=== PATIENT | female | born 1945 | race Caucasian/White ===

== ENCOUNTER 2017-03-22 14:44 | Observation (INO) | payer MEDICARE ==
--- NOTE | 2017-03-22 16:26 | ED ---
General Adult HPI - General Chief complaint: Chest Pain Stated complaint: Near-syncope Time Seen by Provider: 03/22/17 16:01 Source: patient, RN notes reviewed Mode of arrival: wheelchair Limitations: no limitations - History of Present Illness Initial comments: Patient is a pleasant 71-year-old female presenting to the emergency department for near syncopal episode. Episode occurred last night following a stressful situation. Patient did fall down and did feel like she was about to pass out. Patient did not fully pass out. Patient has had a few similar episodes in the past. Patient denies any chest discomfort last night. Patient states there was some discomfort between her shoulder ivis however this is fairly common for her. 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 Patient is symptom-free at this time. - Related Data Home Medications Medication Instructions Recorded Confirmed ALPRAZolam [Xanax] 0.25 mg PO TID PRN 03/22/17 03/22/17 Albuterol Nebulized [Ventolin 2.5 mg INHALATION RT-QID PRN 03/22/17 03/22/17 Nebulized] Aspirin EC [Ecotrin Low Dose] 81 mg PO DAILY 03/22/17 03/22/17 Dexamethasone [Hexadrol] 2 mg PO DAILY 03/22/17 03/22/17 Ergocalciferol [Vitamin D2] 50,000 unit PO MO 03/22/17 03/22/17 Esomeprazole Magnesium [NexIUM] 40 mg PO DAILY 03/22/17 03/22/17 Fluticasone/Vilanterol [Breo 1 puff INHALATION RT-DAILY 03/22/17 03/22/17 Ellipta 100-25 Mcg Inhaler] Folic Acid 1 mg PO DAILY 03/22/17 03/22/17 Furosemide [Lasix] 20 mg PO HS 03/22/17 03/22/17 Furosemide [Lasix] 40 mg PO DAILY 03/22/17 03/22/17 Lisinopril [Zestril] 5 mg PO BID 03/22/17 03/22/17 Methotrexate Sodium [Methotrexate] 7.5 mg PO MADISON@2100 03/22/17 03/22/17 Montelukast [Singulair] 10 mg PO HS 03/22/17 03/22/17 Nitroglycerin Sl Tabs [Nitrostat] 0.4 mg PO Q5M PRN 03/22/17 03/22/17 Potassium Chloride [Klor-Con 10] 5 meq PO DAILY 03/22/17 03/22/17 buPROPion [Wellbutrin] 75 mg PO DAILY 03/22/17 03/22/17 levETIRAcetam [Keppra] 500 mg PO BID 03/22/17 03/22/17 Allergies Allergy/AdvReac Type Severity Reaction Status Date / Time Penicillins Allergy Rash/Hives Verified 03/22/17 16:39 Review of Systems ROS Statement: Those systems with pertinent positive or pertinent negative responses have been documented in the HPI. ROS Other: All systems not noted in ROS Statement are negative. Constitutional: Denies: fever Eyes: Denies: eye pain ENT: Denies: ear pain Respiratory: Denies: cough Cardiovascular: Denies: palpitations Endocrine: Denies: fatigue Gastrointestinal: Denies: abdominal pain Genitourinary: Denies: dysuria Musculoskeletal: Reports: back pain Skin: Denies: rash Neurological: Denies: weakness Past Medical History Past Medical History: Asthma, Heart Failure, Hypertension, Rheumatoid Arthritis (RA) History of Any Multi-Drug Resistant Organisms: None Reported Past Surgical History: Cholecystectomy Past Psychological History: Anxiety, Depression Smoking Status: Former smoker Past Alcohol Use History: None Reported Past Drug Use History: None Reported General Exam Limitations: no limitations General appearance: alert, in no apparent distress Head exam: Present: atraumatic Eye exam: Present: normal appearance, PERRL ENT exam: Present: normal oropharynx Neck exam: Present: normal inspection Respiratory exam: Present: normal lung sounds bilaterally Cardiovascular Exam: Present: regular rate, normal rhythm Expanded Peripheral pulses: 2+: Radial (R), Radial (L), Dorsalis Pedis (R), Dorsalis Pedis (L) GI/Abdominal exam: Present: soft. Absent: distended, tenderness Extremities exam: Present: normal inspection Back exam: Present: normal inspection Neurological exam: Present: alert, oriented X3, CN II-XII intact. Absent: motor sensory deficit Expanded Motor strength exam: RUE: 5, LUE: 5, RLE: 5, LLE: 5 Psychiatric exam: Present: normal affect, normal mood Skin exam: Absent: rash Course Vital Signs 03/22/17 03/22/17 03/22/17 15:12 15:54 16:00 Temperature 98.3 F Pulse Rate 94 86 88 Respiratory 20 20 20 Rate Blood Pressure 131/74 147/81 138/84 O2 Sat by Pulse 96 96 96 Oximetry 03/22/17 03/22/17 16:54 17:11 Temperature Pulse Rate 86 81 Respiratory 20 20 Rate Blood Pressure 119/70 112/67 O2 Sat by Pulse 94 L 94 L Oximetry EKG Findings - EKG Comments: EKG Findings:: Normal sinus rhythm and 92. NJ 154. QRS 120. QT 374. QTC 462. Normal axis. Nonspecific intraventricular conduction delay. No acute ST changes. Medical Decision Making - Medical Decision Making Patient reexamined and resting comfortably in bed. Secondary to elevated d- dimer computed tomography scan of the chest has been ordered. Patient does have some sort of abnormality on previous computed tomography scan and is being seen at [facility] for this. Patient is scheduled for MRI on the of this month. Patient is updated regarding results. Patient is recommended admission. Patient would not like to have MRI done at this time and wants it kept on the at [place]. Case was discussed in detail with Dr. Sharif, who will admit for Dr. Loomis - Lab Data Result diagrams: 03/22/17 16:00 03/22/17 16:00 Lab Results 03/22/17 03/22/17 03/22/17 Range/Units 16:00 16:00 16:00 WBC 11.0 H (3.8-10.6) k/uL RBC 3.98 (3.80-5.40) m/uL Hgb 12.2 (11.4-16.0) gm/dL Hct 37.8 (34.0-46.0) % MCV 95.0 (80.0-100.0) fL MCH 30.7 (25.0-35.0) pg MCHC 32.4 (31.0-37.0) g/dL RDW 15.0 (11.5-15.5) % Plt Count 387 (150-450) k/uL Neutrophils % 88 % Lymphocytes % 6 % Monocytes % 5 % Eosinophils % 0 % Basophils % 0 % Neutrophils # 9.6 H (1.3-7.7) k/uL Lymphocytes # 0.7 L (1.0-4.8) k/uL Monocytes # 0.5 (0-1.0) k/uL Eosinophils # 0.0 (0-0.7) k/uL Basophils # 0.0 (0-0.2) k/uL PT (9.0-12.0) sec INR (<1.1) APTT (22.0-30.0) sec D-Dimer (<0.60) mg/L FEU Sodium 136 L (137-145) mmol/L Potassium 4.8 (3.5-5.1) mmol/L Chloride 100 (98-107) mmol/L Carbon Dioxide 29 (22-30) mmol/L Anion Gap 7 mmol/L BUN 19 H (7-17) mg/dL Creatinine 0.86 (0.52-1.04) mg/dL Est GFR (MDRD) Af Amer >60 (>60 ml/min/1.73 sqM) Est GFR (MDRD) Non-Af >60 (>60 ml/min/1.73 sqM) Glucose 110 H (74-99) mg/dL Calcium 9.3 (8.4-10.2) mg/dL Total Bilirubin 0.7 (0.2-1.3) mg/dL AST 30 (14-36) U/L ALT 37 (9-52) U/L Alkaline Phosphatase 82 (38-126) U/L Total Creatine Kinase 78 (30-135) U/L CK-MB (CK-2) 1.3 (0.0-2.4) ng/mL CK-MB (CK-2) Rel Index 1.7 Troponin I <0.012 (0.000-0.034) ng/mL Total Protein 7.0 (6.3-8.2) g/dL Albumin 3.9 (3.5-5.0) g/dL Urine Color Urine Appearance (Clear) Urine pH (5.0-8.0) Ur Specific [place] (1.001-1.035) Urine Protein (Negative) Urine Glucose (UA) (Negative) Urine Ketones (Negative) Urine Blood (Negative) Urine Nitrite (Negative) Urine Bilirubin (Negative) Urine Urobilinogen (<2.0) mg/dL Ur Leukocyte Esterase (Negative) 03/22/17 03/22/17 Range/Units 16:00 16:00 WBC (3.8-10.6) k/uL RBC (3.80-5.40) m/uL Hgb (11.4-16.0) gm/dL Hct (34.0-46.0) % MCV (80.0-100.0) fL MCH (25.0-35.0) pg MCHC (31.0-37.0) g/dL RDW (11.5-15.5) % Plt Count (150-450) k/uL Neutrophils % % Lymphocytes % % Monocytes % % Eosinophils % % Basophils % % Neutrophils # (1.3-7.7) k/uL Lymphocytes # (1.0-4.8) k/uL Monocytes # (0-1.0) k/uL Eosinophils # (0-0.7) k/uL Basophils # (0-0.2) k/uL PT 10.0 (9.0-12.0) sec INR 1.0 (<1.1) APTT 21.2 L (22.0-30.0) sec D-Dimer 1.30 H (<0.60) mg/L FEU Sodium (137-145) mmol/L Potassium (3.5-5.1) mmol/L Chloride (98-107) mmol/L Carbon Dioxide (22-30) mmol/L Anion Gap mmol/L BUN (7-17) mg/dL Creatinine (0.52-1.04) mg/dL Est GFR (MDRD) Af Amer (>60 ml/min/1.73 sqM) Est GFR (MDRD) Non-Af (>60 ml/min/1.73 sqM) Glucose (74-99) mg/dL Calcium (8.4-10.2) mg/dL Total Bilirubin (0.2-1.3) mg/dL AST (14-36) U/L ALT (9-52) U/L Alkaline Phosphatase (38-126) U/L Total Creatine Kinase (30-135) U/L CK-MB (CK-2) (0.0-2.4) ng/mL CK-MB (CK-2) Rel Index Troponin I (0.000-0.034) ng/mL Total Protein (6.3-8.2) g/dL Albumin (3.5-5.0) g/dL Urine Color Colorless Urine Appearance Clear (Clear) Urine pH 6.0 (5.0-8.0) Ur Specific [place] 1.002 (1.001-1.035) Urine Protein Negative (Negative) Urine Glucose (UA) Negative (Negative) Urine Ketones Negative (Negative) Urine Blood Negative (Negative) Urine Nitrite Negative (Negative) Urine Bilirubin Negative (Negative) Urine Urobilinogen <2.0 (<2.0) mg/dL Ur Leukocyte Esterase Negative (Negative) - Radiology Data Radiology results: report reviewed (He T scan of the brain shows vasogenic edema right posterior parietal/occipital region.), image reviewed (Two-view chest x-ray shows atelectasis.) Disposition Clinical Impression: Near syncope Disposition: ADMITTED IP TO THIS HOSP
[2017-03-22 16:34] LABS: Basophils % (A) 0 %; CHCM 32.8; Eosinophils % (A) 0 %; HCT 37.8 % (34.0-46.0); HDW 2.62; HGB 12.2 gm/dL (11.4-16.0); Luc % (Auto) 1; Lymphocytes # (A) 0.7 k/uL (1.0-4.8); Lymphocytes % (A) 6 %; MCH 30.7 pg (25.0-35.0); MCHC 32.4 g/dL (31.0-37.0); Mean Platelet Volume 6.5; Monocytes # (A) 0.5 k/uL (0-1.0); Monocytes % (A) 5 %; Neutrophils # (A) 9.6 k/uL (1.3-7.7); Neutrophils % (A) 88 %; RBC 3.98 m/uL (3.80-5.40)
[2017-03-22 16:40] LABS: Appearance,Urine Clear (Clear); Bilirubin,Urine Negative (Negative); Glucose,Urine (UA) Negative (Negative); Ketones,Urine Negative (Negative); Leukocyte Esterase,Urine Negative (Negative); Nitrite,Urine Negative (Negative); Protein,Urine Negative (Negative); Specific Gravity,Urine 1.002 (1.001-1.035); UA Billing (MACRO vs. MICRO) CHEM; Urobilinogen,Urine <2.0 mg/dL (<2.0)
[2017-03-22 16:44] LABS: ALT 37 U/L (9-52); AST 30 U/L (14-36); Alkaline Phosphatase 82 U/L (38-126); Anion Gap 7 mmol/L; Blood Urea Nitrogen 19 mg/dL (7-17); Calcium 9.3 mg/dL (8.4-10.2); Carbon Dioxide 29 mmol/L (22-30); Chloride 100 mmol/L (98-107); Glucose 110 mg/dL (74-99); Non-African American GFR(MDRD) >60 (>60 ml/min/1.73 sqM); Potassium 4.8 mmol/L (3.5-5.1); Sodium 136 mmol/L (137-145); Total Bilirubin 0.7 mg/dL (0.2-1.3)
[2017-03-22 16:58] LABS: Creatine Kinase 78 U/L (30-135)
--- NOTE | 2017-03-22 17:03 | CT ---
EXAMINATION TYPE: CT brain wo con DATE OF EXAM: 03/22/2017 4:52 PM COMPARISON: NONE INDICATION: episode of weakness yesterday. No known injury DLP: 1123 mGycm, Automated exposure control for dose reduction was used. CONTRAST: None CT of the brain is performed utilizing 3 mm thick sections through the posterior fossa and 3 mm thick sections through the remaining calvarium. Study is performed within 24 hours of arrival to the hosp ital. No abnormal hyperdensity is present to suggest an acute intracranial hemorrhage. No mass lesion is evident. No acute infarcts are evident. There is diffuse hypodensity within the deep white matter of the right centrum semiovale greater in the posterior parietal-occipital region suspicious for vasogenic edema from an underlying mass. Consider MRI with contrast for additional workup for neoplasm. This is effac ing the posterior horn left lateral ventricle. Ventricles and sulci are otherwise appropriate for the patient age. Paranasal sinuses and mastoid air cells within the [id number] are clear. IMPRESSIONS: 1. Vasogenic edema within the left right centrum semiovale suggesting an underlying neoplasm. Contr ast MRI brain is recommended for additional evaluation.
[2017-03-22 17:11] LABS: Creatine Kinase MB 1.3 ng/mL (0.0-2.4); Troponin I <0.012 ng/mL (0.000-0.034)
--- NOTE | 2017-03-22 17:28 | XR ---
EXAMINATION TYPE: XR chest 2V DATE OF EXAM: 03/22/2017 5:21 PM COMPARISON: 11/06/2016 HISTORY: Weakness TECHNIQUE: Frontal and lateral views of the chest are obtained. FINDINGS: There is some patchy linear density at the lung bases. There is no heart failure. There ar e no hilar masses. Thoracic aorta is atheromatous. There are chest leads. IMPRESSION: There is patchy atelectasis at the lung bases without significant change compared to las t exam. No heart failure.
[2017-03-22 17:38] LABS: Partial Thromboplastin Time 21.2 sec (22.0-30.0)
[2017-03-22] MEDS ORDERED: RX INFO: IV CONTRAST WAS GIVEN 1 EACH MISC MISCELLANE PRN (17:52)
[2017-03-22] MEDS ORDERED: NALOXONE 0.4 MG/ML 1 ML VIAL IV PRN (18:47)
--- NOTE | 2017-03-22 18:58 | CT ---
EXAMINATION TYPE: CT angio chest DATE OF EXAM: 03/22/2017 6:42 PM COMPARISON: NONE HISTORY: Chest pain and elevated d-dimer. CT DLP: 517.00 mGycm Automated exposure control for dose reduction was used. CONTRAST: CTA scan of the thorax is performed with IV Contrast, patient injected with 65 mL of Omnipaque 350, p ulmonary embolism protocol. There are 3-D post processed images.. FINDINGS: There is patchy interstitial infiltrate and atelectasis at the lung bases. There is elevated left abdiel phragm. There is no pleural effusion. There is no evidence of a pulmonary mass. There is no evidence of aortic aneurysm or dissection. I see no filling defects in the pulmonary devin gi. There is no pericardial effusion. There is a 6 x 3 cm oval-shaped mass at the posterior superio r surface of the right lobe of the liver. This could be an atypical cyst. The bony thorax appears int act. IMPRESSION: NO EVIDENCE OF PULMONARY EMBOLISM. PATCHY INFILTRATE AND ATELECTASIS AT THE LUNG BASES. OVAL-SHAPED LOW-DENSITY MASS ON THE POSTERIOR SUPERIOR SURFACE OF LIVER OF UNCERTAIN SIGNIFICANCE.
[2017-03-22] MEDS ORDERED: SODIUM CHLORIDE 0.9% 1,000 ML IV SCH (19:00)
[2017-03-22 21:34] VITALS: RESP 18
[2017-03-22 22:26] VITALS: BMI 47.5
[2017-03-22] MEDS ORDERED: ALPRAZolam 0.25 MG TAB PO PRN (22:57)
[2017-03-22] MEDS ORDERED: ALBUTEROL NEBULIZED 2.5 MG/3 ML INHALATION PRN (22:57)
[2017-03-22] MEDS ORDERED: NITROGLYCERIN SL TABS 0.4 MG TAB SUBLINGUAL PRN (22:57)
[2017-03-22] MEDS ORDERED: FUROSEMIDE 20 MG TAB PO SCH (23:00)
[2017-03-23] MEDS: levETIRAcetam 500 MG TAB PO SCH ×2 (00:11→08:47)
[2017-03-23] MEDS: buPROPion 75 MG TAB PO SCH ×3 (00:11→09:16)
[2017-03-23] MEDS: MONTELUKAST 10 MG TAB PO SCH ×2 (00:11→08:48)
[2017-03-23] MEDS: LISINOPRIL 5 MG TAB PO SCH ×2 (00:11→08:48)
[2017-03-23 07:19] LABS: Potassium 4.3 mmol/L (3.5-5.1)
[2017-03-23] MEDS ORDERED: PANTOPRAZOLE 40 MG TABLET PO SCH (07:30)
[2017-03-23] MEDS ORDERED: ALBUTEROL NEBULIZED 2.5 MG/3 ML INHALATION SCH (08:00)
[2017-03-23] MEDS ORDERED: SYMBICORT 80-4.5 MCG INHALER INHALATION SCH (08:00)
[2017-03-23] MEDS ORDERED: FOLIC ACID 1 MG TAB PO SCH (09:00)
[2017-03-23] MEDS ORDERED: DEXAMETHASONE 2 MG TAB PO SCH (09:00)
[2017-03-23] MEDS ORDERED: FUROSEMIDE 20 MG TAB PO SCH (09:00)
[2017-03-23] MEDS ORDERED: FUROSEMIDE 40 MG TAB PO SCH (09:00)
[2017-03-23] MEDS ORDERED: POTASSIUM CHLORIDE ER 10 MEQ TAB.ER.PRT PO SCH (09:00)
[2017-03-23] MEDS ORDERED: ASPIRIN 81 MG CHEW PO SCH (09:00)
--- NOTE | 2017-03-23 10:30 | P.CRDCN ---
History of Present Illness Consult date: 03/23/17 History of present illness: This is a 71-year-old female who was admitted to the hospital with an episode of fall and possible near-syncope. She claimed that has been having issues with falling and was seen by both guest services attendant and neurologist at [facility]. 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 She was seen by guest services attendant for symptoms of shortness of breath and also preop clearance. It appears that she had a noninvasive workup. Patient seemed to be advised to have a cardiac catheterization. However, we don't have any details. She wanted to establish with a local guest services attendant for a second opinion and possible clearance for brain surgery. Since admission here patient has been stable. She did complain of some chest pain and shortness of breath. EKGs did not reveal any acute changes. Cardiac enzymes are negative. Computed tomography scan of the brain showed some lesion in the brain, which is suggestive of possible tumor. She is waiting to be evaluated neurologist. However, patient wants to be discharged home and be seen by guest services attendant as an outpatient and she will keep her appointment with a neurologist. I do not see any major contraindication for discharging the patient. We'll try to get the previous workup done by her guest services attendant. She also claimed that she was told to have a congestive heart failure. Review of Systems As per the chart Past Medical History Past Medical History: Asthma, Heart Failure, Hypertension, Rheumatoid Arthritis (RA) History of Any Multi-Drug Resistant Organisms: None Reported Past Surgical History: Cholecystectomy, Tonsillectomy Past Anesthesia/Blood Transfusion Reactions: No Reported Reaction Past Psychological History: Anxiety, Depression Smoking Status: Former smoker Past Alcohol Use History: None Reported Past Drug Use History: None Reported - Past Family History Mother Family Medical History: Asthma Additional Family Medical History / Comment(s): depression Father Additional Family Medical History / Comment(s): ETOH Medications and Allergies Home Medications Medication Instructions Recorded Confirmed Type ALPRAZolam [Xanax] 0.25 mg PO TID PRN 03/22/17 03/22/17 History Albuterol Nebulized [Ventolin 2.5 mg INHALATION RT-QID PRN 03/22/17 03/22/17 History Nebulized] Aspirin EC [Ecotrin Low Dose] 81 mg PO DAILY 03/22/17 03/22/17 History Dexamethasone [Hexadrol] 2 mg PO DAILY 03/22/17 03/22/17 History Ergocalciferol [Vitamin D2] 50,000 unit PO MO 03/22/17 03/22/17 History Esomeprazole Magnesium [NexIUM] 40 mg PO DAILY 03/22/17 03/22/17 History Fluticasone/Vilanterol [Breo 1 puff INHALATION RT-DAILY 03/22/17 03/22/17 History Ellipta 100-25 Mcg Inhaler] Folic Acid 1 mg PO DAILY 03/22/17 03/22/17 History Furosemide [Lasix] 20 mg PO HS 03/22/17 03/22/17 History Furosemide [Lasix] 40 mg PO DAILY 03/22/17 03/22/17 History Lisinopril [Zestril] 5 mg PO BID 03/22/17 03/22/17 History Methotrexate Sodium [Methotrexate] 7.5 mg PO MADISON@2100 03/22/17 03/22/17 History Montelukast [Singulair] 5 mg PO BID 03/22/17 03/22/17 History Nitroglycerin Sl Tabs [Nitrostat] 0.4 mg PO Q5M PRN 03/22/17 03/22/17 History Potassium Chloride [Klor-Con 10] 5 meq PO DAILY 03/22/17 03/22/17 History buPROPion [Wellbutrin] 75 mg PO DAILY 03/22/17 03/22/17 History levETIRAcetam [Keppra] 500 mg PO BID 03/22/17 03/22/17 History Allergies Allergy/AdvReac Type Severity Reaction Status Date / Time Penicillins Allergy Rash/Hives Verified 03/22/17 22:06 Physical Exam Vitals: Vital Signs Temp Pulse Pulse Resp BP BP Pulse Ox 03/23/17 08:00 97.8 F 80 18 134/76 97 03/23/17 07:40 82 03/23/17 07:29 82 95 03/23/17 04:00 97.9 F 82 18 132/73 96 03/23/17 00:00 80 18 03/22/17 22:22 97.8 F 85 18 127/82 94 L 03/22/17 21:33 98.2 F 87 18 123/70 93 L 03/22/17 20:13 84 20 129/93 94 L 03/22/17 19:09 98.4 F 79 20 120/61 96 Intake and Output 03/22/17 03/23/17 03/23/17 22:59 06:59 14:59 Intake Total 260 600 Balance 260 600 Intake: Intake, IV Titration 160 Amount Sodium Chloride 0.9% 1, 160 000 ml @ 20 mls/hr IV . Q24H [facility] Rx#:[id number] Oral 100 600 Other: Voiding Method Toilet Toilet # Voids 2 Weight 114 kg GENERAL EXAM: Patient is alert and oriented and appears to be anxious. Obesity. HEENT: Normocephalic. Normal reaction of pupils, equal size, normal range of extraocular motion. No erythema or exudates in the throat. NECK: No masses, no nuchal rigidity. CHEST: No chest wall deformity. LUNGS: Equal air entry with no crackles or wheeze. HEART: S1 and S2 normal with no audible mumurs or gallops. Regular rhythm, femorals equal on both sides.. ABDOMEN: No hepatosplenomegaly, normal bowel sounds, no guarding or rigidity. SKIN: No rashes CENTRAL NERVOUS SYSTEM: No focal deficits. EXTREMITIES: Mild edema of the legs Results 03/22/17 16:00 03/23/17 06:34 Cardiac Enzymes 03/22/17 03/23/17 Range/Units 22:32 03:34 Troponin I <0.012 <0.012 (0.000-0.034) ng/mL Comprehensive Metabolic Panel 03/23/17 Range/Units 06:34 Sodium 139 (137-145) mmol/L Potassium 4.3 (3.5-5.1) mmol/L Chloride 102 (98-107) mmol/L Carbon Dioxide 32 H (22-30) mmol/L Current Medications Generic Name Dose Route Start Last Admin Trade Name Freq PRN Reason Stop Dose Admin Albuterol Sulfate 2.5 mg 03/22/17 22:57 Ventolin Nebulized INHALATION RT-QID PRN Shortness Of Breath Albuterol Sulfate 2.5 mg 03/23/17 08:00 03/23/17 07:29 Ventolin Nebulized INHALATION 2.5 mg RT-QID [facility]IKE Administration Alprazolam 0.25 mg 03/22/17 22:57 03/23/17 08:59 Xanax PO 0.25 mg TID PRN Administration Anxiety Aspirin 81 mg 03/23/17 09:00 03/23/17 08:47 Aspirin PO 81 mg DAILY [facility] Administration Budesonide/Formoterol Fumarate 2 puff 03/23/17 08:00 03/23/17 07:29 Symbicort 80-4.5 Mcg Inhaler INHALATION 2 puff RT-BID [facility]IKE Administration Bupropion HCl 75 mg 03/22/17 23:00 03/23/17 09:16 Wellbutrin PO 75 mg DAILY [facility] Administration Dexamethasone 2 mg 03/23/17 09:00 03/23/17 08:47 Hexadrol PO 2 mg DAILY [facility] Administration Ergocalciferol 50,000 unit 03/25/17 09:00 Vitamin D2 PO Mo@0900 [facility] Folic Acid 1 mg 03/23/17 09:00 03/23/17 08:48 Folic Acid PO 1 mg DAILY [facility] Administration Furosemide 20 mg 03/22/17 23:00 03/23/17 00:11 Lasix PO Not Given [facility] Furosemide 40 mg 03/23/17 09:00 03/23/17 06:55 Lasix PO 40 mg DAILY [facility] Administration Sodium Chloride 1,000 mls @ 20 mls/hr 03/22/17 19:00 03/23/17 00:10 Saline 0.9% IV Not Given .Q24H [facility] Levetiracetam 500 mg 03/22/17 23:00 03/23/17 08:47 Keppra PO 500 mg BID [facility] Administration Lisinopril 5 mg 03/22/17 23:00 03/23/17 08:48 Zestril PO 5 mg BID [facility] Administration Methotrexate 7.5 mg 03/24/17 21:00 Methotrexate PO MADISON@2100 [facility] Miscellaneous Information 1 each 03/22/17 17:52 Rx Info: Iv Contrast Was Given MISCELLANE 03/24/17 17:52 DAILY PRN Per Protocol Montelukast Sodium 5 mg 03/22/17 23:00 03/23/17 08:48 Singulair PO 5 mg BID [facility] Administration Naloxone HCl 0.2 mg 03/22/17 18:47 Narcan IV Q2M PRN Opioid Reversal Nitroglycerin 0.4 mg 03/22/17 22:57 Nitrostat SUBLINGUAL Q5M PRN Chest Pain Pantoprazole Sodium 40 mg 03/23/17 07:30 03/23/17 08:48 Protonix PO 40 mg [id number] [facility] Administration Potassium Chloride 5 meq 03/23/17 09:00 03/23/17 08:47 K-Dur 10 PO 5 meq DAILY [facility] Administration Intake and Output 03/22/17 03/23/17 03/23/17 22:59 06:59 14:59 Intake Total 260 600 Balance 260 600 Intake: Intake, IV Titration 160 Amount Sodium Chloride 0.9% 1, 160 000 ml @ 20 mls/hr IV . Q24H [facility] Rx#:[id number] Oral 100 600 Other: Voiding Method Toilet Toilet # Voids 2 Weight 114 kg 03/23/17 06:34 EKG Interpretations (text) Sinus rhythm with a left bundle branch block pattern Assessment and Plan (1) Left bundle branch block Status: Acute (2) Near syncope Status: Acute (3) History of brain tumor Status: Acute (4) History of congestive heart failure Status: Acute (5) Hypertension Status: Acute Plan: We'll check her blood pressure for postural changes. Continue to monitor for any arrhythmias. Get the workup done by previous guest services attendant. Follow-up in the office as an outpatient in one week.
[2017-03-23 12:02] VITALS: BP 128/68; PULSE 85; TEMP 98.1
--- NOTE | 2017-03-23 13:53 | P.HPIM ---
History of Present Illness H&P Date: 03/23/17 Chief Complaint: Pre syncope Isabel Gardner is a 71-year-old female who was admitted to the hospital with an episode of fall and possible near-syncope. She states that has been having issues with falling and was seen by both service administrator and neurologist at [facility]. she was found to have a benign brain tumor and was waiting to have surgery done. She was seen by service administrator for symptoms of shortness of breath and also preop clearance. It appears that she had a noninvasive workup. Patient seemed to be advised to have a cardiac catheterization. Which she did not have have yet. She wanted to establish with a local service administrator for a second opinion and possible clearance for brain surgery. Since admission here patient has been stable. She did complain of some chest pain and shortness of breath. EKGs did not reveal any acute changes. Cardiac enzymes are negative. Computed tomography scan of the brain showed some lesion in the brain, which is suggestive of possible tumor. She is waiting to be evaluated neurologist. However, patient wants to be discharged home and be seen by service administrator as an outpatient. Past Medical History Past Medical History: Asthma, Heart Failure, Hypertension, Rheumatoid Arthritis (RA) History of Any Multi-Drug Resistant Organisms: None Reported Past Surgical History: Cholecystectomy, Tonsillectomy Past Anesthesia/Blood Transfusion Reactions: No Reported Reaction Past Psychological History: Anxiety, Depression Smoking Status: Former smoker Past Alcohol Use History: None Reported Past Drug Use History: None Reported - Past Family History Mother Family Medical History: Asthma Additional Family Medical History / Comment(s): depression Father Additional Family Medical History / Comment(s): ETOH Medications and Allergies Home Medications Medication Instructions Recorded Confirmed Type ALPRAZolam [Xanax] 0.25 mg PO TID PRN 03/22/17 03/22/17 History Albuterol Nebulized [Ventolin 2.5 mg INHALATION RT-QID PRN 03/22/17 03/22/17 History Nebulized] Aspirin EC [Ecotrin Low Dose] 81 mg PO DAILY 03/22/17 03/22/17 History Dexamethasone [Hexadrol] 2 mg PO DAILY 03/22/17 03/22/17 History Ergocalciferol [Vitamin D2] 50,000 unit PO MO 03/22/17 03/22/17 History Esomeprazole Magnesium [NexIUM] 40 mg PO DAILY 03/22/17 03/22/17 History Fluticasone/Vilanterol [Breo 1 puff INHALATION RT-DAILY 03/22/17 03/22/17 History Ellipta 100-25 Mcg Inhaler] Folic Acid 1 mg PO DAILY 03/22/17 03/22/17 History Furosemide [Lasix] 20 mg PO HS 03/22/17 03/22/17 History Furosemide [Lasix] 40 mg PO DAILY 03/22/17 03/22/17 History Lisinopril [Zestril] 5 mg PO BID 03/22/17 03/22/17 History Methotrexate Sodium [Methotrexate] 7.5 mg PO [place]@2100 03/22/17 03/22/17 History Montelukast [Singulair] 5 mg PO BID 03/22/17 03/22/17 History Nitroglycerin Sl Tabs [Nitrostat] 0.4 mg PO Q5M PRN 03/22/17 03/22/17 History Potassium Chloride [Klor-Con 10] 5 meq PO DAILY 03/22/17 03/22/17 History buPROPion [Wellbutrin] 75 mg PO DAILY 03/22/17 03/22/17 History levETIRAcetam [Keppra] 500 mg PO BID 03/22/17 03/22/17 History Allergies Allergy/AdvReac Type Severity Reaction Status Date / Time Penicillins Allergy Rash/Hives Verified 03/22/17 22:06 Physical Exam Vitals: Vital Signs Temp Pulse Pulse Resp BP BP Pulse Ox 03/23/17 12:00 98.1 F 85 18 128/68 94 L 03/23/17 08:00 97.8 F 80 18 134/76 97 03/23/17 07:40 82 03/23/17 07:29 82 95 03/23/17 04:00 97.9 F 82 18 132/73 96 03/23/17 00:00 80 18 03/22/17 22:22 97.8 F 85 18 127/82 94 L 03/22/17 21:33 98.2 F 87 18 123/70 93 L 03/22/17 20:13 84 20 129/93 94 L 03/22/17 19:09 98.4 F 79 20 120/61 96 Intake and Output 03/22/17 03/23/17 03/23/17 22:59 06:59 14:59 Intake Total 260 600 Balance 260 600 Intake: Intake, IV Titration 160 Amount Sodium Chloride 0.9% 1, 160 000 ml @ 20 mls/hr IV . Q24H [facility] Rx#:[id number] Oral 100 600 Other: Voiding Method Toilet Toilet # Voids 2 Weight 114 kg In general patient is alert and oriented 3 in no apparent distress HEENT head normocephalic and atraumatic, there is evidence of prolonged steroid use Neck is supple no JVD no goiter no lymphadenopathy Chest examination reveals a few scattered crackles no wheezing Cardiac exam reveals regular heart sounds no gallops no murmurs Abdomen is soft nontender no organomegaly was normal bowel sounds Extremity exam reveals no edema no cyanosis or clubbing Results CBC & Chem 7: 03/22/17 16:00 03/23/17 06:34 Labs: Abnormal Lab Results - Last 24 Hours (Table) 03/23/17 Range/Units 06:34 Carbon Dioxide 32 H (22-30) mmol/L Thrombosis Risk Factor Assmnt - Choose All That Apply Each Risk Factor Represents 2 Points: Age 61-74 years Thrombosis Risk Factor Assessment Total Risk Factor Score: 2 Thrombosis Risk Factor Assessment Level: Low Risk Assessment and Plan Plan: #1 Pre syncope with fall #2 left bundle branch block #3 history of brain tumor, followed at [facility] #4 recent diagnosis of congestive heart failure without evidence of acute exacerbation at this time #5 hypertension At this time patient is stable she did not have any recurrence of her symptoms since admission She is requesting to be discharged home She was seen by cardiology and was cleared for discharge She will follow-up with cardiology and neurology as outpatient She was instructed to return to the hospital if having any new symptoms She was advised to avoid driving and avoid unprotected heights until further testing results are available
--- NOTE | 2017-03-23 14:00 | P.DS ---
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 want consulting provider notified?: Yes, Notify in am Primary care physician: Marcia Loomis [facility] Course: Diagnosis on discharge #1 Pre syncope #2 left bundle branch block #3 history of brain tumor #4 hypertension #5 recent diagnosis of congestive heart failure #6 underlying history of rheumatoid arthritis #7 hypertension Hospital course patient is a 71-year-old female admitted to [facility] after having a near syncopal episode Patient was admitted to 24-hour observation she was seen by cardiology She was recently evaluated by cardiology at [facility] she had an echocardiogram which revealed evidence of congestive heart failure results are not available to me at this time Patient was advised to have a cardiac catheterization which she did not have so far She has known history of brain tumor evaluated by Dr. Feldman neurosurgeon and is undergoingpre of surgical testing Patient was evaluated by cardiology during this admission cardiac enzymes were within normal limits Patient did not have any recurrence of her symptoms while observed in the hospital She was requesting to be discharged home to continue her workup as outpatient Was asymptomatic she was cleared for discharge by cardiology She was discharged home on 03/23/2017 She will follow-up with her primary care physician Dr. Marcia Loomis within one week She will also follow-up was Dr. Mcnamara at [facility] [place] She will also follow with physicians at [facility] in that regard to her brain tumor Plan - Discharge Summary Discharge Medication List ALPRAZolam [Xanax] 0.25 mg PO TID PRN 03/22/17 [History] Albuterol Nebulized [Ventolin Nebulized] 2.5 mg INHALATION RT-QID PRN 03/22/17 [ History] Aspirin EC [Ecotrin Low Dose] 81 mg PO DAILY 03/22/17 [History] Dexamethasone [Hexadrol] 2 mg PO DAILY 03/22/17 [History] Ergocalciferol [Vitamin D2 (DRISDOL)] 50,000 unit PO MO 03/22/17 [History] Esomeprazole Magnesium [NexIUM] 40 mg PO DAILY 03/22/17 [History] Fluticasone/Vilanterol [Breo Ellipta 100-25 Mcg Inhaler] 1 puff INHALATION RT- DAILY 03/22/17 [History] Folic Acid 1 mg PO DAILY 03/22/17 [History] Furosemide [Lasix] 20 mg PO HS 03/22/17 [History] Furosemide [Lasix] 40 mg PO DAILY 03/22/17 [History] Lisinopril [Zestril] 5 mg PO BID 03/22/17 [History] Methotrexate Sodium [Methotrexate] 7.5 mg PO [place]@2100 03/22/17 [History] Montelukast [Singulair] 5 mg PO BID 03/22/17 [History] Nitroglycerin Sl Tabs [Nitrostat] 0.4 mg PO Q5M PRN 03/22/17 [History] Potassium Chloride [Klor-Con 10] 5 meq PO DAILY 03/22/17 [History] buPROPion [Wellbutrin] 75 mg PO DAILY 03/22/17 [History] levETIRAcetam [Keppra] 500 mg PO BID 03/22/17 [History] Follow up Appointment(s)/Referral(s): Marcia Loomis DO [Primary Care Provider] - 1-2 days
--- NOTE | 2017-03-23 16:00 | CONS ---
DATE OF CONSULTATION: This is a 71-year-old female well known to me. She has a history of chronic bronchial asthma for which I see her for. Her primary doctor is Dr. Loomis, I believe. Anyway, she presented to the emergency room with complaints of a near syncopal episode. Also having some possible chest pain. Was very stressful last night, apparently having argument with her daughter, Heidi. She apparently fell as well. There was no loss of consciousness. Anyway the patient wanted to be seen by surveyor rod helper and to be evaluated. From the asthma standpoint, she is mildly short of breath. Little bit of cough and wheezing, but not enough to really have to come into the emergency room. She states that this would on its own would not have caused her to come in to the ER. No fever, no chills. No nausea, vomiting, or diarrhea. Her medications include alprazolam, albuterol, aspirin, Hexadrol, vitamin D2, Nexium, Breo, Singulair, albuterol updrafts and albuterol inhaler, folic acid, Lasix, lisinopril, methotrexate, montelukast, as I mentioned Singulair, nitroglycerin, potassium, Wellbutrin and Keppra. ALLERGIES: PENICILLIN. Medical history includes chronic bronchial asthma, heart failure, hypertension, rheumatoid arthritis, anxiety, depression. Surgical history includes a previous cholecystectomy. Social history is positive for previous tobacco use. Denies any significant alcohol use or illicit drug use. Family history is noncontributory. Occupational history is noncontributory. She is originally from [place]. REVIEW OF SYSTEMS: CONSTITUTIONAL: Negative. NEUROLOGICAL: Anxiety. HEENT: Negative. CARDIOVASCULAR: Near syncope/syncope. PULMONARY: Mild cough and wheezing. GI/: Negative. RHEUMATOLOGICAL/IMMUNOLOGIC: Negative. ENDOCRINOLOGIC: Negative. DERMATOLOGIC: Negative. Current vital signs include temperature 98.1, heart rate 85, respiratory rate 18, blood pressure 120/68, room air saturation 97%. Appears in no acute distress, looks well. No jay distress. No audible wheezing. HEENT examination is grossly unremarkable. Mucous membranes are moist. No oral lesions. TM, ACs are normal. NECK: Supple. Full range of motion. No adenopathy or thyromegaly. Neck is veins are flat. Cardiovascular examination reveals regular rhythm and rate. S1, S2 normal. No S3, S4 or murmur. Lungs reveal a few scattered expiratory wheezes. Breath sounds are slightly diminished. Slight prolongation. Slight wheezes. No crackles. Abdomen is soft. Bowel sounds are heard. No masses or tenderness. Extremities are intact. No cyanosis, clubbing or edema. Skin without rash or lesion. Neurologic examination is brief but nonfocal. Labs are reviewed. White count 11. Hemoglobin 12.2, hematocrit 37.8, platelet count 238,000. PT 10, INR 1, PTT 21.2. D-dimer 1.3. Sodium 136, potassium 4.8, chloride 100, CO2 of 29. BUN and creatinine were 19 and 0.86. The rest of the labs look okay. Urine is negative. Troponins negative x3. The patient had a chest x-ray which showed some patchy atelectasis at the lung bases without significant change all the way dating back to November. The brain CT was done and shows vasogenic edema within the deep white matter of the right centrum semiovale suspicious for possible mass. An MRI was recommended. A CT of the chest showed no evidence of PE. There is a patchy infiltrate and atelectasis at the lung bases. There is an oval shaped low density mass on the superior surface of the liver of unclear or uncertain significance. Microbiology is all negative. Labs have been reviewed. Medications are reviewed. She is on Xanax, albuterol, aspirin, Symbicort and dexamethasone, vitamin D, folic acid, Lasix, lisinopril, methotrexate, montelukast, Narcan, nitroglycerin sublingual, Protonix, potassium, Keppra, Wellbutrin and a 0.9 IV. ASSESSMENT: 1. Near syncope/syncope of unclear etiology. 2. Possible brain lesion, to be evaluated with MRI/MRA. 3. History of chronic bronchial asthma. 4. History of rheumatoid arthritis. 5. History of congestive heart failure. 6. History of hypertension. 7. History of anxiety/depression. PLAN: From the pulmonary standpoint, the patient could be discharged. She is on a good breathing regimen of short acting beta agonist and leukotriene receptor antagonist and combination of corticosteroid/long acting beta agonist in the form Breo. She will follow up with me in the office. Obviously, a couple things seem to be evaluated including her syncope/near syncope as well as the abnormal findings in CT scan of possible brain lesion. Will continue to follow. Additional recommendations and suggestions are forthcoming. Prognosis is guarded.
[2017-03-24] MEDS ORDERED: METHOTREXATE SODIUM 2.5 MG TAB PO SCH (21:00)
[2017-03-25] MEDS ORDERED: ERGOCALCIFEROL 50,000 UNIT CAP PO SCH (09:00)
== END 2017-03-23 15:54 | disposition home or self-care (01) ==
LOC: EC 14:44 → 3OBS 18:48
PROVIDERS: ADMIT Internal Medicine; ATTEND Internal Medicine
DX: R55 Syncope and collapse (principal); I44.7 Left bundle-branch block, unspecified; I11.0 Hypertensive heart disease with heart failure; I50.9 Heart failure, unspecified; D33.2 Benign neoplasm of brain, unspecified; F32.9 Major depressive disorder, single episode, unspecified; F41.9 Anxiety disorder, unspecified; J45.909 Unspecified asthma, uncomplicated; M06.9 Rheumatoid arthritis, unspecified; Z79.899 Other long term (current) drug therapy; Z87.891 Personal history of nicotine dependence; Z79.82 Long term (current) use of aspirin; Z88.0 Allergy status to penicillin
CPT/HCPCS: 99285 ×2; 36415; 94640; 94760; 93005; 85379; 80051; 80053; 82550; 82553; 84484 ×2; 85025; 85610; 85730; 81003; 71020; 70450; 71275; G0378 ×2; Q9967; J8540

== ENCOUNTER 2017-06-14 18:21 | Emergency (ER) | payer MEDICARE ==
[2017-06-14 18:48] VITALS: TEMP 97.9
[2017-06-14] MEDS ORDERED: RX INFO: IV CONTRAST WAS GIVEN 1 EACH MISC MISCELLANE PRN (19:53)
[2017-06-14] MEDS ORDERED: MORPHINE SULFATE 10 MG/ML SYRINGE IM STA (19:55)
--- NOTE | 2017-06-14 20:12 | ED ---
Back Pain [facility] - General Chief Complaint: Back Pain/Injury Stated Complaint: back pain Time Seen by Provider: 06/14/17 19:18 Source: patient Mode of arrival: wheelchair Limitations: no limitations - History of Present Illness Initial Comments: Patient is a 72-year-old female with a history of rheumatoid arthritis, chronically on steroids who presents with a chief complaint back pain. The patient states that this is been going on for several months however it is gradually getting worse. The patient denies any new injury, and is unable to recall an inciting factor that may have made her back hurt worse. She cannot localize her back pain saying that it is her entire upper back. She does admit that it is worse under the right shoulder blade. Patient states that standing, twisting, bending or aggravating factors. Alleviating factors are none. Timing is constant. Patient was recently seen in the emergency department for the same complaint. That time she had a thorough workup including a d-dimer followed by a CT PE. Patient does state however that she recently returned from a 14 hour car ride yesterday. She also describes pain with deep inspiration. MD Complaint: back pain Onset/Timin -: month(s) Similar Symptoms Previously: Yes Radiation: none Severity: moderate Quality: sharp, aching Consistency: constant Improves With: immobilization Worsens With: movement, walking, deep breaths/cough Context: other (Rheumatoid arthritis) Associated Symptoms: difficulty walking, cough, shortness of breath - Related Data Home Medications Medication Instructions Recorded Confirmed ALPRAZolam [Xanax] 0.25 mg PO TID PRN 03/22/17 06/14/17 Albuterol Nebulized [Ventolin 2.5 mg INHALATION RT-BID 03/22/17 06/14/17 Nebulized] Aspirin EC [Ecotrin Low Dose] 81 mg PO HS 03/22/17 06/14/17 Dexamethasone [Hexadrol] 2 mg PO DAILY 03/22/17 06/14/17 Ergocalciferol [Vitamin D2 50,000 unit PO MO 03/22/17 06/14/17 (DRISDOL)] Fluticasone/Vilanterol [Breo 1 puff INHALATION RT-DAILY 03/22/17 06/14/17 Ellipta 100-25 Mcg Inhaler] Folic Acid 1 mg PO DAILY 03/22/17 06/14/17 Furosemide [Lasix] 20 mg PO HS 03/22/17 06/14/17 Furosemide [Lasix] 40 mg PO DAILY 03/22/17 06/14/17 Lisinopril [Zestril] 5 mg PO BID 03/22/17 06/14/17 Methotrexate Sodium [Methotrexate] 12.5 mg PO MO 03/22/17 06/14/17 Montelukast [Singulair] 10 mg PO DAILY 03/22/17 06/14/17 Nitroglycerin Sl Tabs [Nitrostat] 0.4 mg SUBLINGUAL Q5M PRN 03/22/17 06/14/17 levETIRAcetam [Keppra] 500 mg PO BID 03/22/17 06/14/17 Albuterol Inhaler [Ventolin Hfa 1 - 2 puff INHALATION RT-QID PRN 06/14/17 Inhaler] Esomeprazole Magnesium [NexIUM 20 mg PO BID 06/14/17 06/14/17 24Hr] buPROPion [Wellbutrin] 37.5 mg PO BID 06/14/17 06/14/17 predniSONE 5 mg PO DAILY 06/14/17 06/14/17 traMADol HCL [Ultram] 50 mg PO Q6HR 06/14/17 06/14/17 Previous Rx's Medication Instructions Recorded Cyclobenzaprine [Flexeril] 5 mg PO HS PRN #12 tab 06/14/17 HYDROcodone/APAP 5-325MG [[place] 1 tab PO Q6HR PRN #12 tab 06/14/17 5-325] Allergies Allergy/AdvReac Type Severity Reaction Status Date / Time Penicillins Allergy Rash/Hives Verified 03/22/17 22:06 Review of Systems ROS Statement: Those systems with pertinent positive or pertinent negative responses have been documented in the HPI. Patient denies fevers, chills, lightheadedness, dizziness, visual changes, chest pain, abdominal pain, nausea, vomiting, diarrhea, dysuria, constipation. Patient does admit to shortness of breath, and back pain. ROS Other: All systems not noted in ROS Statement are negative. Past Medical History Past Medical History: Asthma, Heart Failure, Hypertension, Rheumatoid Arthritis (RA) History of Any Multi-Drug Resistant Organisms: None Reported Past Surgical History: Cholecystectomy, Tonsillectomy Past Anesthesia/Blood Transfusion Reactions: No Reported Reaction Past Psychological History: Anxiety, Depression Smoking Status: Former smoker Past Alcohol Use History: None Reported Past Drug Use History: None Reported - Past Family History Mother Family Medical History: Asthma Additional Family Medical History / Comment(s): depression Father Additional Family Medical History / Comment(s): ETOH General Exam Limitations: no limitations General appearance: alert, in no apparent distress, anxious Head exam: Present: atraumatic, normocephalic Eye exam: Present: normal appearance Pupils: Present: normal accommodation ENT exam: Present: mucous membranes moist Neck exam: Present: normal inspection Respiratory exam: Present: normal lung sounds bilaterally Cardiovascular Exam: Present: regular rate, normal rhythm GI/Abdominal exam: Present: soft Rectal exam: Present: deferred Extremities exam: Present: normal inspection Back exam: Present: tenderness, paraspinal tenderness, vertebral tenderness Neurological exam: Present: alert, oriented X3 Psychiatric exam: Present: normal affect, normal mood Skin exam: Present: warm, dry, intact Course Vital Signs 06/14/17 06/14/17 18:45 21:47 Temperature 97.9 F Pulse Rate 98 72 Respiratory 17 18 Rate Blood Pressure 145/79 144/81 O2 Sat by Pulse 93 L Oximetry Medical Decision Making - Medical Decision Making Patient is 72-year-old female who presents with a chief complaint of back pain, and pleuritic chest pain. Patient recently returned from a 14 hour car ride yesterday. Patient states she has chronic back pain secondary to her rheumatoid arthritis however it has been getting worse. On initial evaluation, patient's vital signs are stable however her pulse oximetry on room air is 93%. Patient is able to speak in full sentences, and is not conversationally dyspneic. Computed tomography scan from 03/22/2017 shows normal appearance of the chest. At that time only thorax was intact. EKG performed at 2016 shows sinus rhythm with PACs. Patient has a nonspecific intraventricular block. Ventricular rate is 89 bpm. EKG is similar to previous study performed on 03/22. 11:15 PM Lab evaluation of this patient is unremarkable. Urinalysis does not show evidence of infection. Computed tomography scan of the chest did not show evidence of pulmonary embolism. Computed tomography scan of the thoracic spine shows a new T6 compression fracture when compared to previous study done in March of this year. Etiology of this fracture is likely osteopenic this patient is on chronic steroids. I discussed the results with the patient. I told the patient that I would prescribe her a short course of [place], and Flexeril. She was instructed to take half a tablet to one full tablet every 6 hours for severe pain. She was counseled at length about the possible side effects of narcotic pain medications, and was told to be extremely cautious, to not operate machinery, and to stop taking the medications if she has any adverse reactions. The patient and her daughter state understanding. They're agreeable with this care plan. Patient is instructed to return to the emergency department if her symptoms worsen or change in any way. Patient is otherwise instructed to follow-up with her primary care doctor in one to 3 days. - Lab Data Result diagrams: 06/14/17 20:25 06/14/17 20:25 Lab Results 06/14/17 06/14/17 06/14/17 Range/Units 20:21 20:25 20:25 WBC 12.9 H (3.8-10.6) k/uL RBC 4.20 (3.80-5.40) m/uL Hgb 13.1 (11.4-16.0) gm/dL Hct 38.8 (34.0-46.0) % MCV 92.4 (80.0-100.0) fL MCH 31.2 (25.0-35.0) pg MCHC 33.8 (31.0-37.0) g/dL RDW 14.7 (11.5-15.5) % Plt Count 399 (150-450) k/uL Neutrophils % 89 % Lymphocytes % 4 % Monocytes % 5 % Eosinophils % 0 % Basophils % 0 % Neutrophils # 11.5 H (1.3-7.7) k/uL Lymphocytes # 0.5 L (1.0-4.8) k/uL Monocytes # 0.7 (0-1.0) k/uL Eosinophils # 0.0 (0-0.7) k/uL Basophils # 0.0 (0-0.2) k/uL Sodium 135 L (137-145) mmol/L Potassium 4.4 (3.5-5.1) mmol/L Chloride 98 (98-107) mmol/L Carbon Dioxide 29 (22-30) mmol/L Anion Gap 8 mmol/L BUN 16 (7-17) mg/dL Creatinine 0.80 (0.52-1.04) mg/dL Est GFR (MDRD) Af Amer >60 (>60 ml/min/1.73 sqM) Est GFR (MDRD) Non-Af >60 (>60 ml/min/1.73 sqM) Glucose 97 (74-99) mg/dL Calcium 9.1 (8.4-10.2) mg/dL Troponin I (0.000-0.034) ng/mL Urine Color Yellow Urine Appearance Clear (Clear) Urine pH 6.5 (5.0-8.0) Ur Specific [place] 1.009 (1.001-1.035) Urine Protein Negative (Negative) Urine Glucose (UA) Negative (Negative) Urine Ketones Negative (Negative) Urine Blood Negative (Negative) Urine Nitrite Negative (Negative) Urine Bilirubin Negative (Negative) Urine Urobilinogen <2.0 (<2.0) mg/dL Ur Leukocyte Esterase Negative (Negative) 06/14/17 Range/Units 20:25 WBC (3.8-10.6) k/uL RBC (3.80-5.40) m/uL Hgb (11.4-16.0) gm/dL Hct (34.0-46.0) % MCV (80.0-100.0) fL MCH (25.0-35.0) pg MCHC (31.0-37.0) g/dL RDW (11.5-15.5) % Plt Count (150-450) k/uL Neutrophils % % Lymphocytes % % Monocytes % % Eosinophils % % Basophils % % Neutrophils # (1.3-7.7) k/uL Lymphocytes # (1.0-4.8) k/uL Monocytes # (0-1.0) k/uL Eosinophils # (0-0.7) k/uL Basophils # (0-0.2) k/uL Sodium (137-145) mmol/L Potassium (3.5-5.1) mmol/L Chloride (98-107) mmol/L Carbon Dioxide (22-30) mmol/L Anion Gap mmol/L BUN (7-17) mg/dL Creatinine (0.52-1.04) mg/dL Est GFR (MDRD) Af Amer (>60 ml/min/1.73 sqM) Est GFR (MDRD) Non-Af (>60 ml/min/1.73 sqM) Glucose (74-99) mg/dL Calcium (8.4-10.2) mg/dL Troponin I <0.012 (0.000-0.034) ng/mL Urine Color Urine Appearance (Clear) Urine pH (5.0-8.0) Ur Specific [place] (1.001-1.035) Urine Protein (Negative) Urine Glucose (UA) (Negative) Urine Ketones (Negative) Urine Blood (Negative) Urine Nitrite (Negative) Urine Bilirubin (Negative) Urine Urobilinogen (<2.0) mg/dL Ur Leukocyte Esterase (Negative) Disposition Clinical Impression: Wedge compression fracture of T6 vertebra, Muscle spasm of back Disposition: HOME SELF-CARE Condition: Good Instructions: Vertebral Compression Fracture (ED) Prescriptions: Cyclobenzaprine [Flexeril] 5 mg PO HS PRN #12 tab PRN Reason: Muscle Spasm HYDROcodone/APAP 5-325MG [[place] 5-325] 1 tab PO Q6HR PRN #12 tab PRN Reason: Pain Referrals: Marcia Loomis DO [Primary Care Provider] - 1-2 days
[2017-06-14 20:36] LABS: Appearance,Urine Clear (Clear); Bilirubin,Urine Negative (Negative); Glucose,Urine (UA) Negative (Negative); Ketones,Urine Negative (Negative); Leukocyte Esterase,Urine Negative (Negative); Nitrite,Urine Negative (Negative); PH, Urine 6.5 (5.0-8.0); Protein,Urine Negative (Negative); Specific Gravity,Urine 1.009 (1.001-1.035); UA Billing (MACRO vs. MICRO) CHEM; Urobilinogen,Urine <2.0 mg/dL (<2.0)
[2017-06-14 20:46] LABS: Basophils % (A) 0 %; CH 30.4; Eosinophils % (A) 0 %; HCT 38.8 % (34.0-46.0); HDW 2.47; HGB 13.1 gm/dL (11.4-16.0); Luc # (Auto) 0.14; Luc % (Auto) 1; Lymphocytes # (A) 0.5 k/uL (1.0-4.8); Lymphocytes % (A) 4 %; MCH 31.2 pg (25.0-35.0); MCHC 33.8 g/dL (31.0-37.0); MCV 92.4 fL (80.0-100.0); Mean Platelet Volume 6.7; Monocytes # (A) 0.7 k/uL (0-1.0); Monocytes % (A) 5 %; Neutrophils # (A) 11.5 k/uL (1.3-7.7); Neutrophils % (A) 89 %; RDW 14.7 % (11.5-15.5); WBC 12.9 k/uL (3.8-10.6); WBC (Perox) 13.32
[2017-06-14 20:55] LABS: Anion Gap 8 mmol/L; Blood Urea Nitrogen 16 mg/dL (7-17); Calcium 9.1 mg/dL (8.4-10.2); Carbon Dioxide 29 mmol/L (22-30); Chloride 98 mmol/L (98-107); Glucose 97 mg/dL (74-99); Non-African American GFR(MDRD) >60 (>60 ml/min/1.73 sqM); Potassium 4.4 mmol/L (3.5-5.1); Sodium 135 mmol/L (137-145)
--- NOTE | 2017-06-14 22:01 | CT ---
EXAMINATION TYPE: CT angio chest DATE OF EXAM: 06/14/2017 9:39 PM COMPARISON: 03/22/2017 HISTORY: Diffuse back pain and shortness of breath. CT DLP: 808.70 mGycm Automated exposure control for dose reduction was used. CONTRAST: CTA scan of the thorax is performed with IV Contrast, patient injected with 75 mL of Omnipaque 350, p ulmonary embolism protocol. . FINDINGS: LUNGS: The lungs are grossly clear, there is no concerning parenchymal mass or nodule identified. T here is no pleural effusion or pneumothorax seen. The tracheobronchial tree is patent. MEDIASTINUM: There is satisfactory enhancement of the pulmonary artery and its branches, there is no CT evidence for pulmonary embolism. There are no greater than 1 cm hilar or mediastinal lymph nodes. No pericardial effusion is seen. IMPRESSION: NO ACUTE PROCESS.
--- NOTE | 2017-06-14 22:07 | CT ---
EXAMINATION TYPE: CT thoracic spine w con COMPARISON: Chest radiographs 03/22/2017 DATE OF EXAM: 06/14/2017 HISTORY: Diffuse back pain and shortness of breath. CT DLP: 808.70 mGycm. Automated exposure control for dose reduction was used. CONTRAST: Performed with IV Contrast, patient injected with 75 mL of Omnipaque 350. FINDINGS: The T6 vertebral body is decreased in its height to a mild degree, hyperdense subendplate attenuation with respect to the superior endplate. There is a background of diffuse osteopenia. To gather, the findings suggest mild T6 vertebral body compression. It is difficult to use the compar alejandro lateral chest radiograph due to body habitus, but there is suggestion that this may be a new com pression since the March 2017 study, clinical history correlation requested. IMPRESSION: SUSPECT MILD OSTEOPENIC COMPRESSION OF THE T6 VERTEBRAL BODY.
[2017-06-14 23:49] VITALS: BP 153/91; PULSE 71; RESP 19
== END 2017-06-14 23:48 | disposition home or self-care (01) ==
LOC: EC 18:21
DX: S22.050A Wedge compression fracture of T5-T6 vertebra, initial encounter for closed fracture (principal); M62.830 Muscle spasm of back; R07.81 Pleurodynia; M06.9 Rheumatoid arthritis, unspecified; I10 Essential (primary) hypertension; I45.4 Nonspecific intraventricular block; I50.9 Heart failure, unspecified; F41.9 Anxiety disorder, unspecified; Z87.891 Personal history of nicotine dependence; J45.909 Unspecified asthma, uncomplicated; Z79.52 Long term (current) use of systemic steroids; Z79.82 Long term (current) use of aspirin; Z88.0 Allergy status to penicillin
CPT/HCPCS: 96372; 99284 ×2; 99282; 36415; 93005; 80048; 84484; 85025; 81003; 72129; 71275; Q9967; J2270

== ENCOUNTER 2017-06-21 21:49 | Emergency (ER) | payer MEDICARE ==
[2017-06-21] MEDS ORDERED: MORPHINE SULFATE 10 MG/ML SYRINGE IM STA (23:08)
--- NOTE | 2017-06-21 23:13 | ED ---
General Adult HPI - General Chief complaint: Back Pain/Injury Stated complaint: back pain Time Seen by Provider: 06/21/17 22:30 Source: patient, RN notes reviewed Mode of arrival: ambulatory Limitations: no limitations - History of Present Illness Initial comments: This is a 72-year-old female who comes in stating that she had a T6 compression fracture about a week ago was seen in the emergency department. Patient states she's given Bowen and Flexeril but it hasn't helped. Patient states she has used tramadol and it has worked in the past. Patient states would like a prescription for tramadol as possible. Patient denies any new pain patient with any new injury patient denies any numbness weakness. Patient has no new complaints she just like a prescription for tramadol. Patient is also taking her grandsons baclofen. - Related Data Home Medications Medication Instructions Recorded Confirmed ALPRAZolam [Xanax] 0.25 mg PO TID PRN 03/22/17 06/14/17 Albuterol Nebulized [Ventolin 2.5 mg INHALATION RT-BID 03/22/17 06/14/17 Nebulized] Aspirin EC [Ecotrin Low Dose] 81 mg PO HS 03/22/17 06/14/17 Dexamethasone [Hexadrol] 2 mg PO DAILY 03/22/17 06/14/17 Ergocalciferol [Vitamin D2 50,000 unit PO MO 03/22/17 06/14/17 (DRISDOL)] Fluticasone/Vilanterol [Breo 1 puff INHALATION RT-DAILY 03/22/17 06/14/17 Ellipta 100-25 Mcg Inhaler] Folic Acid 1 mg PO DAILY 03/22/17 06/14/17 Furosemide [Lasix] 20 mg PO HS 03/22/17 06/14/17 Furosemide [Lasix] 40 mg PO DAILY 03/22/17 06/14/17 Lisinopril [Zestril] 5 mg PO BID 03/22/17 06/14/17 Methotrexate Sodium [Methotrexate] 12.5 mg PO MO 03/22/17 06/14/17 Montelukast [Singulair] 10 mg PO DAILY 03/22/17 06/14/17 Nitroglycerin Sl Tabs [Nitrostat] 0.4 mg SUBLINGUAL Q5M PRN 03/22/17 06/14/17 levETIRAcetam [Keppra] 500 mg PO BID 03/22/17 06/14/17 Albuterol Inhaler [Ventolin Hfa 1 - 2 puff INHALATION RT-QID PRN 06/14/17 Inhaler] Esomeprazole Magnesium [NexIUM 20 mg PO BID 06/14/17 06/14/17 24Hr] buPROPion [Wellbutrin] 37.5 mg PO BID 06/14/17 06/14/17 predniSONE 5 mg PO DAILY 06/14/17 06/14/17 traMADol HCL [Ultram] 50 mg PO Q6HR 06/14/17 06/14/17 Previous Rx's Medication Instructions Recorded Cyclobenzaprine [Flexeril] 5 mg PO HS PRN #12 tab 06/14/17 HYDROcodone/APAP 5-325MG [[place] 1 tab PO Q6HR PRN #12 tab 06/14/17 5-325] traMADol HCl [Ultram] 50 mg PO Q6H PRN #20 tab 06/21/17 Allergies Allergy/AdvReac Type Severity Reaction Status Date / Time Penicillins Allergy Rash/Hives Verified 06/21/17 22:40 Review of Systems ROS Statement: Those systems with pertinent positive or pertinent negative responses have been documented in the HPI. ROS Other: All systems not noted in ROS Statement are negative. Past Medical History Past Medical History: Asthma, Heart Failure, Hypertension, Rheumatoid Arthritis (RA) Additional Past Medical History / Comment(s): osteoporosis History of Any Multi-Drug Resistant Organisms: None Reported Past Surgical History: Cholecystectomy, Tonsillectomy Past Anesthesia/Blood Transfusion Reactions: No Reported Reaction Past Psychological History: Anxiety, Depression Smoking Status: Former smoker Past Alcohol Use History: None Reported Past Drug Use History: None Reported - Past Family History Mother Family Medical History: Asthma Additional Family Medical History / Comment(s): depression Father Additional Family Medical History / Comment(s): ETOH General Exam - General Exam Comments Initial Comments: GENERAL Patient is well-developed and well-nourished. Patient is in mild distress. EYES Patient's pupils are equal and round. Extraocular motion is intact SKIN Unremarkable NEURO The patient is alert and oriented 3 PYSCH Patient has normal interpersonal interactions. MUSCULOSKELETAL Patient can move all 4 extremities. Limitations: no limitations Course Vital Signs 06/21/17 22:30 Temperature 99.2 F Pulse Rate 96 Respiratory 22 Rate Blood Pressure 140/64 O2 Sat by Pulse 96 Oximetry Disposition Clinical Impression: Wedge compression fracture of T6 vertebra Disposition: HOME SELF-CARE Instructions: Acute Low Back Pain (ED) Prescriptions: traMADol HCl [Ultram] 50 mg PO Q6H PRN #20 tab PRN Reason: Pain Referrals: Marcia Loomis DO [Primary Care Provider] - 1-2 days Time of Disposition: 23:11
[2017-06-21 23:37] VITALS: BP 140/68; PULSE 80; RESP 18; TEMP 99
== END 2017-06-21 23:36 | disposition home or self-care (01) ==
LOC: EC 21:49
DX: S22.050D Wedge compression fracture of T5-T6 vertebra, subsequent encounter for fracture with routine healing (principal); M06.9 Rheumatoid arthritis, unspecified; F32.9 Major depressive disorder, single episode, unspecified; J45.909 Unspecified asthma, uncomplicated; I11.0 Hypertensive heart disease with heart failure; I50.9 Heart failure, unspecified; Z88.0 Allergy status to penicillin; Z79.82 Long term (current) use of aspirin; Z79.51 Long term (current) use of inhaled steroids; Z79.891 Long term (current) use of opiate analgesic; Z79.52 Long term (current) use of systemic steroids; Z87.891 Personal history of nicotine dependence; Z79.899 Other long term (current) drug therapy
CPT/HCPCS: 99283; 96372; J2270

== ENCOUNTER 2017-07-06 04:21 | Emergency (ER) | payer MEDICARE ==
[2017-07-06 04:29] VITALS: RESP 20
[2017-07-06] MEDS ORDERED: MORPHINE SULFATE 2 MG/ML SYRINGE IVP ONE (04:45)
--- NOTE | 2017-07-06 04:53 | ED ---
Back Pain HPI - General Chief Complaint: Back Pain/Injury Stated Complaint: Back Pain Time Seen by Provider: 07/06/17 04:34 Source: patient, family, RN notes reviewed, old records reviewed Limitations: no limitations - History of Present Illness Initial Comments: This is a 72-year-old female who states that she has some fractures in her back who presents with complains of severe left-sided back pain in the region of her scapula. She denies any new injury she states she was diagnosed with a CAT scan. She states her pain is very severe almost 10/10. Sharp in nature. Additionally she does have a history of congestive heart failure and he has not been taking spironolactone that she has been prescribed. She states the pain is so bad she cannot lay down. She was taking oral [place] 5/325 for last pill was at 3:30 AM without any relief. She states last time. This a low dose of morphine did help. She has any fevers chills sweats she states her hurts to cough. She does use 2 L of oxygen at home and also was diagnosed with sleep apnea. MD Complaint: back pain - Related Data Home Medications Medication Instructions Recorded Confirmed ALPRAZolam [Xanax] 0.25 mg PO TID PRN 03/22/17 06/14/17 Albuterol Nebulized [Ventolin 2.5 mg INHALATION RT-BID 03/22/17 06/14/17 Nebulized] Aspirin EC [Ecotrin Low Dose] 81 mg PO HS 03/22/17 06/14/17 Dexamethasone [Hexadrol] 2 mg PO DAILY 03/22/17 06/14/17 Ergocalciferol [Vitamin D2 50,000 unit PO MO 03/22/17 06/14/17 (DRISDOL)] Fluticasone/Vilanterol [Breo 1 puff INHALATION RT-DAILY 03/22/17 06/14/17 Ellipta 100-25 Mcg Inhaler] Folic Acid 1 mg PO DAILY 03/22/17 06/14/17 Furosemide [Lasix] 20 mg PO HS 03/22/17 06/14/17 Furosemide [Lasix] 40 mg PO DAILY 03/22/17 06/14/17 Lisinopril [Zestril] 5 mg PO BID 03/22/17 06/14/17 Methotrexate Sodium [Methotrexate] 12.5 mg PO MO 03/22/17 06/14/17 Montelukast [Singulair] 10 mg PO DAILY 03/22/17 06/14/17 Nitroglycerin Sl Tabs [Nitrostat] 0.4 mg SUBLINGUAL Q5M PRN 03/22/17 06/14/17 levETIRAcetam [Keppra] 500 mg PO BID 03/22/17 06/14/17 Albuterol Inhaler [Ventolin Hfa 1 - 2 puff INHALATION RT-QID PRN 06/14/17 Inhaler] Esomeprazole Magnesium [NexIUM 20 mg PO BID 06/14/17 06/14/17 24Hr] buPROPion [Wellbutrin] 37.5 mg PO BID 06/14/17 06/14/17 predniSONE 5 mg PO DAILY 06/14/17 06/14/17 traMADol HCL [Ultram] 50 mg PO Q6HR 06/14/17 06/14/17 Previous Rx's Medication Instructions Recorded Cyclobenzaprine [Flexeril] 5 mg PO HS PRN #12 tab 06/14/17 HYDROcodone/APAP 5-325MG [[place] 1 tab PO Q6HR PRN #12 tab 06/14/17 5-325] traMADol HCl [Ultram] 50 mg PO Q6H PRN #20 tab 06/21/17 HYDROcodone/APAP 7.5-325MG [[place] 1 tab PO Q6HR PRN #20 tab 07/06/17 7.5-325] Allergies Allergy/AdvReac Type Severity Reaction Status Date / Time Penicillins Allergy Rash/Hives Verified 07/06/17 04:29 Review of Systems ROS Statement: Those systems with pertinent positive or pertinent negative responses have been documented in the HPI. ROS Other: All systems not noted in ROS Statement are negative. Past Medical History Past Medical History: Asthma, Heart Failure, Hypertension, Rheumatoid Arthritis (RA) Additional Past Medical History / Comment(s): osteoporosis History of Any Multi-Drug Resistant Organisms: None Reported Past Surgical History: Cholecystectomy, Tonsillectomy Past Anesthesia/Blood Transfusion Reactions: No Reported Reaction Past Psychological History: Anxiety, Depression Smoking Status: Former smoker Past Alcohol Use History: None Reported Past Drug Use History: None Reported - Past Family History Mother Family Medical History: Asthma Additional Family Medical History / Comment(s): depression Father Additional Family Medical History / Comment(s): ETOH General Exam - General Exam Comments Initial Comments: Is a well-developed obese female Limitations: no limitations General appearance: alert, anxious, in distress Head exam: Present: atraumatic, normocephalic, normal inspection Eye exam: Present: normal appearance, PERRL, EOMI. Absent: scleral icterus, conjunctival injection, periorbital swelling ENT exam: Present: normal exam, mucous membranes moist Neck exam: Present: normal inspection. Absent: tenderness, meningismus, lymphadenopathy Respiratory exam: Present: normal lung sounds bilaterally, rales (Diffuse rales tenderness palpation over the left posterior chest wall at the level of the left scapula and lateral ribs), chest wall tenderness. Absent: respiratory distress, wheezes, rhonchi, stridor Cardiovascular Exam: Present: regular rate, normal rhythm, normal heart sounds. Absent: systolic murmur, diastolic murmur, rubs, gallop, clicks GI/Abdominal exam: Present: soft, normal bowel sounds. Absent: distended, tenderness, guarding, rebound, rigid Extremities exam: Present: normal inspection, full ROM, normal capillary refill , pedal edema (Pila edema +2 to plus radial to the knees.). Absent: tenderness , joint swelling, calf tenderness Back exam: Present: normal inspection Neurological exam: Present: alert, oriented X3, CN II-XII intact Psychiatric exam: Present: normal affect, normal mood Skin exam: Present: warm, dry, intact, normal color. Absent: rash Course Vital Signs 07/06/17 07/06/17 07/06/17 04:25 05:14 05:20 Temperature 97.6 F Pulse Rate 90 85 62 Respiratory 20 20 Rate Blood Pressure 141/83 141/63 O2 Sat by Pulse 95 97 Oximetry 07/06/17 05:57 Temperature Pulse Rate Respiratory Rate Blood Pressure 144/66 O2 Sat by Pulse Oximetry Medical Decision Making - Medical Decision Making Patient did require a second dose of IV pain medication she is feeling much improved I did a long discussion with her family regarding the findings. She will be discharged she is a keep her follow-up is with her doctors and return if needed. She will be given a slightly stronger dose of pain medication. - Lab Data Result diagrams: 07/06/17 05:03 07/06/17 05:03 Lab Results 07/06/17 07/06/17 07/06/17 Range/Units 05:03 05:03 05:03 WBC 10.9 H (3.8-10.6) k/uL RBC 3.98 (3.80-5.40) m/uL Hgb 12.3 (11.4-16.0) gm/dL Hct 37.4 (34.0-46.0) % MCV 94.0 (80.0-100.0) fL MCH 30.8 (25.0-35.0) pg MCHC 32.8 (31.0-37.0) g/dL RDW 16.1 H (11.5-15.5) % Plt Count 414 (150-450) k/uL Neutrophils % 88 % Lymphocytes % 5 % Monocytes % 5 % Eosinophils % 1 % Basophils % 0 % Neutrophils # 9.6 H (1.3-7.7) k/uL Lymphocytes # 0.6 L (1.0-4.8) k/uL Monocytes # 0.6 (0-1.0) k/uL Eosinophils # 0.1 (0-0.7) k/uL Basophils # 0.0 (0-0.2) k/uL Anisocytosis Slight PT (9.0-12.0) sec INR (<1.2) APTT (22.0-30.0) sec Sodium 130 L (137-145) mmol/L Potassium 4.5 (3.5-5.1) mmol/L Chloride 94 L (98-107) mmol/L Carbon Dioxide 27 (22-30) mmol/L Anion Gap 9 mmol/L BUN 17 (7-17) mg/dL Creatinine 0.70 (0.52-1.04) mg/dL Est GFR (MDRD) Af Amer >60 (>60 ml/min/1.73 sqM) Est GFR (MDRD) Non-Af >60 (>60 ml/min/1.73 sqM) Glucose 124 H (74-99) mg/dL Calcium 8.9 (8.4-10.2) mg/dL Magnesium 2.5 H (1.6-2.3) mg/dL Total Bilirubin 0.7 (0.2-1.3) mg/dL AST 24 (14-36) U/L ALT 45 (9-52) U/L Alkaline Phosphatase 99 (38-126) U/L Total Creatine Kinase 42 (30-135) U/L CK-MB (CK-2) 1.1 (0.0-2.4) ng/mL CK-MB (CK-2) Rel Index 2.6 Troponin I <0.012 (0.000-0.034) ng/mL NT-Pro-B Natriuret Pep pg/mL Total Protein 6.5 (6.3-8.2) g/dL Albumin 3.9 (3.5-5.0) g/dL 07/06/17 07/06/17 Range/Units 05:03 05:03 WBC (3.8-10.6) k/uL RBC (3.80-5.40) m/uL Hgb (11.4-16.0) gm/dL Hct (34.0-46.0) % MCV (80.0-100.0) fL MCH (25.0-35.0) pg MCHC (31.0-37.0) g/dL RDW (11.5-15.5) % Plt Count (150-450) k/uL Neutrophils % % Lymphocytes % % Monocytes % % Eosinophils % % Basophils % % Neutrophils # (1.3-7.7) k/uL Lymphocytes # (1.0-4.8) k/uL Monocytes # (0-1.0) k/uL Eosinophils # (0-0.7) k/uL Basophils # (0-0.2) k/uL Anisocytosis PT 9.9 (9.0-12.0) sec INR 1.0 (<1.2) APTT 20.9 L (22.0-30.0) sec Sodium (137-145) mmol/L Potassium (3.5-5.1) mmol/L Chloride (98-107) mmol/L Carbon Dioxide (22-30) mmol/L Anion Gap mmol/L BUN (7-17) mg/dL Creatinine (0.52-1.04) mg/dL Est GFR (MDRD) Af Amer (>60 ml/min/1.73 sqM) Est GFR (MDRD) Non-Af (>60 ml/min/1.73 sqM) Glucose (74-99) mg/dL Calcium (8.4-10.2) mg/dL Magnesium (1.6-2.3) mg/dL Total Bilirubin (0.2-1.3) mg/dL AST (14-36) U/L ALT (9-52) U/L Alkaline Phosphatase (38-126) U/L Total Creatine Kinase (30-135) U/L CK-MB (CK-2) (0.0-2.4) ng/mL CK-MB (CK-2) Rel Index Troponin I (0.000-0.034) ng/mL NT-Pro-B Natriuret Pep 48 pg/mL Total Protein (6.3-8.2) g/dL Albumin (3.5-5.0) g/dL - EKG Data -: EKG Interpreted by Me EKG shows normal: sinus rhythm (Sinus rhythm rate of 85 AK interval 158 QRS 124 daily since QTC of 360/437block pattern no acute ST-T wave changes.) - Radiology Data Radiology results: report reviewed (I did review the imaging and reports no acute findings are seen at this time. They've very be chronic), image reviewed Disposition Clinical Impression: Thoracic back pain Disposition: HOME SELF-CARE Condition: Good Instructions: Chronic Back Pain (ED) Prescriptions: HYDROcodone/APAP 7.5-325MG [[place] 7.5-325] 1 tab PO Q6HR PRN #20 tab PRN Reason: Pain Referrals: Marcia Loomis DO [Primary Care Provider] - 1-2 days
[2017-07-06] MEDS ORDERED: NITROGLYCERIN OINT 1 INCH/GM PACKET TOPICAL STA (04:54)
[2017-07-06] MEDS ORDERED: IPRATROPIUM-ALBUTEROL 3 ML NEB INHALATION STA (04:54)
[2017-07-06] MEDS ORDERED: FUROSEMIDE 10 MG/ML 4 ML VIAL IV STA (04:54)
[2017-07-06 05:15] LABS: Anisocytosis Slight; Basophils % (A) 0 %; CH 31.8; CHCM 33.9; Eosinophils # (A) 0.1 k/uL (0-0.7); Eosinophils % (A) 1 %; HCT 37.4 % (34.0-46.0); HGB 12.3 gm/dL (11.4-16.0); Luc # (Auto) 0.08; Luc % (Auto) 1; Lymphocytes # (A) 0.6 k/uL (1.0-4.8); Lymphocytes % (A) 5 %; MCH 30.8 pg (25.0-35.0); MCHC 32.8 g/dL (31.0-37.0); Mean Platelet Volume 7.3; Monocytes # (A) 0.6 k/uL (0-1.0); Monocytes % (A) 5 %; Neutrophils # (A) 9.6 k/uL (1.3-7.7); Neutrophils % (A) 88 %; RBC 3.98 m/uL (3.80-5.40); RDW 16.1 % (11.5-15.5); WBC 10.9 k/uL (3.8-10.6); WBC (Perox) 11.39
[2017-07-06 05:28] LABS: ALT 45 U/L (9-52); AST 24 U/L (14-36); Alkaline Phosphatase 99 U/L (38-126); Anion Gap 9 mmol/L; Blood Urea Nitrogen 17 mg/dL (7-17); Calcium 8.9 mg/dL (8.4-10.2); Carbon Dioxide 27 mmol/L (22-30); Chloride 94 mmol/L (98-107); Glucose 124 mg/dL (74-99); Magnesium 2.5 mg/dL (1.6-2.3); Non-African American GFR(MDRD) >60 (>60 ml/min/1.73 sqM); Potassium 4.5 mmol/L (3.5-5.1); Sodium 130 mmol/L (137-145); Total Bilirubin 0.7 mg/dL (0.2-1.3); Total Protein 6.5 g/dL (6.3-8.2)
[2017-07-06 05:30] LABS: Prothrombin Time 9.9 sec (9.0-12.0)
[2017-07-06 05:31] LABS: Partial Thromboplastin Time 20.9 sec (22.0-30.0)
[2017-07-06 05:38] LABS: Creatine Kinase 42 U/L (30-135)
[2017-07-06 05:50] LABS: Creatine Kinase MB 1.1 ng/mL (0.0-2.4); Troponin I <0.012 ng/mL (0.000-0.034)
--- NOTE | 2017-07-06 06:07 | XR ---
EXAM: XR Chest, 2 Views CLINICAL HISTORY: Reason: difficulty breathing TECHNIQUE: Frontal and lateral views of the chest. COMPARISON: Chest radiographs 03/22/2017 FINDINGS: Lungs: Persistent left base opacity not significant changed since 03/22/2017 mild right base subsegmental atelectasis or scarring. Lungs are otherwise clear without acute infiltrates or consolidations. Pleural space: Mild chronic biapical pleural thickening. No evidence of free pleural effusion. No pneumothorax. Heart: Heart size is mildly enlarged. Mediastinum: Mediastinal structures are within normal limits. Bones/joints: Severe mid thoracic vertebral compression fracture which appears mildly sclerotic. This is new since prior examination of 03/22/2017. Vasculature: Thoracic aorta is tortuous and elongated, unchanged. IMPRESSION: Mild cardiomegaly. No evidence of congestive heart failure. Left base opacity, unchanged since 03/22/2017 which may reflect chronic atelectasis or scarring. Mild right base subsegmental atelectasis or fibrotic scarring. Chronic mild biapical pleural thickening. Development of severe mid thoracic vertebral compression fracture which appears mildly sclerotic and is new since 03/22/2017.
[2017-07-06] MEDS ORDERED: MORPHINE SULFATE 4 MG/ML SYRINGE IVP STA (06:08)
[2017-07-06 07:03] VITALS: BP 130/66; PULSE 94; TEMP 98.1
== END 2017-07-06 07:03 | disposition home or self-care (01) ==
LOC: EC 04:21
DX: M54.6 Pain in thoracic spine (principal); J45.909 Unspecified asthma, uncomplicated; I11.0 Hypertensive heart disease with heart failure; I50.9 Heart failure, unspecified; M06.9 Rheumatoid arthritis, unspecified; F32.9 Major depressive disorder, single episode, unspecified; Z88.0 Allergy status to penicillin; Z87.891 Personal history of nicotine dependence; Z79.891 Long term (current) use of opiate analgesic; Z79.82 Long term (current) use of aspirin; Z79.51 Long term (current) use of inhaled steroids; Z79.52 Long term (current) use of systemic steroids; Z79.899 Other long term (current) drug therapy
CPT/HCPCS: 36415; 94640; 93005; 83880; 80053; 82550; 82553; 83735; 84484; 85025; 85610; 85730; 71020; 99284; 96374; 96375; 96376; J2270 ×2; J1940

== ENCOUNTER 2017-07-09 23:22 | Emergency (ER) | payer MEDICARE ==
[2017-07-10] MEDS ORDERED: MORPHINE SULFATE 10 MG/ML SYRINGE IM STA (00:56)
[2017-07-10] MEDS ORDERED: MAGNESIUM CITRATE 296 ML BOTTLE PO ONE (00:57)
--- NOTE | 2017-07-10 01:06 | ED ---
General Adult HPI - General Chief complaint: Abdominal Pain Stated complaint: back pain/constipation Source: patient, family, RN notes reviewed, old records reviewed Mode of arrival: wheelchair Limitations: no limitations - History of Present Illness Initial comments: Chief complaint history of present illness a 72-year-old female here with a complaint of discomfort to her back. The patient's been having back pain for approximately 6 weeks. She is following up with a back surgeon. Patient's taking Sharon which is also causing constipation problems. The patient's only requesting low-dose shot of morphine to get through the night. She will also be placed on mag citrate to be used in the morning. Advised increase fluids, bulky diet, ultimately milk of magnesia with other medications to help her have bowel movements and do sparingly use narcotics which cause her constipation. - Related Data Home Medications Medication Instructions Recorded Confirmed ALPRAZolam [Xanax] 0.25 mg PO TID PRN 03/22/17 06/14/17 Albuterol Nebulized [Ventolin 2.5 mg INHALATION RT-BID 03/22/17 06/14/17 Nebulized] Aspirin EC [Ecotrin Low Dose] 81 mg PO HS 03/22/17 06/14/17 Dexamethasone [Hexadrol] 2 mg PO DAILY 03/22/17 06/14/17 Ergocalciferol [Vitamin D2 50,000 unit PO MO 03/22/17 06/14/17 (DRISDOL)] Fluticasone/Vilanterol [Breo 1 puff INHALATION RT-DAILY 03/22/17 06/14/17 Ellipta 100-25 Mcg Inhaler] Folic Acid 1 mg PO DAILY 03/22/17 06/14/17 Furosemide [Lasix] 20 mg PO HS 03/22/17 06/14/17 Furosemide [Lasix] 40 mg PO DAILY 03/22/17 06/14/17 Lisinopril [Zestril] 5 mg PO BID 03/22/17 06/14/17 Methotrexate Sodium [Methotrexate] 12.5 mg PO MO 03/22/17 06/14/17 Montelukast [Singulair] 10 mg PO DAILY 03/22/17 06/14/17 Nitroglycerin Sl Tabs [Nitrostat] 0.4 mg SUBLINGUAL Q5M PRN 03/22/17 06/14/17 levETIRAcetam [Keppra] 500 mg PO BID 03/22/17 06/14/17 Albuterol Inhaler [Ventolin Hfa 1 - 2 puff INHALATION RT-QID PRN 06/14/17 Inhaler] Esomeprazole Magnesium [NexIUM 20 mg PO BID 06/14/17 06/14/17 24Hr] buPROPion [Wellbutrin] 37.5 mg PO BID 06/14/17 06/14/17 predniSONE 5 mg PO DAILY 06/14/17 06/14/17 traMADol HCL [Ultram] 50 mg PO Q6HR 06/14/17 06/14/17 Previous Rx's Medication Instructions Recorded Cyclobenzaprine [Flexeril] 5 mg PO HS PRN #12 tab 06/14/17 HYDROcodone/APAP 5-325MG [[place] 1 tab PO Q6HR PRN #12 tab 06/14/17 5-325] traMADol HCl [Ultram] 50 mg PO Q6H PRN #20 tab 06/21/17 HYDROcodone/APAP 7.5-325MG [[place] 1 tab PO Q6HR PRN #20 tab 07/06/17 7.5-325] Docusate [Colace] 100 mg PO DAILY #14 capsule 07/10/17 Allergies Allergy/AdvReac Type Severity Reaction Status Date / Time Penicillins Allergy Rash/Hives Verified 07/09/17 23:34 Review of Systems ROS Statement: Those systems with pertinent positive or pertinent negative responses have been documented in the HPI. review of systems no other complaints other than back pain. This been ongoing for 6 weeks. Following up with the family physician and back specialist. Plans are in place as to help her get stronger. Her complaint now is constipation all systems reviewed. Past medical problems significant forAsthma, CHF, hypertension, rheumatoid arthritis and osteoporosis. Surgeries include gallbladder and tonsils. Family history noncontributory she has ALLERGIES to penicillin. Patient's former smoker no alcohol use. ROS Other: All systems not noted in ROS Statement are negative. Past Medical History Past Medical History: Asthma, Heart Failure, Hypertension, Rheumatoid Arthritis (RA) Additional Past Medical History / Comment(s): osteoporosis History of Any Multi-Drug Resistant Organisms: None Reported Past Surgical History: Cholecystectomy, Tonsillectomy Past Anesthesia/Blood Transfusion Reactions: No Reported Reaction Past Psychological History: Anxiety, Depression Smoking Status: Former smoker Past Alcohol Use History: None Reported Past Drug Use History: None Reported - Past Family History Mother Family Medical History: Asthma Additional Family Medical History / Comment(s): depression Father Additional Family Medical History / Comment(s): ETOH General Exam - General Exam Comments Initial Comments: General: The patient is awake and alert, complaining of persistent low back pain. Vital signs temperature 97.0 pulse 89 respiratory rate 18 pulse ox 94% room air blood pressure 121/58 Eye: Pupils are equal, , extra-ocular movements are intact; there is normal conjunctiva bilaterally. Ears, nose, mouth and throat: ears feel full. Cerumen blocks visualization of TMs. Daughter will provide Claritin or Joan for congestion.. Neck: no complaint of neck pain. Cardiovascular: no complaints of chest pain or palpitations. Respiratory: no complaint of shortness of breath. Gastrointestinal: chronic constipation problems associated with taking pain medication for backache. Back: backache for 6 weeks. Being followed by family physician as well as back specialist. No new changes no new injuries. Neurological: no complaint with urinating. She does have constipation problems because of Sharon. She'll be advised as to how to help correct this. Limitations: no limitations Course Vital Signs 07/09/17 23:29 Temperature 97.0 F L Pulse Rate 89 Respiratory 18 Rate Blood Pressure 121/58 O2 Sat by Pulse 94 L Oximetry Medical Decision Making - Medical Decision Making patient received a shot of morphine in emergency room. This at her request. Advised to increase her fluids and bulky diet. She'll be given instructions to use milk of magnesia one half bottle in the morning if no bowel movement that she take the second half of the bottle in the afternoon. She is to follow-up with family physician. Disposition Clinical Impression: Back pain due to injury, Constipation due to opioid therapy Disposition: HOME SELF-CARE Condition: Stable Instructions: Constipation (ED), High Fiber Diet (ED) Additional Instructions: Stay well-hydrated. Use Colace. Use pain medication sparingly. Use magnesium citrate as directed. Follow-up with your family physician and your back specialist. Prescriptions: Docusate [Colace] 100 mg PO DAILY #14 capsule Referrals: Marcia Loomis DO [Primary Care Provider] - 1-2 days Time of Disposition: 01:06
[2017-07-10 01:54] VITALS: BP 123/63; PULSE 75; RESP 20; TEMP 98.1
== END 2017-07-10 01:53 | disposition home or self-care (01) ==
LOC: EC 23:22
DX: S39.92XA Unspecified injury of lower back, initial encounter (principal); R10.9 Unspecified abdominal pain; M54.9 Dorsalgia, unspecified; K59.03 Drug induced constipation; T40.2X5A Adverse effect of other opioids, initial encounter; J45.909 Unspecified asthma, uncomplicated; I50.9 Heart failure, unspecified; I10 Essential (primary) hypertension; M06.9 Rheumatoid arthritis, unspecified; M81.0 Age-related osteoporosis without current pathological fracture; F41.9 Anxiety disorder, unspecified; F32.9 Major depressive disorder, single episode, unspecified; Z87.891 Personal history of nicotine dependence; Z79.82 Long term (current) use of aspirin; Z79.899 Other long term (current) drug therapy; Z79.891 Long term (current) use of opiate analgesic; Z79.52 Long term (current) use of systemic steroids; Z88.0 Allergy status to penicillin; Z90.49 Acquired absence of other specified parts of digestive tract; X58.XXXA Exposure to other specified factors, initial encounter
CPT/HCPCS: 99284; 96372; J2270

== ENCOUNTER 2017-07-15 16:19 | Emergency (ER) | payer MEDICARE ==
[2017-07-15 16:25] VITALS: RESP 20
[2017-07-15] MEDS ORDERED: SODIUM CHLORIDE 0.9% 1,000 ML IV STA (17:22)
--- NOTE | 2017-07-15 17:40 | ED ---
Lower Extremity Injury HPI - General Chief Complaint: Extremity Injury, Lower Stated Complaint: Leg Pain Time Seen by Provider: 07/15/17 17:09 Source: patient, RN notes reviewed, old records reviewed Mode of arrival: wheelchair Limitations: no limitations - History of Present Illness Initial Comments: His is a 72-year-old female presenting to emergency Department chief complaint of bruising, swelling and weeping from her right lower leg. Patient reports that last Saturday she was getting a bone scan and her lower leg hit the edge of the wheelchair causing severe bruising. She went to see her primary care physician and the PA there is noticed severe bruising and swelling. At that time the bruise was drained. Patient reports that there is been continued swelling and weeping from the lower leg. She does have a history of heart failure. She reports that she's had some chills but denies any specific fever. She reports that she's not been on any antibiotics. She reports that she felt that she needed to be seen by a physician for a second opinion. Patient states that she has a history of a broken back and compression fracture, heart failure, CAD, diabetes. She reports that she does take Lasix and has been taking them as directed. She reports that she has been having intermittent chest pains over the past 2 days. She reports that she's been taking nitro for relief. She states that they occur mostly at night, she reports that she is consistently short of breath. - Related Data Home Medications Medication Instructions Recorded Confirmed ALPRAZolam [Xanax] 0.25 mg PO TID PRN 03/22/17 07/15/17 Albuterol Nebulized [Ventolin 2.5 mg INHALATION RT-BID 03/22/17 07/15/17 Nebulized] Aspirin EC [Ecotrin Low Dose] 81 mg PO HS 03/22/17 07/15/17 Dexamethasone [Hexadrol] 2 mg PO DAILY 03/22/17 07/15/17 Ergocalciferol [Vitamin D2 50,000 unit PO MO 03/22/17 07/15/17 (DRISDOL)] Fluticasone/Vilanterol [Breo 1 puff INHALATION RT-DAILY 03/22/17 07/15/17 Ellipta 100-25 Mcg Inhaler] Furosemide [Lasix] 20 mg PO DAILY@1200 03/22/17 07/15/17 Furosemide [Lasix] 40 mg PO DAILY 03/22/17 07/15/17 Lisinopril [Zestril] 2.5 mg PO BID 03/22/17 07/15/17 Methotrexate Sodium [Methotrexate] 12.5 mg PO MO 03/22/17 07/15/17 Montelukast [Singulair] 10 mg PO DAILY 03/22/17 07/15/17 Nitroglycerin Sl Tabs [Nitrostat] 0.4 mg SUBLINGUAL Q5M PRN 03/22/17 07/15/17 levETIRAcetam [Keppra] 500 mg PO BID 03/22/17 07/15/17 Albuterol Inhaler [Ventolin Hfa 1 - 2 puff INHALATION RT-QID PRN 06/14/17 Inhaler] Esomeprazole Magnesium [NexIUM 20 mg PO BID 06/14/17 07/15/17 24Hr] buPROPion [Wellbutrin] 37.5 mg PO BID 06/14/17 07/15/17 predniSONE 5 mg PO DAILY 06/14/17 07/15/17 Baclofen [Lioresal] 5 mg PO HS PRN 07/15/17 07/15/17 OXcarbazepine [Trileptal] 150 mg PO QAM 07/15/17 07/15/17 Spironolactone [Aldactone] 12.5 mg PO DAILY 07/15/17 07/15/17 Teriparatide [Forteo] 20 mcg SQ DAILY 07/15/17 07/15/17 busPIRone HCl [Buspar] 10 mg PO BID 07/15/17 07/15/17 Previous Rx's Medication Instructions Recorded HYDROcodone/APAP 5-325MG [[place] 1 tab PO Q6HR PRN #12 tab 06/14/17 5-325] Furosemide [Lasix] 60 mg PO DAILY #30 tab 07/15/17 Allergies Allergy/AdvReac Type Severity Reaction Status Date / Time Penicillins Allergy Rash/Hives Verified 07/15/17 19:04 Review of Systems ROS Statement: Those systems with pertinent positive or pertinent negative responses have been documented in the HPI. ROS Other: All systems not noted in ROS Statement are negative. Past Medical History Past Medical History: Asthma, Heart Failure, Hypertension, Rheumatoid Arthritis (RA) Additional Past Medical History / Comment(s): osteoporosis History of Any Multi-Drug Resistant Organisms: None Reported Past Surgical History: Cholecystectomy, Tonsillectomy Past Anesthesia/Blood Transfusion Reactions: No Reported Reaction Past Psychological History: Anxiety, Depression Smoking Status: Former smoker Past Alcohol Use History: None Reported Past Drug Use History: None Reported - Past Family History Mother Family Medical History: Asthma Additional Family Medical History / Comment(s): depression Father Additional Family Medical History / Comment(s): ETOH General Exam - General Exam Comments Initial Comments: This is a 72-year-old female. Patient is morbidly obese. Patient does not appear to be in any significant distress. Limitations: no limitations General appearance: alert, in no apparent distress Head exam: Present: atraumatic, normocephalic, normal inspection Eye exam: Present: normal appearance, PERRL, EOMI. Absent: scleral icterus, conjunctival injection, periorbital swelling ENT exam: Present: normal exam, mucous membranes moist Neck exam: Present: normal inspection. Absent: tenderness, meningismus, lymphadenopathy Respiratory exam: Present: normal lung sounds bilaterally. Absent: respiratory distress, wheezes, rales, rhonchi, stridor Cardiovascular Exam: Present: regular rate, normal rhythm, normal heart sounds. Absent: systolic murmur, diastolic murmur, rubs, gallop, clicks GI/Abdominal exam: Present: soft, normal bowel sounds. Absent: distended, tenderness, guarding, rebound, rigid Extremities exam: Present: normal inspection, full ROM, normal capillary refill , pedal edema (Bilateral pedal edema. Patient has right side of 4+ pedal edema. ), other (Patient has significant ecchymosis over the right lower cyr. Right lower leg is weeping, the bedsheet is soaked from her sitting there for approximately 20 minutes. dorsalis pedis pulse obtained, posterior tibial pulse 2+). Absent: tenderness, joint swelling, calf tenderness Back exam: Present: normal inspection Neurological exam: Present: alert, oriented X3, CN II-XII intact Psychiatric exam: Present: normal affect, normal mood Skin exam: Present: warm, dry, intact, normal color. Absent: rash Course Vital Signs 07/15/17 07/15/17 07/15/17 16:20 19:41 20:00 Temperature 98.5 F 98.3 F Pulse Rate 94 64 Respiratory 20 Rate Blood Pressure 130/71 132/66 O2 Sat by Pulse 91 L 94 L Oximetry Medical Decision Making - Medical Decision Making His is a 72-year-old female presenting to emergency Department chief complaint of bruising, swelling and weeping from her right lower leg. Patient reports that last Saturday she was getting a bone scan and her lower leg hit the edge of the wheelchair causing severe bruising.She reports that she has been having intermittent chest pains over the past 2 days. She reports that she's been taking nitro for relief. She states that they occur mostly at night, she reports that she is consistently short of breath. Patient EKG was within normal limits, patient had negative troponin. Given length of symptoms, if there was a concern for cardiac related chest pain, patient troponin would be elevated. Patient BNP was within normal limits. CXR shows slightly increased atelectasis. Patient tib fib xray was also showing no sign of fracture. Patient does have significant edema in right lower leg, and she did soak the lower sheet. Patient lab work reviewed, and within normal limits. I am not concerned for infection or cellulitis related to the leg edema. Patient case discussed with Dr. Silva. Dr. Silva had a length discussion with the patient that she has dependant edema, and needs to elevate her legs and decrease salt in her diet. Patient has been advised to increase her lasix, and a presciption was written for her. Patient advised close follow up with PCP , return parameters discusesd. - Lab Data Result diagrams: 07/15/17 17:49 07/15/17 17:49 Lab Results 07/15/17 07/15/17 07/15/17 Range/Units 17:49 17:49 17:49 WBC 8.3 (3.8-10.6) k/uL RBC 3.86 (3.80-5.40) m/uL Hgb 12.2 (11.4-16.0) gm/dL Hct 36.7 (34.0-46.0) % MCV 94.9 (80.0-100.0) fL MCH 31.5 (25.0-35.0) pg MCHC 33.2 (31.0-37.0) g/dL RDW 16.2 H (11.5-15.5) % Plt Count 409 (150-450) k/uL Neutrophils % 89 % Lymphocytes % 6 % Monocytes % 4 % Eosinophils % 1 % Basophils % 0 % Neutrophils # 7.4 (1.3-7.7) k/uL Lymphocytes # 0.5 L (1.0-4.8) k/uL Monocytes # 0.3 (0-1.0) k/uL Eosinophils # 0.1 (0-0.7) k/uL Basophils # 0.0 (0-0.2) k/uL Anisocytosis Slight Sodium 135 L (137-145) mmol/L Potassium 3.9 (3.5-5.1) mmol/L Chloride 96 L (98-107) mmol/L Carbon Dioxide 31 H (22-30) mmol/L Anion Gap 8 mmol/L BUN 16 (7-17) mg/dL Creatinine 0.84 (0.52-1.04) mg/dL Est GFR (MDRD) Af Amer >60 (>60 ml/min/1.73 sqM) Est GFR (MDRD) Non-Af >60 (>60 ml/min/1.73 sqM) Glucose 141 H (74-99) mg/dL Calcium 8.7 (8.4-10.2) mg/dL Total Bilirubin 0.4 (0.2-1.3) mg/dL AST 21 (14-36) U/L ALT 37 (9-52) U/L Alkaline Phosphatase 97 (38-126) U/L Troponin I (0.000-0.034) ng/mL NT-Pro-B Natriuret Pep 57 pg/mL Total Protein 6.1 L (6.3-8.2) g/dL Albumin 3.6 (3.5-5.0) g/dL 07/15/17 Range/Units 17:49 WBC (3.8-10.6) k/uL RBC (3.80-5.40) m/uL Hgb (11.4-16.0) gm/dL Hct (34.0-46.0) % MCV (80.0-100.0) fL MCH (25.0-35.0) pg MCHC (31.0-37.0) g/dL RDW (11.5-15.5) % Plt Count (150-450) k/uL Neutrophils % % Lymphocytes % % Monocytes % % Eosinophils % % Basophils % % Neutrophils # (1.3-7.7) k/uL Lymphocytes # (1.0-4.8) k/uL Monocytes # (0-1.0) k/uL Eosinophils # (0-0.7) k/uL Basophils # (0-0.2) k/uL Anisocytosis Sodium (137-145) mmol/L Potassium (3.5-5.1) mmol/L Chloride (98-107) mmol/L Carbon Dioxide (22-30) mmol/L Anion Gap mmol/L BUN (7-17) mg/dL Creatinine (0.52-1.04) mg/dL Est GFR (MDRD) Af Amer (>60 ml/min/1.73 sqM) Est GFR (MDRD) Non-Af (>60 ml/min/1.73 sqM) Glucose (74-99) mg/dL Calcium (8.4-10.2) mg/dL Total Bilirubin (0.2-1.3) mg/dL AST (14-36) U/L ALT (9-52) U/L Alkaline Phosphatase (38-126) U/L Troponin I <0.012 (0.000-0.034) ng/mL NT-Pro-B Natriuret Pep pg/mL Total Protein (6.3-8.2) g/dL Albumin (3.5-5.0) g/dL 07/15/17 17:51 EKG shows sinus rhythm with PACs. Nonspecific intraventricular block. T-wave abnormality, considering inferior ischemia. Ventricular rate 90 bpm. SD interval 164 ms. QRS duration 134 ms. QT QTC 370/[address] elevation. - Radiology Data Radiology results: report reviewed CXR is increasing patchy infiltrates. Leg x-ray shows no fractures. Evidence of subcu edema. Disposition Clinical Impression: Leg edema, right, Traumatic ecchymosis of right lower leg Disposition: HOME SELF-CARE Condition: Good Instructions: Leg Edema (ED) Additional Instructions: Patient needs to increase Lasix to 60 mg in the morning and 40 mg at the evening , patient is to take it at 4 PM. Continue to take her spironolactone, take it 2 hours after you take final dose of lasix. Follow-up with her primary care physician within next 2-3 days. Keep the are leg elevated. Change the dressing whenever it is soaked. Return to the emergency department if any alarming signs or symptoms occur. Prescriptions: Furosemide [Lasix] 60 mg PO DAILY #30 tab Referrals: Marcia Loomis DO [Primary Care Provider] - 1-2 days Time of Disposition: 19:22
[2017-07-15] MEDS ORDERED: MORPHINE SULFATE 4 MG/ML SYRINGE IVP STA ×2 (17:49→19:11)
[2017-07-15 18:07] LABS: Anisocytosis Slight; Basophils % (A) 0 %; CH 32.1; CHCM 33.9; Eosinophils # (A) 0.1 k/uL (0-0.7); Eosinophils % (A) 1 %; HCT 36.7 % (34.0-46.0); HGB 12.2 gm/dL (11.4-16.0); Luc # (Auto) 0.05; Luc % (Auto) 1; Lymphocytes # (A) 0.5 k/uL (1.0-4.8); Lymphocytes % (A) 6 %; MCH 31.5 pg (25.0-35.0); MCHC 33.2 g/dL (31.0-37.0); MCV 94.9 fL (80.0-100.0); Mean Platelet Volume 6.8; Monocytes # (A) 0.3 k/uL (0-1.0); Monocytes % (A) 4 %; Neutrophils # (A) 7.4 k/uL (1.3-7.7); Neutrophils % (A) 89 %; RBC 3.86 m/uL (3.80-5.40); RDW 16.2 % (11.5-15.5); WBC 8.3 k/uL (3.8-10.6); WBC (Perox) 8.24
[2017-07-15 18:14] LABS: ALT 37 U/L (9-52); AST 21 U/L (14-36); Alkaline Phosphatase 97 U/L (38-126); Anion Gap 8 mmol/L; Blood Urea Nitrogen 16 mg/dL (7-17); Calcium 8.7 mg/dL (8.4-10.2); Carbon Dioxide 31 mmol/L (22-30); Chloride 96 mmol/L (98-107); Glucose 141 mg/dL (74-99); Non-African American GFR(MDRD) >60 (>60 ml/min/1.73 sqM); Potassium 3.9 mmol/L (3.5-5.1); Sodium 135 mmol/L (137-145); Total Bilirubin 0.4 mg/dL (0.2-1.3); Total Protein 6.1 g/dL (6.3-8.2)
--- NOTE | 2017-07-15 19:01 | XR ---
EXAMINATION TYPE: XR chest 2V DATE OF EXAM: 07/15/2017 COMPARISON: 07/06/2017 HISTORY: Short of breath TECHNIQUE: Frontal and lateral views of the chest are obtained. FINDINGS: There is patchy linear density in the mid and lower lung nolan. There is no heart failure . There is no pleural effusion. Bony thorax is intact. IMPRESSION: There is increasing bilateral patchy atelectasis compared to last exam. No gross heart f ailure.
--- NOTE | 2017-07-15 19:02 | XR ---
EXAMINATION TYPE: XR tibia fibula RT DATE OF EXAM: 07/15/2017 COMPARISON: NONE HISTORY: Bruising and swelling TECHNIQUE: 3 views FINDINGS: There is subcutaneous edema around the lower leg. I see no fracture nor dislocation. There is osteoarthritis in the knee joint with lateral joint space narrowing. IMPRESSION: Subcutaneous edema. No fracture seen.
[2017-07-15 19:42] VITALS: BP 132/66; PULSE 64
[2017-07-15 21:13] VITALS: TEMP 98.3
== END 2017-07-15 20:00 | disposition home or self-care (01) ==
LOC: EC 16:19
DX: S80.11XA Contusion of right lower leg, initial encounter (principal); R60.0 Localized edema; J45.909 Unspecified asthma, uncomplicated; F41.9 Anxiety disorder, unspecified; I11.0 Hypertensive heart disease with heart failure; F32.9 Major depressive disorder, single episode, unspecified; I50.9 Heart failure, unspecified; M06.9 Rheumatoid arthritis, unspecified; M81.0 Age-related osteoporosis without current pathological fracture; Z87.891 Personal history of nicotine dependence; Z79.51 Long term (current) use of inhaled steroids; Z79.82 Long term (current) use of aspirin; Z79.899 Other long term (current) drug therapy; Z88.0 Allergy status to penicillin; W20.8XXA Other cause of strike by thrown, projected or falling object, initial encounter
CPT/HCPCS: 36415; 93005; 83880; 80053; 84484; 85025; 87040; 71020; 73590; 99284; 96374; 96361 ×2; J2270

== ENCOUNTER 2017-07-29 19:18 | Emergency (ER) | payer MEDICARE ==
--- NOTE | 2017-07-29 20:25 | ED ---
General Adult HPI - General Chief complaint: Extremity Injury, Lower Stated complaint: Med Refill-back Pain Time Seen by Provider: 07/29/17 19:37 Source: patient Mode of arrival: wheelchair Limitations: no limitations - History of Present Illness Initial comments: Patient is a 72-year-old female who presents with a chief complaint of left lower extremity swelling and erythema. I have later with this patient has a saw her on June 14 where she was found to have compression fracture of her lumbar spine. Patient was prescribed [place] at that time, and has since followed up with primary care who put her on a pain contract, she subsequently got a narcotic prescription filled from a repeat visit to the emergency department. In triage she states that she is here because her primary care will not fill her [place] and she needs a prescription for [place]. Her left lower extremity has become erythematous over the last day. Patient and her daughter stated that the swelling has not gotten worse. There is nothing aggravating or alleviating. Patient does not have significant tenderness to palpation. MD Complaint: [place] prescription, leg swelling Onset/Timin -: days(s) Location: left, lower extremity Radiation: non-radiation Consistency: constant Improves with: none Worsens with: none Associated Symptoms: denies other symptoms - Related Data Home Medications Medication Instructions Recorded Confirmed ALPRAZolam [Xanax] 0.25 mg PO TID PRN 03/22/17 07/15/17 Albuterol Nebulized [Ventolin 2.5 mg INHALATION RT-BID 03/22/17 07/15/17 Nebulized] Aspirin EC [Ecotrin Low Dose] 81 mg PO HS 03/22/17 07/15/17 Dexamethasone [Hexadrol] 2 mg PO DAILY 03/22/17 07/15/17 Ergocalciferol [Vitamin D2 50,000 unit PO MO 03/22/17 07/15/17 (DRISDOL)] Fluticasone/Vilanterol [Breo 1 puff INHALATION RT-DAILY 03/22/17 07/15/17 Ellipta 100-25 Mcg Inhaler] Furosemide [Lasix] 20 mg PO DAILY@1200 03/22/17 07/15/17 Furosemide [Lasix] 40 mg PO DAILY 03/22/17 07/15/17 Lisinopril [Zestril] 2.5 mg PO BID 03/22/17 07/15/17 Methotrexate Sodium [Methotrexate] 12.5 mg PO MO 03/22/17 07/15/17 Montelukast [Singulair] 10 mg PO DAILY 03/22/17 07/15/17 Nitroglycerin Sl Tabs [Nitrostat] 0.4 mg SUBLINGUAL Q5M PRN 03/22/17 07/15/17 levETIRAcetam [Keppra] 500 mg PO BID 03/22/17 07/15/17 Albuterol Inhaler [Ventolin Hfa 1 - 2 puff INHALATION RT-QID PRN 06/14/17 Inhaler] Esomeprazole Magnesium [NexIUM 20 mg PO BID 06/14/17 07/15/17 24Hr] buPROPion [Wellbutrin] 37.5 mg PO BID 06/14/17 07/15/17 predniSONE 5 mg PO DAILY 06/14/17 07/15/17 Baclofen [Lioresal] 5 mg PO HS PRN 07/15/17 07/15/17 OXcarbazepine [Trileptal] 150 mg PO QAM 07/15/17 07/15/17 Spironolactone [Aldactone] 12.5 mg PO DAILY 07/15/17 07/15/17 Teriparatide [Forteo] 20 mcg SQ DAILY 07/15/17 07/15/17 busPIRone HCl [Buspar] 10 mg PO BID 07/15/17 07/15/17 Previous Rx's Medication Instructions Recorded HYDROcodone/APAP 5-325MG [[place] 1 tab PO Q6HR PRN #12 tab 06/14/17 5-325] Furosemide [Lasix] 60 mg PO DAILY #30 tab 07/15/17 Lidocaine 5% Patch [Lidoderm 5% 1 patch TOPICAL DAILY PRN #30 patch 07/29/17 Patch] Sulfamethox-Tmp 800-160Mg [Bactrim 1 tab PO Q12HR #14 tab 07/29/17 DS 800-160 mg] Allergies Allergy/AdvReac Type Severity Reaction Status Date / Time Penicillins Allergy Rash/Hives Verified 07/29/17 19:27 Review of Systems ROS Statement: Those systems with pertinent positive or pertinent negative responses have been documented in the HPI. ROS Other: All systems not noted in ROS Statement are negative. Constitutional: Denies: fever Eyes: Denies: vision change ENT: Denies: ear pain, throat pain Respiratory: Denies: cough, dyspnea Cardiovascular: Denies: chest pain, orthopnea Endocrine: Denies: fatigue Gastrointestinal: Denies: abdominal pain, nausea, vomiting Genitourinary: Denies: dysuria Musculoskeletal: Reports: back pain Skin: Reports: change in color Neurological: Denies: headache Psychiatric: Reports: anxiety Past Medical History Past Medical History: Asthma, Heart Failure, Hypertension, Rheumatoid Arthritis (RA) Additional Past Medical History / Comment(s): osteoporosis History of Any Multi-Drug Resistant Organisms: None Reported Past Surgical History: Cholecystectomy, Tonsillectomy Past Anesthesia/Blood Transfusion Reactions: No Reported Reaction Past Psychological History: Anxiety, Depression Smoking Status: Former smoker Past Alcohol Use History: None Reported Past Drug Use History: None Reported - Past Family History Mother Family Medical History: Asthma Additional Family Medical History / Comment(s): depression Father Additional Family Medical History / Comment(s): ETOH General Exam Limitations: no limitations General appearance: alert, in no apparent distress Head exam: Present: atraumatic, normocephalic Eye exam: Present: normal appearance ENT exam: Present: normal exam, normal oropharynx, mucous membranes moist Neck exam: Present: normal inspection Respiratory exam: Present: normal lung sounds bilaterally. Absent: respiratory distress, wheezes, rales, rhonchi Cardiovascular Exam: Present: regular rate, normal rhythm, normal heart sounds GI/Abdominal exam: Present: soft. Absent: distended, tenderness Rectal exam: Present: deferred Extremities exam: Present: pedal edema (Patient has persistent lower extremity edema that is pitting in nature. She has erythema on the anterior aspect of her left lower extremity. The erythematous area is warm. She does not have tenderness to palpation. There is an ecchymotic area on the lateral aspect of the left lower extremity that the patient states is secondary to bumping her leg on a wheelchair. Patient has 2+ DP and PT pulses bilateral legs.) Back exam: Present: tenderness (Patient has tenderness from previously diagnosed compression fracture.) Neurological exam: Present: alert, oriented X3 Psychiatric exam: Present: agitated, anxious, other (Patient is very anxious and tearful on exam. She became very angry when I told her I would not refill her [place] prescription today.) Skin exam: Present: warm, dry, intact, other (Please refer to skin description under extremity exam.) Course Vital Signs 07/29/17 19:22 Temperature 97.6 F Pulse Rate 106 H Respiratory 20 Rate Blood Pressure 149/75 O2 Sat by Pulse 97 Oximetry Medical Decision Making - Medical Decision Making Patient presents with chief complaint of left lower extremity edema and cellulitis, and is requesting a refill of her [place] prescription. Cellulitic area is over the anterior lower extremity, between the ankle and the knee. Patient is a good candidate for outpatient antibiotics. Swelling is not significantly different, patient is not short of breath nor does she have any calf tenderness. Patient became very upset and tearful I told her I would not refill her [place] prescription. I saw this patient on June 14 when she was diagnosed with a compression fracture of her back, she was prescribed 12 [place] at that time. She later signed a contract with her primary care doctor and subsequently filled a prescription for [place] from an outside provider. He is contract was terminated and she no longer has a contact to get her [place] prescription. I discussed with the patient why I would not refill her prescription today and offered other options including her already prescribed Ultram, and lidocaine patches. I splinted the patient that her injury should be getting better at this point, she may need to refer to her primary care physician for possible physical therapy. Patient is stable for discharge and follow-up primary care Disposition Clinical Impression: Chronic back pain, Drug-seeking behavior, Cellulitis Disposition: HOME SELF-CARE Condition: Good Instructions: Cellulitis (ED) Prescriptions: Lidocaine 5% Patch [Lidoderm 5% Patch] 1 patch TOPICAL DAILY PRN #30 patch PRN Reason: Pain Sulfamethox-Tmp 800-160Mg [Bactrim DS 800-160 mg] 1 tab PO Q12HR #14 tab Referrals: Marcia Loomis DO [Primary Care Provider] - 1-2 days
[2017-07-29] MEDS ORDERED: KETOROLAC 30 MG/ML 1 ML VIAL IM STA (20:30)
[2017-07-29] MEDS ORDERED: SULFAMETHOX-TMP 800-160MG 1 EACH TAB PO STA (21:04)
[2017-07-29 21:16] VITALS: BP 128/68; PULSE 64; RESP 16; TEMP 98
== END 2017-07-29 21:15 | disposition home or self-care (01) ==
LOC: EC 19:18
DX: L03.116 Cellulitis of left lower limb (principal); Z76.5 Malingerer [conscious simulation]; M54.9 Dorsalgia, unspecified; G89.29 Other chronic pain; J45.909 Unspecified asthma, uncomplicated; I11.0 Hypertensive heart disease with heart failure; I50.9 Heart failure, unspecified; M06.9 Rheumatoid arthritis, unspecified; F32.9 Major depressive disorder, single episode, unspecified; F41.9 Anxiety disorder, unspecified; Z87.891 Personal history of nicotine dependence; Z79.51 Long term (current) use of inhaled steroids; Z79.52 Long term (current) use of systemic steroids; Z79.82 Long term (current) use of aspirin; Z79.899 Other long term (current) drug therapy; Z88.0 Allergy status to penicillin
CPT/HCPCS: 99283; 96372; J1885

== ENCOUNTER 2017-08-02 17:34 | Emergency (ER) | payer MEDICARE, OTHER ==
[2017-08-02 18:07] VITALS: TEMP 97.9
--- NOTE | 2017-08-02 19:54 | ED ---
Extremity Problem HPI - General Chief complaint: Extremity Problem,Nontraumatic Stated complaint: LEG SWELLING, Hx CELLULITIS Time Seen by Provider: 08/02/17 18:52 Source: patient Mode of arrival: wheelchair Limitations: no limitations - History of Present Illness Initial comments: 72-year-old female patient presents to emergency department today for evaluation of left lower extremity cellulitis and right lower leg wound. Patient states that she was seen here a few days ago and was diagnosed with cellulitis to her lower extremities. She was given a prescription for Bactrim however states when she takes that she becomes very nauseated. She states that she was in to see her pleater hand today who did evaluate her legs and switched her prescription to Keflex. Patient states that he recommended she is still be seen by the ER or her primary care physician as this is not has specialty. Patient was concerned that the wound to her right lower leg was becoming worse and would like to have this evaluated as well. Patient states that her right lower leg does have some significant weeping, however denies any purulent drainage. Patient states that the wound has been being cared for by her home visiting nurse who changes the dressing and applies Neosporin. Patient states that she initially got the wound after she hit her leg on a wheelchair, developed a bruise, and had her hematoma drained by the PA at her primary care physician's office. Patient states that the area became infected after this. Patient denies any recent fever, chills, chest pain, abdominal pain, nausea, vomiting, diarrhea, back pain, numbness, tingling, weakness, hematuria, headache , visual changes, or any other complaints. She states that she has had back pain related to a fracture diagnosed here on 06/14/2017. States that she has been taking Banco for this which does help. - Related Data Home Medications Medication Instructions Recorded Confirmed Albuterol Nebulized [Ventolin 2.5 mg INHALATION RT-DAILY 03/22/17 08/02/17 Nebulized] Aspirin EC [Ecotrin Low Dose] 81 mg PO HS 03/22/17 08/02/17 Dexamethasone [Hexadrol] 2 mg PO DAILY 03/22/17 08/02/17 Ergocalciferol [Vitamin D2 50,000 unit PO MO 03/22/17 08/02/17 (DRISDOL)] Fluticasone/Vilanterol [Breo 1 puff INHALATION RT-DAILY 03/22/17 08/02/17 Ellipta 100-25 Mcg Inhaler] Furosemide [Lasix] 40 mg PO DAILY@1600 03/22/17 08/02/17 Lisinopril [Zestril] 2.5 mg PO BID 03/22/17 08/02/17 Methotrexate Sodium [Methotrexate] 7.5 mg PO MO 03/22/17 08/02/17 Montelukast [Singulair] 10 mg PO DAILY 03/22/17 08/02/17 Nitroglycerin Sl Tabs [Nitrostat] 0.4 mg SUBLINGUAL Q5M PRN 03/22/17 08/02/17 levETIRAcetam [Keppra] 500 mg PO BID 03/22/17 08/02/17 Albuterol Inhaler [Ventolin Hfa 1 - 2 puff INHALATION RT-QID PRN 06/14/17 Inhaler] Esomeprazole Magnesium [NexIUM 20 mg PO BID PRN 06/14/17 08/02/17 24Hr] buPROPion [Wellbutrin] 37.5 mg PO BID 06/14/17 08/02/17 Baclofen [Lioresal] 5 mg PO HS PRN 07/15/17 08/02/17 OXcarbazepine [Trileptal] 150 mg PO QAM 07/15/17 08/02/17 Spironolactone [Aldactone] 12.5 mg PO DAILY 07/15/17 08/02/17 Teriparatide [Forteo] 20 mcg SQ HS 07/15/17 08/02/17 busPIRone HCl [Buspar] 10 mg PO BID 07/15/17 08/02/17 Furosemide [Lasix] 60 mg PO QAM 07/29/17 08/02/17 predniSONE See Taper PO DAILY 07/29/17 08/02/17 Cephalexin [Keflex] 500 mg PO TID 08/02/17 08/02/17 HYDROcodone/APAP 5-325MG [[place] 0.25 tab PO Q6HR PRN 08/02/17 08/02/17 5-325] Previous Rx's Medication Instructions Recorded Lidocaine 5% Patch [Lidoderm 5% 1 patch TOPICAL DAILY PRN #30 patch 07/29/17 Patch] Sulfamethox-Tmp 800-160Mg [Bactrim 1 tab PO Q12HR #14 tab 07/29/17 DS 800-160 mg] Cephalexin [Keflex] 500 mg PO QID #40 cap 08/02/17 Allergies Allergy/AdvReac Type Severity Reaction Status Date / Time Penicillins Allergy Rash/Hives Verified 08/02/17 19:53 Review of Systems ROS Statement: Those systems with pertinent positive or pertinent negative responses have been documented in the HPI. ROS Other: All systems not noted in ROS Statement are negative. Past Medical History Past Medical History: Asthma, Heart Failure, Hypertension, Rheumatoid Arthritis (RA) Additional Past Medical History / Comment(s): osteoporosis History of Any Multi-Drug Resistant Organisms: None Reported Past Surgical History: Cholecystectomy, Tonsillectomy Past Anesthesia/Blood Transfusion Reactions: No Reported Reaction Past Psychological History: Anxiety, Depression Smoking Status: Former smoker Past Alcohol Use History: None Reported Past Drug Use History: None Reported - Past Family History Mother Family Medical History: Asthma Additional Family Medical History / Comment(s): depression Father Additional Family Medical History / Comment(s): ETOH General Exam Limitations: no limitations General appearance: alert, in no apparent distress Eye exam: Present: normal appearance, PERRL, EOMI. Absent: scleral icterus, conjunctival injection, periorbital swelling ENT exam: Present: normal exam, mucous membranes moist Neck exam: Present: normal inspection, full ROM. Absent: tenderness, meningismus, lymphadenopathy Respiratory exam: Present: normal lung sounds bilaterally. Absent: respiratory distress, wheezes, rales, rhonchi, stridor Cardiovascular Exam: Present: regular rate, normal rhythm, normal heart sounds. Absent: systolic murmur, diastolic murmur, rubs, gallop, clicks GI/Abdominal exam: Present: soft, normal bowel sounds. Absent: distended, tenderness, guarding, rebound, rigid Extremities exam: Present: full ROM, normal capillary refill, other (At her lower chart is Exhibit 3+ pitting edema, left lateral lower leg exhibits some area of bruising that is purple in color, right lower leg has bruising laterally that is purple in color however over the anterior leg in the center there is a wound with a central area of what appears to be necrosis. Area is soft and fluctuant. Right lower extremity does have significant weeping noted. Bilateral post tibial and pedal pulses are intact and equal bilaterally. ). Absent: normal inspection Back exam: Present: normal inspection, tenderness (Over the lumbar spine near area of Vesely diagnosis fracture.) Neurological exam: Present: alert, oriented X3, CN II-XII intact Psychiatric exam: Present: normal affect, depressed Skin exam: Present: warm, dry, intact, normal color. Absent: rash Course Vital Signs 08/02/17 18:02 Temperature 97.9 F Pulse Rate 105 H Respiratory 22 Rate Blood Pressure 127/73 O2 Sat by Pulse 93 L Oximetry Medical Decision Making - Medical Decision Making 22-year-old male patient presents to emergency department today for reevaluation of lower leg cellulitis and right leg wound. Blood work was formed and did show a normal white blood cell count. Electrolytes are fairly normal. Patient will be switched from Bactrim to Keflex as the Bactrim made her very nauseated. She will be instructed to continue wound care with her home nurse, continue to keep her legs elevated, and to follow-up with her primary care physician for recheck as soon as possible. She is instructed to return here immediately if she develops any fever, chills, purulent drainage, new, or worsening symptoms. She verbalizes understanding and agrees with this plan. - Lab Data Result diagrams: 08/02/17 19:55 08/02/17 19:55 Lab Results 08/02/17 08/02/17 Range/Units 19:55 19:55 WBC 10.2 (3.8-10.6) k/uL RBC 3.59 L (3.80-5.40) m/uL Hgb 11.3 L (11.4-16.0) gm/dL Hct 33.1 L (34.0-46.0) % MCV 92.1 (80.0-100.0) fL MCH 31.5 (25.0-35.0) pg MCHC 34.2 (31.0-37.0) g/dL RDW 16.0 H (11.5-15.5) % Plt Count 505 H (150-450) k/uL Neutrophils % 85 % Lymphocytes % 7 % Monocytes % 5 % Eosinophils % 1 % Basophils % 0 % Neutrophils # 8.7 H (1.3-7.7) k/uL Lymphocytes # 0.7 L (1.0-4.8) k/uL Monocytes # 0.5 (0-1.0) k/uL Eosinophils # 0.1 (0-0.7) k/uL Basophils # 0.0 (0-0.2) k/uL Anisocytosis Slight Sodium 135 L (137-145) mmol/L Potassium 4.4 (3.5-5.1) mmol/L Chloride 97 L (98-107) mmol/L Carbon Dioxide 31 H (22-30) mmol/L Anion Gap 7 mmol/L BUN 17 (7-17) mg/dL Creatinine 0.98 (0.52-1.04) mg/dL Est GFR (MDRD) Af Amer >60 (>60 ml/min/1.73 sqM) Est GFR (MDRD) Non-Af 56 (>60 ml/min/1.73 sqM) Glucose 86 (74-99) mg/dL Calcium 8.9 (8.4-10.2) mg/dL Total Bilirubin 0.4 (0.2-1.3) mg/dL AST 22 (14-36) U/L ALT 42 (9-52) U/L Alkaline Phosphatase 147 H (38-126) U/L Total Protein 6.2 L (6.3-8.2) g/dL Albumin 3.6 (3.5-5.0) g/dL Disposition Clinical Impression: Cellulitis, Wound of right leg Disposition: HOME SELF-CARE Condition: Good Instructions: Cellulitis (ED), Acute Wound Care (ED) Additional Instructions: Keep area clean and dry. Keep legs elevated. Complete antibiotic prescription and full. Follow-up with her primary care physician for recheck in 1-2 days. Return here immediately for any new, worsening, or concerning symptoms. Prescriptions: Cephalexin [Keflex] 500 mg PO QID #40 cap Referrals: Marcia Loomis DO [Primary Care Provider] - 1-2 days Time of Disposition: 21:06
[2017-08-02 20:18] LABS: Anisocytosis Slight; Basophils % (A) 0 %; CHCM 34.9; Eosinophils # (A) 0.1 k/uL (0-0.7); Eosinophils % (A) 1 %; HCT 33.1 % (34.0-46.0); HDW 2.79; HGB 11.3 gm/dL (11.4-16.0); Luc # (Auto) 0.14; Luc % (Auto) 1; Lymphocytes # (A) 0.7 k/uL (1.0-4.8); Lymphocytes % (A) 7 %; MCH 31.5 pg (25.0-35.0); MCHC 34.2 g/dL (31.0-37.0); MCV 92.1 fL (80.0-100.0); Mean Platelet Volume 6.9; Monocytes # (A) 0.5 k/uL (0-1.0); Monocytes % (A) 5 %; Neutrophils # (A) 8.7 k/uL (1.3-7.7); Neutrophils % (A) 85 %; RBC 3.59 m/uL (3.80-5.40); WBC 10.2 k/uL (3.8-10.6); WBC (Perox) 10.07
[2017-08-02 20:31] LABS: ALT 42 U/L (9-52); AST 22 U/L (14-36); Alkaline Phosphatase 147 U/L (38-126); Anion Gap 7 mmol/L; Blood Urea Nitrogen 17 mg/dL (7-17); Calcium 8.9 mg/dL (8.4-10.2); Carbon Dioxide 31 mmol/L (22-30); Chloride 97 mmol/L (98-107); Glucose 86 mg/dL (74-99); Non-African American GFR(MDRD) 56 (>60 ml/min/1.73 sqM); Potassium 4.4 mmol/L (3.5-5.1); Sodium 135 mmol/L (137-145); Total Bilirubin 0.4 mg/dL (0.2-1.3); Total Protein 6.2 g/dL (6.3-8.2)
[2017-08-02 21:26] VITALS: BP 130/67; PULSE 88; RESP 20
== END 2017-08-02 21:26 | disposition home or self-care (01) ==
LOC: EC 17:34
DX: L03.115 Cellulitis of right lower limb (principal); S81.801D Unspecified open wound, right lower leg, subsequent encounter; J45.909 Unspecified asthma, uncomplicated; I11.0 Hypertensive heart disease with heart failure; I50.9 Heart failure, unspecified; M06.9 Rheumatoid arthritis, unspecified; F32.9 Major depressive disorder, single episode, unspecified; F41.9 Anxiety disorder, unspecified; Z88.0 Allergy status to penicillin; Z79.51 Long term (current) use of inhaled steroids; Z79.82 Long term (current) use of aspirin; Z79.899 Other long term (current) drug therapy; Z87.891 Personal history of nicotine dependence; X58.XXXD Exposure to other specified factors, subsequent encounter
CPT/HCPCS: 36415; 80053; 85025; 87040; 87070; 87205; 99283

== ENCOUNTER 2017-08-07 08:46 | Emergency (ER) | payer MEDICARE, OTHER ==
[2017-08-07 08:50] VITALS: BP 117/61; PULSE 104; RESP 18; TEMP 97.5
[2017-08-07] MEDS ORDERED: HYDROmorphone 1 MG/ML 1 ML SYRINGE IM STA (09:07)
[2017-08-07] MEDS ORDERED: ONDANSETRON 4 MG ODT STARTER PACK 2 TAB BTL PO STA (09:07)
--- NOTE | 2017-08-07 09:07 | ED ---
Lower Extremity Injury HPI - General Chief Complaint: Extremity Injury, Lower Stated Complaint: RT KNEE PAIN Time Seen by Provider: 08/07/17 08:54 Source: patient, RN notes reviewed, old records reviewed Mode of arrival: wheelchair Limitations: no limitations - History of Present Illness Initial Comments: This is a 72-year-old male presenting to the emergency Department chief complaint of increased right knee pain. Patient reports his pain deep within the joint. She reports that she needs an injection within her knee. Patient states that the pain is too severe and she cannot handle it. Patient reports that she is on pain medication but hasn't been able take anything because her stomach is upset. She reports that she is also on Keflex for a left right lower leg cellulitis. She states that it is improving after taking his antibiotics. Patient was seen in the emergency department 4 days ago for similar complaints. Patient also relates that she has known back fractures, and his been seeing Dr. Del Rio. Patient states that she saw him 2 days ago. Patient also reports she feels nauseated due to the medication she is on. Patient states he is not on any nausea medication. Patient reports and is worse with ambulation. Patient denies any falls or new injuries to cause this pain. She reports that the pain became increasingly worse over the past few days and her right knee. - Related Data Home Medications Medication Instructions Recorded Confirmed Albuterol Nebulized [Ventolin 2.5 mg INHALATION RT-DAILY 03/22/17 08/07/17 Nebulized] Aspirin EC [Ecotrin Low Dose] 81 mg PO HS 03/22/17 08/07/17 Dexamethasone [Hexadrol] 2 mg PO DAILY 03/22/17 08/07/17 Ergocalciferol [Vitamin D2 50,000 unit PO MO 03/22/17 08/07/17 (DRISDOL)] Fluticasone/Vilanterol [Breo 1 puff INHALATION RT-DAILY 03/22/17 08/07/17 Ellipta 100-25 Mcg Inhaler] Furosemide [Lasix] 40 mg PO DAILY@1600 03/22/17 08/07/17 Lisinopril [Zestril] 2.5 mg PO BID 03/22/17 08/07/17 Methotrexate Sodium [Methotrexate] 7.5 mg PO MO 03/22/17 08/07/17 Montelukast [Singulair] 10 mg PO DAILY 03/22/17 08/07/17 Nitroglycerin Sl Tabs [Nitrostat] 0.4 mg SUBLINGUAL Q5M PRN 03/22/17 08/07/17 levETIRAcetam [Keppra] 500 mg PO BID 03/22/17 08/07/17 Albuterol Inhaler [Ventolin Hfa 1 - 2 puff INHALATION RT-QID PRN 06/14/17 Inhaler] Esomeprazole Magnesium [NexIUM 20 mg PO BID PRN 06/14/17 08/07/17 24Hr] buPROPion [Wellbutrin] 37.5 mg PO BID 06/14/17 08/07/17 Baclofen [Lioresal] 5 mg PO HS PRN 07/15/17 08/07/17 OXcarbazepine [Trileptal] 150 mg PO QAM 07/15/17 08/07/17 Spironolactone [Aldactone] 12.5 mg PO DAILY 07/15/17 08/07/17 Teriparatide [Forteo] 20 mcg SQ HS 07/15/17 08/07/17 busPIRone HCl [Buspar] 10 mg PO BID 07/15/17 08/07/17 Furosemide [Lasix] 60 mg PO QAM 07/29/17 08/07/17 predniSONE See Taper PO DAILY 07/29/17 08/07/17 HYDROcodone/APAP 5-325MG [[place] 0.25 tab PO Q6HR PRN 08/02/17 08/07/17 5-325] Previous Rx's Medication Instructions Recorded Lidocaine 5% Patch [Lidoderm 5% 1 patch TOPICAL DAILY PRN #30 patch 07/29/17 Patch] Cephalexin [Keflex] 500 mg PO QID #40 cap 08/02/17 Ondansetron Odt [Zofran Odt] 4 mg PO Q8HR PRN #15 tab 08/07/17 Allergies Allergy/AdvReac Type Severity Reaction Status Date / Time Penicillins Allergy Rash/Hives Verified 08/07/17 08:50 Review of Systems ROS Statement: Those systems with pertinent positive or pertinent negative responses have been documented in the HPI. ROS Other: All systems not noted in ROS Statement are negative. Past Medical History Past Medical History: Asthma, Heart Failure, Hypertension, Rheumatoid Arthritis (RA) Additional Past Medical History / Comment(s): osteoporosis History of Any Multi-Drug Resistant Organisms: None Reported Past Surgical History: Cholecystectomy, Tonsillectomy Past Anesthesia/Blood Transfusion Reactions: No Reported Reaction Past Psychological History: Anxiety, Depression Smoking Status: Former smoker Past Alcohol Use History: None Reported Past Drug Use History: None Reported - Past Family History Mother Family Medical History: Asthma Additional Family Medical History / Comment(s): depression Father Additional Family Medical History / Comment(s): ETOH General Exam - General Exam Comments Initial Comments: This is a 72-year-old female. Patient is anxious and crying. Limitations: no limitations General appearance: alert, in no apparent distress Head exam: Present: atraumatic, normocephalic, normal inspection Eye exam: Present: normal appearance, PERRL, EOMI. Absent: scleral icterus, conjunctival injection, periorbital swelling ENT exam: Present: normal exam, mucous membranes moist Neck exam: Present: normal inspection. Absent: tenderness, meningismus, lymphadenopathy Respiratory exam: Present: normal lung sounds bilaterally. Absent: respiratory distress, wheezes, rales, rhonchi, stridor Cardiovascular Exam: Present: regular rate, normal rhythm, normal heart sounds. Absent: systolic murmur, diastolic murmur, rubs, gallop, clicks GI/Abdominal exam: Present: soft, normal bowel sounds. Absent: distended, tenderness, guarding, rebound, rigid Extremities exam: Present: normal inspection, full ROM, normal capillary refill. Absent: tenderness, pedal edema, joint swelling, calf tenderness Right Knee exam: Present: normal inspection, full ROM, tenderness (Reports some tenderness over the medial aspect of the knee. No bruising noted. No palpable cord. No erythema up the leg.) Lower Leg exam: Present: normal inspection, swelling. Absent: full ROM Ankle exam: Present: normal inspection, erythema (Slight erythema over the lower leg. Evidence of the bruise noted on the last lateral aspect of the right lower leg. This is covered. Does appear to be healing well since previous visit. Patient pitting edema 2+ bilaterally.). Absent: full ROM Foot/Toe exam: Present: normal inspection, full ROM Neurovascular tendon exam: Present: no vascular compromise Back exam: Present: normal inspection Neurological exam: Present: alert, oriented X3, CN II-XII intact Psychiatric exam: Present: normal affect, normal mood Skin exam: Present: warm, dry, intact, normal color. Absent: rash Course Vital Signs 08/07/17 08:47 Temperature 97.5 F L Pulse Rate 104 H Respiratory 18 Rate Blood Pressure 117/61 O2 Sat by Pulse 95 Oximetry Medical Decision Making - Medical Decision Making 72-year-old female chief complaint increased right knee pain. No recent falls or any other injuries to cause a worsening pain. Patient's knee appears to be normal. No erythema. No palpable cord or tenderness over the posterior knee. Patient continues to be seen significantly demanding in the emergency department. At this time physical exam is stable for leg. The past and she's been to emergency from and she's had full workup. Patient reports she has been taking her antibiotics for cellulitis as well. She does have range of motion the knee. Is able to bear weight on it. Patient is requesting that I contact [facility] in regards to getting her scheduled for a pain shot and within the knee joint. Discussed that I will try. I did make attempts to call [facility] however they did not answer. Discussed that she needs to follow up on her own and call [facility] for further management. She did receive at [address] Del Rio her back specialist yesterday. Patient reports that if she would've known that they did knee injection she would've had it done at that time too. Patient received IM Dilaudid and a Zofran starter pack. Discussed that she has to follow-up on her own with [facility]. Patient agrees to treatment plan will comply. Return parameters were discussed. Disposition Clinical Impression: Chronic pain of right knee Disposition: HOME SELF-CARE Condition: Stable Instructions: Knee Pain (ED) Additional Instructions: Patient has a follow-up with disaster or damage control specialist if you want a steroid injection within the knee. Patient advised to take your pain medication prescribed at home. He continues a nausea medication as needed. Continue to complete her antibiotic prescription. Return to the emergency department if any alarming signs or symptoms occur. Prescriptions: Ondansetron Odt [Zofran Odt] 4 mg PO Q8HR PRN #15 tab PRN Reason: Nausea Referrals: Marcia Loomis DO [Primary Care Provider] - 1-2 days Jose Luis Del Rio DO [Doctor of Osteopathic Medicine] - 1-2 days Time of Disposition: 09:39
== END 2017-08-07 10:26 | disposition home or self-care (01) ==
LOC: EC 08:46
DX: G89.29 Other chronic pain (principal); M25.561 Pain in right knee; M79.89 Other specified soft tissue disorders; L03.115 Cellulitis of right lower limb; R60.0 Localized edema; R11.0 Nausea; I11.0 Hypertensive heart disease with heart failure; I50.9 Heart failure, unspecified; J45.909 Unspecified asthma, uncomplicated; M06.9 Rheumatoid arthritis, unspecified; M81.0 Age-related osteoporosis without current pathological fracture; F32.9 Major depressive disorder, single episode, unspecified; F41.9 Anxiety disorder, unspecified; Z87.891 Personal history of nicotine dependence; Z79.52 Long term (current) use of systemic steroids; Z79.51 Long term (current) use of inhaled steroids; Z79.82 Long term (current) use of aspirin; Z79.899 Other long term (current) drug therapy; Z88.0 Allergy status to penicillin
CPT/HCPCS: 99283; 96372; J1170; S0119

== ENCOUNTER 2018-03-24 10:51 | Emergency (ER) | payer MEDICARE, OTHER ==
[2018-03-24] MEDS ORDERED: ONDANSETRON 4 MG/2 ML VIAL IVP STA (11:05)
[2018-03-24] MEDS ORDERED: SODIUM CHLORIDE 0.9% 500 ML IV ONE (11:06)
[2018-03-24] MEDS ORDERED: HYDROcodone/APAP 5-325MG 1 EACH TAB PO STA (11:06)
--- NOTE | 2018-03-24 11:20 | ED ---
Nausea/Vomiting/Diarrhea HPI - General Chief complaint: Nausea/Vomiting/Diarrhea Stated complaint: Vomiting Time Seen by Provider: 03/24/18 10:57 Source: patient Mode of arrival: wheelchair Limitations: no limitations - History of Present Illness Initial comments: This is a 72-year-old female to history of CHF and COPD who presents emergency department for nausea and dry heaves over the last 4 days. She states that she has been extremely nauseated and has not been able to take her medications for the last 2 days. She states that she has not had any sick contacts. She states that she has been having normal amount of bowel movements without any diarrhea. Denies fevers however does admit to some chills. She does admit to some increased shortness of breath. She is chronically on oxygen at home and wears 1-1/2-2 L of oxygen. She denies any chest pains. No abdominal pain, just nausea. States that she also has some right wrist pain which is been bothering her for the last few days as well. She went to see her primary doctor who attributed that to using her cane. She does have a history of arthritis. She notes swelling to the right wrist as well. No trauma or falls to the area. Denies any other acute complaints. - Related Data Home Medications Medication Instructions Recorded Confirmed Albuterol Nebulized [Ventolin 2.5 mg INHALATION RT-DAILY 03/22/17 08/07/17 Nebulized] Aspirin EC [Ecotrin Low Dose] 81 mg PO HS 03/22/17 08/07/17 Dexamethasone [Hexadrol] 2 mg PO DAILY 03/22/17 08/07/17 Ergocalciferol [Vitamin D2 50,000 unit PO MO 03/22/17 08/07/17 (DRISDOL)] Fluticasone/Vilanterol [Breo 1 puff INHALATION RT-DAILY 03/22/17 08/07/17 Ellipta 100-25 Mcg Inhaler] Furosemide [Lasix] 40 mg PO DAILY@1600 03/22/17 08/07/17 Lisinopril [Zestril] 2.5 mg PO BID 03/22/17 08/07/17 Methotrexate Sodium [Methotrexate] 7.5 mg PO MO 03/22/17 08/07/17 Montelukast [Singulair] 10 mg PO DAILY 03/22/17 08/07/17 Nitroglycerin Sl Tabs [Nitrostat] 0.4 mg SUBLINGUAL Q5M PRN 03/22/17 08/07/17 levETIRAcetam [Keppra] 500 mg PO BID 03/22/17 08/07/17 Albuterol Inhaler [Ventolin Hfa 1 - 2 puff INHALATION RT-QID PRN 06/14/17 Inhaler] Esomeprazole Magnesium [NexIUM 20 mg PO BID PRN 06/14/17 08/07/17 24Hr] buPROPion [Wellbutrin] 37.5 mg PO BID 06/14/17 08/07/17 Baclofen [Lioresal] 5 mg PO HS PRN 07/15/17 08/07/17 OXcarbazepine [Trileptal] 150 mg PO QAM 07/15/17 08/07/17 Spironolactone [Aldactone] 12.5 mg PO DAILY 07/15/17 08/07/17 Teriparatide [Forteo] 20 mcg SQ HS 07/15/17 08/07/17 busPIRone HCl [Buspar] 10 mg PO BID 07/15/17 08/07/17 Furosemide [Lasix] 60 mg PO QAM 07/29/17 08/07/17 predniSONE See Taper PO DAILY 07/29/17 08/07/17 HYDROcodone/APAP 5-325MG [[place] 0.25 tab PO Q6HR PRN 08/02/17 08/07/17 5-325] Previous Rx's Medication Instructions Recorded Lidocaine 5% Patch [Lidoderm 5% 1 patch TOPICAL DAILY PRN #30 patch 07/29/17 Patch] Cephalexin [Keflex] 500 mg PO QID #40 cap 08/02/17 Ondansetron Odt [Zofran Odt] 4 mg PO Q8HR PRN #15 tab 08/07/17 Ondansetron Odt [Zofran Odt] 4 mg PO Q8HR PRN #12 tab 03/24/18 predniSONE 50 mg PO DAILY #4 tablet 03/24/18 Allergies Allergy/AdvReac Type Severity Reaction Status Date / Time Penicillins Allergy Rash/Hives Verified 03/24/18 10:52 Review of Systems ROS Statement: Those systems with pertinent positive or pertinent negative responses have been documented in the HPI. ROS Other: All systems not noted in ROS Statement are negative. Past Medical History Past Medical History: Asthma, Heart Failure, Hypertension, Rheumatoid Arthritis (RA) Additional Past Medical History / Comment(s): osteoporosis History of Any Multi-Drug Resistant Organisms: None Reported Past Surgical History: Cholecystectomy, Tonsillectomy Past Anesthesia/Blood Transfusion Reactions: No Reported Reaction Past Psychological History: Anxiety, Depression Smoking Status: Former smoker Past Alcohol Use History: None Reported Past Drug Use History: None Reported - Past Family History Mother Family Medical History: Asthma Additional Family Medical History / Comment(s): depression Father Additional Family Medical History / Comment(s): ETOH General Exam - General Exam Comments Initial Comments: Constitutional: [Awake alert] [Appears comfortable] Head: [Normocephalic atraumatic] Eyes: [no conjunctival injection] [No scleral icterus] [EOMI] ENT: Oral mucosa is tacky, TMs clear bilaterally Neck: [No JVD] [Supple] Heart: [Regular rate rhythm] [normal S1-S2] [no murmurs] Lungs: She appears tachypnea with mild expiratory wheezes occasionally, no rales or rhonchi Abdomen: [Soft] [nondistended] [nontender] Extremities: [Non edematous] [DP pulses intact] [Radial pulses intact] Neuro: [A&Ox3] [No focal neurologic deficits] Psych: [Appropriate mood and affect] Limitations: no limitations Course Vital Signs 03/24/18 03/24/18 03/24/18 10:52 11:55 12:57 Temperature 98.3 F 98.9 F Pulse Rate 102 H 100 82 Respiratory 24 22 18 Rate Blood Pressure 133/64 127/67 131/58 O2 Sat by Pulse 94 L 99 97 Oximetry - Reevaluation(s) Reevaluation #1: 03/24/18 11:59 EKG showing normal sinus rhythm with a rate of 91. There is no abnormal ST segment changes or T-wave inversions. QTC is 487. QRS is prolonged due to left bundle-branch block which is unchanged from previous. She does have one PVC. Medical Decision Making - Medical Decision Making This is a 72-year-old female who presents emergency department for mostly nausea and dry heaves. She also complained of right wrist pain. She was found to have a swollen and warm wrist however no significant erythema. Inflammatory markers were elevated however not severely so. She has no leukocytosis. My suspicion for septic arthritis is low. 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 The patient's nausea and vomiting resolved after Zofran and she was able to tolerate water and crackers at bedside. This time I feel that she is likely suffering from a viral etiology of her symptoms. Going to send her home on Zofran and also some steroids for her arthritis. She was instructed to take Motrin or Aleve for pain and have close follow-up with her primary doctor later on this week and also instructed to get a 6 wrist splint for pain relief. Can return emergency Department if she has worsening or changing symptoms. All questions were answered. - Lab Data Result diagrams: 03/24/18 11:23 03/24/18 11:23 Lab Results 03/24/18 03/24/18 03/24/18 Range/Units 11:23 11:23 11:23 WBC 11.3 H (3.8-10.6) k/uL RBC 3.65 L (3.80-5.40) m/uL Hgb 11.0 L (11.4-16.0) gm/dL Hct 32.6 L (34.0-46.0) % MCV 89.3 (80.0-100.0) fL MCH 30.2 (25.0-35.0) pg MCHC 33.8 (31.0-37.0) g/dL RDW 14.7 (11.5-15.5) % Plt Count 407 (150-450) k/uL Neutrophils % 82 % Lymphocytes % 8 % Monocytes % 8 % Eosinophils % 1 % Basophils % 0 % Neutrophils # 9.3 H (1.3-7.7) k/uL Lymphocytes # 0.9 L (1.0-4.8) k/uL Monocytes # 0.9 (0-1.0) k/uL Eosinophils # 0.1 (0-0.7) k/uL Basophils # 0.0 (0-0.2) k/uL ESR 57 H (0-20) mm/hr Sodium 130 L (137-145) mmol/L Potassium 3.6 (3.5-5.1) mmol/L Chloride 89 L (98-107) mmol/L Carbon Dioxide 32 H (22-30) mmol/L Anion Gap 9 mmol/L BUN 18 H (7-17) mg/dL Creatinine 0.80 (0.52-1.04) mg/dL Est GFR (CKD-EPI)AfAm 86 (>60 ml/min/1.73 sqM) Est GFR (CKD-EPI)NonAf 75 (>60 ml/min/1.73 sqM) Glucose 115 H (74-99) mg/dL Calcium 8.9 (8.4-10.2) mg/dL Magnesium 1.7 (1.6-2.3) mg/dL Total Bilirubin 1.2 (0.2-1.3) mg/dL AST 26 (14-36) U/L ALT 31 (9-52) U/L Alkaline Phosphatase 88 (38-126) U/L Troponin I 0.015 (0.000-0.034) ng/mL C-Reactive Protein 162.0 H (<10.0) mg/L NT-Pro-B Natriuret Pep pg/mL Total Protein 5.9 L (6.3-8.2) g/dL Albumin 3.4 L (3.5-5.0) g/dL Urine Color Urine Appearance (Clear) Urine pH (5.0-8.0) Ur Specific [place] (1.001-1.035) Urine Protein (Negative) Urine Glucose (UA) (Negative) Urine Ketones (Negative) Urine Blood (Negative) Urine Nitrite (Negative) Urine Bilirubin (Negative) Urine Urobilinogen (<2.0) mg/dL Ur Leukocyte Esterase (Negative) Urine RBC (0-5) /hpf Urine WBC (0-5) /hpf Ur Squamous Epith Cells (0-4) /hpf Urine Mucus (None) /hpf 03/24/18 03/24/18 Range/Units 11:43 12:05 WBC (3.8-10.6) k/uL RBC (3.80-5.40) m/uL Hgb (11.4-16.0) gm/dL Hct (34.0-46.0) % MCV (80.0-100.0) fL MCH (25.0-35.0) pg MCHC (31.0-37.0) g/dL RDW (11.5-15.5) % Plt Count (150-450) k/uL Neutrophils % % Lymphocytes % % Monocytes % % Eosinophils % % Basophils % % Neutrophils # (1.3-7.7) k/uL Lymphocytes # (1.0-4.8) k/uL Monocytes # (0-1.0) k/uL Eosinophils # (0-0.7) k/uL Basophils # (0-0.2) k/uL ESR (0-20) mm/hr Sodium (137-145) mmol/L Potassium (3.5-5.1) mmol/L Chloride (98-107) mmol/L Carbon Dioxide (22-30) mmol/L Anion Gap mmol/L BUN (7-17) mg/dL Creatinine (0.52-1.04) mg/dL Est GFR (CKD-EPI)AfAm (>60 ml/min/1.73 sqM) Est GFR (CKD-EPI)NonAf (>60 ml/min/1.73 sqM) Glucose (74-99) mg/dL Calcium (8.4-10.2) mg/dL Magnesium (1.6-2.3) mg/dL Total Bilirubin (0.2-1.3) mg/dL AST (14-36) U/L ALT (9-52) U/L Alkaline Phosphatase (38-126) U/L Troponin I (0.000-0.034) ng/mL C-Reactive Protein (<10.0) mg/L NT-Pro-B Natriuret Pep 155 pg/mL Total Protein (6.3-8.2) g/dL Albumin (3.5-5.0) g/dL Urine Color Yellow Urine Appearance Cloudy H (Clear) Urine pH 6.0 (5.0-8.0) Ur Specific [place] 1.022 (1.001-1.035) Urine Protein 1+ H (Negative) Urine Glucose (UA) Negative (Negative) Urine Ketones Negative (Negative) Urine Blood Negative (Negative) Urine Nitrite Negative (Negative) Urine Bilirubin Negative (Negative) Urine Urobilinogen 6.0 (<2.0) mg/dL Ur Leukocyte Esterase Trace H (Negative) Urine RBC 5 (0-5) /hpf Urine WBC 10 H (0-5) /hpf Ur Squamous Epith Cells 3 (0-4) /hpf Urine Mucus Many H (None) /hpf Disposition Clinical Impression: Nausea & vomiting, Arthritis, Stasis dermatitis of both legs Disposition: HOME SELF-CARE Condition: Stable Instructions: Acute Nausea and Vomiting (ED), Arthritis (ED) Additional Instructions: Please machine operator picker a velcro wrist splint at the pharmacy Prescriptions: Ondansetron Odt [Zofran Odt] 4 mg PO Q8HR PRN #12 tab PRN Reason: nausea predniSONE 50 mg PO DAILY #4 tablet Is patient prescribed a controlled substance at d/c from ED?: No Referrals: Marcia Loomis DO [Primary Care Provider] - 1-2 days
[2018-03-24 11:38] LABS: Basophils % (A) 0 %; Eosinophils # (A) 0.1 k/uL (0-0.7); Eosinophils % (A) 1 %; HCT 32.6 % (34.0-46.0); Lymphocytes # (A) 0.9 k/uL (1.0-4.8); Lymphocytes % (A) 8 %; MCH 30.2 pg (25.0-35.0); MCHC 33.8 g/dL (31.0-37.0); MCV 89.3 fL (80.0-100.0); Mean Platelet Volume 6.7; Monocytes # (A) 0.9 k/uL (0-1.0); Monocytes % (A) 8 %; Neutrophils # (A) 9.3 k/uL (1.3-7.7); Neutrophils % (A) 82 %; Platelet Count 407 k/uL (150-450); RBC 3.65 m/uL (3.80-5.40); RDW 14.7 % (11.5-15.5); WBC 11.3 k/uL (3.8-10.6)
[2018-03-24 11:48] LABS: Albumin 3.4 g/dL (3.5-5.0); Calcium 8.9 mg/dL (8.4-10.2); Magnesium 1.7 mg/dL (1.6-2.3); Potassium 3.6 mmol/L (3.5-5.1); Total Bilirubin 1.2 mg/dL (0.2-1.3); Total Protein 5.9 g/dL (6.3-8.2)
[2018-03-24 12:25] LABS: Appearance,Urine Cloudy (Clear); Bilirubin,Urine Negative (Negative); Blood,Urine Negative (Negative); Color,Urine Yellow; Glucose,Urine (UA) Negative (Negative); Ketones,Urine Negative (Negative); Leukocyte Esterase,Urine Trace (Negative); Mucus,Urine Many /hpf; Nitrite,Urine Negative (Negative); Protein,Urine 1+ (Negative); RBC,Urine 5 /hpf (0-5); Specific Gravity,Urine 1.022 (1.001-1.035); Squamous Epithelial Cell,Urine 3 /hpf (0-4); WBC,Urine 10 /hpf (0-5)
--- NOTE | 2018-03-24 12:32 | XR ---
EXAMINATION TYPE: XR chest 2V DATE OF EXAM: 03/24/2018 COMPARISON: 07/15/2017 HISTORY: Shortness of breath TECHNIQUE: Frontal and lateral views of the chest are obtained. FINDINGS: There is no focal air space opacity, pleural effusion, or pneumothorax seen. The cardiac silhouette size is within normal limits. The osseous structures are intact. IMPRESSION: There is chronic elevation of the left hemidiaphragm. Left basilar pleural-parenchymal s carring at the left costophrenic angle is again seen. Trace amount of intrafissural fluid is noted wi thin the minor fissure. Low-density slight ovoid structure along the left pleural surface could relat e to loculated trace pleural effusion into be reassessed on follow-up exams. Cardiac silhouette is en larged. No overt pulmonary vascular congestion. Osseous structures are intact. IMPRESSION: 1. Chronic left hemidiaphragm elevation and chronic atelectasis with possible trace loculated pleural effusion versus pulmonary nodule near the left costophrenic angle. Short-term follow-up exam to reas sess this is equivocal finding. 2. Cardiomegaly without acute pulmonary vascular congestion.
--- NOTE | 2018-03-24 12:34 | XR ---
EXAMINATION TYPE: XR wrist complete RT DATE OF EXAM: 03/24/2018 CLINICAL HISTORY: Right wrist pain and swelling with no known injury TECHNIQUE: Frontal, lateral and oblique images of the right wrist are obtained. COMPARISON: None FINDINGS: There is no acute fracture/dislocation evident in the right wrist. There are extensive deg enerative changes the first metacarpal phalangeal joint with opposing surface sclerosis and large pro tuberant marginal osteophytes. Sclerosis of the distal scaphoid pole and its articulation with the tr apezium are also likely on a degenerative basis. There is diffuse osseous demineralization. The overl nilda soft tissue appears unremarkable. IMPRESSION: 1. No acute fracture or dislocation in the right wrist. 2. Extensive arthropathy of the first carpometacarpal joint and scaphoid trapezium joint.
[2018-03-24] MEDS ORDERED: KETOROLAC 30 MG/ML 1 ML VIAL IVP STA (12:37)
[2018-03-24] MEDS ORDERED: methylPREDNISolone SOD SUCCI 125 MG/2 ML VIAL IV STA (12:37)
[2018-03-24 12:42] LABS: Erythrocyte Sedimentation Rate 57 mm/hr (0-20)
[2018-03-24 13:01] VITALS: PULSE 82
[2018-03-24 13:40] VITALS: BP 123/60; RESP 20; TEMP 98.8
== END 2018-03-24 13:37 | disposition home or self-care (01) ==
LOC: EC 10:51
DX: R11.2 Nausea with vomiting, unspecified (principal); M19.031 Primary osteoarthritis, right wrist; I87.2 Venous insufficiency (chronic) (peripheral); R06.02 Shortness of breath; J44.9 Chronic obstructive pulmonary disease, unspecified; I50.9 Heart failure, unspecified; I11.0 Hypertensive heart disease with heart failure; M06.9 Rheumatoid arthritis, unspecified; F32.9 Major depressive disorder, single episode, unspecified; F41.9 Anxiety disorder, unspecified; Z87.891 Personal history of nicotine dependence; Z79.51 Long term (current) use of inhaled steroids; Z79.52 Long term (current) use of systemic steroids; Z79.82 Long term (current) use of aspirin; Z79.899 Other long term (current) drug therapy; Z88.0 Allergy status to penicillin
CPT/HCPCS: 36415; 93005; 83880; 80053; 85652; 83735; 84484; 85025; 86140; 81001; 73110; 71046; 99284; 96374; 96375 ×2; J2930; J2405; J1885

== ENCOUNTER 2018-03-28 11:33 | Emergency (ER) | payer MEDICARE, OTHER ==
[2018-03-28 11:42] VITALS: TEMP 98
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
[2018-03-28 13:51] VITALS: BP 156/90; PULSE 100; RESP 18
== END 2018-03-28 14:32 | disposition left against medical advice (07) ==
LOC: EC 11:33
DX: F41.9 Anxiety disorder, unspecified (principal); J45.909 Unspecified asthma, uncomplicated; I11.0 Hypertensive heart disease with heart failure; I50.9 Heart failure, unspecified; M06.9 Rheumatoid arthritis, unspecified; F32.9 Major depressive disorder, single episode, unspecified; Z87.891 Personal history of nicotine dependence; Z79.82 Long term (current) use of aspirin; Z79.52 Long term (current) use of systemic steroids; Z79.899 Other long term (current) drug therapy; Z88.0 Allergy status to penicillin; Z53.29 Procedure and treatment not carried out because of patient's decision for other reasons; W19.XXXA Unspecified fall, initial encounter
CPT/HCPCS: 99285

== ENCOUNTER 2018-11-25 06:04 | Inpatient (IN) | payer MEDICARE, OTHER ==
[2018-11-25 07:09] LABS: Basophils % (A) 0 %; Eosinophils # (A) 0.2 k/uL (0-0.7); Eosinophils % (A) 1 %; HCT 35.7 % (34.0-46.0); HGB 11.5 gm/dL (11.4-16.0); Lymphocytes # (A) 1.4 k/uL (1.0-4.8); Lymphocytes % (A) 11 %; MCH 27.4 pg (25.0-35.0); MCHC 32.3 g/dL (31.0-37.0); Mean Platelet Volume 7.7; Monocytes % (A) 8 %; Neutrophils # (A) 10.1 k/uL (1.3-7.7); Neutrophils % (A) 78 %; Platelet Count 377 k/uL (150-450); RDW 14.4 % (11.5-15.5)
[2018-11-25 07:20] LABS: ALT 41 U/L (9-52); AST 26 U/L (14-36); Albumin 3.5 g/dL (3.5-5.0); Alkaline Phosphatase 99 U/L (38-126); Amylase 50 U/L (30-110); Anion Gap 10 mmol/L; Blood Urea Nitrogen 13 mg/dL (7-17); Calcium 8.7 mg/dL (8.4-10.2); Carbon Dioxide 33 mmol/L (22-30); Chloride 88 mmol/L (98-107); Glucose 146 mg/dL (74-99); Lipase 69 U/L (23-300); Magnesium 1.6 mg/dL (1.6-2.3); Potassium 3.6 mmol/L (3.5-5.1); Sodium 131 mmol/L (137-145); Total Bilirubin 1.2 mg/dL (0.2-1.3); Total Protein 6.4 g/dL (6.3-8.2)
[2018-11-25] MEDS ORDERED: ONDANSETRON 4 MG/2 ML VIAL IVP STA (07:23)
--- NOTE | 2018-11-25 07:26 | XR ---
EXAMINATION TYPE: XR chest 2V DATE OF EXAM: 11/25/2018 COMPARISON: Prior chest x-ray 03/24/[address] 06/14/2017 HISTORY: Chest pain TECHNIQUE: Frontal and lateral views of the chest are obtained. FINDINGS: Thickening of the minor fissure is stable, heart size is stable, there are prominent epica rdial fat pads, there is prominent mediastinal fat. Patient is rotated. No evident pneumothorax. Pleu ral parenchymal changes are similar to prior exam. Pulmonary vascularity and tab not significantly c hanged. IMPRESSION: Areas of probable scarring. No acute abnormality evident.
[2018-11-25 07:29] LABS: INR 0.9 (<1.2); Prothrombin Time 9.7 sec (9.0-12.0)
--- NOTE | 2018-11-25 07:31 | ED ---
General Adult HPI - General Chief complaint: Nausea/Vomiting/Diarrhea Stated complaint: Vomiting Time Seen by Provider: 11/25/18 06:36 Source: patient, family Mode of arrival: wheelchair Limitations: no limitations - History of Present Illness Initial comments: Isabel is a pleasant 73-year-old female who presents to the emergency department today for evaluation of persistent nausea. He reports she's been nauseated for approximately 24 hours, she's been unable to tolerate anything by mouth she hasn 't taken any of her medications, she reports she's had multiple bouts of nonbloody diarrhea during this time. Partha byrnes reports that she feels like her mother is working of breathing appears uncomfortable emesis worsen with her nausea. Patient denies any chest pain, palpitations, shortness of breath she denies any abdominal pain and her only complaint is persistent nausea and "feel like I'm going to be sick" - Related Data Home Medications Medication Instructions Recorded Confirmed Albuterol Nebulized [Ventolin 2.5 mg INHALATION RT-DAILY 03/22/17 03/28/18 Nebulized] Aspirin EC [Ecotrin Low Dose] 81 mg PO HS 03/22/17 03/28/18 Dexamethasone [Hexadrol] 2 mg PO DAILY 03/22/17 03/28/18 Ergocalciferol [Vitamin D2 50,000 unit PO MO 03/22/17 03/28/18 (DRISDOL)] Furosemide [Lasix] 40 mg PO DAILY 03/22/17 03/28/18 Montelukast [Singulair] 10 mg PO DAILY 03/22/17 03/28/18 Nitroglycerin Sl Tabs [Nitrostat] 0.4 mg SUBLINGUAL Q5M PRN 03/22/17 03/28/18 levETIRAcetam [Keppra] 500 mg PO BID 03/22/17 03/28/18 Baclofen [Lioresal] 10 mg PO HS PRN 07/15/17 03/28/18 Furosemide [Lasix] 20 mg PO HS 07/29/17 03/28/18 ALPRAZolam [Xanax] 0.25 mg PO BID 03/24/18 03/28/18 Esomeprazole Magnesium [NexIUM] 40 mg PO DAILY 03/24/18 03/28/18 Folic Acid 1 mg PO DAILY 03/24/18 03/28/18 HYDROcodone/APAP 7.5-325MG [[place] 0.5 tab PO Q6HR PRN 03/24/18 03/28/18 7.5-325] Topiramate [Topamax] 25 mg PO BID 03/24/18 03/28/18 Venlafaxine HCl [Effexor] 37.5 mg PO DAILY 03/24/18 03/28/18 predniSONE 10 mg PO BID 03/24/18 03/28/18 Previous Rx's Medication Instructions Recorded Ondansetron Odt [Zofran Odt] 4 mg PO Q8HR PRN #12 tab 03/24/18 predniSONE 50 mg PO DAILY #4 tablet 03/24/18 Allergies Allergy/AdvReac Type Severity Reaction Status Date / Time Penicillins Allergy Rash/Hives Verified 03/28/18 11:46 Review of Systems ROS Statement: Those systems with pertinent positive or pertinent negative responses have been documented in the HPI. ROS Other: All systems not noted in ROS Statement are negative. Past Medical History Past Medical History: Asthma, Heart Failure, Hypertension, Rheumatoid Arthritis (RA) Additional Past Medical History / Comment(s): osteoporosis History of Any Multi-Drug Resistant Organisms: None Reported Past Surgical History: Cholecystectomy, Tonsillectomy Past Anesthesia/Blood Transfusion Reactions: No Reported Reaction Past Psychological History: Anxiety, Depression Smoking Status: Former smoker Past Alcohol Use History: None Reported Past Drug Use History: None Reported - Past Family History Mother Family Medical History: Asthma Additional Family Medical History / Comment(s): depression Father Additional Family Medical History / Comment(s): ETOH General Exam - General Exam Comments Initial Comments: Physical Exam GENERAL: Chronically ill-appearing obese female HENT: Normocephalic, Atraumatic. EYES: PERRL, EOMI PULMONARY: Tachypnea, supplemental oxygen by nasal cannula CARDIOVASCULAR: Regular rate and rhythm, warm and well perfused extremity's ABDOMEN: Soft and nontender with normal bowel sounds. SKIN: Panic skin changes bilateral lower extremities : Deferred NEUROLOGIC: Patient is alert and oriented x3. Moving all extremities spontaneously MUSCULOSKELETAL: Bilateral lower extremity edema PSYCHIATRIC: Normal psychiatric evaluation. Limitations: no limitations Limitations: no limitations Course Vital Signs 11/25/18 06:10 Temperature 98.4 F Pulse Rate 78 Respiratory 22 Rate Blood Pressure 119/72 O2 Sat by Pulse 97 Oximetry EKG Findings - EKG Comments: EKG Findings:: KG obtained at 6:39 AM, rate is 100 rhythm is sinus, normal intervals, MA 152, QRS 140, QTC 479 there is a nonspecific intraventricular block area, no acute ST elevations. Compared to EKG obtained in March of this year there were no significant changes in morphology Medical Decision Making - Medical Decision Making She was seen and evaluated upon arrival, Taylor obese elderly female with no GI history of presenting with persistent nausea, inability take by mouth intake and diarrhea for 24 hours duration. Patient is unwell-appearing, chronically she is independent, fluid overloaded, obese Labs and imaging were ordered Labs reveal hyponatremia, hypo-chloremia, these are likely resulting from the patient's diarrhea muscle by mouth intake Labs reveal leukocytosis likely secondary to acute GI illness Chest x-ray no acute findings Patient care was discussed with Dr. Diaz at 7:[address] Sharif who accepts the admission for elderly female with nausea, vomiting inability to tolerate by mouth intake, hyponatremia, need for gentle fluid rehydration and evaluation because of CHF. Time of admission cardiac enzymes were still pending. - Lab Data Result diagrams: 11/25/18 06:38 11/25/18 06:38 Lab Results 11/25/18 11/25/18 11/25/18 Range/Units 06:38 06:38 06:38 WBC 13.0 H (3.8-10.6) k/uL RBC 4.20 (3.80-5.40) m/uL Hgb 11.5 (11.4-16.0) gm/dL Hct 35.7 (34.0-46.0) % MCV 85.0 (80.0-100.0) fL MCH 27.4 (25.0-35.0) pg MCHC 32.3 (31.0-37.0) g/dL RDW 14.4 (11.5-15.5) % Plt Count 377 (150-450) k/uL Neutrophils % 78 % Lymphocytes % 11 % Monocytes % 8 % Eosinophils % 1 % Basophils % 0 % Neutrophils # 10.1 H (1.3-7.7) k/uL Lymphocytes # 1.4 (1.0-4.8) k/uL Monocytes # 1.0 (0-1.0) k/uL Eosinophils # 0.2 (0-0.7) k/uL Basophils # 0.0 (0-0.2) k/uL Sodium 131 L (137-145) mmol/L Potassium 3.6 (3.5-5.1) mmol/L Chloride 88 L (98-107) mmol/L Carbon Dioxide 33 H (22-30) mmol/L Anion Gap 10 mmol/L BUN 13 (7-17) mg/dL Creatinine 0.64 (0.52-1.04) mg/dL Est GFR (CKD-EPI)AfAm >90 (>60 ml/min/1.73 sqM) Est GFR (CKD-EPI)NonAf 90 (>60 ml/min/1.73 sqM) Glucose 146 H (74-99) mg/dL Calcium 8.7 (8.4-10.2) mg/dL Magnesium 1.6 (1.6-2.3) mg/dL Total Bilirubin 1.2 (0.2-1.3) mg/dL AST 26 (14-36) U/L ALT 41 (9-52) U/L Alkaline Phosphatase 99 (38-126) U/L Total Creatine Kinase 56 (30-135) U/L CK-MB (CK-2) 1.1 (0.0-2.4) ng/mL CK-MB (CK-2) Rel Index 2.0 Troponin I 0.022 (0.000-0.034) ng/mL NT-Pro-B Natriuret Pep pg/mL Total Protein 6.4 (6.3-8.2) g/dL Albumin 3.5 (3.5-5.0) g/dL Amylase 50 (30-110) U/L Lipase 69 (23-300) U/L 11/25/18 Range/Units 06:38 WBC (3.8-10.6) k/uL RBC (3.80-5.40) m/uL Hgb (11.4-16.0) gm/dL Hct (34.0-46.0) % MCV (80.0-100.0) fL MCH (25.0-35.0) pg MCHC (31.0-37.0) g/dL RDW (11.5-15.5) % Plt Count (150-450) k/uL Neutrophils % % Lymphocytes % % Monocytes % % Eosinophils % % Basophils % % Neutrophils # (1.3-7.7) k/uL Lymphocytes # (1.0-4.8) k/uL Monocytes # (0-1.0) k/uL Eosinophils # (0-0.7) k/uL Basophils # (0-0.2) k/uL Sodium (137-145) mmol/L Potassium (3.5-5.1) mmol/L Chloride (98-107) mmol/L Carbon Dioxide (22-30) mmol/L Anion Gap mmol/L BUN (7-17) mg/dL Creatinine (0.52-1.04) mg/dL Est GFR (CKD-EPI)AfAm (>60 ml/min/1.73 sqM) Est GFR (CKD-EPI)NonAf (>60 ml/min/1.73 sqM) Glucose (74-99) mg/dL Calcium (8.4-10.2) mg/dL Magnesium (1.6-2.3) mg/dL Total Bilirubin (0.2-1.3) mg/dL AST (14-36) U/L ALT (9-52) U/L Alkaline Phosphatase (38-126) U/L Total Creatine Kinase (30-135) U/L CK-MB (CK-2) (0.0-2.4) ng/mL CK-MB (CK-2) Rel Index Troponin I (0.000-0.034) ng/mL NT-Pro-B Natriuret Pep 133 pg/mL Total Protein (6.3-8.2) g/dL Albumin (3.5-5.0) g/dL Amylase (30-110) U/L Lipase (23-300) U/L Disposition Clinical Impression: Dehydration Disposition: ADMITTED IP TO THIS HOSP
[2018-11-25] MEDS ORDERED: NALOXONE 0.4 MG/ML 1 ML VIAL IV PRN (07:42)
[2018-11-25] MEDS ORDERED: PROCHLORPERAZINE 5 MG TAB PO PRN (07:42)
[2018-11-25 08:01] LABS: Creatine Kinase MB 1.1 ng/mL (0.0-2.4); Troponin I 0.022 ng/mL (0.000-0.034)
[2018-11-25 08:20] LABS: Partial Thromboplastin Time 17.9 sec (22.0-30.0)
[2018-11-25 11:21] LABS: Glucose,Whole Blood 151 mg/dL (75-99)
[2018-11-25] MEDS ORDERED: Magnesium Replacement Protocol 1 EACH MISC MISCELLANE PRN (12:19)
[2018-11-25] MEDS: FAMOTIDINE 20 MG TAB PO SCH (12:31)
[2018-11-25] MEDS: POTASSIUM CHLORIDE 10 MEQ in WATER FOR INJECTION 1 100ML.BAG IVPB SCH ×2 (12:31→14:47)
[2018-11-25] MEDS: MAGNESIUM SULFATE-D5W PMX 1 GM in DEXTROSE/WATER 1 100ML.BAG IVPB SCH ×2 (12:32→14:47)
[2018-11-25 18:53] LABS: Creatine Kinase MB 1.1 ng/mL (0.0-2.4)
[2018-11-25 18:56] LABS: Troponin I 0.049 ng/mL (0.000-0.034)
[2018-11-25] MEDS: DOPamine DRIP 800 MG in DEXTROSE/WATER 1 500ML.BAG IV SCH (19:40)
[2018-11-25] MEDS ORDERED: LIDOCAINE 1% INJ 10MG/ML (20 ML MDV) ONE (20:29)
[2018-11-25 20:33] LABS: Appearance,Urine Clear (Clear); Bilirubin,Urine Negative (Negative); Blood,Urine Negative (Negative); Color,Urine Yellow; Glucose,Urine (UA) Negative (Negative); Hyaline Casts,Urine 8 /lpf (0-2); Ketones,Urine Negative (Negative); Leukocyte Esterase,Urine Negative (Negative); Mucus,Urine Rare /hpf; Nitrite,Urine Negative (Negative); PH, Urine 5.5 (5.0-8.0); Protein,Urine 1+ (Negative); Specific Gravity,Urine 1.019 (1.001-1.035); WBC,Urine 1 /hpf (0-5)
--- NOTE | 2018-11-25 20:39 | P.CRDCN ---
History of Present Illness Consult date: 11/25/18 History of present illness: This is a 73-year-old female with history of meningioma, depression and history of near syncopal episode in the past has been having nausea vomiting and diarrhea for 24 hours. Patient hasn't been eating and was unable to keep a anything by mouth. She was found to be slightly hyponatremic. Patient denied any chest pain, palpitation, shortness of breath or dizziness. She denied any abdominal pain. She complained of persistent nausea and feeling like I'm going to be sick. Her initial EKG showed sinus tachycardia with left bundle-branch block pattern. Her original troponin values are normal. Subsequently she developed high degree AV block with AV dissociation and escape junctional rhythm with rates in the high 30s and 40s. Patient's blood pressure was obtained and she remained alert and oriented but very agitated and moving. It was felt that putting a temporary pacemaker be difficult because of restlessness. She was advised to have an external pacemaker Ellis. GI evaluation for her nausea was requested. Blood work was ordered including troponins. However, patient developed severe headache AV block with rates in the 20s and became intermittently unresponsive. External pacemaker was put on and patient was intubated and sedated. I discussed with situation with family and advised that we go with temporary pacemaker at this time. We'll continue evaluating her nausea. She may need permanent pacemaker implantation. During junctional rhythm. Patient had evidence of right bundle-branch block. Patient prognosis is guarded at this time. Patient was on multiple medications at home include Lasix. 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 History of Any Multi-Drug Resistant Organisms: None Reported Past Surgical History: Cholecystectomy, Tonsillectomy Past Anesthesia/Blood Transfusion Reactions: No Reported Reaction Past Psychological History: Anxiety, Depression Smoking Status: Former smoker Past Alcohol Use History: None Reported Past Drug Use History: None Reported - Past Family History Mother Family Medical History: Asthma Additional Family Medical History / Comment(s): depression Father Additional Family Medical History / Comment(s): ETOH Medications and Allergies Home Medications Medication Instructions Recorded Confirmed Type Albuterol Nebulized [Ventolin 2.5 mg INHALATION RT-DAILY 03/22/17 11/25/18 History Nebulized] Aspirin EC [Ecotrin Low Dose] 81 mg PO HS 03/22/17 11/25/18 History Dexamethasone [Hexadrol] 2 mg PO DAILY 03/22/17 11/25/18 History Ergocalciferol [Vitamin D2 50,000 unit PO MO 03/22/17 11/25/18 History (DRISDOL)] Furosemide [Lasix] 40 mg PO DAILY 03/22/17 11/25/18 History Montelukast [Singulair] 10 mg PO DAILY 03/22/17 11/25/18 History Nitroglycerin Sl Tabs [Nitrostat] 0.4 mg SUBLINGUAL Q5M PRN 03/22/17 11/25/18 History levETIRAcetam [Keppra] 500 mg PO BID 03/22/17 11/25/18 History Furosemide [Lasix] 20 mg PO HS 07/29/17 11/25/18 History ALPRAZolam [Xanax] 0.25 mg PO BID PRN 03/24/18 11/25/18 History Esomeprazole Magnesium [NexIUM] 40 mg PO BID 03/24/18 11/25/18 History Folic Acid 1 mg PO DAILY 03/24/18 11/25/18 History DULoxetine HCL [Cymbalta] 30 mg PO DAILY 11/25/18 11/25/18 History buPROPion HCL [Wellbutrin Sr] 100 mg PO DAILY 11/25/18 11/25/18 History Allergies Allergy/AdvReac Type Severity Reaction Status Date / Time Penicillins Allergy Rash/Hives Verified 11/25/18 08:13 Physical Exam Vitals: Vital Signs Temp Pulse Pulse Resp BP BP Pulse Ox 11/25/18 18:00 39 L 127/44 96 11/25/18 17:00 38 L 97 11/25/18 16:00 98.1 F 37 L 42 L 23 127/44 98 11/25/18 15:00 39 L 25 H 96 11/25/18 14:00 38 L 20 96 11/25/18 13:50 40 L 26 H 134/48 94 L 11/25/18 13:44 40 L 26 H 95 11/25/18 11:20 42 L 138/65 11/25/18 10:43 98.0 F 98 22 132/82 97 11/25/18 08:00 98.6 F 95 22 124/86 95 11/25/18 06:10 98.4 F 78 22 119/72 97 Intake and Output 11/25/18 11/25/18 11/25/18 06:59 14:59 22:59 Intake Total 100 300 Output Total 150 300 Balance -50 0 Intake: Intake, IV Titration 100 300 Amount Magnesium Sulfate-D5w Pmx 200 1 gm In Dextrose/Water 1 100ml.bag @ 100 mls/hr IVPB Q1H [facility] Rx#: [id number] Potassium Chloride 10 meq 100 100 In Water For Injection 1 100ml.bag @ 100 mls/hr IVPB Q1H [facility] Rx#: [id number] Output: Urine 150 300 Other: Voiding Method Toilet Bedside Commode # Bowel Movements 1 1 Weight 116.12 kg 117.027 kg GENERAL EXAM: Patient is intubated and sedated. HEENT: Normocephalic. Slightly dilated, sluggishly reactive NECK: No masses, no nuchal rigidity. CHEST: No chest wall deformity. LUNGS: Diminished breath sounds HEART: S1 and S2 heard ABDOMEN: Distended SKIN: No rashes CENTRAL NERVOUS SYSTEM: Deferred EXTREMITIES: Mild edema Results 11/25/18 06:38 11/25/18 06:38 Cardiac Enzymes 11/25/18 11/25/18 11/25/18 Range/Units 06:38 06:38 18:02 AST 26 (14-36) U/L CK-MB (CK-2) 1.1 1.1 (0.0-2.4) ng/mL Troponin I 0.022 0.049 H* (0.000-0.034) ng/mL Coagulation 11/25/18 Range/Units 06:38 PT 9.7 (9.0-12.0) sec APTT 17.9 L (22.0-30.0) sec CBC 11/25/18 Range/Units 06:38 WBC 13.0 H (3.8-10.6) k/uL RBC 4.20 (3.80-5.40) m/uL Hgb 11.5 (11.4-16.0) gm/dL Hct 35.7 (34.0-46.0) % Plt Count 377 (150-450) k/uL Comprehensive Metabolic Panel 11/25/18 Range/Units 06:38 Sodium 131 L (137-145) mmol/L Potassium 3.6 (3.5-5.1) mmol/L Chloride 88 L (98-107) mmol/L Carbon Dioxide 33 H (22-30) mmol/L BUN 13 (7-17) mg/dL Creatinine 0.64 (0.52-1.04) mg/dL Glucose 146 H (74-99) mg/dL Calcium 8.7 (8.4-10.2) mg/dL AST 26 (14-36) U/L ALT 41 (9-52) U/L Alkaline Phosphatase 99 (38-126) U/L Total Protein 6.4 (6.3-8.2) g/dL Albumin 3.5 (3.5-5.0) g/dL Current Medications Generic Name Dose Route Start Last Admin Trade Name Freq PRN Reason Stop Dose Admin Albuterol Sulfate 2.5 mg 11/26/18 08:00 Ventolin Nebulized INHALATION RT-DAILY [facility] Alprazolam 0.25 mg 11/25/18 18:53 Xanax PO BID PRN Anxiety Bupropion HCl 100 mg 11/26/18 09:00 Wellbutrin Sr PO DAILY [facility] Dexamethasone 2 mg 11/26/18 09:00 Hexadrol PO DAILY [facility] Duloxetine HCl 30 mg 11/26/18 09:00 Cymbalta PO DAILY [facility] Ergocalciferol 50,000 unit 12/01/18 09:00 Vitamin D2 PO MO [facility] Famotidine 20 mg 11/25/18 09:00 11/25/18 12:31 Pepcid PO 20 mg BID [facility] Administration Folic Acid 1 mg 11/26/18 12:00 Folic Acid PO DAILY@1200 [facility] Isoproterenol HCl 1,000 mcg/ 255 mls @ 75 mls/hr 11/25/18 20:00 Dextrose/Water IV .Q3H24M [facility] Protocol Per Protocol Dopamine HCl/Dextrose 800 mg/ 500 mls @ 21.94 mls/hr 11/25/18 20:15 IV Solution IV .[id number] [facility] Protocol 5 MCG/KG/MIN Levetiracetam 500 mg 11/25/18 21:00 Keppra PO BID [facility] Miscellaneous Information 1 each 11/25/18 12:19 Magnesium Per Protocol MISCELLANE DAILY PRN Per Protocol Protocol Montelukast Sodium 10 mg 11/26/18 09:00 Singulair PO DAILY [facility] Naloxone HCl 0.2 mg 11/25/18 07:42 Narcan IV Q2M PRN Opioid Reversal Ondansetron HCl 4 mg 11/25/18 07:42 Zofran IVP Q8HR PRN Nausea And Vomiting Prochlorperazine Maleate 5 mg 11/25/18 07:42 11/25/18 13:41 Compazine PO 5 mg Q8HR PRN Administration Nausea And Vomiting Intake and Output 11/25/18 11/25/18 11/25/18 06:59 14:59 22:59 Intake Total 100 300 Output Total 150 300 Balance -50 0 Intake: Intake, IV Titration 100 300 Amount Magnesium Sulfate-D5w Pmx 200 1 gm In Dextrose/Water 1 100ml.bag @ 100 mls/hr IVPB Q1H [facility] Rx#: [id number] Potassium Chloride 10 meq 100 100 In Water For Injection 1 100ml.bag @ 100 mls/hr IVPB Q1H [facility] Rx#: [id number] Output: Urine 150 300 Other: Voiding Method Toilet Bedside Commode # Bowel Movements 1 1 Weight 116.12 kg 117.027 kg Patient Weight 11/26/18 06:59 Weight 117.027 kg 11/25/18 06:38 11/25/18 06:38 EKG Interpretations (text) Initial EKG showed sinus tachycardia with left bundle-branch block. Subsequent EKG showed AV dissociation and junctional rhythm with right bundle branch block Assessment and Plan (1) AV dissociation Current Visit: Yes Status: Acute Code(s): I45.89 - OTHER SPECIFIED CONDUCTION DISORDERS SNOMED Code(s): 08699074 (2) History of brain tumor Current Visit: No Status: Acute Code(s): Z87.898 - PERSONAL HISTORY OF OTHER SPECIFIED CONDITIONS SNOMED Code(s): 854448794 (3) Hypertension Current Visit: No Status: Acute Code(s): I10 - ESSENTIAL (PRIMARY) HYPERTENSION SNOMED Code(s): 02068708 (4) Left bundle branch block Current Visit: No Status: Acute Code(s): I44.7 - LEFT BUNDLE-BRANCH BLOCK, UNSPECIFIED SNOMED Code(s): 00358261 Plan: Will proceed with temporary pacemaker implantation. We'll get an echocardiogram. Continue to follow cardiac enzymes studies. Further evaluate her symptoms of nausea and diarrhea. May proceed with permanent pacemaker implantation
[2018-11-25] MEDS ORDERED: LIDOCAINE 1% INJ 10MG/ML (20 ML MDV) SQ ONE (21:09)
[2018-11-25 21:10] LABS: VBG PH 7.33 (7.31-7.41)
[2018-11-25 21:10] LABS: Basophils % (A) 0 %; Eosinophils # (A) 0.1 k/uL (0-0.7); Eosinophils % (A) 0 %; HCT 35.5 % (34.0-46.0); HGB 11.2 gm/dL (11.4-16.0); Lymphocytes # (A) 2.2 k/uL (1.0-4.8); Lymphocytes % (A) 15 %; MCH 27.8 pg (25.0-35.0); MCHC 31.5 g/dL (31.0-37.0); MCV 88.2 fL (80.0-100.0); Mean Platelet Volume 7.3; Monocytes # (A) 0.7 k/uL (0-1.0); Monocytes % (A) 4 %; Neutrophils # (A) 12.2 k/uL (1.3-7.7); Neutrophils % (A) 80 %; Platelet Count 300 k/uL (150-450); RBC 4.02 m/uL (3.80-5.40); RDW 14.6 % (11.5-15.5); WBC 15.4 k/uL (3.8-10.6)
[2018-11-25] MEDS ORDERED: MIDAZOLAM 2 MG/2 ML VIAL IV ONE (21:16)
[2018-11-25] MEDS ORDERED: SODIUM CHLORIDE 0.9% 500 ML 500 ML IV ONE (21:20)
[2018-11-25 21:27] LABS: Albumin 3.3 g/dL (3.5-5.0); Calcium 8.7 mg/dL (8.4-10.2); Potassium 4.1 mmol/L (3.5-5.1); Total Bilirubin 1.5 mg/dL (0.2-1.3)
[2018-11-25] MEDS ORDERED: NOREPINEPHRINE 4 MG in SODIUM CHLORIDE 0.9% 250 ML IV ONE (21:28)
[2018-11-25] MEDS ORDERED: SODIUM BICARB 8.4% 50 ML SYR (1 MEQ/ML) IV ONE (21:29)
[2018-11-25 21:40] LABS: ABG PCO2 20 mmHg (35-45)
[2018-11-25] MEDS ORDERED: IOPAMIDOL-370 125ML BTL INJ ONE (21:40)
[2018-11-25 21:41] LABS: ABG Base Excess 1.4 mmol/L; ABG HCO3 21 mmol/L (21-25); ABG PO2 >400 mmHg (83-108)
[2018-11-25] MEDS ORDERED: RX INFO: IV CONTRAST WAS GIVEN 1 EACH MISC MISCELLANE PRN (21:43)
--- NOTE | 2018-11-25 21:51 | P.PCN ---
Date of Procedure: 11/25/18 Preoperative Diagnosis: High degree AV block with AV dissociation and episodes of syncope Postoperative Diagnosis: The same Procedure(s) Performed: Temporary pacemaker implantation Description of Procedure: This is 73-year-old female is admitted to the hospital with nausea vomiting and diarrhea with initial EKG showing sinus tachycardia with left bundle-branch block. Later on. Patient developed A-V dissociation with intentional rhythms with adequate blood pressures. Patient was restless and moving and was felt not a good candidate for temporary pacemaker. External pacemaker was standby. Patient developed high degree AV block with long pauses requiring external pacemaker. Patient was subsequently intubated and sedated. She is advised to have a temporary pacemaker and brought to the forestry laborer. Consent was obtained from family. Procedure: Patient was prepped and draped in the usual fashion. The right groin is infiltrated with lidocaine. Right femoral vein was entered and a 6- Mexican sheath was left in place. A 5-Mexican balloontipped temporary pacemaker was advanced and was placed in the right ventricular apical region. Satisfactory position was obtained. Pacemaker was set at a rate of 60 and output of 3. The sheath was sutured to the skin with stay silk suture area did Final impression: Successful implantation of temporary pacemaker.
--- NOTE | 2018-11-25 21:56 | P.PCN ---
Date of Procedure: 11/25/18 Preoperative Diagnosis: Baseline left bundle-branch block with high degree AV block and borderline troponin elevation Postoperative Diagnosis: Normal coronary arteries Procedure(s) Performed: Left heart catheterization without left ventriculography Description of Procedure: HISTORY: This patient is admitted to the hospital with nausea vomiting and initial EKG showing sinus rhythm with left bundle-branch block. Subsequently she developed high degree AV block and syncope episodes. Troponin was borderline elevated. Cardiac cath is recommended to rule out any underlying ischemic heart disease. CONSENT:I have discussed the risks, benefits and alternative therapies for the above-mentioned procedure and for both sedation/analgesia as well as necessary blood product administration, if indicated, as they pertain to this patient. The patient has indicated understanding and acceptance of the risks and procedures discussed. PROCEDURE: Patient was brought to the lab in a fasting state. Patient was given some IV sedation. The right groin is infiltrated with lidocaine and right femoral artery was entered using Seldinger technique. A 6-Belarusian catheter was left in place and selective coronary arteriography was performed. Patient tolerated the procedure well. No immediate complications were noted and patient was transferred to ICU with sheath in place, both in the right femoral artery and right femoral vein. Conscious Sedation: Versed 1mg Fentanyl [] g Duration 26minutes HEMODYNAMICS: The aortic pressure is about 60-70 systolic. There is a gradient of about 10-15 across the aortic valve. The left ventricle end-diastolic pressure is 20 SELECTIVE CORONARY ARTERIOGRAPHY: LEFT MAIN: Normal length and patent THE LEFT ANTERIOR DESCENDING CORONARY ARTERY:. This is a moderate caliber vessel giving a to small septal and diagonal branches. The LAD and its branches are free of occlusive disease. THE LEFT CIRCUMFLEX AND IS CORONARY ARTERY: This is a moderate caliber vessel and nondominant and free of any occlusive disease THE RIGHT CORONARY ARTERY:. This is a dominant vessel giving rise to good-sized PDA and small PLV branch. Free of any occlusive disease LEFT VENTRICULOGRAPHY:. Not performed FINAL IMPRESSION:, Normal coronary arteries. PLAN: Medical therapy and risk factor modification PROGNOSIS:. Guarded
[2018-11-25] MEDS: NOREPINEPHRINE 16 MG in SODIUM CHLORIDE 0.9% 250 ML IV SCH (22:00)
[2018-11-25] MEDS: ISOPROTERENOL 1,000 MCG in DEXTROSE 5% IN WATER 250 ML IV SCH ×2 (22:47)
--- NOTE | 2018-11-25 23:02 | P.HPIM ---
History of Present Illness H&P Date: 11/25/18 (Seen and evaluated examined multiple times today) Chief Complaint: Persistent nausea and not feeling well for over 24 hours 73-year-old female who was seen evaluated examined on medical floor, this patient admitted into the hospital earlier this morning with problems associated with nauseous feeling and nasopharyngeal swab for influenza A and B were both negative, her symptoms started a day before she has not been taking able to take anything by mouth she is not taking her home medication as well, patient has been having looser stool as well overall symptoms appeared to be like gastroenteritis however no bloody diarrhea has been noted, patient denies any emesis denies any abdominal pain and on specific questioning denies any chest pain or radiation of pain, she does have a history of COPD and chronic persistent asthma, patient also has a history of hypertension hypertensive cardiovascular disease and advanced steroid-dependent rheumatoid arthritis, she has not been formally evaluated for sleep disorder breathing and sleep apnea, on medical floor patient was found to be bradycardic which was a significant change compared to her admit vitals, patient was however hemodynamically stable but due to significant bradycardia transferred to the selective care/ICU if no bed is available consult with cardiology has been also initiated, they felt that patient to be monitored and observed dopamine/dopamine and check agents were not initiated as patient was hemodynamically stable and bradycardia thought to be related to exaggerated vagal response, review of the data also revealed that patient is hyponatremic, initial EKG revealed sinus tachycardia with left bundle branch block and currently developed high degree AV block, patient failed to capture external pacemaker eventually due to severe restlessness and significant bradycardia was intubated and cardiovascular services took her to the Lab at transvenous temporary pacemaker has been inserted through the groin, and A-line has been inserted by the anesthesia, patient only has a single lumen groin catheter through which transvenous pacemaker is present being infused with 10 mics of levo fed as well as dopamine to keep map around 65-70 patient is on full ventilator support initially patient was place on assist control rate of 20 tidal volume of 505 of PEEP 100% oxygen now rate is being cut down to 14 PEEP is 5 FiO2 Is Lowered down to 50%, Review of Systems ROS unobtainable: due to endotracheal tube All systems: negative 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 History of Any Multi-Drug Resistant Organisms: None Reported Past Surgical History: Cholecystectomy, Tonsillectomy Past Anesthesia/Blood Transfusion Reactions: No Reported Reaction Past Psychological History: Anxiety, Depression Smoking Status: Former smoker Past Alcohol Use History: None Reported Past Drug Use History: None Reported - Past Family History Mother Family Medical History: Asthma Additional Family Medical History / Comment(s): depression Father Additional Family Medical History / Comment(s): ETOH Medications and Allergies Home Medications Medication Instructions Recorded Confirmed Type Albuterol Nebulized [Ventolin 2.5 mg INHALATION RT-DAILY 03/22/17 11/25/18 History Nebulized] Aspirin EC [Ecotrin Low Dose] 81 mg PO HS 03/22/17 11/25/18 History Dexamethasone [Hexadrol] 2 mg PO DAILY 03/22/17 11/25/18 History Ergocalciferol [Vitamin D2 50,000 unit PO MO 03/22/17 11/25/18 History (DRISDOL)] Furosemide [Lasix] 40 mg PO DAILY 03/22/17 11/25/18 History Montelukast [Singulair] 10 mg PO DAILY 03/22/17 11/25/18 History Nitroglycerin Sl Tabs [Nitrostat] 0.4 mg SUBLINGUAL Q5M PRN 03/22/17 11/25/18 History levETIRAcetam [Keppra] 500 mg PO BID 03/22/17 11/25/18 History Furosemide [Lasix] 20 mg PO HS 07/29/17 11/25/18 History ALPRAZolam [Xanax] 0.25 mg PO BID PRN 03/24/18 11/25/18 History Esomeprazole Magnesium [NexIUM] 40 mg PO BID 03/24/18 11/25/18 History Folic Acid 1 mg PO DAILY 03/24/18 11/25/18 History DULoxetine HCL [Cymbalta] 30 mg PO DAILY 11/25/18 11/25/18 History buPROPion HCL [Wellbutrin Sr] 100 mg PO DAILY 11/25/18 11/25/18 History Allergies Allergy/AdvReac Type Severity Reaction Status Date / Time Penicillins Allergy Rash/Hives Verified 11/25/18 08:13 Physical Exam Vitals: Vital Signs Temp Pulse Pulse Resp BP BP Pulse Ox 11/25/18 20:00 42 L 23 133/31 95 11/25/18 19:00 40 L 20 104/50 95 11/25/18 18:00 39 L 127/44 96 11/25/18 17:00 38 L 97 11/25/18 16:00 98.1 F 37 L 42 L 23 127/44 98 11/25/18 15:00 39 L 25 H 96 11/25/18 14:00 38 L 20 96 11/25/18 13:50 40 L 26 H 134/48 94 L 11/25/18 13:44 40 L 26 H 95 11/25/18 11:20 42 L 138/65 11/25/18 10:43 98.0 F 98 22 132/82 97 11/25/18 08:00 98.6 F 95 22 124/86 95 11/25/18 06:10 98.4 F 78 22 119/72 97 Intake and Output 11/25/18 11/25/18 11/25/18 06:59 14:59 22:59 Intake Total 100 379 Output Total 150 300 Balance -50 79 Intake: IV 79 Intake, IV Titration 100 300 Amount Magnesium Sulfate-D5w Pmx 200 1 gm In Dextrose/Water 1 100ml.bag @ 100 mls/hr IVPB Q1H HEIKE Rx#: [id number] Potassium Chloride 10 meq 100 100 In Water For Injection 1 100ml.bag @ 100 mls/hr IVPB Q1H HEIKE Rx#: [id number] Output: Urine 150 300 Other: Voiding Method Toilet Bedside Commode # Bowel Movements 1 1 Weight 116.12 kg 117.027 kg - Constitutional General appearance: average body habitus, disheveled, no acute distress, obese - EENT Eyes: normal appearance Ears: bilateral: normal - Neck Neck: normal ROM Carotids: bilateral: upstroke normal Thyroid: bilateral: normal size - Respiratory Respiratory: bilateral: CTA - Cardiovascular Heart sounds: normal: S1, S2 - Gastrointestinal General gastrointestinal: decreased bowel sounds, distended, soft - Integumentary Integumentary: normal turgor - Neurologic Sedated with propofol drip - Musculoskeletal Musculoskeletal: gait normal, generalized weakness, strength equal bilaterally - Psychiatric Psychiatric: A&O x's 3, appropriate affect somewhat anxious and agitated prior to intubation Results CBC & Chem 7: 11/25/18 20:46 11/25/18 20:46 Labs: Abnormal Lab Results - Last 24 Hours (Table) 11/25/18 11/25/18 11/25/18 Range/Units 06:38 06:38 06:38 WBC 13.0 H (3.8-10.6) k/uL Hgb (11.4-16.0) gm/dL Neutrophils # 10.1 H (1.3-7.7) k/uL APTT 17.9 L (22.0-30.0) sec ABG pH (7.35-7.45) ABG pCO2 (35-45) mmHg ABG pO2 (83-108) mmHg ABG O2 Saturation (94-97) % VBG pCO2 (37-51) mmHg VBG HCO3 (24-28) mmol/L Sodium 131 L (137-145) mmol/L Chloride 88 L (98-107) mmol/L Carbon Dioxide 33 H (22-30) mmol/L BUN (7-17) mg/dL Creatinine (0.52-1.04) mg/dL Glucose 146 H (74-99) mg/dL POC Glucose (mg/dL) (75-99) mg/dL Plasma Lactic Acid Margarito (0.7-2.0) mmol/L Total Bilirubin (0.2-1.3) mg/dL Troponin I (0.000-0.034) ng/mL Total Protein (6.3-8.2) g/dL Albumin (3.5-5.0) g/dL Urine Protein (Negative) Hyaline Casts (0-2) /lpf Urine Mucus (None) /hpf 11/25/18 11/25/18 11/25/18 Range/Units 11:12 18:02 19:22 WBC (3.8-10.6) k/uL Hgb (11.4-16.0) gm/dL Neutrophils # (1.3-7.7) k/uL APTT (22.0-30.0) sec ABG pH (7.35-7.45) ABG pCO2 (35-45) mmHg ABG pO2 (83-108) mmHg ABG O2 Saturation (94-97) % VBG pCO2 (37-51) mmHg VBG HCO3 (24-28) mmol/L Sodium (137-145) mmol/L Chloride (98-107) mmol/L Carbon Dioxide (22-30) mmol/L BUN (7-17) mg/dL Creatinine (0.52-1.04) mg/dL Glucose (74-99) mg/dL POC Glucose (mg/dL) 151 H (75-99) mg/dL Plasma Lactic Acid Margarito (0.7-2.0) mmol/L Total Bilirubin (0.2-1.3) mg/dL Troponin I 0.049 H* (0.000-0.034) ng/mL Total Protein (6.3-8.2) g/dL Albumin (3.5-5.0) g/dL Urine Protein 1+ H (Negative) Hyaline Casts 8 H (0-2) /lpf Urine Mucus Rare H (None) /hpf 11/25/18 11/25/18 11/25/18 Range/Units 20:00 20:45 20:46 WBC (3.8-10.6) k/uL Hgb (11.4-16.0) gm/dL Neutrophils # (1.3-7.7) k/uL APTT (22.0-30.0) sec ABG pH (7.35-7.45) ABG pCO2 (35-45) mmHg ABG pO2 (83-108) mmHg ABG O2 Saturation (94-97) % VBG pCO2 55 H (37-51) mmHg VBG HCO3 29 H (24-28) mmol/L Sodium 126 L (137-145) mmol/L Chloride 85 L (98-107) mmol/L Carbon Dioxide (22-30) mmol/L BUN 18 H (7-17) mg/dL Creatinine 1.25 H (0.52-1.04) mg/dL Glucose 245 H (74-99) mg/dL POC Glucose (mg/dL) (75-99) mg/dL Plasma Lactic Acid Margarito 5.3 H* (0.7-2.0) mmol/L Total Bilirubin 1.5 H (0.2-1.3) mg/dL Troponin I (0.000-0.034) ng/mL Total Protein 6.0 L (6.3-8.2) g/dL Albumin 3.3 L (3.5-5.0) g/dL Urine Protein (Negative) Hyaline Casts (0-2) /lpf Urine Mucus (None) /hpf 11/25/18 11/25/18 Range/Units 20:46 21:28 WBC 15.4 H (3.8-10.6) k/uL Hgb 11.2 L (11.4-16.0) gm/dL Neutrophils # 12.2 H (1.3-7.7) k/uL APTT (22.0-30.0) sec ABG pH 7.63 H* (7.35-7.45) ABG pCO2 20 L (35-45) mmHg ABG pO2 >400 H (83-108) mmHg ABG O2 Saturation 100.0 H (94-97) % VBG pCO2 (37-51) mmHg VBG HCO3 (24-28) mmol/L Sodium (137-145) mmol/L Chloride (98-107) mmol/L Carbon Dioxide (22-30) mmol/L BUN (7-17) mg/dL Creatinine (0.52-1.04) mg/dL Glucose (74-99) mg/dL POC Glucose (mg/dL) (75-99) mg/dL Plasma Lactic Acid Margarito (0.7-2.0) mmol/L Total Bilirubin (0.2-1.3) mg/dL Troponin I (0.000-0.034) ng/mL Total Protein (6.3-8.2) g/dL Albumin (3.5-5.0) g/dL Urine Protein (Negative) Hyaline Casts (0-2) /lpf Urine Mucus (None) /hpf Microbiology - Last 24 Hours (Table) 11/25/18 19:22 Urine Culture - Preliminary Urine,Catheterized 11/25/18 20:15 Sputum Culture - Preliminary Sputum Chest x-ray: report reviewed, image reviewed Thrombosis Risk Factor Assmnt - Choose All That Apply Any of the Below Risk Factors Present?: Yes Each Factor Represents 1 point: Obesity (BMI >25) Other Risk Factors: Yes Each Risk Factor Represents 2 Points: Age 61-74 years Other congenital or acquired thrombophilia - If yes, enter type in comment: No Thrombosis Risk Factor Assessment Total Risk Factor Score: 3 Thrombosis Risk Factor Assessment Level: Moderate Risk Assessment and Plan Assessment: Severe complete third-degree high-grade AV block Acute respiratory failure related to above Lactic acidosis secondary due to due to poor perfusion and cardiogenic shock Hyponatremia Acute renal failure stage III Suspect component of shock liver Sirs-like process Plan: Continue ventilator support ventilator adjustment as per arterial blood gases Patient would need a central line Continue gentle hydration Status post temporary transvenous pacemaker Haji culture including urine and blood and sputum Further recommendations pending plan of care as per clinical response of the patient Critical care time spent 75 minutes Time with Patient: Greater than 30
--- NOTE | 2018-11-26 00:01 | XR ---
EXAMINATION TYPE: XR chest 1V portable DATE OF EXAM: 11/25/2018 COMPARISON: 11/25/2018 HISTORY: Check tube placement TECHNIQUE: Single frontal view of the chest is obtained. FINDINGS: Endotracheal tube is 3 cm from the omayra. There are pleural effusions and atelectasis at the lung bases. There is no gross heart failure. Nasogastric tube is present. IMPRESSION: Pleural effusion and atelectasis at the lung bases the same or worse than last exam toda y at 7:00 AM. No heart failure.
[2018-11-26] MEDS: levETIRAcetam 500 MG TAB PO SCH ×3 (01:27→20:03)
[2018-11-26] MEDS: FAMOTIDINE 20 MG TAB PO SCH ×2 (01:27→09:00)
[2018-11-26] MEDS: ISOPROTERENOL 1,000 MCG in DEXTROSE 5% IN WATER 250 ML IV SCH ×4 (01:28→11:55)
[2018-11-26 01:48] LABS: Creatine Kinase MB 2.4 ng/mL (0.0-2.4)
[2018-11-26 01:57] LABS: Troponin I 0.199 ng/mL (0.000-0.034)
--- NOTE | 2018-11-26 02:17 | P.PCN ---
Date of Procedure: 11/26/18 Preoperative Diagnosis: High degree complete heart block, cardiogenic shock Postoperative Diagnosis: As above Procedure(s) Performed: Central line placement, under ultrasound guidance placement of CVC into right internal jugular wire anterior approach Anesthesia: regional Surgeon: Saleem Diaz Estimated Blood Loss (ml): 1 Pathology: none sent Condition: critical Disposition: ICU Indications for Procedure: As above Operative Findings: As below Description of Procedure: Patient prepared and draped in a usual fashion informed consent obtained from the patient's family, ultrasound was utilized to nik the area of anterior internal jugular vein using modified Seldinger technique triple-lumen catheter inserted into right internal jugular vein wire anterior approach all 3 ports flushed patient tolerated procedure well no complication noted chest x-ray pending
--- NOTE | 2018-11-26 02:35 | XR ---
EXAMINATION TYPE: XR chest 1V DATE OF EXAM: 11/26/2018 COMPARISON: Yesterday HISTORY: Check line placement TECHNIQUE: Single frontal view of the chest is obtained. FINDINGS: There is right jugular catheter with tip in the lower superior vena cava. No pneumothorax. There is blunting of costophrenic angles and patchy density at the lung bases. Endotracheal tube is 3.5 cm from the omayra. Nasogastric tube is in good position. There are old left-sided healed rib fra ctures. IMPRESSION: Pleural effusions and basilar pulmonary infiltrates and atelectasis unchanged.
[2018-11-26] MEDS: PROPOFOL 1,000 MG in EMPTY BAG 1 BAG IV SCH ×4 (03:25→18:30)
[2018-11-26 04:09] LABS: ABG Base Excess 7.1 mmol/L; ABG HCO3 32 mmol/L (21-25); ABG Oxygen Saturation 96.5 % (94-97); ABG PCO2 54 mmHg (35-45); ABG PH 7.38 (7.35-7.45); ABG PO2 98 mmHg (83-108); ABG TCO2 34 mmol/L (19-24)
[2018-11-26 06:37] LABS: Albumin 2.8 g/dL (3.5-5.0); Magnesium 2.3 mg/dL (1.6-2.3); Potassium 3.3 mmol/L (3.5-5.1); Total Bilirubin 1.3 mg/dL (0.2-1.3); Total Protein 5.5 g/dL (6.3-8.2)
[2018-11-26 06:49] LABS: Partial Thromboplastin Time 22.2 sec (22.0-30.0); Prothrombin Time 10.4 sec (9.0-12.0)
[2018-11-26 06:55] LABS: Glucose,Whole Blood 184 mg/dL (75-99)
[2018-11-26] MEDS ORDERED: Potassium Replacement Protocol 1 EACH MISC MISCELLANE PRN (07:27)
[2018-11-26 07:38] LABS: Basophils # (A) 0.1 k/uL (0-0.2); Basophils % (A) 0 %; Eosinophils # (A) 0.1 k/uL (0-0.7); Eosinophils % (A) 1 %; HCT 35.3 % (34.0-46.0); HGB 11.4 gm/dL (11.4-16.0); Lymphocytes # (A) 1.2 k/uL (1.0-4.8); Lymphocytes % (A) 10 %; MCH 27.6 pg (25.0-35.0); MCHC 32.3 g/dL (31.0-37.0); MCV 85.4 fL (80.0-100.0); Mean Platelet Volume 7.6; Monocytes # (A) 0.8 k/uL (0-1.0); Monocytes % (A) 7 %; Neutrophils # (A) 10.4 k/uL (1.3-7.7); Neutrophils % (A) 81 %; Platelet Count 338 k/uL (150-450); RBC 4.13 m/uL (3.80-5.40); RDW 14.6 % (11.5-15.5); WBC 12.8 k/uL (3.8-10.6)
[2018-11-26] MEDS: ALBUTEROL NEBULIZED 2.5 MG/3 ML INHALATION SCH (08:13)
[2018-11-26] MEDS: buPROPion SR 100 MG TABLET.ER PO SCH (08:50)
[2018-11-26] MEDS: DULoxetine HCL 30 MG CAPSULE.DR PO SCH (08:50)
[2018-11-26] MEDS: DOPamine DRIP 800 MG in DEXTROSE/WATER 1 500ML.BAG IV SCH ×2 (08:57→19:58)
[2018-11-26] MEDS: MONTELUKAST 10 MG TAB PO SCH (08:59)
[2018-11-26] MEDS: POTASSIUM BICARBONATE/CIT AC 20 MEQ TABLET.EFF NG-TUBE SCH ×2 (08:59→10:23)
[2018-11-26] MEDS: CHLORHEXIDINE GLUCONATE 15 ML CUP MUCOUS MEM SCH ×2 (08:59→20:03)
[2018-11-26] MEDS: DEXAMETHASONE 2 MG TAB PO SCH (09:00)
--- NOTE | 2018-11-26 09:03 | P.PN ---
Progress Note - Text Patient intubated. Yesterday she went into complete heart block and was symptomatic and Dr. Mcnamara implanted temporary pacemaker. She is febrile 101.3F heart rate 60 beats a minute blood pressure 116/47 mmHg Breath sounds are reduced bilaterally Heart sounds are soft Abdomen is soft Labs are reviewed white count 12.8 thousand. Sodium low at 127, potassium low at 3.3, BUN 20, creatinine 1.25, lactic acid 3.0 Borderline troponin of 0.2 noted Troponin 0.02, 0.05 and 0.2, slight rising trend Impression Symptomatic complete heart block with bradycardia, severe with hypoperfusion Status post TVP yesterday by Dr. Mcnamara Suggest Continue TVP management for now and further recommendations regarding permanent pacemaker will follow
--- NOTE | 2018-11-26 10:21 | ECHOF ---
Referral Reason:complete heart block MEASUREMENTS -------- HEIGHT: 160.0 cm WEIGHT: 120.2 kg BP: IVSd: 1.2 cm (0.6 - 1.1) LVIDd: 4.1 cm (3.9 - 5.3) LVPWd: 1.4 cm (0.6 - 1.1) IVSs: 1.5 cm LVIDs: 2.3 cm LVPWs: 1.7 cm Ao Diam: 3.3 cm (2.0 - 3.7) AV Cusp: 1.9 cm (1.5 - 2.6) LA Diam: 4.8 cm (2.7 - 3.8) MV E Yony: 0.59 m/s MV DecT: 244 ms MV A Yony: 0.66 m/s MV E/A Ratio: 0.88 AV maxP.97 mmHg AV meanP.50 mmHg RAP: 5.00 mmHg RVSP: 14.84 mmHg FINDINGS -------- Paced rhythm. Morbid Obesity This was a techncally difficult study with suboptimal views, , Lumason utilized for enhancement of im ages. The left ventricular size is normal. There is mild concentric left ventricular hypertrophy. Overa ll left ventricular systolic function is low-normal with, an EF between 50 - 55 %. The right ventricle is normal in size. The left atrium is moderately dilated. The right atrial size is normal. 5.0mg OF Lumason UTLIZED: 2 OR MORE WALL SEGMENTS NOT VISUALIZED. The aortic valve was not well visualized. There is mild aortic stenosis present. Peak/mean gradie nt across the Aortic Valve is 19.97mmHg / 10.50mmHg. Mild mitral annular calcification present. Mild mitral regurgitation is present. Mild tricuspid regurgitation present. There is no evidence of pulmonary hypertension. The right v entricular systolic pressure, as measured by Doppler, is 14.84mmHg. The pulmonic valve was not well visualized. Echo free space represents a pericardial fat pad. CONCLUSIONS -------- 1. Morbid Obesity 2. This was a techncally difficult study with suboptimal views, , Lumason utilized for enhancement of images. 3. The left ventricular size is normal. 4. There is mild concentric left ventricular hypertrophy. 5. Overall left ventricular systolic function is low-normal with, an EF between 50 - 55 %. 6. The right ventricle is normal in size. 7. The left atrium is moderately dilated. 8. The right atrial size is normal. 9. 5.0mg OF Lumason UTLIZED: 2 OR MORE WALL SEGMENTS NOT VISUALIZED. 10. The aortic valve was not well visualized. 11. There is mild aortic stenosis present. 12. Peak/mean gradient across the Aortic Valve is 19.97mmHg / 10.50mmHg. 13. Mild mitral annular calcification present. 14. Mild mitral regurgitation is present. 15. Mild tricuspid regurgitation present. 16. There is no evidence of pulmonary hypertension. 17. The right ventricular systolic pressure, as measured by Doppler, is 14.84mmHg. 18. The pulmonic valve was not well visualized. 19. Echo free space represents a pericardial fat pad. DIRECT SALES CONSULTANT: Mireya Ragsdale RDCS
[2018-11-26] MEDS: NOREPINEPHRINE 16 MG in SODIUM CHLORIDE 0.9% 250 ML IV SCH (10:22)
[2018-11-26 11:04] LABS: Urine Alcohol Negative (Negative); Urine Barbiturate Negative (Negative); Urine Cocaine Negative (Negative); Urine Methadone Negative (Negative); Urine Opiates Negative (Negative); Urine Phencyclidine Negative (Negative)
[2018-11-26 11:38] LABS: Hemoglobin A1C 6.4 % (4.0-6.0)
[2018-11-26 11:52] LABS: Glucose,Whole Blood 187 mg/dL (75-99)
[2018-11-26] MEDS: FOLIC ACID 1 MG TAB PO SCH (14:14)
--- NOTE | 2018-11-26 14:31 | P.PN ---
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, acute respiratory failure, lactic acidosis, hyponatremia, aspiration pneumonia, acute renal failure stage III, sepsis/Sirs-like process, status post temporary transvenous pacemaker insertion 11/26/2018 patient seen eval reexamined during the rounds clinically patient remains sedated with propofol drip currently patient is on 20 mics able to come down however hemodynamic status remains marginal, patient require 100% pacing as without heart rate drops down to less than 30, patient is also on levo fed drip 35 mics, and dopamine drip 10 mics, currently maintenance IV fluids 50 mL an hour being given, patient has been found to be hypokalemic potassium has been replaced, chest x-ray revealed a possible developing left lower lobe infiltrate cannot be excluded along with small effusion, on assist control rate of 12 breathing 12 tidal volume of 500, with PEEP of 5, FiO2 is down to 40%, chest x-ray reviewed laboratory data reviewed, critical care time spent 40 minutes 73-year-old female who was seen evaluated examined on medical floor, this patient admitted into the hospital earlier this morning with problems associated with nauseous feeling and nasopharyngeal swab for influenza A and B were both negative, her symptoms started a day before she has not been taking able to take anything by mouth she is not taking her home medication as well, patient has been having looser stool as well overall symptoms appeared to be like gastroenteritis however no bloody diarrhea has been noted, patient denies any emesis denies any abdominal pain and on specific questioning denies any chest pain or radiation of pain, she does have a history of COPD and chronic persistent asthma, patient also has a history of hypertension hypertensive cardiovascular disease and advanced steroid-dependent rheumatoid arthritis, she has not been formally evaluated for sleep disorder breathing and sleep apnea, on medical floor patient was found to be bradycardic which was a significant change compared to her admit vitals, patient was however hemodynamically stable but due to significant bradycardia transferred to the selective care/ICU if no bed is available consult with cardiology has been also initiated, they felt that patient to be monitored and observed dopamine/dopamine and check agents were not initiated as patient was hemodynamically stable and bradycardia thought to be related to exaggerated vagal response, review of the data also revealed that patient is hyponatremic, initial EKG revealed sinus tachycardia with left bundle branch block and currently developed high degree AV block, patient failed to capture external pacemaker eventually due to severe restlessness and significant bradycardia was intubated and cardiovascular services took her to the Lab at transvenous temporary pacemaker has been inserted through the groin, and A-line has been inserted by the anesthesia, patient only has a single lumen groin catheter through which transvenous pacemaker is present being infused with 10 mics of levo fed as well as dopamine to keep map around 65-70 patient is on full ventilator support initially patient was place on assist control rate of 20 tidal volume of 505 of PEEP 100% oxygen now rate is being cut down to 14 PEEP is 5 FiO2 Is Lowered down to 50%, Objective - Vital Signs Vital signs: Vital Signs Temp 101.3 F H 11/26/18 08:00 Pulse 59 L 11/26/18 14:00 Resp 12 11/26/18 14:00 BP 105/57 11/26/18 14:00 Pulse Ox 100 11/26/18 14:00 Intake & Output 11/25/18 11/26/18 11/26/18 18:59 06:59 18:59 Intake Total 400 932.712 1098.643 Output Total 450 595 335 Balance -50 401.901 955.643 Weight 117.027 kg 120.5 kg Intake: IV 729 410 0.9 650 410 Intake, IV Titration 400 267.901 730.643 Amount DOPamine DRIP 800 mg In 504.254 Dextrose/Water 1 500ml. bag @ 5 MCG/KG/MIN 21.94 mls/hr IV .[id number] [facility] Rx #:[id number] Magnesium Sulfate-D5w Pmx 200 1 gm In Dextrose/Water 1 100ml.bag @ 100 mls/hr IVPB Q1H [facility] Rx#: [id number] Norepinephrine 16 mg In 250.000 93.591 Sodium Chloride 0.9% 250 ml @ Titrate IV .Q0M [facility] Rx#:[id number] Potassium Chloride 10 meq 200 In Water For Injection 1 100ml.bag @ 100 mls/hr IVPB Q1H [facility] Rx#: [id number] Propofol 1,000 mg In 17.901 132.798 Empty Bag 1 bag @ Titrate IV .Q0M [facility] Rx#: [id number] Other 150 Output: Urine 450 595 335 Other: Voiding Method Bedside Commode Indwelling Catheter Indwelling Catheter # Bowel Movements 1 ABP, PAP, CO, CI - Last Documented Arterial Blood Pressure 159/57 - Exam - Constitutional General appearance: average body habitus, disheveled, no acute distress, obese sedated with propofol drip- EENT Eyes: normal appearance Ears: bilateral: normal - Neck Neck: normal ROM Carotids: bilateral: upstroke normal Thyroid: bilateral: normal size - Respiratory Respiratory: bilateral: CTA, decreased breath sound at the bases especially on the left side with bronchial breath sound - Cardiovascular Heart sounds: normal: S1, S2 - Gastrointestinal General gastrointestinal: decreased bowel sounds, distended, soft - Integumentary Integumentary: normal turgor - Neurologic Sedated with propofol drip - Musculoskeletal Musculoskeletal: gait normal, generalized weakness, strength equal bilaterally - Labs CBC & Chem 7: 11/26/18 06:00 11/26/18 06:00 Labs: Abnormal Lab Results - Last 24 Hours (Table) 11/25/18 11/25/18 11/25/18 Range/Units 18:02 19:22 20:00 WBC (3.8-10.6) k/uL Hgb (11.4-16.0) gm/dL Neutrophils # (1.3-7.7) k/uL ABG pH (7.35-7.45) ABG pCO2 (35-45) mmHg ABG pO2 (83-108) mmHg ABG HCO3 (21-25) mmol/L ABG Total CO2 (19-24) mmol/L ABG O2 Saturation (94-97) % VBG pCO2 (37-51) mmHg VBG HCO3 (24-28) mmol/L Sodium (137-145) mmol/L Potassium (3.5-5.1) mmol/L Chloride (98-107) mmol/L BUN (7-17) mg/dL Creatinine (0.52-1.04) mg/dL Glucose (74-99) mg/dL POC Glucose (mg/dL) (75-99) mg/dL Hemoglobin A1c (4.0-6.0) % Plasma Lactic Acid Margarito 5.3 H* (0.7-2.0) mmol/L Calcium (8.4-10.2) mg/dL Total Bilirubin (0.2-1.3) mg/dL Troponin I 0.049 H* (0.000-0.034) ng/mL Total Protein (6.3-8.2) g/dL Albumin (3.5-5.0) g/dL Urine Protein 1+ H (Negative) Hyaline Casts 8 H (0-2) /lpf Urine Mucus Rare H (None) /hpf 11/25/18 11/25/18 11/25/18 Range/Units 20:45 20:46 20:46 WBC 15.4 H (3.8-10.6) k/uL Hgb 11.2 L (11.4-16.0) gm/dL Neutrophils # 12.2 H (1.3-7.7) k/uL ABG pH (7.35-7.45) ABG pCO2 (35-45) mmHg ABG pO2 (83-108) mmHg ABG HCO3 (21-25) mmol/L ABG Total CO2 (19-24) mmol/L ABG O2 Saturation (94-97) % VBG pCO2 55 H (37-51) mmHg VBG HCO3 29 H (24-28) mmol/L Sodium 126 L (137-145) mmol/L Potassium (3.5-5.1) mmol/L Chloride 85 L (98-107) mmol/L BUN 18 H (7-17) mg/dL Creatinine 1.25 H (0.52-1.04) mg/dL Glucose 245 H (74-99) mg/dL POC Glucose (mg/dL) (75-99) mg/dL Hemoglobin A1c (4.0-6.0) % Plasma Lactic Acid Margarito (0.7-2.0) mmol/L Calcium (8.4-10.2) mg/dL Total Bilirubin 1.5 H (0.2-1.3) mg/dL Troponin I (0.000-0.034) ng/mL Total Protein 6.0 L (6.3-8.2) g/dL Albumin 3.3 L (3.5-5.0) g/dL Urine Protein (Negative) Hyaline Casts (0-2) /lpf Urine Mucus (None) /hpf 11/25/18 11/26/18 11/26/18 Range/Units 21:28 00:42 00:42 WBC (3.8-10.6) k/uL Hgb (11.4-16.0) gm/dL Neutrophils # (1.3-7.7) k/uL ABG pH 7.63 H* (7.35-7.45) ABG pCO2 20 L (35-45) mmHg ABG pO2 >400 H (83-108) mmHg ABG HCO3 (21-25) mmol/L ABG Total CO2 (19-24) mmol/L ABG O2 Saturation 100.0 H (94-97) % VBG pCO2 (37-51) mmHg VBG HCO3 (24-28) mmol/L Sodium (137-145) mmol/L Potassium (3.5-5.1) mmol/L Chloride (98-107) mmol/L BUN (7-17) mg/dL Creatinine (0.52-1.04) mg/dL Glucose (74-99) mg/dL POC Glucose (mg/dL) (75-99) mg/dL Hemoglobin A1c (4.0-6.0) % Plasma Lactic Acid Margarito 3.0 H* (0.7-2.0) mmol/L Calcium (8.4-10.2) mg/dL Total Bilirubin (0.2-1.3) mg/dL Troponin I 0.199 H* (0.000-0.034) ng/mL Total Protein (6.3-8.2) g/dL Albumin (3.5-5.0) g/dL Urine Protein (Negative) Hyaline Casts (0-2) /lpf Urine Mucus (None) /hpf 11/26/18 11/26/18 11/26/18 Range/Units 04:04 06:00 06:00 WBC 12.8 H (3.8-10.6) k/uL Hgb (11.4-16.0) gm/dL Neutrophils # 10.4 H (1.3-7.7) k/uL ABG pH (7.35-7.45) ABG pCO2 54 H (35-45) mmHg ABG pO2 (83-108) mmHg ABG HCO3 32 H (21-25) mmol/L ABG Total CO2 34 H (19-24) mmol/L ABG O2 Saturation (94-97) % VBG pCO2 (37-51) mmHg VBG HCO3 (24-28) mmol/L Sodium 127 L (137-145) mmol/L Potassium 3.3 L (3.5-5.1) mmol/L Chloride 88 L (98-107) mmol/L BUN 20 H (7-17) mg/dL Creatinine 1.25 H (0.52-1.04) mg/dL Glucose 178 H (74-99) mg/dL POC Glucose (mg/dL) (75-99) mg/dL Hemoglobin A1c (4.0-6.0) % Plasma Lactic Acid Margarito (0.7-2.0) mmol/L Calcium 8.0 L (8.4-10.2) mg/dL Total Bilirubin (0.2-1.3) mg/dL Troponin I (0.000-0.034) ng/mL Total Protein 5.5 L (6.3-8.2) g/dL Albumin 2.8 L (3.5-5.0) g/dL Urine Protein (Negative) Hyaline Casts (0-2) /lpf Urine Mucus (None) /hpf 11/26/18 11/26/18 11/26/18 Range/Units 06:00 06:43 11:40 WBC (3.8-10.6) k/uL Hgb (11.4-16.0) gm/dL Neutrophils # (1.3-7.7) k/uL ABG pH (7.35-7.45) ABG pCO2 (35-45) mmHg ABG pO2 (83-108) mmHg ABG HCO3 (21-25) mmol/L ABG Total CO2 (19-24) mmol/L ABG O2 Saturation (94-97) % VBG pCO2 (37-51) mmHg VBG HCO3 (24-28) mmol/L Sodium (137-145) mmol/L Potassium (3.5-5.1) mmol/L Chloride (98-107) mmol/L BUN (7-17) mg/dL Creatinine (0.52-1.04) mg/dL Glucose (74-99) mg/dL POC Glucose (mg/dL) 184 H 187 H (75-99) mg/dL Hemoglobin A1c 6.4 H (4.0-6.0) % Plasma Lactic Acid Margarito (0.7-2.0) mmol/L Calcium (8.4-10.2) mg/dL Total Bilirubin (0.2-1.3) mg/dL Troponin I (0.000-0.034) ng/mL Total Protein (6.3-8.2) g/dL Albumin (3.5-5.0) g/dL Urine Protein (Negative) Hyaline Casts (0-2) /lpf Urine Mucus (None) /hpf Microbiology - Last 24 Hours (Table) 11/25/18 20:15 Gram Stain - Preliminary Sputum Sputum Culture - Preliminary 11/25/18 19:22 Urine Culture - Preliminary Urine,Catheterized Assessment and Plan Assessment: Left lower lobe aspiration pneumonia Severe sepsis Severe complete third-degree high-grade AV block Acute respiratory failure related to above Lactic acidosis secondary due to due to poor perfusion and cardiogenic shock Hyponatremia Acute renal failure stage III Suspect component of shock liver Sirs-like process Plan: Continue ventilator support ventilator adjustment as per arterial blood gases Patient is a status post central line Continue gentle hydration Status post temporary transvenous pacemaker Haji culture including urine and blood and sputum obtained however given ongoing fever will start treatment with IV antibiotics pending culture results and report Further recommendations pending plan of care as per clinical response of the patient Critical care time spent 40 minutes Time with Patient: Greater than 30
[2018-11-26 18:16] LABS: Glucose,Whole Blood 191 mg/dL (75-99)
[2018-11-26] MEDS: FAMOTIDINE 20 MG/2 ML VIAL IV SCH (20:03)
[2018-11-26] MEDS ORDERED: VANCOMYCIN IV PER PHARMACY 1 EACH MISC MISCELLANE PRN (20:07)
[2018-11-26] MEDS ORDERED: VANCOMYCIN 2,500 MG in SODIUM CHLORIDE 0.9% 500 ML 500 ML IVPB ONE (20:30)
--- NOTE | 2018-11-26 22:07 | P.CONS ---
History of Present Illness - Reason for Consult Consult date: 11/26/18 Nausea, vomiting, diarrhea Requesting physician: Saleem Diaz - Chief Complaint Nausea, vomiting, diarrhea - History of Present Illness the patient is a 73-year-old female with a past medical history significant for congestive heart failure, osteoarthritis, obstructive sleep apnea, meningioma, asthma and depression who presented to the hospital with complaints of one day of nausea, vomiting and diarrhea. Per the patient's she had multiple episodes of nonbloody loose bowel movements with associated nausea and vomiting prior to presentation. The patient does have a known history of reflux for which she takes Nexium therapy. On presentation to the hospital she was found to be in high degree AV block with bradycardia and has subsequently been intubated and sedated with an external pacemaker placed. Currently she is seen in the ICU.of note history has been taken from conversation with the medical team and on review of the electronic medical record as the patient is currently intubated and sedated. Review of Systems REVIEW OF SYSTEMS: unable to obtain in a patient who is currently intubated and sedated. 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 History of Any Multi-Drug Resistant Organisms: None Reported Past Surgical History: Cholecystectomy, Tonsillectomy Past Anesthesia/Blood Transfusion Reactions: No Reported Reaction Past Psychological History: Anxiety, Depression Smoking Status: Former smoker Past Alcohol Use History: None Reported Past Drug Use History: None Reported - Past Family History Mother Family Medical History: Asthma Additional Family Medical History / Comment(s): depression Father Additional Family Medical History / Comment(s): ETOH Medications and Allergies Home Medications Medication Instructions Recorded Confirmed Type Albuterol Nebulized [Ventolin 2.5 mg INHALATION RT-DAILY 03/22/17 11/25/18 History Nebulized] Aspirin EC [Ecotrin Low Dose] 81 mg PO HS 03/22/17 11/25/18 History Dexamethasone [Hexadrol] 2 mg PO DAILY 03/22/17 11/25/18 History Ergocalciferol [Vitamin D2 50,000 unit PO MO 03/22/17 11/25/18 History (DRISDOL)] Furosemide [Lasix] 40 mg PO DAILY 03/22/17 11/25/18 History Montelukast [Singulair] 10 mg PO DAILY 03/22/17 11/25/18 History Nitroglycerin Sl Tabs [Nitrostat] 0.4 mg SUBLINGUAL Q5M PRN 03/22/17 11/25/18 History levETIRAcetam [Keppra] 500 mg PO BID 03/22/17 11/25/18 History Furosemide [Lasix] 20 mg PO HS 07/29/17 11/25/18 History ALPRAZolam [Xanax] 0.25 mg PO BID PRN 03/24/18 11/25/18 History Esomeprazole Magnesium [NexIUM] 40 mg PO BID 03/24/18 11/25/18 History Folic Acid 1 mg PO DAILY 03/24/18 11/25/18 History DULoxetine HCL [Cymbalta] 30 mg PO DAILY 11/25/18 11/25/18 History buPROPion HCL [Wellbutrin Sr] 100 mg PO DAILY 11/25/18 11/25/18 History Allergies Allergy/AdvReac Type Severity Reaction Status Date / Time Penicillins Allergy Rash/Hives Verified 11/25/18 08:13 Physical Exam Vitals: Vital Signs Temp Pulse Resp BP BP Pulse Ox 11/26/18 21:00 59 L 12 123/65 100 11/26/18 20:00 101 F H 59 L 12 106/51 100 11/26/18 19:00 59 L 14 93/52 99 11/26/18 18:00 59 L 13 104/44 99 11/26/18 17:00 59 L 14 114/55 100 11/26/18 16:00 100.4 F H 59 L 14 106/44 99 11/26/18 15:00 59 L 13 111/51 100 11/26/18 14:00 59 L 12 105/57 100 11/26/18 13:00 62 12 124/56 99 11/26/18 12:00 60 15 123/57 98 11/26/18 11:00 59 L 12 101/46 99 11/26/18 10:00 59 L 17 97/48 97 11/26/18 09:00 59 L 14 98/47 99 11/26/18 08:31 61 11/26/18 08:22 59 L 11/26/18 08:00 101.3 F H 59 L 12 99/48 98 11/26/18 07:00 58 L 19 96/46 96 11/26/18 06:00 64 33 H 108/62 96 11/26/18 05:00 59 L 14 105/51 95 11/26/18 04:00 59 L 19 100/53 97 11/26/18 03:00 59 L 12 110/52 11/26/18 02:00 59 L 35 H 123/58 11/26/18 01:00 59 L 17 112/64 11/26/18 00:29 12 155/53 95 11/26/18 00:00 98.0 F 59 L 13 117/51 11/25/18 23:29 98.0 F 12 137/42 97 11/25/18 23:00 59 L 12 106/48 92 L 11/25/18 22:59 98.6 F 12 140/41 95 11/25/18 22:29 98.5 F 12 138/30 96 11/25/18 22:14 97.9 F 12 141/39 96 11/25/18 22:00 59 L 20 130/43 11/25/18 21:59 98.4 F 20 138/40 95 Intake and Output 11/26/18 11/26/18 11/26/18 06:59 14:59 22:59 Intake Total 184.950 2320.643 973.413 Output Total 445 335 520 Balance 220.558 955.643 453.413 Intake: IV 400 410 499 0.9 400 410 320 Pressure bag 12 Vancomycin 2,500 mg In 167 Sodium Chloride 0.9% 500 ml 500 ml @ 166.667 mls/ hr IVPB ONCE ONE Rx#: [id number] Intake, IV Titration 265.558 730.643 474.413 Amount DOPamine DRIP 800 mg In 504.254 270.594 Dextrose/Water 1 500ml. bag @ 5 MCG/KG/MIN 21.94 mls/hr IV .[id number] [facility] Rx #:[id number] Norepinephrine 16 mg In 247.657 93.591 120.689 Sodium Chloride 0.9% 250 ml @ Titrate IV .Q0M [facility] Rx#:[id number] Propofol 1,000 mg In 17.901 132.798 83.130 Empty Bag 1 bag @ Titrate IV .Q0M [facility] Rx#: [id number] Other 150 Output: Urine 445 335 520 Other: Voiding Method Indwelling Catheter Indwelling Catheter Indwelling Catheter Weight 120.5 kg ABP, PAP, CO, CI - Last 8 Hours Arterial Blood Pressure 131/55 Arterial Blood Pressure 130/56 Arterial Blood Pressure 148/56 Arterial Blood Pressure 139/64 Arterial Blood Pressure 127/63 Arterial Blood Pressure 143/54 Arterial Blood Pressure 168/59 Arterial Blood Pressure 159/57 On physical examination, patient appears comfortable in no apparent distress. HEAD: Normocephalic, atraumatic. EYES: No scleral icterus. No conjunctival injection. MOUTH: No lesions, ET tube in place. NECK: Trachea midline, no gross abnormalities. CHEST: course of respiratory noises consistent with current mechanical ventilation. ABDOMEN: Soft, obese. Bowel sounds are positive. No organomegaly. No guarding or rigidity. EXTREMITIES: bilateral pedal edema. SKIN: No rashes, no jaundice. NEUROLOGIC: sedated. Results CBC & Chem 7: 11/26/18 06:00 11/26/18 06:00 Labs: Abnormal Lab Results - Last 24 Hours (Table) 11/26/18 11/26/18 11/26/18 Range/Units 00:42 00:42 04:04 WBC (3.8-10.6) k/uL Neutrophils # (1.3-7.7) k/uL ABG pCO2 54 H (35-45) mmHg ABG HCO3 32 H (21-25) mmol/L ABG Total CO2 34 H (19-24) mmol/L Sodium (137-145) mmol/L Potassium (3.5-5.1) mmol/L Chloride (98-107) mmol/L BUN (7-17) mg/dL Creatinine (0.52-1.04) mg/dL Glucose (74-99) mg/dL POC Glucose (mg/dL) (75-99) mg/dL Hemoglobin A1c (4.0-6.0) % Plasma Lactic Acid Margarito 3.0 H* (0.7-2.0) mmol/L Calcium (8.4-10.2) mg/dL Troponin I 0.199 H* (0.000-0.034) ng/mL Total Protein (6.3-8.2) g/dL Albumin (3.5-5.0) g/dL 11/26/18 11/26/18 11/26/18 Range/Units 06:00 06:00 06:00 WBC 12.8 H (3.8-10.6) k/uL Neutrophils # 10.4 H (1.3-7.7) k/uL ABG pCO2 (35-45) mmHg ABG HCO3 (21-25) mmol/L ABG Total CO2 (19-24) mmol/L Sodium 127 L (137-145) mmol/L Potassium 3.3 L (3.5-5.1) mmol/L Chloride 88 L (98-107) mmol/L BUN 20 H (7-17) mg/dL Creatinine 1.25 H (0.52-1.04) mg/dL Glucose 178 H (74-99) mg/dL POC Glucose (mg/dL) (75-99) mg/dL Hemoglobin A1c 6.4 H (4.0-6.0) % Plasma Lactic Acid Margarito (0.7-2.0) mmol/L Calcium 8.0 L (8.4-10.2) mg/dL Troponin I (0.000-0.034) ng/mL Total Protein 5.5 L (6.3-8.2) g/dL Albumin 2.8 L (3.5-5.0) g/dL 11/26/18 11/26/18 11/26/18 Range/Units 06:43 11:40 18:03 WBC (3.8-10.6) k/uL Neutrophils # (1.3-7.7) k/uL ABG pCO2 (35-45) mmHg ABG HCO3 (21-25) mmol/L ABG Total CO2 (19-24) mmol/L Sodium (137-145) mmol/L Potassium (3.5-5.1) mmol/L Chloride (98-107) mmol/L BUN (7-17) mg/dL Creatinine (0.52-1.04) mg/dL Glucose (74-99) mg/dL POC Glucose (mg/dL) 184 H 187 H 191 H (75-99) mg/dL Hemoglobin A1c (4.0-6.0) % Plasma Lactic Acid Margarito (0.7-2.0) mmol/L Calcium (8.4-10.2) mg/dL Troponin I (0.000-0.034) ng/mL Total Protein (6.3-8.2) g/dL Albumin (3.5-5.0) g/dL Microbiology - Last 24 Hours (Table) 11/25/18 18:46 Blood Culture - Final Blood 11/25/18 19:22 Urine Culture - Final Urine,Catheterized 11/25/18 20:15 Gram Stain - Preliminary Sputum Sputum Culture - Preliminary Assessment and Plan (1) Nausea vomiting and diarrhea Narrative/Plan: Nausea vomiting and diarrhea of unknown etiology, this may represent a bacterial or viral gastroenteritis given the acuity of the patient's symptoms versus other etiology with differential including uncontrolled diabetes, electrolytes dyscrasias or symptoms relating to underlying cardiac condition. Current Visit: Yes Status: Acute Code(s): R11.2 - NAUSEA WITH VOMITING, UNSPECIFIED; R19.7 - DIARRHEA, UNSPECIFIED SNOMED Code(s): 1862649 (2) AV dissociation Current Visit: Yes Status: Acute Code(s): I45.89 - OTHER SPECIFIED CONDUCTION DISORDERS SNOMED Code(s): 90760135 Plan: Supportive care Appreciate recommendations cardiology Continue ICU care We'll continue to monitor for symptoms, consideration for stool studies diarrhea continues Thank you for allowing us to participate in the care of this patient we will continue to follow
[2018-11-26] MEDS: AZTREONAM 1 GM in SODIUM CHLORIDE 0.9% 50 ML IVPB SCH (22:27)
[2018-11-26 23:30] LABS: Glucose,Whole Blood 180 mg/dL (75-99)
[2018-11-27 04:28] LABS: ABG HCO3 31 mmol/L (21-25); ABG Oxygen Saturation 97.5 % (94-97); ABG PCO2 48 mmHg (35-45); ABG PH 7.42 (7.35-7.45); ABG PO2 111 mmHg (83-108); ABG TCO2 33 mmol/L (19-24)
[2018-11-27 05:55] LABS: Glucose,Whole Blood 188 mg/dL (75-99)
[2018-11-27] MEDS: PROPOFOL 1,000 MG in EMPTY BAG 1 BAG IV SCH ×3 (06:29→20:11)
[2018-11-27 07:03] LABS: Basophils % (A) 0 %; Eosinophils # (A) 0.1 k/uL (0-0.7); Eosinophils % (A) 1 %; HCT 35.4 % (34.0-46.0); HGB 11.4 gm/dL (11.4-16.0); Lymphocytes # (A) 0.8 k/uL (1.0-4.8); Lymphocytes % (A) 7 %; MCH 27.4 pg (25.0-35.0); MCHC 32.2 g/dL (31.0-37.0); MCV 85.3 fL (80.0-100.0); Mean Platelet Volume 7.7; Monocytes # (A) 0.9 k/uL (0-1.0); Monocytes % (A) 7 %; Neutrophils # (A) 10.4 k/uL (1.3-7.7); Neutrophils % (A) 84 %; Platelet Count 270 k/uL (150-450); RBC 4.15 m/uL (3.80-5.40); RDW 14.6 % (11.5-15.5); WBC 12.4 k/uL (3.8-10.6)
--- NOTE | 2018-11-27 07:19 | XR ---
EXAMINATION TYPE: XR chest 1V portable DATE OF EXAM: 11/27/2018 COMPARISON: 11/26/2018 HISTORY: SOB, Follow Up FINDINGS: Indwelling tubes and catheters are unchanged. No change in bibasilar opacities. Stable appearance of the cardio-mediastinal structures at this time. Pleural effusion unchanged. IMPRESSION: 1. Stable portable chest. Clinical correlation and follow up until resolution is recommended.
[2018-11-27 07:29] LABS: Calcium 7.8 mg/dL (8.4-10.2); Magnesium 2.5 mg/dL (1.6-2.3); Phosphorus 2.8 mg/dL (2.5-4.5); Potassium 3.7 mmol/L (3.5-5.1)
[2018-11-27] MEDS: ALBUTEROL NEBULIZED 2.5 MG/3 ML INHALATION SCH (07:43)
[2018-11-27] MEDS: DOPamine DRIP 800 MG in DEXTROSE/WATER 1 500ML.BAG IV SCH (07:57)
[2018-11-27] MEDS: CHLORHEXIDINE GLUCONATE 15 ML CUP MUCOUS MEM SCH ×2 (08:27→20:25)
[2018-11-27] MEDS: buPROPion SR 100 MG TABLET.ER PO SCH (08:27)
[2018-11-27] MEDS: FAMOTIDINE 20 MG/2 ML VIAL IV SCH (08:27)
[2018-11-27] MEDS: AZTREONAM 1 GM in SODIUM CHLORIDE 0.9% 50 ML IVPB SCH ×2 (08:27→20:25)
[2018-11-27] MEDS: levETIRAcetam 500 MG TAB PO SCH ×2 (08:27→20:25)
[2018-11-27] MEDS: MONTELUKAST 10 MG TAB PO SCH (08:27)
[2018-11-27] MEDS: DULoxetine HCL 30 MG CAPSULE.DR PO SCH (09:33)
--- NOTE | 2018-11-27 11:53 | P.PN ---
Progress Note - Text Her heart block has resolved completely. She is currently on dopamine and some norepinephrine. Blood pressure is normal in a tapering this off and she is septic and I'll ask the nurses to taper off dopamine at the least I checked her temporary RV pacing threshold and it is at 1 mA She is intubated this time Breath sounds are reduced bilaterally Heart sounds are soft Impression IVCD noted which is what she has at baseline Normal heart rates without any heart block at this time Pacemaker was reprogrammed to a backup rate of 50 beats a minute and output of 5 mA At this time she is being treated for sepsis. There is no plan for permanent pacemaker at this point. Plan from a chronic standpoint is to taper off dopamine to as little as possible or none at all I reviewed her labs white count 12.4 thousand sodium 132 potassium 3.7, magnesium 2.5
[2018-11-27 12:01] LABS: Glucose,Whole Blood 165 mg/dL (75-99)
[2018-11-27] MEDS: DEXAMETHASONE 2 MG TAB PO SCH (12:07)
[2018-11-27] MEDS: FOLIC ACID 1 MG TAB PO SCH (12:10)
[2018-11-27] MEDS ORDERED: POTASSIUM BICARBONATE/CIT AC 20 MEQ TABLET.EFF NG-TUBE SCH (14:00)
[2018-11-27] MEDS: NOREPINEPHRINE 16 MG in SODIUM CHLORIDE 0.9% 250 ML IV SCH (15:04)
[2018-11-27] MEDS: VANCOMYCIN 2,250 MG in SODIUM CHLORIDE 0.9% 500 ML 500 ML IVPB SCH (15:45)
[2018-11-27] MEDS: INSULIN ASPART 100 UNIT/ML 1 ML 10 ML VIAL SQ SCH ×2 (17:49→23:51)
[2018-11-27 17:57] LABS: Glucose,Whole Blood 174 mg/dL (75-99)
--- NOTE | 2018-11-27 18:28 | P.PN ---
Subjective Progress Note Date: 11/27/18 Principal diagnosis: Severe complete high grade third degree AV block, acute respiratory failure, lactic acidosis, hyponatremia, aspiration pneumonia, acute renal failure stage III, sepsis/Sirs-like process, status post temporary transvenous pacemaker insertion 11/27/2018, patient seen eval examined during the rounds clinically patient is slightly improving terms of hemodynamics, the heart block has improvement, heart rate spontaneous is in 60s to 70s, blood pressure map remains over 60-70, patient however remains on dopamine which has been titrated down to 2 mics, the levo fed has been lowered down to 6 mics as well, patient is 15 mics of propofol she is arousable does open eyes, she remains on full vent setting with assist control 12 breathing 12 tidal volume is 500, PEEP is 5, oxygen is down to 40%, chest x-ray laboratory data reviewed, blood cultures appears to be contamination as coag-negative staph has been noted, ID service has been consulted, care plan discussed with the staff at length, cardiovascular services recommendations reviewed, critical care time spent 35 minutes 11/26/2018 patient seen eval reexamined during the rounds clinically patient remains sedated with propofol drip currently patient is on 20 mics able to come down however hemodynamic status remains marginal, patient require 100% pacing as without heart rate drops down to less than 30, patient is also on levo fed drip 35 mics, and dopamine drip 10 mics, currently maintenance IV fluids 50 mL an hour being given, patient has been found to be hypokalemic potassium has been replaced, chest x-ray revealed a possible developing left lower lobe infiltrate cannot be excluded along with small effusion, on assist control rate of 12 breathing 12 tidal volume of 500, with PEEP of 5, FiO2 is down to 40%, chest x-ray reviewed laboratory data reviewed, critical care time spent 40 minutes 73-year-old female who was seen evaluated examined on medical floor, this patient admitted into the hospital earlier this morning with problems associated with nauseous feeling and nasopharyngeal swab for influenza A and B were both negative, her symptoms started a day before she has not been taking able to take anything by mouth she is not taking her home medication as well, patient has been having looser stool as well overall symptoms appeared to be like gastroenteritis however no bloody diarrhea has been noted, patient denies any emesis denies any abdominal pain and on specific questioning denies any chest pain or radiation of pain, she does have a history of COPD and chronic persistent asthma, patient also has a history of hypertension hypertensive cardiovascular disease and advanced steroid-dependent rheumatoid arthritis, she has not been formally evaluated for sleep disorder breathing and sleep apnea, on medical floor patient was found to be bradycardic which was a significant change compared to her admit vitals, patient was however hemodynamically stable but due to significant bradycardia transferred to the selective care/ICU if no bed is available consult with cardiology has been also initiated, they felt that patient to be monitored and observed dopamine/dopamine and check agents were not initiated as patient was hemodynamically stable and bradycardia thought to be related to exaggerated vagal response, review of the data also revealed that patient is hyponatremic, initial EKG revealed sinus tachycardia with left bundle branch block and currently developed high degree AV block, patient failed to capture external pacemaker eventually due to severe restlessness and significant bradycardia was intubated and cardiovascular services took her to the Lab at transvenous temporary pacemaker has been inserted through the groin, and A-line has been inserted by the anesthesia, patient only has a single lumen groin catheter through which transvenous pacemaker is present being infused with 10 mics of levo fed as well as dopamine to keep map around 65-70 patient is on full ventilator support initially patient was place on assist control rate of 20 tidal volume of 505 of PEEP 100% oxygen now rate is being cut down to 14 PEEP is 5 FiO2 Is Lowered down to 50%, Objective - Vital Signs Vital signs: Vital Signs Temp 98.5 F 11/27/18 16:00 Pulse 80 11/27/18 18:00 Resp 12 11/27/18 18:00 BP 107/68 11/27/18 18:00 Pulse Ox 100 11/27/18 18:00 Intake & Output 11/26/18 11/27/18 11/27/18 18:59 06:59 18:59 Intake Total 3796.389 2712.714 2124.194 Output Total 710 1425 440 Balance 1180.286 29.714 1684.194 Weight 122.3 kg Intake: IV 610 1277 726 0.9 610 660 610 Aztreonam 1 gm In Sodium 50 50 Chloride 0.9% 50 ml @ 100 mls/hr IVPB Q12HR [facility] Rx #:[id number] Pressure bag 66 66 Vancomycin 2,500 mg In 501 Sodium Chloride 0.9% 500 ml 500 ml @ 166.667 mls/ hr IVPB ONCE ONE Rx#: [id number] Intake, IV Titration 1130.286 083.677 5677.194 Amount DOPamine DRIP 800 mg In 727.311 47.537 770.941 Dextrose/Water 1 500ml. bag @ 5 MCG/KG/MIN 21.94 mls/hr IV .[id number] [facility] Rx #:[id number] Norepinephrine 16 mg In 214.280 35.72 Sodium Chloride 0.9% 250 ml @ Titrate IV .Q0M [facility] Rx#:[id number] Propofol 1,000 mg In 188.695 94.457 127.253 Empty Bag 1 bag @ Titrate IV .Q0M [facility] Rx#: [id number] Vancomycin 2,250 mg In 500 Sodium Chloride 0.9% 500 ml 500 ml @ 166.667 mls/ hr IVPB Q24H [facility] Rx#: [id number] Other 150 Output: Urine 710 1425 440 Other: Voiding Method Indwelling Catheter Indwelling Catheter Indwelling Catheter ABP, PAP, CO, CI - Last Documented Arterial Blood Pressure 117/67 - Exam - Constitutional General appearance: average body habitus, disheveled, no acute distress, obese sedated with propofol drip- EENT Eyes: normal appearance Ears: bilateral: normal - Neck Neck: normal ROM Carotids: bilateral: upstroke normal Thyroid: bilateral: normal size - Respiratory Respiratory: bilateral: CTA, decreased breath sound at the bases especially on the left side with bronchial breath sound - Cardiovascular Heart sounds: normal: S1, S2 - Gastrointestinal General gastrointestinal: decreased bowel sounds, distended, soft - Integumentary Integumentary: normal turgor - Neurologic Sedated with propofol drip - Musculoskeletal Musculoskeletal: gait normal, generalized weakness, strength equal bilaterally - Labs CBC & Chem 7: 11/27/18 05:00 11/27/18 05:00 Labs: Abnormal Lab Results - Last 24 Hours (Table) 11/25/18 11/26/18 11/27/18 Range/Units 20:00 23:18 04:22 WBC (3.8-10.6) k/uL Neutrophils # (1.3-7.7) k/uL Lymphocytes # (1.0-4.8) k/uL ABG pCO2 48 H (35-45) mmHg ABG pO2 111 H (83-108) mmHg ABG HCO3 31 H (21-25) mmol/L ABG Total CO2 33 H (19-24) mmol/L ABG O2 Saturation 97.5 H (94-97) % Sodium (137-145) mmol/L Chloride (98-107) mmol/L Glucose (74-99) mg/dL POC Glucose (mg/dL) 180 H (75-99) mg/dL Calcium (8.4-10.2) mg/dL Magnesium (1.6-2.3) mg/dL Levetiracetam 2.1 L (3.0-60.0) ug/mL 11/27/18 11/27/18 11/27/18 Range/Units 05:00 05:00 05:44 WBC 12.4 H (3.8-10.6) k/uL Neutrophils # 10.4 H (1.3-7.7) k/uL Lymphocytes # 0.8 L (1.0-4.8) k/uL ABG pCO2 (35-45) mmHg ABG pO2 (83-108) mmHg ABG HCO3 (21-25) mmol/L ABG Total CO2 (19-24) mmol/L ABG O2 Saturation (94-97) % Sodium 132 L (137-145) mmol/L Chloride 95 L (98-107) mmol/L Glucose 188 H (74-99) mg/dL POC Glucose (mg/dL) 188 H (75-99) mg/dL Calcium 7.8 L (8.4-10.2) mg/dL Magnesium 2.5 H (1.6-2.3) mg/dL Levetiracetam (3.0-60.0) ug/mL 11/27/18 11/27/18 Range/Units 11:48 17:46 WBC (3.8-10.6) k/uL Neutrophils # (1.3-7.7) k/uL Lymphocytes # (1.0-4.8) k/uL ABG pCO2 (35-45) mmHg ABG pO2 (83-108) mmHg ABG HCO3 (21-25) mmol/L ABG Total CO2 (19-24) mmol/L ABG O2 Saturation (94-97) % Sodium (137-145) mmol/L Chloride (98-107) mmol/L Glucose (74-99) mg/dL POC Glucose (mg/dL) 165 H 174 H (75-99) mg/dL Calcium (8.4-10.2) mg/dL Magnesium (1.6-2.3) mg/dL Levetiracetam (3.0-60.0) ug/mL Microbiology - Last 24 Hours (Table) 11/25/18 20:15 Gram Stain - Final Sputum Sputum Culture - Final 11/25/18 18:46 Blood Culture Gram Stain - Preliminary Blood Blood Culture - Preliminary Coagulase Negative Staph 11/25/18 18:46 Blood Culture - Final Blood 11/25/18 19:22 Urine Culture - Final Urine,Catheterized Assessment and Plan Assessment: Left lower lobe aspiration pneumonia Severe sepsis Severe complete third-degree high-grade AV block Acute respiratory failure related to above Lactic acidosis secondary due to due to poor perfusion and cardiogenic shock Hyponatremia Acute renal failure stage III Suspect component of shock liver Sirs-like process Bacteremia likely contamination Plan: Continue ventilator support ventilator adjustment as per arterial blood gases Patient is a status post central line Taper and DC the levo fed drip Taper and DC the propofol prior to weaning trial Titrate the dopamine drip to DC as well Continue broad-spectrum antibiotics with aztreonam and vancomycin Will initiate weaning trial from tomorrow once off of pressors Continue gentle hydration Status post temporary transvenous pacemaker Haji culture including urine and blood and sputum obtained however given ongoing fever will start treatment with IV antibiotics pending culture results and report Further recommendations pending plan of care as per clinical response of the patient Critical care time spent 35 minutes Time with Patient: Greater than 30
--- NOTE | 2018-11-27 23:38 | CONS ---
CONSULTATION DATE OF SERVICE: 11/27/2018. REASON FOR FOLLOWUP: Aspiration pneumonia and antibiotic recommendation. HISTORY OF PRESENT ILLNESS: The patient is a 73-year-old female presenting to the ER at [facility] on 11/25/2018 with a chief complaint of nausea, vomiting and diarrhea which has been going on for almost 24 hours along with a near syncopal episode. The patient with these symptoms was brought into the ER. The patient was evaluated by the ER physician. She was noted to be slightly hyponatremic. While down in the ER the patient did go into AV block and bradyarrhythmia. The patient went into respiratory distress. She is currently intubated on the vent and subsequently got a transvenous pacer temporarily. The patient did have admission x-ray that was negative for any acute infiltrate. The patient did spike a fever of 101.3 degrees Fahrenheit yesterday morning. She did have blood cultures obtained which were coagulase negative Staph. Sputum has been requested. She was started on aztreonam 1 g every 12 with vancomycin addition today. I was asked to see the patient for further recommendation regarding antibiotic therapy. The patient is currently intubated, unable to provide any history, most of the information has been obtained from review of the chart and talking to nursing staff. The patient did not have significant through the ET. Currently nothing by mouth. No further diarrhea has been noticed. REVIEW OF SYSTEMS: Could not be reliably obtained. Positive points have been mentioned in HPI. PAST MEDICAL HISTORY: Asthma, heart failure, hypertension, osteoarthritis, sleep apnea, osteoporosis, benign tumor of the brain. PAST SURGICAL HISTORY: Cholecystectomy, tonsillectomy. SOCIAL HISTORY: Remote history of smoking. No drinking or drug use. FAMILY HISTORY: Mother with history of asthma and depression. Father with history of colon problem. ALLERGIES: PENICILLIN. MEDICATIONS: The patient is currently: 1. Xanax. 2. Azactam. 3. . 4. Dopamine. 5. Cymbalta. 6. Pepcid. 7. Folic acid. 8. NovoLog. 9. Keppra. 10.Narcan. 11.Norepinephrine. 12.Propofol. 13.Vancomycin. PHYSICAL EXAMINATION: Blood pressure is 130/79 with a pulse of 77, temperature 98.6. She is 100% on 40% FiO2. GENERAL DESCRIPTION: An elderly female lying in bed in no distress. No tachypnea or accessory muscle of respiration use. HEENT: Shows no pallor or scleral icterus. Oral mucosa is dry. No pharyngeal erythema. NECK: Trachea central. No thyromegaly. LUNGS: Unlabored breathing with decreased breath sounds at the bases. No wheeze. HEART: S1, S2. Regular rate and rhythm. ABDOMEN: Soft, no tenderness. No guarding or rigidity. EXTREMITIES: No edema of the feet. SKIN: No rashes, no masses palpable. NEUROLOGIC: The patient is currently on the vent. LABS: Hemoglobin is 11.4, white count 12.4, BUN of 15, creatinine 0.86. UA has been negative. Influenza serology was negative. Chest x-ray report shows bibasilar infiltrate. Blood culture with coagulase-negative staph. DIAGNOSTIC IMPRESSION AND PLAN: 1. Patient with acute respiratory failure which is likely multifactorial for this patient who did have a bradyarrhythmia. She presented to the hospital with nausea and vomiting. Did not have any fever. The patient subsequently spiked a fever with acute failure and bibasilar infiltrate, likely pointing to aspiration pneumonia with concern for possible resistant gram positive or gram-negative as the process started in the hospital. 2. Patient noted to have PENICILLIN allergy which limits the number of antibiotics that could be safely used. No history of any anaphylaxis. PLAN: 1. We will start the patient on cefepime 2 g every12 hours. Discontinue Azactam. 2. Vancomycin pharmacy to dose target of 15. 3. Obtain sputum for Gram stain culture and sensitivity. 4. We will follow up on clinical condition and culture to further adjust medication if needed. Thank you for this consultation. Will follow this patient along with you. MMODL / IJN: [id number] /
[2018-11-27 23:56] LABS: Glucose,Whole Blood 162 mg/dL (75-99)
[2018-11-28] MEDS: PROPOFOL 1,000 MG in EMPTY BAG 1 BAG IV SCH ×2 (02:55→09:40)
[2018-11-28 05:35] LABS: Calcium 7.4 mg/dL (8.4-10.2); Magnesium 2.4 mg/dL (1.6-2.3); Phosphorus 2.9 mg/dL (2.5-4.5); Potassium 4.1 mmol/L (3.5-5.1)
[2018-11-28 05:37] LABS: ABG HCO3 32 mmol/L (21-25); ABG Oxygen Saturation 99.2 % (94-97); ABG PCO2 49 mmHg (35-45); ABG PH 7.42 (7.35-7.45); ABG PO2 131 mmHg (83-108); ABG TCO2 33 mmol/L (19-24)
[2018-11-28 05:46] LABS: Basophils % (A) 0 %; Eosinophils % (A) 0 %; HCT 30.1 % (34.0-46.0); Lymphocytes # (A) 0.4 k/uL (1.0-4.8); Lymphocytes % (A) 6 %; MCH 27.9 pg (25.0-35.0); MCV 87.1 fL (80.0-100.0); Mean Platelet Volume 7.1; Monocytes # (A) 0.5 k/uL (0-1.0); Monocytes % (A) 6 %; Neutrophils # (A) 6.9 k/uL (1.3-7.7); Neutrophils % (A) 87 %; Platelet Count 169 k/uL (150-450); RBC 3.45 m/uL (3.80-5.40); RDW 14.9 % (11.5-15.5); WBC 7.9 k/uL (3.8-10.6)
[2018-11-28] MEDS: INSULIN ASPART 100 UNIT/ML 1 ML 10 ML VIAL SQ SCH ×3 (05:57→18:16)
[2018-11-28 06:14] LABS: HGB 9.6 gm/dL (11.4-16.0)
[2018-11-28] MEDS: ALBUTEROL NEBULIZED 2.5 MG/3 ML INHALATION SCH (07:11)
--- NOTE | 2018-11-28 09:07 | XR ---
EXAMINATION TYPE: XR chest 1V portable DATE OF EXAM: 11/28/2018 COMPARISON: 11/27/2018 INDICATION: Tube placement difficulty breathing TECHNIQUE: Single frontal view of the chest is obtained. FINDINGS: The heart size is enlarged. The pulmonary vasculature is normal. There is some minimal plate atelectasis within the right mid and lower lung field. Small left pleural effusion is present. Right central venous catheter is present with the tip in the distal superior vena cava right atrial j unction. An endotracheal tube is present with the tip above the omayra. IMPRESSION: 1. Small left pleural effusion. 2. Atelectasis right lung. 3. Lines and catheters discussed above.
--- NOTE | 2018-11-28 09:36 | P.PN ---
Subjective Progress Note Date: 11/27/18 Principal diagnosis: Weakness, nausea/vomiting/diarrhea Patient remains intubated and sedated. A lengthy discussion with the nursing staff and no diarrhea/loose bowel movements since he patient has been in the intensive care unit Objective - Vital Signs Vital signs: Vital Signs Temp 98.6 F 11/27/18 20:00 Pulse 71 11/27/18 23:00 Resp 12 11/27/18 23:00 BP 104/67 11/27/18 23:00 Pulse Ox 100 11/27/18 23:00 Intake & Output 11/27/18 11/27/18 11/28/18 06:59 18:59 06:59 Intake Total 8690.984 5712.860 437.875 Output Total 1425 440 155 Balance 29.714 1734.860 282.875 Weight 122.3 kg Intake: IV 1277 726 315 0.9 660 610 250 Aztreonam 1 gm In Sodium 50 50 50 Chloride 0.9% 50 ml @ 100 mls/hr IVPB Q12HR [facility] Rx #:[id number] Pressure bag 66 66 15 Vancomycin 2,500 mg In 501 Sodium Chloride 0.9% 500 ml 500 ml @ 166.667 mls/ hr IVPB ONCE ONE Rx#: [id number] Intake, IV Titration 635.847 7046.860 122.875 Amount DOPamine DRIP 800 mg In 47.537 821.607 9.209 Dextrose/Water 1 500ml. bag @ 5 MCG/KG/MIN 21.94 mls/hr IV .[id number] [facility] Rx #:[id number] Norepinephrine 16 mg In 35.72 32.448 Sodium Chloride 0.9% 250 ml @ Titrate IV .Q0M [facility] Rx#:[id number] Propofol 1,000 mg In 94.457 127.253 81.218 Empty Bag 1 bag @ Titrate IV .Q0M [facility] Rx#: [id number] Vancomycin 2,250 mg In 500 Sodium Chloride 0.9% 500 ml 500 ml @ 166.667 mls/ hr IVPB Q24H [facility] Rx#: [id number] Output: Urine 1425 440 155 Other: Voiding Method Indwelling Catheter Indwelling Catheter Indwelling Catheter ABP, PAP, CO, CI - Last Documented Arterial Blood Pressure 117/67 - Exam On physical examination, patient appears comfortable in no apparent distress. HEAD: Normocephalic, atraumatic. EYES: No scleral icterus. No conjunctival injection. MOUTH: No lesions, ET tube in place. NECK: Trachea midline, no gross abnormalities. CHEST: course of respiratory noises consistent with current mechanical ventilation. ABDOMEN: Soft, obese. Bowel sounds are positive. No organomegaly. No guarding or rigidity. EXTREMITIES: bilateral pedal edema. SKIN: No rashes, no jaundice. NEUROLOGIC: sedated. - Labs CBC & Chem 7: 11/28/18 04:16 11/28/18 04:16 Labs: Abnormal Lab Results - Last 24 Hours (Table) 11/25/18 11/27/18 11/27/18 Range/Units 20:00 04:22 05:00 WBC (3.8-10.6) k/uL Neutrophils # (1.3-7.7) k/uL Lymphocytes # (1.0-4.8) k/uL ABG pCO2 48 H (35-45) mmHg ABG pO2 111 H (83-108) mmHg ABG HCO3 31 H (21-25) mmol/L ABG Total CO2 33 H (19-24) mmol/L ABG O2 Saturation 97.5 H (94-97) % Sodium 132 L (137-145) mmol/L Chloride 95 L (98-107) mmol/L Glucose 188 H (74-99) mg/dL POC Glucose (mg/dL) (75-99) mg/dL Calcium 7.8 L (8.4-10.2) mg/dL Magnesium 2.5 H (1.6-2.3) mg/dL Levetiracetam 2.1 L (3.0-60.0) ug/mL 11/27/18 11/27/18 11/27/18 Range/Units 05:00 05:44 11:48 WBC 12.4 H (3.8-10.6) k/uL Neutrophils # 10.4 H (1.3-7.7) k/uL Lymphocytes # 0.8 L (1.0-4.8) k/uL ABG pCO2 (35-45) mmHg ABG pO2 (83-108) mmHg ABG HCO3 (21-25) mmol/L ABG Total CO2 (19-24) mmol/L ABG O2 Saturation (94-97) % Sodium (137-145) mmol/L Chloride (98-107) mmol/L Glucose (74-99) mg/dL POC Glucose (mg/dL) 188 H 165 H (75-99) mg/dL Calcium (8.4-10.2) mg/dL Magnesium (1.6-2.3) mg/dL Levetiracetam (3.0-60.0) ug/mL 11/27/18 Range/Units 17:46 WBC (3.8-10.6) k/uL Neutrophils # (1.3-7.7) k/uL Lymphocytes # (1.0-4.8) k/uL ABG pCO2 (35-45) mmHg ABG pO2 (83-108) mmHg ABG HCO3 (21-25) mmol/L ABG Total CO2 (19-24) mmol/L ABG O2 Saturation (94-97) % Sodium (137-145) mmol/L Chloride (98-107) mmol/L Glucose (74-99) mg/dL POC Glucose (mg/dL) 174 H (75-99) mg/dL Calcium (8.4-10.2) mg/dL Magnesium (1.6-2.3) mg/dL Levetiracetam (3.0-60.0) ug/mL Microbiology - Last 24 Hours (Table) 11/25/18 20:15 Gram Stain - Final Sputum Sputum Culture - Final 11/25/18 18:46 Blood Culture Gram Stain - Preliminary Blood Blood Culture - Preliminary Coagulase Negative Staph 11/25/18 18:46 Blood Culture - Final Blood 11/25/18 19:22 Urine Culture - Final Urine,Catheterized Assessment and Plan (1) Nausea vomiting and diarrhea Narrative/Plan: Nausea vomiting and diarrhea of unknown etiology, this may represent a bacterial or viral gastroenteritis given the acuity of the patient's symptoms versus other etiology with differential including uncontrolled diabetes, electrolytes dyscrasias or symptoms relating to underlying cardiac condition. Likely discussion with the ICU team today and the patient has had no further signs or symptoms during this admission. Current Visit: Yes Status: Acute Code(s): R11.2 - NAUSEA WITH VOMITING, UNSPECIFIED; R19.7 - DIARRHEA, UNSPECIFIED SNOMED Code(s): 6728614 (2) AV dissociation Current Visit: Yes Status: Acute Code(s): I45.89 - OTHER SPECIFIED CONDUCTION DISORDERS SNOMED Code(s): 71826837 Plan: Supportive care Appreciate recommendations cardiology Continue ICU care No signs or symptoms of diarrhea/vomiting per discussion with the nursing staff Thank you for allowing us to participate in the care of this patient, we'll standby at this time please call us back if there are any further questions or concerns
[2018-11-28] MEDS: FAMOTIDINE 20 MG/2 ML VIAL IV SCH (09:59)
[2018-11-28] MEDS: DEXAMETHASONE 2 MG TAB PO SCH (09:59)
[2018-11-28] MEDS: CHLORHEXIDINE GLUCONATE 15 ML CUP MUCOUS MEM SCH (09:59)
[2018-11-28] MEDS: buPROPion SR 100 MG TABLET.ER PO SCH (09:59)
[2018-11-28] MEDS: DULoxetine HCL 30 MG CAPSULE.DR PO SCH (10:00)
[2018-11-28] MEDS: MONTELUKAST 10 MG TAB PO SCH (10:07)
[2018-11-28] MEDS: levETIRAcetam 500 MG TAB PO SCH ×2 (10:07→20:09)
[2018-11-28] MEDS: CEFEPIME 2 GM in SODIUM CHLORIDE 0.9% 50 ML IVPB SCH ×2 (10:36→20:09)
[2018-11-28 10:55] LABS: ABG PH 7.63 (7.35-7.45)
[2018-11-28 12:26] LABS: Glucose,Whole Blood 85 mg/dL (75-99)
--- NOTE | 2018-11-28 12:33 | P.PN ---
Subjective Patient remains intubated. She is off pressors with dopamine and norepinephrine. Heart rates are in the normal range she has a baseline IVCD. She is not using a permanent pacemaker which was set at 50 beats a minute backup pacing VVI yesterday Today the [place] pacing thresholds are still excellent pacing threshold at 1 mA Plan I reprogrammed the pacemaker to a backup rate of 40 beats a minute and I asked the nurse printout any strips if she sees any ventricular pacing From a cardiac standpoint no permanent pacemaker planned at this point. I discussed this with Dr. Mcnamara Her overall medical issues take precedence at this time. There is no need for permanent pacing at this time urgently and we'll make this decision once her overall health improves Her rhythm problem is not the cause of her other medical problems Objective - Vital Signs Vital signs: Vital Signs Temp 97.9 F 11/28/18 04:00 Pulse 74 11/28/18 09:00 Resp 12 11/28/18 09:00 BP 103/57 11/28/18 09:00 Pulse Ox 99 11/28/18 09:00 Intake & Output 11/27/18 11/28/18 11/28/18 18:59 06:59 18:59 Intake Total 2174.860 893.839 312 Output Total 440 375 135 Balance 1734.860 518.839 177 Weight 119.4 kg 119.4 kg Intake: IV 726 686 212 0.9 610 600 200 Aztreonam 1 gm In Sodium 50 50 Chloride 0.9% 50 ml @ 100 mls/hr IVPB Q12HR [facility] Rx #:[id number] Pressure bag 66 36 12 Intake, IV Titration 1448.860 207.839 100 Amount DOPamine DRIP 800 mg In 821.607 9.209 Dextrose/Water 1 500ml. bag @ 5 MCG/KG/MIN 21.94 mls/hr IV .[id number] [facility] Rx #:[id number] Norepinephrine 16 mg In 43.813 Sodium Chloride 0.9% 250 ml @ Titrate IV .Q0M [facility] Rx#:[id number] Propofol 1,000 mg In 127.253 154.817 100 Empty Bag 1 bag @ Titrate IV .Q0M [facility] Rx#: [id number] Vancomycin 2,250 mg In 500 Sodium Chloride 0.9% 500 ml 500 ml @ 166.667 mls/ hr IVPB Q24H [facility] Rx#: [id number] Output: Urine 440 375 135 Other: Voiding Method Indwelling Catheter Indwelling Catheter ABP, PAP, CO, CI - Last Documented Arterial Blood Pressure 117/67 - Labs CBC & Chem 7: 11/28/18 04:16 11/28/18 04:16 Labs: Abnormal Lab Results - Last 24 Hours (Table) 11/25/18 11/27/18 11/27/18 Range/Units 21:28 17:46 23:45 RBC (3.80-5.40) m/uL Hgb (11.4-16.0) gm/dL Hct (34.0-46.0) % Lymphocytes # (1.0-4.8) k/uL ABG pH 7.63 H* (7.35-7.45) ABG pCO2 (35-45) mmHg ABG pO2 (83-108) mmHg ABG HCO3 (21-25) mmol/L ABG Total CO2 (19-24) mmol/L ABG O2 Saturation (94-97) % Sodium (137-145) mmol/L Chloride (98-107) mmol/L BUN (7-17) mg/dL Glucose (74-99) mg/dL POC Glucose (mg/dL) 174 H 162 H (75-99) mg/dL Calcium (8.4-10.2) mg/dL Magnesium (1.6-2.3) mg/dL 11/28/18 11/28/18 11/28/18 Range/Units 04:16 04:16 05:26 RBC 3.45 L (3.80-5.40) m/uL Hgb 9.6 L D (11.4-16.0) gm/dL Hct 30.1 L (34.0-46.0) % Lymphocytes # 0.4 L (1.0-4.8) k/uL ABG pH (7.35-7.45) ABG pCO2 49 H (35-45) mmHg ABG pO2 131 H (83-108) mmHg ABG HCO3 32 H (21-25) mmol/L ABG Total CO2 33 H (19-24) mmol/L ABG O2 Saturation 99.2 H (94-97) % Sodium 131 L (137-145) mmol/L Chloride 97 L (98-107) mmol/L BUN 19 H (7-17) mg/dL Glucose 125 H (74-99) mg/dL POC Glucose (mg/dL) (75-99) mg/dL Calcium 7.4 L (8.4-10.2) mg/dL Magnesium 2.4 H (1.6-2.3) mg/dL Microbiology - Last 24 Hours (Table) 11/25/18 20:15 Gram Stain - Final Sputum Sputum Culture - Final
[2018-11-28] MEDS: FOLIC ACID 1 MG TAB PO SCH (12:59)
[2018-11-28] MEDS ORDERED: FUROSEMIDE 10 MG/ML 4 ML VIAL IV STA (13:16)
[2018-11-28] MEDS: ONDANSETRON 4 MG/2 ML VIAL IVP PRN (13:28)
[2018-11-28 14:08] LABS: ABG Base Excess 7.5 mmol/L; ABG HCO3 32 mmol/L (21-25); ABG Oxygen Saturation 97.3 % (94-97); ABG PCO2 47 mmHg (35-45); ABG PH 7.44 (7.35-7.45); ABG PO2 100 mmHg (83-108); ABG TCO2 33 mmol/L (19-24)
--- NOTE | 2018-11-28 15:44 | P.PN ---
Subjective Progress Note Date: 11/28/18 Principal diagnosis: Severe complete high grade third degree AV block, acute respiratory failure, lactic acidosis, hyponatremia, aspiration pneumonia, acute renal failure stage III, sepsis/Sirs-like process, status post temporary transvenous pacemaker insertion 11/28/2018, patient seen eval examined during rounds clinically is now off of vasopressors dopamine levo fed has been discontinued, patient has been on assist control mode switched over to CPAP 5 pressure support of 10, patient is monitor and observe on the pressure support and CPAP, spontaneous tidal volume at 300 range respiratory rate in the low 20s, saturation remains 90%, patient is still somnolent but arousable, will plan to have extended weaning for one hour and then will check arterial blood gas which was reviewed as well patient tolerated the CPAP pressure trial and very well is being extubated, otherwise patient remains afebrile respiratory secretions stable labs x-rays and radiographic studies reviewed, patient appears to have component of anasarca 40 mg of Lasix IVs does being given will put patient on daily IV furosemide as well , critical care time spent 35 minutes 11/27/2018, patient seen eval examined during the rounds clinically patient is slightly improving terms of hemodynamics, the heart block has improvement, heart rate spontaneous is in 60s to 70s, blood pressure map remains over 60-70, patient however remains on dopamine which has been titrated down to 2 mics, the levo fed has been lowered down to 6 mics as well, patient is 15 mics of propofol she is arousable does open eyes, she remains on full vent setting with assist control 12 breathing 12 tidal volume is 500, PEEP is 5, oxygen is down to 40%, chest x-ray laboratory data reviewed, blood cultures appears to be contamination as coag-negative staph has been noted, ID service has been consulted, care plan discussed with the staff at length, cardiovascular services recommendations reviewed, critical care time spent 35 minutes 11/26/2018 patient seen eval reexamined during the rounds clinically patient remains sedated with propofol drip currently patient is on 20 mics able to come down however hemodynamic status remains marginal, patient require 100% pacing as without heart rate drops down to less than 30, patient is also on levo fed drip 35 mics, and dopamine drip 10 mics, currently maintenance IV fluids 50 mL an hour being given, patient has been found to be hypokalemic potassium has been replaced, chest x-ray revealed a possible developing left lower lobe infiltrate cannot be excluded along with small effusion, on assist control rate of 12 breathing 12 tidal volume of 500, with PEEP of 5, FiO2 is down to 40%, chest x-ray reviewed laboratory data reviewed, critical care time spent 40 minutes 73-year-old female who was seen evaluated examined on medical floor, this patient admitted into the hospital earlier this morning with problems associated with nauseous feeling and nasopharyngeal swab for influenza A and B were both negative, her symptoms started a day before she has not been taking able to take anything by mouth she is not taking her home medication as well, patient has been having looser stool as well overall symptoms appeared to be like gastroenteritis however no bloody diarrhea has been noted, patient denies any emesis denies any abdominal pain and on specific questioning denies any chest pain or radiation of pain, she does have a history of COPD and chronic persistent asthma, patient also has a history of hypertension hypertensive cardiovascular disease and advanced steroid-dependent rheumatoid arthritis, she has not been formally evaluated for sleep disorder breathing and sleep apnea, on medical floor patient was found to be bradycardic which was a significant change compared to her admit vitals, patient was however hemodynamically stable but due to significant bradycardia transferred to the selective care/ICU if no bed is available consult with cardiology has been also initiated, they felt that patient to be monitored and observed dopamine/dopamine and check agents were not initiated as patient was hemodynamically stable and bradycardia thought to be related to exaggerated vagal response, review of the data also revealed that patient is hyponatremic, initial EKG revealed sinus tachycardia with left bundle branch block and currently developed high degree AV block, patient failed to capture external pacemaker eventually due to severe restlessness and significant bradycardia was intubated and cardiovascular services took her to the Lab at transvenous temporary pacemaker has been inserted through the groin, and A-line has been inserted by the anesthesia, patient only has a single lumen groin catheter through which transvenous pacemaker is present being infused with 10 mics of levo fed as well as dopamine to keep map around 65-70 patient is on full ventilator support initially patient was place on assist control rate of 20 tidal volume of 505 of PEEP 100% oxygen now rate is being cut down to 14 PEEP is 5 FiO2 Is Lowered down to 50%, Objective - Vital Signs Vital signs: Vital Signs Temp 97.9 F 12/28/18 04:00 Pulse 93 11/28/18 14:00 Resp 23 11/28/18 14:00 BP 121/64 11/28/18 14:00 Pulse Ox 97 11/28/18 14:00 Intake & Output 11/27/18 11/28/18 11/28/18 18:59 06:59 18:59 Intake Total 2174.860 893.839 535.933 Output Total 440 375 910 Balance 1734.860 518.839 -374.067 Weight 119.4 kg 119.4 kg Intake: IV 726 686 424 0.9 610 600 400 Aztreonam 1 gm In Sodium 50 50 Chloride 0.9% 50 ml @ 100 mls/hr IVPB Q12HR [facility] Rx #:[id number] Pressure bag 66 36 24 Intake, IV Titration 1448.860 207.839 111.933 Amount DOPamine DRIP 800 mg In 821.607 9.209 Dextrose/Water 1 500ml. bag @ 5 MCG/KG/MIN 21.94 mls/hr IV .[id number] [facility] Rx #:[id number] Norepinephrine 16 mg In 43.813 Sodium Chloride 0.9% 250 ml @ Titrate IV .Q0M [facility] Rx#:[id number] Propofol 1,000 mg In 127.253 154.817 111.933 Empty Bag 1 bag @ Titrate IV .Q0M [facility] Rx#: [id number] Vancomycin 2,250 mg In 500 Sodium Chloride 0.9% 500 ml 500 ml @ 166.667 mls/ hr IVPB Q24H [facility] Rx#: [id number] Output: Urine 440 375 910 Other: Voiding Method Indwelling Catheter Indwelling Catheter Indwelling Catheter ABP, PAP, CO, CI - Last Documented Arterial Blood Pressure 117/67 - Exam - Constitutional General appearance: average body habitus, disheveled, no acute distress, obese sedated with propofol drip- EENT Eyes: normal appearance Ears: bilateral: normal - Neck Neck: normal ROM Carotids: bilateral: upstroke normal Thyroid: bilateral: normal size - Respiratory Respiratory: bilateral: CTA, decreased breath sound at the bases especially on the left side with bronchial breath sound - Cardiovascular Heart sounds: normal: S1, S2 - Gastrointestinal General gastrointestinal: decreased bowel sounds, distended, soft - Integumentary Integumentary: normal turgor - Neurologic Sedated with propofol drip - Musculoskeletal Musculoskeletal: gait normal, generalized weakness, strength equal bilaterally - Labs CBC & Chem 7: 11/28/18 04:16 11/28/18 04:16 Labs: Abnormal Lab Results - Last 24 Hours (Table) 11/25/18 11/27/18 11/27/18 Range/Units 21:28 17:46 23:45 RBC (3.80-5.40) m/uL Hgb (11.4-16.0) gm/dL Hct (34.0-46.0) % Lymphocytes # (1.0-4.8) k/uL ABG pH 7.63 H* (7.35-7.45) ABG pCO2 (35-45) mmHg ABG pO2 (83-108) mmHg ABG HCO3 (21-25) mmol/L ABG Total CO2 (19-24) mmol/L ABG O2 Saturation (94-97) % Sodium (137-145) mmol/L Chloride (98-107) mmol/L BUN (7-17) mg/dL Glucose (74-99) mg/dL POC Glucose (mg/dL) 174 H 162 H (75-99) mg/dL Calcium (8.4-10.2) mg/dL Magnesium (1.6-2.3) mg/dL 11/28/18 11/28/18 11/28/18 Range/Units 04:16 04:16 05:26 RBC 3.45 L (3.80-5.40) m/uL Hgb 9.6 L D (11.4-16.0) gm/dL Hct 30.1 L (34.0-46.0) % Lymphocytes # 0.4 L (1.0-4.8) k/uL ABG pH (7.35-7.45) ABG pCO2 49 H (35-45) mmHg ABG pO2 131 H (83-108) mmHg ABG HCO3 32 H (21-25) mmol/L ABG Total CO2 33 H (19-24) mmol/L ABG O2 Saturation 99.2 H (94-97) % Sodium 131 L (137-145) mmol/L Chloride 97 L (98-107) mmol/L BUN 19 H (7-17) mg/dL Glucose 125 H (74-99) mg/dL POC Glucose (mg/dL) (75-99) mg/dL Calcium 7.4 L (8.4-10.2) mg/dL Magnesium 2.4 H (1.6-2.3) mg/dL 11/28/18 Range/Units 14:05 RBC (3.80-5.40) m/uL Hgb (11.4-16.0) gm/dL Hct (34.0-46.0) % Lymphocytes # (1.0-4.8) k/uL ABG pH (7.35-7.45) ABG pCO2 47 H (35-45) mmHg ABG pO2 (83-108) mmHg ABG HCO3 32 H (21-25) mmol/L ABG Total CO2 33 H (19-24) mmol/L ABG O2 Saturation 97.3 H (94-97) % Sodium (137-145) mmol/L Chloride (98-107) mmol/L BUN (7-17) mg/dL Glucose (74-99) mg/dL POC Glucose (mg/dL) (75-99) mg/dL Calcium (8.4-10.2) mg/dL Magnesium (1.6-2.3) mg/dL Assessment and Plan Assessment: Left lower lobe aspiration pneumonia Severe sepsis Severe complete third-degree high-grade AV block Fluid overload and generalized anasarca Acute respiratory failure related to above Lactic acidosis secondary due to due to poor perfusion and cardiogenic shock Hyponatremia Acute renal failure stage III Suspect component of shock liver Sirs-like process Bacteremia likely contamination Plan: Patient tolerated the CPAP and pressure support trial and very well status post weaned and extubation Patient is a status post central line Off of levo fed drip propofol as well as dopamine drip Continue broad-spectrum antibiotics with aztreonam and vancomycin Will initiate weaning trial from tomorrow once off of pressors Continue gentle hydration Status post temporary transvenous pacemaker, patient is now spontaneous sinus rhythm with stable hemodynamics Haji culture including urine and blood and sputum obtained however given ongoing fever will start treatment with IV antibiotics pending culture results and report Further recommendations pending plan of care as per clinical response of the patient Critical care time spent 35 minutes Time with Patient: Greater than 30
[2018-11-28] MEDS: VANCOMYCIN 2,250 MG in SODIUM CHLORIDE 0.9% 500 ML 500 ML IVPB SCH (16:21)
[2018-11-28 18:05] LABS: Glucose,Whole Blood 113 mg/dL (75-99)
--- NOTE | 2018-11-28 22:36 | PN ---
PROGRESS NOTE DATE OF SERVICE: 11/28/2018. REASON FOR FOLLOWUP: Aspiration pneumonia. INTERVAL HISTORY: The patient is currently afebrile. She is hemodynamically stable, not requiring any pressor support. The patient was in the process of slowly weaning off of the sedation and possible extubation. Has been tolerating her tube feeds. No diarrhea reported by nursing staff. PHYSICAL EXAMINATION: Blood pressure 113/59 with a pulse of 99, temperature 98.7. GENERAL DESCRIPTION: A middle-aged female lying in bed in no distress. RESPIRATORY SYSTEM: Unlabored breathing with decreased breath sounds in the bases. No wheeze. HEART: S1, S2. Regular rate and rhythm. ABDOMEN: Soft, no tenderness. LABS: Hemoglobin 9.6, white count 7.9, BUN of 19, creatinine 0.82. Sputum cultures currently pending. DIAGNOSTIC IMPRESSION AND PLAN: 1. Patient with acute respiratory failure which is likely multifactorial, this patient did have a fever, subsequently with new infiltrate on the x-ray, likely complaining of aspiration pneumonia. The patient is currently covered with cefepime and vancomycin to continue. 2. Positive blood cultures with coagulase-negative staph, likely skin contamination. Antibiotic will be adjusted further on the basis of the sputum culture and clinical response. Continue supportive care. MMODL / IJN: [id number] /
[2018-11-28 23:52] LABS: Glucose,Whole Blood 116 mg/dL (75-99)
[2018-11-29 04:49] LABS: Basophils % (A) 0 %; Eosinophils # (A) 0.1 k/uL (0-0.7); Eosinophils % (A) 1 %; HCT 29.7 % (34.0-46.0); HGB 9.5 gm/dL (11.4-16.0); Lymphocytes # (A) 0.6 k/uL (1.0-4.8); Lymphocytes % (A) 8 %; MCH 28.2 pg (25.0-35.0); MCHC 32.1 g/dL (31.0-37.0); MCV 87.8 fL (80.0-100.0); Mean Platelet Volume 6.9; Monocytes # (A) 0.5 k/uL (0-1.0); Monocytes % (A) 6 %; Neutrophils # (A) 6.6 k/uL (1.3-7.7); Neutrophils % (A) 84 %; Platelet Count 169 k/uL (150-450); RBC 3.39 m/uL (3.80-5.40); RDW 14.8 % (11.5-15.5); WBC 7.9 k/uL (3.8-10.6)
[2018-11-29 05:06] LABS: Calcium 7.6 mg/dL (8.4-10.2); Magnesium 2.3 mg/dL (1.6-2.3); Phosphorus 2.3 mg/dL (2.5-4.5)
[2018-11-29 06:01] LABS: Glucose,Whole Blood 93 mg/dL (75-99)
[2018-11-29] MEDS: INSULIN ASPART 100 UNIT/ML 1 ML 10 ML VIAL SQ SCH ×4 (06:55→17:58)
[2018-11-29] MEDS: ALBUTEROL NEBULIZED 2.5 MG/3 ML INHALATION SCH (07:14)
--- NOTE | 2018-11-29 09:05 | XR ---
EXAMINATION TYPE: XR chest 1V portable DATE OF EXAM: 11/29/2018 COMPARISON: 11/28/2018 INDICATION: Tube placement TECHNIQUE: Single frontal view of the chest is obtained. FINDINGS: The heart size is mildly prominent. The pulmonary vasculature is normal. There is a small left pleural effusion. Minimal infiltrate is above the right diaphragm. Findings are stable from comparison Endotracheal tube is been removed. The right central venous catheter with tip in the distal superior vena cava region is stable in position. IMPRESSION: 1. Small left pleural effusion. 2. Small amount of infiltrate at the right base. Continued follow-up is recommended. 3. Cardiomegaly. 4. Right central venous catheter stable in position.
[2018-11-29] MEDS: levETIRAcetam 500 MG TAB PO SCH ×2 (10:13→21:39)
[2018-11-29] MEDS: buPROPion SR 100 MG TABLET.ER PO SCH (10:14)
[2018-11-29] MEDS: DULoxetine HCL 30 MG CAPSULE.DR PO SCH (10:14)
[2018-11-29] MEDS: MONTELUKAST 10 MG TAB PO SCH (10:14)
[2018-11-29] MEDS: DEXAMETHASONE 2 MG TAB PO SCH (10:14)
[2018-11-29] MEDS: CEFEPIME 2 GM in SODIUM CHLORIDE 0.9% 50 ML IVPB SCH ×2 (10:16→21:39)
[2018-11-29] MEDS: FUROSEMIDE 10 MG/ML 4 ML VIAL IV SCH (10:27)
[2018-11-29] MEDS: FAMOTIDINE 20 MG/2 ML VIAL IV SCH (10:28)
[2018-11-29 11:58] LABS: Glucose,Whole Blood 82 mg/dL (75-99)
[2018-11-29] MEDS: FOLIC ACID 1 MG TAB PO SCH (13:23)
[2018-11-29] MEDS: DOPamine DRIP 800 MG in DEXTROSE/WATER 1 500ML.BAG IV SCH (14:44)
[2018-11-29] MEDS: VANCOMYCIN 2,250 MG in SODIUM CHLORIDE 0.9% 500 ML 500 ML IVPB SCH (15:05)
[2018-11-29 17:22] LABS: Glucose,Whole Blood 125 mg/dL (75-99)
--- NOTE | 2018-11-29 20:54 | P.PN ---
Subjective Progress Note Date: 11/29/18 (Critical care time spent 35 minutes) Principal diagnosis: Severe complete high grade third degree AV block, acute respiratory failure, lactic acidosis, hyponatremia, aspiration pneumonia, acute renal failure stage III, sepsis/Sirs-like process, status post temporary transvenous pacemaker insertion 11/29/2018, patient seen eval reexamined during the rounds she has been successfully weaned and active extubated she is on supplemental oxygen very weak though, patient is still have a temperature transvenous pacemaker, which is set at 40, patient is back to her sinus rhythm, patient does have a history of sleep disorder breathing and sleep apnea as per discussion with the daughter she does not use her CPAP machine very regularly, I have educated them extensively at, patient remains on broad-spectrum antibiotics labs reviewed medications reviewed radiographic studies reviewed as well, chest x-ray revealed a small pleural effusion with right basal infiltrate cardiomegaly stable triple-lumen catheter 11/28/2018, patient seen eval examined during rounds clinically is now off of vasopressors dopamine levo fed has been discontinued, patient has been on assist control mode switched over to CPAP 5 pressure support of 10, patient is monitor and observe on the pressure support and CPAP, spontaneous tidal volume at 300 range respiratory rate in the low 20s, saturation remains 90%, patient is still somnolent but arousable, will plan to have extended weaning for one hour and then will check arterial blood gas which was reviewed as well patient tolerated the CPAP pressure trial and very well is being extubated, otherwise patient remains afebrile respiratory secretions stable labs x-rays and radiographic studies reviewed, patient appears to have component of anasarca 40 mg of Lasix IVs does being given will put patient on daily IV furosemide as well , critical care time spent 35 minutes 11/27/2018, patient seen eval examined during the rounds clinically patient is slightly improving terms of hemodynamics, the heart block has improvement, heart rate spontaneous is in 60s to 70s, blood pressure map remains over 60-70, patient however remains on dopamine which has been titrated down to 2 mics, the levo fed has been lowered down to 6 mics as well, patient is 15 mics of propofol she is arousable does open eyes, she remains on full vent setting with assist control 12 breathing 12 tidal volume is 500, PEEP is 5, oxygen is down to 40%, chest x-ray laboratory data reviewed, blood cultures appears to be contamination as coag-negative staph has been noted, ID service has been consulted, care plan discussed with the staff at length, cardiovascular services recommendations reviewed, critical care time spent 35 minutes 11/26/2018 patient seen eval reexamined during the rounds clinically patient remains sedated with propofol drip currently patient is on 20 mics able to come down however hemodynamic status remains marginal, patient require 100% pacing as without heart rate drops down to less than 30, patient is also on levo fed drip 35 mics, and dopamine drip 10 mics, currently maintenance IV fluids 50 mL an hour being given, patient has been found to be hypokalemic potassium has been replaced, chest x-ray revealed a possible developing left lower lobe infiltrate cannot be excluded along with small effusion, on assist control rate of 12 breathing 12 tidal volume of 500, with PEEP of 5, FiO2 is down to 40%, chest x-ray reviewed laboratory data reviewed, critical care time spent 40 minutes 73-year-old female who was seen evaluated examined on medical floor, this patient admitted into the hospital earlier this morning with problems associated with nauseous feeling and nasopharyngeal swab for influenza A and B were both negative, her symptoms started a day before she has not been taking able to take anything by mouth she is not taking her home medication as well, patient has been having looser stool as well overall symptoms appeared to be like gastroenteritis however no bloody diarrhea has been noted, patient denies any emesis denies any abdominal pain and on specific questioning denies any chest pain or radiation of pain, she does have a history of COPD and chronic persistent asthma, patient also has a history of hypertension hypertensive cardiovascular disease and advanced steroid-dependent rheumatoid arthritis, she has not been formally evaluated for sleep disorder breathing and sleep apnea, on medical floor patient was found to be bradycardic which was a significant change compared to her admit vitals, patient was however hemodynamically stable but due to significant bradycardia transferred to the selective care/ICU if no bed is available consult with cardiology has been also initiated, they felt that patient to be monitored and observed dopamine/dopamine and check agents were not initiated as patient was hemodynamically stable and bradycardia thought to be related to exaggerated vagal response, review of the data also revealed that patient is hyponatremic, initial EKG revealed sinus tachycardia with left bundle branch block and currently developed high degree AV block, patient failed to capture external pacemaker eventually due to severe restlessness and significant bradycardia was intubated and cardiovascular services took her to the Lab at transvenous temporary pacemaker has been inserted through the groin, and A-line has been inserted by the anesthesia, patient only has a single lumen groin catheter through which transvenous pacemaker is present being infused with 10 mics of levo fed as well as dopamine to keep map around 65-70 patient is on full ventilator support initially patient was place on assist control rate of 20 tidal volume of 505 of PEEP 100% oxygen now rate is being cut down to 14 PEEP is 5 FiO2 Is Lowered down to 50%, Objective - Vital Signs Vital signs: Vital Signs Temp 97.8 F 11/29/18 16:00 Pulse 87 11/29/18 19:00 Resp 20 11/29/18 19:00 BP 119/64 11/29/18 19:00 Pulse Ox 95 11/29/18 19:00 Intake & Output 11/29/18 11/29/18 11/30/18 06:59 18:59 06:59 Intake Total 896 1096 53 Output Total 1110 2050 50 Balance -214 -954 3 Weight 121.5 kg Intake: IV 696 1046 53 0.9 560 510 50 Aztreonam 1 gm In Sodium 100 Chloride 0.9% 50 ml @ 100 mls/hr IVPB Q12HR [facility] Rx #:[id number] Pressure bag 36 36 3 Vancomycin 2,500 mg In 500 Sodium Chloride 0.9% 500 ml 500 ml @ 166.667 mls/ hr IVPB ONCE ONE Rx#: [id number] Oral 200 Lipid 50 Pressure bag 50 Output: Urine 1110 2050 50 Other: Voiding Method Indwelling Catheter Indwelling Catheter ABP, PAP, CO, CI - Last Documented Arterial Blood Pressure 117/67 - Exam - Constitutional General appearance: average body habitus, disheveled, no acute distress, obese sedated with propofol drip- EENT Eyes: normal appearance Ears: bilateral: normal - Neck Neck: normal ROM Carotids: bilateral: upstroke normal Thyroid: bilateral: normal size - Respiratory Respiratory: bilateral: CTA, decreased breath sound at the bases especially on the left side with bronchial breath sound - Cardiovascular Heart sounds: normal: S1, S2 - Gastrointestinal General gastrointestinal: decreased bowel sounds, distended, soft - Integumentary Integumentary: normal turgor - Neurologic Sedated with propofol drip - Musculoskeletal Musculoskeletal: gait normal, generalized weakness, strength equal bilaterally - Labs CBC & Chem 7: 11/29/18 04:05 11/29/18 04:05 Labs: Abnormal Lab Results - Last 24 Hours (Table) 11/28/18 11/29/18 11/29/18 Range/Units 23:40 04:05 04:05 RBC 3.39 L (3.80-5.40) m/uL Hgb 9.5 L (11.4-16.0) gm/dL Hct 29.7 L (34.0-46.0) % Lymphocytes # 0.6 L (1.0-4.8) k/uL Sodium 136 L (137-145) mmol/L Carbon Dioxide 33 H (22-30) mmol/L BUN 23 H (7-17) mg/dL Glucose 110 H (74-99) mg/dL POC Glucose (mg/dL) 116 H (75-99) mg/dL Calcium 7.6 L (8.4-10.2) mg/dL Phosphorus 2.3 L (2.5-4.5) mg/dL 11/29/18 Range/Units 17:10 RBC (3.80-5.40) m/uL Hgb (11.4-16.0) gm/dL Hct (34.0-46.0) % Lymphocytes # (1.0-4.8) k/uL Sodium (137-145) mmol/L Carbon Dioxide (22-30) mmol/L BUN (7-17) mg/dL Glucose (74-99) mg/dL POC Glucose (mg/dL) 125 H (75-99) mg/dL Calcium (8.4-10.2) mg/dL Phosphorus (2.5-4.5) mg/dL Microbiology - Last 24 Hours (Table) 11/25/18 18:46 Blood Culture Gram Stain - Preliminary Blood Blood Culture - Preliminary Coagulase Negative Staph Assessment and Plan Assessment: Bilateral lower lobe aspiration pneumonia Severe sepsis Severe complete third-degree high-grade AV block Fluid overload and generalized anasarca Acute respiratory failure related to above Lactic acidosis secondary due to due to poor perfusion and cardiogenic shock Hyponatremia Acute renal failure stage III Suspect component of shock liver Sirs-like process Bacteremia likely contamination Plan: Doing well on supplemental oxygen will initiate physical therapy Patient is a status post central line Off of levo fed drip propofol as well as dopamine drip Continue broad-spectrum antibiotics with cephapirin and vancomycin Will initiate increase activity and physical therapy from tomorrow Continue gentle hydration Status post temporary transvenous pacemaker, patient is now spontaneous sinus rhythm with stable hemodynamics Haji culture including urine and blood and sputum obtained however given ongoing fever will start treatment with IV antibiotics pending culture results and report Further recommendations pending plan of care as per clinical response of the patient Critical care time spent 35 minutes Time with Patient: Greater than 30
[2018-11-30 00:13] LABS: Glucose,Whole Blood 118 mg/dL (75-99)
[2018-11-30] MEDS: ALPRAZolam 0.25 MG TAB PO PRN (04:16)
[2018-11-30] MEDS: INSULIN ASPART 100 UNIT/ML 1 ML 10 ML VIAL SQ SCH ×4 (05:37→17:40)
[2018-11-30 06:14] LABS: Glucose,Whole Blood 102 mg/dL (75-99)
[2018-11-30 06:28] LABS: Basophils % (A) 0 %; Eosinophils # (A) 0.1 k/uL (0-0.7); Eosinophils % (A) 2 %; HCT 28.5 % (34.0-46.0); Lymphocytes # (A) 0.6 k/uL (1.0-4.8); Lymphocytes % (A) 8 %; MCH 27.7 pg (25.0-35.0); MCHC 31.5 g/dL (31.0-37.0); MCV 88.1 fL (80.0-100.0); Mean Platelet Volume 7.4; Monocytes # (A) 0.5 k/uL (0-1.0); Monocytes % (A) 7 %; Neutrophils # (A) 6.1 k/uL (1.3-7.7); Neutrophils % (A) 82 %; Platelet Count 202 k/uL (150-450); RBC 3.23 m/uL (3.80-5.40); RDW 14.5 % (11.5-15.5); WBC 7.5 k/uL (3.8-10.6)
[2018-11-30 06:47] LABS: Calcium 7.8 mg/dL (8.4-10.2); Magnesium 2.2 mg/dL (1.6-2.3); Phosphorus 2.7 mg/dL (2.5-4.5); Potassium 3.7 mmol/L (3.5-5.1)
[2018-11-30] MEDS ORDERED: Potassium Replacement Protocol 1 EACH MISC MISCELLANE PRN (06:53)
[2018-11-30] MEDS ORDERED: POTASSIUM CHLORIDE ER 20 MEQ TAB.ER PO SCH (07:00)
[2018-11-30] MEDS: ALBUTEROL NEBULIZED 2.5 MG/3 ML INHALATION SCH ×4 (07:37→20:29)
[2018-11-30] MEDS: MONTELUKAST 10 MG TAB PO SCH (08:24)
[2018-11-30] MEDS: levETIRAcetam 500 MG TAB PO SCH ×2 (08:24→20:49)
[2018-11-30] MEDS: DEXAMETHASONE 2 MG TAB PO SCH (08:24)
[2018-11-30] MEDS: DULoxetine HCL 30 MG CAPSULE.DR PO SCH (08:24)
[2018-11-30] MEDS: buPROPion SR 100 MG TABLET.ER PO SCH (08:24)
--- NOTE | 2018-11-30 08:25 | XR ---
EXAMINATION TYPE: XR chest 1V portable DATE OF EXAM: 11/30/2018 HISTORY: Shortness of breath. COMPARISON: 11/29/2018 TECHNIQUE: Single view of the chest is submitted. FINDINGS: Demonstrated are scattered senescent parenchymal change. Central venous line is unchanged. Basilar p leural effusion and compressive atelectasis. Pulmonary venous congestion. There is no evidence for focal infiltrate. The heart is stable. Hilar and mediastinal structures are within normal limits. Degenerative changes are seen of the dorsal spine. IMPRESSION: 1. Chronic changes without evidence for acute pulmonary disease.
[2018-11-30] MEDS: FAMOTIDINE 20 MG/2 ML VIAL IV SCH (08:26)
[2018-11-30] MEDS: FUROSEMIDE 10 MG/ML 4 ML VIAL IV SCH (08:26)
[2018-11-30] MEDS: CEFEPIME 2 GM in SODIUM CHLORIDE 0.9% 50 ML IVPB SCH ×2 (08:54→20:48)
[2018-11-30] MEDS: SENNOSIDES 8.6 MG TAB PO PRN (10:41)
[2018-11-30] MEDS: SODIUM CHLORIDE 0.9% 1,000 ML IV SCH (10:41)
--- NOTE | 2018-11-30 11:48 | PN ---
PROGRESS NOTE ADDENDUM: Critical care time is 32 minutes. [place] / STEFFI: [id number] /
--- NOTE | 2018-11-30 11:57 | PN ---
PROGRESS NOTE DATE OF SERVICE: 11/30/2018 This is a 73-year-old female, looks older than her stated age, who was admitted back on November 25 for complete heart block and possible aspiration pneumonia. The patient is currently on 3 L nasal cannula. When she is on her BiPAP, her settings are 15 and 10 and 35%. Her chest x-ray shows evidence of fluid overload and she has got bilateral pleural effusions. Her IV is a saline IV at 50 mL an hour. I have asked the nurses to turn down to KVO. She does have a transvenous pacemaker in place. She has a history of bilateral lower lobe aspiration pneumonia, severe sepsis, complete heart block, fluid overload, acute respiratory failure with hypoxemia, lactic acidosis, hyponatremia, acute renal failure, shock liver, and a SIRS-like process. I am seeing her today for Dr. Diaz who is off. She has been previously seen by him and some other doctors. Currently, the patient appears relatively stable. Current vital signs are reviewed. They include a temperature of 97.8, heart rate which is 80, respiratory rate 22, blood pressure 116/63, and saturation on 3 L of 96%. The patient is mildly tachypneic and dyspneic. No acute respiratory distress. No use of accessory muscles. No audible wheezing. No nasal flaring. HEENT examination is grossly unremarkable. Nasal O2 in place. Neck is soft. Full range of motion. No adenopathy or thyromegaly. Neck veins are flat. Cardiovascular examination reveals distant heart sounds. Heart rate about 80. S1, S2 normal. No distinct murmur. Lungs reveal a few scattered coarse inspiratory and expiratory rhonchi. There is some mild expiratory wheezes. No crackles. Breath sounds are diminished throughout. Abdomen is obese. Bowel sounds are heard. Extremities are intact. Mild edema. Skin without rash. Neurologic examination is brief but nonfocal. Microbiologic studies show blood cultures positive for coag-negative staph on November 25. Lab data is reviewed. White count 7.5, hemoglobin 9, hematocrit 28.5, platelet count normal. Sodium 135, potassium 3.7, chloride 98, CO2 is 34. BUN and creatinine were 24 and 0.79. Anion gap is 3, which is normal. The chest x-ray is reviewed. It shows basilar pleural effusions and compressive atelectasis. There is pulmonary venous congestion. No focal infiltrate. MEDICATIONS: Reviewed. She is currently on a number of different medications including albuterol nebulized, Xanax, Wellbutrin, Maxipime, Decadron, Cymbalta, vitamin D2, Pepcid, folic acid, Lasix, insulin, Keppra, magnesium replacement, Singulair, Narcan, Zofran, potassium replacement, Compazine, Senokot, and vancomycin. ASSESSMENT: 1. Hypoxemic respiratory failure, improved. 2. Bilateral lower lobe aspiration pneumonia. 3. Severe sepsis. 4. Severe complete heart block status post transvenous pacemaker. 5. Fluid overload/CHF. 6. Acute respiratory failure. 7. Lactic acidosis. 8. Hyponatremia, resolved. 9. Acute renal failure, improved. 10.Shock liver. 11.Systemic inflammatory response syndrome. 12.Anemia. PLAN: The patient's medications are reviewed. No additional recommendations are made. The Levophed and dopamine have been turned off. The patient remains on BiPAP and oxygen. The plan is to remove the transvenous pacemaker today. We will continue to follow. Prognosis is guarded. The coag-negative staph in the blood cultures were likely a contaminant. She is on antibiotics currently. MMODL / IJN: [id number] /
[2018-11-30 12:04] LABS: Glucose,Whole Blood 138 mg/dL (75-99)
[2018-11-30] MEDS: FOLIC ACID 1 MG TAB PO SCH (12:57)
[2018-11-30] MEDS ORDERED: VANCOMYCIN TROUGH DUE 1 EACH MISC MISCELLANE ONE (15:00)
[2018-11-30 16:02] LABS: Albumin 2.5 g/dL (3.5-5.0); Calcium 7.9 mg/dL (8.4-10.2); Potassium 4.3 mmol/L (3.5-5.1); Total Bilirubin 0.2 mg/dL (0.2-1.3)
[2018-11-30] MEDS: VANCOMYCIN 2,250 MG in SODIUM CHLORIDE 0.9% 500 ML 500 ML IVPB SCH (16:29)
[2018-11-30 17:42] LABS: Glucose,Whole Blood 157 mg/dL (75-99)
[2018-11-30] MEDS: methylPREDNISolone SOD SUCCI 125 MG/2 ML VIAL IV SCH (17:47)
--- NOTE | 2018-11-30 18:24 | PN ---
PROGRESS NOTE DATE OF SERVICE: 11/30/2018 She was seen on 11/30/2018. She is quite short of breath and has audible wheezing. She has been on and off BiPAP and has a temporary pacemaker. She is sitting up in bed, in moderate respiratory distress. On physical examination, respiratory rate is 24, pulse of 86, temperature 97.8, blood pressure 124/62. O2 saturation on 3 L by nasal cannula is 94%. HEENT reveals a short, thick neck. Chest reveals expiratory wheeze. Cardiovascular system revealed an S1, S2. Abdomen is soft. There is 1+ to 2+ pedal edema. Sodium is 134, potassium 4.3, chloride 95, bicarb 35, BUN 24, creatinine 0.77. Chest x- ray shows evidence of chronic changes. IMPRESSION: At this time is: 1. Bradycardia status post temporary pacemaker insertion due to high-grade third- degree AV block. 2. Acute respiratory failure with aspiration pneumonia, status post being on the vent and subsequently extubated. 3. Bronchospasm. 4. Obstructive sleep apnea with sleep-disordered breathing. 5. Obesity. At this point in time, add subcu heparin for DVT prophylaxis. Continue GI prophylaxis. Add a short course of steroids. Hopefully, aerosolized steroids, bronchodilators. Optimize her fluid status. Depending on how she does, further changes to her care will need to be made. MMASHLEIGHL / IJN: [id number] /
[2018-11-30] MEDS: BUDESONIDE 0.5 MG/2 ML NEBU INHALATION SCH (20:28)
[2018-11-30] MEDS: HEPARIN SODIUM,PORCINE 5,000 UNIT/ML 1 ML VIAL SQ SCH (20:48)
[2018-12-01 00:03] LABS: Glucose,Whole Blood 193 mg/dL (75-99)
[2018-12-01] MEDS: methylPREDNISolone SOD SUCCI 125 MG/2 ML VIAL IV SCH ×5 (00:44→23:13)
[2018-12-01] MEDS: INSULIN ASPART 100 UNIT/ML 1 ML 10 ML VIAL SQ SCH ×5 (00:44→23:13)
[2018-12-01 04:42] LABS: Basophils % (A) 0 %; Eosinophils % (A) 0 %; HCT 29.2 % (34.0-46.0); HGB 9.5 gm/dL (11.4-16.0); Lymphocytes # (A) 0.3 k/uL (1.0-4.8); Lymphocytes % (A) 4 %; MCH 28.5 pg (25.0-35.0); MCHC 32.5 g/dL (31.0-37.0); MCV 87.6 fL (80.0-100.0); Mean Platelet Volume 6.9; Monocytes # (A) 0.2 k/uL (0-1.0); Monocytes % (A) 2 %; Neutrophils # (A) 6.8 k/uL (1.3-7.7); Neutrophils % (A) 93 %; Platelet Count 193 k/uL (150-450); RBC 3.33 m/uL (3.80-5.40); RDW 14.6 % (11.5-15.5); WBC 7.3 k/uL (3.8-10.6)
[2018-12-01 05:02] LABS: Anion Gap 3 mmol/L; Blood Urea Nitrogen 25 mg/dL (7-17); Calcium 8.2 mg/dL (8.4-10.2); Carbon Dioxide 35 mmol/L (22-30); Chloride 96 mmol/L (98-107); Glucose 169 mg/dL (74-99); Magnesium 2.1 mg/dL (1.6-2.3); Phosphorus 3.2 mg/dL (2.5-4.5); Potassium 4.7 mmol/L (3.5-5.1); Sodium 134 mmol/L (137-145)
--- NOTE | 2018-12-01 07:10 | XR ---
EXAMINATION TYPE: XR chest 1V portable DATE OF EXAM: 12/01/2018 COMPARISON: 11/30/2018 HISTORY: Shortness of breath TECHNIQUE: Single frontal view of the chest is obtained. FINDINGS: There is a similar appearing small to moderate layering left pleural effusion with meniscu s sign and left basilar retrocardiac consolidation. There is blunting of the right costophrenic angle . Right internal jugular central venous catheter is unchanged in position. Cardia mediastinal silhoue tte is partially obscured but mildly enlarged. Left upper lung atelectasis and/or parenchymal scarrin g is noted. Very minimal pulmonary vascular congestion is seen. IMPRESSION: Findings favoring decompensated congestive heart failure with trace right and small to m oderate left pleural effusions and minimal pulmonary vascular congestion in combination with cardiome cyndy.
[2018-12-01 07:14] LABS: Glucose,Whole Blood 181 mg/dL (75-99)
[2018-12-01] MEDS: BUDESONIDE 0.5 MG/2 ML NEBU INHALATION SCH (07:52)
[2018-12-01] MEDS: ALBUTEROL NEBULIZED 2.5 MG/3 ML INHALATION SCH ×4 (07:52→19:44)
[2018-12-01] MEDS: levETIRAcetam 500 MG TAB PO SCH ×2 (09:14→20:57)
[2018-12-01] MEDS: MONTELUKAST 10 MG TAB PO SCH (09:14)
[2018-12-01] MEDS: ERGOCALCIFEROL 50,000 UNIT CAP PO SCH (09:15)
[2018-12-01] MEDS: CEFEPIME 2 GM in SODIUM CHLORIDE 0.9% 50 ML IVPB SCH ×2 (09:15→20:55)
[2018-12-01] MEDS: buPROPion SR 100 MG TABLET.ER PO SCH (09:15)
[2018-12-01] MEDS: DULoxetine HCL 30 MG CAPSULE.DR PO SCH (09:15)
[2018-12-01] MEDS: HEPARIN SODIUM,PORCINE 5,000 UNIT/ML 1 ML VIAL SQ SCH ×2 (09:21→20:57)
[2018-12-01] MEDS: FUROSEMIDE 10 MG/ML 4 ML VIAL IV SCH ×2 (09:21→20:56)
[2018-12-01] MEDS: FAMOTIDINE 20 MG/2 ML VIAL IV SCH (09:21)
--- NOTE | 2018-12-01 10:47 | P.PN ---
Subjective Patient has been next period. She is mildly short of breath with bilateral rhonchi over lung nolan No chest discomfort dizziness lightheadedness She has an underlying sinus rhythm with left bundle branch block pattern no further evidence of AV block not using template pacemaker which was programmed at 40 beats a minute I removed the TVP today and the venous sheaths will be removed too Labs are reviewed sodium 134 potassium 4.7 BUN 25 creatinine 0.6 ninth Impression Patient with multiple medical problems and intermittent heart block for no clear -cut reason. She has not required any pacing after the first 24 hours of placement. She is off all pressors Continue observation for now Objective - Vital Signs Vital signs: Vital Signs Temp 98.8 F 12/01/18 08:00 Pulse 92 12/01/18 10:00 Resp 13 12/01/18 10:00 BP 121/76 12/01/18 10:00 Pulse Ox 97 12/01/18 10:00 Intake & Output 11/30/18 12/01/18 12/01/18 18:59 06:59 18:59 Intake Total 425 463 163 Output Total 1478 445 390 Balance -1053 18 -227 Weight 123.5 kg 123.5 kg Intake: IV 425 463 163 0.9 110 Pressure bag 30 223 63 Sodium Chloride 0.9% 1, 285 240 100 000 ml @ 20 mls/hr IV . Q24H [facility] Rx#:[id number] Output: Urine 1478 445 390 Other: Voiding Method Indwelling Catheter Indwelling Catheter ABP, PAP, CO, CI - Last Documented Arterial Blood Pressure 117/67 - Labs CBC & Chem 7: 12/01/18 04:15 12/01/18 04:15 Labs: Abnormal Lab Results - Last 24 Hours (Table) 11/30/18 11/30/18 11/30/18 Range/Units 11:52 15:44 17:30 RBC (3.80-5.40) m/uL Hgb (11.4-16.0) gm/dL Hct (34.0-46.0) % Lymphocytes # (1.0-4.8) k/uL Sodium 134 L (137-145) mmol/L Chloride 95 L (98-107) mmol/L Carbon Dioxide 35 H (22-30) mmol/L BUN 24 H (7-17) mg/dL Glucose 175 H (74-99) mg/dL POC Glucose (mg/dL) 138 H 157 H (75-99) mg/dL Calcium 7.9 L (8.4-10.2) mg/dL Total Protein 5.0 L (6.3-8.2) g/dL Albumin 2.5 L (3.5-5.0) g/dL 11/30/18 12/01/18 12/01/18 Range/Units 23:51 04:15 04:15 RBC 3.33 L (3.80-5.40) m/uL Hgb 9.5 L (11.4-16.0) gm/dL Hct 29.2 L (34.0-46.0) % Lymphocytes # 0.3 L (1.0-4.8) k/uL Sodium 134 L (137-145) mmol/L Chloride 96 L (98-107) mmol/L Carbon Dioxide 35 H (22-30) mmol/L BUN 25 H (7-17) mg/dL Glucose 169 H (74-99) mg/dL POC Glucose (mg/dL) 193 H (75-99) mg/dL Calcium 8.2 L (8.4-10.2) mg/dL Total Protein (6.3-8.2) g/dL Albumin (3.5-5.0) g/dL 12/01/18 Range/Units 07:03 RBC (3.80-5.40) m/uL Hgb (11.4-16.0) gm/dL Hct (34.0-46.0) % Lymphocytes # (1.0-4.8) k/uL Sodium (137-145) mmol/L Chloride (98-107) mmol/L Carbon Dioxide (22-30) mmol/L BUN (7-17) mg/dL Glucose (74-99) mg/dL POC Glucose (mg/dL) 181 H (75-99) mg/dL Calcium (8.4-10.2) mg/dL Total Protein (6.3-8.2) g/dL Albumin (3.5-5.0) g/dL Microbiology - Last 24 Hours (Table) 11/25/18 18:46 Blood Culture Gram Stain - Final Blood Blood Culture - Final Staphylococcus epidermidis
--- NOTE | 2018-12-01 11:37 | P.PN ---
Subjective Progress Note Date: 12/01/18 73-year-old female who was seen evaluated examined on medical floor, this patient admitted into the hospital earlier this morning with problems associated with nauseous feeling and nasopharyngeal swab for influenza A and B were both negative, her symptoms started a day before she has not been taking able to take anything by mouth she is not taking her home medication as well, patient has been having looser stool as well overall symptoms appeared to be like gastroenteritis however no bloody diarrhea has been noted, patient denies any emesis denies any abdominal pain and on specific questioning denies any chest pain or radiation of pain, she does have a history of COPD and chronic persistent asthma, patient also has a history of hypertension hypertensive cardiovascular disease and advanced steroid-dependent rheumatoid arthritis, she has not been formally evaluated for sleep disorder breathing and sleep apnea, on medical floor patient was found to be bradycardic which was a significant change compared to her admit vitals, patient was however hemodynamically stable but due to significant bradycardia transferred to the selective care/ICU if no bed is available consult with cardiology has been also initiated, they felt that patient to be monitored and observed dopamine/dopamine and check agents were not initiated as patient was hemodynamically stable and bradycardia thought to be related to exaggerated vagal response, review of the data also revealed that patient is hyponatremic, initial EKG revealed sinus tachycardia with left bundle branch block and currently developed high degree AV block, patient failed to capture external pacemaker eventually due to severe restlessness and significant bradycardia was intubated and cardiovascular services took her to the Lab at transvenous temporary pacemaker has been inserted through the groin, and A-line has been inserted by the anesthesia, patient only has a single lumen groin catheter through which transvenous pacemaker is present being infused with 10 mics of levo fed as well as dopamine to keep map around 65-70 patient is on full ventilator support initially patient was place on assist control rate of 20 tidal volume of 505 of PEEP 100% oxygen now rate is being cut down to 14 PEEP is 5 FiO2 Is Lowered down to 50%, 11/26/2018 patient seen eval reexamined during the rounds clinically patient remains sedated with propofol drip currently patient is on 20 mics able to come down however hemodynamic status remains marginal, patient require 100% pacing as without heart rate drops down to less than 30, patient is also on levo fed drip 35 mics, and dopamine drip 10 mics, currently maintenance IV fluids 50 mL an hour being given, patient has been found to be hypokalemic potassium has been replaced, chest x-ray revealed a possible developing left lower lobe infiltrate cannot be excluded along with small effusion, on assist control rate of 12 breathing 12 tidal volume of 500, with PEEP of 5, FiO2 is down to 40%, chest x-ray reviewed laboratory data reviewed, critical care time spent 40 minutes 11/27/2018, patient seen eval examined during the rounds clinically patient is slightly improving terms of hemodynamics, the heart block has improvement, heart rate spontaneous is in 60s to 70s, blood pressure map remains over 60-70, patient however remains on dopamine which has been titrated down to 2 mics, the levo fed has been lowered down to 6 mics as well, patient is 15 mics of propofol she is arousable does open eyes, she remains on full vent setting with assist control 12 breathing 12 tidal volume is 500, PEEP is 5, oxygen is down to 40%, chest x-ray laboratory data reviewed, blood cultures appears to be contamination as coag-negative staph has been noted, ID service has been consulted, care plan discussed with the staff at length, cardiovascular services recommendations reviewed, critical care time spent 35 minutes 11/28/2018, patient seen eval examined during rounds clinically is now off of vasopressors dopamine levo fed has been discontinued, patient has been on assist control mode switched over to CPAP 5 pressure support of 10, patient is monitor and observe on the pressure support and CPAP, spontaneous tidal volume at 300 range respiratory rate in the low 20s, saturation remains 90%, patient is still somnolent but arousable, will plan to have extended weaning for one hour and then will check arterial blood gas which was reviewed as well patient tolerated the CPAP pressure trial and very well is being extubated, otherwise patient remains afebrile respiratory secretions stable labs x-rays and radiographic studies reviewed, patient appears to have component of anasarca 40 mg of Lasix IVs does being given will put patient on daily IV furosemide as well , critical care time spent 35 minutes 11/29/2018, patient seen eval reexamined during the rounds she has been successfully weaned and active extubated she is on supplemental oxygen very weak though, patient is still have a temperature transvenous pacemaker, which is set at 40, patient is back to her sinus rhythm, patient does have a history of sleep disorder breathing and sleep apnea as per discussion with the daughter she does not use her CPAP machine very regularly, I have educated them extensively at, patient remains on broad-spectrum antibiotics labs reviewed medications reviewed radiographic studies reviewed as well, chest x-ray revealed a small pleural effusion with right basal infiltrate cardiomegaly stable triple-lumen catheter 12/01/2018. Patient remains in the intensive care unit. Patient currently on 4 L. temporary pacemaker has been removed per cardiology services. Heart rate has remained stable. At this time patient denies any chest pain or shortness breath. Patient denies nausea vomiting or diarrhea. Patient denies any urinary burning or frequency Objective - Vital Signs Vital signs: Vital Signs Temp 98.8 F 12/01/18 08:00 Pulse 77 12/01/18 11:00 Resp 16 12/01/18 11:00 BP 127/65 12/01/18 11:00 Pulse Ox 97 12/01/18 11:00 Intake & Output 11/30/18 12/01/18 12/01/18 18:59 06:59 18:59 Intake Total 425 463 203 Output Total 1478 445 740 Balance -1053 18 -537 Weight 123.5 kg 123.5 kg Intake: IV 425 463 203 0.9 110 Pressure bag 30 223 83 Sodium Chloride 0.9% 1, 285 240 120 000 ml @ 20 mls/hr IV . Q24H [facility] Rx#:[id number] Output: Urine 1478 445 740 Other: Voiding Method Indwelling Catheter Indwelling Catheter Indwelling Catheter ABP, PAP, CO, CI - Last Documented Arterial Blood Pressure 117/67 - Exam Head normocephalic Neck supple Lungs diminished bilaterally with expiratory wheezing Heart regular rate and rhythm S1-S2, no rub or gallop Abdomen is soft nontender nondistended positive bowel sounds no hepatosplenomegaly Extremities no edema - Labs CBC & Chem 7: 12/01/18 04:15 12/01/18 04:15 Labs: Abnormal Lab Results - Last 24 Hours (Table) 11/30/18 11/30/18 11/30/18 Range/Units 11:52 15:44 17:30 RBC (3.80-5.40) m/uL Hgb (11.4-16.0) gm/dL Hct (34.0-46.0) % Lymphocytes # (1.0-4.8) k/uL Sodium 134 L (137-145) mmol/L Chloride 95 L (98-107) mmol/L Carbon Dioxide 35 H (22-30) mmol/L BUN 24 H (7-17) mg/dL Glucose 175 H (74-99) mg/dL POC Glucose (mg/dL) 138 H 157 H (75-99) mg/dL Calcium 7.9 L (8.4-10.2) mg/dL Total Protein 5.0 L (6.3-8.2) g/dL Albumin 2.5 L (3.5-5.0) g/dL 11/30/18 12/01/18 12/01/18 Range/Units 23:51 04:15 04:15 RBC 3.33 L (3.80-5.40) m/uL Hgb 9.5 L (11.4-16.0) gm/dL Hct 29.2 L (34.0-46.0) % Lymphocytes # 0.3 L (1.0-4.8) k/uL Sodium 134 L (137-145) mmol/L Chloride 96 L (98-107) mmol/L Carbon Dioxide 35 H (22-30) mmol/L BUN 25 H (7-17) mg/dL Glucose 169 H (74-99) mg/dL POC Glucose (mg/dL) 193 H (75-99) mg/dL Calcium 8.2 L (8.4-10.2) mg/dL Total Protein (6.3-8.2) g/dL Albumin (3.5-5.0) g/dL 12/01/18 Range/Units 07:03 RBC (3.80-5.40) m/uL Hgb (11.4-16.0) gm/dL Hct (34.0-46.0) % Lymphocytes # (1.0-4.8) k/uL Sodium (137-145) mmol/L Chloride (98-107) mmol/L Carbon Dioxide (22-30) mmol/L BUN (7-17) mg/dL Glucose (74-99) mg/dL POC Glucose (mg/dL) 181 H (75-99) mg/dL Calcium (8.4-10.2) mg/dL Total Protein (6.3-8.2) g/dL Albumin (3.5-5.0) g/dL Microbiology - Last 24 Hours (Table) 11/25/18 18:46 Blood Culture Gram Stain - Final Blood Blood Culture - Final Staphylococcus epidermidis Assessment and Plan Assessment: 1. Bilateral lower lobe aspiration pneumonia. Chest x-ray completed showing findings favoring decompensated congestive heart failure with trace right and small to moderate left pleural effusions and minimal pulmonary vascular congestion and commendation with cardiomegaly. Patient is currently on Lasix IV daily. Patient also on Solu-Medrol 60 mg every 6 hours 2. Severe sepsis. Patient remains off pressors. Lactic acid 5.3. Repeat 3.0 Blood culture currently growing Staphylococcus epidermidis. Dr. Robins has been consulted for infectious disease. remains on Maxipime and vancomycin. 3. Severe complete third-degree high-grade AV block. Patient did have TVP in place. TVP has been pulled per cardiology services 4. Fluid overload and generalized anasarca. Maintained IV Lasix 5. Acute respiratory failure related to above. Patient has been extubated to [address] Sánchez has been following for intensive care and pulmonary services 6. Lactic acidosis secondary due to due to poor perfusion and cardiogenic shock 7. Hyponatremia. Improving to 134 8. Acute renal failure stage III. Creatinine 0.69 and bun 25 9. History of essential hypertension 10. History of osteoarthritis 11. History of anxiety and depression DVT prophylaxis heparin. GI prophylaxis pepcid I performed an examination of the patient and discussed their management with the Nurse Practitioner. I have reviewed the Nurse Practitioner's notes and agree with the documented findings and plan of care
[2018-12-01 11:43] LABS: Glucose,Whole Blood 251 mg/dL (75-99)
[2018-12-01] MEDS: FOLIC ACID 1 MG TAB PO SCH (12:42)
[2018-12-01] MEDS: SODIUM CHLORIDE 0.9% 1,000 ML IV SCH (12:45)
--- NOTE | 2018-12-01 15:34 | P.PN ---
Subjective Progress Note Date: 12/01/18 Principal diagnosis: Bilateral aspiration pneumonia, and diastolic congestive heart failure This is a 73-year-old female I'm seeing today on 12/01/2018, patient was admitted almost a week ago with complete heart block and aspiration pneumonia some component of diastolic congestive heart failure/fluid overload. Patient was followed all along by Dr. Diaz, and she was seen yesterday by Dr. Sánchez who was covering Dr. Diaz while the patient is in the ICU. Patient had aspiration pneumonia, sepsis, complete heart block, fluid overload, acute respiratory failure with hypoxemia, lactic acidosis, acute renal failure, shock liver, and she was eventually extubated the day before yesterday. Remains in the ICU, she is on nasal cannula, and she has BiPAP at bedside to be used during sleep time. Patient is feeling good, she has cough and wheezing, but she denies being short of breath. She is extremely pleasant. Again she is basically asymptomatic. Chest x-ray was reviewed and it showed congestive heart failure changes with trace of right and [id number] left pleural effusion with pulmonary vascular congestion again it is mostly consistent with diastolic congestive heart failure. Labs were reviewed, she had a relatively normal CBC hemoglobin is 9.5 left lites are normal bicarb is 35 BUN is 25 creatinine 0.69. All meds were reviewed remains on bronchodilators, antibiotics, and I went ahead and increased her Lasix to 40 mg IV push every 12 hours. Objective - Vital Signs Vital signs: Vital Signs Temp 98.3 F 12/01/18 12:00 Pulse 87 12/01/18 14:00 Resp 24 12/01/18 14:00 BP 105/60 12/01/18 14:00 Pulse Ox 98 12/01/18 14:00 Intake & Output 11/30/18 12/01/18 12/01/18 18:59 06:59 18:59 Intake Total 425 463 263 Output Total 7317 489 8772 Balance -1053 18 -927 Weight 123.5 kg 123.5 kg Intake: IV 425 463 263 0.9 110 Pressure bag 30 223 83 Sodium Chloride 0.9% 1, 285 240 180 000 ml @ 20 mls/hr IV . Q24H [facility]AC[facility] Rx#:[id number] Output: Urine [id number] Other: Voiding Method Indwelling Catheter Indwelling Catheter Indwelling Catheter ABP, PAP, CO, CI - Last Documented Arterial Blood Pressure 117/67 - Exam Physical Exam: Revealed a 73-year-old female in no distress. On nasal cannula. Head: Atraumatic, normocephalic, looks slightly cushingoid. HEENT:[Neck is supple.] [No neck masses.] [No thyromegaly.] [No JVD.] PERRLA, EOMI, Chest: Diffuse crackles and rhonchi and wheezes noted bilaterally.] Cardiac Exam: [Normal S1 and S2, no S3 gallop, no murmur.] Abdomen: [Obese, Soft, nontender, no megaly, no rebound, no guarding, normal bowel sounds.] Extremities: [No clubbing, trace of bipedal edema, no cyanosis.] Neurological Exam: [No focal neurologic deficit.] Psychiatric: Normal mood, affect and mental status examination. Skin: No rashes. Normal turgor. - Labs CBC & Chem 7: 12/01/18 04:15 12/01/18 04:15 Labs: Abnormal Lab Results - Last 24 Hours (Table) 11/30/18 11/30/18 11/30/18 Range/Units 15:44 17:30 23:51 RBC (3.80-5.40) m/uL Hgb (11.4-16.0) gm/dL Hct (34.0-46.0) % Lymphocytes # (1.0-4.8) k/uL Sodium 134 L (137-145) mmol/L Chloride 95 L (98-107) mmol/L Carbon Dioxide 35 H (22-30) mmol/L BUN 24 H (7-17) mg/dL Glucose 175 H (74-99) mg/dL POC Glucose (mg/dL) 157 H 193 H (75-99) mg/dL Calcium 7.9 L (8.4-10.2) mg/dL Total Protein 5.0 L (6.3-8.2) g/dL Albumin 2.5 L (3.5-5.0) g/dL 12/01/18 12/01/18 12/01/18 Range/Units 04:15 04:15 07:03 RBC 3.33 L (3.80-5.40) m/uL Hgb 9.5 L (11.4-16.0) gm/dL Hct 29.2 L (34.0-46.0) % Lymphocytes # 0.3 L (1.0-4.8) k/uL Sodium 134 L (137-145) mmol/L Chloride 96 L (98-107) mmol/L Carbon Dioxide 35 H (22-30) mmol/L BUN 25 H (7-17) mg/dL Glucose 169 H (74-99) mg/dL POC Glucose (mg/dL) 181 H (75-99) mg/dL Calcium 8.2 L (8.4-10.2) mg/dL Total Protein (6.3-8.2) g/dL Albumin (3.5-5.0) g/dL 12/01/18 Range/Units 11:31 RBC (3.80-5.40) m/uL Hgb (11.4-16.0) gm/dL Hct (34.0-46.0) % Lymphocytes # (1.0-4.8) k/uL Sodium (137-145) mmol/L Chloride (98-107) mmol/L Carbon Dioxide (22-30) mmol/L BUN (7-17) mg/dL Glucose (74-99) mg/dL POC Glucose (mg/dL) 251 H (75-99) mg/dL Calcium (8.4-10.2) mg/dL Total Protein (6.3-8.2) g/dL Albumin (3.5-5.0) g/dL Microbiology - Last 24 Hours (Table) 11/25/18 18:46 Blood Culture Gram Stain - Final Blood Blood Culture - Final Staphylococcus epidermidis Assessment and Plan Assessment: Impression: 1: Acute aspiration pneumonia, leading to acute hypoxic respiratory failure, requiring intubation and mechanical ventilation. Presently the patient is on nasal cannula, and uses BiPAP at night. 2 acute sepsis secondary to pneumonia, suspect septic shock requiring pressors and fluid boluses at one point. 8 third-degree AV block requiring transvenous pacemaker/temporary. 3 fluid overload and generalized anasarca, acute diastolic congestive heart failure 4 acute on chronic renal failure stage III 5 shock liver 6 bacteremia/positive blood culture, however felt to be secondary to contamination 7 diastolic congestive heart failure hence more diuretics were added. 8 third-degree AV block requiring temporary transvenous pacemaker placement. Recommendation: Fully agree with the present treatment plan including antibiotics, bronchodilators, steroids, diuretics, GI and DVT prophylaxis, I did go ahead and increased the Lasix dose to 40 mg IV push every 12 hours. Continue to monitor closely in the ICU for the next 24 hours. Discussed her condition with her and her family at bedside. Chest x-ray was reviewed and discussed with the patient. Time with Patient: Less than 30
[2018-12-01] MEDS: VANCOMYCIN 2,250 MG in SODIUM CHLORIDE 0.9% 500 ML 500 ML IVPB SCH (16:56)
[2018-12-01] MEDS: BUDESONIDE 1 MG/2 ML NEBU INHALATION SCH (19:46)
[2018-12-01] MEDS: ALPRAZolam 0.25 MG TAB PO PRN (22:19)
[2018-12-01 23:04] LABS: Glucose,Whole Blood 211 mg/dL (75-99)
--- NOTE | 2018-12-01 23:34 | PN ---
PROGRESS NOTE DATE OF SERVICE: 12/01/2018. REASON FOR FOLLOWUP: Pneumonia. Question of possible aspiration. INTERVAL HISTORY: The patient is afebrile. The patient has been extubated. She is breathing comfortably. Cough has decreased in intensity. No chest pain. No abdominal pain. No diarrhea. PHYSICAL EXAMINATION: Blood pressure 124/60 with a pulse of 89, temperature 99.7, she is 99% on 2 L nasal cannula. GENERAL DESCRIPTION: An elderly female lying in bed in no distress. RESPIRATORY SYSTEM: Unlabored breathing. Decreased breath sounds at the bases. No wheeze. HEART: S1, S2. Regular rate and rhythm. LABS: Hemoglobin 9.5, white count 7.3, BUN of 25, creatinine 0.69. Sputum has usual respiratory real. Blood cultures with Staph epi. DIAGNOSTIC IMPRESSION/PLAN: Patient with fever after acute respiratory failure vent-dependent with question of possible aspiration pneumonia of gram-negative. Patient is currently covered with cefepime as no MRSA has been grown. She will discontinue the vancomycin to decrease risk of nephrotoxicity. The patient seemed to be showing overall clinical improvement. Continue supportive care. MMODL / IJN: [id number] /
[2018-12-02] MEDS: methylPREDNISolone SOD SUCCI 125 MG/2 ML VIAL IV SCH ×3 (07:02→17:24)
[2018-12-02] MEDS: BUDESONIDE 1 MG/2 ML NEBU INHALATION SCH ×2 (07:05→19:55)
[2018-12-02] MEDS: ALBUTEROL NEBULIZED 2.5 MG/3 ML INHALATION SCH ×4 (07:05→19:55)
[2018-12-02 07:06] LABS: Basophils % (A) 0 %; Eosinophils # (A) 0.1 k/uL (0-0.7); Eosinophils % (A) 1 %; HCT 30.4 % (34.0-46.0); HGB 9.5 gm/dL (11.4-16.0); Lymphocytes # (A) 0.4 k/uL (1.0-4.8); Lymphocytes % (A) 4 %; MCH 27.9 pg (25.0-35.0); MCHC 31.4 g/dL (31.0-37.0); MCV 88.6 fL (80.0-100.0); Mean Platelet Volume 6.9; Monocytes # (A) 0.5 k/uL (0-1.0); Monocytes % (A) 5 %; Neutrophils # (A) 9.6 k/uL (1.3-7.7); Neutrophils % (A) 90 %; Platelet Count 283 k/uL (150-450); RBC 3.43 m/uL (3.80-5.40); RDW 14.6 % (11.5-15.5); WBC 10.7 k/uL (3.8-10.6)
[2018-12-02 07:27] LABS: Albumin 2.7 g/dL (3.5-5.0); Calcium 8.2 mg/dL (8.4-10.2); Potassium 4.8 mmol/L (3.5-5.1); Total Bilirubin 0.3 mg/dL (0.2-1.3); Total Protein 5.2 g/dL (6.3-8.2)
[2018-12-02 07:35] LABS: Glucose,Whole Blood 204 mg/dL (75-99)
[2018-12-02] MEDS: INSULIN ASPART 100 UNIT/ML 1 ML 10 ML VIAL SQ SCH ×4 (08:39→22:29)
[2018-12-02] MEDS: FAMOTIDINE 20 MG/2 ML VIAL IV SCH (08:40)
[2018-12-02] MEDS: FUROSEMIDE 10 MG/ML 4 ML VIAL IV SCH ×2 (08:40→21:30)
[2018-12-02] MEDS: ALPRAZolam 0.25 MG TAB PO PRN ×3 (08:41→21:33)
[2018-12-02] MEDS: levETIRAcetam 500 MG TAB PO SCH ×2 (08:41→21:33)
[2018-12-02] MEDS: MONTELUKAST 10 MG TAB PO SCH (08:41)
[2018-12-02] MEDS: HEPARIN SODIUM,PORCINE 5,000 UNIT/ML 1 ML VIAL SQ SCH ×2 (08:41→21:30)
[2018-12-02] MEDS: buPROPion SR 100 MG TABLET.ER PO SCH (08:41)
[2018-12-02] MEDS: DULoxetine HCL 30 MG CAPSULE.DR PO SCH (08:41)
[2018-12-02] MEDS: CEFEPIME 2 GM in SODIUM CHLORIDE 0.9% 50 ML IVPB SCH ×2 (08:41→21:26)
[2018-12-02] MEDS: SODIUM CHLORIDE 0.9% 1,000 ML IV SCH (10:14)
--- NOTE | 2018-12-02 11:43 | P.PN ---
Subjective Progress Note Date: 12/02/18 73-year-old female who was seen evaluated examined on medical floor, this patient admitted into the hospital earlier this morning with problems associated with nauseous feeling and nasopharyngeal swab for influenza A and B were both negative, her symptoms started a day before she has not been taking able to take anything by mouth she is not taking her home medication as well, patient has been having looser stool as well overall symptoms appeared to be like gastroenteritis however no bloody diarrhea has been noted, patient denies any emesis denies any abdominal pain and on specific questioning denies any chest pain or radiation of pain, she does have a history of COPD and chronic persistent asthma, patient also has a history of hypertension hypertensive cardiovascular disease and advanced steroid-dependent rheumatoid arthritis, she has not been formally evaluated for sleep disorder breathing and sleep apnea, on medical floor patient was found to be bradycardic which was a significant change compared to her admit vitals, patient was however hemodynamically stable but due to significant bradycardia transferred to the selective care/ICU if no bed is available consult with cardiology has been also initiated, they felt that patient to be monitored and observed dopamine/dopamine and check agents were not initiated as patient was hemodynamically stable and bradycardia thought to be related to exaggerated vagal response, review of the data also revealed that patient is hyponatremic, initial EKG revealed sinus tachycardia with left bundle branch block and currently developed high degree AV block, patient failed to capture external pacemaker eventually due to severe restlessness and significant bradycardia was intubated and cardiovascular services took her to the Lab at transvenous temporary pacemaker has been inserted through the groin, and A-line has been inserted by the anesthesia, patient only has a single lumen groin catheter through which transvenous pacemaker is present being infused with 10 mics of levo fed as well as dopamine to keep map around 65-70 patient is on full ventilator support initially patient was place on assist control rate of 20 tidal volume of 505 of PEEP 100% oxygen now rate is being cut down to 14 PEEP is 5 FiO2 Is Lowered down to 50%, 11/26/2018 patient seen eval reexamined during the rounds clinically patient remains sedated with propofol drip currently patient is on 20 mics able to come down however hemodynamic status remains marginal, patient require 100% pacing as without heart rate drops down to less than 30, patient is also on levo fed drip 35 mics, and dopamine drip 10 mics, currently maintenance IV fluids 50 mL an hour being given, patient has been found to be hypokalemic potassium has been replaced, chest x-ray revealed a possible developing left lower lobe infiltrate cannot be excluded along with small effusion, on assist control rate of 12 breathing 12 tidal volume of 500, with PEEP of 5, FiO2 is down to 40%, chest x-ray reviewed laboratory data reviewed, critical care time spent 40 minutes 11/27/2018, patient seen eval examined during the rounds clinically patient is slightly improving terms of hemodynamics, the heart block has improvement, heart rate spontaneous is in 60s to 70s, blood pressure map remains over 60-70, patient however remains on dopamine which has been titrated down to 2 mics, the levo fed has been lowered down to 6 mics as well, patient is 15 mics of propofol she is arousable does open eyes, she remains on full vent setting with assist control 12 breathing 12 tidal volume is 500, PEEP is 5, oxygen is down to 40%, chest x-ray laboratory data reviewed, blood cultures appears to be contamination as coag-negative staph has been noted, ID service has been consulted, care plan discussed with the staff at length, cardiovascular services recommendations reviewed, critical care time spent 35 minutes 11/28/2018, patient seen eval examined during rounds clinically is now off of vasopressors dopamine levo fed has been discontinued, patient has been on assist control mode switched over to CPAP 5 pressure support of 10, patient is monitor and observe on the pressure support and CPAP, spontaneous tidal volume at 300 range respiratory rate in the low 20s, saturation remains 90%, patient is still somnolent but arousable, will plan to have extended weaning for one hour and then will check arterial blood gas which was reviewed as well patient tolerated the CPAP pressure trial and very well is being extubated, otherwise patient remains afebrile respiratory secretions stable labs x-rays and radiographic studies reviewed, patient appears to have component of anasarca 40 mg of Lasix IVs does being given will put patient on daily IV furosemide as well , critical care time spent 35 minutes 11/29/2018, patient seen eval reexamined during the rounds she has been successfully weaned and active extubated she is on supplemental oxygen very weak though, patient is still have a temperature transvenous pacemaker, which is set at 40, patient is back to her sinus rhythm, patient does have a history of sleep disorder breathing and sleep apnea as per discussion with the daughter she does not use her CPAP machine very regularly, I have educated them extensively at, patient remains on broad-spectrum antibiotics labs reviewed medications reviewed radiographic studies reviewed as well, chest x-ray revealed a small pleural effusion with right basal infiltrate cardiomegaly stable triple-lumen catheter 12/01/2018. Patient remains in the intensive care unit. Patient currently on 4 L. temporary pacemaker has been removed per cardiology services. Heart rate has remained stable. At this time patient denies any chest pain or shortness breath. Patient denies nausea vomiting or diarrhea. Patient denies any urinary burning or frequency on 12/02/2018 patient remains in the intensive care unit. Patient is currently sleeping with BiPAP in place. Patient's heart rate has remained within normal limits. At this time patient denies chest pain or shortness of breath. Patient denies nausea vomiting or diarrhea. Patient denies any urinary burning or frequency. Per nursing staff patient did have a bout of confusion throughout night which is not the first occurrence Objective - Vital Signs Vital signs: Vital Signs Temp 97 F L 12/02/18 08:00 Pulse 81 12/02/18 11:19 Resp 18 12/02/18 11:00 BP 138/91 12/02/18 09:00 Pulse Ox 95 12/02/18 11:00 Intake & Output 12/01/18 12/02/18 12/02/18 18:59 06:59 18:59 Intake Total 343 240 150 Output Total 1350 1850 1300 Balance -1007 1610 -1150 Weight 123.5 kg 126.5 kg Intake: IV 343 240 100 Pressure bag 83 Sodium Chloride 0.9% 1, 260 240 100 000 ml @ 20 mls/hr IV . Q24H [facility] Rx#:[id number] Intake, IV Titration 50 Amount Cefepime 2 gm In Sodium 50 Chloride 0.9% 50 ml @ 100 mls/hr IVPB Q12HR [facility] Rx #:[id number] Output: Urine 1350 1850 1300 Other: Voiding Method Indwelling Catheter Indwelling Catheter Indwelling Catheter ABP, PAP, CO, CI - Last Documented Arterial Blood Pressure 117/67 - Exam Head normocephalic Neck supple Lungs diminished bilaterally with expiratory wheezing Heart regular rate and rhythm S1-S2, no rub or gallop Abdomen is soft nontender nondistended positive bowel sounds no hepatosplenomegaly Extremities no edema - Labs CBC & Chem 7: 12/02/18 06:30 12/02/18 06:30 Labs: Abnormal Lab Results - Last 24 Hours (Table) 12/01/18 12/01/18 12/02/18 Range/Units 11:31 22:52 06:30 WBC 10.7 H (3.8-10.6) k/uL RBC 3.43 L (3.80-5.40) m/uL Hgb 9.5 L (11.4-16.0) gm/dL Hct 30.4 L (34.0-46.0) % Neutrophils # 9.6 H (1.3-7.7) k/uL Lymphocytes # 0.4 L (1.0-4.8) k/uL Sodium (137-145) mmol/L Carbon Dioxide (22-30) mmol/L BUN (7-17) mg/dL Glucose (74-99) mg/dL POC Glucose (mg/dL) 251 H 211 H (75-99) mg/dL Calcium (8.4-10.2) mg/dL Total Protein (6.3-8.2) g/dL Albumin (3.5-5.0) g/dL 12/02/18 12/02/18 Range/Units 06:30 07:23 WBC (3.8-10.6) k/uL RBC (3.80-5.40) m/uL Hgb (11.4-16.0) gm/dL Hct (34.0-46.0) % Neutrophils # (1.3-7.7) k/uL Lymphocytes # (1.0-4.8) k/uL Sodium 134 L (137-145) mmol/L Carbon Dioxide 33 H (22-30) mmol/L BUN 31 H (7-17) mg/dL Glucose 181 H (74-99) mg/dL POC Glucose (mg/dL) 204 H (75-99) mg/dL Calcium 8.2 L (8.4-10.2) mg/dL Total Protein 5.2 L (6.3-8.2) g/dL Albumin 2.7 L (3.5-5.0) g/dL Microbiology - Last 24 Hours (Table) 11/25/18 18:46 Blood Culture Gram Stain - Final Blood Blood Culture - Final Staphylococcus epidermidis Assessment and Plan Assessment: 1. Acute aspiration pneumonia, leading to acute hypoxic respiratory failure, requiring intubation and mechanical ventilation. Chest x-ray completed showing findings favoring decompensated congestive heart failure with trace right and small to moderate left pleural effusions and minimal pulmonary vascular congestion and commendation with cardiomegaly. Patient is currently on Lasix IV daily. Patient also on Solu-Medrol 60 mg every 6 hours. Per pulmonary services Lasix has been increased to 40 twice a day 2. Acute sepsis secondary to pneumonia. Patient remains off pressors. Lactic acid 5.3. Repeat 3.0 Blood culture currently growing Staphylococcus epidermidis. Dr. Robins has been consulted for infectious disease. remains on Maxipime and vancomycin. 3. Severe complete third-degree high-grade AV block. Patient did have TVP in place. TVP has been pulled per cardiology services 4. Fluid overload and generalized anasarca. Maintained IV Lasix 5. Acute respiratory failure related to above. Patient has been extubated to [address] Sánchez has been following for intensive care and pulmonary services 6. Lactic acidosis secondary due to due to poor perfusion and cardiogenic shock 7. Hyponatremia. Improving to 134 8. Acute renal failure stage III. Creatinine 0.69 and bun 25 9. History of essential hypertension 10. History of osteoarthritis 11. History of anxiety and depression DVT prophylaxis heparin. GI prophylaxis pepcid I performed an examination of the patient and discussed their management with the Nurse Practitioner. I have reviewed the Nurse Practitioner's notes and agree with the documented findings and plan of care
[2018-12-02 12:00] LABS: Glucose,Whole Blood 175 mg/dL (75-99)
[2018-12-02] MEDS: FOLIC ACID 1 MG TAB PO SCH (12:08)
--- NOTE | 2018-12-02 12:10 | P.PN ---
Subjective Progress Note Date: 12/02/18 Principal diagnosis: Bilateral aspiration pneumonia, and diastolic congestive heart failure This is a 73-year-old female I'm seeing today on 12/01/2018, patient was admitted almost a week ago with complete heart block and aspiration pneumonia some component of diastolic congestive heart failure/fluid overload. Patient was followed all along by Dr. Diaz, and she was seen yesterday by Dr. Sánchez who was covering Dr. Diaz while the patient is in the ICU. Patient had aspiration pneumonia, sepsis, complete heart block, fluid overload, acute respiratory failure with hypoxemia, lactic acidosis, acute renal failure, shock liver, and she was eventually extubated the day before yesterday. Remains in the ICU, she is on nasal cannula, and she has BiPAP at bedside to be used during sleep time. Patient is feeling good, she has cough and wheezing, but she denies being short of breath. She is extremely pleasant. Again she is basically asymptomatic. Chest x-ray was reviewed and it showed congestive heart failure changes with trace of right and digcl-lv-yxapttje left pleural effusion with pulmonary vascular congestion again it is mostly consistent with diastolic congestive heart failure. Labs were reviewed, she had a relatively normal CBC hemoglobin is 9.5 left lites are normal bicarb is 35 BUN is 25 creatinine 0.69. All meds were reviewed remains on bronchodilators, antibiotics, and I went ahead and increased her Lasix to 40 mg IV push every 12 hours. Reevaluated today on 12/02/2018, patient remains in the ICU, she had some episodes of confusion last night, didn't require placement on BiPAP. However patient seems to be alert oriented 3 this morning, and she does not seem to be in any form of distress. Presently on BiPAP, she is on IPAP of 14 and EPAP of 6 , and her FiO2 is being titrated to keep O2 saturation above 90%. Her confusion seems to have resolved, but apparently she has been noted to have confusion every night. Labs were reviewed, she had a relatively normal electrolytes, normal renal profile, and normal CBC. Chest x-ray continues to show some evidence of congestive heart failure with trace and dupeo-[id number]-lntdbttc left pleural effusion and pulmonary congestion. Patient today denies any headache no blurred vision no dizziness, no cough no wheezing, no nausea no vomiting no abdominal pain. Objective - Vital Signs Vital signs: Vital Signs Temp 97 F L 12/02/18 08:00 Pulse 80 12/02/18 11:30 Resp 18 12/02/18 11:00 BP 138/91 12/02/18 09:00 Pulse Ox 95 12/02/18 11:00 Intake & Output 12/01/18 12/02/18 12/02/18 18:59 06:59 18:59 Intake Total 343 240 150 Output Total 1350 1850 1300 Balance -5319 -7408 -2050 Weight 123.5 kg 126.5 kg Intake: IV 343 240 100 Pressure bag 83 Sodium Chloride 0.9% 1, 260 240 100 000 ml @ 20 mls/hr IV . Q24H [facility] Rx#:[id number] Intake, IV Titration 50 Amount Cefepime 2 gm In Sodium 50 Chloride 0.9% 50 ml @ 100 mls/hr IVPB Q12HR [facility] Rx #:[id number] Output: Urine 1350 1850 1300 Other: Voiding Method Indwelling Catheter Indwelling Catheter Indwelling Catheter ABP, PAP, CO, CI - Last Documented Arterial Blood Pressure 117/67 - Exam Physical Exam: Revealed a 73-year-old female in no distress. On BiPAP. Head: Atraumatic, normocephalic, looks slightly cushingoid. HEENT:[Neck is supple.] [No neck masses.] [No thyromegaly.] [No JVD.] PERRLA, EOMI, Chest: Diffuse crackles and rhonchi and wheezes noted bilaterally.] Cardiac Exam: [Normal S1 and S2, no S3 gallop, no murmur.] Abdomen: [Obese, Soft, nontender, no megaly, no rebound, no guarding, normal bowel sounds.] Extremities: [No clubbing, trace of bipedal edema, no cyanosis.] Neurological Exam: [No focal neurologic deficit.] Psychiatric: Normal mood, affect and mental status examination. Skin: No rashes. Normal turgor. - Labs CBC & Chem 7: 12/02/18 06:30 12/02/18 06:30 Labs: Abnormal Lab Results - Last 24 Hours (Table) 12/01/18 12/02/18 12/02/18 Range/Units 22:52 06:30 06:30 WBC 10.7 H (3.8-10.6) k/uL RBC 3.43 L (3.80-5.40) m/uL Hgb 9.5 L (11.4-16.0) gm/dL Hct 30.4 L (34.0-46.0) % Neutrophils # 9.6 H (1.3-7.7) k/uL Lymphocytes # 0.4 L (1.0-4.8) k/uL Sodium 134 L (137-145) mmol/L Carbon Dioxide 33 H (22-30) mmol/L BUN 31 H (7-17) mg/dL Glucose 181 H (74-99) mg/dL POC Glucose (mg/dL) 211 H (75-99) mg/dL Calcium 8.2 L (8.4-10.2) mg/dL Total Protein 5.2 L (6.3-8.2) g/dL Albumin 2.7 L (3.5-5.0) g/dL 12/02/18 12/02/18 Range/Units 07:23 11:59 WBC (3.8-10.6) k/uL RBC (3.80-5.40) m/uL Hgb (11.4-16.0) gm/dL Hct (34.0-46.0) % Neutrophils # (1.3-7.7) k/uL Lymphocytes # (1.0-4.8) k/uL Sodium (137-145) mmol/L Carbon Dioxide (22-30) mmol/L BUN (7-17) mg/dL Glucose (74-99) mg/dL POC Glucose (mg/dL) 204 H 175 H (75-99) mg/dL Calcium (8.4-10.2) mg/dL Total Protein (6.3-8.2) g/dL Albumin (3.5-5.0) g/dL Microbiology - Last 24 Hours (Table) 11/25/18 18:46 Blood Culture Gram Stain - Final Blood Blood Culture - Final Staphylococcus epidermidis Assessment and Plan Assessment: Impression: 1: Acute aspiration pneumonia, leading to acute hypoxic respiratory failure, requiring intubation and mechanical ventilation. Presently the patient on BiPAP , however will switch her to a nasal cannula. 2 acute sepsis secondary to pneumonia, suspect septic shock requiring pressors and fluid boluses at one point. 8 third-degree AV block requiring transvenous pacemaker/temporary. 3 fluid overload and generalized anasarca, acute diastolic congestive heart failure 4 acute on chronic renal failure stage III 5 shock liver 6 bacteremia/positive blood culture, however felt to be secondary to contamination 7 diastolic congestive heart failure hence more diuretics were added. 8 third-degree AV block requiring temporary transvenous pacemaker placement. Recommendation: Considering the complex multiple medical problems as noted above , will Continue antibiotics, bronchodilators, steroids, diuretics, GI and DVT prophylaxis, I Continue to monitor closely in the ICU for the next 24 hours. Considering her overall status is marginal, and considering her confusion at night, and she is requiring to be on BiPAP, I will likely keep her in the ICU for the next 24 hours, and arrange for transfer possibly tomorrow to a regular medical floor. We'll continue to follow closely. Time with Patient: Less than 30
[2018-12-02 16:56] LABS: Glucose,Whole Blood 172 mg/dL (75-99)
[2018-12-02 21:54] LABS: Glucose,Whole Blood 165 mg/dL (75-99)
--- NOTE | 2018-12-02 23:47 | PN ---
PROGRESS NOTE DATE OF SERVICE: 12/02/2018 REASON FOR FOLLOWUP: Possible aspiration pneumonia. INTERVAL HISTORY: The patient is afebrile. However, she did require BiPAP today for her respiratory status. Hemodynamically stable. Not requiring any pressor support. She was slightly lethargic, unable to provide any history. No nausea, vomiting, or any diarrhea reported. PHYSICAL EXAMINATION: Blood pressure 144/74 with a pulse of 74, temperature 98.4. She is 94% on BiPAP. General description is an elderly female lying in bed in no distress. Respiratory system: Unlabored breathing with decreased breath sounds in the bases, no wheeze. Heart S1, S2. Regular rate and rhythm. ABDOMEN: Soft, no tenderness. LABS: Hemoglobin 9.5, white count 10.7, BUN of 31, creatinine 0.96, sputum has been usual respiratory real. DIAGNOSTIC IMPRESSION AND PLAN: Patient with fever with bilateral pulmonary infiltrate and question of possible aspiration pneumonitis. Sputum has been usual respiratory real. The patient is currently covered with Rocephin that will continue for now while waiting for the condition to stabilize. Continue supportive care. MMODL / IJN: [id number] /
[2018-12-03] MEDS: methylPREDNISolone SOD SUCCI 125 MG/2 ML VIAL IV SCH ×5 (00:49→23:49)
[2018-12-03 04:50] LABS: Basophils % (A) 0 %; Eosinophils # (A) 0.1 k/uL (0-0.7); Eosinophils % (A) 1 %; HGB 9.5 gm/dL (11.4-16.0); Lymphocytes # (A) 0.4 k/uL (1.0-4.8); Lymphocytes % (A) 4 %; MCH 27.6 pg (25.0-35.0); MCHC 31.6 g/dL (31.0-37.0); MCV 87.2 fL (80.0-100.0); Mean Platelet Volume 6.8; Monocytes # (A) 0.7 k/uL (0-1.0); Monocytes % (A) 7 %; Neutrophils # (A) 8.6 k/uL (1.3-7.7); Neutrophils % (A) 88 %; Platelet Count 270 k/uL (150-450); RBC 3.44 m/uL (3.80-5.40); RDW 14.7 % (11.5-15.5); WBC 9.7 k/uL (3.8-10.6)
[2018-12-03 07:03] LABS: Glucose,Whole Blood 176 mg/dL (75-99)
[2018-12-03] MEDS: BUDESONIDE 1 MG/2 ML NEBU INHALATION SCH ×2 (07:19→19:48)
[2018-12-03] MEDS: ALBUTEROL NEBULIZED 2.5 MG/3 ML INHALATION SCH ×4 (07:20→19:48)
[2018-12-03] MEDS: INSULIN ASPART 100 UNIT/ML 1 ML 10 ML VIAL SQ SCH ×4 (07:45→22:28)
[2018-12-03 08:45] LABS: Glucose,Whole Blood 517 mg/dL (75-99)
[2018-12-03 08:45] LABS: Glucose,Whole Blood 200 mg/dL (75-99)
[2018-12-03 08:45] LABS: Glucose,Whole Blood 182 mg/dL (75-99)
[2018-12-03 08:46] LABS: Glucose,Whole Blood 99 mg/dL (75-99)
[2018-12-03 08:46] LABS: Glucose,Whole Blood 101 mg/dL (75-99)
[2018-12-03] MEDS: CEFEPIME 2 GM in SODIUM CHLORIDE 0.9% 50 ML IVPB SCH ×2 (09:00→20:17)
[2018-12-03] MEDS: FAMOTIDINE 20 MG/2 ML VIAL IV SCH (09:01)
[2018-12-03] MEDS: HEPARIN SODIUM,PORCINE 5,000 UNIT/ML 1 ML VIAL SQ SCH ×2 (09:01→20:16)
[2018-12-03] MEDS: FUROSEMIDE 10 MG/ML 4 ML VIAL IV SCH ×2 (09:02→20:16)
[2018-12-03] MEDS: MONTELUKAST 10 MG TAB PO SCH (09:03)
[2018-12-03] MEDS: levETIRAcetam 500 MG TAB PO SCH ×2 (09:03→20:16)
[2018-12-03] MEDS: buPROPion SR 100 MG TABLET.ER PO SCH (09:34)
[2018-12-03] MEDS: DULoxetine HCL 30 MG CAPSULE.DR PO SCH (09:34)
--- NOTE | 2018-12-03 10:30 | XR ---
EXAMINATION TYPE: XR chest 1V portable DATE OF EXAM: 12/03/2018 Comparison: 12/01/2018 Clinical History: 73 year-old female follow-up CHF Findings: Right IJ CVC tip is at the cavoatrial junction. Heart remains enlarged with diffuse interstitial and vascular prominence. New fluid thickening the minor fissure and continued bilateral pleural effusions , likely [id number] in size. Impression: Continued changes of [id number]-al-[id number] CHF with pulmonary vascular congestion. Small to moderate pleur al effusions with adjacent atelectasis and/or consolidation also remain.
[2018-12-03 11:07] LABS: Albumin 2.8 g/dL (3.5-5.0); Calcium 8.3 mg/dL (8.4-10.2); Potassium 4.6 mmol/L (3.5-5.1); Total Bilirubin 0.3 mg/dL (0.2-1.3); Total Protein 5.4 g/dL (6.3-8.2)
[2018-12-03] MEDS: SODIUM CHLORIDE 0.9% 1,000 ML IV SCH (11:17)
--- NOTE | 2018-12-03 11:20 | P.PN ---
Subjective Progress Note Date: 12/03/18 73-year-old female who was seen evaluated examined on medical floor, this patient admitted into the hospital earlier this morning with problems associated with nauseous feeling and nasopharyngeal swab for influenza A and B were both negative, her symptoms started a day before she has not been taking able to take anything by mouth she is not taking her home medication as well, patient has been having looser stool as well overall symptoms appeared to be like gastroenteritis however no bloody diarrhea has been noted, patient denies any emesis denies any abdominal pain and on specific questioning denies any chest pain or radiation of pain, she does have a history of COPD and chronic persistent asthma, patient also has a history of hypertension hypertensive cardiovascular disease and advanced steroid-dependent rheumatoid arthritis, she has not been formally evaluated for sleep disorder breathing and sleep apnea, on medical floor patient was found to be bradycardic which was a significant change compared to her admit vitals, patient was however hemodynamically stable but due to significant bradycardia transferred to the selective care/ICU if no bed is available consult with cardiology has been also initiated, they felt that patient to be monitored and observed dopamine/dopamine and check agents were not initiated as patient was hemodynamically stable and bradycardia thought to be related to exaggerated vagal response, review of the data also revealed that patient is hyponatremic, initial EKG revealed sinus tachycardia with left bundle branch block and currently developed high degree AV block, patient failed to capture external pacemaker eventually due to severe restlessness and significant bradycardia was intubated and cardiovascular services took her to the Lab at transvenous temporary pacemaker has been inserted through the groin, and A-line has been inserted by the anesthesia, patient only has a single lumen groin catheter through which transvenous pacemaker is present being infused with 10 mics of levo fed as well as dopamine to keep map around 65-70 patient is on full ventilator support initially patient was place on assist control rate of 20 tidal volume of 505 of PEEP 100% oxygen now rate is being cut down to 14 PEEP is 5 FiO2 Is Lowered down to 50%, 11/26/2018 patient seen eval reexamined during the rounds clinically patient remains sedated with propofol drip currently patient is on 20 mics able to come down however hemodynamic status remains marginal, patient require 100% pacing as without heart rate drops down to less than 30, patient is also on levo fed drip 35 mics, and dopamine drip 10 mics, currently maintenance IV fluids 50 mL an hour being given, patient has been found to be hypokalemic potassium has been replaced, chest x-ray revealed a possible developing left lower lobe infiltrate cannot be excluded along with small effusion, on assist control rate of 12 breathing 12 tidal volume of 500, with PEEP of 5, FiO2 is down to 40%, chest x-ray reviewed laboratory data reviewed, critical care time spent 40 minutes 11/27/2018, patient seen eval examined during the rounds clinically patient is slightly improving terms of hemodynamics, the heart block has improvement, heart rate spontaneous is in 60s to 70s, blood pressure map remains over 60-70, patient however remains on dopamine which has been titrated down to 2 mics, the levo fed has been lowered down to 6 mics as well, patient is 15 mics of propofol she is arousable does open eyes, she remains on full vent setting with assist control 12 breathing 12 tidal volume is 500, PEEP is 5, oxygen is down to 40%, chest x-ray laboratory data reviewed, blood cultures appears to be contamination as coag-negative staph has been noted, ID service has been consulted, care plan discussed with the staff at length, cardiovascular services recommendations reviewed, critical care time spent 35 minutes 11/28/2018, patient seen eval examined during rounds clinically is now off of vasopressors dopamine levo fed has been discontinued, patient has been on assist control mode switched over to CPAP 5 pressure support of 10, patient is monitor and observe on the pressure support and CPAP, spontaneous tidal volume at 300 range respiratory rate in the low 20s, saturation remains 90%, patient is still somnolent but arousable, will plan to have extended weaning for one hour and then will check arterial blood gas which was reviewed as well patient tolerated the CPAP pressure trial and very well is being extubated, otherwise patient remains afebrile respiratory secretions stable labs x-rays and radiographic studies reviewed, patient appears to have component of anasarca 40 mg of Lasix IVs does being given will put patient on daily IV furosemide as well , critical care time spent 35 minutes 11/29/2018, patient seen eval reexamined during the rounds she has been successfully weaned and active extubated she is on supplemental oxygen very weak though, patient is still have a temperature transvenous pacemaker, which is set at 40, patient is back to her sinus rhythm, patient does have a history of sleep disorder breathing and sleep apnea as per discussion with the daughter she does not use her CPAP machine very regularly, I have educated them extensively at, patient remains on broad-spectrum antibiotics labs reviewed medications reviewed radiographic studies reviewed as well, chest x-ray revealed a small pleural effusion with right basal infiltrate cardiomegaly stable triple-lumen catheter 12/01/2018. Patient remains in the intensive care unit. Patient currently on 4 L. temporary pacemaker has been removed per cardiology services. Heart rate has remained stable. At this time patient denies any chest pain or shortness breath. Patient denies nausea vomiting or diarrhea. Patient denies any urinary burning or frequency on 12/02/2018 patient remains in the intensive care unit. Patient is currently sleeping with BiPAP in place. Patient's heart rate has remained within normal limits. At this time patient denies chest pain or shortness of breath. Patient denies nausea vomiting or diarrhea. Patient denies any urinary burning or frequency. Per nursing staff patient did have a bout of confusion throughout night which is not the first occurrence On 12/03/2018 patient does appear more alert than yesterday. Patient does have increased upper respiratory wheezing. Chest x-ray ordered per critical care team. At this time patient denies chest pain or shortness breath. Patient denies nausea vomiting or diarrhea. Patient denies any urinary burning or frequency. Objective - Vital Signs Vital signs: Vital Signs Temp 98.0 F 12/03/18 08:00 Pulse 86 12/03/18 11:13 Resp 17 12/03/18 10:00 BP 137/84 12/03/18 10:00 Pulse Ox 95 12/03/18 10:00 Intake & Output 12/02/18 12/03/18 12/03/18 18:59 06:59 18:59 Intake Total 290 240 610 Output Total 2024 1400 725 Balance -1735 -1160 -115 Weight 123.4 kg Intake: IV 240 240 260 Sodium Chloride 0.9% 1, 240 240 260 000 ml @ 20 mls/hr IV . Q24H [facility] Rx#:[id number] Intake, IV Titration 50 100 Amount Cefepime 2 gm In Sodium 50 100 Chloride 0.9% 50 ml @ 100 mls/hr IVPB Q12HR [facility] Rx #:[id number] Oral 50 Tube Feeding 200 Output: Urine 2024 1400 725 Other: Voiding Method Indwelling Catheter Indwelling Catheter Indwelling Catheter # Bowel Movements 1 ABP, PAP, CO, CI - Last Documented Arterial Blood Pressure 117/67 - Exam Head normocephalic Neck supple Lungs diminished bilaterally with expiratory wheezing Heart regular rate and rhythm S1-S2, no rub or gallop Abdomen is soft nontender nondistended positive bowel sounds no hepatosplenomegaly Extremities no edema - Labs CBC & Chem 7: 12/03/18 04:20 12/03/18 04:20 Labs: Abnormal Lab Results - Last 24 Hours (Table) 11/28/18 12/01/18 12/01/18 Range/Units 06:01 17:17 17:19 RBC (3.80-5.40) m/uL Hgb (11.4-16.0) gm/dL Hct (34.0-46.0) % Neutrophils # (1.3-7.7) k/uL Lymphocytes # (1.0-4.8) k/uL Sodium (137-145) mmol/L Chloride (98-107) mmol/L Carbon Dioxide (22-30) mmol/L BUN (7-17) mg/dL Glucose (74-99) mg/dL POC Glucose (mg/dL) 101 H 517 H 200 H (75-99) mg/dL Calcium (8.4-10.2) mg/dL Total Protein (6.3-8.2) g/dL Albumin (3.5-5.0) g/dL 12/01/18 12/02/18 12/02/18 Range/Units 17:20 11:59 16:53 RBC (3.80-5.40) m/uL Hgb (11.4-16.0) gm/dL Hct (34.0-46.0) % Neutrophils # (1.3-7.7) k/uL Lymphocytes # (1.0-4.8) k/uL Sodium (137-145) mmol/L Chloride (98-107) mmol/L Carbon Dioxide (22-30) mmol/L BUN (7-17) mg/dL Glucose (74-99) mg/dL POC Glucose (mg/dL) 182 H 175 H 172 H (75-99) mg/dL Calcium (8.4-10.2) mg/dL Total Protein (6.3-8.2) g/dL Albumin (3.5-5.0) g/dL 12/02/18 12/03/18 12/03/18 Range/Units 21:51 04:20 04:20 RBC 3.44 L (3.80-5.40) m/uL Hgb 9.5 L (11.4-16.0) gm/dL Hct 30.0 L (34.0-46.0) % Neutrophils # 8.6 H (1.3-7.7) k/uL Lymphocytes # 0.4 L (1.0-4.8) k/uL Sodium 136 L (137-145) mmol/L Chloride 95 L (98-107) mmol/L Carbon Dioxide 37 H (22-30) mmol/L BUN 33 H (7-17) mg/dL Glucose 124 H (74-99) mg/dL POC Glucose (mg/dL) 165 H (75-99) mg/dL Calcium 8.3 L (8.4-10.2) mg/dL Total Protein 5.4 L (6.3-8.2) g/dL Albumin 2.8 L (3.5-5.0) g/dL 12/03/18 Range/Units 07:01 RBC (3.80-5.40) m/uL Hgb (11.4-16.0) gm/dL Hct (34.0-46.0) % Neutrophils # (1.3-7.7) k/uL Lymphocytes # (1.0-4.8) k/uL Sodium (137-145) mmol/L Chloride (98-107) mmol/L Carbon Dioxide (22-30) mmol/L BUN (7-17) mg/dL Glucose (74-99) mg/dL POC Glucose (mg/dL) 176 H (75-99) mg/dL Calcium (8.4-10.2) mg/dL Total Protein (6.3-8.2) g/dL Albumin (3.5-5.0) g/dL Assessment and Plan Assessment: 1. Acute aspiration pneumonia, leading to acute hypoxic respiratory failure, requiring intubation and mechanical ventilation. Chest x-ray completed showing findings favoring decompensated congestive heart failure with trace right and small to moderate left pleural effusions and minimal pulmonary vascular congestion and commendation with cardiomegaly. Patient is currently on Lasix IV daily. Patient also on Solu-Medrol 60 mg every 6 hours. Per pulmonary services Lasix has been increased to 40 twice a day. Repeat chest x-ray has been ordered per critical care team 2. Acute sepsis secondary to pneumonia. Patient remains off pressors. Lactic acid 5.3. Repeat 3.0 Blood culture currently growing Staphylococcus epidermidis. Dr. Robins has been consulted for infectious disease. remains on Maxipime and vancomycin. 3. Severe complete third-degree high-grade AV block. Patient did have TVP in place. TVP has been pulled per cardiology services 4. Fluid overload and generalized anasarca. Maintained IV Lasix 5. Acute respiratory failure related to above. Patient has been extubated to [address] Sánchez has been following for intensive care and pulmonary services 6. Lactic acidosis secondary due to due to poor perfusion and cardiogenic shock 7. Hyponatremia. Improving to 134 8. Acute renal failure stage III. Creatinine 0.69 and bun 25 9. History of essential hypertension 10. History of osteoarthritis 11. History of anxiety and depression DVT prophylaxis heparin. GI prophylaxis pepcid I performed an examination of the patient and discussed their management with the Nurse Practitioner. I have reviewed the Nurse Practitioner's notes and agree with the documented findings and plan of care
[2018-12-03 11:25] LABS: Glucose,Whole Blood 249 mg/dL (75-99)
--- NOTE | 2018-12-03 11:57 | P.PN ---
Subjective Progress Note Date: 12/03/18 Principal diagnosis: Bilateral aspiration pneumonia, and diastolic congestive heart failure This is a 73-year-old female I'm seeing today on 12/01/2018, patient was admitted almost a week ago with complete heart block and aspiration pneumonia some component of diastolic congestive heart failure/fluid overload. Patient was followed all along by Dr. Diaz, and she was seen yesterday by Dr. Sánchez who was covering Dr. Diaz while the patient is in the ICU. Patient had aspiration pneumonia, sepsis, complete heart block, fluid overload, acute respiratory failure with hypoxemia, lactic acidosis, acute renal failure, shock liver, and she was eventually extubated the day before yesterday. Remains in the ICU, she is on nasal cannula, and she has BiPAP at bedside to be used during sleep time. Patient is feeling good, she has cough and wheezing, but she denies being short of breath. She is extremely pleasant. Again she is basically asymptomatic. Chest x-ray was reviewed and it showed congestive heart failure changes with trace of right and [id number] left pleural effusion with pulmonary vascular congestion again it is mostly consistent with diastolic congestive heart failure. Labs were reviewed, she had a relatively normal CBC hemoglobin is 9.5 left lites are normal bicarb is 35 BUN is 25 creatinine 0.69. All meds were reviewed remains on bronchodilators, antibiotics, and I went ahead and increased her Lasix to 40 mg IV push every 12 hours. Reevaluated today on 12/02/2018, patient remains in the ICU, she had some episodes of confusion last night, didn't require placement on BiPAP. However patient seems to be alert oriented 3 this morning, and she does not seem to be in any form of distress. Presently on BiPAP, she is on IPAP of 14 and EPAP of 6 , and her FiO2 is being titrated to keep O2 saturation above 90%. Her confusion seems to have resolved, but apparently she has been noted to have confusion every night. Labs were reviewed, she had a relatively normal electrolytes, normal renal profile, and normal CBC. Chest x-ray continues to show some evidence of congestive heart failure with trace and [id number] left pleural effusion and pulmonary congestion. Patient today denies any headache no blurred vision no dizziness, no cough no wheezing, no nausea no vomiting no abdominal pain. Patient was reevaluated in the ICU today on 12/03/2018, remains on nasal cannula, doing fairly well, she does appear a bit more alert compared to yesterday. Not confused, patient is breathing easier, and she is on nasal cannula. Chest x- ray which I ordered today showed mild congestive heart failure changes and interstitial edema, significantly improved over the last few days. Labs were all reviewed, she has a relatively normal electrolytes, however her bicarb is 37 BUN is 33 creatinine 0.84. WBC count is 9.7 hemoglobin is 9.5. Medications were all reviewed, remains on bronchodilators, antibiotics, diuretics, she is also on GI and DVT prophylaxis. Objective - Vital Signs Vital signs: Vital Signs Temp 98.0 F 12/03/18 08:00 Pulse 80 12/03/18 11:25 Resp 17 12/03/18 10:00 BP 137/84 12/03/18 10:00 Pulse Ox 95 12/03/18 10:00 Intake & Output 12/02/18 12/03/18 12/03/18 18:59 06:59 18:59 Intake Total 290 240 610 Output Total 2024 1400 725 Balance -1735 -1160 -115 Weight 123.4 kg Intake: IV 240 240 260 Sodium Chloride 0.9% 1, 240 240 260 000 ml @ 20 mls/hr IV . Q24H [facility] Rx#:[id number] Intake, IV Titration 50 100 Amount Cefepime 2 gm In Sodium 50 100 Chloride 0.9% 50 ml @ 100 mls/hr IVPB Q12HR [facility] Rx #:[id number] Oral 50 Tube Feeding 200 Output: Urine 2024 1400 725 Other: Voiding Method Indwelling Catheter Indwelling Catheter Indwelling Catheter # Bowel Movements 1 ABP, PAP, CO, CI - Last Documented Arterial Blood Pressure 117/67 - Exam Physical Exam: Revealed a 73-year-old female in no distress. On 3 L nasal cannula. Head: Atraumatic, normocephalic, HEENT:[Neck is supple.] [No neck masses.] [No thyromegaly.] [No JVD.] PERRLA, EOMI, no icterus. Chest: Diminished breath sounds at bases, no crackles or rhonchi or wheezes.] Cardiac Exam: [Normal S1 and S2, no S3 gallop, no murmur.] Abdomen: [Obese, Soft, nontender, no megaly, no rebound, no guarding, normal bowel sounds.] Extremities: [No clubbing, trace of bipedal edema, no cyanosis.] Neurological Exam: [No focal neurologic deficit.] Psychiatric: Normal mood, affect and mental status examination. Skin: No rashes. Normal turgor. - Labs CBC & Chem 7: 12/03/18 04:20 12/03/18 04:20 Labs: Abnormal Lab Results - Last 24 Hours (Table) 11/28/18 12/01/18 12/01/18 Range/Units 06:01 17:17 17:19 RBC (3.80-5.40) m/uL Hgb (11.4-16.0) gm/dL Hct (34.0-46.0) % Neutrophils # (1.3-7.7) k/uL Lymphocytes # (1.0-4.8) k/uL Sodium (137-145) mmol/L Chloride (98-107) mmol/L Carbon Dioxide (22-30) mmol/L BUN (7-17) mg/dL Glucose (74-99) mg/dL POC Glucose (mg/dL) 101 H 517 H 200 H (75-99) mg/dL Calcium (8.4-10.2) mg/dL Total Protein (6.3-8.2) g/dL Albumin (3.5-5.0) g/dL 12/01/18 12/02/18 12/02/18 Range/Units 17:20 11:59 16:53 RBC (3.80-5.40) m/uL Hgb (11.4-16.0) gm/dL Hct (34.0-46.0) % Neutrophils # (1.3-7.7) k/uL Lymphocytes # (1.0-4.8) k/uL Sodium (137-145) mmol/L Chloride (98-107) mmol/L Carbon Dioxide (22-30) mmol/L BUN (7-17) mg/dL Glucose (74-99) mg/dL POC Glucose (mg/dL) 182 H 175 H 172 H (75-99) mg/dL Calcium (8.4-10.2) mg/dL Total Protein (6.3-8.2) g/dL Albumin (3.5-5.0) g/dL 12/02/18 12/03/18 12/03/18 Range/Units 21:51 04:20 04:20 RBC 3.44 L (3.80-5.40) m/uL Hgb 9.5 L (11.4-16.0) gm/dL Hct 30.0 L (34.0-46.0) % Neutrophils # 8.6 H (1.3-7.7) k/uL Lymphocytes # 0.4 L (1.0-4.8) k/uL Sodium 136 L (137-145) mmol/L Chloride 95 L (98-107) mmol/L Carbon Dioxide 37 H (22-30) mmol/L BUN 33 H (7-17) mg/dL Glucose 124 H (74-99) mg/dL POC Glucose (mg/dL) 165 H (75-99) mg/dL Calcium 8.3 L (8.4-10.2) mg/dL Total Protein 5.4 L (6.3-8.2) g/dL Albumin 2.8 L (3.5-5.0) g/dL 12/03/18 12/03/18 Range/Units 07:01 11:24 RBC (3.80-5.40) m/uL Hgb (11.4-16.0) gm/dL Hct (34.0-46.0) % Neutrophils # (1.3-7.7) k/uL Lymphocytes # (1.0-4.8) k/uL Sodium (137-145) mmol/L Chloride (98-107) mmol/L Carbon Dioxide (22-30) mmol/L BUN (7-17) mg/dL Glucose (74-99) mg/dL POC Glucose (mg/dL) 176 H 249 H (75-99) mg/dL Calcium (8.4-10.2) mg/dL Total Protein (6.3-8.2) g/dL Albumin (3.5-5.0) g/dL Assessment and Plan Assessment: Impression: 1: Acute aspiration pneumonia, leading to acute hypoxic respiratory failure, requiring intubation and mechanical ventilation. Resolved, and the patient had demonstrated a significant improvement. 2 acute sepsis secondary to pneumonia,septic shock requiring pressors and fluid boluses at one point. 8 third-degree AV block requiring transvenous pacemaker/temporary. 3 fluid overload and generalized anasarca, acute diastolic congestive heart failure 4 acute on chronic renal failure stage III 5 shock liver 6 bacteremia/positive blood culture, however felt to be secondary to contamination 7 diastolic congestive heart failure hence more diuretics were added. 8 third-degree AV block requiring temporary transvenous pacemaker placement. Recommendation: My plan today is to continue all present meds including diuretics, antibiotics, bronchodilators, GI and DVT prophylaxis, we will arrange for the patient to have physical therapy, we'll arrange for transfer out of the ICU to a monitored bed on selective. We'll continue to follow on a regular basis, and adjust her medications accordingly. Overall I think the patient is improving, but not ready to be discharged home yet. She continues to have multiple complex medical problems as noted above. Will follow. Time with Patient: Less than 30
[2018-12-03] MEDS: FOLIC ACID 1 MG TAB PO SCH (12:53)
[2018-12-03 17:08] LABS: Glucose,Whole Blood 143 mg/dL (75-99)
[2018-12-03] MEDS: ALPRAZolam 0.25 MG TAB PO PRN (20:16)
[2018-12-03 20:55] LABS: Glucose,Whole Blood 215 mg/dL (75-99)
--- NOTE | 2018-12-03 22:45 | PN ---
PROGRESS NOTE DATE OF SERVICE: 12/03/2018 REASON FOR FOLLOWUP: Possible gram-negative pneumonia. INTERVAL HISTORY: The patient is afebrile. She seems to have a little bit more shortness of breath today. The patient denies having any chest pain. She did have some cough but did not bring up any sputum. No nausea or vomiting. No abdominal pain or diarrhea. PHYSICAL EXAMINATION: Blood pressure is 122/57 with a pulse of 73, temperature 98. General description is an elderly female up in the chair in no distress. RESPIRATORY SYSTEM: Unlabored breathing with bilateral expiratory wheeze. HEART: S1, S2. Regular rate and rhythm. ABDOMEN: Soft. No tenderness. LABS: Hemoglobin 9.5, white count 9.7 with a BUN of 33, creatinine 0.84. DIAGNOSTIC IMPRESSION AND PLAN: Patient with an episode of fever with concern for possible pneumonia with a question of gram-negative. Patient is currently covered with cefepime, to be continued for now while waiting for her condition to stabilize. Continue with supportive care. MMODL / IJN: [id number] /
[2018-12-04 04:13] LABS: Basophils % (A) 0 %; Eosinophils # (A) 0.1 k/uL (0-0.7); Eosinophils % (A) 1 %; HCT 31.2 % (34.0-46.0); HGB 9.9 gm/dL (11.4-16.0); Lymphocytes # (A) 0.4 k/uL (1.0-4.8); Lymphocytes % (A) 3 %; MCH 27.7 pg (25.0-35.0); MCHC 31.8 g/dL (31.0-37.0); MCV 86.9 fL (80.0-100.0); Mean Platelet Volume 6.6; Monocytes # (A) 0.7 k/uL (0-1.0); Monocytes % (A) 5 %; Neutrophils # (A) 11.9 k/uL (1.3-7.7); Neutrophils % (A) 90 %; Platelet Count 296 k/uL (150-450); RBC 3.59 m/uL (3.80-5.40); RDW 14.5 % (11.5-15.5); WBC 13.2 k/uL (3.8-10.6)
[2018-12-04] MEDS: methylPREDNISolone SOD SUCCI 125 MG/2 ML VIAL IV SCH (05:52)
[2018-12-04 06:57] LABS: Glucose,Whole Blood 182 mg/dL (75-99)
[2018-12-04] MEDS: INSULIN ASPART 100 UNIT/ML 1 ML 10 ML VIAL SQ SCH ×6 (07:08→20:49)
[2018-12-04] MEDS: ALBUTEROL NEBULIZED 2.5 MG/3 ML INHALATION SCH ×4 (07:17→20:11)
[2018-12-04] MEDS: BUDESONIDE 1 MG/2 ML NEBU INHALATION SCH ×2 (07:17→20:11)
[2018-12-04] MEDS: CEFEPIME 2 GM in SODIUM CHLORIDE 0.9% 50 ML IVPB SCH ×2 (08:29→20:46)
[2018-12-04] MEDS: FAMOTIDINE 20 MG/2 ML VIAL IV SCH ×2 (08:29→20:52)
[2018-12-04] MEDS: HEPARIN SODIUM,PORCINE 5,000 UNIT/ML 1 ML VIAL SQ SCH ×2 (08:29→20:55)
[2018-12-04] MEDS: FUROSEMIDE 10 MG/ML 4 ML VIAL IV SCH ×2 (08:29→20:57)
[2018-12-04] MEDS: DULoxetine HCL 30 MG CAPSULE.DR PO SCH (08:30)
[2018-12-04] MEDS: levETIRAcetam 500 MG TAB PO SCH ×2 (08:30→20:48)
[2018-12-04] MEDS: MONTELUKAST 10 MG TAB PO SCH (08:30)
[2018-12-04] MEDS: buPROPion SR 100 MG TABLET.ER PO SCH (08:30)
--- NOTE | 2018-12-04 10:42 | P.PN ---
Subjective Progress Note Date: 12/04/18 73-year-old female who was seen evaluated examined on medical floor, this patient admitted into the hospital earlier this morning with problems associated with nauseous feeling and nasopharyngeal swab for influenza A and B were both negative, her symptoms started a day before she has not been taking able to take anything by mouth she is not taking her home medication as well, patient has been having looser stool as well overall symptoms appeared to be like gastroenteritis however no bloody diarrhea has been noted, patient denies any emesis denies any abdominal pain and on specific questioning denies any chest pain or radiation of pain, she does have a history of COPD and chronic persistent asthma, patient also has a history of hypertension hypertensive cardiovascular disease and advanced steroid-dependent rheumatoid arthritis, she has not been formally evaluated for sleep disorder breathing and sleep apnea, on medical floor patient was found to be bradycardic which was a significant change compared to her admit vitals, patient was however hemodynamically stable but due to significant bradycardia transferred to the selective care/ICU if no bed is available consult with cardiology has been also initiated, they felt that patient to be monitored and observed dopamine/dopamine and check agents were not initiated as patient was hemodynamically stable and bradycardia thought to be related to exaggerated vagal response, review of the data also revealed that patient is hyponatremic, initial EKG revealed sinus tachycardia with left bundle branch block and currently developed high degree AV block, patient failed to capture external pacemaker eventually due to severe restlessness and significant bradycardia was intubated and cardiovascular services took her to the Lab at transvenous temporary pacemaker has been inserted through the groin, and A-line has been inserted by the anesthesia, patient only has a single lumen groin catheter through which transvenous pacemaker is present being infused with 10 mics of levo fed as well as dopamine to keep map around 65-70 patient is on full ventilator support initially patient was place on assist control rate of 20 tidal volume of 505 of PEEP 100% oxygen now rate is being cut down to 14 PEEP is 5 FiO2 Is Lowered down to 50%, 11/26/2018 patient seen eval reexamined during the rounds clinically patient remains sedated with propofol drip currently patient is on 20 mics able to come down however hemodynamic status remains marginal, patient require 100% pacing as without heart rate drops down to less than 30, patient is also on levo fed drip 35 mics, and dopamine drip 10 mics, currently maintenance IV fluids 50 mL an hour being given, patient has been found to be hypokalemic potassium has been replaced, chest x-ray revealed a possible developing left lower lobe infiltrate cannot be excluded along with small effusion, on assist control rate of 12 breathing 12 tidal volume of 500, with PEEP of 5, FiO2 is down to 40%, chest x-ray reviewed laboratory data reviewed, critical care time spent 40 minutes 11/27/2018, patient seen eval examined during the rounds clinically patient is slightly improving terms of hemodynamics, the heart block has improvement, heart rate spontaneous is in 60s to 70s, blood pressure map remains over 60-70, patient however remains on dopamine which has been titrated down to 2 mics, the levo fed has been lowered down to 6 mics as well, patient is 15 mics of propofol she is arousable does open eyes, she remains on full vent setting with assist control 12 breathing 12 tidal volume is 500, PEEP is 5, oxygen is down to 40%, chest x-ray laboratory data reviewed, blood cultures appears to be contamination as coag-negative staph has been noted, ID service has been consulted, care plan discussed with the staff at length, cardiovascular services recommendations reviewed, critical care time spent 35 minutes 11/28/2018, patient seen eval examined during rounds clinically is now off of vasopressors dopamine levo fed has been discontinued, patient has been on assist control mode switched over to CPAP 5 pressure support of 10, patient is monitor and observe on the pressure support and CPAP, spontaneous tidal volume at 300 range respiratory rate in the low 20s, saturation remains 90%, patient is still somnolent but arousable, will plan to have extended weaning for one hour and then will check arterial blood gas which was reviewed as well patient tolerated the CPAP pressure trial and very well is being extubated, otherwise patient remains afebrile respiratory secretions stable labs x-rays and radiographic studies reviewed, patient appears to have component of anasarca 40 mg of Lasix IVs does being given will put patient on daily IV furosemide as well , critical care time spent 35 minutes 11/29/2018, patient seen eval reexamined during the rounds she has been successfully weaned and active extubated she is on supplemental oxygen very weak though, patient is still have a temperature transvenous pacemaker, which is set at 40, patient is back to her sinus rhythm, patient does have a history of sleep disorder breathing and sleep apnea as per discussion with the daughter she does not use her CPAP machine very regularly, I have educated them extensively at, patient remains on broad-spectrum antibiotics labs reviewed medications reviewed radiographic studies reviewed as well, chest x-ray revealed a small pleural effusion with right basal infiltrate cardiomegaly stable triple-lumen catheter 12/01/2018. Patient remains in the intensive care unit. Patient currently on 4 L. temporary pacemaker has been removed per cardiology services. Heart rate has remained stable. At this time patient denies any chest pain or shortness breath. Patient denies nausea vomiting or diarrhea. Patient denies any urinary burning or frequency on 12/02/2018 patient remains in the intensive care unit. Patient is currently sleeping with BiPAP in place. Patient's heart rate has remained within normal limits. At this time patient denies chest pain or shortness of breath. Patient denies nausea vomiting or diarrhea. Patient denies any urinary burning or frequency. Per nursing staff patient did have a bout of confusion throughout night which is not the first occurrence On 12/03/2018 patient does appear more alert than yesterday. Patient does have increased upper respiratory wheezing. Chest x-ray ordered per critical care team. At this time patient denies chest pain or shortness breath. Patient denies nausea vomiting or diarrhea. Patient denies any urinary burning or frequency. On 12/04/2018 patient is awake and alert. Patient's expiratory wheezing does sound improved. At this time patient denies chest pain or shortness of breath. Patient denies nausea vomiting or diarrhea. Patient denies any urinary burning or frequency Objective - Vital Signs Vital signs: Vital Signs Temp 97.9 F 12/04/18 08:00 Pulse 79 12/04/18 09:00 Resp 26 H 12/04/18 09:00 BP 126/68 12/04/18 09:00 Pulse Ox 95 12/04/18 09:00 Intake & Output 12/03/18 12/04/18 12/04/18 18:59 06:59 18:59 Intake Total 870 240 330 Output Total 1575 1460 320 Balance -705 -1220 10 Weight 122.7 kg 122.7 kg Intake: IV 320 240 80 Sodium Chloride 0.9% 1, 320 240 80 000 ml @ 20 mls/hr IV . Q24H [facility] Rx#:[id number] Intake, IV Titration 100 50 Amount Cefepime 2 gm In Sodium 100 50 Chloride 0.9% 50 ml @ 100 mls/hr IVPB Q12HR [facility] Rx #:[id number] Oral 250 200 Tube Feeding 200 Output: Urine 1575 1460 320 Other: Voiding Method Indwelling Catheter Indwelling Catheter Indwelling Catheter # Bowel Movements 1 ABP, PAP, CO, CI - Last Documented Arterial Blood Pressure 117/67 - Exam Head normocephalic Neck supple Lungs diminished bilaterally with expiratory wheezing Heart regular rate and rhythm S1-S2, no rub or gallop Abdomen is soft nontender nondistended positive bowel sounds no hepatosplenomegaly Extremities no edema - Labs CBC & Chem 7: 12/04/18 04:05 12/03/18 04:20 Labs: Abnormal Lab Results - Last 24 Hours (Table) 12/03/18 12/03/18 12/03/18 Range/Units 04:20 11:24 17:06 WBC (3.8-10.6) k/uL RBC (3.80-5.40) m/uL Hgb (11.4-16.0) gm/dL Hct (34.0-46.0) % Neutrophils # (1.3-7.7) k/uL Lymphocytes # (1.0-4.8) k/uL Sodium 136 L (137-145) mmol/L Chloride 95 L (98-107) mmol/L Carbon Dioxide 37 H (22-30) mmol/L BUN 33 H (7-17) mg/dL Glucose 124 H (74-99) mg/dL POC Glucose (mg/dL) 249 H 143 H (75-99) mg/dL Calcium 8.3 L (8.4-10.2) mg/dL Total Protein 5.4 L (6.3-8.2) g/dL Albumin 2.8 L (3.5-5.0) g/dL 12/03/18 12/04/18 12/04/18 Range/Units 20:54 04:05 06:57 WBC 13.2 H (3.8-10.6) k/uL RBC 3.59 L (3.80-5.40) m/uL Hgb 9.9 L (11.4-16.0) gm/dL Hct 31.2 L (34.0-46.0) % Neutrophils # 11.9 H (1.3-7.7) k/uL Lymphocytes # 0.4 L (1.0-4.8) k/uL Sodium (137-145) mmol/L Chloride (98-107) mmol/L Carbon Dioxide (22-30) mmol/L BUN (7-17) mg/dL Glucose (74-99) mg/dL POC Glucose (mg/dL) 215 H 182 H (75-99) mg/dL Calcium (8.4-10.2) mg/dL Total Protein (6.3-8.2) g/dL Albumin (3.5-5.0) g/dL Assessment and Plan Assessment: 1. Acute aspiration pneumonia, leading to acute hypoxic respiratory failure, requiring intubation and mechanical ventilation. . Patient also on Solu- Medrol 60 mg every 6 hours. Per pulmonary services Lasix has been increased to 40 twice a day. Repeat chest x-ray completed showing continued changes of mild- to-moderate CHF with pulmonary vascular congestion. Small to moderate pleural effusions with adjacent atelectasis and consolidation also remains 2. Acute sepsis secondary to pneumonia. Patient remains off pressors. Lactic acid 5.3. Repeat 3.0 Blood culture currently growing Staphylococcus epidermidis. Dr. Robins has been consulted for infectious disease. remains on Maxipime and vancomycin. 3. Severe complete third-degree high-grade AV block. Patient did have TVP in place. TVP has been pulled per cardiology services 4. Fluid overload and generalized anasarca. Maintained IV Lasix 5. Acute respiratory failure related to above. Patient has been extubated to [address] Sánchez has been following for intensive care and pulmonary services 6. Lactic acidosis secondary due to due to poor perfusion and cardiogenic shock 7. Hyponatremia. Improving to 134 8. Acute renal failure stage III. Creatinine 0.69 and bun 25 9. History of essential hypertension 10. History of osteoarthritis 11. History of anxiety and depression 12. Hyperglycemia due to steroids. Patient placed on sliding scale steroid coverage. Hemoglobin A1c 6.4 from 11/26/2018 Patient will likely need ECF placement upon discharge social work and physical therapy consulted DVT prophylaxis heparin. GI prophylaxis pepcid I performed an examination of the patient and discussed their management with the Nurse Practitioner. I have reviewed the Nurse Practitioner's notes and agree with the documented findings and plan of care
--- NOTE | 2018-12-04 11:06 | P.PN ---
Subjective Progress Note Date: 12/04/18 Principal diagnosis: Bilateral aspiration pneumonia, and diastolic congestive heart failure This is a 73-year-old female I'm seeing today on 12/01/2018, patient was admitted almost a week ago with complete heart block and aspiration pneumonia some component of diastolic congestive heart failure/fluid overload. Patient was followed all along by Dr. Diaz, and she was seen yesterday by Dr. Sánchez who was covering Dr. Diaz while the patient is in the ICU. Patient had aspiration pneumonia, sepsis, complete heart block, fluid overload, acute respiratory failure with hypoxemia, lactic acidosis, acute renal failure, shock liver, and she was eventually extubated the day before yesterday. Remains in the ICU, she is on nasal cannula, and she has BiPAP at bedside to be used during sleep time. Patient is feeling good, she has cough and wheezing, but she denies being short of breath. She is extremely pleasant. Again she is basically asymptomatic. Chest x-ray was reviewed and it showed congestive heart failure changes with trace of right and [id number] left pleural effusion with pulmonary vascular congestion again it is mostly consistent with diastolic congestive heart failure. Labs were reviewed, she had a relatively normal CBC hemoglobin is 9.5 left lites are normal bicarb is 35 BUN is 25 creatinine 0.69. All meds were reviewed remains on bronchodilators, antibiotics, and I went ahead and increased her Lasix to 40 mg IV push every 12 hours. Reevaluated today on 12/02/2018, patient remains in the ICU, she had some episodes of confusion last night, didn't require placement on BiPAP. However patient seems to be alert oriented 3 this morning, and she does not seem to be in any form of distress. Presently on BiPAP, she is on IPAP of 14 and EPAP of 6 , and her FiO2 is being titrated to keep O2 saturation above 90%. Her confusion seems to have resolved, but apparently she has been noted to have confusion every night. Labs were reviewed, she had a relatively normal electrolytes, normal renal profile, and normal CBC. Chest x-ray continues to show some evidence of congestive heart failure with trace and [id number] left pleural effusion and pulmonary congestion. Patient today denies any headache no blurred vision no dizziness, no cough no wheezing, no nausea no vomiting no abdominal pain. Patient was reevaluated in the ICU today on 12/03/2018, remains on nasal cannula, doing fairly well, she does appear a bit more alert compared to yesterday. Not confused, patient is breathing easier, and she is on nasal cannula. Chest x- ray which I ordered today showed mild congestive heart failure changes and interstitial edema, significantly improved over the last few days. Labs were all reviewed, she has a relatively normal electrolytes, however her bicarb is 37 BUN is 33 creatinine 0.84. WBC count is 9.7 hemoglobin is 9.5. Medications were all reviewed, remains on bronchodilators, antibiotics, diuretics, she is also on GI and DVT prophylaxis. Patient was reevaluated in the ICU today on 12/04/2018, sitting in bed, comfortable, in no distress, denies any shortness of breath or cough or wheezing , denies any chest pain, however she is complaining of vague abdominal discomfort. Her abdomen however is soft. Chest x-ray was not done today, but the chest x-ray from yesterday showed mild congestive heart failure and pulmonary vascular congestion. [id number]-rgsrnywd pleural effusions. With adjacent atelectasis. All labs from today including CBC and basic metabolic profile were reviewed, seem to be relatively normal. All meds she is presently on were reviewed. She remains on Lasix at 40 mg IV push every 12 hours. She remains on methylprednisolone which I will cut down further, and she remains on antibiotics./Cefepime. Objective - Vital Signs Vital signs: Vital Signs Temp 97.9 F 12/04/18 08:00 Pulse 79 12/04/18 09:00 Resp 26 H 12/04/18 09:00 BP 126/68 12/04/18 09:00 Pulse Ox 95 12/04/18 09:00 Intake & Output 12/03/18 12/04/18 12/04/18 18:59 06:59 18:59 Intake Total 870 240 330 Output Total 1575 1460 320 Balance -705 -1220 10 Weight 122.7 kg 122.7 kg Intake: IV 320 240 80 Sodium Chloride 0.9% 1, 320 240 80 000 ml @ 20 mls/hr IV . Q24H [facility] Rx#:[id number] Intake, IV Titration 100 50 Amount Cefepime 2 gm In Sodium 100 50 Chloride 0.9% 50 ml @ 100 mls/hr IVPB Q12HR [facility] Rx #:[id number] Oral 250 200 Tube Feeding 200 Output: Urine 1575 1460 320 Other: Voiding Method Indwelling Catheter Indwelling Catheter Indwelling Catheter # Bowel Movements 1 ABP, PAP, CO, CI - Last Documented Arterial Blood Pressure 117/67 - Exam Physical Exam: Revealed a 73-year-old female in no distress. On 2 L nasal cannula. Head: Atraumatic, normocephalic, HEENT:[Neck is supple.] [No neck masses.] [No thyromegaly.] [No JVD.] PERRLA, EOMI, no icterus. Chest: Diminished breath sounds at bases, minimal wheezing on forced expiratory maneuver was noted today..] Cardiac Exam: [Normal S1 and S2, no S3 gallop, no murmur.] Abdomen: [Obese, Soft, nontender, no megaly, no rebound, no guarding, normal bowel sounds.] Extremities: [No clubbing, trace of bipedal edema, no cyanosis.] Neurological Exam: [No focal neurologic deficit.] Psychiatric: Normal mood, affect and mental status examination. Skin: No rashes. Normal turgor. - Labs CBC & Chem 7: 12/04/18 04:05 12/03/18 04:20 Labs: Abnormal Lab Results - Last 24 Hours (Table) 12/03/18 12/03/18 12/03/18 Range/Units 04:20 11:24 17:06 WBC (3.8-10.6) k/uL RBC (3.80-5.40) m/uL Hgb (11.4-16.0) gm/dL Hct (34.0-46.0) % Neutrophils # (1.3-7.7) k/uL Lymphocytes # (1.0-4.8) k/uL Sodium 136 L (137-145) mmol/L Chloride 95 L (98-107) mmol/L Carbon Dioxide 37 H (22-30) mmol/L BUN 33 H (7-17) mg/dL Glucose 124 H (74-99) mg/dL POC Glucose (mg/dL) 249 H 143 H (75-99) mg/dL Calcium 8.3 L (8.4-10.2) mg/dL Total Protein 5.4 L (6.3-8.2) g/dL Albumin 2.8 L (3.5-5.0) g/dL 12/03/18 12/04/18 12/04/18 Range/Units 20:54 04:05 06:57 WBC 13.2 H (3.8-10.6) k/uL RBC 3.59 L (3.80-5.40) m/uL Hgb 9.9 L (11.4-16.0) gm/dL Hct 31.2 L (34.0-46.0) % Neutrophils # 11.9 H (1.3-7.7) k/uL Lymphocytes # 0.4 L (1.0-4.8) k/uL Sodium (137-145) mmol/L Chloride (98-107) mmol/L Carbon Dioxide (22-30) mmol/L BUN (7-17) mg/dL Glucose (74-99) mg/dL POC Glucose (mg/dL) 215 H 182 H (75-99) mg/dL Calcium (8.4-10.2) mg/dL Total Protein (6.3-8.2) g/dL Albumin (3.5-5.0) g/dL Assessment and Plan Assessment: Impression: 1: Acute aspiration pneumonia, leading to acute hypoxic respiratory failure, requiring intubation and mechanical ventilation. Resolved, and the patient had demonstrated a significant improvement. 2 acute sepsis secondary to pneumonia,septic shock requiring pressors and fluid boluses at one point. 8 third-degree AV block requiring transvenous pacemaker/temporary. 3 fluid overload and generalized anasarca, acute diastolic congestive heart failure 4 acute on chronic renal failure stage III 5 shock liver, improving 6 bacteremia/positive blood culture, however felt to be secondary to contamination 7 diastolic congestive heart failure hence more diuretics were added. 8 third-degree AV block requiring temporary transvenous pacemaker placement. Recommendation: Continue antibiotics, continue diuretics, cut down the methylprednisolone to 40 mg IV push every 8 hours, continue to monitor electrolytes and renal profile, consider transferring the patient out of the ICU to a monitor bed on selective. Patient is not quite ready for any discharge planning at this point, continues to have significant complex medical problems as noted above. Will follow. Time with Patient: Less than 30
[2018-12-04] MEDS: FOLIC ACID 1 MG TAB PO SCH (11:27)
[2018-12-04 11:30] LABS: Glucose,Whole Blood 180 mg/dL (75-99)
[2018-12-04] MEDS: SODIUM CHLORIDE 0.9% 1,000 ML IV SCH (11:34)
--- NOTE | 2018-12-04 16:43 | P.PN ---
Progress Note - Text Seen by Dr. Mcnamara initially. TVP placed for intermittent AV block which is now resolved No more episodes of AV block for over a week now. Patient with underlying left bundle branch block When necessary follow-up In case of recurrence of her last recorded [place] to proceed with permanent pacemaker implantation once her pulmonary status improved significantly
[2018-12-04 16:54] LABS: Glucose,Whole Blood 176 mg/dL (75-99)
[2018-12-04] MEDS: methylPREDNISolone SOD SUCCI 40 MG/ML 1 ML VIAL IV SCH ×2 (17:42→23:33)
[2018-12-04] MEDS: SENNOSIDES 8.6 MG TAB PO PRN (18:00)
[2018-12-04] MEDS: ACETAMINOPHEN TAB 500 MG TAB PO PRN (18:20)
[2018-12-04 20:49] LABS: Glucose,Whole Blood 60 mg/dL (75-99)
[2018-12-04] MEDS: ALPRAZolam 0.25 MG TAB PO PRN (21:06)
[2018-12-04 21:12] LABS: Glucose,Whole Blood 73 mg/dL (75-99)
--- NOTE | 2018-12-04 23:04 | PN ---
PROGRESS NOTE DATE OF SERVICE: 12/04/2018 REASON FOR FOLLOWUP: Possible gram-negative pneumonia. INTERVAL HISTORY: The patient is afebrile. She is breathing comfortably; however, the patient did have a congested cough, not bringing up any sputum. No nausea, no vomiting. She is complaining of some epigastric and lower abdominal pain; also complaining of constipation with no bowel movement. Nausea but no vomiting. PHYSICAL EXAMINATION: Blood pressure 143/76, pulse of 90, temperature 98.4. She is 95% on 3 L nasal cannula. General description is an elderly female up in the chair in no distress. RESPIRATORY SYSTEM: Unlabored breathing with decreased intensity of breath sounds. No wheeze. HEART: S1, S2. Regular rate and rhythm. ABDOMEN: Soft. No tenderness. LABS: Hemoglobin 9.9, white count 13.2, BUN of 33, creatinine 0.84. DIAGNOSTIC IMPRESSION AND PLAN: Patient with a fever with bilateral basilar infiltrate, concern for pneumonia. The patient's fever has resolved. Sputum has been negative for any resistant pathogen. Currently on cefepime because of her multiple antibiotic allergies. To continue for now to finish her course of therapy. Continue supportive care. MMODL / IJN: [id number] /
[2018-12-04 23:24] LABS: Glucose,Whole Blood 150 mg/dL (75-99)
[2018-12-05] MEDS: ACETAMINOPHEN TAB 500 MG TAB PO PRN ×2 (05:00→20:02)
[2018-12-05 05:16] LABS: Albumin 2.9 g/dL (3.5-5.0); Calcium 8.3 mg/dL (8.4-10.2); Potassium 4.1 mmol/L (3.5-5.1); Total Bilirubin 0.5 mg/dL (0.2-1.3); Total Protein 5.6 g/dL (6.3-8.2)
[2018-12-05 05:26] LABS: Basophils % (A) 0 %; Eosinophils % (A) 0 %; HGB 10.4 gm/dL (11.4-16.0); Lymphocytes # (A) 0.4 k/uL (1.0-4.8); Lymphocytes % (A) 2 %; MCH 27.7 pg (25.0-35.0); MCHC 31.5 g/dL (31.0-37.0); MCV 87.9 fL (80.0-100.0); Mean Platelet Volume 6.5; Monocytes # (A) 0.7 k/uL (0-1.0); Monocytes % (A) 4 %; Neutrophils % (A) 93 %; Platelet Count 364 k/uL (150-450); RBC 3.76 m/uL (3.80-5.40); RDW 14.4 % (11.5-15.5); WBC 20.4 k/uL (3.8-10.6)
[2018-12-05 06:58] LABS: Glucose,Whole Blood 193 mg/dL (75-99)
[2018-12-05] MEDS: ALBUTEROL NEBULIZED 2.5 MG/3 ML INHALATION SCH ×5 (07:48→23:12)
[2018-12-05] MEDS: BUDESONIDE 1 MG/2 ML NEBU INHALATION SCH ×2 (07:48→20:07)
[2018-12-05] MEDS: INSULIN ASPART 100 UNIT/ML 1 ML 10 ML VIAL SQ SCH ×7 (07:53→20:33)
[2018-12-05] MEDS: FUROSEMIDE 10 MG/ML 4 ML VIAL IV SCH ×2 (08:46→20:03)
[2018-12-05] MEDS: methylPREDNISolone SOD SUCCI 40 MG/ML 1 ML VIAL IV SCH ×3 (08:46→23:21)
[2018-12-05] MEDS: HEPARIN SODIUM,PORCINE 5,000 UNIT/ML 1 ML VIAL SQ SCH ×2 (08:46→20:10)
[2018-12-05] MEDS: buPROPion SR 100 MG TABLET.ER PO SCH (08:46)
[2018-12-05] MEDS: ALPRAZolam 0.25 MG TAB PO PRN ×2 (08:46→21:54)
[2018-12-05] MEDS: MONTELUKAST 10 MG TAB PO SCH (08:47)
[2018-12-05] MEDS: DULoxetine HCL 30 MG CAPSULE.DR PO SCH (08:47)
[2018-12-05] MEDS: levETIRAcetam 500 MG TAB PO SCH ×2 (08:47→20:01)
[2018-12-05] MEDS: CEFEPIME 2 GM in SODIUM CHLORIDE 0.9% 50 ML IVPB SCH ×2 (08:47→20:12)
[2018-12-05] MEDS: FAMOTIDINE 20 MG/2 ML VIAL IV SCH (08:48)
[2018-12-05] MEDS: SODIUM CHLORIDE 0.9% 1,000 ML IV SCH (09:21)
--- NOTE | 2018-12-05 09:44 | P.PN ---
Subjective Progress Note Date: 12/05/18 73-year-old female who was seen evaluated examined on medical floor, this patient admitted into the hospital earlier this morning with problems associated with nauseous feeling and nasopharyngeal swab for influenza A and B were both negative, her symptoms started a day before she has not been taking able to take anything by mouth she is not taking her home medication as well, patient has been having looser stool as well overall symptoms appeared to be like gastroenteritis however no bloody diarrhea has been noted, patient denies any emesis denies any abdominal pain and on specific questioning denies any chest pain or radiation of pain, she does have a history of COPD and chronic persistent asthma, patient also has a history of hypertension hypertensive cardiovascular disease and advanced steroid-dependent rheumatoid arthritis, she has not been formally evaluated for sleep disorder breathing and sleep apnea, on medical floor patient was found to be bradycardic which was a significant change compared to her admit vitals, patient was however hemodynamically stable but due to significant bradycardia transferred to the selective care/ICU if no bed is available consult with cardiology has been also initiated, they felt that patient to be monitored and observed dopamine/dopamine and check agents were not initiated as patient was hemodynamically stable and bradycardia thought to be related to exaggerated vagal response, review of the data also revealed that patient is hyponatremic, initial EKG revealed sinus tachycardia with left bundle branch block and currently developed high degree AV block, patient failed to capture external pacemaker eventually due to severe restlessness and significant bradycardia was intubated and cardiovascular services took her to the Lab at transvenous temporary pacemaker has been inserted through the groin, and A-line has been inserted by the anesthesia, patient only has a single lumen groin catheter through which transvenous pacemaker is present being infused with 10 mics of levo fed as well as dopamine to keep map around 65-70 patient is on full ventilator support initially patient was place on assist control rate of 20 tidal volume of 505 of PEEP 100% oxygen now rate is being cut down to 14 PEEP is 5 FiO2 Is Lowered down to 50%, 11/26/2018 patient seen eval reexamined during the rounds clinically patient remains sedated with propofol drip currently patient is on 20 mics able to come down however hemodynamic status remains marginal, patient require 100% pacing as without heart rate drops down to less than 30, patient is also on levo fed drip 35 mics, and dopamine drip 10 mics, currently maintenance IV fluids 50 mL an hour being given, patient has been found to be hypokalemic potassium has been replaced, chest x-ray revealed a possible developing left lower lobe infiltrate cannot be excluded along with small effusion, on assist control rate of 12 breathing 12 tidal volume of 500, with PEEP of 5, FiO2 is down to 40%, chest x-ray reviewed laboratory data reviewed, critical care time spent 40 minutes 11/27/2018, patient seen eval examined during the rounds clinically patient is slightly improving terms of hemodynamics, the heart block has improvement, heart rate spontaneous is in 60s to 70s, blood pressure map remains over 60-70, patient however remains on dopamine which has been titrated down to 2 mics, the levo fed has been lowered down to 6 mics as well, patient is 15 mics of propofol she is arousable does open eyes, she remains on full vent setting with assist control 12 breathing 12 tidal volume is 500, PEEP is 5, oxygen is down to 40%, chest x-ray laboratory data reviewed, blood cultures appears to be contamination as coag-negative staph has been noted, ID service has been consulted, care plan discussed with the staff at length, cardiovascular services recommendations reviewed, critical care time spent 35 minutes 11/28/2018, patient seen eval examined during rounds clinically is now off of vasopressors dopamine levo fed has been discontinued, patient has been on assist control mode switched over to CPAP 5 pressure support of 10, patient is monitor and observe on the pressure support and CPAP, spontaneous tidal volume at 300 range respiratory rate in the low 20s, saturation remains 90%, patient is still somnolent but arousable, will plan to have extended weaning for one hour and then will check arterial blood gas which was reviewed as well patient tolerated the CPAP pressure trial and very well is being extubated, otherwise patient remains afebrile respiratory secretions stable labs x-rays and radiographic studies reviewed, patient appears to have component of anasarca 40 mg of Lasix IVs does being given will put patient on daily IV furosemide as well , critical care time spent 35 minutes 11/29/2018, patient seen eval reexamined during the rounds she has been successfully weaned and active extubated she is on supplemental oxygen very weak though, patient is still have a temperature transvenous pacemaker, which is set at 40, patient is back to her sinus rhythm, patient does have a history of sleep disorder breathing and sleep apnea as per discussion with the daughter she does not use her CPAP machine very regularly, I have educated them extensively at, patient remains on broad-spectrum antibiotics labs reviewed medications reviewed radiographic studies reviewed as well, chest x-ray revealed a small pleural effusion with right basal infiltrate cardiomegaly stable triple-lumen catheter 12/01/2018. Patient remains in the intensive care unit. Patient currently on 4 L. temporary pacemaker has been removed per cardiology services. Heart rate has remained stable. At this time patient denies any chest pain or shortness breath. Patient denies nausea vomiting or diarrhea. Patient denies any urinary burning or frequency on 12/02/2018 patient remains in the intensive care unit. Patient is currently sleeping with BiPAP in place. Patient's heart rate has remained within normal limits. At this time patient denies chest pain or shortness of breath. Patient denies nausea vomiting or diarrhea. Patient denies any urinary burning or frequency. Per nursing staff patient did have a bout of confusion throughout night which is not the first occurrence On 12/03/2018 patient does appear more alert than yesterday. Patient does have increased upper respiratory wheezing. Chest x-ray ordered per critical care team. At this time patient denies chest pain or shortness breath. Patient denies nausea vomiting or diarrhea. Patient denies any urinary burning or frequency. On 12/04/2018 patient is awake and alert. Patient's expiratory wheezing does sound improved. At this time patient denies chest pain or shortness of breath. Patient denies nausea vomiting or diarrhea. Patient denies any urinary burning or frequency On 12/05/2018 patient is alert and awake eating breakfast in bed. Per nursing staff patient is a bit more confused today. CO2 is up to 40. Per nursing staff patient did not consistently wear BiPAP throughout night. At this time patient denies chest pain or shortness of breath. Patient denies nausea vomiting or diarrhea. Patient denies any urinary burning or frequency Objective - Vital Signs Vital signs: Vital Signs Temp 98.0 F 12/05/18 04:00 Pulse 85 12/05/18 08:04 Resp 22 12/05/18 04:00 BP 146/85 12/05/18 04:00 Pulse Ox 96 12/05/18 04:00 Intake & Output 12/04/18 12/05/18 12/05/18 18:59 06:59 18:59 Intake Total 650 740 Output Total 970 900 Balance -320 -160 Weight 122.7 kg 124.9 kg Intake: IV 240 240 Sodium Chloride 0.9% 1, 240 240 000 ml @ 20 mls/hr IV . Q24H [facility] Rx#:[id number] Intake, IV Titration 50 Amount Cefepime 2 gm In Sodium 50 Chloride 0.9% 50 ml @ 100 mls/hr IVPB Q12HR [facility] Rx #:[id number] Oral 360 500 Output: Urine 970 900 Other: Voiding Method Indwelling Catheter Indwelling Catheter ABP, PAP, CO, CI - Last Documented Arterial Blood Pressure 117/67 - Exam Head normocephalic Neck supple Lungs diminished bilaterally with expiratory wheezing Heart regular rate and rhythm S1-S2, no rub or gallop Abdomen is soft nontender nondistended positive bowel sounds no hepatosplenomegaly Extremities no edema - Labs CBC & Chem 7: 12/05/18 04:55 12/05/18 04:55 Labs: Abnormal Lab Results - Last 24 Hours (Table) 12/04/18 12/04/18 12/04/18 Range/Units 11:29 16:53 20:46 WBC (3.8-10.6) k/uL RBC (3.80-5.40) m/uL Hgb (11.4-16.0) gm/dL Hct (34.0-46.0) % Neutrophils # (1.3-7.7) k/uL Lymphocytes # (1.0-4.8) k/uL Sodium (137-145) mmol/L Chloride (98-107) mmol/L Carbon Dioxide (22-30) mmol/L BUN (7-17) mg/dL Glucose (74-99) mg/dL POC Glucose (mg/dL) 180 H 176 H 60 L (75-99) mg/dL Calcium (8.4-10.2) mg/dL Total Protein (6.3-8.2) g/dL Albumin (3.5-5.0) g/dL 12/04/18 12/04/18 12/05/18 Range/Units 21:11 23:22 04:55 WBC 20.4 H (3.8-10.6) k/uL RBC 3.76 L (3.80-5.40) m/uL Hgb 10.4 L (11.4-16.0) gm/dL Hct 33.0 L (34.0-46.0) % Neutrophils # 19.0 H (1.3-7.7) k/uL Lymphocytes # 0.4 L (1.0-4.8) k/uL Sodium (137-145) mmol/L Chloride (98-107) mmol/L Carbon Dioxide (22-30) mmol/L BUN (7-17) mg/dL Glucose (74-99) mg/dL POC Glucose (mg/dL) 73 L 150 H (75-99) mg/dL Calcium (8.4-10.2) mg/dL Total Protein (6.3-8.2) g/dL Albumin (3.5-5.0) g/dL 12/05/18 12/05/18 Range/Units 04:55 06:56 WBC (3.8-10.6) k/uL RBC (3.80-5.40) m/uL Hgb (11.4-16.0) gm/dL Hct (34.0-46.0) % Neutrophils # (1.3-7.7) k/uL Lymphocytes # (1.0-4.8) k/uL Sodium 136 L (137-145) mmol/L Chloride 93 L (98-107) mmol/L Carbon Dioxide 40 H (22-30) mmol/L BUN 36 H (7-17) mg/dL Glucose 198 H (74-99) mg/dL POC Glucose (mg/dL) 193 H (75-99) mg/dL Calcium 8.3 L (8.4-10.2) mg/dL Total Protein 5.6 L (6.3-8.2) g/dL Albumin 2.9 L (3.5-5.0) g/dL Assessment and Plan Assessment: 1. Acute aspiration pneumonia, leading to acute hypoxic respiratory failure, requiring intubation and mechanical ventilation. . Patient also on Solu- Medrol 60 mg every 6 hours. Per pulmonary services Lasix has been increased to 40 twice a day. Repeat chest x-ray completed showing continued changes of mild- to-moderate CHF with pulmonary vascular congestion. Small to moderate pleural effusions with adjacent atelectasis and consolidation. Patient remains on IV steroids and Lasix. 2. Acute sepsis secondary to pneumonia. Patient remains off pressors. Lactic acid 5.3. Repeat 3.0 Blood culture currently growing Staphylococcus epidermidis. Dr. Robins has been consulted for infectious disease. remains on Maxipime and vancomycin. 3. Severe complete third-degree high-grade AV block. Patient did have TVP in place. TVP has been pulled per cardiology services. Per cardiology services possible placement of permanent pacemaker once pulmonary status improved. 4. Fluid overload and generalized anasarca. Maintained IV Lasix 5. Lactic acidosis secondary due to due to poor perfusion and cardiogenic shock 6. Hyponatremia. Improving to 134 7. Acute renal failure stage III. Creatinine 0.69 and bun 25 8. History of essential hypertension 9. History of osteoarthritis 10. History of anxiety and depression 11. Hyperglycemia due to steroids. Patient placed on sliding scale steroid coverage. Hemoglobin A1c 6.4 from 11/26/2018 Patient will likely need ECF placement upon discharge social work and physical therapy consulted DVT prophylaxis heparin. GI prophylaxis pepcid I performed an examination of the patient and discussed their management with the Nurse Practitioner. I have reviewed the Nurse Practitioner's notes and agree with the documented findings and plan of care
[2018-12-05 11:37] LABS: Glucose,Whole Blood 139 mg/dL (75-99)
--- NOTE | 2018-12-05 12:01 | P.PN ---
Subjective Progress Note Date: 12/05/18 Principal diagnosis: Bilateral aspiration pneumonia, and diastolic congestive heart failure This is a 73-year-old female I'm seeing today on 12/01/2018, patient was admitted almost a week ago with complete heart block and aspiration pneumonia some component of diastolic congestive heart failure/fluid overload. Patient was followed all along by Dr. Diaz, and she was seen yesterday by Dr. Sánchez who was covering Dr. Diaz while the patient is in the ICU. Patient had aspiration pneumonia, sepsis, complete heart block, fluid overload, acute respiratory failure with hypoxemia, lactic acidosis, acute renal failure, shock liver, and she was eventually extubated the day before yesterday. Remains in the ICU, she is on nasal cannula, and she has BiPAP at bedside to be used during sleep time. Patient is feeling good, she has cough and wheezing, but she denies being short of breath. She is extremely pleasant. Again she is basically asymptomatic. Chest x-ray was reviewed and it showed congestive heart failure changes with trace of right and [id number] left pleural effusion with pulmonary vascular congestion again it is mostly consistent with diastolic congestive heart failure. Labs were reviewed, she had a relatively normal CBC hemoglobin is 9.5 left lites are normal bicarb is 35 BUN is 25 creatinine 0.69. All meds were reviewed remains on bronchodilators, antibiotics, and I went ahead and increased her Lasix to 40 mg IV push every 12 hours. Reevaluated today on 12/02/2018, patient remains in the ICU, she had some episodes of confusion last night, didn't require placement on BiPAP. However patient seems to be alert oriented 3 this morning, and she does not seem to be in any form of distress. Presently on BiPAP, she is on IPAP of 14 and EPAP of 6 , and her FiO2 is being titrated to keep O2 saturation above 90%. Her confusion seems to have resolved, but apparently she has been noted to have confusion every night. Labs were reviewed, she had a relatively normal electrolytes, normal renal profile, and normal CBC. Chest x-ray continues to show some evidence of congestive heart failure with trace and [id number] left pleural effusion and pulmonary congestion. Patient today denies any headache no blurred vision no dizziness, no cough no wheezing, no nausea no vomiting no abdominal pain. Patient was reevaluated in the ICU today on 12/03/2018, remains on nasal cannula, doing fairly well, she does appear a bit more alert compared to yesterday. Not confused, patient is breathing easier, and she is on nasal cannula. Chest x- ray which I ordered today showed mild congestive heart failure changes and interstitial edema, significantly improved over the last few days. Labs were all reviewed, she has a relatively normal electrolytes, however her bicarb is 37 BUN is 33 creatinine 0.84. WBC count is 9.7 hemoglobin is 9.5. Medications were all reviewed, remains on bronchodilators, antibiotics, diuretics, she is also on GI and DVT prophylaxis. Patient was reevaluated in the ICU today on 12/04/2018, sitting in bed, comfortable, in no distress, denies any shortness of breath or cough or wheezing , denies any chest pain, however she is complaining of vague abdominal discomfort. Her abdomen however is soft. Chest x-ray was not done today, but the chest x-ray from yesterday showed mild congestive heart failure and pulmonary vascular congestion. Paaxi-bj-[id number] pleural effusions. With adjacent atelectasis. All labs from today including CBC and basic metabolic profile were reviewed, seem to be relatively normal. All meds she is presently on were reviewed. She remains on Lasix at 40 mg IV push every 12 hours. She remains on methylprednisolone which I will cut down further, and she remains on antibiotics./Cefepime. Patient was reevaluated today on 12/05/2018, remains as an overflow in the intensive care unit. Doing well, she continues to have intermittent episodes of confusion but today she seems to be very alert oriented, knew exactly what she was, she knew the year, and she knew the month. Patient is feeling better overall, her GI symptoms have resolved, denies any cough no wheezing no shortness of breath, she is presently on 3 L nasal cannula. Her CBC showed leukocytosis with WBC count of 20.4. Electrolytes are normal renal profile is normal. Bicarb is 40. No chest x-ray was done. Her chest x-ray yesterday and the day before was showing steady improvement in her congestive heart failure and infiltrates. Objective - Vital Signs Vital signs: Vital Signs Temp 98.0 F 12/05/18 04:00 Pulse 96 12/05/18 11:38 Resp 22 12/05/18 04:00 BP 146/85 12/05/18 04:00 Pulse Ox 96 12/05/18 04:00 Intake & Output 12/04/18 12/05/18 12/05/18 18:59 06:59 18:59 Intake Total 650 740 Output Total 970 900 Balance -320 -160 Weight 122.7 kg 124.9 kg Intake: IV 240 240 Sodium Chloride 0.9% 1, 240 240 000 ml @ 20 mls/hr IV . Q24H [facility] Rx#:[id number] Intake, IV Titration 50 Amount Cefepime 2 gm In Sodium 50 Chloride 0.9% 50 ml @ 100 mls/hr IVPB Q12HR [facility] Rx #:[id number] Oral 360 500 Output: Urine 970 900 Other: Voiding Method Indwelling Catheter Indwelling Catheter ABP, PAP, CO, CI - Last Documented Arterial Blood Pressure 117/67 - Exam Physical Exam: Revealed a 73-year-old female in no distress. On 3 L nasal cannula. Head: Atraumatic, normocephalic, HEENT:[Neck is supple.] [No neck masses.] [No thyromegaly.] [No JVD.] PERRLA, EOMI, no icterus. Chest: Diminished breath sounds at bases, crackles at the bases no wheezes. Cardiac Exam: [Normal S1 and S2, no S3 gallop, no murmur.] Abdomen: [Obese, Soft, nontender, no megaly, no rebound, no guarding, normal bowel sounds.] Extremities: [No clubbing, trace of bipedal edema, no cyanosis.] Neurological Exam: [No focal neurologic deficit.] Psychiatric: Normal mood, affect and mental status examination. Skin: No rashes. Normal turgor. - Labs CBC & Chem 7: 12/05/18 04:55 12/05/18 04:55 Labs: Abnormal Lab Results - Last 24 Hours (Table) 12/04/18 12/04/18 12/04/18 Range/Units 16:53 20:46 21:11 WBC (3.8-10.6) k/uL RBC (3.80-5.40) m/uL Hgb (11.4-16.0) gm/dL Hct (34.0-46.0) % Neutrophils # (1.3-7.7) k/uL Lymphocytes # (1.0-4.8) k/uL Sodium (137-145) mmol/L Chloride (98-107) mmol/L Carbon Dioxide (22-30) mmol/L BUN (7-17) mg/dL Glucose (74-99) mg/dL POC Glucose (mg/dL) 176 H 60 L 73 L (75-99) mg/dL Calcium (8.4-10.2) mg/dL Total Protein (6.3-8.2) g/dL Albumin (3.5-5.0) g/dL 12/04/18 12/05/18 12/05/18 Range/Units 23:22 04:55 04:55 WBC 20.4 H (3.8-10.6) k/uL RBC 3.76 L (3.80-5.40) m/uL Hgb 10.4 L (11.4-16.0) gm/dL Hct 33.0 L (34.0-46.0) % Neutrophils # 19.0 H (1.3-7.7) k/uL Lymphocytes # 0.4 L (1.0-4.8) k/uL Sodium 136 L (137-145) mmol/L Chloride 93 L (98-107) mmol/L Carbon Dioxide 40 H (22-30) mmol/L BUN 36 H (7-17) mg/dL Glucose 198 H (74-99) mg/dL POC Glucose (mg/dL) 150 H (75-99) mg/dL Calcium 8.3 L (8.4-10.2) mg/dL Total Protein 5.6 L (6.3-8.2) g/dL Albumin 2.9 L (3.5-5.0) g/dL 12/05/18 12/05/18 Range/Units 06:56 11:36 WBC (3.8-10.6) k/uL RBC (3.80-5.40) m/uL Hgb (11.4-16.0) gm/dL Hct (34.0-46.0) % Neutrophils # (1.3-7.7) k/uL Lymphocytes # (1.0-4.8) k/uL Sodium (137-145) mmol/L Chloride (98-107) mmol/L Carbon Dioxide (22-30) mmol/L BUN (7-17) mg/dL Glucose (74-99) mg/dL POC Glucose (mg/dL) 193 H 139 H (75-99) mg/dL Calcium (8.4-10.2) mg/dL Total Protein (6.3-8.2) g/dL Albumin (3.5-5.0) g/dL Assessment and Plan Assessment: Impression: 1: Acute aspiration pneumonia, leading to acute hypoxic respiratory failure, requiring intubation and mechanical ventilation. Resolved, and the patient had demonstrated a significant improvement. 2 acute sepsis secondary to pneumonia,septic shock requiring pressors and fluid boluses at one point. 8 third-degree AV block requiring transvenous pacemaker/temporary. 3 fluid overload and generalized anasarca, acute diastolic congestive heart failure 4 acute on chronic renal failure stage III 5 shock liver, improving 6 bacteremia/positive blood culture, however felt to be secondary to contamination 7 diastolic congestive heart failure hence more diuretics were added. 8 third-degree AV block requiring temporary transvenous pacemaker placement. 9 intermittent episodes of confusion, most likely related to metabolic encephalopathy. Recommendation: Continue diuretics, antibiotics, steroids, continue to monitor x -rays every 2 days, continue to monitor electrolytes and renal profile, patient is presently on overflow, continues to have significant complex medical issues, continues to have a right IJ central line which will be removed in the next couple of days. And a peripheral IV access would have to be established. Prognosis remains extremely poor and guarded, patient remains quite ill, and she continues to have many complex medical problems. Will follow. Time with Patient: Less than 30
[2018-12-05] MEDS: ONDANSETRON 4 MG/2 ML VIAL IVP PRN ×2 (12:11→23:20)
[2018-12-05] MEDS: FOLIC ACID 1 MG TAB PO SCH (12:16)
--- NOTE | 2018-12-05 13:02 | P.PN ---
Progress Note - Text No further evidence of AV block. She was originally seen by Dr. Mcnamara and TVP was placed temporarily which was removed. Subsequently she has not had any further AV block. If there is any further evidence of AV block please do not hesitate to call Dr. Mcnamara once again
[2018-12-05 16:45] LABS: Glucose,Whole Blood 146 mg/dL (75-99)
[2018-12-05] MEDS: SENNOSIDES 8.6 MG TAB PO PRN (20:20)
[2018-12-05 20:22] LABS: Glucose,Whole Blood 169 mg/dL (75-99)
--- NOTE | 2018-12-05 20:56 | PN ---
PROGRESS NOTE DATE OF SERVICE: 12/05/2018 REASON FOR FOLLOWUP: Pneumonia. INTERVAL HISTORY: The patient is currently afebrile. She is breathing comfortably. She did have some cough but not bringing up any sputum. No chest pain. No abdominal pain. No diarrhea. PHYSICAL EXAMINATION: Blood pressure is 122/77 with a pulse of 80, temperature 97. She is 96% on BiPAP. General description is an elderly female no distress. Respiratory system: Unlabored breathing. Decreased breath sounds at the bases. No wheeze. Heart S1, S2. Regular rate and rhythm. ABDOMEN: Soft, no tenderness. LABS: Hemoglobin is 10.4, white count 8000, BUN of 36, creatinine 0.87. DIAGNOSTIC IMPRESSION AND PLAN: Patient admitted to the hospital with acute nausea and vomiting in a patient who also has fever with concern for possible gram-negative pneumonia currently covered with cefepime. The patient did have jump in white count more likely due to steroids started yesterday. However the patient also has been exposed to antibiotics and concern for possible oropharyngeal candidiasis. We will add Diflucan, nystatin swish and swallow and watch her clinical course closely. Continue supportive care. MMODL / IJN: [id number] /
[2018-12-06] MEDS: ACETAMINOPHEN TAB 500 MG TAB PO PRN ×3 (01:40→20:44)
[2018-12-06 04:49] LABS: Basophils % (A) 0 %; Eosinophils % (A) 0 %; HCT 32.8 % (34.0-46.0); HGB 10.2 gm/dL (11.4-16.0); Lymphocytes # (A) 0.5 k/uL (1.0-4.8); Lymphocytes % (A) 2 %; MCH 27.5 pg (25.0-35.0); MCHC 31.1 g/dL (31.0-37.0); MCV 88.6 fL (80.0-100.0); Mean Platelet Volume 6.6; Monocytes # (A) 0.8 k/uL (0-1.0); Monocytes % (A) 3 %; Neutrophils % (A) 95 %; Platelet Count 339 k/uL (150-450); RDW 14.5 % (11.5-15.5); WBC 27.5 k/uL (3.8-10.6)
[2018-12-06 04:59] LABS: Albumin 2.7 g/dL (3.5-5.0); Total Bilirubin 0.5 mg/dL (0.2-1.3); Total Protein 5.4 g/dL (6.3-8.2)
[2018-12-06 06:41] LABS: Glucose,Whole Blood 184 mg/dL (75-99)
[2018-12-06] MEDS: INSULIN ASPART 100 UNIT/ML 1 ML 10 ML VIAL SQ SCH ×7 (06:44→21:27)
--- NOTE | 2018-12-06 07:19 | XR ---
EXAMINATION TYPE: XR chest 1V portable DATE OF EXAM: 12/06/2018 HISTORY: CHF. REFERENCE: Previous study dated 12/03/2018. FINDINGS: Right internal jugular catheter remains in place. Its tip is at the cavoatrial junction. The heart is enlarged. There are bilateral effusions, greater on the left than the right. There is bi lateral atelectatic change similar to previous study. There is mild vascular congestion without jay edema at this time. IMPRESSION: 1. CARDIOMEGALY. 2. BILATERAL EFFUSIONS. 3. BIBASILAR ATELECTASIS. 4. MILD VASCULAR CONGESTION.
[2018-12-06] MEDS: ALBUTEROL NEBULIZED 2.5 MG/3 ML INHALATION SCH ×5 (09:10→19:18)
[2018-12-06] MEDS: DULoxetine HCL 30 MG CAPSULE.DR PO SCH (09:13)
[2018-12-06] MEDS: buPROPion SR 100 MG TABLET.ER PO SCH (09:13)
[2018-12-06] MEDS: FAMOTIDINE 20 MG/2 ML VIAL IV SCH (09:13)
[2018-12-06] MEDS: levETIRAcetam 500 MG TAB PO SCH ×2 (09:13→20:44)
[2018-12-06] MEDS: MONTELUKAST 10 MG TAB PO SCH (09:13)
[2018-12-06] MEDS: HEPARIN SODIUM,PORCINE 5,000 UNIT/ML 1 ML VIAL SQ SCH ×2 (09:14→20:49)
[2018-12-06] MEDS: FUROSEMIDE 10 MG/ML 4 ML VIAL IV SCH ×2 (09:14→20:51)
[2018-12-06] MEDS: CEFEPIME 2 GM in SODIUM CHLORIDE 0.9% 50 ML IVPB SCH ×2 (09:14→20:58)
[2018-12-06] MEDS: methylPREDNISolone SOD SUCCI 40 MG/ML 1 ML VIAL IV SCH ×2 (09:14→20:53)
[2018-12-06] MEDS: BUDESONIDE 1 MG/2 ML NEBU INHALATION SCH ×3 (09:26→19:18)
[2018-12-06] MEDS: SODIUM CHLORIDE 0.9% 1,000 ML IV SCH (09:54)
--- NOTE | 2018-12-06 10:51 | P.PN ---
Subjective Progress Note Date: 12/06/18 Principal diagnosis: Bilateral aspiration pneumonia, and diastolic congestive heart failure This is a 73-year-old female I'm seeing today on 12/01/2018, patient was admitted almost a week ago with complete heart block and aspiration pneumonia some component of diastolic congestive heart failure/fluid overload. Patient was followed all along by Dr. Diaz, and she was seen yesterday by Dr. Sánchez who was covering Dr. Diaz while the patient is in the ICU. Patient had aspiration pneumonia, sepsis, complete heart block, fluid overload, acute respiratory failure with hypoxemia, lactic acidosis, acute renal failure, shock liver, and she was eventually extubated the day before yesterday. Remains in the ICU, she is on nasal cannula, and she has BiPAP at bedside to be used during sleep time. Patient is feeling good, she has cough and wheezing, but she denies being short of breath. She is extremely pleasant. Again she is basically asymptomatic. Chest x-ray was reviewed and it showed congestive heart failure changes with trace of right and [id number] left pleural effusion with pulmonary vascular congestion again it is mostly consistent with diastolic congestive heart failure. Labs were reviewed, she had a relatively normal CBC hemoglobin is 9.5 left lites are normal bicarb is 35 BUN is 25 creatinine 0.69. All meds were reviewed remains on bronchodilators, antibiotics, and I went ahead and increased her Lasix to 40 mg IV push every 12 hours. Reevaluated today on 12/02/2018, patient remains in the ICU, she had some episodes of confusion last night, didn't require placement on BiPAP. However patient seems to be alert oriented 3 this morning, and she does not seem to be in any form of distress. Presently on BiPAP, she is on IPAP of 14 and EPAP of 6 , and her FiO2 is being titrated to keep O2 saturation above 90%. Her confusion seems to have resolved, but apparently she has been noted to have confusion every night. Labs were reviewed, she had a relatively normal electrolytes, normal renal profile, and normal CBC. Chest x-ray continues to show some evidence of congestive heart failure with trace and [id number] left pleural effusion and pulmonary congestion. Patient today denies any headache no blurred vision no dizziness, no cough no wheezing, no nausea no vomiting no abdominal pain. Patient was reevaluated in the ICU today on 12/03/2018, remains on nasal cannula, doing fairly well, she does appear a bit more alert compared to yesterday. Not confused, patient is breathing easier, and she is on nasal cannula. Chest x- ray which I ordered today showed mild congestive heart failure changes and interstitial edema, significantly improved over the last few days. Labs were all reviewed, she has a relatively normal electrolytes, however her bicarb is 37 BUN is 33 creatinine 0.84. WBC count is 9.7 hemoglobin is 9.5. Medications were all reviewed, remains on bronchodilators, antibiotics, diuretics, she is also on GI and DVT prophylaxis. Patient was reevaluated in the ICU today on 12/04/2018, sitting in bed, comfortable, in no distress, denies any shortness of breath or cough or wheezing , denies any chest pain, however she is complaining of vague abdominal discomfort. Her abdomen however is soft. Chest x-ray was not done today, but the chest x-ray from yesterday showed mild congestive heart failure and pulmonary vascular congestion. [id number] pleural effusions. With adjacent atelectasis. All labs from today including CBC and basic metabolic profile were reviewed, seem to be relatively normal. All meds she is presently on were reviewed. She remains on Lasix at 40 mg IV push every 12 hours. She remains on methylprednisolone which I will cut down further, and she remains on antibiotics./Cefepime. Patient was reevaluated today on 12/05/2018, remains as an overflow in the intensive care unit. Doing well, she continues to have intermittent episodes of confusion but today she seems to be very alert oriented, knew exactly what she was, she knew the year, and she knew the month. Patient is feeling better overall, her GI symptoms have resolved, denies any cough no wheezing no shortness of breath, she is presently on 3 L nasal cannula. Her CBC showed leukocytosis with WBC count of 20.4. Electrolytes are normal renal profile is normal. Bicarb is 40. No chest x-ray was done. Her chest x-ray yesterday and the day before was showing steady improvement in her congestive heart failure and infiltrates. Reevaluated today on 12/06/2018, patient remains as an overflow in the ICU. Clinically the patient is doing better, denies any cough no wheezing no shortness of breath. Denies any abdominal pain, no abdominal discomfort, no nausea no vomiting, does not have any diarrhea as a matter of fact she has not had a bowel movement over the last few days. But she is not in any distress, and her abdomen is soft. Her CBC is showing evidence of leukocytosis, patient remains on antibiotics, today I recommended pancultures. WBC count is 27.5 hemoglobin is 10.2. Electrolytes are normal renal profile is normal. Chest x- ray showed cardiomegaly, small bilateral effusions, and bibasilar atelectasis. Objective - Vital Signs Vital signs: Vital Signs Temp 98.1 F 12/06/18 08:00 Pulse 92 12/06/18 10:00 Resp 22 12/06/18 10:00 BP 132/82 12/06/18 10:00 Pulse Ox 95 12/06/18 10:00 Intake & Output 12/05/18 12/06/18 12/06/18 18:59 06:59 18:59 Intake Total 370 490 Output Total 1850 1375 380 Balance -1480 -885 -380 Weight 119.8 kg Intake: IV 320 240 Sodium Chloride 0.9% 1, 320 240 000 ml @ 20 mls/hr IV . Q24H [facility] Rx#:[id number] Intake, IV Titration 50 Amount Cefepime 2 gm In Sodium 50 Chloride 0.9% 50 ml @ 100 mls/hr IVPB Q12HR [facility] Rx #:[id number] Oral 250 Output: Urine 1850 1375 380 Other: Voiding Method Indwelling Catheter Indwelling Catheter Indwelling Catheter ABP, PAP, CO, CI - Last Documented Arterial Blood Pressure 117/67 - Exam Physical Exam: 73-year-old female in no distress. On 3 L nasal cannula. Asymptomatic. Head: Atraumatic, normocephalic, HEENT:[Neck is supple.] [No neck masses.] [No thyromegaly.] [No JVD.] PERRLA, EOMI, no icterus. Chest: Diminished breath sounds at bases, no crackles, no rhonchi and no wheezes.. Cardiac Exam: [Normal S1 and S2, no S3 gallop, no murmur.] Abdomen: [Obese, Soft, nontender, no megaly, no rebound, no guarding, normal bowel sounds.] Extremities: [No clubbing, trace of bipedal edema, no cyanosis.] Neurological Exam: [No focal neurologic deficit.] Psychiatric: Normal mood, affect and mental status examination. Skin: No rashes. Lymphatics: No lymphadenopathy. - Labs CBC & Chem 7: 12/06/18 04:36 12/06/18 04:40 Labs: Abnormal Lab Results - Last 24 Hours (Table) 12/05/18 12/05/18 12/05/18 Range/Units 11:36 16:44 20:20 WBC (3.8-10.6) k/uL RBC (3.80-5.40) m/uL Hgb (11.4-16.0) gm/dL Hct (34.0-46.0) % Neutrophils # (1.3-7.7) k/uL Lymphocytes # (1.0-4.8) k/uL Sodium (137-145) mmol/L Chloride (98-107) mmol/L Carbon Dioxide (22-30) mmol/L BUN (7-17) mg/dL Glucose (74-99) mg/dL POC Glucose (mg/dL) 139 H 146 H 169 H (75-99) mg/dL Calcium (8.4-10.2) mg/dL Total Protein (6.3-8.2) g/dL Albumin (3.5-5.0) g/dL 12/06/18 12/06/18 12/06/18 Range/Units 04:36 04:40 06:40 WBC 27.5 H (3.8-10.6) k/uL RBC 3.70 L (3.80-5.40) m/uL Hgb 10.2 L (11.4-16.0) gm/dL Hct 32.8 L (34.0-46.0) % Neutrophils # 26.0 H (1.3-7.7) k/uL Lymphocytes # 0.5 L (1.0-4.8) k/uL Sodium 133 L (137-145) mmol/L Chloride 89 L (98-107) mmol/L Carbon Dioxide 40 H (22-30) mmol/L BUN 32 H (7-17) mg/dL Glucose 168 H (74-99) mg/dL POC Glucose (mg/dL) 184 H (75-99) mg/dL Calcium 8.0 L (8.4-10.2) mg/dL Total Protein 5.4 L (6.3-8.2) g/dL Albumin 2.7 L (3.5-5.0) g/dL Assessment and Plan Assessment: Impression: 1 Acute hypoxic respiratory failure secondary to aspiration pneumonia and diastolic congestive heart failure, requiring intubation and mechanical ventilation. 2 acute sepsis secondary to pneumonia,septic shock requiring pressors and fluid boluses at one point. 8 third-degree AV block requiring transvenous pacemaker/temporary. 3 fluid overload and generalized anasarca, acute diastolic congestive heart failure 4 acute on chronic renal failure stage III 5 shock liver, improving 6 bacteremia/positive blood culture, however felt to be secondary to contamination 7 diastolic congestive heart failure hence more diuretics were added. 8 third-degree AV block requiring temporary transvenous pacemaker placement. 9 intermittent episodes of confusion, most likely related to metabolic encephalopathy. 10 leukocytosis, exact etiology is not clear, hence will order pancultures, continue antibiotics in the meantime, may have to consider removing the right IJ triple-lumen catheter. Clinically however the patient is not behaving like septic at this point. Recommendation: Continue present supportive care measures including antibiotics , diuretics, steroids, we will taper the steroids down further, ordered a number of cultures including blood cultures, patient remains as an overflow, waiting for a bed on selective, all her meds were reviewed, labs were all reviewed, chest x-ray was reviewed, overall the patient has made a significant improvement, but she is not quite ready for discharge planning continues to have many complex issues being addressed as above. Time with Patient: Less than 30
[2018-12-06 11:49] LABS: Glucose,Whole Blood 178 mg/dL (75-99)
[2018-12-06] MEDS: FOLIC ACID 1 MG TAB PO SCH (15:23)
[2018-12-06] MEDS: FLUCONAZOLE 100 MG TAB PO SCH (17:02)
[2018-12-06 17:08] LABS: Glucose,Whole Blood 182 mg/dL (75-99)
[2018-12-06] MEDS: SENNOSIDES 8.6 MG TAB PO PRN (20:44)
[2018-12-06 21:25] LABS: Glucose,Whole Blood 172 mg/dL (75-99)
[2018-12-06] MEDS: ONDANSETRON 4 MG/2 ML VIAL IVP PRN (21:27)
[2018-12-07] MEDS: ACETAMINOPHEN TAB 500 MG TAB PO PRN ×2 (04:10→20:36)
[2018-12-07 04:35] LABS: Basophils % (A) 0 %; Eosinophils # (A) 0.1 k/uL (0-0.7); Eosinophils % (A) 0 %; HCT 32.3 % (34.0-46.0); HGB 10.1 gm/dL (11.4-16.0); Lymphocytes # (A) 0.4 k/uL (1.0-4.8); Lymphocytes % (A) 2 %; MCH 27.6 pg (25.0-35.0); MCHC 31.4 g/dL (31.0-37.0); MCV 88.1 fL (80.0-100.0); Monocytes # (A) 0.5 k/uL (0-1.0); Monocytes % (A) 2 %; Neutrophils # (A) 23.8 k/uL (1.3-7.7); Neutrophils % (A) 96 %; Platelet Count 327 k/uL (150-450); RBC 3.66 m/uL (3.80-5.40); RDW 14.3 % (11.5-15.5); WBC 24.9 k/uL (3.8-10.6)
[2018-12-07 04:46] LABS: Albumin 2.9 g/dL (3.5-5.0); Calcium 8.2 mg/dL (8.4-10.2); Total Bilirubin 0.5 mg/dL (0.2-1.3); Total Protein 5.6 g/dL (6.3-8.2)
[2018-12-07] MEDS: ALPRAZolam 0.25 MG TAB PO PRN ×2 (04:46→23:21)
--- NOTE | 2018-12-07 06:57 | XR ---
EXAMINATION TYPE: XR chest 1V portable DATE OF EXAM: 12/07/2018 HISTORY: SOB. REFERENCE: Previous study dated 12/06/2018. FINDINGS: A right internal jugular catheter remains in place. Its tip is at the cavoatrial junction. There is bibasilar airspace disease. There are small bilateral effusions. There is some platelike ate lectasis in the right midlung. The heart is enlarged. IMPRESSION: NO SIGNIFICANT INTERVAL CHANGE IN THE APPEARANCE OF THE CHEST.
[2018-12-07 07:03] LABS: Glucose,Whole Blood 206 mg/dL (75-99)
[2018-12-07] MEDS: ALBUTEROL NEBULIZED 2.5 MG/3 ML INHALATION SCH ×4 (08:04→18:55)
[2018-12-07] MEDS: BUDESONIDE 1 MG/2 ML NEBU INHALATION SCH (08:04)
--- NOTE | 2018-12-07 08:19 | P.PN ---
Subjective Progress Note Date: 12/07/18 73-year-old female who was seen evaluated examined on medical floor, this patient admitted into the hospital earlier this morning with problems associated with nauseous feeling and nasopharyngeal swab for influenza A and B were both negative, her symptoms started a day before she has not been taking able to take anything by mouth she is not taking her home medication as well, patient has been having looser stool as well overall symptoms appeared to be like gastroenteritis however no bloody diarrhea has been noted, patient denies any emesis denies any abdominal pain and on specific questioning denies any chest pain or radiation of pain, she does have a history of COPD and chronic persistent asthma, patient also has a history of hypertension hypertensive cardiovascular disease and advanced steroid-dependent rheumatoid arthritis, she has not been formally evaluated for sleep disorder breathing and sleep apnea, on medical floor patient was found to be bradycardic which was a significant change compared to her admit vitals, patient was however hemodynamically stable but due to significant bradycardia transferred to the selective care/ICU if no bed is available consult with cardiology has been also initiated, they felt that patient to be monitored and observed dopamine/dopamine and check agents were not initiated as patient was hemodynamically stable and bradycardia thought to be related to exaggerated vagal response, review of the data also revealed that patient is hyponatremic, initial EKG revealed sinus tachycardia with left bundle branch block and currently developed high degree AV block, patient failed to capture external pacemaker eventually due to severe restlessness and significant bradycardia was intubated and cardiovascular services took her to the Lab at transvenous temporary pacemaker has been inserted through the groin, and A-line has been inserted by the anesthesia, patient only has a single lumen groin catheter through which transvenous pacemaker is present being infused with 10 mics of levo fed as well as dopamine to keep map around 65-70 patient is on full ventilator support initially patient was place on assist control rate of 20 tidal volume of 505 of PEEP 100% oxygen now rate is being cut down to 14 PEEP is 5 FiO2 Is Lowered down to 50%, 11/26/2018 patient seen eval reexamined during the rounds clinically patient remains sedated with propofol drip currently patient is on 20 mics able to come down however hemodynamic status remains marginal, patient require 100% pacing as without heart rate drops down to less than 30, patient is also on levo fed drip 35 mics, and dopamine drip 10 mics, currently maintenance IV fluids 50 mL an hour being given, patient has been found to be hypokalemic potassium has been replaced, chest x-ray revealed a possible developing left lower lobe infiltrate cannot be excluded along with small effusion, on assist control rate of 12 breathing 12 tidal volume of 500, with PEEP of 5, FiO2 is down to 40%, chest x-ray reviewed laboratory data reviewed, critical care time spent 40 minutes 11/27/2018, patient seen eval examined during the rounds clinically patient is slightly improving terms of hemodynamics, the heart block has improvement, heart rate spontaneous is in 60s to 70s, blood pressure map remains over 60-70, patient however remains on dopamine which has been titrated down to 2 mics, the levo fed has been lowered down to 6 mics as well, patient is 15 mics of propofol she is arousable does open eyes, she remains on full vent setting with assist control 12 breathing 12 tidal volume is 500, PEEP is 5, oxygen is down to 40%, chest x-ray laboratory data reviewed, blood cultures appears to be contamination as coag-negative staph has been noted, ID service has been consulted, care plan discussed with the staff at length, cardiovascular services recommendations reviewed, critical care time spent 35 minutes 11/28/2018, patient seen eval examined during rounds clinically is now off of vasopressors dopamine levo fed has been discontinued, patient has been on assist control mode switched over to CPAP 5 pressure support of 10, patient is monitor and observe on the pressure support and CPAP, spontaneous tidal volume at 300 range respiratory rate in the low 20s, saturation remains 90%, patient is still somnolent but arousable, will plan to have extended weaning for one hour and then will check arterial blood gas which was reviewed as well patient tolerated the CPAP pressure trial and very well is being extubated, otherwise patient remains afebrile respiratory secretions stable labs x-rays and radiographic studies reviewed, patient appears to have component of anasarca 40 mg of Lasix IVs does being given will put patient on daily IV furosemide as well , critical care time spent 35 minutes 11/29/2018, patient seen eval reexamined during the rounds she has been successfully weaned and active extubated she is on supplemental oxygen very weak though, patient is still have a temperature transvenous pacemaker, which is set at 40, patient is back to her sinus rhythm, patient does have a history of sleep disorder breathing and sleep apnea as per discussion with the daughter she does not use her CPAP machine very regularly, I have educated them extensively at, patient remains on broad-spectrum antibiotics labs reviewed medications reviewed radiographic studies reviewed as well, chest x-ray revealed a small pleural effusion with right basal infiltrate cardiomegaly stable triple-lumen catheter 12/01/2018. Patient remains in the intensive care unit. Patient currently on 4 L. temporary pacemaker has been removed per cardiology services. Heart rate has remained stable. At this time patient denies any chest pain or shortness breath. Patient denies nausea vomiting or diarrhea. Patient denies any urinary burning or frequency on 12/02/2018 patient remains in the intensive care unit. Patient is currently sleeping with BiPAP in place. Patient's heart rate has remained within normal limits. At this time patient denies chest pain or shortness of breath. Patient denies nausea vomiting or diarrhea. Patient denies any urinary burning or frequency. Per nursing staff patient did have a bout of confusion throughout night which is not the first occurrence On 12/03/2018 patient does appear more alert than yesterday. Patient does have increased upper respiratory wheezing. Chest x-ray ordered per critical care team. At this time patient denies chest pain or shortness breath. Patient denies nausea vomiting or diarrhea. Patient denies any urinary burning or frequency. On 12/04/2018 patient is awake and alert. Patient's expiratory wheezing does sound improved. At this time patient denies chest pain or shortness of breath. Patient denies nausea vomiting or diarrhea. Patient denies any urinary burning or frequency On 12/05/2018 patient is alert and awake eating breakfast in bed. Per nursing staff patient is a bit more confused today. CO2 is up to 40. Per nursing staff patient did not consistently wear BiPAP throughout night. At this time patient denies chest pain or shortness of breath. Patient denies nausea vomiting or diarrhea. Patient denies any urinary burning or frequency. On 12/06/2018 patient was seen and examined in ICU she required BiPAP throughout the night she is alert and oriented in no apparent distress currently she is maintained on nasal cannula she is still complaining of cough and shortness of breath she denies any chest pain or there is no fever or chills no nausea or vomiting no abdominal pain no diarrhea and no urinary symptoms. On 12/07/2018 patient is alert and oriented 3 in no apparent distress currently maintained on nasal cannula she was able to wear BiPAP throughout the night she states she feels better shortness of breath is improving there is occasional cough she denies any pain or discomfort there is no fever or chills no chest pain no nausea or vomiting no abdominal pain no diarrhea and no urinary symptoms Objective - Vital Signs Vital signs: Vital Signs Temp 98.6 F 12/07/18 04:00 Pulse 80 12/07/18 08:16 Resp 16 12/07/18 04:00 BP 138/79 12/07/18 04:00 Pulse Ox 95 12/07/18 04:00 Intake & Output 12/06/18 12/07/18 12/07/18 18:59 06:59 18:59 Intake Total 410 490 Output Total 1650 1425 Balance -1240 -935 Weight 118.7 kg Intake: IV 160 240 Sodium Chloride 0.9% 1, 160 240 000 ml @ 20 mls/hr IV . Q24H [facility] Rx#:[id number] Oral 250 250 Output: Urine 1650 1425 Other: Voiding Method Indwelling Catheter Indwelling Catheter ABP, PAP, CO, CI - Last Documented Arterial Blood Pressure 117/67 - Exam Head normocephalic and atraumatic Neck supple no JVD no goiter Lungs diminished bilaterally with expiratory wheezing Heart regular rate and rhythm S1-S2, no rub or gallop Abdomen is soft nontender nondistended positive bowel sounds no hepatosplenomegaly Extremities no edema no cyanosis or clubbing Neurological examination currently alert and oriented 3 there is no gross focal deficit - Labs CBC & Chem 7: 12/07/18 04:20 12/07/18 04:20 Labs: Abnormal Lab Results - Last 24 Hours (Table) 12/06/18 12/06/18 12/06/18 Range/Units 11:48 17:07 21:23 WBC (3.8-10.6) k/uL RBC (3.80-5.40) m/uL Hgb (11.4-16.0) gm/dL Hct (34.0-46.0) % Neutrophils # (1.3-7.7) k/uL Lymphocytes # (1.0-4.8) k/uL Sodium (137-145) mmol/L Chloride (98-107) mmol/L Carbon Dioxide (22-30) mmol/L BUN (7-17) mg/dL Glucose (74-99) mg/dL POC Glucose (mg/dL) 178 H 182 H 172 H (75-99) mg/dL Calcium (8.4-10.2) mg/dL Total Protein (6.3-8.2) g/dL Albumin (3.5-5.0) g/dL 12/07/18 12/07/18 12/07/18 Range/Units 04:20 04:20 07:00 WBC 24.9 H (3.8-10.6) k/uL RBC 3.66 L (3.80-5.40) m/uL Hgb 10.1 L (11.4-16.0) gm/dL Hct 32.3 L (34.0-46.0) % Neutrophils # 23.8 H (1.3-7.7) k/uL Lymphocytes # 0.4 L (1.0-4.8) k/uL Sodium 134 L (137-145) mmol/L Chloride 88 L (98-107) mmol/L Carbon Dioxide 40 H (22-30) mmol/L BUN 33 H (7-17) mg/dL Glucose 195 H (74-99) mg/dL POC Glucose (mg/dL) 206 H (75-99) mg/dL Calcium 8.2 L (8.4-10.2) mg/dL Total Protein 5.6 L (6.3-8.2) g/dL Albumin 2.9 L (3.5-5.0) g/dL Microbiology - Last 24 Hours (Table) 12/06/18 10:05 Urine Culture - Preliminary Urine,Catheterized Assessment and Plan Plan: 1. Acute aspiration pneumonia, leading to acute hypoxic respiratory failure, requiring intubation and mechanical ventilation. . Patient also on Solu- Medrol 60 mg every 6 hours. Per pulmonary services Lasix has been increased to 40 twice a day. Repeat chest x-ray completed showing continued changes of mild- to-moderate CHF with pulmonary vascular congestion. Small to moderate pleural effusions with adjacent atelectasis and consolidation. Patient remains on IV steroids and Lasix. 2. Acute sepsis secondary to pneumonia. Patient remains off pressors. Lactic acid 5.3. Repeat 3.0 Blood culture currently growing Staphylococcus epidermidis. Dr. Robins has been consulted for infectious disease. remains on Maxipime and vancomycin. 3. Severe complete third-degree high-grade AV block. Patient did have TVP in place. TVP has been pulled per cardiology services. Per cardiology services possible placement of permanent pacemaker once pulmonary status improved. 4. Fluid overload and generalized anasarca. Maintained IV Lasix 5. Lactic acidosis secondary due to due to poor perfusion and cardiogenic shock 6. Hyponatremia. Improving to 134 7. Acute renal failure stage III. Creatinine 0.69 and bun 25 8. History of essential hypertension 9. History of osteoarthritis 10. History of anxiety and depression 11. Hyperglycemia due to steroids. Patient placed on sliding scale steroid coverage. Hemoglobin A1c 6.4 from 11/26/2018 Patient will likely need ECF placement upon discharge social work and physical therapy consulted DVT prophylaxis heparin. GI prophylaxis pepcid
[2018-12-07] MEDS: FLUCONAZOLE 100 MG TAB PO SCH (08:36)
[2018-12-07] MEDS: MONTELUKAST 10 MG TAB PO SCH (08:36)
[2018-12-07] MEDS: FUROSEMIDE 10 MG/ML 4 ML VIAL IV SCH ×2 (08:36→20:29)
[2018-12-07] MEDS: DULoxetine HCL 30 MG CAPSULE.DR PO SCH (08:36)
[2018-12-07] MEDS: buPROPion SR 100 MG TABLET.ER PO SCH (08:36)
[2018-12-07] MEDS: methylPREDNISolone SOD SUCCI 40 MG/ML 1 ML VIAL IV SCH (08:37)
[2018-12-07] MEDS: HEPARIN SODIUM,PORCINE 5,000 UNIT/ML 1 ML VIAL SQ SCH ×2 (08:37→20:29)
[2018-12-07] MEDS: levETIRAcetam 500 MG TAB PO SCH ×2 (08:37→20:29)
[2018-12-07] MEDS: FAMOTIDINE 20 MG/2 ML VIAL IV SCH (08:37)
[2018-12-07] MEDS: INSULIN ASPART 100 UNIT/ML 1 ML 10 ML VIAL SQ SCH ×7 (08:37→21:11)
--- NOTE | 2018-12-07 08:58 | PN ---
PROGRESS NOTE DATE OF SERVICE: 12/06/2018 REASON FOR FOLLOWUP: 1. Gram-negative pneumonia. 2. Leukocytosis. INTERVAL HISTORY: The patient is currently pleasantly confused. She has been requested to later go to [place] ( ) rest of her life. The patient denies having any chest pain. Occasional cough. No nausea or vomiting. Occasional cough. No abdominal pain. No diarrhea. The patient did have a right IJ since 11/25/2018, currently with other IV access. EXAMINATION: Her blood pressure is 140/72 with a pulse of 80, temperature 98.3 she is 96% on 3 L nasal cannula. General description is an elderly female lying in bed in no distress. Respiratory System: Unlabored breathing. Decreased breath sounds. Heart: S1, S2. Regular rate and rhythm. Abdomen: Soft, no tenderness. LABS: Hemoglobin is 10.2, white count of 27.5 with a BUN of 32, creatinine 0.85. Blood culture has been repeated. DIAGNOSTIC IMPRESSION AND PLAN: 1. Patient with fever, headache, respiratory failure, concern for possible pneumonia put the patient received adequate pain therapy. 2. Patient with elevated white count. Source could be either oropharyngeal candidiasis versus the right IJ which has been there for almost 10 days now. ( ) discontinue the right IJ. Diflucan has been added. If any further white count, we will have to add vancomycin while watching the clinical course closely. Continue supportive care. MMODL / IJN: [id number] /
[2018-12-07] MEDS: CEFEPIME 2 GM in SODIUM CHLORIDE 0.9% 50 ML IVPB SCH ×2 (11:06→20:51)
[2018-12-07] MEDS: SODIUM CHLORIDE 0.9% 1,000 ML IV SCH (11:09)
[2018-12-07] MEDS: predniSONE 20 MG TAB PO SCH (11:09)
[2018-12-07] MEDS: FOLIC ACID 1 MG TAB PO SCH (11:10)
[2018-12-07 11:54] LABS: Glucose,Whole Blood 243 mg/dL (75-99)
--- NOTE | 2018-12-07 13:04 | P.PN ---
Subjective Progress Note Date: 12/07/18 Principal diagnosis: Bilateral aspiration pneumonia, and diastolic congestive heart failure This is a 73-year-old female I'm seeing today on 12/01/2018, patient was admitted almost a week ago with complete heart block and aspiration pneumonia some component of diastolic congestive heart failure/fluid overload. Patient was followed all along by Dr. Diaz, and she was seen yesterday by Dr. Sánchez who was covering Dr. Diaz while the patient is in the ICU. Patient had aspiration pneumonia, sepsis, complete heart block, fluid overload, acute respiratory failure with hypoxemia, lactic acidosis, acute renal failure, shock liver, and she was eventually extubated the day before yesterday. Remains in the ICU, she is on nasal cannula, and she has BiPAP at bedside to be used during sleep time. Patient is feeling good, she has cough and wheezing, but she denies being short of breath. She is extremely pleasant. Again she is basically asymptomatic. Chest x-ray was reviewed and it showed congestive heart failure changes with trace of right and [id number] left pleural effusion with pulmonary vascular congestion again it is mostly consistent with diastolic congestive heart failure. Labs were reviewed, she had a relatively normal CBC hemoglobin is 9.5 left lites are normal bicarb is 35 BUN is 25 creatinine 0.69. All meds were reviewed remains on bronchodilators, antibiotics, and I went ahead and increased her Lasix to 40 mg IV push every 12 hours. Reevaluated today on 12/02/2018, patient remains in the ICU, she had some episodes of confusion last night, didn't require placement on BiPAP. However patient seems to be alert oriented 3 this morning, and she does not seem to be in any form of distress. Presently on BiPAP, she is on IPAP of 14 and EPAP of 6 , and her FiO2 is being titrated to keep O2 saturation above 90%. Her confusion seems to have resolved, but apparently she has been noted to have confusion every night. Labs were reviewed, she had a relatively normal electrolytes, normal renal profile, and normal CBC. Chest x-ray continues to show some evidence of congestive heart failure with trace and [id number] left pleural effusion and pulmonary congestion. Patient today denies any headache no blurred vision no dizziness, no cough no wheezing, no nausea no vomiting no abdominal pain. Patient was reevaluated in the ICU today on 12/03/2018, remains on nasal cannula, doing fairly well, she does appear a bit more alert compared to yesterday. Not confused, patient is breathing easier, and she is on nasal cannula. Chest x- ray which I ordered today showed mild congestive heart failure changes and interstitial edema, significantly improved over the last few days. Labs were all reviewed, she has a relatively normal electrolytes, however her bicarb is 37 BUN is 33 creatinine 0.84. WBC count is 9.7 hemoglobin is 9.5. Medications were all reviewed, remains on bronchodilators, antibiotics, diuretics, she is also on GI and DVT prophylaxis. Patient was reevaluated in the ICU today on 12/04/2018, sitting in bed, comfortable, in no distress, denies any shortness of breath or cough or wheezing , denies any chest pain, however she is complaining of vague abdominal discomfort. Her abdomen however is soft. Chest x-ray was not done today, but the chest x-ray from yesterday showed mild congestive heart failure and pulmonary vascular congestion. [id number] pleural effusions. With adjacent atelectasis. All labs from today including CBC and basic metabolic profile were reviewed, seem to be relatively normal. All meds she is presently on were reviewed. She remains on Lasix at 40 mg IV push every 12 hours. She remains on methylprednisolone which I will cut down further, and she remains on antibiotics./Cefepime. Patient was reevaluated today on 12/05/2018, remains as an overflow in the intensive care unit. Doing well, she continues to have intermittent episodes of confusion but today she seems to be very alert oriented, knew exactly what she was, she knew the year, and she knew the month. Patient is feeling better overall, her GI symptoms have resolved, denies any cough no wheezing no shortness of breath, she is presently on 3 L nasal cannula. Her CBC showed leukocytosis with WBC count of 20.4. Electrolytes are normal renal profile is normal. Bicarb is 40. No chest x-ray was done. Her chest x-ray yesterday and the day before was showing steady improvement in her congestive heart failure and infiltrates. Reevaluated today on 12/06/2018, patient remains as an overflow in the ICU. Clinically the patient is doing better, denies any cough no wheezing no shortness of breath. Denies any abdominal pain, no abdominal discomfort, no nausea no vomiting, does not have any diarrhea as a matter of fact she has not had a bowel movement over the last few days. But she is not in any distress, and her abdomen is soft. Her CBC is showing evidence of leukocytosis, patient remains on antibiotics, today I recommended pancultures. WBC count is 27.5 hemoglobin is 10.2. Electrolytes are normal renal profile is normal. Chest x- ray showed cardiomegaly, small bilateral effusions, and bibasilar atelectasis. Reevaluated today in the ICU on 12/07/2018, patient is an overflow in the ICU, doing well, slightly confused, denies any shortness of breath no cough no wheezing. Patient is requesting to be on her usual inhalers, and she is basically on all the bronchodilators given in different forms. No cough no wheezing no shortness of breath no chest pain. Intermittently, patient has been on BiPAP at night. Overall the patient has made a significant improvement over the last 10 days. Continues to have a bit of leukocytosis however the WBC count is better today. 24.9. Hemoglobin is 10.1 left lites are normal renal profile is normal. Objective - Vital Signs Vital signs: Vital Signs Temp 98.0 F 12/07/18 12:00 Pulse 86 12/07/18 12:10 Resp 19 12/07/18 12:00 BP 139/83 12/07/18 12:00 Pulse Ox 96 12/07/18 12:00 Intake & Output 12/06/18 12/07/18 12/07/18 18:59 06:59 18:59 Intake Total 410 490 490 Output Total 1650 1425 1600 Balance -1240 -935 -1110 Weight 118.7 kg Intake: IV 160 240 40 Sodium Chloride 0.9% 1, 160 240 40 000 ml @ 20 mls/hr IV . Q24H [facility] Rx#:[id number] Intake, IV Titration 100 Amount Cefepime 2 gm In Sodium 100 Chloride 0.9% 50 ml @ 100 mls/hr IVPB Q12HR [facility] Rx #:[id number] Oral 250 250 350 Output: Urine 1650 1425 1600 Other: Voiding Method Indwelling Catheter Indwelling Catheter Indwelling Catheter ABP, PAP, CO, CI - Last Documented Arterial Blood Pressure 117/67 - Exam Physical Exam: 73-year-old female in no distress. Intermittently confused On 3 L nasal cannula. Asymptomatic. Head: Atraumatic, normocephalic, HEENT:[Neck is supple.] [No neck masses.] [No thyromegaly.] [No JVD.] PERRLA, EOMI, no icterus. Chest: Diminished breath sounds at bases, no crackles, no rhonchi and no wheezes.. Cardiac Exam: [Normal S1 and S2, no S3 gallop, no murmur.] Abdomen: [Obese, Soft, nontender, no megaly, no rebound, no guarding, diminished bowel sounds. Extremities: [No clubbing, trace of bipedal edema, no cyanosis.] Neurological Exam: [No focal neurologic deficit.] Psychiatric: Normal mood, affect and mental status examination. Skin: No rashes. Lymphatics: No lymphadenopathy. - Labs CBC & Chem 7: 12/07/18 04:20 12/07/18 04:20 Labs: Abnormal Lab Results - Last 24 Hours (Table) 12/06/18 12/06/18 12/07/18 Range/Units 17:07 21:23 04:20 WBC (3.8-10.6) k/uL RBC (3.80-5.40) m/uL Hgb (11.4-16.0) gm/dL Hct (34.0-46.0) % Neutrophils # (1.3-7.7) k/uL Lymphocytes # (1.0-4.8) k/uL Sodium 134 L (137-145) mmol/L Chloride 88 L (98-107) mmol/L Carbon Dioxide 40 H (22-30) mmol/L BUN 33 H (7-17) mg/dL Glucose 195 H (74-99) mg/dL POC Glucose (mg/dL) 182 H 172 H (75-99) mg/dL Calcium 8.2 L (8.4-10.2) mg/dL Total Protein 5.6 L (6.3-8.2) g/dL Albumin 2.9 L (3.5-5.0) g/dL 12/07/18 12/07/18 12/07/18 Range/Units 04:20 07:00 11:53 WBC 24.9 H (3.8-10.6) k/uL RBC 3.66 L (3.80-5.40) m/uL Hgb 10.1 L (11.4-16.0) gm/dL Hct 32.3 L (34.0-46.0) % Neutrophils # 23.8 H (1.3-7.7) k/uL Lymphocytes # 0.4 L (1.0-4.8) k/uL Sodium (137-145) mmol/L Chloride (98-107) mmol/L Carbon Dioxide (22-30) mmol/L BUN (7-17) mg/dL Glucose (74-99) mg/dL POC Glucose (mg/dL) 206 H 243 H (75-99) mg/dL Calcium (8.4-10.2) mg/dL Total Protein (6.3-8.2) g/dL Albumin (3.5-5.0) g/dL Microbiology - Last 24 Hours (Table) 12/06/18 10:05 Urine Culture - Preliminary Urine,Catheterized Yeast species 12/06/18 09:18 Blood Culture - Preliminary Blood No Growth after 24 hours 12/06/18 09:15 Blood Culture - Preliminary Blood No Growth after 24 hours Assessment and Plan Assessment: Impression: 1 Acute hypoxic respiratory failure secondary to aspiration pneumonia and diastolic congestive heart failure, requiring intubation and mechanical ventilation. 2 acute sepsis secondary to pneumonia,septic shock requiring pressors and fluid boluses at one point. 8 third-degree AV block requiring transvenous pacemaker/temporary. 3 fluid overload and generalized anasarca, acute diastolic congestive heart failure 4 acute on chronic renal failure stage III 5 shock liver, improving 6 bacteremia/positive blood culture, however felt to be secondary to contamination 7 diastolic congestive heart failure hence more diuretics were added. 8 third-degree AV block requiring temporary transvenous pacemaker placement. 9 intermittent episodes of confusion, most likely related to metabolic encephalopathy. 10 leukocytosis, exact etiology is not clear, hence will order pancultures, continue antibiotics in the meantime, may have to consider removing the right IJ triple-lumen catheter. Clinically however the patient is not behaving like septic at this point. Recommendation: Continue present supportive care measures including antibiotics , diuretics, steroids, we will taper the steroids down further, blood cultures are negative so far., patient remains as an overflow, waiting for a bed on [facility], all her meds were reviewed, labs were all reviewed, chest x-ray was reviewed, patient continues to improve, consider discontinuing her right IJ central line in a.m., and antibiotics as per infectious disease on the case. Not quite ready for discharge planning today, we'll continue to follow. Patient continues to have multiple complex medical problems as noted above. But overall there has been significant improvement since admission. Time with Patient: Less than 30
[2018-12-07 17:14] LABS: Glucose,Whole Blood 139 mg/dL (75-99)
[2018-12-07] MEDS ORDERED: VANCOMYCIN IV PER PHARMACY 1 EACH MISC MISCELLANE PRN (17:34)
[2018-12-07] MEDS ORDERED: VANCOMYCIN 2,000 MG in SODIUM CHLORIDE 0.9% 500 ML 500 ML IVPB ONE (18:45)
[2018-12-07] MEDS: SYMBICORT 160-4.5 MCG INHALER INHALATION SCH (18:55)
[2018-12-07] MEDS: AZTREONAM 1 GM in SODIUM CHLORIDE 0.9% 50 ML IVPB SCH (19:23)
[2018-12-07 21:07] LABS: Glucose,Whole Blood 191 mg/dL (75-99)
--- NOTE | 2018-12-07 22:51 | PN ---
PROGRESS NOTE DATE OF SERVICE: 12/07/2018 REASON FOR FOLLOWUP: 1. Pneumonia. 2. Leukocytosis, possible UTI versus central line-related. INTERVAL HISTORY: The patient is currently afebrile. She is breathing comfortably. Denies having any chest pain or shortness of breath. Occasional cough. No abdominal pain. No nausea, vomiting or diarrhea. PHYSICAL EXAMINATION: Blood pressure is 139/83 with a pulse of 85, temperature 98.5, she is 93% on 3 L nasal cannula. GENERAL DESCRIPTION: An elderly female, lying in bed in no distress. RESPIRATORY SYSTEM: Unlabored breathing with decreased breath sounds at the bases. No wheeze. HEART: S1, S2. Regular rate and rhythm. LABS: White count down to 24,000 today. BUN of 33, creatinine 0.99. Urine showing yeast. DIAGNOSTIC IMPRESSION AND PLAN: 1. Patient with initial fever, concern for possible gram-negative pneumonia. Patient on cefepime. Cultures have been negative so far. Transition to oral antibiotics. 2. Patient does have persistently elevated white count, source possibly catheter- associated versus the right IJ which could not be discontinued as the patient is on peripheral IV. Vanco will be added while waiting for the culture to finalize. If there is no need for an IV, we will recommend discontinuing off the IJ and switch antibiotics to oral. Will discuss further with the admitting team. Continue supportive care. MMODL / IJN: [id number] /
[2018-12-08 01:55] LABS: Glucose,Whole Blood 167 mg/dL (75-99)
[2018-12-08 05:47] LABS: Glucose,Whole Blood 173 mg/dL (75-99)
[2018-12-08 06:43] LABS: Basophils % (A) 0 %; Eosinophils % (A) 0 %; HCT 32.2 % (34.0-46.0); HGB 9.9 gm/dL (11.4-16.0); Hypochromasia Slight; Lymphocytes # (A) 0.6 k/uL (1.0-4.8); Lymphocytes % (A) 3 %; MCH 27.4 pg (25.0-35.0); MCHC 30.8 g/dL (31.0-37.0); MCV 88.7 fL (80.0-100.0); Mean Platelet Volume 7.1; Monocytes # (A) 0.9 k/uL (0-1.0); Monocytes % (A) 4 %; Neutrophils # (A) 17.9 k/uL (1.3-7.7); Neutrophils % (A) 91 %; Platelet Count 375 k/uL (150-450); RBC 3.63 m/uL (3.80-5.40); RDW 14.2 % (11.5-15.5); WBC 19.6 k/uL (3.8-10.6)
[2018-12-08 06:55] LABS: Albumin 2.9 g/dL (3.5-5.0); Calcium 8.4 mg/dL (8.4-10.2); Potassium 3.8 mmol/L (3.5-5.1); Total Bilirubin 0.5 mg/dL (0.2-1.3); Total Protein 5.6 g/dL (6.3-8.2)
[2018-12-08] MEDS: INSULIN ASPART 100 UNIT/ML 1 ML 10 ML VIAL SQ SCH ×7 (06:56→21:03)
[2018-12-08] MEDS: SYMBICORT 160-4.5 MCG INHALER INHALATION SCH ×2 (07:12→19:47)
[2018-12-08] MEDS: ALBUTEROL NEBULIZED 2.5 MG/3 ML INHALATION SCH ×4 (07:12→19:47)
[2018-12-08] MEDS: FUROSEMIDE 10 MG/ML 4 ML VIAL IV SCH ×2 (09:30→21:04)
[2018-12-08] MEDS: FAMOTIDINE 20 MG/2 ML VIAL IV SCH (09:30)
[2018-12-08] MEDS: HEPARIN SODIUM,PORCINE 5,000 UNIT/ML 1 ML VIAL SQ SCH ×2 (09:30→21:04)
[2018-12-08] MEDS: FLUCONAZOLE 100 MG TAB PO SCH (09:31)
[2018-12-08] MEDS: DULoxetine HCL 30 MG CAPSULE.DR PO SCH (09:31)
[2018-12-08] MEDS: ERGOCALCIFEROL 50,000 UNIT CAP PO SCH (09:31)
[2018-12-08] MEDS: levETIRAcetam 500 MG TAB PO SCH ×2 (09:32→21:04)
[2018-12-08] MEDS: MONTELUKAST 10 MG TAB PO SCH (09:32)
[2018-12-08] MEDS: predniSONE 20 MG TAB PO SCH (09:32)
[2018-12-08] MEDS: buPROPion SR 100 MG TABLET.ER PO SCH (09:32)
[2018-12-08] MEDS: FOLIC ACID 1 MG TAB PO SCH (09:35)
[2018-12-08] MEDS: SODIUM CHLORIDE 0.9% 1,000 ML IV SCH (09:36)
[2018-12-08] MEDS: CEFEPIME 2 GM in SODIUM CHLORIDE 0.9% 50 ML IVPB SCH (11:00)
[2018-12-08] MEDS: ALPRAZolam 0.25 MG TAB PO PRN ×2 (11:00→21:04)
--- NOTE | 2018-12-08 11:19 | P.PN ---
Subjective Progress Note Date: 12/08/18 73-year-old female who was seen evaluated examined on medical floor, this patient admitted into the hospital earlier this morning with problems associated with nauseous feeling and nasopharyngeal swab for influenza A and B were both negative, her symptoms started a day before she has not been taking able to take anything by mouth she is not taking her home medication as well, patient has been having looser stool as well overall symptoms appeared to be like gastroenteritis however no bloody diarrhea has been noted, patient denies any emesis denies any abdominal pain and on specific questioning denies any chest pain or radiation of pain, she does have a history of COPD and chronic persistent asthma, patient also has a history of hypertension hypertensive cardiovascular disease and advanced steroid-dependent rheumatoid arthritis, she has not been formally evaluated for sleep disorder breathing and sleep apnea, on medical floor patient was found to be bradycardic which was a significant change compared to her admit vitals, patient was however hemodynamically stable but due to significant bradycardia transferred to the selective care/ICU if no bed is available consult with cardiology has been also initiated, they felt that patient to be monitored and observed dopamine/dopamine and check agents were not initiated as patient was hemodynamically stable and bradycardia thought to be related to exaggerated vagal response, review of the data also revealed that patient is hyponatremic, initial EKG revealed sinus tachycardia with left bundle branch block and currently developed high degree AV block, patient failed to capture external pacemaker eventually due to severe restlessness and significant bradycardia was intubated and cardiovascular services took her to the Lab at transvenous temporary pacemaker has been inserted through the groin, and A-line has been inserted by the anesthesia, patient only has a single lumen groin catheter through which transvenous pacemaker is present being infused with 10 mics of levo fed as well as dopamine to keep map around 65-70 patient is on full ventilator support initially patient was place on assist control rate of 20 tidal volume of 505 of PEEP 100% oxygen now rate is being cut down to 14 PEEP is 5 FiO2 Is Lowered down to 50%, 11/26/2018 patient seen eval reexamined during the rounds clinically patient remains sedated with propofol drip currently patient is on 20 mics able to come down however hemodynamic status remains marginal, patient require 100% pacing as without heart rate drops down to less than 30, patient is also on levo fed drip 35 mics, and dopamine drip 10 mics, currently maintenance IV fluids 50 mL an hour being given, patient has been found to be hypokalemic potassium has been replaced, chest x-ray revealed a possible developing left lower lobe infiltrate cannot be excluded along with small effusion, on assist control rate of 12 breathing 12 tidal volume of 500, with PEEP of 5, FiO2 is down to 40%, chest x-ray reviewed laboratory data reviewed, critical care time spent 40 minutes 11/27/2018, patient seen eval examined during the rounds clinically patient is slightly improving terms of hemodynamics, the heart block has improvement, heart rate spontaneous is in 60s to 70s, blood pressure map remains over 60-70, patient however remains on dopamine which has been titrated down to 2 mics, the levo fed has been lowered down to 6 mics as well, patient is 15 mics of propofol she is arousable does open eyes, she remains on full vent setting with assist control 12 breathing 12 tidal volume is 500, PEEP is 5, oxygen is down to 40%, chest x-ray laboratory data reviewed, blood cultures appears to be contamination as coag-negative staph has been noted, ID service has been consulted, care plan discussed with the staff at length, cardiovascular services recommendations reviewed, critical care time spent 35 minutes 11/28/2018, patient seen eval examined during rounds clinically is now off of vasopressors dopamine levo fed has been discontinued, patient has been on assist control mode switched over to CPAP 5 pressure support of 10, patient is monitor and observe on the pressure support and CPAP, spontaneous tidal volume at 300 range respiratory rate in the low 20s, saturation remains 90%, patient is still somnolent but arousable, will plan to have extended weaning for one hour and then will check arterial blood gas which was reviewed as well patient tolerated the CPAP pressure trial and very well is being extubated, otherwise patient remains afebrile respiratory secretions stable labs x-rays and radiographic studies reviewed, patient appears to have component of anasarca 40 mg of Lasix IVs does being given will put patient on daily IV furosemide as well , critical care time spent 35 minutes 11/29/2018, patient seen eval reexamined during the rounds she has been successfully weaned and active extubated she is on supplemental oxygen very weak though, patient is still have a temperature transvenous pacemaker, which is set at 40, patient is back to her sinus rhythm, patient does have a history of sleep disorder breathing and sleep apnea as per discussion with the daughter she does not use her CPAP machine very regularly, I have educated them extensively at, patient remains on broad-spectrum antibiotics labs reviewed medications reviewed radiographic studies reviewed as well, chest x-ray revealed a small pleural effusion with right basal infiltrate cardiomegaly stable triple-lumen catheter 12/01/2018. Patient remains in the intensive care unit. Patient currently on 4 L. temporary pacemaker has been removed per cardiology services. Heart rate has remained stable. At this time patient denies any chest pain or shortness breath. Patient denies nausea vomiting or diarrhea. Patient denies any urinary burning or frequency on 12/02/2018 patient remains in the intensive care unit. Patient is currently sleeping with BiPAP in place. Patient's heart rate has remained within normal limits. At this time patient denies chest pain or shortness of breath. Patient denies nausea vomiting or diarrhea. Patient denies any urinary burning or frequency. Per nursing staff patient did have a bout of confusion throughout night which is not the first occurrence On 12/03/2018 patient does appear more alert than yesterday. Patient does have increased upper respiratory wheezing. Chest x-ray ordered per critical care team. At this time patient denies chest pain or shortness breath. Patient denies nausea vomiting or diarrhea. Patient denies any urinary burning or frequency. On 12/04/2018 patient is awake and alert. Patient's expiratory wheezing does sound improved. At this time patient denies chest pain or shortness of breath. Patient denies nausea vomiting or diarrhea. Patient denies any urinary burning or frequency On 12/05/2018 patient is alert and awake eating breakfast in bed. Per nursing staff patient is a bit more confused today. CO2 is up to 40. Per nursing staff patient did not consistently wear BiPAP throughout night. At this time patient denies chest pain or shortness of breath. Patient denies nausea vomiting or diarrhea. Patient denies any urinary burning or frequency. On 12/06/2018 patient was seen and examined in ICU she required BiPAP throughout the night she is alert and oriented in no apparent distress currently she is maintained on nasal cannula she is still complaining of cough and shortness of breath she denies any chest pain or there is no fever or chills no nausea or vomiting no abdominal pain no diarrhea and no urinary symptoms. On 12/07/2018 patient is alert and oriented 3 in no apparent distress currently maintained on nasal cannula she was able to wear BiPAP throughout the night she states she feels better shortness of breath is improving there is occasional cough she denies any pain or discomfort there is no fever or chills no chest pain no nausea or vomiting no abdominal pain no diarrhea and no urinary symptoms On 12/08/2018 patient is alert and oriented 3. Patient currently resting comfortably cardiac care unit. At this time patient denies chest pain or shortness breath. Patient denies nausea vomiting or diarrhea. Patient denies any urinary burning or frequency Objective - Vital Signs Vital signs: Vital Signs Temp 97.8 F 12/08/18 08:00 Pulse 80 12/08/18 11:11 Resp 18 12/08/18 08:00 BP 141/65 12/08/18 08:00 Pulse Ox 98 12/08/18 08:00 Intake & Output 12/07/18 12/08/18 12/08/18 18:59 06:59 18:59 Intake Total 490 Output Total 1600 1200 Balance -1110 -1200 Intake: IV 40 Sodium Chloride 0.9% 1, 40 000 ml @ 20 mls/hr IV . Q24H [facility] Rx#:[id number] Intake, IV Titration 100 Amount Cefepime 2 gm In Sodium 100 Chloride 0.9% 50 ml @ 100 mls/hr IVPB Q12HR [facility] Rx #:[id number] Oral 350 Output: Urine 1600 1200 Other: Voiding Method Indwelling Catheter Indwelling Catheter Indwelling Catheter # Voids 1 ABP, PAP, CO, CI - Last Documented Arterial Blood Pressure 117/67 - Exam Head normocephalic Neck supple Lungs diminished bilaterally with expiratory wheezing Heart regular rate and rhythm S1-S2, no rub or gallop Abdomen is soft nontender nondistended positive bowel sounds no hepatosplenomegaly Extremities no edema - Labs CBC & Chem 7: 12/08/18 05:41 12/08/18 05:41 Labs: Abnormal Lab Results - Last 24 Hours (Table) 12/07/18 12/07/18 12/07/18 Range/Units 11:53 16:57 21:05 WBC (3.8-10.6) k/uL RBC (3.80-5.40) m/uL Hgb (11.4-16.0) gm/dL Hct (34.0-46.0) % MCHC (31.0-37.0) g/dL Neutrophils # (1.3-7.7) k/uL Lymphocytes # (1.0-4.8) k/uL Sodium (137-145) mmol/L Chloride (98-107) mmol/L Carbon Dioxide (22-30) mmol/L BUN (7-17) mg/dL Creatinine (0.52-1.04) mg/dL Glucose (74-99) mg/dL POC Glucose (mg/dL) 243 H 139 H 191 H (75-99) mg/dL Total Protein (6.3-8.2) g/dL Albumin (3.5-5.0) g/dL 12/08/18 12/08/18 12/08/18 Range/Units 01:53 05:41 05:41 WBC 19.6 H (3.8-10.6) k/uL RBC 3.63 L (3.80-5.40) m/uL Hgb 9.9 L (11.4-16.0) gm/dL Hct 32.2 L (34.0-46.0) % MCHC 30.8 L (31.0-37.0) g/dL Neutrophils # 17.9 H (1.3-7.7) k/uL Lymphocytes # 0.6 L (1.0-4.8) k/uL Sodium 134 L (137-145) mmol/L Chloride 88 L (98-107) mmol/L Carbon Dioxide 38 H (22-30) mmol/L BUN 38 H (7-17) mg/dL Creatinine 1.11 H (0.52-1.04) mg/dL Glucose 156 H (74-99) mg/dL POC Glucose (mg/dL) 167 H (75-99) mg/dL Total Protein 5.6 L (6.3-8.2) g/dL Albumin 2.9 L (3.5-5.0) g/dL 12/08/18 Range/Units 05:45 WBC (3.8-10.6) k/uL RBC (3.80-5.40) m/uL Hgb (11.4-16.0) gm/dL Hct (34.0-46.0) % MCHC (31.0-37.0) g/dL Neutrophils # (1.3-7.7) k/uL Lymphocytes # (1.0-4.8) k/uL Sodium (137-145) mmol/L Chloride (98-107) mmol/L Carbon Dioxide (22-30) mmol/L BUN (7-17) mg/dL Creatinine (0.52-1.04) mg/dL Glucose (74-99) mg/dL POC Glucose (mg/dL) 173 H (75-99) mg/dL Total Protein (6.3-8.2) g/dL Albumin (3.5-5.0) g/dL Microbiology - Last 24 Hours (Table) 12/06/18 10:05 Urine Culture - Preliminary Urine,Catheterized Yeast species 12/06/18 09:18 Blood Culture - Preliminary Blood No Growth after 24 hours 12/06/18 09:15 Blood Culture - Preliminary Blood No Growth after 24 hours Assessment and Plan Assessment: 1. Acute aspiration pneumonia, leading to acute hypoxic respiratory failure, requiring intubation and mechanical ventilation. . Patient also on Solu- Medrol 60 mg every 6 hours. Per pulmonary services Lasix has been increased to 40 twice a day. Repeat chest x-ray completed showing continued changes of mild- to-moderate CHF with pulmonary vascular congestion. Small to moderate pleural effusions with adjacent atelectasis and consolidation. Patient remains on IV Lasix. She has been switched to oral prednisone per pulmonary 2. Acute sepsis secondary to pneumonia. Patient remains off pressors. Lactic acid 5.3. Repeat 3.0 Blood culture currently growing Staphylococcus epidermidis. Dr. Robins has been consulted for infectious disease. remains on Maxipime and vancomycin. 3. Severe complete third-degree high-grade AV block. Patient did have TVP in place. TVP has been pulled per cardiology services. Per cardiology services possible placement of permanent pacemaker once pulmonary status improved. 4. Fluid overload and generalized anasarca. Maintained IV Lasix 5. Lactic acidosis secondary due to due to poor perfusion and cardiogenic shock 6. Hyponatremia. Improving to 134 7. Acute renal failure stage III. Creatinine 0.69 and bun 25 8. History of essential hypertension 9. History of osteoarthritis 10. History of anxiety and depression 11. Hyperglycemia due to steroids. Patient placed on sliding scale steroid coverage. Hemoglobin A1c 6.4 from 11/26/2018 Patient will likely need ECF placement upon discharge social work and physical therapy consulted DVT prophylaxis heparin. GI prophylaxis pepcid I performed an examination of the patient and discussed their management with the Nurse Practitioner. I have reviewed the Nurse Practitioner's notes and agree with the documented findings and plan of care
[2018-12-08 11:35] LABS: Glucose,Whole Blood 213 mg/dL (75-99)
--- NOTE | 2018-12-08 15:20 | P.PN ---
Subjective Progress Note Date: 12/08/18 Principal diagnosis: Bilateral aspiration pneumonia, and diastolic congestive heart failure This is a 73-year-old female I'm seeing today on 12/01/2018, patient was admitted almost a week ago with complete heart block and aspiration pneumonia some component of diastolic congestive heart failure/fluid overload. Patient was followed all along by Dr. Diaz, and she was seen yesterday by Dr. Sánchez who was covering Dr. Diaz while the patient is in the ICU. Patient had aspiration pneumonia, sepsis, complete heart block, fluid overload, acute respiratory failure with hypoxemia, lactic acidosis, acute renal failure, shock liver, and she was eventually extubated the day before yesterday. Remains in the ICU, she is on nasal cannula, and she has BiPAP at bedside to be used during sleep time. Patient is feeling good, she has cough and wheezing, but she denies being short of breath. She is extremely pleasant. Again she is basically asymptomatic. Chest x-ray was reviewed and it showed congestive heart failure changes with trace of right and [id number] left pleural effusion with pulmonary vascular congestion again it is mostly consistent with diastolic congestive heart failure. Labs were reviewed, she had a relatively normal CBC hemoglobin is 9.5 left lites are normal bicarb is 35 BUN is 25 creatinine 0.69. All meds were reviewed remains on bronchodilators, antibiotics, and I went ahead and increased her Lasix to 40 mg IV push every 12 hours. Reevaluated today on 12/02/2018, patient remains in the ICU, she had some episodes of confusion last night, didn't require placement on BiPAP. However patient seems to be alert oriented 3 this morning, and she does not seem to be in any form of distress. Presently on BiPAP, she is on IPAP of 14 and EPAP of 6 , and her FiO2 is being titrated to keep O2 saturation above 90%. Her confusion seems to have resolved, but apparently she has been noted to have confusion every night. Labs were reviewed, she had a relatively normal electrolytes, normal renal profile, and normal CBC. Chest x-ray continues to show some evidence of congestive heart failure with trace and [id number] left pleural effusion and pulmonary congestion. Patient today denies any headache no blurred vision no dizziness, no cough no wheezing, no nausea no vomiting no abdominal pain. Patient was reevaluated in the ICU today on 12/03/2018, remains on nasal cannula, doing fairly well, she does appear a bit more alert compared to yesterday. Not confused, patient is breathing easier, and she is on nasal cannula. Chest x- ray which I ordered today showed mild congestive heart failure changes and interstitial edema, significantly improved over the last few days. Labs were all reviewed, she has a relatively normal electrolytes, however her bicarb is 37 BUN is 33 creatinine 0.84. WBC count is 9.7 hemoglobin is 9.5. Medications were all reviewed, remains on bronchodilators, antibiotics, diuretics, she is also on GI and DVT prophylaxis. Patient was reevaluated in the ICU today on 12/04/2018, sitting in bed, comfortable, in no distress, denies any shortness of breath or cough or wheezing , denies any chest pain, however she is complaining of vague abdominal discomfort. Her abdomen however is soft. Chest x-ray was not done today, but the chest x-ray from yesterday showed mild congestive heart failure and pulmonary vascular congestion. [id number]-[id number] pleural effusions. With adjacent atelectasis. All labs from today including CBC and basic metabolic profile were reviewed, seem to be relatively normal. All meds she is presently on were reviewed. She remains on Lasix at 40 mg IV push every 12 hours. She remains on methylprednisolone which I will cut down further, and she remains on antibiotics./Cefepime. Patient was reevaluated today on 12/05/2018, remains as an overflow in the intensive care unit. Doing well, she continues to have intermittent episodes of confusion but today she seems to be very alert oriented, knew exactly what she was, she knew the year, and she knew the month. Patient is feeling better overall, her GI symptoms have resolved, denies any cough no wheezing no shortness of breath, she is presently on 3 L nasal cannula. Her CBC showed leukocytosis with WBC count of 20.4. Electrolytes are normal renal profile is normal. Bicarb is 40. No chest x-ray was done. Her chest x-ray yesterday and the day before was showing steady improvement in her congestive heart failure and infiltrates. Reevaluated today on 12/06/2018, patient remains as an overflow in the ICU. Clinically the patient is doing better, denies any cough no wheezing no shortness of breath. Denies any abdominal pain, no abdominal discomfort, no nausea no vomiting, does not have any diarrhea as a matter of fact she has not had a bowel movement over the last few days. But she is not in any distress, and her abdomen is soft. Her CBC is showing evidence of leukocytosis, patient remains on antibiotics, today I recommended pancultures. WBC count is 27.5 hemoglobin is 10.2. Electrolytes are normal renal profile is normal. Chest x- ray showed cardiomegaly, small bilateral effusions, and bibasilar atelectasis. Reevaluated today in the ICU on 12/07/2018, patient is an overflow in the ICU, doing well, slightly confused, denies any shortness of breath no cough no wheezing. Patient is requesting to be on her usual inhalers, and she is basically on all the bronchodilators given in different forms. No cough no wheezing no shortness of breath no chest pain. Intermittently, patient has been on BiPAP at night. Overall the patient has made a significant improvement over the last 10 days. Continues to have a bit of leukocytosis however the WBC count is better today. 24.9. Hemoglobin is 10.1 left lites are normal renal profile is normal. On 12/08/2018 patient seen again in follow-up on selective care unit. She is awake and alert, in no acute distress, on 3 L per nasal cannula pulse ox is 96% , hemodynamically stable, no fever or chills, lung sounds good air entry bilaterally, only a few scattered crackles at the right base, otherwise relatively clear. Room air pulse ox was 82%. ID service is following for antibiotic management, blood culture from 11/25/2018 was positive for Staphylococcus epidermidis, follow-up blood cultures have been negative, sputum culture and urine culture showed no growth. Urine culture showed Siena albicans, patient is on oral Diflucan and vancomycin. Last chest x-ray was done on 12/07/2018, and showed small bilateral pleural effusions, and bibasilar airspace disease some platelike atelectasis in the right midlung. No specific complaints, cough or wheezing, no nausea no vomiting, no abdominal pain Objective - Vital Signs Vital signs: Vital Signs Temp 97.6 F 12/08/18 12:00 Pulse 78 12/08/18 12:00 Resp 18 12/08/18 12:00 BP 137/72 12/08/18 12:00 Pulse Ox 96 12/08/18 12:00 Intake & Output 12/07/18 12/08/18 12/08/18 18:59 06:59 18:59 Intake Total 490 Output Total 1600 1200 1700 Balance -1110 -1200 -1700 Intake: IV 40 Sodium Chloride 0.9% 1, 40 000 ml @ 20 mls/hr IV . Q24H [facility] Rx#:[id number] Intake, IV Titration 100 Amount Cefepime 2 gm In Sodium 100 Chloride 0.9% 50 ml @ 100 mls/hr IVPB Q12HR [facility] Rx #:[id number] Oral 350 Output: Urine 1600 1200 1700 Other: Voiding Method Indwelling Catheter Indwelling Catheter Indwelling Catheter # Voids 1 ABP, PAP, CO, CI - Last Documented Arterial Blood Pressure 117/67 - Exam GENERAL EXAM: Alert, pleasant, 73-year-old obese white female 2 L per nasal cannula comfortable in no apparent distress. HEAD: Normocephalic/atraumatic. EYES: Normal reaction of pupils, equal size. Conjunctiva pink, sclera white. NOSE: Clear with pink turbinates. THROAT: No erythema or exudates. NECK: No masses, no JVD, no thyroid enlargement, no adenopathy. Right IJ triple -lumen catheter CHEST: No chest wall deformity. Symmetrical expansion. LUNGS: Equal air entry with a few scattered crackles at the right base, no wheezes no rhonchi. CVS: Regular rate and rhythm, normal S1 and S2, no gallops, no murmurs, no rubs ABDOMEN: Soft, nontender. No hepatosplenomegaly, normal bowel sounds, no guarding or rigidity. EXTREMITIES: No clubbing, no edema, no cyanosis, 2+ pulses and upper and lower extremities. MUSCULOSKELETAL: Muscle strength and tone normal. SPINE: No scoliosis or deformity SKIN: No rashes CENTRAL NERVOUS SYSTEM: Alert and oriented -3. No focal deficits, tone is normal in all 4 extremities. PSYCHIATRIC: Alert and oriented -3. Appropriate affect. Intact judgment and insight. - Labs CBC & Chem 7: 12/08/18 05:41 12/08/18 05:41 Labs: Abnormal Lab Results - Last 24 Hours (Table) 12/07/18 12/07/18 12/08/18 Range/Units 16:57 21:05 01:53 WBC (3.8-10.6) k/uL RBC (3.80-5.40) m/uL Hgb (11.4-16.0) gm/dL Hct (34.0-46.0) % MCHC (31.0-37.0) g/dL Neutrophils # (1.3-7.7) k/uL Lymphocytes # (1.0-4.8) k/uL Sodium (137-145) mmol/L Chloride (98-107) mmol/L Carbon Dioxide (22-30) mmol/L BUN (7-17) mg/dL Creatinine (0.52-1.04) mg/dL Glucose (74-99) mg/dL POC Glucose (mg/dL) 139 H 191 H 167 H (75-99) mg/dL Total Protein (6.3-8.2) g/dL Albumin (3.5-5.0) g/dL 12/08/18 12/08/18 12/08/18 Range/Units 05:41 05:41 05:45 WBC 19.6 H (3.8-10.6) k/uL RBC 3.63 L (3.80-5.40) m/uL Hgb 9.9 L (11.4-16.0) gm/dL Hct 32.2 L (34.0-46.0) % MCHC 30.8 L (31.0-37.0) g/dL Neutrophils # 17.9 H (1.3-7.7) k/uL Lymphocytes # 0.6 L (1.0-4.8) k/uL Sodium 134 L (137-145) mmol/L Chloride 88 L (98-107) mmol/L Carbon Dioxide 38 H (22-30) mmol/L BUN 38 H (7-17) mg/dL Creatinine 1.11 H (0.52-1.04) mg/dL Glucose 156 H (74-99) mg/dL POC Glucose (mg/dL) 173 H (75-99) mg/dL Total Protein 5.6 L (6.3-8.2) g/dL Albumin 2.9 L (3.5-5.0) g/dL 12/08/18 Range/Units 11:31 WBC (3.8-10.6) k/uL RBC (3.80-5.40) m/uL Hgb (11.4-16.0) gm/dL Hct (34.0-46.0) % MCHC (31.0-37.0) g/dL Neutrophils # (1.3-7.7) k/uL Lymphocytes # (1.0-4.8) k/uL Sodium (137-145) mmol/L Chloride (98-107) mmol/L Carbon Dioxide (22-30) mmol/L BUN (7-17) mg/dL Creatinine (0.52-1.04) mg/dL Glucose (74-99) mg/dL POC Glucose (mg/dL) 213 H (75-99) mg/dL Total Protein (6.3-8.2) g/dL Albumin (3.5-5.0) g/dL Microbiology - Last 24 Hours (Table) 12/06/18 10:05 Urine Culture - Final Urine,Catheterized Siena albicans 12/06/18 09:18 Blood Culture - Preliminary Blood No Growth after 48 hours 12/06/18 09:15 Blood Culture - Preliminary Blood No Growth after 48 hours Assessment and Plan Plan: 1 Acute hypoxic respiratory failure secondary to aspiration pneumonia and diastolic congestive heart failure, requiring intubation and mechanical ventilation. 2 acute sepsis secondary to pneumonia,septic shock requiring pressors and fluid boluses at one point. 8 third-degree AV block requiring transvenous pacemaker/temporary. 3 fluid overload and generalized anasarca, acute diastolic congestive heart failure 4 acute on chronic renal failure stage III 5 shock liver, improving 6 bacteremia/positive blood culture, however felt to be secondary to contamination 7 diastolic congestive heart failure hence more diuretics were added. 8 third-degree AV block requiring temporary transvenous pacemaker placement. 9 intermittent episodes of confusion, most likely related to metabolic encephalopathy. 10 leukocytosis, exact etiology is not clear, hence will order pancultures, continue antibiotics in the meantime, may have to consider removing the right IJ triple-lumen catheter. Clinically however the patient is not behaving like septic at this point. Plan: Antibiotics per ID service recommendations, removed the right IJ triple-lumen catheter. No fever or chills, follow up blood cultures are negative. Leukocytosis is improving. She will likely need ECF placement, in view of severe generalized weakness. Continue IV diuretics. Repeat chest x-ray in the morning, we'll continue to follow I performed a history & physical examination of the patient and discussed their management with my nurse practitioner, Maggie Morin. I reviewed the nurse practitioner's note and agree with the documented findings and plan of care. Lung sounds are positive for breast sounds, and a few scattered rales over right lower base. The findings and the impression was discussed with the patient. I attest to the documentation by the nurse practitioner. Time with Patient: Less than 30
[2018-12-08 16:37] LABS: Glucose,Whole Blood 186 mg/dL (75-99)
[2018-12-08] MEDS: VANCOMYCIN 2,000 MG in SODIUM CHLORIDE 0.9% 500 ML 500 ML IVPB SCH (18:00)
[2018-12-08 21:01] LABS: Glucose,Whole Blood 163 mg/dL (75-99)
[2018-12-08] MEDS: ACETAMINOPHEN TAB 500 MG TAB PO PRN (21:03)
--- NOTE | 2018-12-08 22:47 | PN ---
PROGRESS NOTE DATE OF SERVICE: 12/08/2018. REASON FOR FOLLOWUP: 1. Gram-negative pneumonia, adequately treated. 2. Leukocytosis. 3. UTI. INTERVAL HISTORY: The patient is currently afebrile. The patient has been breathing comfortably. Denies having any chest pain or shortness of breath. No abdominal pain or any diarrhea. PHYSICAL EXAMINATION: Blood pressure is 137/78, pulse of 79, temperature 97.9. She is 94% on 3 L nasal cannula. GENERAL DESCRIPTION: An elderly female up in the chair in no distress. RESPIRATORY SYSTEM: Unlabored breathing with decreased breath sounds in the bases. No wheeze. HEART: S1, S2. Regular rate and rhythm. ABDOMEN: Soft, no tenderness. LABS: Hemoglobin 9.1, white count 19.4, BUN 38, creatinine is 1.11. Urine is Siena albicans. Blood culture has been negative. DIAGNOSTIC IMPRESSION/PLAN: 1. Patient with gram-negative pneumonia which has been adequately treated. 2. Patient with elevated white count, concern for possible urinary tract infection. The central line which has been discontinued. If the blood culture remains negative and white count continues to improve, discontinue the vancomycin and the patient will finish therapy with short course of oral Diflucan. Continue supportive care. There is no need for line placement at this point as the patient is currently using peripheral IV. MMODL / IJN: [id number] /
[2018-12-09 05:52] LABS: Glucose,Whole Blood 135 mg/dL (75-99)
[2018-12-09] MEDS: INSULIN ASPART 100 UNIT/ML 1 ML 10 ML VIAL SQ SCH ×7 (05:54→20:41)
[2018-12-09] MEDS: ACETAMINOPHEN TAB 500 MG TAB PO PRN (05:58)
[2018-12-09] MEDS: ALPRAZolam 0.25 MG TAB PO PRN ×2 (05:58→20:42)
[2018-12-09 07:49] LABS: Albumin 2.9 g/dL (3.5-5.0); Calcium 8.6 mg/dL (8.4-10.2); Potassium 3.7 mmol/L (3.5-5.1); Total Bilirubin 0.5 mg/dL (0.2-1.3); Total Protein 5.6 g/dL (6.3-8.2)
[2018-12-09 08:09] LABS: Basophils % (A) 0 %; Eosinophils # (A) 0.2 k/uL (0-0.7); Eosinophils % (A) 1 %; HCT 32.5 % (34.0-46.0); HGB 10.3 gm/dL (11.4-16.0); Lymphocytes # (A) 0.7 k/uL (1.0-4.8); Lymphocytes % (A) 5 %; MCH 27.9 pg (25.0-35.0); MCHC 31.7 g/dL (31.0-37.0); Mean Platelet Volume 7.6; Monocytes % (A) 6 %; Neutrophils # (A) 13.7 k/uL (1.3-7.7); Neutrophils % (A) 88 %; Platelet Count 322 k/uL (150-450); RBC 3.69 m/uL (3.80-5.40); RDW 14.4 % (11.5-15.5); WBC 15.7 k/uL (3.8-10.6)
[2018-12-09] MEDS: SYMBICORT 160-4.5 MCG INHALER INHALATION SCH ×2 (08:31→20:32)
[2018-12-09] MEDS: ALBUTEROL NEBULIZED 2.5 MG/3 ML INHALATION SCH ×4 (08:32→20:32)
[2018-12-09] MEDS: FOLIC ACID 1 MG TAB PO SCH (09:28)
[2018-12-09] MEDS: levETIRAcetam 500 MG TAB PO SCH ×2 (09:28→20:31)
[2018-12-09] MEDS: DULoxetine HCL 30 MG CAPSULE.DR PO SCH (09:28)
[2018-12-09] MEDS: FLUCONAZOLE 100 MG TAB PO SCH (09:28)
[2018-12-09] MEDS: SENNOSIDES 8.6 MG TAB PO PRN (09:31)
[2018-12-09] MEDS: buPROPion SR 100 MG TABLET.ER PO SCH (09:31)
[2018-12-09] MEDS: FAMOTIDINE 20 MG TAB PO SCH (09:32)
[2018-12-09] MEDS: predniSONE 20 MG TAB PO SCH (09:32)
[2018-12-09] MEDS: MONTELUKAST 10 MG TAB PO SCH (09:33)
[2018-12-09] MEDS: HEPARIN SODIUM,PORCINE 5,000 UNIT/ML 1 ML VIAL SQ SCH ×2 (09:34→20:32)
[2018-12-09] MEDS: FUROSEMIDE 10 MG/ML 4 ML VIAL IV SCH ×2 (09:34→20:34)
--- NOTE | 2018-12-09 09:44 | XR ---
EXAMINATION TYPE: XR chest 1V DATE OF EXAM: 12/09/2018 COMPARISON: 12/07/2018 HISTORY: 73 year-old female shortness of breath TECHNIQUE: Single frontal view of the chest is obtained. FINDINGS: Low lung volumes with crowded vascular markings. There is underlying pleural effusions obscuring the heart margins. Interstitial prominence in the upper lungs and fluid thickening the minor fissure. IMPRESSION: 1. Low lung volumes with cardiomegaly and interstitial changes. Correlate for continued mild CHF. 2. Continued bilateral pleural effusions which may be small to moderate in size with adjacent atelect asis and/or consolidation.
[2018-12-09] MEDS: SODIUM CHLORIDE 0.9% 1,000 ML IV SCH (09:51)
[2018-12-09 11:51] LABS: Glucose,Whole Blood 188 mg/dL (75-99)
--- NOTE | 2018-12-09 15:36 | P.PN ---
Subjective Progress Note Date: 12/09/18 73-year-old female who was seen evaluated examined on medical floor, this patient admitted into the hospital earlier this morning with problems associated with nauseous feeling and nasopharyngeal swab for influenza A and B were both negative, her symptoms started a day before she has not been taking able to take anything by mouth she is not taking her home medication as well, patient has been having looser stool as well overall symptoms appeared to be like gastroenteritis however no bloody diarrhea has been noted, patient denies any emesis denies any abdominal pain and on specific questioning denies any chest pain or radiation of pain, she does have a history of COPD and chronic persistent asthma, patient also has a history of hypertension hypertensive cardiovascular disease and advanced steroid-dependent rheumatoid arthritis, she has not been formally evaluated for sleep disorder breathing and sleep apnea, on medical floor patient was found to be bradycardic which was a significant change compared to her admit vitals, patient was however hemodynamically stable but due to significant bradycardia transferred to the selective care/ICU if no bed is available consult with cardiology has been also initiated, they felt that patient to be monitored and observed dopamine/dopamine and check agents were not initiated as patient was hemodynamically stable and bradycardia thought to be related to exaggerated vagal response, review of the data also revealed that patient is hyponatremic, initial EKG revealed sinus tachycardia with left bundle branch block and currently developed high degree AV block, patient failed to capture external pacemaker eventually due to severe restlessness and significant bradycardia was intubated and cardiovascular services took her to the Lab at transvenous temporary pacemaker has been inserted through the groin, and A-line has been inserted by the anesthesia, patient only has a single lumen groin catheter through which transvenous pacemaker is present being infused with 10 mics of levo fed as well as dopamine to keep map around 65-70 patient is on full ventilator support initially patient was place on assist control rate of 20 tidal volume of 505 of PEEP 100% oxygen now rate is being cut down to 14 PEEP is 5 FiO2 Is Lowered down to 50%, 11/26/2018 patient seen eval reexamined during the rounds clinically patient remains sedated with propofol drip currently patient is on 20 mics able to come down however hemodynamic status remains marginal, patient require 100% pacing as without heart rate drops down to less than 30, patient is also on levo fed drip 35 mics, and dopamine drip 10 mics, currently maintenance IV fluids 50 mL an hour being given, patient has been found to be hypokalemic potassium has been replaced, chest x-ray revealed a possible developing left lower lobe infiltrate cannot be excluded along with small effusion, on assist control rate of 12 breathing 12 tidal volume of 500, with PEEP of 5, FiO2 is down to 40%, chest x-ray reviewed laboratory data reviewed, critical care time spent 40 minutes 11/27/2018, patient seen eval examined during the rounds clinically patient is slightly improving terms of hemodynamics, the heart block has improvement, heart rate spontaneous is in 60s to 70s, blood pressure map remains over 60-70, patient however remains on dopamine which has been titrated down to 2 mics, the levo fed has been lowered down to 6 mics as well, patient is 15 mics of propofol she is arousable does open eyes, she remains on full vent setting with assist control 12 breathing 12 tidal volume is 500, PEEP is 5, oxygen is down to 40%, chest x-ray laboratory data reviewed, blood cultures appears to be contamination as coag-negative staph has been noted, ID service has been consulted, care plan discussed with the staff at length, cardiovascular services recommendations reviewed, critical care time spent 35 minutes 11/28/2018, patient seen eval examined during rounds clinically is now off of vasopressors dopamine levo fed has been discontinued, patient has been on assist control mode switched over to CPAP 5 pressure support of 10, patient is monitor and observe on the pressure support and CPAP, spontaneous tidal volume at 300 range respiratory rate in the low 20s, saturation remains 90%, patient is still somnolent but arousable, will plan to have extended weaning for one hour and then will check arterial blood gas which was reviewed as well patient tolerated the CPAP pressure trial and very well is being extubated, otherwise patient remains afebrile respiratory secretions stable labs x-rays and radiographic studies reviewed, patient appears to have component of anasarca 40 mg of Lasix IVs does being given will put patient on daily IV furosemide as well , critical care time spent 35 minutes 11/29/2018, patient seen eval reexamined during the rounds she has been successfully weaned and active extubated she is on supplemental oxygen very weak though, patient is still have a temperature transvenous pacemaker, which is set at 40, patient is back to her sinus rhythm, patient does have a history of sleep disorder breathing and sleep apnea as per discussion with the daughter she does not use her CPAP machine very regularly, I have educated them extensively at, patient remains on broad-spectrum antibiotics labs reviewed medications reviewed radiographic studies reviewed as well, chest x-ray revealed a small pleural effusion with right basal infiltrate cardiomegaly stable triple-lumen catheter 12/01/2018. Patient remains in the intensive care unit. Patient currently on 4 L. temporary pacemaker has been removed per cardiology services. Heart rate has remained stable. At this time patient denies any chest pain or shortness breath. Patient denies nausea vomiting or diarrhea. Patient denies any urinary burning or frequency on 12/02/2018 patient remains in the intensive care unit. Patient is currently sleeping with BiPAP in place. Patient's heart rate has remained within normal limits. At this time patient denies chest pain or shortness of breath. Patient denies nausea vomiting or diarrhea. Patient denies any urinary burning or frequency. Per nursing staff patient did have a bout of confusion throughout night which is not the first occurrence On 12/03/2018 patient does appear more alert than yesterday. Patient does have increased upper respiratory wheezing. Chest x-ray ordered per critical care team. At this time patient denies chest pain or shortness breath. Patient denies nausea vomiting or diarrhea. Patient denies any urinary burning or frequency. On 12/04/2018 patient is awake and alert. Patient's expiratory wheezing does sound improved. At this time patient denies chest pain or shortness of breath. Patient denies nausea vomiting or diarrhea. Patient denies any urinary burning or frequency On 12/05/2018 patient is alert and awake eating breakfast in bed. Per nursing staff patient is a bit more confused today. CO2 is up to 40. Per nursing staff patient did not consistently wear BiPAP throughout night. At this time patient denies chest pain or shortness of breath. Patient denies nausea vomiting or diarrhea. Patient denies any urinary burning or frequency. On 12/06/2018 patient was seen and examined in ICU she required BiPAP throughout the night she is alert and oriented in no apparent distress currently she is maintained on nasal cannula she is still complaining of cough and shortness of breath she denies any chest pain or there is no fever or chills no nausea or vomiting no abdominal pain no diarrhea and no urinary symptoms. On 12/07/2018 patient is alert and oriented 3 in no apparent distress currently maintained on nasal cannula she was able to wear BiPAP throughout the night she states she feels better shortness of breath is improving there is occasional cough she denies any pain or discomfort there is no fever or chills no chest pain no nausea or vomiting no abdominal pain no diarrhea and no urinary symptoms On 12/08/2018 patient is alert and oriented 3. Patient currently resting comfortably cardiac care unit. At this time patient denies chest pain or shortness breath. Patient denies nausea vomiting or diarrhea. Patient denies any urinary burning or frequency on 12/09/2018 patient has a bit more confused today. CO2 is elevated at 41. Pulmonary services are following. At this time patient denies chest pain or shortness of breath. Patient denies nausea vomiting or diarrhea. Patient denies any urinary burning or frequency Objective - Vital Signs Vital signs: Vital Signs Temp 97.9 F 12/09/18 12:00 Pulse 80 12/09/18 12:31 Resp 16 12/09/18 12:00 BP 148/67 12/09/18 12:00 Pulse Ox 94 L 12/09/18 12:00 Intake & Output 12/08/18 12/09/18 12/09/18 18:59 06:59 18:59 Output Total 1700 400 650 Balance -1700 -400 -650 Output: Urine 1700 400 650 Other: Voiding Method Bedside Commode Bedside Commode Bedside Commode # Voids 0 1 ABP, PAP, CO, CI - Last Documented Arterial Blood Pressure 117/67 - Exam Head normocephalic Neck supple Lungs diminished bilaterally with expiratory wheezing Heart regular rate and rhythm S1-S2, no rub or gallop Abdomen is soft nontender nondistended positive bowel sounds no hepatosplenomegaly Extremities no edema - Labs CBC & Chem 7: 12/09/18 07:00 12/09/18 06:59 Labs: Abnormal Lab Results - Last 24 Hours (Table) 12/08/18 12/08/18 12/09/18 Range/Units 16:18 20:59 05:44 WBC (3.8-10.6) k/uL RBC (3.80-5.40) m/uL Hgb (11.4-16.0) gm/dL Hct (34.0-46.0) % Neutrophils # (1.3-7.7) k/uL Lymphocytes # (1.0-4.8) k/uL Sodium (137-145) mmol/L Chloride (98-107) mmol/L Carbon Dioxide (22-30) mmol/L BUN (7-17) mg/dL Creatinine (0.52-1.04) mg/dL Glucose (74-99) mg/dL POC Glucose (mg/dL) 186 H 163 H 135 H (75-99) mg/dL Total Protein (6.3-8.2) g/dL Albumin (3.5-5.0) g/dL 12/09/18 12/09/18 12/09/18 Range/Units 06:59 07:00 11:38 WBC 15.7 H (3.8-10.6) k/uL RBC 3.69 L (3.80-5.40) m/uL Hgb 10.3 L (11.4-16.0) gm/dL Hct 32.5 L (34.0-46.0) % Neutrophils # 13.7 H (1.3-7.7) k/uL Lymphocytes # 0.7 L (1.0-4.8) k/uL Sodium 136 L (137-145) mmol/L Chloride 89 L (98-107) mmol/L Carbon Dioxide 41 H* (22-30) mmol/L BUN 38 H (7-17) mg/dL Creatinine 1.16 H (0.52-1.04) mg/dL Glucose 127 H (74-99) mg/dL POC Glucose (mg/dL) 188 H (75-99) mg/dL Total Protein 5.6 L (6.3-8.2) g/dL Albumin 2.9 L (3.5-5.0) g/dL Microbiology - Last 24 Hours (Table) 12/06/18 09:15 Blood Culture - Preliminary Blood No Growth after 72 hours 12/06/18 09:18 Blood Culture - Preliminary Blood No Growth after 72 hours 12/06/18 10:05 Urine Culture - Final Urine,Catheterized Siena albicans Assessment and Plan Assessment: 1. Acute aspiration pneumonia, leading to acute hypoxic respiratory failure, requiring intubation and mechanical ventilation. . Patient also on Solu- Medrol 60 mg every 6 hours. Per pulmonary services Lasix has been increased to 40 twice a day. Repeat chest x-ray completed showing continued changes of mild- to-moderate CHF with pulmonary vascular congestion. Small to moderate pleural effusions with adjacent atelectasis and consolidation. Patient remains on IV Lasix. She has been switched to oral prednisone per pulmonary. 2. Acute sepsis secondary to pneumonia. Patient remains off pressors. Lactic acid 5.3. Repeat 3.0 Blood culture currently growing Staphylococcus epidermidis. Dr. Robins has been consulted for infectious disease. remains on vancomycin. per infectious disease there is no need for line placement at this point for antibiotics 3. Severe complete third-degree high-grade AV block. Patient did have TVP in place. TVP has been pulled per cardiology services. discussed case with cardiology [employer] DIRECT[employer] Prerna machado. No plans at this time for patient to Permanent pacemaker placed. Patient has been cleared from cardiology services 4. Fluid overload and generalized anasarca. Maintained IV Lasix 5. Lactic acidosis secondary due to due to poor perfusion and cardiogenic shock 6. Hyponatremia. Improving to 134 7. Acute renal failure stage III. creatinine 1.16 and bun 38 8. History of essential hypertension 9. History of osteoarthritis 10. History of anxiety and depression 11. Hyperglycemia due to steroids. Patient placed on sliding scale steroid coverage. Hemoglobin A1c 6.4 from 11/26/2018 Patient will likely need ECF placement upon discharge social work and physical therapy consulted DVT prophylaxis heparin. GI prophylaxis pepcid I performed an examination of the patient and discussed their management with the Nurse Practitioner. I have reviewed the Nurse Practitioner's notes and agree with the documented findings and plan of care
--- NOTE | 2018-12-09 16:55 | P.PN ---
Subjective Progress Note Date: 12/09/18 Principal diagnosis: Bilateral aspiration pneumonia, diastolic congestive heart failure This is a 73-year-old female I'm seeing today on 12/01/2018, patient was admitted almost a week ago with complete heart block and aspiration pneumonia some component of diastolic congestive heart failure/fluid overload. Patient was followed all along by Dr. Diaz, and she was seen yesterday by Dr. Sánchez who was covering Dr. Diaz while the patient is in the ICU. Patient had aspiration pneumonia, sepsis, complete heart block, fluid overload, acute respiratory failure with hypoxemia, lactic acidosis, acute renal failure, shock liver, and she was eventually extubated the day before yesterday. Remains in the ICU, she is on nasal cannula, and she has BiPAP at bedside to be used during sleep time. Patient is feeling good, she has cough and wheezing, but she denies being short of breath. She is extremely pleasant. Again she is basically asymptomatic. Chest x-ray was reviewed and it showed congestive heart failure changes with trace of right and [id number] left pleural effusion with pulmonary vascular congestion again it is mostly consistent with diastolic congestive heart failure. Labs were reviewed, she had a relatively normal CBC hemoglobin is 9.5 left lites are normal bicarb is 35 BUN is 25 creatinine 0.69. All meds were reviewed remains on bronchodilators, antibiotics, and I went ahead and increased her Lasix to 40 mg IV push every 12 hours. Reevaluated today on 12/02/2018, patient remains in the ICU, she had some episodes of confusion last night, didn't require placement on BiPAP. However patient seems to be alert oriented 3 this morning, and she does not seem to be in any form of distress. Presently on BiPAP, she is on IPAP of 14 and EPAP of 6 , and her FiO2 is being titrated to keep O2 saturation above 90%. Her confusion seems to have resolved, but apparently she has been noted to have confusion every night. Labs were reviewed, she had a relatively normal electrolytes, normal renal profile, and normal CBC. Chest x-ray continues to show some evidence of congestive heart failure with trace and [id number] left pleural effusion and pulmonary congestion. Patient today denies any headache no blurred vision no dizziness, no cough no wheezing, no nausea no vomiting no abdominal pain. Patient was reevaluated in the ICU today on 12/03/2018, remains on nasal cannula, doing fairly well, she does appear a bit more alert compared to yesterday. Not confused, patient is breathing easier, and she is on nasal cannula. Chest x- ray which I ordered today showed mild congestive heart failure changes and interstitial edema, significantly improved over the last few days. Labs were all reviewed, she has a relatively normal electrolytes, however her bicarb is 37 BUN is 33 creatinine 0.84. WBC count is 9.7 hemoglobin is 9.5. Medications were all reviewed, remains on bronchodilators, antibiotics, diuretics, she is also on GI and DVT prophylaxis. Patient was reevaluated in the ICU today on 12/04/2018, sitting in bed, comfortable, in no distress, denies any shortness of breath or cough or wheezing , denies any chest pain, however she is complaining of vague abdominal discomfort. Her abdomen however is soft. Chest x-ray was not done today, but the chest x-ray from yesterday showed mild congestive heart failure and pulmonary vascular congestion. [id number] pleural effusions. With adjacent atelectasis. All labs from today including CBC and basic metabolic profile were reviewed, seem to be relatively normal. All meds she is presently on were reviewed. She remains on Lasix at 40 mg IV push every 12 hours. She remains on methylprednisolone which I will cut down further, and she remains on antibiotics./Cefepime. Patient was reevaluated today on 12/05/2018, remains as an overflow in the intensive care unit. Doing well, she continues to have intermittent episodes of confusion but today she seems to be very alert oriented, knew exactly what she was, she knew the year, and she knew the month. Patient is feeling better overall, her GI symptoms have resolved, denies any cough no wheezing no shortness of breath, she is presently on 3 L nasal cannula. Her CBC showed leukocytosis with WBC count of 20.4. Electrolytes are normal renal profile is normal. Bicarb is 40. No chest x-ray was done. Her chest x-ray yesterday and the day before was showing steady improvement in her congestive heart failure and infiltrates. Reevaluated today on 12/06/2018, patient remains as an overflow in the ICU. Clinically the patient is doing better, denies any cough no wheezing no shortness of breath. Denies any abdominal pain, no abdominal discomfort, no nausea no vomiting, does not have any diarrhea as a matter of fact she has not had a bowel movement over the last few days. But she is not in any distress, and her abdomen is soft. Her CBC is showing evidence of leukocytosis, patient remains on antibiotics, today I recommended pancultures. WBC count is 27.5 hemoglobin is 10.2. Electrolytes are normal renal profile is normal. Chest x- ray showed cardiomegaly, small bilateral effusions, and bibasilar atelectasis. Reevaluated today in the ICU on 12/07/2018, patient is an overflow in the ICU, doing well, slightly confused, denies any shortness of breath no cough no wheezing. Patient is requesting to be on her usual inhalers, and she is basically on all the bronchodilators given in different forms. No cough no wheezing no shortness of breath no chest pain. Intermittently, patient has been on BiPAP at night. Overall the patient has made a significant improvement over the last 10 days. Continues to have a bit of leukocytosis however the WBC count is better today. 24.9. Hemoglobin is 10.1 left lites are normal renal profile is normal. On 12/08/2018 patient seen again in follow-up on selective care unit. She is awake and alert, in no acute distress, on 3 L per nasal cannula pulse ox is 96% , hemodynamically stable, no fever or chills, lung sounds good air entry bilaterally, only a few scattered crackles at the right base, otherwise relatively clear. Room air pulse ox was 82%. ID service is following for antibiotic management, blood culture from 11/25/2018 was positive for Staphylococcus epidermidis, follow-up blood cultures have been negative, sputum culture and urine culture showed no growth. Urine culture showed Siena albicans, patient is on oral Diflucan and vancomycin. Last chest x-ray was done on 12/07/2018, and showed small bilateral pleural effusions, and bibasilar airspace disease some platelike atelectasis in the right midlung. No specific complaints, cough or wheezing, no nausea no vomiting, no abdominal pain. The patient is seen today 12/09/2018 in follow-up on the selective care unit. She is currently sitting up in a chair at the bedside. She is awake and alert in no acute distress. He is maintaining good O2 saturations in the mid 90s on 3 L/m per nasal cannula. She's afebrile. Hemodynamically stable. Blood culture reveals no growth. Sputum culture reveals no growth. White count 15.7. Hemoglobin 10.3. Sodium 136. Bicarb 41. Creatinine 1.16. Asked x-ray continues to show some mild fluid volume overload with small bilateral pleural effusions/atelectasis. She remains on IV diuretics 40 mg every 12 hours. She remains on albuterol, Symbicort and Singulair, prednisone. Remains on vancomycin per ID. Objective - Vital Signs Vital signs: Vital Signs Temp 97.9 F 12/09/18 15:53 Pulse 82 12/09/18 15:56 Resp 18 12/09/18 15:53 BP 137/85 12/09/18 15:53 Pulse Ox 97 12/09/18 15:53 Intake & Output 12/08/18 12/09/18 12/09/18 18:59 06:59 18:59 Output Total 1700 400 650 Balance -1700 -400 -650 Output: Urine 1700 400 650 Other: Voiding Method Bedside Commode Bedside Commode Bedside Commode # Voids 0 400 ABP, PAP, CO, CI - Last Documented Arterial Blood Pressure 117/67 - Exam GENERAL EXAM: Alert, pleasant, 73-year-old obese white female 2 L per nasal cannula comfortable in no apparent distress. HEAD: Normocephalic/atraumatic. EYES: Normal reaction of pupils, equal size. Conjunctiva pink, sclera white. NOSE: Clear with pink turbinates. THROAT: No erythema or exudates. NECK: No masses, no JVD, no thyroid enlargement, no adenopathy. Right IJ triple -lumen catheter CHEST: No chest wall deformity. Symmetrical expansion. LUNGS: Equal air entry with a few scattered crackles at the right base, no wheezes no rhonchi. CVS: Regular rate and rhythm, normal S1 and S2, no gallops, no murmurs, no rubs ABDOMEN: Soft, nontender. No hepatosplenomegaly, normal bowel sounds, no guarding or rigidity. EXTREMITIES: No clubbing, no edema, no cyanosis, 2+ pulses and upper and lower extremities. MUSCULOSKELETAL: Muscle strength and tone normal. SPINE: No scoliosis or deformity SKIN: No rashes CENTRAL NERVOUS SYSTEM: Alert and oriented -3. No focal deficits, tone is normal in all 4 extremities. PSYCHIATRIC: Alert and oriented -3. Appropriate affect. Intact judgment and insight. - Labs CBC & Chem 7: 12/09/18 07:00 12/09/18 06:59 Labs: Abnormal Lab Results - Last 24 Hours (Table) 12/08/18 12/09/18 12/09/18 Range/Units 20:59 05:44 06:59 WBC (3.8-10.6) k/uL RBC (3.80-5.40) m/uL Hgb (11.4-16.0) gm/dL Hct (34.0-46.0) % Neutrophils # (1.3-7.7) k/uL Lymphocytes # (1.0-4.8) k/uL Sodium 136 L (137-145) mmol/L Chloride 89 L (98-107) mmol/L Carbon Dioxide 41 H* (22-30) mmol/L BUN 38 H (7-17) mg/dL Creatinine 1.16 H (0.52-1.04) mg/dL Glucose 127 H (74-99) mg/dL POC Glucose (mg/dL) 163 H 135 H (75-99) mg/dL Total Protein 5.6 L (6.3-8.2) g/dL Albumin 2.9 L (3.5-5.0) g/dL 12/09/18 12/09/18 Range/Units 07:00 11:38 WBC 15.7 H (3.8-10.6) k/uL RBC 3.69 L (3.80-5.40) m/uL Hgb 10.3 L (11.4-16.0) gm/dL Hct 32.5 L (34.0-46.0) % Neutrophils # 13.7 H (1.3-7.7) k/uL Lymphocytes # 0.7 L (1.0-4.8) k/uL Sodium (137-145) mmol/L Chloride (98-107) mmol/L Carbon Dioxide (22-30) mmol/L BUN (7-17) mg/dL Creatinine (0.52-1.04) mg/dL Glucose (74-99) mg/dL POC Glucose (mg/dL) 188 H (75-99) mg/dL Total Protein (6.3-8.2) g/dL Albumin (3.5-5.0) g/dL Microbiology - Last 24 Hours (Table) 12/06/18 09:15 Blood Culture - Preliminary Blood No Growth after 72 hours 12/06/18 09:18 Blood Culture - Preliminary Blood No Growth after 72 hours 12/06/18 10:05 Urine Culture - Final Urine,Catheterized Siena albicans Assessment and Plan Assessment: 1 Acute hypoxic respiratory failure secondary to aspiration pneumonia and diastolic congestive heart failure, requiring intubation and mechanical ventilation. 2 acute sepsis secondary to pneumonia,septic shock requiring pressors and fluid boluses at one point. 8 third-degree AV block requiring transvenous pacemaker/temporary. 3 fluid overload and generalized anasarca, acute diastolic congestive heart failure 4 acute on chronic renal failure stage III 5 shock liver, improving 6 bacteremia/positive blood culture, however felt to be secondary to contamination 7 diastolic congestive heart failure hence more diuretics were added. 8 third-degree AV block requiring temporary transvenous pacemaker placement. 9 intermittent episodes of confusion, most likely related to metabolic encephalopathy. 10 leukocytosis, exact etiology is not clear, hence will order pancultures, continue antibiotics in the meantime, may have to consider removing the right IJ triple-lumen catheter. Clinically however the patient is not behaving like septic at this point. Plan: The patient was seen and evaluated by Dr. Sánchez. Chest x-ray and labs reviewed. She is improved. We'll continue the current treatment plan for now. Discharge planning is in place. She is hoping to eventually get back to [place]. We'll continue to follow. I, the cosigning physician, performed a history & physical examination of the patient. Lungs sounds with crackles in the right posterior base Maintaining good O2 saturations in the 90s on 3 L/m per nasal cannula. I discussed the assessment and plan of care with my nurse practitioner, Sonali Amanda. I attest to the above note as dictated by her.
[2018-12-09] MEDS: VANCOMYCIN 2,000 MG in SODIUM CHLORIDE 0.9% 500 ML 500 ML IVPB SCH (17:35)
[2018-12-09 17:43] LABS: Glucose,Whole Blood 174 mg/dL (75-99)
[2018-12-09 20:37] LABS: Glucose,Whole Blood 220 mg/dL (75-99)
--- NOTE | 2018-12-10 03:12 | PN ---
PROGRESS NOTE DATE OF SERVICE: 12/09/2018 REASON FOR FOLLOWUP: Urinary tract infection. INTERVAL HISTORY: The patient is currently afebrile. She is breathing comfortably. Patient denies having any chest pain or shortness of breath. Occasional cough. No abdominal pain. No diarrhea. PHYSICAL EXAMINATION: Patient blood pressure 134/65, pulse of 88, temperature 97.9. She is 96% on 3 L nasal cannula. General description is an elderly female up in the chair in no distress. RESPIRATORY SYSTEM: Unlabored breathing with decreased breath sounds at the base. No wheeze. HEART: S1, S2. Regular rate and rhythm. ABDOMEN: Soft. No tenderness. LABS: White count down to 15.7 with a BUN of 38, creatinine 1.16. DIAGNOSTIC IMPRESSION AND PLAN: 1. Patient with gram-negative pneumonia that has been adequately treated. 2. Patient with elevated white count. Source is more likely urine. The white count did improve with the addition of the Diflucan, to continue. If the blood culture remains negative by tomorrow, discontinue the vancomycin. Continue supportive care. MMODL / IJN: [id number] /
[2018-12-10 05:12] LABS: Glucose,Whole Blood 151 mg/dL (75-99)
[2018-12-10] MEDS: INSULIN ASPART 100 UNIT/ML 1 ML 10 ML VIAL SQ SCH ×7 (05:21→20:39)
[2018-12-10] MEDS: SYMBICORT 160-4.5 MCG INHALER INHALATION SCH ×2 (07:32→20:57)
[2018-12-10] MEDS: ALBUTEROL NEBULIZED 2.5 MG/3 ML INHALATION SCH ×4 (07:32→20:57)
[2018-12-10 07:47] LABS: Albumin 2.8 g/dL (3.5-5.0); Calcium 8.4 mg/dL (8.4-10.2); Potassium 3.7 mmol/L (3.5-5.1); Total Bilirubin 0.5 mg/dL (0.2-1.3); Total Protein 5.3 g/dL (6.3-8.2)
[2018-12-10 07:55] LABS: Basophils % (A) 0 %; Eosinophils # (A) 0.1 k/uL (0-0.7); Eosinophils % (A) 1 %; HCT 30.6 % (34.0-46.0); HGB 9.7 gm/dL (11.4-16.0); Hypochromasia Slight; Lymphocytes # (A) 0.8 k/uL (1.0-4.8); Lymphocytes % (A) 6 %; MCH 28.2 pg (25.0-35.0); MCHC 31.6 g/dL (31.0-37.0); MCV 89.5 fL (80.0-100.0); Mean Platelet Volume 7.2; Monocytes # (A) 0.8 k/uL (0-1.0); Monocytes % (A) 6 %; Neutrophils # (A) 11.4 k/uL (1.3-7.7); Neutrophils % (A) 87 %; Platelet Count 316 k/uL (150-450); RBC 3.42 m/uL (3.80-5.40); RDW 14.5 % (11.5-15.5); WBC 13.1 k/uL (3.8-10.6)
[2018-12-10] MEDS: FAMOTIDINE 20 MG TAB PO SCH (08:54)
[2018-12-10] MEDS: FOLIC ACID 1 MG TAB PO SCH (08:54)
[2018-12-10] MEDS: MONTELUKAST 10 MG TAB PO SCH (08:54)
[2018-12-10] MEDS: levETIRAcetam 500 MG TAB PO SCH ×2 (08:54→20:33)
[2018-12-10] MEDS: HEPARIN SODIUM,PORCINE 5,000 UNIT/ML 1 ML VIAL SQ SCH ×2 (08:54→20:38)
[2018-12-10] MEDS: predniSONE 20 MG TAB PO SCH (08:54)
[2018-12-10] MEDS: buPROPion SR 100 MG TABLET.ER PO SCH (08:54)
[2018-12-10] MEDS: FLUCONAZOLE 100 MG TAB PO SCH (08:54)
[2018-12-10] MEDS: DULoxetine HCL 30 MG CAPSULE.DR PO SCH (08:54)
[2018-12-10] MEDS: FUROSEMIDE 10 MG/ML 4 ML VIAL IV SCH ×2 (08:54→20:35)
[2018-12-10] MEDS: SODIUM CHLORIDE 0.9% 1,000 ML IV SCH (08:56)
[2018-12-10] MEDS: ALPRAZolam 0.25 MG TAB PO PRN ×2 (10:56→20:33)
[2018-12-10 11:38] LABS: Glucose,Whole Blood 153 mg/dL (75-99)
--- NOTE | 2018-12-10 14:38 | P.PN ---
Subjective Progress Note Date: 12/10/18 Principal diagnosis: Bilateral aspiration pneumonia, diastolic congestive heart failure This is a 73-year-old female I'm seeing today on 12/01/2018, patient was admitted almost a week ago with complete heart block and aspiration pneumonia some component of diastolic congestive heart failure/fluid overload. Patient was followed all along by Dr. Diaz, and she was seen yesterday by Dr. Sánchez who was covering Dr. Diaz while the patient is in the ICU. Patient had aspiration pneumonia, sepsis, complete heart block, fluid overload, acute respiratory failure with hypoxemia, lactic acidosis, acute renal failure, shock liver, and she was eventually extubated the day before yesterday. Remains in the ICU, she is on nasal cannula, and she has BiPAP at bedside to be used during sleep time. Patient is feeling good, she has cough and wheezing, but she denies being short of breath. She is extremely pleasant. Again she is basically asymptomatic. Chest x-ray was reviewed and it showed congestive heart failure changes with trace of right and [id number] left pleural effusion with pulmonary vascular congestion again it is mostly consistent with diastolic congestive heart failure. Labs were reviewed, she had a relatively normal CBC hemoglobin is 9.5 left lites are normal bicarb is 35 BUN is 25 creatinine 0.69. All meds were reviewed remains on bronchodilators, antibiotics, and I went ahead and increased her Lasix to 40 mg IV push every 12 hours. Reevaluated today on 12/02/2018, patient remains in the ICU, she had some episodes of confusion last night, didn't require placement on BiPAP. However patient seems to be alert oriented 3 this morning, and she does not seem to be in any form of distress. Presently on BiPAP, she is on IPAP of 14 and EPAP of 6 , and her FiO2 is being titrated to keep O2 saturation above 90%. Her confusion seems to have resolved, but apparently she has been noted to have confusion every night. Labs were reviewed, she had a relatively normal electrolytes, normal renal profile, and normal CBC. Chest x-ray continues to show some evidence of congestive heart failure with trace and [id number] left pleural effusion and pulmonary congestion. Patient today denies any headache no blurred vision no dizziness, no cough no wheezing, no nausea no vomiting no abdominal pain. Patient was reevaluated in the ICU today on 12/03/2018, remains on nasal cannula, doing fairly well, she does appear a bit more alert compared to yesterday. Not confused, patient is breathing easier, and she is on nasal cannula. Chest x- ray which I ordered today showed mild congestive heart failure changes and interstitial edema, significantly improved over the last few days. Labs were all reviewed, she has a relatively normal electrolytes, however her bicarb is 37 BUN is 33 creatinine 0.84. WBC count is 9.7 hemoglobin is 9.5. Medications were all reviewed, remains on bronchodilators, antibiotics, diuretics, she is also on GI and DVT prophylaxis. Patient was reevaluated in the ICU today on 12/04/2018, sitting in bed, comfortable, in no distress, denies any shortness of breath or cough or wheezing , denies any chest pain, however she is complaining of vague abdominal discomfort. Her abdomen however is soft. Chest x-ray was not done today, but the chest x-ray from yesterday showed mild congestive heart failure and pulmonary vascular congestion. Mkkko-ie-azyarwti pleural effusions. With adjacent atelectasis. All labs from today including CBC and basic metabolic profile were reviewed, seem to be relatively normal. All meds she is presently on were reviewed. She remains on Lasix at 40 mg IV push every 12 hours. She remains on methylprednisolone which I will cut down further, and she remains on antibiotics./Cefepime. Patient was reevaluated today on 12/05/2018, remains as an overflow in the intensive care unit. Doing well, she continues to have intermittent episodes of confusion but today she seems to be very alert oriented, knew exactly what she was, she knew the year, and she knew the month. Patient is feeling better overall, her GI symptoms have resolved, denies any cough no wheezing no shortness of breath, she is presently on 3 L nasal cannula. Her CBC showed leukocytosis with WBC count of 20.4. Electrolytes are normal renal profile is normal. Bicarb is 40. No chest x-ray was done. Her chest x-ray yesterday and the day before was showing steady improvement in her congestive heart failure and infiltrates. Reevaluated today on 12/06/2018, patient remains as an overflow in the ICU. Clinically the patient is doing better, denies any cough no wheezing no shortness of breath. Denies any abdominal pain, no abdominal discomfort, no nausea no vomiting, does not have any diarrhea as a matter of fact she has not had a bowel movement over the last few days. But she is not in any distress, and her abdomen is soft. Her CBC is showing evidence of leukocytosis, patient remains on antibiotics, today I recommended pancultures. WBC count is 27.5 hemoglobin is 10.2. Electrolytes are normal renal profile is normal. Chest x- ray showed cardiomegaly, small bilateral effusions, and bibasilar atelectasis. Reevaluated today in the ICU on 12/07/2018, patient is an overflow in the ICU, doing well, slightly confused, denies any shortness of breath no cough no wheezing. Patient is requesting to be on her usual inhalers, and she is basically on all the bronchodilators given in different forms. No cough no wheezing no shortness of breath no chest pain. Intermittently, patient has been on BiPAP at night. Overall the patient has made a significant improvement over the last 10 days. Continues to have a bit of leukocytosis however the WBC count is better today. 24.9. Hemoglobin is 10.1 left lites are normal renal profile is normal. On 12/08/2018 patient seen again in follow-up on selective care unit. She is awake and alert, in no acute distress, on 3 L per nasal cannula pulse ox is 96% , hemodynamically stable, no fever or chills, lung sounds good air entry bilaterally, only a few scattered crackles at the right base, otherwise relatively clear. Room air pulse ox was 82%. ID service is following for antibiotic management, blood culture from 11/25/2018 was positive for Staphylococcus epidermidis, follow-up blood cultures have been negative, sputum culture and urine culture showed no growth. Urine culture showed Siena albicans, patient is on oral Diflucan and vancomycin. Last chest x-ray was done on 12/07/2018, and showed small bilateral pleural effusions, and bibasilar airspace disease some platelike atelectasis in the right midlung. No specific complaints, cough or wheezing, no nausea no vomiting, no abdominal pain. The patient is seen today 12/09/2018 in follow-up on the selective care unit. She is currently sitting up in a chair at the bedside. She is awake and alert in no acute distress. He is maintaining good O2 saturations in the mid 90s on 3 L/m per nasal cannula. She's afebrile. Hemodynamically stable. Blood culture reveals no growth. Sputum culture reveals no growth. White count 15.7. Hemoglobin 10.3. Sodium 136. Bicarb 41. Creatinine 1.16. Asked x-ray continues to show some mild fluid volume overload with small bilateral pleural effusions/atelectasis. She remains on IV diuretics 40 mg every 12 hours. She remains on albuterol, Symbicort and Singulair, prednisone. Remains on vancomycin per ID. The patient is seen again today 12/10/2018 in follow-up on the selective care unit. She remains up in a chair at the bedside. Awake and alert. She is quite weak and not able to even stand on her own. On sounds are better with faint crackles in the posterior bases. She is maintaining good O2 saturations in the upper 90s on 2 L/m per nasal cannula. She's been intolerant to the BiPAP. Hemodynamically stable. White count 13.1. Hemoglobin 9.7. Creatinine 1.11. She remains on Symbicort, albuterol, oral prednisone taper. She is continued on IV diuretics. Objective - Vital Signs Vital signs: Vital Signs Temp 98.2 F 12/10/18 08:25 Pulse 85 12/10/18 11:40 Resp 16 12/10/18 11:40 BP 134/74 12/10/18 11:40 Pulse Ox 98 12/10/18 11:40 Intake & Output 12/09/18 12/10/18 12/10/18 18:59 06:59 18:59 Intake Total 820 Output Total 650 Balance -650 820 Weight 178.5 kg Intake: IV 820 Sodium Chloride 0.9% 1, 320 000 ml @ 20 mls/hr IV . Q24H [facility] Rx#:[id number] Vancomycin 2,500 mg In 500 Sodium Chloride 0.9% 500 ml 500 ml @ 166.667 mls/ hr IVPB ONCE ONE Rx#: [id number] Output: Urine 650 Other: Voiding Method Bedside Commode Bedside Commode Bedside Commode Bedpan Bedpan Diaper Diaper # Voids 400 3 ABP, PAP, CO, CI - Last Documented Arterial Blood Pressure 117/67 - Exam GENERAL EXAM: Alert, pleasant, 73-year-old obese female 2 L per nasal cannula comfortable in no apparent distress. HEAD: Normocephalic/atraumatic. EYES: Normal reaction of pupils, equal size. Conjunctiva pink, sclera white. NOSE: Clear with pink turbinates. THROAT: No erythema or exudates. NECK: No masses, no JVD, no thyroid enlargement, no adenopathy. CHEST: No chest wall deformity. Symmetrical expansion. LUNGS: Equal air entry with a few scattered crackles at the right base, no wheezes no rhonchi. CVS: Regular rate and rhythm, normal S1 and S2, no gallops, no murmurs, no rubs ABDOMEN: Soft, nontender. No hepatosplenomegaly, normal bowel sounds, no guarding or rigidity. EXTREMITIES: No clubbing, no edema, no cyanosis, 2+ pulses and upper and lower extremities. MUSCULOSKELETAL: Muscle strength and tone normal. SPINE: No scoliosis or deformity SKIN: No rashes CENTRAL NERVOUS SYSTEM: Alert and oriented -3. No focal deficits, tone is normal in all 4 extremities. PSYCHIATRIC: Alert and oriented -3. Appropriate affect. Intact judgment and insight. - Labs CBC & Chem 7: 12/10/18 06:33 12/10/18 06:33 Labs: Abnormal Lab Results - Last 24 Hours (Table) 12/09/18 12/09/18 12/10/18 Range/Units 17:19 20:36 05:10 WBC (3.8-10.6) k/uL RBC (3.80-5.40) m/uL Hgb (11.4-16.0) gm/dL Hct (34.0-46.0) % Neutrophils # (1.3-7.7) k/uL Lymphocytes # (1.0-4.8) k/uL Sodium (137-145) mmol/L Chloride (98-107) mmol/L Carbon Dioxide (22-30) mmol/L BUN (7-17) mg/dL Creatinine (0.52-1.04) mg/dL Glucose (74-99) mg/dL POC Glucose (mg/dL) 174 H 220 H 151 H (75-99) mg/dL Total Protein (6.3-8.2) g/dL Albumin (3.5-5.0) g/dL 12/10/18 12/10/18 12/10/18 Range/Units 06:33 06:33 11:26 WBC 13.1 H (3.8-10.6) k/uL RBC 3.42 L (3.80-5.40) m/uL Hgb 9.7 L (11.4-16.0) gm/dL Hct 30.6 L (34.0-46.0) % Neutrophils # 11.4 H (1.3-7.7) k/uL Lymphocytes # 0.8 L (1.0-4.8) k/uL Sodium 135 L (137-145) mmol/L Chloride 88 L (98-107) mmol/L Carbon Dioxide 43 H* (22-30) mmol/L BUN 35 H (7-17) mg/dL Creatinine 1.11 H (0.52-1.04) mg/dL Glucose 135 H (74-99) mg/dL POC Glucose (mg/dL) 153 H (75-99) mg/dL Total Protein 5.3 L (6.3-8.2) g/dL Albumin 2.8 L (3.5-5.0) g/dL Microbiology - Last 24 Hours (Table) 12/06/18 09:18 Blood Culture - Preliminary Blood No Growth after 96 hours 12/06/18 09:15 Blood Culture - Preliminary Blood No Growth after 96 hours Assessment and Plan Assessment: Impression: 1 Acute hypoxic respiratory failure secondary to aspiration pneumonia and diastolic congestive heart failure, requiring intubation and mechanical ventilation. Recovered. Currently on 2 L/m per nasal cannula 2 acute sepsis secondary to pneumonia,septic shock requiring pressors and fluid boluses at one point. 8 third-degree AV block requiring transvenous pacemaker/temporary. 3 fluid overload and generalized anasarca, acute diastolic congestive heart failure 4 acute on chronic renal failure stage III 5 shock liver, improving 6 bacteremia/positive blood culture, however felt to be secondary to contamination 7 diastolic congestive heart failure hence more diuretics were added. 8 third-degree AV block requiring temporary transvenous pacemaker placement. 9 intermittent episodes of confusion, most likely related to metabolic encephalopathy. 10 leukocytosis, exact etiology is not clear, hence will order pancultures, continue antibiotics in the meantime, may have to consider removing the right IJ triple-lumen catheter. Clinically however the patient is not behaving like septic at this point. Plan: The patient was seen and evaluated by Dr. Sánchez. She is stable from the pulmonary standpoint. We'll continue the current treatment plan for now. Discharge planning is in place. Her daughter is applying for guardianship. We will follow with the patient on as-needed basis. I, the cosigning physician, performed a history & physical examination of the patient. Lungs sounds with crackles in the right posterior base Maintaining good O2 saturations in the 90s on 2 L/m per nasal cannula. I discussed the assessment and plan of care with my nurse practitioner, Sonali Amanda. I attest to the above note as dictated by her.
--- NOTE | 2018-12-10 14:46 | CDI ---
Documentation Clarification Form Date: 12/10/2018 2:34:44 PM From: Genie Carmona CCS, CCDS Admit Date: 11/26/2018 6:12:00 AM Patient Name: Isabel Keene Visit Number: [id number] Discharge Date: ATTENTION: The Clinical Documentation Specialists (CDI) and [facility] Coding Staff appreciate your assistance in clarifying documentation. Please respond to the clarification below the line at the bottom and electronically sign. The CDI & [facility] Coding staff will review the response and follow-up if needed. Please note: Queries are made part of the Legal Health Record. If you have any questions, please contact the author of this message via ITS. Dr. Felix Robins: A diagnosis of UTI has been documented in the 12/08 Infectious Disease progress note. History/Risk Factors: Hypertension, CHF, RA, Obesity, Asthma, previous cholecystectomy. Former smoker. Clinical Indicators: Presented with high grade AV block & AV dissociation requiring temporary pacemaker. Admitted post procedure to ICU on 11/26 with persistent nausea & diarrhea. Found to be in 3rd degree high grade AV block, acute respiratory failure, Sepsis , lactic acidosis, hyponatremia, acute renal failure, cardiogenic shock. & shock liver. Intubated on vent on admission. Mcgovern catheter was placed upon arrival to ICU, discontinued on 12/08. Urinalysis 11/25: 1+ protein, Hyaline casts 8. Urine culture: negative Repeat urine culture on 12/06: Siena albicans Lab results 12/10: WBC 13.1^, Neut 11.4^ Treatment: Extubated 11/28. As of 12/08: Remains on IV Vanco, receiving Symbicort INH, po Prednisone, started Diflucan on 12/06. In your professional opinion, can you please clarify the etiology of the UTI, if known? Mcgovern catheter o UTI related to catheter o UTI not related to catheter o Other condition, please specify o Unable to determine If an infective organism is present, please specify cause and effect relationship if applicable. (Last Revision: March 2018) MTDD
--- NOTE | 2018-12-10 14:53 | P.PN ---
Subjective Progress Note Date: 12/10/18 73-year-old female who was seen evaluated examined on medical floor, this patient admitted into the hospital earlier this morning with problems associated with nauseous feeling and nasopharyngeal swab for influenza A and B were both negative, her symptoms started a day before she has not been taking able to take anything by mouth she is not taking her home medication as well, patient has been having looser stool as well overall symptoms appeared to be like gastroenteritis however no bloody diarrhea has been noted, patient denies any emesis denies any abdominal pain and on specific questioning denies any chest pain or radiation of pain, she does have a history of COPD and chronic persistent asthma, patient also has a history of hypertension hypertensive cardiovascular disease and advanced steroid-dependent rheumatoid arthritis, she has not been formally evaluated for sleep disorder breathing and sleep apnea, on medical floor patient was found to be bradycardic which was a significant change compared to her admit vitals, patient was however hemodynamically stable but due to significant bradycardia transferred to the selective care/ICU if no bed is available consult with cardiology has been also initiated, they felt that patient to be monitored and observed dopamine/dopamine and check agents were not initiated as patient was hemodynamically stable and bradycardia thought to be related to exaggerated vagal response, review of the data also revealed that patient is hyponatremic, initial EKG revealed sinus tachycardia with left bundle branch block and currently developed high degree AV block, patient failed to capture external pacemaker eventually due to severe restlessness and significant bradycardia was intubated and cardiovascular services took her to the Lab at transvenous temporary pacemaker has been inserted through the groin, and A-line has been inserted by the anesthesia, patient only has a single lumen groin catheter through which transvenous pacemaker is present being infused with 10 mics of levo fed as well as dopamine to keep map around 65-70 patient is on full ventilator support initially patient was place on assist control rate of 20 tidal volume of 505 of PEEP 100% oxygen now rate is being cut down to 14 PEEP is 5 FiO2 Is Lowered down to 50%, 11/26/2018 patient seen eval reexamined during the rounds clinically patient remains sedated with propofol drip currently patient is on 20 mics able to come down however hemodynamic status remains marginal, patient require 100% pacing as without heart rate drops down to less than 30, patient is also on levo fed drip 35 mics, and dopamine drip 10 mics, currently maintenance IV fluids 50 mL an hour being given, patient has been found to be hypokalemic potassium has been replaced, chest x-ray revealed a possible developing left lower lobe infiltrate cannot be excluded along with small effusion, on assist control rate of 12 breathing 12 tidal volume of 500, with PEEP of 5, FiO2 is down to 40%, chest x-ray reviewed laboratory data reviewed, critical care time spent 40 minutes 11/27/2018, patient seen eval examined during the rounds clinically patient is slightly improving terms of hemodynamics, the heart block has improvement, heart rate spontaneous is in 60s to 70s, blood pressure map remains over 60-70, patient however remains on dopamine which has been titrated down to 2 mics, the levo fed has been lowered down to 6 mics as well, patient is 15 mics of propofol she is arousable does open eyes, she remains on full vent setting with assist control 12 breathing 12 tidal volume is 500, PEEP is 5, oxygen is down to 40%, chest x-ray laboratory data reviewed, blood cultures appears to be contamination as coag-negative staph has been noted, ID service has been consulted, care plan discussed with the staff at length, cardiovascular services recommendations reviewed, critical care time spent 35 minutes 11/28/2018, patient seen eval examined during rounds clinically is now off of vasopressors dopamine levo fed has been discontinued, patient has been on assist control mode switched over to CPAP 5 pressure support of 10, patient is monitor and observe on the pressure support and CPAP, spontaneous tidal volume at 300 range respiratory rate in the low 20s, saturation remains 90%, patient is still somnolent but arousable, will plan to have extended weaning for one hour and then will check arterial blood gas which was reviewed as well patient tolerated the CPAP pressure trial and very well is being extubated, otherwise patient remains afebrile respiratory secretions stable labs x-rays and radiographic studies reviewed, patient appears to have component of anasarca 40 mg of Lasix IVs does being given will put patient on daily IV furosemide as well , critical care time spent 35 minutes 11/29/2018, patient seen eval reexamined during the rounds she has been successfully weaned and active extubated she is on supplemental oxygen very weak though, patient is still have a temperature transvenous pacemaker, which is set at 40, patient is back to her sinus rhythm, patient does have a history of sleep disorder breathing and sleep apnea as per discussion with the daughter she does not use her CPAP machine very regularly, I have educated them extensively at, patient remains on broad-spectrum antibiotics labs reviewed medications reviewed radiographic studies reviewed as well, chest x-ray revealed a small pleural effusion with right basal infiltrate cardiomegaly stable triple-lumen catheter 12/01/2018. Patient remains in the intensive care unit. Patient currently on 4 L. temporary pacemaker has been removed per cardiology services. Heart rate has remained stable. At this time patient denies any chest pain or shortness breath. Patient denies nausea vomiting or diarrhea. Patient denies any urinary burning or frequency on 12/02/2018 patient remains in the intensive care unit. Patient is currently sleeping with BiPAP in place. Patient's heart rate has remained within normal limits. At this time patient denies chest pain or shortness of breath. Patient denies nausea vomiting or diarrhea. Patient denies any urinary burning or frequency. Per nursing staff patient did have a bout of confusion throughout night which is not the first occurrence On 12/03/2018 patient does appear more alert than yesterday. Patient does have increased upper respiratory wheezing. Chest x-ray ordered per critical care team. At this time patient denies chest pain or shortness breath. Patient denies nausea vomiting or diarrhea. Patient denies any urinary burning or frequency. On 12/04/2018 patient is awake and alert. Patient's expiratory wheezing does sound improved. At this time patient denies chest pain or shortness of breath. Patient denies nausea vomiting or diarrhea. Patient denies any urinary burning or frequency On 12/05/2018 patient is alert and awake eating breakfast in bed. Per nursing staff patient is a bit more confused today. CO2 is up to 40. Per nursing staff patient did not consistently wear BiPAP throughout night. At this time patient denies chest pain or shortness of breath. Patient denies nausea vomiting or diarrhea. Patient denies any urinary burning or frequency. On 12/06/2018 patient was seen and examined in ICU she required BiPAP throughout the night she is alert and oriented in no apparent distress currently she is maintained on nasal cannula she is still complaining of cough and shortness of breath she denies any chest pain or there is no fever or chills no nausea or vomiting no abdominal pain no diarrhea and no urinary symptoms. On 12/07/2018 patient is alert and oriented 3 in no apparent distress currently maintained on nasal cannula she was able to wear BiPAP throughout the night she states she feels better shortness of breath is improving there is occasional cough she denies any pain or discomfort there is no fever or chills no chest pain no nausea or vomiting no abdominal pain no diarrhea and no urinary symptoms On 12/08/2018 patient is alert and oriented 3. Patient currently resting comfortably cardiac care unit. At this time patient denies chest pain or shortness breath. Patient denies nausea vomiting or diarrhea. Patient denies any urinary burning or frequency on 12/09/2018 patient has a bit more confused today. CO2 is elevated at 41. Pulmonary services are following. At this time patient denies chest pain or shortness of breath. Patient denies nausea vomiting or diarrhea. Patient denies any urinary burning or frequency On 12/10/2018 patient remains confused. Pulmonary services are following. Patient's daughter in process of gaining guardianship. At this time patient denies chest pain or shortness of breath. Patient denies nausea vomiting or diarrhea. Patient denies any urinary burning or frequency. Objective - Vital Signs Vital signs: Vital Signs Temp 98.2 F 12/10/18 08:25 Pulse 85 12/10/18 11:40 Resp 16 12/10/18 11:40 BP 134/74 12/10/18 11:40 Pulse Ox 98 12/10/18 11:40 Intake & Output 12/09/18 12/10/18 12/10/18 18:59 06:59 18:59 Intake Total 820 Output Total 650 600 Balance -650 820 -600 Weight 178.5 kg Intake: IV 820 Sodium Chloride 0.9% 1, 320 000 ml @ 20 mls/hr IV . Q24H [facility] Rx#:[id number] Vancomycin 2,500 mg In 500 Sodium Chloride 0.9% 500 ml 500 ml @ 166.667 mls/ hr IVPB ONCE ONE Rx#: [id number] Output: Urine 650 600 Other: Voiding Method Bedside Commode Bedside Commode Bedside Commode Bedpan Bedpan Diaper Diaper # Voids 400 3 ABP, PAP, CO, CI - Last Documented Arterial Blood Pressure 117/67 - Exam Head normocephalic Neck supple Lungs diminished bilaterally with expiratory wheezing Heart regular rate and rhythm S1-S2, no rub or gallop Abdomen is soft nontender nondistended positive bowel sounds no hepatosplenomegaly Extremities no edema - Labs CBC & Chem 7: 12/10/18 06:33 12/10/18 06:33 Labs: Abnormal Lab Results - Last 24 Hours (Table) 12/09/18 12/09/18 12/10/18 Range/Units 17:19 20:36 05:10 WBC (3.8-10.6) k/uL RBC (3.80-5.40) m/uL Hgb (11.4-16.0) gm/dL Hct (34.0-46.0) % Neutrophils # (1.3-7.7) k/uL Lymphocytes # (1.0-4.8) k/uL Sodium (137-145) mmol/L Chloride (98-107) mmol/L Carbon Dioxide (22-30) mmol/L BUN (7-17) mg/dL Creatinine (0.52-1.04) mg/dL Glucose (74-99) mg/dL POC Glucose (mg/dL) 174 H 220 H 151 H (75-99) mg/dL Total Protein (6.3-8.2) g/dL Albumin (3.5-5.0) g/dL 12/10/18 12/10/18 12/10/18 Range/Units 06:33 06:33 11:26 WBC 13.1 H (3.8-10.6) k/uL RBC 3.42 L (3.80-5.40) m/uL Hgb 9.7 L (11.4-16.0) gm/dL Hct 30.6 L (34.0-46.0) % Neutrophils # 11.4 H (1.3-7.7) k/uL Lymphocytes # 0.8 L (1.0-4.8) k/uL Sodium 135 L (137-145) mmol/L Chloride 88 L (98-107) mmol/L Carbon Dioxide 43 H* (22-30) mmol/L BUN 35 H (7-17) mg/dL Creatinine 1.11 H (0.52-1.04) mg/dL Glucose 135 H (74-99) mg/dL POC Glucose (mg/dL) 153 H (75-99) mg/dL Total Protein 5.3 L (6.3-8.2) g/dL Albumin 2.8 L (3.5-5.0) g/dL Microbiology - Last 24 Hours (Table) 12/06/18 09:18 Blood Culture - Preliminary Blood No Growth after 96 hours 12/06/18 09:15 Blood Culture - Preliminary Blood No Growth after 96 hours Assessment and Plan Assessment: 1. Acute aspiration pneumonia, leading to acute hypoxic respiratory failure, requiring intubation and mechanical ventilation. . Patient also on Solu- Medrol 60 mg every 6 hours. Per pulmonary services Lasix has been increased to 40 twice a day. Repeat chest x-ray completed showing continued changes of mild- to-moderate CHF with pulmonary vascular congestion. Small to moderate pleural effusions with adjacent atelectasis and consolidation. Patient remains on IV Lasix. She has been switched to oral prednisone per pulmonary. 2. Acute sepsis secondary to pneumonia. Patient remains off pressors. Lactic acid 5.3. Repeat 3.0 Blood culture currently growing Staphylococcus epidermidis. Dr. Robins has been consulted for infectious disease. remains on vancomycin. per infectious disease there is no need for line placement at this point for antibiotics 3. Severe complete third-degree high-grade AV block. Patient did have TVP in place. TVP has been pulled per cardiology services. discussed case with cardiology [employer] Prerna machado. No plans at this time for patient to Permanent pacemaker placed. Patient has been cleared from cardiology services 4. Fluid overload and generalized anasarca. Maintained IV Lasix 5. Lactic acidosis secondary due to due to poor perfusion and cardiogenic shock 6. Hyponatremia. Improving to 134 7. Acute renal failure stage III. creatinine 1.16 and bun 38 8. History of essential hypertension 9. History of osteoarthritis 10. History of anxiety and depression 11. Hyperglycemia due to steroids. Patient placed on sliding scale steroid coverage. Hemoglobin A1c 6.4 from 11/26/2018 Patient will likely need ECF placement upon discharge social work and physical therapy consulted Patient start currently in process obtaining guardianship DVT prophylaxis heparin. GI prophylaxis pepcid I performed an examination of the patient and discussed their management with the Nurse Practitioner. I have reviewed the Nurse Practitioner's notes and agree with the documented findings and plan of care
[2018-12-10 16:30] LABS: Glucose,Whole Blood 244 mg/dL (75-99)
--- NOTE | 2018-12-10 16:34 | PN ---
PROGRESS NOTE DATE OF SERVICE: 12/10/2018 REASON FOR FOLLOWUP: Urinary tract infection. INTERVAL HISTORY: The patient is currently afebrile. She is breathing comfortably. Denies having any chest pain or shortness of breath. No cough. No abdominal pain. No diarrhea. PHYSICAL EXAMINATION: Her blood pressure is 134/74, pulse of 75, temperature 98. She is 98% on 2 L nasal cannula. General description is an elderly female up in the chair in no distress. Respiratory system: Unlabored breathing. Clear to auscultation anteriorly. Heart S1, S2. Regular rate and rhythm. ABDOMEN: Soft, no tenderness. LABS: White count 13.9, creatinine is 1.11. DIAGNOSTIC IMPRESSION AND PLAN: 1. Patient with a component of gram-negative pneumonia that has been adequately treated. 2. The patient now with urinary tract infection. Urine has been yeast. The patient is responding to the oral Diflucan with overall improvement in her white count to finish therapy with a short course of oral Diflucan. Continue supportive care. MMODL / IJN: [id number] /
[2018-12-10 20:27] LABS: Glucose,Whole Blood 243 mg/dL (75-99)
[2018-12-11 05:37] LABS: Glucose,Whole Blood 168 mg/dL (75-99)
[2018-12-11] MEDS: INSULIN ASPART 100 UNIT/ML 1 ML 10 ML VIAL SQ SCH ×7 (07:03→20:56)
[2018-12-11] MEDS: SYMBICORT 160-4.5 MCG INHALER INHALATION SCH ×2 (07:22→20:37)
[2018-12-11] MEDS: ALBUTEROL NEBULIZED 2.5 MG/3 ML INHALATION SCH ×4 (07:22→20:36)
[2018-12-11 07:35] LABS: Basophils % (A) 0 %; Eosinophils # (A) 0.1 k/uL (0-0.7); Eosinophils % (A) 1 %; HCT 29.5 % (34.0-46.0); HGB 9.4 gm/dL (11.4-16.0); Lymphocytes # (A) 0.9 k/uL (1.0-4.8); Lymphocytes % (A) 7 %; MCH 28.3 pg (25.0-35.0); MCV 88.5 fL (80.0-100.0); Monocytes # (A) 0.9 k/uL (0-1.0); Monocytes % (A) 7 %; Neutrophils # (A) 10.5 k/uL (1.3-7.7); Neutrophils % (A) 84 %; Platelet Count 358 k/uL (150-450); RBC 3.33 m/uL (3.80-5.40); RDW 14.3 % (11.5-15.5); WBC 12.5 k/uL (3.8-10.6)
[2018-12-11 07:52] LABS: Albumin 2.8 g/dL (3.5-5.0); Calcium 8.6 mg/dL (8.4-10.2); Potassium 3.5 mmol/L (3.5-5.1); Total Bilirubin 0.5 mg/dL (0.2-1.3); Total Protein 5.4 g/dL (6.3-8.2)
[2018-12-11] MEDS: ALPRAZolam 0.25 MG TAB PO PRN ×2 (08:42→20:56)
[2018-12-11] MEDS: FAMOTIDINE 20 MG TAB PO SCH (08:42)
[2018-12-11] MEDS: FLUCONAZOLE 100 MG TAB PO SCH (08:42)
[2018-12-11] MEDS: levETIRAcetam 500 MG TAB PO SCH ×2 (08:42→21:34)
[2018-12-11] MEDS: HEPARIN SODIUM,PORCINE 5,000 UNIT/ML 1 ML VIAL SQ SCH ×2 (08:43→20:56)
[2018-12-11] MEDS: MONTELUKAST 10 MG TAB PO SCH (08:43)
[2018-12-11] MEDS: FOLIC ACID 1 MG TAB PO SCH (08:43)
[2018-12-11] MEDS: FUROSEMIDE 10 MG/ML 4 ML VIAL IV SCH (08:43)
[2018-12-11] MEDS: predniSONE 20 MG TAB PO SCH (08:43)
[2018-12-11] MEDS: DULoxetine HCL 30 MG CAPSULE.DR PO SCH (08:43)
[2018-12-11] MEDS: SODIUM CHLORIDE 0.9% 1,000 ML IV SCH (08:56)
[2018-12-11] MEDS: buPROPion SR 100 MG TABLET.ER PO SCH (08:56)
--- NOTE | 2018-12-11 11:08 | P.PN ---
Subjective Progress Note Date: 12/11/18 73-year-old female who was seen evaluated examined on medical floor, this patient admitted into the hospital earlier this morning with problems associated with nauseous feeling and nasopharyngeal swab for influenza A and B were both negative, her symptoms started a day before she has not been taking able to take anything by mouth she is not taking her home medication as well, patient has been having looser stool as well overall symptoms appeared to be like gastroenteritis however no bloody diarrhea has been noted, patient denies any emesis denies any abdominal pain and on specific questioning denies any chest pain or radiation of pain, she does have a history of COPD and chronic persistent asthma, patient also has a history of hypertension hypertensive cardiovascular disease and advanced steroid-dependent rheumatoid arthritis, she has not been formally evaluated for sleep disorder breathing and sleep apnea, on medical floor patient was found to be bradycardic which was a significant change compared to her admit vitals, patient was however hemodynamically stable but due to significant bradycardia transferred to the selective care/ICU if no bed is available consult with cardiology has been also initiated, they felt that patient to be monitored and observed dopamine/dopamine and check agents were not initiated as patient was hemodynamically stable and bradycardia thought to be related to exaggerated vagal response, review of the data also revealed that patient is hyponatremic, initial EKG revealed sinus tachycardia with left bundle branch block and currently developed high degree AV block, patient failed to capture external pacemaker eventually due to severe restlessness and significant bradycardia was intubated and cardiovascular services took her to the Lab at transvenous temporary pacemaker has been inserted through the groin, and A-line has been inserted by the anesthesia, patient only has a single lumen groin catheter through which transvenous pacemaker is present being infused with 10 mics of levo fed as well as dopamine to keep map around 65-70 patient is on full ventilator support initially patient was place on assist control rate of 20 tidal volume of 505 of PEEP 100% oxygen now rate is being cut down to 14 PEEP is 5 FiO2 Is Lowered down to 50%, 11/26/2018 patient seen eval reexamined during the rounds clinically patient remains sedated with propofol drip currently patient is on 20 mics able to come down however hemodynamic status remains marginal, patient require 100% pacing as without heart rate drops down to less than 30, patient is also on levo fed drip 35 mics, and dopamine drip 10 mics, currently maintenance IV fluids 50 mL an hour being given, patient has been found to be hypokalemic potassium has been replaced, chest x-ray revealed a possible developing left lower lobe infiltrate cannot be excluded along with small effusion, on assist control rate of 12 breathing 12 tidal volume of 500, with PEEP of 5, FiO2 is down to 40%, chest x-ray reviewed laboratory data reviewed, critical care time spent 40 minutes 11/27/2018, patient seen eval examined during the rounds clinically patient is slightly improving terms of hemodynamics, the heart block has improvement, heart rate spontaneous is in 60s to 70s, blood pressure map remains over 60-70, patient however remains on dopamine which has been titrated down to 2 mics, the levo fed has been lowered down to 6 mics as well, patient is 15 mics of propofol she is arousable does open eyes, she remains on full vent setting with assist control 12 breathing 12 tidal volume is 500, PEEP is 5, oxygen is down to 40%, chest x-ray laboratory data reviewed, blood cultures appears to be contamination as coag-negative staph has been noted, ID service has been consulted, care plan discussed with the staff at length, cardiovascular services recommendations reviewed, critical care time spent 35 minutes 11/28/2018, patient seen eval examined during rounds clinically is now off of vasopressors dopamine levo fed has been discontinued, patient has been on assist control mode switched over to CPAP 5 pressure support of 10, patient is monitor and observe on the pressure support and CPAP, spontaneous tidal volume at 300 range respiratory rate in the low 20s, saturation remains 90%, patient is still somnolent but arousable, will plan to have extended weaning for one hour and then will check arterial blood gas which was reviewed as well patient tolerated the CPAP pressure trial and very well is being extubated, otherwise patient remains afebrile respiratory secretions stable labs x-rays and radiographic studies reviewed, patient appears to have component of anasarca 40 mg of Lasix IVs does being given will put patient on daily IV furosemide as well , critical care time spent 35 minutes 11/29/2018, patient seen eval reexamined during the rounds she has been successfully weaned and active extubated she is on supplemental oxygen very weak though, patient is still have a temperature transvenous pacemaker, which is set at 40, patient is back to her sinus rhythm, patient does have a history of sleep disorder breathing and sleep apnea as per discussion with the daughter she does not use her CPAP machine very regularly, I have educated them extensively at, patient remains on broad-spectrum antibiotics labs reviewed medications reviewed radiographic studies reviewed as well, chest x-ray revealed a small pleural effusion with right basal infiltrate cardiomegaly stable triple-lumen catheter 12/01/2018. Patient remains in the intensive care unit. Patient currently on 4 L. temporary pacemaker has been removed per cardiology services. Heart rate has remained stable. At this time patient denies any chest pain or shortness breath. Patient denies nausea vomiting or diarrhea. Patient denies any urinary burning or frequency on 12/02/2018 patient remains in the intensive care unit. Patient is currently sleeping with BiPAP in place. Patient's heart rate has remained within normal limits. At this time patient denies chest pain or shortness of breath. Patient denies nausea vomiting or diarrhea. Patient denies any urinary burning or frequency. Per nursing staff patient did have a bout of confusion throughout night which is not the first occurrence On 12/03/2018 patient does appear more alert than yesterday. Patient does have increased upper respiratory wheezing. Chest x-ray ordered per critical care team. At this time patient denies chest pain or shortness breath. Patient denies nausea vomiting or diarrhea. Patient denies any urinary burning or frequency. On 12/04/2018 patient is awake and alert. Patient's expiratory wheezing does sound improved. At this time patient denies chest pain or shortness of breath. Patient denies nausea vomiting or diarrhea. Patient denies any urinary burning or frequency On 12/05/2018 patient is alert and awake eating breakfast in bed. Per nursing staff patient is a bit more confused today. CO2 is up to 40. Per nursing staff patient did not consistently wear BiPAP throughout night. At this time patient denies chest pain or shortness of breath. Patient denies nausea vomiting or diarrhea. Patient denies any urinary burning or frequency. On 12/06/2018 patient was seen and examined in ICU she required BiPAP throughout the night she is alert and oriented in no apparent distress currently she is maintained on nasal cannula she is still complaining of cough and shortness of breath she denies any chest pain or there is no fever or chills no nausea or vomiting no abdominal pain no diarrhea and no urinary symptoms. On 12/07/2018 patient is alert and oriented 3 in no apparent distress currently maintained on nasal cannula she was able to wear BiPAP throughout the night she states she feels better shortness of breath is improving there is occasional cough she denies any pain or discomfort there is no fever or chills no chest pain no nausea or vomiting no abdominal pain no diarrhea and no urinary symptoms On 12/08/2018 patient is alert and oriented 3. Patient currently resting comfortably cardiac care unit. At this time patient denies chest pain or shortness breath. Patient denies nausea vomiting or diarrhea. Patient denies any urinary burning or frequency on 12/09/2018 patient has a bit more confused today. CO2 is elevated at 41. Pulmonary services are following. At this time patient denies chest pain or shortness of breath. Patient denies nausea vomiting or diarrhea. Patient denies any urinary burning or frequency On 12/10/2018 patient remains confused. Pulmonary services are following. Patient's daughter in process of gaining guardianship. At this time patient denies chest pain or shortness of breath. Patient denies nausea vomiting or diarrhea. Patient denies any urinary burning or frequency. On 12/11/2018 patient remains confused. Discussed case with case specialist. Daughter next of kin is trying to get guardianship for patient to go to rehab. At this time patient denies chest pain or shortness breath. Patient denies nausea vomiting or diarrhea. Patient denies any urinary burning or frequency. Creatinine increasing. Will change IV Lasix over to by mouth. CO2 also high at 46. Will add Diamox 250 mg by mouth twice a day for 3 days. Objective - Vital Signs Vital signs: Vital Signs Temp 97.5 F L 12/11/18 03:13 Pulse 81 12/11/18 08:00 Resp 18 12/11/18 08:00 BP 131/81 12/11/18 03:13 Pulse Ox 98 12/11/18 03:13 Intake & Output 12/10/18 12/11/18 12/11/18 18:59 06:59 18:59 Intake Total 20 510 Output Total 1600 Balance -1600 20 510 Weight 118.7 kg Intake: IV 20 10 Invasive Line 8 10 Sodium Chloride 0.9% 1, 20 000 ml @ 20 mls/hr IV . Q24H [facility] Rx#:[id number] Oral 500 Output: Urine 1600 Other: Voiding Method Bedside Commode Bedside Commode Bedpan Bedpan Bedpan Diaper Diaper Diaper # Bowel Movements 1 ABP, PAP, CO, CI - Last Documented Arterial Blood Pressure 117/67 - Exam Head normocephalic Neck supple Lungs diminished bilaterally with expiratory wheezing Heart regular rate and rhythm S1-S2, no rub or gallop Abdomen is soft nontender nondistended positive bowel sounds no hepatosplenomegaly Extremities no edema - Labs CBC & Chem 7: 12/11/18 05:57 12/11/18 05:57 Labs: Abnormal Lab Results - Last 24 Hours (Table) 12/10/18 12/10/18 12/10/18 Range/Units 11:26 16:27 20:26 WBC (3.8-10.6) k/uL RBC (3.80-5.40) m/uL Hgb (11.4-16.0) gm/dL Hct (34.0-46.0) % Neutrophils # (1.3-7.7) k/uL Lymphocytes # (1.0-4.8) k/uL Sodium (137-145) mmol/L Chloride (98-107) mmol/L Carbon Dioxide (22-30) mmol/L BUN (7-17) mg/dL Creatinine (0.52-1.04) mg/dL Glucose (74-99) mg/dL POC Glucose (mg/dL) 153 H 244 H 243 H (75-99) mg/dL Total Protein (6.3-8.2) g/dL Albumin (3.5-5.0) g/dL 12/11/18 12/11/18 12/11/18 Range/Units 05:35 05:57 05:57 WBC 12.5 H (3.8-10.6) k/uL RBC 3.33 L (3.80-5.40) m/uL Hgb 9.4 L (11.4-16.0) gm/dL Hct 29.5 L (34.0-46.0) % Neutrophils # 10.5 H (1.3-7.7) k/uL Lymphocytes # 0.9 L (1.0-4.8) k/uL Sodium 135 L (137-145) mmol/L Chloride 86 L (98-107) mmol/L Carbon Dioxide 46 H* (22-30) mmol/L BUN 32 H (7-17) mg/dL Creatinine 1.19 H (0.52-1.04) mg/dL Glucose 114 H (74-99) mg/dL POC Glucose (mg/dL) 168 H (75-99) mg/dL Total Protein 5.4 L (6.3-8.2) g/dL Albumin 2.8 L (3.5-5.0) g/dL Microbiology - Last 24 Hours (Table) 12/06/18 09:18 Blood Culture - Preliminary Blood No Growth after 96 hours 12/06/18 09:15 Blood Culture - Preliminary Blood No Growth after 96 hours Assessment and Plan Assessment: 1. Acute aspiration pneumonia, leading to acute hypoxic respiratory failure, requiring intubation and mechanical ventilation. . Patient also on Solu- Medrol 60 mg every 6 hours. Per pulmonary services Lasix has been increased to 40 twice a day. Repeat chest x-ray completed showing continued changes of mild- to-moderate CHF with pulmonary vascular congestion. Small to moderate pleural effusions with adjacent atelectasis and consolidation. Patient remains on IV Lasix. She has been switched to oral prednisone per pulmonary. 2. Acute sepsis secondary to pneumonia. Patient remains off pressors. Lactic acid 5.3. Repeat 3.0 Blood culture currently growing Staphylococcus epidermidis. Dr. Robins has been consulted for infectious disease. remains on vancomycin. per infectious disease there is no need for line placement at this point for antibiotics 3. Severe complete third-degree high-grade AV block. Patient did have TVP in place. TVP has been pulled per cardiology services. discussed case with cardiology [employer] Prerna machado. No plans at this time for patient to Permanent pacemaker placed. Patient has been cleared from cardiology services 4. Fluid overload and generalized anasarca. Maintained IV Lasix 5. Lactic acidosis secondary due to due to poor perfusion and cardiogenic shock 6. Hyponatremia. Improving to 134 7. Acute renal failure stage III. Creatinine increasing to 1.19 and bun 32. Lasix IV has been changed over to by mouth. 8. History of essential hypertension 9. History of osteoarthritis 10. History of anxiety and depression 11. Hyperglycemia due to steroids. Patient placed on sliding scale steroid coverage. Hemoglobin A1c 6.4 from 11/26/2018 12. Hypercapnia. CO2 elevated at 46. Will add Diamox 250 by mouth twice a day for 3 days Patient will likely need ECF placement upon discharge social work and physical therapy consulted Patient's daughter currently in process of obtaining guardianship DVT prophylaxis heparin. GI prophylaxis pepcid I performed an examination of the patient and discussed their management with the Nurse Practitioner. I have reviewed the Nurse Practitioner's notes and agree with the documented findings and plan of care
[2018-12-11 12:02] LABS: Glucose,Whole Blood 155 mg/dL (75-99)
[2018-12-11 16:40] LABS: Glucose,Whole Blood 311 mg/dL (75-99)
--- NOTE | 2018-12-11 16:46 | P.CONS ---
History of Present Illness - Chief Complaint Medical debility - History of Present Illness I had the opportunity to see patient for inpatient rehab consultation with regard to medical debility. She was admitted to [facility] November 26 with nausea and dehydration. Seen by Dr. Mcnamara who notes AV disassociation, third-degree AV block. Seen by Dr. Diaz for intensive care. Seen by Dr. JorgeA vazquez for possible gastroenteritis. Chest x-rays followed for cardiomegaly, mild CHF, pleural effusions and atelectasis. PT reports two- person total assistance for bed mobility transfers and standing. OT reports maximal assistance for upper dressing and two-person total assist for lower dressing. Maximal to total assistance for bathing and two-person maximal assistance functional body and transfers. Patient unable to assist with toileting. Patient is aware of this. Previous functional history as elicited from patient: 73-year-old right-handed white female who is and now his last 2 homes. She describes independent with cooking, laundry, driving, prior to admission. Was doing a standing shower and gait with standard cane. Reports was take care of her mother as well as her [id number]. Dr. Loomis is regular doctor. Patient has history of smoking and is very rare glass of wine with sister. Review of Systems Review of systems: ENT: Denies sneezes or discharge. Eyes: Denies discharge or photophobia. Cardiac: Denies chest pain or palpitation. Pulmonary: Denies cough or shortness of breath. Breast: Denies discharge or lumps. Gastrointestinal: Mild nausea or resolved. Genitourinary: Inability to control urination. Musculoskeletal: Denies muscle or bone aches. Neurologic: Generalized weakness. Endocrine: Denies shakes or sweats. Oncology: Denies cancers. Dermatologic: Denies rash, itching, pruritus. ALLERGY/immunology: Denies sneezes, rashes. 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 History of Any Multi-Drug Resistant Organisms: None Reported Past Surgical History: Cholecystectomy, Tonsillectomy Past Anesthesia/Blood Transfusion Reactions: No Reported Reaction Past Psychological History: Anxiety, Depression Smoking Status: Former smoker Past Alcohol Use History: None Reported Past Drug Use History: None Reported - Past Family History Mother Family Medical History: Asthma Additional Family Medical History / Comment(s): depression Father Additional Family Medical History / Comment(s): ETOH Medications and Allergies Home Medications Medication Instructions Recorded Confirmed Type Albuterol Nebulized [Ventolin 2.5 mg INHALATION RT-DAILY 03/22/17 11/25/18 History Nebulized] Aspirin EC [Ecotrin Low Dose] 81 mg PO HS 03/22/17 11/25/18 History Dexamethasone [Hexadrol] 2 mg PO DAILY 03/22/17 11/25/18 History Ergocalciferol [Vitamin D2 50,000 unit PO MO 03/22/17 11/25/18 History (DRISDOL)] Furosemide [Lasix] 40 mg PO DAILY 03/22/17 11/25/18 History Montelukast [Singulair] 10 mg PO DAILY 03/22/17 11/25/18 History Nitroglycerin Sl Tabs [Nitrostat] 0.4 mg SUBLINGUAL Q5M PRN 03/22/17 11/25/18 History levETIRAcetam [Keppra] 500 mg PO BID 03/22/17 11/25/18 History Furosemide [Lasix] 20 mg PO HS 07/29/17 11/25/18 History ALPRAZolam [Xanax] 0.25 mg PO BID PRN 03/24/18 11/25/18 History Esomeprazole Magnesium [NexIUM] 40 mg PO BID 03/24/18 11/25/18 History Folic Acid 1 mg PO DAILY 03/24/18 11/25/18 History DULoxetine HCL [Cymbalta] 30 mg PO DAILY 11/25/18 11/25/18 History buPROPion HCL [Wellbutrin Sr] 100 mg PO DAILY 11/25/18 11/25/18 History Allergies Allergy/AdvReac Type Severity Reaction Status Date / Time Penicillins Allergy Rash/Hives Verified 11/25/18 08:13 Physical Exam Vitals: Vital Signs Temp Pulse Pulse Resp BP Pulse Ox Pulse Ox 12/11/18 16:09 75 12/11/18 16:00 98 17 12/11/18 15:58 74 12/11/18 15:00 97.1 F L 98 17 124/75 97 12/11/18 12:09 72 12/11/18 12:00 74 12/11/18 08:30 96 12/11/18 08:00 81 18 12/11/18 07:31 72 12/11/18 07:22 74 12/11/18 03:13 97.5 F L 81 18 131/81 98 12/10/18 22:20 98 F 93 16 137/79 97 12/10/18 21:25 80 12/10/18 20:57 82 Intake and Output 12/11/18 12/11/18 12/11/18 06:59 14:59 22:59 Intake Total 10 780 250 Output Total 1000 300 Balance 10 -220 -50 Intake: IV 10 20 10 Invasive Line 8 20 10 Sodium Chloride 0.9% 1, 10 000 ml @ 20 mls/hr IV . Q24H [facility] Rx#:[id number] Oral 760 240 Output: Urine 1000 300 Other: Voiding Method Bedside Commode Bedpan Bedpan Bedpan Diaper Diaper Diaper # Voids 1 1 # Bowel Movements 2 Weight 118.7 kg Skin: Good color, texture, turgor. General: Morbidly obese and comfortable appearance. Head: Normocephalic, atraumatic. Eyes: Symmetric. Pupils equal round. Ears: Symmetric. Hearing within normal limits. Mouth: Clear. Neck: Supple. Carotid without bruit. Cardiac: Regular rate and rhythm. Lungs: Clear anteriorly and posteriorly. Abdomen: Soft active nontender. Obese. Extremities: Normal tone. Neurological: Mental status: Alert, cooperative, pleasant. Cranial nerves: Symmetric facial tone and trapezius. Motor: Can elevate all limbs but legs are at best 2/5 in arms are 3+ over 5. Sensation: Intact throughout. DTRs: Symmetric and equal throughout. Mobility: Requires two-person assistance for any functional mobility. Results CBC & Chem 7: 12/11/18 05:57 12/11/18 05:57 Labs: Abnormal Lab Results - Last 24 Hours (Table) 12/10/18 12/11/18 12/11/18 Range/Units 20:26 05:35 05:57 WBC 12.5 H (3.8-10.6) k/uL RBC 3.33 L (3.80-5.40) m/uL Hgb 9.4 L (11.4-16.0) gm/dL Hct 29.5 L (34.0-46.0) % Neutrophils # 10.5 H (1.3-7.7) k/uL Lymphocytes # 0.9 L (1.0-4.8) k/uL Sodium (137-145) mmol/L Chloride (98-107) mmol/L Carbon Dioxide (22-30) mmol/L BUN (7-17) mg/dL Creatinine (0.52-1.04) mg/dL Glucose (74-99) mg/dL POC Glucose (mg/dL) 243 H 168 H (75-99) mg/dL Total Protein (6.3-8.2) g/dL Albumin (3.5-5.0) g/dL 12/11/18 12/11/18 12/11/18 Range/Units 05:57 11:54 16:38 WBC (3.8-10.6) k/uL RBC (3.80-5.40) m/uL Hgb (11.4-16.0) gm/dL Hct (34.0-46.0) % Neutrophils # (1.3-7.7) k/uL Lymphocytes # (1.0-4.8) k/uL Sodium 135 L (137-145) mmol/L Chloride 86 L (98-107) mmol/L Carbon Dioxide 46 H* (22-30) mmol/L BUN 32 H (7-17) mg/dL Creatinine 1.19 H (0.52-1.04) mg/dL Glucose 114 H (74-99) mg/dL POC Glucose (mg/dL) 155 H 311 H (75-99) mg/dL Total Protein 5.4 L (6.3-8.2) g/dL Albumin 2.8 L (3.5-5.0) g/dL Microbiology - Last 24 Hours (Table) 12/06/18 09:18 Blood Culture - Preliminary Blood No Growth after 120 hours 12/06/18 09:15 Blood Culture - Preliminary Blood No Growth after 120 hours Assessment and Plan (1) Nausea vomiting and diarrhea Current Visit: Yes Status: Acute Code(s): R11.2 - NAUSEA WITH VOMITING, UNSPECIFIED; R19.7 - DIARRHEA, UNSPECIFIED SNOMED Code(s): 0741769 (2) Left bundle branch block Current Visit: No Status: Acute Code(s): I44.7 - LEFT BUNDLE-BRANCH BLOCK, UNSPECIFIED SNOMED Code(s): 53164693 Plan: Impression: 1. Medical debility. 2. Nausea with dehydration. 3. Brain meningioma. 4. Morbid obesity. 5. AV block. 6. Hypertension. 7. Sleep apnea with CPAP. 8. Osteoarthritis. 9. Asthma. Comments and plan: At this time PT and OT are ongoing. Rehab prognosis currently guarded. Patient currently requires strong to person physical assistance for any self-care tasks and mobility. Should begin to consider ECF placement.
[2018-12-11] MEDS: FUROSEMIDE 40 MG TAB PO SCH (17:30)
[2018-12-11 20:46] LABS: Glucose,Whole Blood 220 mg/dL (75-99)
[2018-12-11] MEDS: ACETAMINOPHEN TAB 500 MG TAB PO PRN (20:56)
[2018-12-11] MEDS: acetaZOLAMIDE 250 MG TAB PO SCH (21:35)
--- NOTE | 2018-12-11 23:46 | PN ---
PROGRESS NOTE DATE OF SERVICE: 12/11/2018 REASON FOR FOLLOWUP: Urinary tract infection. INTERVAL HISTORY: The patient is afebrile. The patient remains pleasantly confused. She is breathing comfortably. No chest pain. Occasional cough. No abdominal pain. No diarrhea. PHYSICAL EXAMINATION: Blood pressure is 124/75 with a pulse of 98, temperature of 98. She is 97% on room air. General description is an elderly female lying in bed in no distress. RESPIRATORY SYSTEM: Unlabored breathing. Clear to auscultation anteriorly. HEART: S1, S2. Regular rate and rhythm. ABDOMEN: Soft. No tenderness. SKIN EXAMINATION: Multiple bruises. LABS: Hemoglobin 9.4, white count of 12.5 with a BUN of 32, creatinine 1.19. DIAGNOSTIC IMPRESSION AND PLAN: 1. Patient with gram-negative pneumonia that has been adequately treated. 2. Patient with an elevated white count, more likely secondary to urinary tract infection, urine with [place] albicans. Patient is currently covered with Diflucan; to continue to finish a seven-day course of therapy. Continue with supportive care. MMODL / IJN: [id number] /
[2018-12-12] MEDS: POTASSIUM CHLORIDE ER 20 MEQ TAB.ER PO SCH ×2 (01:41→03:15)
[2018-12-12] MEDS: SYMBICORT 160-4.5 MCG INHALER INHALATION SCH ×2 (07:00→20:43)
[2018-12-12] MEDS: ALBUTEROL NEBULIZED 2.5 MG/3 ML INHALATION SCH ×4 (07:00→20:43)
[2018-12-12 07:19] LABS: Glucose,Whole Blood 177 mg/dL (75-99)
[2018-12-12] MEDS: INSULIN ASPART 100 UNIT/ML 1 ML 10 ML VIAL SQ SCH ×7 (07:36→20:57)
[2018-12-12] MEDS: SODIUM CHLORIDE 0.9% 1,000 ML IV SCH (08:30)
[2018-12-12] MEDS: FLUCONAZOLE 100 MG TAB PO SCH (08:31)
[2018-12-12] MEDS: predniSONE 20 MG TAB PO SCH (08:31)
[2018-12-12] MEDS: FAMOTIDINE 20 MG TAB PO SCH (08:31)
[2018-12-12] MEDS: FUROSEMIDE 40 MG TAB PO SCH (08:31)
[2018-12-12] MEDS: MONTELUKAST 10 MG TAB PO SCH (08:31)
[2018-12-12] MEDS: HEPARIN SODIUM,PORCINE 5,000 UNIT/ML 1 ML VIAL SQ SCH ×2 (08:32→21:00)
[2018-12-12] MEDS: ACETAMINOPHEN TAB 500 MG TAB PO PRN (09:02)
[2018-12-12 09:27] LABS: Basophils % (A) 0 %; Eosinophils # (A) 0.1 k/uL (0-0.7); Eosinophils % (A) 1 %; HGB 10.1 gm/dL (11.4-16.0); Hypochromasia Slight; Lymphocytes # (A) 1.1 k/uL (1.0-4.8); Lymphocytes % (A) 10 %; MCH 27.2 pg (25.0-35.0); MCHC 30.5 g/dL (31.0-37.0); MCV 89.1 fL (80.0-100.0); Mean Platelet Volume 7.2; Monocytes # (A) 0.5 k/uL (0-1.0); Monocytes % (A) 5 %; Neutrophils # (A) 8.8 k/uL (1.3-7.7); Neutrophils % (A) 83 %; Platelet Count 387 k/uL (150-450); RDW 14.4 % (11.5-15.5); WBC 10.6 k/uL (3.8-10.6)
[2018-12-12] MEDS: buPROPion SR 100 MG TABLET.ER PO SCH (09:55)
[2018-12-12] MEDS: DULoxetine HCL 30 MG CAPSULE.DR PO SCH (09:57)
[2018-12-12] MEDS: levETIRAcetam 500 MG TAB PO SCH ×2 (09:57→21:05)
[2018-12-12] MEDS: acetaZOLAMIDE 250 MG TAB PO SCH ×2 (09:58→20:57)
[2018-12-12 10:03] LABS: Albumin 3.1 g/dL (3.5-5.0); Calcium 8.7 mg/dL (8.4-10.2); Potassium 3.9 mmol/L (3.5-5.1); Total Bilirubin 0.5 mg/dL (0.2-1.3); Total Protein 5.7 g/dL (6.3-8.2)
--- NOTE | 2018-12-12 10:58 | P.PN ---
Subjective Progress Note Date: 12/12/18 73-year-old female who was seen evaluated examined on medical floor, this patient admitted into the hospital earlier this morning with problems associated with nauseous feeling and nasopharyngeal swab for influenza A and B were both negative, her symptoms started a day before she has not been taking able to take anything by mouth she is not taking her home medication as well, patient has been having looser stool as well overall symptoms appeared to be like gastroenteritis however no bloody diarrhea has been noted, patient denies any emesis denies any abdominal pain and on specific questioning denies any chest pain or radiation of pain, she does have a history of COPD and chronic persistent asthma, patient also has a history of hypertension hypertensive cardiovascular disease and advanced steroid-dependent rheumatoid arthritis, she has not been formally evaluated for sleep disorder breathing and sleep apnea, on medical floor patient was found to be bradycardic which was a significant change compared to her admit vitals, patient was however hemodynamically stable but due to significant bradycardia transferred to the selective care/ICU if no bed is available consult with cardiology has been also initiated, they felt that patient to be monitored and observed dopamine/dopamine and check agents were not initiated as patient was hemodynamically stable and bradycardia thought to be related to exaggerated vagal response, review of the data also revealed that patient is hyponatremic, initial EKG revealed sinus tachycardia with left bundle branch block and currently developed high degree AV block, patient failed to capture external pacemaker eventually due to severe restlessness and significant bradycardia was intubated and cardiovascular services took her to the Lab at transvenous temporary pacemaker has been inserted through the groin, and A-line has been inserted by the anesthesia, patient only has a single lumen groin catheter through which transvenous pacemaker is present being infused with 10 mics of levo fed as well as dopamine to keep map around 65-70 patient is on full ventilator support initially patient was place on assist control rate of 20 tidal volume of 505 of PEEP 100% oxygen now rate is being cut down to 14 PEEP is 5 FiO2 Is Lowered down to 50%, 11/26/2018 patient seen eval reexamined during the rounds clinically patient remains sedated with propofol drip currently patient is on 20 mics able to come down however hemodynamic status remains marginal, patient require 100% pacing as without heart rate drops down to less than 30, patient is also on levo fed drip 35 mics, and dopamine drip 10 mics, currently maintenance IV fluids 50 mL an hour being given, patient has been found to be hypokalemic potassium has been replaced, chest x-ray revealed a possible developing left lower lobe infiltrate cannot be excluded along with small effusion, on assist control rate of 12 breathing 12 tidal volume of 500, with PEEP of 5, FiO2 is down to 40%, chest x-ray reviewed laboratory data reviewed, critical care time spent 40 minutes 11/27/2018, patient seen eval examined during the rounds clinically patient is slightly improving terms of hemodynamics, the heart block has improvement, heart rate spontaneous is in 60s to 70s, blood pressure map remains over 60-70, patient however remains on dopamine which has been titrated down to 2 mics, the levo fed has been lowered down to 6 mics as well, patient is 15 mics of propofol she is arousable does open eyes, she remains on full vent setting with assist control 12 breathing 12 tidal volume is 500, PEEP is 5, oxygen is down to 40%, chest x-ray laboratory data reviewed, blood cultures appears to be contamination as coag-negative staph has been noted, ID service has been consulted, care plan discussed with the staff at length, cardiovascular services recommendations reviewed, critical care time spent 35 minutes 11/28/2018, patient seen eval examined during rounds clinically is now off of vasopressors dopamine levo fed has been discontinued, patient has been on assist control mode switched over to CPAP 5 pressure support of 10, patient is monitor and observe on the pressure support and CPAP, spontaneous tidal volume at 300 range respiratory rate in the low 20s, saturation remains 90%, patient is still somnolent but arousable, will plan to have extended weaning for one hour and then will check arterial blood gas which was reviewed as well patient tolerated the CPAP pressure trial and very well is being extubated, otherwise patient remains afebrile respiratory secretions stable labs x-rays and radiographic studies reviewed, patient appears to have component of anasarca 40 mg of Lasix IVs does being given will put patient on daily IV furosemide as well , critical care time spent 35 minutes 11/29/2018, patient seen eval reexamined during the rounds she has been successfully weaned and active extubated she is on supplemental oxygen very weak though, patient is still have a temperature transvenous pacemaker, which is set at 40, patient is back to her sinus rhythm, patient does have a history of sleep disorder breathing and sleep apnea as per discussion with the daughter she does not use her CPAP machine very regularly, I have educated them extensively at, patient remains on broad-spectrum antibiotics labs reviewed medications reviewed radiographic studies reviewed as well, chest x-ray revealed a small pleural effusion with right basal infiltrate cardiomegaly stable triple-lumen catheter 12/01/2018. Patient remains in the intensive care unit. Patient currently on 4 L. temporary pacemaker has been removed per cardiology services. Heart rate has remained stable. At this time patient denies any chest pain or shortness breath. Patient denies nausea vomiting or diarrhea. Patient denies any urinary burning or frequency on 12/02/2018 patient remains in the intensive care unit. Patient is currently sleeping with BiPAP in place. Patient's heart rate has remained within normal limits. At this time patient denies chest pain or shortness of breath. Patient denies nausea vomiting or diarrhea. Patient denies any urinary burning or frequency. Per nursing staff patient did have a bout of confusion throughout night which is not the first occurrence On 12/03/2018 patient does appear more alert than yesterday. Patient does have increased upper respiratory wheezing. Chest x-ray ordered per critical care team. At this time patient denies chest pain or shortness breath. Patient denies nausea vomiting or diarrhea. Patient denies any urinary burning or frequency. On 12/04/2018 patient is awake and alert. Patient's expiratory wheezing does sound improved. At this time patient denies chest pain or shortness of breath. Patient denies nausea vomiting or diarrhea. Patient denies any urinary burning or frequency On 12/05/2018 patient is alert and awake eating breakfast in bed. Per nursing staff patient is a bit more confused today. CO2 is up to 40. Per nursing staff patient did not consistently wear BiPAP throughout night. At this time patient denies chest pain or shortness of breath. Patient denies nausea vomiting or diarrhea. Patient denies any urinary burning or frequency. On 12/06/2018 patient was seen and examined in ICU she required BiPAP throughout the night she is alert and oriented in no apparent distress currently she is maintained on nasal cannula she is still complaining of cough and shortness of breath she denies any chest pain or there is no fever or chills no nausea or vomiting no abdominal pain no diarrhea and no urinary symptoms. On 12/07/2018 patient is alert and oriented 3 in no apparent distress currently maintained on nasal cannula she was able to wear BiPAP throughout the night she states she feels better shortness of breath is improving there is occasional cough she denies any pain or discomfort there is no fever or chills no chest pain no nausea or vomiting no abdominal pain no diarrhea and no urinary symptoms On 12/08/2018 patient is alert and oriented 3. Patient currently resting comfortably cardiac care unit. At this time patient denies chest pain or shortness breath. Patient denies nausea vomiting or diarrhea. Patient denies any urinary burning or frequency on 12/09/2018 patient has a bit more confused today. CO2 is elevated at 41. Pulmonary services are following. At this time patient denies chest pain or shortness of breath. Patient denies nausea vomiting or diarrhea. Patient denies any urinary burning or frequency On 12/10/2018 patient remains confused. Pulmonary services are following. Patient's daughter in process of gaining guardianship. At this time patient denies chest pain or shortness of breath. Patient denies nausea vomiting or diarrhea. Patient denies any urinary burning or frequency. On 12/11/2018 patient remains confused. Discussed case with case management associate. Daughter next of kin is trying to get guardianship for patient to go to rehab. At this time patient denies chest pain or shortness breath. Patient denies nausea vomiting or diarrhea. Patient denies any urinary burning or frequency. Creatinine increasing. Will change IV Lasix over to by mouth. CO2 also high at 46. Will add Diamox 250 mg by mouth twice a day for 3 days. On 12/12/2018 patient remains confused. Discussed case with social scientist Vent[place]. At this time patient refusing any local ECF placement. Requesting to be transferred to [place] rehab or patient wants to go to surgery. Per social scientist rehab at [place] has declined placement. Patient's daughter also in process of obtaining a court-appointed guardian for her mother. CO2 has improved to 40. Creatinine increasing to 1.28. Objective - Vital Signs Vital signs: Vital Signs Temp 97.8 F 12/12/18 08:27 Pulse 96 12/12/18 08:27 Resp 20 12/12/18 08:27 BP 127/79 12/12/18 08:27 Pulse Ox 96 12/12/18 08:27 Intake & Output 12/11/18 12/12/18 12/12/18 18:59 06:59 18:59 Intake Total 1290 640 Output Total 1300 Balance -10 640 Weight 118.7 kg 79.5 kg Intake: IV 30 Invasive Line 8 30 Oral 1260 640 Output: Urine 1300 Other: Voiding Method Bedpan Diaper # Voids 1 1 # Bowel Movements 2 1 ABP, PAP, CO, CI - Last Documented Arterial Blood Pressure 117/67 - Exam Head normocephalic Neck supple Lungs diminished bilaterally with expiratory wheezing Heart regular rate and rhythm S1-S2, no rub or gallop Abdomen is soft nontender nondistended positive bowel sounds no hepatosplenomegaly Extremities no edema - Labs CBC & Chem 7: 12/12/18 08:17 12/12/18 08:17 Labs: Abnormal Lab Results - Last 24 Hours (Table) 12/11/18 12/11/18 12/11/18 Range/Units 11:54 16:38 20:45 RBC (3.80-5.40) m/uL Hgb (11.4-16.0) gm/dL Hct (34.0-46.0) % MCHC (31.0-37.0) g/dL Neutrophils # (1.3-7.7) k/uL Sodium (137-145) mmol/L Chloride (98-107) mmol/L Carbon Dioxide (22-30) mmol/L BUN (7-17) mg/dL Creatinine (0.52-1.04) mg/dL Glucose (74-99) mg/dL POC Glucose (mg/dL) 155 H 311 H 220 H (75-99) mg/dL Total Protein (6.3-8.2) g/dL Albumin (3.5-5.0) g/dL 12/12/18 12/12/18 12/12/18 Range/Units 07:18 08:17 08:17 RBC 3.70 L (3.80-5.40) m/uL Hgb 10.1 L (11.4-16.0) gm/dL Hct 33.0 L (34.0-46.0) % MCHC 30.5 L (31.0-37.0) g/dL Neutrophils # 8.8 H (1.3-7.7) k/uL Sodium 135 L (137-145) mmol/L Chloride 86 L (98-107) mmol/L Carbon Dioxide 40 H (22-30) mmol/L BUN 35 H (7-17) mg/dL Creatinine 1.28 H (0.52-1.04) mg/dL Glucose 185 H (74-99) mg/dL POC Glucose (mg/dL) 177 H (75-99) mg/dL Total Protein 5.7 L (6.3-8.2) g/dL Albumin 3.1 L (3.5-5.0) g/dL Microbiology - Last 24 Hours (Table) 12/06/18 09:18 Blood Culture - Preliminary Blood No Growth after 120 hours 12/06/18 09:15 Blood Culture - Preliminary Blood No Growth after 120 hours Assessment and Plan Assessment: 1. Acute aspiration pneumonia, leading to acute hypoxic respiratory failure, requiring intubation and mechanical ventilation. . Patient also on Solu- Medrol 60 mg every 6 hours. Per pulmonary services Lasix has been increased to 40 twice a day. Repeat chest x-ray completed showing continued changes of mild- to-moderate CHF with pulmonary vascular congestion. Small to moderate pleural effusions with adjacent atelectasis and consolidation. Per infectious disease patient has been added was quickly treated for gram-negative pneumonia. Patient remains on Diflucan for her Siena albicans in her urine which she is to continue with a seven-day course of therapy 2. Acute sepsis secondary to pneumonia. Patient remains off pressors. Lactic acid 5.3. Repeat 3.0 Blood culture currently growing Staphylococcus epidermidis. Dr. Robins has been consulted for infectious disease. remains on vancomycin. per infectious disease there is no need for line placement at this point for antibiotics 3. Severe complete third-degree high-grade AV block. Patient did have TVP in place. TVP has been pulled per cardiology services. discussed case with cardiology [employer] MA[employer] Prerna machado. No plans at this time for patient to Permanent pacemaker placed. Patient has been cleared from cardiology services 4. Fluid overload and generalized anasarca. Currently on by mouth Lasix 5. Lactic acidosis secondary due to due to poor perfusion and cardiogenic shock 6. Hyponatremia. Improving to 134 7. Acute renal failure stage III. Creatinine increasing to 1.19 and bun 32. Lasix IV has been changed over to by mouth. 8. History of essential hypertension 9. History of osteoarthritis 10. History of anxiety and depression 11. Hyperglycemia due to steroids. Patient placed on sliding scale steroid coverage. Hemoglobin A1c 6.4 from 11/26/2018 12. Hypercapnia. CO2 elevated at 46. Will add Diamox 250 by mouth twice a day for 3 days. Repeat CO2 level 40 13. History of brain meningioma. Discussed case with social scientist [place]. At this time patient is refusing any local ECF placement. Patient requesting rehab at [place] or patient wants to go to [place]. Legal guardianship is in process. Per social scientist patient has been declining for inpatient rehab at [place]. Patient was evaluated by Dr. Han for inpatient rehab. recommending ECF placement DVT prophylaxis heparin. GI prophylaxis pepcid I performed an examination of the patient and discussed their management with the Nurse Practitioner. I have reviewed the Nurse Practitioner's notes and agree with the documented findings and plan of care
[2018-12-12 12:16] LABS: Glucose,Whole Blood 179 mg/dL (75-99)
[2018-12-12] MEDS: FOLIC ACID 1 MG TAB PO SCH (12:34)
[2018-12-12] MEDS: ALPRAZolam 0.25 MG TAB PO PRN ×2 (15:18→21:05)
--- NOTE | 2018-12-12 15:53 | PN ---
PROGRESS NOTE DATE OF SERVICE: 12/12/2018 REASON FOR FOLLOWUP: Urinary tract infection. INTERVAL HISTORY: The patient is currently afebrile. She is awake, alert, breathing comfortably. Denies having any chest pain or cough. No abdominal pain or any diarrhea. She is upset Social Work getting a guardian for her. PHYSICAL EXAMINATION: Blood pressure is 127/79 with a pulse of 93, temperature 97.8. She is 96% on 3 L nasal cannula. General description is an elderly female up in the chair in no distress. RESPIRATORY SYSTEM: Unlabored breathing. Clear to auscultation anteriorly. HEART: S1, S2. Regular rate and rhythm. ABDOMEN: Soft. No tenderness. LABS: Hemoglobin is 10.1, white count of 10.6, BUN of 35, creatinine 1.28. DIAGNOSTIC IMPRESSION AND PLAN: 1. Patient with gram-negative pneumonia that has been adequately treated. 2. Positive blood with Staphylococcus epidermidis, likely contamination. Follow-up blood culture has been negative. 3. Patient with elevated white count. Source is likely catheter-associated urinary tract infection. Urine with Siena albicans. Patient is responding to oral Diflucan, to continue for another 3 to 5 days to finish course of therapy. Continue with supportive care. MMODL / IJN: [id number] /
[2018-12-12 17:04] LABS: Glucose,Whole Blood 242 mg/dL (75-99)
[2018-12-12 20:13] LABS: Glucose,Whole Blood 189 mg/dL (75-99)
[2018-12-13] MEDS: ACETAMINOPHEN TAB 500 MG TAB PO PRN ×3 (01:20→15:50)
[2018-12-13 07:20] LABS: Glucose,Whole Blood 144 mg/dL (75-99)
[2018-12-13] MEDS: HEPARIN SODIUM,PORCINE 5,000 UNIT/ML 1 ML VIAL SQ SCH ×2 (08:31→21:17)
[2018-12-13] MEDS: FOLIC ACID 1 MG TAB PO SCH (08:31)
[2018-12-13] MEDS: INSULIN ASPART 100 UNIT/ML 1 ML 10 ML VIAL SQ SCH ×7 (08:31→21:17)
[2018-12-13] MEDS: FUROSEMIDE 40 MG TAB PO SCH (08:31)
[2018-12-13] MEDS: MONTELUKAST 10 MG TAB PO SCH (08:32)
[2018-12-13] MEDS: acetaZOLAMIDE 250 MG TAB PO SCH ×2 (08:32→21:18)
[2018-12-13] MEDS: FLUCONAZOLE 100 MG TAB PO SCH (08:32)
[2018-12-13] MEDS: FAMOTIDINE 20 MG TAB PO SCH (08:32)
[2018-12-13] MEDS: levETIRAcetam 500 MG TAB PO SCH ×2 (08:32→21:18)
[2018-12-13] MEDS: DEXAMETHASONE 2 MG TAB PO SCH (08:33)
[2018-12-13] MEDS: DULoxetine HCL 30 MG CAPSULE.DR PO SCH (08:33)
[2018-12-13] MEDS: SODIUM CHLORIDE 0.9% 1,000 ML IV SCH (08:33)
[2018-12-13] MEDS: buPROPion SR 100 MG TABLET.ER PO SCH (08:33)
[2018-12-13] MEDS: ALBUTEROL NEBULIZED 2.5 MG/3 ML INHALATION SCH ×4 (08:39→20:56)
[2018-12-13] MEDS: SYMBICORT 160-4.5 MCG INHALER INHALATION SCH ×2 (08:39→20:56)
[2018-12-13] MEDS: ALPRAZolam 0.25 MG TAB PO PRN ×2 (08:45→21:38)
[2018-12-13 08:49] LABS: Basophils % (A) 0 %; Eosinophils # (A) 0.1 k/uL (0-0.7); Eosinophils % (A) 1 %; HCT 33.8 % (34.0-46.0); HGB 10.4 gm/dL (11.4-16.0); Hypochromasia Slight; Lymphocytes # (A) 1.2 k/uL (1.0-4.8); Lymphocytes % (A) 9 %; MCH 27.7 pg (25.0-35.0); MCHC 30.7 g/dL (31.0-37.0); MCV 90.2 fL (80.0-100.0); Mean Platelet Volume 7.1; Monocytes # (A) 0.8 k/uL (0-1.0); Monocytes % (A) 6 %; Neutrophils # (A) 10.5 k/uL (1.3-7.7); Neutrophils % (A) 83 %; Platelet Count 451 k/uL (150-450); RBC 3.75 m/uL (3.80-5.40); RDW 14.5 % (11.5-15.5); WBC 12.8 k/uL (3.8-10.6)
[2018-12-13 08:52] LABS: Albumin 3.4 g/dL (3.5-5.0); Calcium 9.3 mg/dL (8.4-10.2); Potassium 4.1 mmol/L (3.5-5.1); Total Bilirubin 0.6 mg/dL (0.2-1.3); Total Protein 6.2 g/dL (6.3-8.2)
[2018-12-13 09:36] LABS: Glucose,Whole Blood 179 mg/dL (75-99)
[2018-12-13 12:13] LABS: Glucose,Whole Blood 108 mg/dL (75-99)
--- NOTE | 2018-12-13 13:53 | P.PN ---
Subjective Progress Note Date: 12/13/18 73-year-old female who was seen evaluated examined on medical floor, this patient admitted into the hospital earlier this morning with problems associated with nauseous feeling and nasopharyngeal swab for influenza A and B were both negative, her symptoms started a day before she has not been taking able to take anything by mouth she is not taking her home medication as well, patient has been having looser stool as well overall symptoms appeared to be like gastroenteritis however no bloody diarrhea has been noted, patient denies any emesis denies any abdominal pain and on specific questioning denies any chest pain or radiation of pain, she does have a history of COPD and chronic persistent asthma, patient also has a history of hypertension hypertensive cardiovascular disease and advanced steroid-dependent rheumatoid arthritis, she has not been formally evaluated for sleep disorder breathing and sleep apnea, on medical floor patient was found to be bradycardic which was a significant change compared to her admit vitals, patient was however hemodynamically stable but due to significant bradycardia transferred to the selective care/ICU if no bed is available consult with cardiology has been also initiated, they felt that patient to be monitored and observed dopamine/dopamine and check agents were not initiated as patient was hemodynamically stable and bradycardia thought to be related to exaggerated vagal response, review of the data also revealed that patient is hyponatremic, initial EKG revealed sinus tachycardia with left bundle branch block and currently developed high degree AV block, patient failed to capture external pacemaker eventually due to severe restlessness and significant bradycardia was intubated and cardiovascular services took her to the Lab at transvenous temporary pacemaker has been inserted through the groin, and A-line has been inserted by the anesthesia, patient only has a single lumen groin catheter through which transvenous pacemaker is present being infused with 10 mics of levo fed as well as dopamine to keep map around 65-70 patient is on full ventilator support initially patient was place on assist control rate of 20 tidal volume of 505 of PEEP 100% oxygen now rate is being cut down to 14 PEEP is 5 FiO2 Is Lowered down to 50%, 11/26/2018 patient seen eval reexamined during the rounds clinically patient remains sedated with propofol drip currently patient is on 20 mics able to come down however hemodynamic status remains marginal, patient require 100% pacing as without heart rate drops down to less than 30, patient is also on levo fed drip 35 mics, and dopamine drip 10 mics, currently maintenance IV fluids 50 mL an hour being given, patient has been found to be hypokalemic potassium has been replaced, chest x-ray revealed a possible developing left lower lobe infiltrate cannot be excluded along with small effusion, on assist control rate of 12 breathing 12 tidal volume of 500, with PEEP of 5, FiO2 is down to 40%, chest x-ray reviewed laboratory data reviewed, critical care time spent 40 minutes 11/27/2018, patient seen eval examined during the rounds clinically patient is slightly improving terms of hemodynamics, the heart block has improvement, heart rate spontaneous is in 60s to 70s, blood pressure map remains over 60-70, patient however remains on dopamine which has been titrated down to 2 mics, the levo fed has been lowered down to 6 mics as well, patient is 15 mics of propofol she is arousable does open eyes, she remains on full vent setting with assist control 12 breathing 12 tidal volume is 500, PEEP is 5, oxygen is down to 40%, chest x-ray laboratory data reviewed, blood cultures appears to be contamination as coag-negative staph has been noted, ID service has been consulted, care plan discussed with the staff at length, cardiovascular services recommendations reviewed, critical care time spent 35 minutes 11/28/2018, patient seen eval examined during rounds clinically is now off of vasopressors dopamine levo fed has been discontinued, patient has been on assist control mode switched over to CPAP 5 pressure support of 10, patient is monitor and observe on the pressure support and CPAP, spontaneous tidal volume at 300 range respiratory rate in the low 20s, saturation remains 90%, patient is still somnolent but arousable, will plan to have extended weaning for one hour and then will check arterial blood gas which was reviewed as well patient tolerated the CPAP pressure trial and very well is being extubated, otherwise patient remains afebrile respiratory secretions stable labs x-rays and radiographic studies reviewed, patient appears to have component of anasarca 40 mg of Lasix IVs does being given will put patient on daily IV furosemide as well , critical care time spent 35 minutes 11/29/2018, patient seen eval reexamined during the rounds she has been successfully weaned and active extubated she is on supplemental oxygen very weak though, patient is still have a temperature transvenous pacemaker, which is set at 40, patient is back to her sinus rhythm, patient does have a history of sleep disorder breathing and sleep apnea as per discussion with the daughter she does not use her CPAP machine very regularly, I have educated them extensively at, patient remains on broad-spectrum antibiotics labs reviewed medications reviewed radiographic studies reviewed as well, chest x-ray revealed a small pleural effusion with right basal infiltrate cardiomegaly stable triple-lumen catheter 12/01/2018. Patient remains in the intensive care unit. Patient currently on 4 L. temporary pacemaker has been removed per cardiology services. Heart rate has remained stable. At this time patient denies any chest pain or shortness breath. Patient denies nausea vomiting or diarrhea. Patient denies any urinary burning or frequency on 12/02/2018 patient remains in the intensive care unit. Patient is currently sleeping with BiPAP in place. Patient's heart rate has remained within normal limits. At this time patient denies chest pain or shortness of breath. Patient denies nausea vomiting or diarrhea. Patient denies any urinary burning or frequency. Per nursing staff patient did have a bout of confusion throughout night which is not the first occurrence On 12/03/2018 patient does appear more alert than yesterday. Patient does have increased upper respiratory wheezing. Chest x-ray ordered per critical care team. At this time patient denies chest pain or shortness breath. Patient denies nausea vomiting or diarrhea. Patient denies any urinary burning or frequency. On 12/04/2018 patient is awake and alert. Patient's expiratory wheezing does sound improved. At this time patient denies chest pain or shortness of breath. Patient denies nausea vomiting or diarrhea. Patient denies any urinary burning or frequency On 12/05/2018 patient is alert and awake eating breakfast in bed. Per nursing staff patient is a bit more confused today. CO2 is up to 40. Per nursing staff patient did not consistently wear BiPAP throughout night. At this time patient denies chest pain or shortness of breath. Patient denies nausea vomiting or diarrhea. Patient denies any urinary burning or frequency. On 12/06/2018 patient was seen and examined in ICU she required BiPAP throughout the night she is alert and oriented in no apparent distress currently she is maintained on nasal cannula she is still complaining of cough and shortness of breath she denies any chest pain or there is no fever or chills no nausea or vomiting no abdominal pain no diarrhea and no urinary symptoms. On 12/07/2018 patient is alert and oriented 3 in no apparent distress currently maintained on nasal cannula she was able to wear BiPAP throughout the night she states she feels better shortness of breath is improving there is occasional cough she denies any pain or discomfort there is no fever or chills no chest pain no nausea or vomiting no abdominal pain no diarrhea and no urinary symptoms On 12/08/2018 patient is alert and oriented 3. Patient currently resting comfortably cardiac care unit. At this time patient denies chest pain or shortness breath. Patient denies nausea vomiting or diarrhea. Patient denies any urinary burning or frequency on 12/09/2018 patient has a bit more confused today. CO2 is elevated at 41. Pulmonary services are following. At this time patient denies chest pain or shortness of breath. Patient denies nausea vomiting or diarrhea. Patient denies any urinary burning or frequency On 12/10/2018 patient remains confused. Pulmonary services are following. Patient's daughter in process of gaining guardianship. At this time patient denies chest pain or shortness of breath. Patient denies nausea vomiting or diarrhea. Patient denies any urinary burning or frequency. On 12/11/2018 patient remains confused. Discussed case with lead case manager. Daughter next of kin is trying to get guardianship for patient to go to rehab. At this time patient denies chest pain or shortness breath. Patient denies nausea vomiting or diarrhea. Patient denies any urinary burning or frequency. Creatinine increasing. Will change IV Lasix over to by mouth. CO2 also high at 46. Will add Diamox 250 mg by mouth twice a day for 3 days. On 12/12/2018 patient remains confused. Discussed case with clinical social work aide [place]. At this time patient refusing any local ECF placement. Requesting to be transferred to [facility] or patient wants to go to surgery. Per clinical social work aide rehab at [facility] has declined placement. Patient's daughter also in process of obtaining a court-appointed guardian for her mother. CO2 has improved to 40. Creatinine increasing to 1.28. On 12/13/2018 patient is currently resting in chair. Patient denies any complaints at this time. Patient denies nausea vomiting or diarrhea. Patient denies chest pain or shortness breath. Patient denies any urinary burning or frequency. Creatinine is continuing to increase to 1.48 despite decreasing Lasix down to 40 mg daily. Objective - Vital Signs Vital signs: Vital Signs Temp 98.2 F 12/13/18 07:18 Pulse 88 12/13/18 12:57 Resp 16 12/13/18 07:18 BP 123/73 12/13/18 07:18 Pulse Ox 91 L 12/13/18 07:18 Intake & Output 12/12/18 12/13/18 12/13/18 18:59 06:59 18:59 Intake Total 0 240 226 Balance 0 240 226 Weight 113.9 kg Intake: IV 0 Sodium Chloride 0.9% 1, 0 000 ml @ 20 mls/hr IV . Q24H HEIKE Rx#:[id number] Intake, IV Titration 0 Amount Sodium Chloride 0.9% 1, 0 000 ml @ 20 mls/hr IV . Q24H [facility]IKE Rx#:[id number] Oral 240 226 Other: Voiding Method Toilet Toilet Diaper Diaper # Voids 2 2 3 # Bowel Movements 1 1 ABP, PAP, CO, CI - Last Documented Arterial Blood Pressure 117/67 - Exam Head normocephalic Neck supple Lungs diminished bilaterally with expiratory wheezing Heart regular rate and rhythm S1-S2, no rub or gallop Abdomen is soft nontender nondistended positive bowel sounds no hepatosplenomegaly Extremities no edema - Labs CBC & Chem 7: 12/13/18 08:04 12/13/18 08:04 Labs: Abnormal Lab Results - Last 24 Hours (Table) 12/12/18 12/12/18 12/13/18 Range/Units 17:02 20:11 07:19 WBC (3.8-10.6) k/uL RBC (3.80-5.40) m/uL Hgb (11.4-16.0) gm/dL Hct (34.0-46.0) % MCHC (31.0-37.0) g/dL Plt Count (150-450) k/uL Neutrophils # (1.3-7.7) k/uL Sodium (137-145) mmol/L Chloride (98-107) mmol/L Carbon Dioxide (22-30) mmol/L BUN (7-17) mg/dL Creatinine (0.52-1.04) mg/dL Glucose (74-99) mg/dL POC Glucose (mg/dL) 242 H 189 H 144 H (75-99) mg/dL Total Protein (6.3-8.2) g/dL Albumin (3.5-5.0) g/dL 12/13/18 12/13/18 12/13/18 Range/Units 08:04 08:04 09:34 WBC 12.8 H (3.8-10.6) k/uL RBC 3.75 L (3.80-5.40) m/uL Hgb 10.4 L (11.4-16.0) gm/dL Hct 33.8 L (34.0-46.0) % MCHC 30.7 L (31.0-37.0) g/dL Plt Count 451 H (150-450) k/uL Neutrophils # 10.5 H (1.3-7.7) k/uL Sodium 136 L (137-145) mmol/L Chloride 89 L (98-107) mmol/L Carbon Dioxide 40 H (22-30) mmol/L BUN 30 H (7-17) mg/dL Creatinine 1.48 H (0.52-1.04) mg/dL Glucose 138 H (74-99) mg/dL POC Glucose (mg/dL) 179 H (75-99) mg/dL Total Protein 6.2 L (6.3-8.2) g/dL Albumin 3.4 L (3.5-5.0) g/dL 12/13/18 Range/Units 12:12 WBC (3.8-10.6) k/uL RBC (3.80-5.40) m/uL Hgb (11.4-16.0) gm/dL Hct (34.0-46.0) % MCHC (31.0-37.0) g/dL Plt Count (150-450) k/uL Neutrophils # (1.3-7.7) k/uL Sodium (137-145) mmol/L Chloride (98-107) mmol/L Carbon Dioxide (22-30) mmol/L BUN (7-17) mg/dL Creatinine (0.52-1.04) mg/dL Glucose (74-99) mg/dL POC Glucose (mg/dL) 108 H (75-99) mg/dL Total Protein (6.3-8.2) g/dL Albumin (3.5-5.0) g/dL Microbiology - Last 24 Hours (Table) 12/06/18 09:15 Blood Culture - Final Blood No Growth after 144 hours 12/06/18 09:18 Blood Culture - Final Blood No Growth after 144 hours Assessment and Plan Assessment: 1. Acute aspiration pneumonia, leading to acute hypoxic respiratory failure, requiring intubation and mechanical ventilation. . Patient also on Solu- Medrol 60 mg every 6 hours. Per pulmonary services Lasix has been increased to 40 twice a day. Repeat chest x-ray completed showing continued changes of mild- to-moderate CHF with pulmonary vascular congestion. Small to moderate pleural effusions with adjacent atelectasis and consolidation. Per infectious disease patient has been added was quickly treated for gram-negative pneumonia. Patient remains on Diflucan for her [place] albicans in her urine which she is to continue with a seven-day course of therapy 2. Acute sepsis secondary to pneumonia. Patient remains off pressors. Lactic acid 5.3. Repeat 3.0 Blood culture currently growing Staphylococcus epidermidis. Dr. Robins has been consulted for infectious disease. remains on vancomycin. per infectious disease there is no need for line placement at this point for antibiotics 3. Severe complete third-degree high-grade AV block. Patient did have TVP in place. TVP has been pulled per cardiology services. discussed case with cardiology ACCOUNTING LECTURER Prerna machado. No plans at this time for patient to Permanent pacemaker placed. Patient has been cleared from cardiology services 4. Fluid overload and generalized anasarca. Currently on by mouth Lasix 5. Lactic acidosis secondary due to due to poor perfusion and cardiogenic shock 6. Hyponatremia. Improving to 134 7. Acute renal failure stage III. Creatinine increasing to 1.19 and bun 32. Lasix IV has been changed over to by mouth. Creatinine increasing to 1.48. Lasix has been decreased to once daily 8. History of essential hypertension 9. History of osteoarthritis 10. History of anxiety and depression 11. Hyperglycemia due to steroids. Patient placed on sliding scale steroid coverage. Hemoglobin A1c 6.4 from 11/26/2018 12. Hypercapnia. CO2 elevated at 46. Will add Diamox 250 by mouth twice a day for 3 days. Repeat CO2 level 40 13. History of brain meningioma. Discussed case with clinical social work aide [place]. At this time patient is refusing any local ECF placement. Patient requesting rehab at [facility] or patient wants to go to [place]. Legal guardianship is in process. Per clinical social work aide patient has been declining for inpatient rehab at [facility]. Patient was evaluated by Dr. Han for inpatient rehab. recommending ECF placement DVT prophylaxis heparin. GI prophylaxis pepcid I performed an examination of the patient and discussed their management with the Nurse Practitioner. I have reviewed the Nurse Practitioner's notes and agree with the documented findings and plan of care
[2018-12-13 16:58] LABS: Glucose,Whole Blood 285 mg/dL (75-99)
[2018-12-13] MEDS ORDERED: INSULIN ASPART 100 UNIT/ML 1 ML 10 ML VIAL SQ ONE (17:25)
[2018-12-13 20:15] LABS: Glucose,Whole Blood 180 mg/dL (75-99)
[2018-12-14 07:17] LABS: Glucose,Whole Blood 170 mg/dL (75-99)
[2018-12-14 07:27] LABS: Basophils % (A) 0 %; Eosinophils # (A) 0.1 k/uL (0-0.7); Eosinophils % (A) 1 %; HCT 30.4 % (34.0-46.0); HGB 9.1 gm/dL (11.4-16.0); Hypochromasia Moderate; Lymphocytes # (A) 0.9 k/uL (1.0-4.8); Lymphocytes % (A) 8 %; MCH 27.2 pg (25.0-35.0); MCV 90.4 fL (80.0-100.0); Mean Platelet Volume 6.4; Monocytes # (A) 0.5 k/uL (0-1.0); Monocytes % (A) 5 %; Neutrophils # (A) 9.4 k/uL (1.3-7.7); Neutrophils % (A) 86 %; Platelet Count 349 k/uL (150-450); RBC 3.36 m/uL (3.80-5.40); RDW 14.4 % (11.5-15.5)
[2018-12-14] MEDS: INSULIN ASPART 100 UNIT/ML 1 ML 10 ML VIAL SQ SCH ×7 (07:30→22:28)
[2018-12-14 07:40] LABS: Calcium 8.8 mg/dL (8.4-10.2); Potassium 3.6 mmol/L (3.5-5.1); Total Bilirubin 0.4 mg/dL (0.2-1.3); Total Protein 5.5 g/dL (6.3-8.2)
[2018-12-14] MEDS: ALBUTEROL NEBULIZED 2.5 MG/3 ML INHALATION SCH ×4 (08:22→19:59)
[2018-12-14] MEDS: SYMBICORT 160-4.5 MCG INHALER INHALATION SCH ×2 (08:22→19:59)
[2018-12-14] MEDS: DULoxetine HCL 30 MG CAPSULE.DR PO SCH (09:06)
[2018-12-14] MEDS: buPROPion SR 100 MG TABLET.ER PO SCH (09:06)
[2018-12-14] MEDS: HEPARIN SODIUM,PORCINE 5,000 UNIT/ML 1 ML VIAL SQ SCH ×2 (09:07→22:29)
[2018-12-14] MEDS: FLUCONAZOLE 100 MG TAB PO SCH (09:07)
[2018-12-14] MEDS: levETIRAcetam 500 MG TAB PO SCH ×2 (09:07→22:28)
[2018-12-14] MEDS: FAMOTIDINE 20 MG TAB PO SCH (09:07)
[2018-12-14] MEDS: FOLIC ACID 1 MG TAB PO SCH (09:07)
[2018-12-14] MEDS: FUROSEMIDE 40 MG TAB PO SCH (09:07)
[2018-12-14] MEDS: MONTELUKAST 10 MG TAB PO SCH (09:07)
[2018-12-14] MEDS: DEXAMETHASONE 2 MG TAB PO SCH (09:07)
[2018-12-14] MEDS: ACETAMINOPHEN TAB 500 MG TAB PO PRN (09:23)
[2018-12-14] MEDS: ALPRAZolam 0.25 MG TAB PO PRN ×2 (09:23→22:28)
[2018-12-14] MEDS: SODIUM CHLORIDE 0.9% 1,000 ML IV SCH (11:15)
[2018-12-14 12:08] LABS: Glucose,Whole Blood 137 mg/dL (75-99)
--- NOTE | 2018-12-14 12:15 | P.PN ---
Subjective Progress Note Date: 12/14/18 73-year-old female who was seen evaluated examined on medical floor, this patient admitted into the hospital earlier this morning with problems associated with nauseous feeling and nasopharyngeal swab for influenza A and B were both negative, her symptoms started a day before she has not been taking able to take anything by mouth she is not taking her home medication as well, patient has been having looser stool as well overall symptoms appeared to be like gastroenteritis however no bloody diarrhea has been noted, patient denies any emesis denies any abdominal pain and on specific questioning denies any chest pain or radiation of pain, she does have a history of COPD and chronic persistent asthma, patient also has a history of hypertension hypertensive cardiovascular disease and advanced steroid-dependent rheumatoid arthritis, she has not been formally evaluated for sleep disorder breathing and sleep apnea, on medical floor patient was found to be bradycardic which was a significant change compared to her admit vitals, patient was however hemodynamically stable but due to significant bradycardia transferred to the selective care/ICU if no bed is available consult with cardiology has been also initiated, they felt that patient to be monitored and observed dopamine/dopamine and check agents were not initiated as patient was hemodynamically stable and bradycardia thought to be related to exaggerated vagal response, review of the data also revealed that patient is hyponatremic, initial EKG revealed sinus tachycardia with left bundle branch block and currently developed high degree AV block, patient failed to capture external pacemaker eventually due to severe restlessness and significant bradycardia was intubated and cardiovascular services took her to the Lab at transvenous temporary pacemaker has been inserted through the groin, and A-line has been inserted by the anesthesia, patient only has a single lumen groin catheter through which transvenous pacemaker is present being infused with 10 mics of levo fed as well as dopamine to keep map around 65-70 patient is on full ventilator support initially patient was place on assist control rate of 20 tidal volume of 505 of PEEP 100% oxygen now rate is being cut down to 14 PEEP is 5 FiO2 Is Lowered down to 50%, 11/26/2018 patient seen eval reexamined during the rounds clinically patient remains sedated with propofol drip currently patient is on 20 mics able to come down however hemodynamic status remains marginal, patient require 100% pacing as without heart rate drops down to less than 30, patient is also on levo fed drip 35 mics, and dopamine drip 10 mics, currently maintenance IV fluids 50 mL an hour being given, patient has been found to be hypokalemic potassium has been replaced, chest x-ray revealed a possible developing left lower lobe infiltrate cannot be excluded along with small effusion, on assist control rate of 12 breathing 12 tidal volume of 500, with PEEP of 5, FiO2 is down to 40%, chest x-ray reviewed laboratory data reviewed, critical care time spent 40 minutes 11/27/2018, patient seen eval examined during the rounds clinically patient is slightly improving terms of hemodynamics, the heart block has improvement, heart rate spontaneous is in 60s to 70s, blood pressure map remains over 60-70, patient however remains on dopamine which has been titrated down to 2 mics, the levo fed has been lowered down to 6 mics as well, patient is 15 mics of propofol she is arousable does open eyes, she remains on full vent setting with assist control 12 breathing 12 tidal volume is 500, PEEP is 5, oxygen is down to 40%, chest x-ray laboratory data reviewed, blood cultures appears to be contamination as coag-negative staph has been noted, ID service has been consulted, care plan discussed with the staff at length, cardiovascular services recommendations reviewed, critical care time spent 35 minutes 11/28/2018, patient seen eval examined during rounds clinically is now off of vasopressors dopamine levo fed has been discontinued, patient has been on assist control mode switched over to CPAP 5 pressure support of 10, patient is monitor and observe on the pressure support and CPAP, spontaneous tidal volume at 300 range respiratory rate in the low 20s, saturation remains 90%, patient is still somnolent but arousable, will plan to have extended weaning for one hour and then will check arterial blood gas which was reviewed as well patient tolerated the CPAP pressure trial and very well is being extubated, otherwise patient remains afebrile respiratory secretions stable labs x-rays and radiographic studies reviewed, patient appears to have component of anasarca 40 mg of Lasix IVs does being given will put patient on daily IV furosemide as well , critical care time spent 35 minutes 11/29/2018, patient seen eval reexamined during the rounds she has been successfully weaned and active extubated she is on supplemental oxygen very weak though, patient is still have a temperature transvenous pacemaker, which is set at 40, patient is back to her sinus rhythm, patient does have a history of sleep disorder breathing and sleep apnea as per discussion with the daughter she does not use her CPAP machine very regularly, I have educated them extensively at, patient remains on broad-spectrum antibiotics labs reviewed medications reviewed radiographic studies reviewed as well, chest x-ray revealed a small pleural effusion with right basal infiltrate cardiomegaly stable triple-lumen catheter 12/01/2018. Patient remains in the intensive care unit. Patient currently on 4 L. temporary pacemaker has been removed per cardiology services. Heart rate has remained stable. At this time patient denies any chest pain or shortness breath. Patient denies nausea vomiting or diarrhea. Patient denies any urinary burning or frequency on 12/02/2018 patient remains in the intensive care unit. Patient is currently sleeping with BiPAP in place. Patient's heart rate has remained within normal limits. At this time patient denies chest pain or shortness of breath. Patient denies nausea vomiting or diarrhea. Patient denies any urinary burning or frequency. Per nursing staff patient did have a bout of confusion throughout night which is not the first occurrence On 12/03/2018 patient does appear more alert than yesterday. Patient does have increased upper respiratory wheezing. Chest x-ray ordered per critical care team. At this time patient denies chest pain or shortness breath. Patient denies nausea vomiting or diarrhea. Patient denies any urinary burning or frequency. On 12/04/2018 patient is awake and alert. Patient's expiratory wheezing does sound improved. At this time patient denies chest pain or shortness of breath. Patient denies nausea vomiting or diarrhea. Patient denies any urinary burning or frequency On 12/05/2018 patient is alert and awake eating breakfast in bed. Per nursing staff patient is a bit more confused today. CO2 is up to 40. Per nursing staff patient did not consistently wear BiPAP throughout night. At this time patient denies chest pain or shortness of breath. Patient denies nausea vomiting or diarrhea. Patient denies any urinary burning or frequency. On 12/06/2018 patient was seen and examined in ICU she required BiPAP throughout the night she is alert and oriented in no apparent distress currently she is maintained on nasal cannula she is still complaining of cough and shortness of breath she denies any chest pain or there is no fever or chills no nausea or vomiting no abdominal pain no diarrhea and no urinary symptoms. On 12/07/2018 patient is alert and oriented 3 in no apparent distress currently maintained on nasal cannula she was able to wear BiPAP throughout the night she states she feels better shortness of breath is improving there is occasional cough she denies any pain or discomfort there is no fever or chills no chest pain no nausea or vomiting no abdominal pain no diarrhea and no urinary symptoms On 12/08/2018 patient is alert and oriented 3. Patient currently resting comfortably cardiac care unit. At this time patient denies chest pain or shortness breath. Patient denies nausea vomiting or diarrhea. Patient denies any urinary burning or frequency on 12/09/2018 patient has a bit more confused today. CO2 is elevated at 41. Pulmonary services are following. At this time patient denies chest pain or shortness of breath. Patient denies nausea vomiting or diarrhea. Patient denies any urinary burning or frequency On 12/10/2018 patient remains confused. Pulmonary services are following. Patient's daughter in process of gaining guardianship. At this time patient denies chest pain or shortness of breath. Patient denies nausea vomiting or diarrhea. Patient denies any urinary burning or frequency. On 12/11/2018 patient remains confused. Discussed case with porter sample case. Daughter next of kin is trying to get guardianship for patient to go to rehab. At this time patient denies chest pain or shortness breath. Patient denies nausea vomiting or diarrhea. Patient denies any urinary burning or frequency. Creatinine increasing. Will change IV Lasix over to by mouth. CO2 also high at 46. Will add Diamox 250 mg by mouth twice a day for 3 days. On 12/12/2018 patient remains confused. Discussed case with health social work professor [place]. At this time patient refusing any local ECF placement. Requesting to be transferred to [facility] or patient wants to go to surgery. Per health social work professor rehab at [facility] has declined placement. Patient's daughter also in process of obtaining a court-appointed guardian for her mother. CO2 has improved to 40. Creatinine increasing to 1.28. On 12/13/2018 patient is currently resting in chair. Patient denies any complaints at this time. Patient denies nausea vomiting or diarrhea. Patient denies chest pain or shortness breath. Patient denies any urinary burning or frequency. Creatinine is continuing to increase to 1.48 despite decreasing Lasix down to 40 mg daily. On 12/14/2018 patient is currently resting comfortably in chair. Denies any complaints at this time. Creatinine pain on normal saline at 50. Patient also is scheduled Lasix down to 40 mg by mouth daily. Patient denies chest pain or shortness breath. Patient denies nausea vomiting or diarrhea. Patient denies any urinary burning or frequency Objective - Vital Signs Vital signs: Vital Signs Temp 98.5 F 12/14/18 07:33 Pulse 80 12/14/18 08:45 Resp 16 12/14/18 07:33 BP 110/68 12/14/18 07:33 Pulse Ox 98 12/14/18 07:33 Intake & Output 12/13/18 12/14/18 12/14/18 18:59 06:59 18:59 Intake Total 588 480 296 Balance 588 480 296 Intake: Oral 588 480 296 Other: Voiding Method Toilet Toilet Toilet Diaper Diaper # Voids 3 3 ABP, PAP, CO, CI - Last Documented Arterial Blood Pressure 117/67 - Exam Head normocephalic Neck supple Lungs diminished bilaterally with expiratory wheezing Heart regular rate and rhythm S1-S2, no rub or gallop Abdomen is soft nontender nondistended positive bowel sounds no hepatosplenomegaly Extremities no edema - Labs CBC & Chem 7: 12/14/18 07:07 12/14/18 07:07 Labs: Abnormal Lab Results - Last 24 Hours (Table) 12/13/18 12/13/18 12/13/18 Range/Units 12:12 16:56 20:14 WBC (3.8-10.6) k/uL RBC (3.80-5.40) m/uL Hgb (11.4-16.0) gm/dL Hct (34.0-46.0) % MCHC (31.0-37.0) g/dL Neutrophils # (1.3-7.7) k/uL Lymphocytes # (1.0-4.8) k/uL Sodium (137-145) mmol/L Chloride (98-107) mmol/L Carbon Dioxide (22-30) mmol/L BUN (7-17) mg/dL Creatinine (0.52-1.04) mg/dL Glucose (74-99) mg/dL POC Glucose (mg/dL) 108 H 285 H 180 H (75-99) mg/dL ALT (9-52) U/L Total Protein (6.3-8.2) g/dL Albumin (3.5-5.0) g/dL 12/14/18 12/14/18 12/14/18 Range/Units 07:07 07:07 07:14 WBC 11.0 H (3.8-10.6) k/uL RBC 3.36 L (3.80-5.40) m/uL Hgb 9.1 L (11.4-16.0) gm/dL Hct 30.4 L (34.0-46.0) % MCHC 30.0 L (31.0-37.0) g/dL Neutrophils # 9.4 H (1.3-7.7) k/uL Lymphocytes # 0.9 L (1.0-4.8) k/uL Sodium 136 L (137-145) mmol/L Chloride 94 L (98-107) mmol/L Carbon Dioxide 38 H (22-30) mmol/L BUN 32 H (7-17) mg/dL Creatinine 1.52 H (0.52-1.04) mg/dL Glucose 175 H (74-99) mg/dL POC Glucose (mg/dL) 170 H (75-99) mg/dL ALT 53 H (9-52) U/L Total Protein 5.5 L (6.3-8.2) g/dL Albumin 3.0 L (3.5-5.0) g/dL 12/14/18 Range/Units 12:07 WBC (3.8-10.6) k/uL RBC (3.80-5.40) m/uL Hgb (11.4-16.0) gm/dL Hct (34.0-46.0) % MCHC (31.0-37.0) g/dL Neutrophils # (1.3-7.7) k/uL Lymphocytes # (1.0-4.8) k/uL Sodium (137-145) mmol/L Chloride (98-107) mmol/L Carbon Dioxide (22-30) mmol/L BUN (7-17) mg/dL Creatinine (0.52-1.04) mg/dL Glucose (74-99) mg/dL POC Glucose (mg/dL) 137 H (75-99) mg/dL ALT (9-52) U/L Total Protein (6.3-8.2) g/dL Albumin (3.5-5.0) g/dL Assessment and Plan Assessment: 1. Acute aspiration pneumonia, leading to acute hypoxic respiratory failure, requiring intubation and mechanical ventilation. . Patient also on Solu- Medrol 60 mg every 6 hours. Per pulmonary services Lasix has been increased to 40 twice a day. Repeat chest x-ray completed showing continued changes of mild- to-moderate CHF with pulmonary vascular congestion. Small to moderate pleural effusions with adjacent atelectasis and consolidation. Per infectious disease patient has been added was quickly treated for gram-negative pneumonia. Patient remains on Diflucan for her Siena albicans in her urine which she is to continue with a seven-day course of therapy 2. Acute sepsis secondary to pneumonia. Patient remains off pressors. Lactic acid 5.3. Repeat 3.0 Blood culture currently growing Staphylococcus epidermidis. Dr. Robins has been consulted for infectious disease. remains on vancomycin. per infectious disease there is no need for line placement at this point for antibiotics 3. Severe complete third-degree high-grade AV block. Patient did have TVP in place. TVP has been pulled per cardiology services. discussed case with cardiology DIRECTOR APPOINTMENT Prerna machado. No plans at this time for patient to Permanent pacemaker placed. Patient has been cleared from cardiology services 4. Fluid overload and generalized anasarca. Currently on by mouth Lasix 5. Lactic acidosis secondary due to due to poor perfusion and cardiogenic shock 6. Hyponatremia. Improving to 134 7. Acute renal failure stage III. Creatinine increasing to 1.19 and bun 32. Lasix IV has been changed over to by mouth. Creatinine increasing to 1.48. Lasix has been decreased to once daily. Creatinine increasing to 1.54. Patient currently on normal saline at 50 8. History of essential hypertension 9. History of osteoarthritis 10. History of anxiety and depression 11. Hyperglycemia due to steroids. Patient placed on sliding scale steroid coverage. Hemoglobin A1c 6.4 from 11/26/2018 12. Hypercapnia. CO2 elevated at 46. Will add Diamox 250 by mouth twice a day for 3 days. Repeat CO2 level 40 13. History of brain meningioma. Discussed case with health social work professor Ryan. At this time patient is refusing any local ECF placement. Patient requesting rehab at [facility] or patient wants to go to [place]. Legal guardianship is in process. Per health social work professor patient has been declining for inpatient rehab at [facility]. Patient was evaluated by Dr. Han for inpatient rehab. recommending ECF placement DVT prophylaxis heparin. GI prophylaxis pepcid I performed an examination of the patient and discussed their management with the Nurse Practitioner. I have reviewed the Nurse Practitioner's notes and agree with the documented findings and plan of care
[2018-12-14 17:10] LABS: Glucose,Whole Blood 249 mg/dL (75-99)
[2018-12-14 20:30] LABS: Glucose,Whole Blood 255 mg/dL (75-99)
[2018-12-14 21:02] LABS: Glucose,Whole Blood 223 mg/dL (75-99)
--- NOTE | 2018-12-15 00:37 | PN ---
PROGRESS NOTE DATE OF SERVICE: 12/14/2018. REASON FOR FOLLOWUP: 1. Gram-negative pneumonia, adequately treated. 2. Catheter associated urinary tract infection adequately treated. INTERVAL HISTORY: The patient is currently afebrile. She is breathing comfortably. Denies having any chest pain or cough. No abdominal pain. No diarrhea. PHYSICAL EXAMINATION: Blood pressure 152/89, pulse of 95, temperature 97.9. She is 100% on 2 L nasal cannula. General description is an elderly female up in the chair in no distress. Respiratory system: Unlabored breathing: Clear to auscultation anteriorly. Heart S1, S2. Regular rate and rhythm. ABDOMEN: Soft. No tenderness. LABS: BUN of 32, creatinine 1.5, white count [id number]. DIAGNOSTIC IMPRESSION AND PLAN: 1. Patient with initial admission to the hospital with pneumonia, likely gram negative that has been adequately treated. 2. Patient with urinary tract infection. Urine with Siena completed her Diflucan. Slightly elevated white count could be more likely due to dehydration prerenal as the patient had elevated BUN and creatinine. We will monitor closely off antibiotic therapy. Continue supportive care. MMODL / IJN: [id number] /
[2018-12-15] MEDS: SODIUM CHLORIDE 0.9% 1,000 ML IV SCH (05:01)
[2018-12-15 07:10] LABS: Glucose,Whole Blood 167 mg/dL (75-99)
[2018-12-15] MEDS: SYMBICORT 160-4.5 MCG INHALER INHALATION SCH ×2 (07:10→19:54)
[2018-12-15] MEDS: ALBUTEROL NEBULIZED 2.5 MG/3 ML INHALATION SCH ×4 (07:10→19:53)
[2018-12-15 07:19] LABS: Basophils % (A) 0 %; Eosinophils % (A) 0 %; HCT 30.4 % (34.0-46.0); HGB 9.4 gm/dL (11.4-16.0); Hypochromasia Slight; Lymphocytes # (A) 0.7 k/uL (1.0-4.8); Lymphocytes % (A) 6 %; MCH 27.7 pg (25.0-35.0); MCV 89.3 fL (80.0-100.0); Mean Platelet Volume 7.2; Monocytes # (A) 0.5 k/uL (0-1.0); Monocytes % (A) 4 %; Neutrophils # (A) 9.8 k/uL (1.3-7.7); Neutrophils % (A) 88 %; Platelet Count 312 k/uL (150-450); RDW 14.6 % (11.5-15.5); WBC 11.1 k/uL (3.8-10.6)
[2018-12-15 07:34] LABS: Albumin 3.1 g/dL (3.5-5.0); Calcium 8.9 mg/dL (8.4-10.2); Potassium 3.7 mmol/L (3.5-5.1); Total Bilirubin 0.4 mg/dL (0.2-1.3); Total Protein 5.6 g/dL (6.3-8.2)
[2018-12-15] MEDS: INSULIN ASPART 100 UNIT/ML 1 ML 10 ML VIAL SQ SCH ×7 (09:45→21:23)
[2018-12-15] MEDS: buPROPion SR 100 MG TABLET.ER PO SCH (11:42)
[2018-12-15] MEDS: FAMOTIDINE 20 MG TAB PO SCH (11:42)
[2018-12-15] MEDS: ERGOCALCIFEROL 50,000 UNIT CAP PO SCH (11:42)
[2018-12-15] MEDS: FLUCONAZOLE 100 MG TAB PO SCH (11:42)
[2018-12-15] MEDS: MONTELUKAST 10 MG TAB PO SCH (11:42)
[2018-12-15] MEDS: levETIRAcetam 500 MG TAB PO SCH ×2 (11:42→21:23)
[2018-12-15] MEDS: DULoxetine HCL 30 MG CAPSULE.DR PO SCH (11:42)
[2018-12-15] MEDS: FUROSEMIDE 40 MG TAB PO SCH (11:43)
[2018-12-15] MEDS: HEPARIN SODIUM,PORCINE 5,000 UNIT/ML 1 ML VIAL SQ SCH ×2 (11:43→21:23)
[2018-12-15] MEDS: DEXAMETHASONE 2 MG TAB PO SCH (11:43)
[2018-12-15 11:52] LABS: Glucose,Whole Blood 126 mg/dL (75-99)
[2018-12-15] MEDS: ACETAMINOPHEN TAB 500 MG TAB PO PRN ×2 (11:57→18:35)
--- NOTE | 2018-12-15 12:28 | P.PN ---
Subjective Progress Note Date: 12/15/18 73-year-old female who was seen evaluated examined on medical floor, this patient admitted into the hospital earlier this morning with problems associated with nauseous feeling and nasopharyngeal swab for influenza A and B were both negative, her symptoms started a day before she has not been taking able to take anything by mouth she is not taking her home medication as well, patient has been having looser stool as well overall symptoms appeared to be like gastroenteritis however no bloody diarrhea has been noted, patient denies any emesis denies any abdominal pain and on specific questioning denies any chest pain or radiation of pain, she does have a history of COPD and chronic persistent asthma, patient also has a history of hypertension hypertensive cardiovascular disease and advanced steroid-dependent rheumatoid arthritis, she has not been formally evaluated for sleep disorder breathing and sleep apnea, on medical floor patient was found to be bradycardic which was a significant change compared to her admit vitals, patient was however hemodynamically stable but due to significant bradycardia transferred to the selective care/ICU if no bed is available consult with cardiology has been also initiated, they felt that patient to be monitored and observed dopamine/dopamine and check agents were not initiated as patient was hemodynamically stable and bradycardia thought to be related to exaggerated vagal response, review of the data also revealed that patient is hyponatremic, initial EKG revealed sinus tachycardia with left bundle branch block and currently developed high degree AV block, patient failed to capture external pacemaker eventually due to severe restlessness and significant bradycardia was intubated and cardiovascular services took her to the Lab at transvenous temporary pacemaker has been inserted through the groin, and A-line has been inserted by the anesthesia, patient only has a single lumen groin catheter through which transvenous pacemaker is present being infused with 10 mics of levo fed as well as dopamine to keep map around 65-70 patient is on full ventilator support initially patient was place on assist control rate of 20 tidal volume of 505 of PEEP 100% oxygen now rate is being cut down to 14 PEEP is 5 FiO2 Is Lowered down to 50%, 11/26/2018 patient seen eval reexamined during the rounds clinically patient remains sedated with propofol drip currently patient is on 20 mics able to come down however hemodynamic status remains marginal, patient require 100% pacing as without heart rate drops down to less than 30, patient is also on levo fed drip 35 mics, and dopamine drip 10 mics, currently maintenance IV fluids 50 mL an hour being given, patient has been found to be hypokalemic potassium has been replaced, chest x-ray revealed a possible developing left lower lobe infiltrate cannot be excluded along with small effusion, on assist control rate of 12 breathing 12 tidal volume of 500, with PEEP of 5, FiO2 is down to 40%, chest x-ray reviewed laboratory data reviewed, critical care time spent 40 minutes 11/27/2018, patient seen eval examined during the rounds clinically patient is slightly improving terms of hemodynamics, the heart block has improvement, heart rate spontaneous is in 60s to 70s, blood pressure map remains over 60-70, patient however remains on dopamine which has been titrated down to 2 mics, the levo fed has been lowered down to 6 mics as well, patient is 15 mics of propofol she is arousable does open eyes, she remains on full vent setting with assist control 12 breathing 12 tidal volume is 500, PEEP is 5, oxygen is down to 40%, chest x-ray laboratory data reviewed, blood cultures appears to be contamination as coag-negative staph has been noted, ID service has been consulted, care plan discussed with the staff at length, cardiovascular services recommendations reviewed, critical care time spent 35 minutes 11/28/2018, patient seen eval examined during rounds clinically is now off of vasopressors dopamine levo fed has been discontinued, patient has been on assist control mode switched over to CPAP 5 pressure support of 10, patient is monitor and observe on the pressure support and CPAP, spontaneous tidal volume at 300 range respiratory rate in the low 20s, saturation remains 90%, patient is still somnolent but arousable, will plan to have extended weaning for one hour and then will check arterial blood gas which was reviewed as well patient tolerated the CPAP pressure trial and very well is being extubated, otherwise patient remains afebrile respiratory secretions stable labs x-rays and radiographic studies reviewed, patient appears to have component of anasarca 40 mg of Lasix IVs does being given will put patient on daily IV furosemide as well , critical care time spent 35 minutes 11/29/2018, patient seen eval reexamined during the rounds she has been successfully weaned and active extubated she is on supplemental oxygen very weak though, patient is still have a temperature transvenous pacemaker, which is set at 40, patient is back to her sinus rhythm, patient does have a history of sleep disorder breathing and sleep apnea as per discussion with the daughter she does not use her CPAP machine very regularly, I have educated them extensively at, patient remains on broad-spectrum antibiotics labs reviewed medications reviewed radiographic studies reviewed as well, chest x-ray revealed a small pleural effusion with right basal infiltrate cardiomegaly stable triple-lumen catheter 12/01/2018. Patient remains in the intensive care unit. Patient currently on 4 L. temporary pacemaker has been removed per cardiology services. Heart rate has remained stable. At this time patient denies any chest pain or shortness breath. Patient denies nausea vomiting or diarrhea. Patient denies any urinary burning or frequency on 12/02/2018 patient remains in the intensive care unit. Patient is currently sleeping with BiPAP in place. Patient's heart rate has remained within normal limits. At this time patient denies chest pain or shortness of breath. Patient denies nausea vomiting or diarrhea. Patient denies any urinary burning or frequency. Per nursing staff patient did have a bout of confusion throughout night which is not the first occurrence On 12/03/2018 patient does appear more alert than yesterday. Patient does have increased upper respiratory wheezing. Chest x-ray ordered per critical care team. At this time patient denies chest pain or shortness breath. Patient denies nausea vomiting or diarrhea. Patient denies any urinary burning or frequency. On 12/04/2018 patient is awake and alert. Patient's expiratory wheezing does sound improved. At this time patient denies chest pain or shortness of breath. Patient denies nausea vomiting or diarrhea. Patient denies any urinary burning or frequency On 12/05/2018 patient is alert and awake eating breakfast in bed. Per nursing staff patient is a bit more confused today. CO2 is up to 40. Per nursing staff patient did not consistently wear BiPAP throughout night. At this time patient denies chest pain or shortness of breath. Patient denies nausea vomiting or diarrhea. Patient denies any urinary burning or frequency. On 12/06/2018 patient was seen and examined in ICU she required BiPAP throughout the night she is alert and oriented in no apparent distress currently she is maintained on nasal cannula she is still complaining of cough and shortness of breath she denies any chest pain or there is no fever or chills no nausea or vomiting no abdominal pain no diarrhea and no urinary symptoms. On 12/07/2018 patient is alert and oriented 3 in no apparent distress currently maintained on nasal cannula she was able to wear BiPAP throughout the night she states she feels better shortness of breath is improving there is occasional cough she denies any pain or discomfort there is no fever or chills no chest pain no nausea or vomiting no abdominal pain no diarrhea and no urinary symptoms On 12/08/2018 patient is alert and oriented 3. Patient currently resting comfortably cardiac care unit. At this time patient denies chest pain or shortness breath. Patient denies nausea vomiting or diarrhea. Patient denies any urinary burning or frequency on 12/09/2018 patient has a bit more confused today. CO2 is elevated at 41. Pulmonary services are following. At this time patient denies chest pain or shortness of breath. Patient denies nausea vomiting or diarrhea. Patient denies any urinary burning or frequency On 12/10/2018 patient remains confused. Pulmonary services are following. Patient's daughter in process of gaining guardianship. At this time patient denies chest pain or shortness of breath. Patient denies nausea vomiting or diarrhea. Patient denies any urinary burning or frequency. On 12/11/2018 patient remains confused. Discussed case with patient case manager. Daughter next of kin is trying to get guardianship for patient to go to rehab. At this time patient denies chest pain or shortness breath. Patient denies nausea vomiting or diarrhea. Patient denies any urinary burning or frequency. Creatinine increasing. Will change IV Lasix over to by mouth. CO2 also high at 46. Will add Diamox 250 mg by mouth twice a day for 3 days. On 12/12/2018 patient remains confused. Discussed case with group social worker [place]. At this time patient refusing any local ECF placement. Requesting to be transferred to [place] rehab or patient wants to go to surgery. Per group social worker rehab at [place] has declined placement. Patient's daughter also in process of obtaining a court-appointed guardian for her mother. CO2 has improved to 40. Creatinine increasing to 1.28. On 12/13/2018 patient is currently resting in chair. Patient denies any complaints at this time. Patient denies nausea vomiting or diarrhea. Patient denies chest pain or shortness breath. Patient denies any urinary burning or frequency. Creatinine is continuing to increase to 1.48 despite decreasing Lasix down to 40 mg daily. On 12/14/2018 patient is currently resting comfortably in chair. Denies any complaints at this time. Creatinine pain on normal saline at 50. Patient also is scheduled Lasix down to 40 mg by mouth daily. Patient denies chest pain or shortness breath. Patient denies nausea vomiting or diarrhea. Patient denies any urinary burning or frequency 12/15/2018 patient is currently sitting up in chair. Patient reports that she is feeling slight improvement with her weakness. Discussed case with group social worker Sheryl. Legal guardianship hearing tomorrow. Discharge currently on hold until legal guardianship is established. Per nephrology normal saline has been DC'd. Creatinine improving. At this time patient denies chest pain or shortness breath. Patient denies nausea vomiting or diarrhea. Patient denies any urinary burning or frequency. Objective - Vital Signs Vital signs: Vital Signs Temp 99.0 F 12/14/18 23:36 Pulse 76 12/15/18 11:00 Resp 16 12/14/18 23:36 BP 134/82 12/14/18 23:36 Pulse Ox 97 12/14/18 23:36 Intake & Output 12/14/18 12/15/18 12/15/18 18:59 06:59 18:59 Intake Total 1188 640 Balance 1188 640 Weight 114 kg Intake: IV 400 Sodium Chloride 0.9% 1, 400 000 ml @ 50 mls/hr IV . Q20H [facility] Rx#:[id number] Oral 1188 240 Other: Voiding Method Toilet Toilet # Voids 3 3 1 ABP, PAP, CO, CI - Last Documented Arterial Blood Pressure 117/67 - Exam Head normocephalic Neck supple Lungs diminished bilaterally with expiratory wheezing Heart regular rate and rhythm S1-S2, no rub or gallop Abdomen is soft nontender nondistended positive bowel sounds no hepatosplenomegaly Extremities no edema - Labs CBC & Chem 7: 12/15/18 06:40 12/15/18 06:40 Labs: Abnormal Lab Results - Last 24 Hours (Table) 12/14/18 12/14/18 12/14/18 Range/Units 17:08 20:29 21:01 WBC (3.8-10.6) k/uL RBC (3.80-5.40) m/uL Hgb (11.4-16.0) gm/dL Hct (34.0-46.0) % Neutrophils # (1.3-7.7) k/uL Lymphocytes # (1.0-4.8) k/uL Carbon Dioxide (22-30) mmol/L BUN (7-17) mg/dL Creatinine (0.52-1.04) mg/dL Glucose (74-99) mg/dL POC Glucose (mg/dL) 249 H 255 H 223 H (75-99) mg/dL Total Protein (6.3-8.2) g/dL Albumin (3.5-5.0) g/dL 12/15/18 12/15/18 12/15/18 Range/Units 06:40 06:40 07:07 WBC 11.1 H (3.8-10.6) k/uL RBC 3.40 L (3.80-5.40) m/uL Hgb 9.4 L (11.4-16.0) gm/dL Hct 30.4 L (34.0-46.0) % Neutrophils # 9.8 H (1.3-7.7) k/uL Lymphocytes # 0.7 L (1.0-4.8) k/uL Carbon Dioxide 34 H (22-30) mmol/L BUN 31 H (7-17) mg/dL Creatinine 1.37 H (0.52-1.04) mg/dL Glucose 164 H (74-99) mg/dL POC Glucose (mg/dL) 167 H (75-99) mg/dL Total Protein 5.6 L (6.3-8.2) g/dL Albumin 3.1 L (3.5-5.0) g/dL 12/15/18 Range/Units 11:41 WBC (3.8-10.6) k/uL RBC (3.80-5.40) m/uL Hgb (11.4-16.0) gm/dL Hct (34.0-46.0) % Neutrophils # (1.3-7.7) k/uL Lymphocytes # (1.0-4.8) k/uL Carbon Dioxide (22-30) mmol/L BUN (7-17) mg/dL Creatinine (0.52-1.04) mg/dL Glucose (74-99) mg/dL POC Glucose (mg/dL) 126 H (75-99) mg/dL Total Protein (6.3-8.2) g/dL Albumin (3.5-5.0) g/dL Assessment and Plan Assessment: 1. Acute aspiration pneumonia, leading to acute hypoxic respiratory failure, requiring intubation and mechanical ventilation. . Patient also on Solu- Medrol 60 mg every 6 hours. Per pulmonary services Lasix has been increased to 40 twice a day. Repeat chest x-ray completed showing continued changes of mild- to-moderate CHF with pulmonary vascular congestion. Small to moderate pleural effusions with adjacent atelectasis and consolidation. Per infectious disease patient has been added was quickly treated for gram-negative pneumonia. Patient remains on Diflucan for her Siena albicans in her urine which she is to continue with a seven-day course of therapy 2. Acute sepsis secondary to pneumonia. Patient remains off pressors. Lactic acid 5.3. Repeat 3.0 Blood culture currently growing Staphylococcus epidermidis. Dr. Robins has been consulted for infectious disease. remains on vancomycin. per infectious disease there is no need for line placement at this point for antibiotics 3. Severe complete third-degree high-grade AV block. Patient did have TVP in place. TVP has been pulled per cardiology services. discussed case with cardiology MARKETING RESEARCHER Prerna machado. No plans at this time for patient to Permanent pacemaker placed. Patient has been cleared from cardiology services 4. Fluid overload and generalized anasarca. Currently on by mouth Lasix 5. Lactic acidosis secondary due to due to poor perfusion and cardiogenic shock 6. Hyponatremia. Improving to 134 7. Acute renal failure stage III. Creatinine increasing to 1.19 and bun 32. Lasix IV has been changed over to by mouth. Creatinine increasing to 1.48. Lasix has been decreased to once daily. Creatinine increasing to 1.54. Nephrology services are following. Creatinine down to 1.37. Saline has been DC 'd 8. History of essential hypertension 9. History of osteoarthritis 10. History of anxiety and depression 11. Hyperglycemia due to steroids. Patient placed on sliding scale steroid coverage. Hemoglobin A1c 6.4 from 11/26/2018 12. Hypercapnia. CO2 elevated at 46. Resolved CO2 34 13. History of brain meningioma. Discussed case with group social worker Ryan. At this time patient is refusing any local ECF placement. Patient requesting rehab at [place] or patient wants to go to [place]. Legal guardianship is in process. Per group social worker patient has been declined for inpatient rehab at [place]. Patient was evaluated by Dr. Han for inpatient rehab. recommending ECF placement Legal guardianship hearing scheduled for 12/16/2018. Discharge currently on hold until legal guardianship is established DVT prophylaxis heparin. GI prophylaxis pepcid I performed an examination of the patient and discussed their management with the Nurse Practitioner. I have reviewed the Nurse Practitioner's notes and agree with the documented findings and plan of care
[2018-12-15] MEDS: FOLIC ACID 1 MG TAB PO SCH (13:31)
--- NOTE | 2018-12-15 15:29 | CONS ---
CONSULTATION REASON FOR CONSULT: Renal failure. HISTORY OF PRESENT ILLNESS: Patient is a 75-year-old female who was initially admitted to the hospital on 11/25/2018 with nausea, vomiting and diarrhea. Patient had a left bundle branch block with high-degree AV block. She also had cardiac catheterization done on 11/25/2018. Since then, patient is being treated for CHF, volume overload. She also had aspiration pneumonia and is maintained on antibiotics. Blood pressure has not been significantly low. Patient has not received any further IV contrast. Ejection fraction was noted to be 50%-55%. Serum creatinine was as low as 0.64 on initial admission. It increased to 1.5 yesterday and today it is down to 1.37. Patient is maintained on oral Lasix. She is also currently on IV fluids at 50 mL an hour. Patient has been voiding. I do not see a Mcgovern catheter. PAST MEDICAL HISTORY: Significant for hypertension, diastolic heart failure, asthma, osteoarthritis, obstructive sleep apnea, osteoporosis. Also significant for anxiety, depression. PAST SURGICAL HISTORY: Cholecystectomy, tonsillectomy. SOCIAL HISTORY: Patient is a former smoker. No history of drug abuse or alcohol abuse. MEDICATIONS: At home prior to admission included aspirin, updraft treatment, Lasix, singular, Keppra, Nexium, Cymbalta, Wellbutrin 40, folic acid. ALLERGIES: Include PENICILLIN which causes rash and hives. REVIEW OF SYSTEMS: As per HPI. Other systems negative. PHYSICAL EXAMINATION: Patient is comfortable, awake, not in any acute distress. Blood pressure was 154/83, heart rate 76 per minute, she is afebrile. Examination of the heart, S1, S2. Examination of the lungs, bilateral breath sounds are heard. Abdomen is soft, nontender. Examination of the lower extremities shows bilateral edema with chronic skin changes. LABS: Show sodium 137, potassium 3.7, BUN 31, serum creatinine 1.37, hemoglobin 9.4 g/dL. ASSESSMENT: 1. Acute kidney injury, multifactorial, associated with contrast nephropathy. However, renal function had improved and creatinine started to increase again. We need to rule out urine retention. Blood pressure is not been low and patient is not on any nephrotoxic medications currently. I will discontinue the IV fluids, given the hyperkalemia. We can continue with the oral Lasix and will check a postvoid residual. An ultrasound of the kidneys will be ordered as well. 2. Aspiration pneumonia which required intubation and mechanical ventilation, currently improving. 3. Volume overload, continue with Lasix, discontinue IV fluids. 4. Complete heart block, status post cardiac catheterization. Patient did have a temporary pacemaker, which is now removed. PLAN: DC IV fluids. Continue with Lasix. Check postvoid residual and repeat labs in a.m. Also check an ultrasound of the kidneys and repeat urinalysis. Thank you for this consultation. Will continue to follow the patient with you during her hospitalization. MMODL / IJN: [id number] /
[2018-12-15 17:29] LABS: Glucose,Whole Blood 219 mg/dL (75-99)
--- NOTE | 2018-12-15 20:37 | PN ---
PROGRESS NOTE DATE OF SERVICE: 12/15/2018. REASON FOR FOLLOWUP: Urinary tract infection. INTERVAL HISTORY: The patient is currently afebrile. She has been breathing comfortably, hemodynamically stable. No nausea, vomiting. No abdominal pain. No diarrhea. PHYSICAL EXAMINATION: Blood pressure 119/69 with a pulse of 83, temperature 98.4. She is 100% on 2 L nasal cannula. General description is an elderly female up in the chair in no distress. Respiratory system: Unlabored breathing. Clear to auscultation anteriorly. Heart S1, S2. Regular rate and rhythm. Abdomen soft, no tenderness. LABS: Hemoglobin 9.4, white count 11.1 with BUN of 31, creatinine 1.78. DIAGNOSTIC IMPRESSION AND PLAN: 1. Patient admitted to the hospital with gram-negative pneumoniae that has been adequately treated. 2. Patient with urinary tract infection. Urine with Siena. Diflucan can be discontinued as of tomorrow's dose as she received about 10 days that should be more than enough. 3. Continue to monitor clinical course closely. 4. Continue supportive care. MMODL / IJN: [id number] /
[2018-12-15 20:47] LABS: Glucose,Whole Blood 264 mg/dL (75-99)
[2018-12-15] MEDS: ALPRAZolam 0.25 MG TAB PO PRN (21:33)
[2018-12-15] MEDS: SENNOSIDES 8.6 MG TAB PO PRN (21:36)
--- NOTE | 2018-12-16 00:27 | US ---
EXAMINATION TYPE: US renals and bladder DATE OF EXAM: 12/15/2018 COMPARISON: NONE CLINICAL HISTORY: rf. Nausea hyponatremis chf renal failure. EXAM MEASUREMENTS: Right Kidney: 9.2 x 4.9 x 4.7 cm Left Kidney: 10.3 x 4.8 x 4.2 cm Right Kidney: Cortical thinning. Left Kidney: Ill defined borders. Cortical thinning. Hypoechoic area lower pole 1.3 x 1.2 x 1.6cm. Bladder: Anechoic Bilateral Jets seen: No There is no evidence for hydronephrosis at this point in time. No nephrolithiasis is seen. The urina ry bladder is anechoic. IMPRESSION: Renal atrophy. No hydronephrosis. There is probably a 1.5 cm cyst lower pole of the left kidney. No e vidence of a solid renal mass.
[2018-12-16] MEDS: ACETAMINOPHEN TAB 500 MG TAB PO PRN ×2 (02:00→10:55)
[2018-12-16 03:22] LABS: Appearance,Urine Clear (Clear); Bilirubin,Urine Negative (Negative); Blood,Urine Negative (Negative); Color,Urine Light Yellow; Glucose,Urine (UA) Negative (Negative); Ketones,Urine Negative (Negative); Leukocyte Esterase,Urine Negative (Negative); Nitrite,Urine Negative (Negative); PH, Urine 6.5 (5.0-8.0); Protein,Urine Negative (Negative); Specific Gravity,Urine 1.005 (1.001-1.035); Urobilinogen,Urine <2.0 mg/dL (<2.0)
[2018-12-16 07:38] LABS: Glucose,Whole Blood 130 mg/dL (75-99)
[2018-12-16] MEDS: INSULIN ASPART 100 UNIT/ML 1 ML 10 ML VIAL SQ SCH ×7 (07:46→23:08)
[2018-12-16 08:41] LABS: Basophils % (A) 0 %; Eosinophils # (A) 0.1 k/uL (0-0.7); Eosinophils % (A) 1 %; HCT 30.5 % (34.0-46.0); HGB 9.6 gm/dL (11.4-16.0); Lymphocytes # (A) 0.9 k/uL (1.0-4.8); Lymphocytes % (A) 8 %; MCH 27.8 pg (25.0-35.0); MCHC 31.5 g/dL (31.0-37.0); MCV 88.5 fL (80.0-100.0); Mean Platelet Volume 6.7; Monocytes # (A) 0.5 k/uL (0-1.0); Monocytes % (A) 4 %; Neutrophils # (A) 9.9 k/uL (1.3-7.7); Neutrophils % (A) 86 %; Platelet Count 375 k/uL (150-450); RBC 3.45 m/uL (3.80-5.40); RDW 14.7 % (11.5-15.5); WBC 11.5 k/uL (3.8-10.6)
[2018-12-16 08:49] LABS: Albumin 3.3 g/dL (3.5-5.0); Potassium 3.8 mmol/L (3.5-5.1); Total Bilirubin 0.5 mg/dL (0.2-1.3)
[2018-12-16] MEDS: SYMBICORT 160-4.5 MCG INHALER INHALATION SCH ×2 (09:25→19:58)
[2018-12-16] MEDS: ALBUTEROL NEBULIZED 2.5 MG/3 ML INHALATION SCH ×4 (09:25→19:58)
[2018-12-16] MEDS: DULoxetine HCL 30 MG CAPSULE.DR PO SCH (10:49)
[2018-12-16] MEDS: levETIRAcetam 500 MG TAB PO SCH ×2 (10:49→21:34)
[2018-12-16] MEDS: FAMOTIDINE 20 MG TAB PO SCH (10:50)
[2018-12-16] MEDS: DEXAMETHASONE 2 MG TAB PO SCH (10:50)
[2018-12-16] MEDS: MONTELUKAST 10 MG TAB PO SCH (10:50)
[2018-12-16] MEDS: FLUCONAZOLE 100 MG TAB PO SCH (10:50)
[2018-12-16] MEDS: buPROPion SR 100 MG TABLET.ER PO SCH (10:50)
[2018-12-16] MEDS: FUROSEMIDE 40 MG TAB PO SCH (10:50)
[2018-12-16] MEDS: HEPARIN SODIUM,PORCINE 5,000 UNIT/ML 1 ML VIAL SQ SCH ×2 (10:50→21:34)
--- NOTE | 2018-12-16 11:10 | P.PN ---
Subjective Progress Note Date: 12/16/18 73-year-old female who was seen evaluated examined on medical floor, this patient admitted into the hospital earlier this morning with problems associated with nauseous feeling and nasopharyngeal swab for influenza A and B were both negative, her symptoms started a day before she has not been taking able to take anything by mouth she is not taking her home medication as well, patient has been having looser stool as well overall symptoms appeared to be like gastroenteritis however no bloody diarrhea has been noted, patient denies any emesis denies any abdominal pain and on specific questioning denies any chest pain or radiation of pain, she does have a history of COPD and chronic persistent asthma, patient also has a history of hypertension hypertensive cardiovascular disease and advanced steroid-dependent rheumatoid arthritis, she has not been formally evaluated for sleep disorder breathing and sleep apnea, on medical floor patient was found to be bradycardic which was a significant change compared to her admit vitals, patient was however hemodynamically stable but due to significant bradycardia transferred to the selective care/ICU if no bed is available consult with cardiology has been also initiated, they felt that patient to be monitored and observed dopamine/dopamine and check agents were not initiated as patient was hemodynamically stable and bradycardia thought to be related to exaggerated vagal response, review of the data also revealed that patient is hyponatremic, initial EKG revealed sinus tachycardia with left bundle branch block and currently developed high degree AV block, patient failed to capture external pacemaker eventually due to severe restlessness and significant bradycardia was intubated and cardiovascular services took her to the Lab at transvenous temporary pacemaker has been inserted through the groin, and A-line has been inserted by the anesthesia, patient only has a single lumen groin catheter through which transvenous pacemaker is present being infused with 10 mics of levo fed as well as dopamine to keep map around 65-70 patient is on full ventilator support initially patient was place on assist control rate of 20 tidal volume of 505 of PEEP 100% oxygen now rate is being cut down to 14 PEEP is 5 FiO2 Is Lowered down to 50%, 11/26/2018 patient seen eval reexamined during the rounds clinically patient remains sedated with propofol drip currently patient is on 20 mics able to come down however hemodynamic status remains marginal, patient require 100% pacing as without heart rate drops down to less than 30, patient is also on levo fed drip 35 mics, and dopamine drip 10 mics, currently maintenance IV fluids 50 mL an hour being given, patient has been found to be hypokalemic potassium has been replaced, chest x-ray revealed a possible developing left lower lobe infiltrate cannot be excluded along with small effusion, on assist control rate of 12 breathing 12 tidal volume of 500, with PEEP of 5, FiO2 is down to 40%, chest x-ray reviewed laboratory data reviewed, critical care time spent 40 minutes 11/27/2018, patient seen eval examined during the rounds clinically patient is slightly improving terms of hemodynamics, the heart block has improvement, heart rate spontaneous is in 60s to 70s, blood pressure map remains over 60-70, patient however remains on dopamine which has been titrated down to 2 mics, the levo fed has been lowered down to 6 mics as well, patient is 15 mics of propofol she is arousable does open eyes, she remains on full vent setting with assist control 12 breathing 12 tidal volume is 500, PEEP is 5, oxygen is down to 40%, chest x-ray laboratory data reviewed, blood cultures appears to be contamination as coag-negative staph has been noted, ID service has been consulted, care plan discussed with the staff at length, cardiovascular services recommendations reviewed, critical care time spent 35 minutes 11/28/2018, patient seen eval examined during rounds clinically is now off of vasopressors dopamine levo fed has been discontinued, patient has been on assist control mode switched over to CPAP 5 pressure support of 10, patient is monitor and observe on the pressure support and CPAP, spontaneous tidal volume at 300 range respiratory rate in the low 20s, saturation remains 90%, patient is still somnolent but arousable, will plan to have extended weaning for one hour and then will check arterial blood gas which was reviewed as well patient tolerated the CPAP pressure trial and very well is being extubated, otherwise patient remains afebrile respiratory secretions stable labs x-rays and radiographic studies reviewed, patient appears to have component of anasarca 40 mg of Lasix IVs does being given will put patient on daily IV furosemide as well , critical care time spent 35 minutes 11/29/2018, patient seen eval reexamined during the rounds she has been successfully weaned and active extubated she is on supplemental oxygen very weak though, patient is still have a temperature transvenous pacemaker, which is set at 40, patient is back to her sinus rhythm, patient does have a history of sleep disorder breathing and sleep apnea as per discussion with the daughter she does not use her CPAP machine very regularly, I have educated them extensively at, patient remains on broad-spectrum antibiotics labs reviewed medications reviewed radiographic studies reviewed as well, chest x-ray revealed a small pleural effusion with right basal infiltrate cardiomegaly stable triple-lumen catheter 12/01/2018. Patient remains in the intensive care unit. Patient currently on 4 L. temporary pacemaker has been removed per cardiology services. Heart rate has remained stable. At this time patient denies any chest pain or shortness breath. Patient denies nausea vomiting or diarrhea. Patient denies any urinary burning or frequency on 12/02/2018 patient remains in the intensive care unit. Patient is currently sleeping with BiPAP in place. Patient's heart rate has remained within normal limits. At this time patient denies chest pain or shortness of breath. Patient denies nausea vomiting or diarrhea. Patient denies any urinary burning or frequency. Per nursing staff patient did have a bout of confusion throughout night which is not the first occurrence On 12/03/2018 patient does appear more alert than yesterday. Patient does have increased upper respiratory wheezing. Chest x-ray ordered per critical care team. At this time patient denies chest pain or shortness breath. Patient denies nausea vomiting or diarrhea. Patient denies any urinary burning or frequency. On 12/04/2018 patient is awake and alert. Patient's expiratory wheezing does sound improved. At this time patient denies chest pain or shortness of breath. Patient denies nausea vomiting or diarrhea. Patient denies any urinary burning or frequency On 12/05/2018 patient is alert and awake eating breakfast in bed. Per nursing staff patient is a bit more confused today. CO2 is up to 40. Per nursing staff patient did not consistently wear BiPAP throughout night. At this time patient denies chest pain or shortness of breath. Patient denies nausea vomiting or diarrhea. Patient denies any urinary burning or frequency. On 12/06/2018 patient was seen and examined in ICU she required BiPAP throughout the night she is alert and oriented in no apparent distress currently she is maintained on nasal cannula she is still complaining of cough and shortness of breath she denies any chest pain or there is no fever or chills no nausea or vomiting no abdominal pain no diarrhea and no urinary symptoms. On 12/07/2018 patient is alert and oriented 3 in no apparent distress currently maintained on nasal cannula she was able to wear BiPAP throughout the night she states she feels better shortness of breath is improving there is occasional cough she denies any pain or discomfort there is no fever or chills no chest pain no nausea or vomiting no abdominal pain no diarrhea and no urinary symptoms On 12/08/2018 patient is alert and oriented 3. Patient currently resting comfortably cardiac care unit. At this time patient denies chest pain or shortness breath. Patient denies nausea vomiting or diarrhea. Patient denies any urinary burning or frequency on 12/09/2018 patient has a bit more confused today. CO2 is elevated at 41. Pulmonary services are following. At this time patient denies chest pain or shortness of breath. Patient denies nausea vomiting or diarrhea. Patient denies any urinary burning or frequency On 12/10/2018 patient remains confused. Pulmonary services are following. Patient's daughter in process of gaining guardianship. At this time patient denies chest pain or shortness of breath. Patient denies nausea vomiting or diarrhea. Patient denies any urinary burning or frequency. On 12/11/2018 patient remains confused. Discussed case with case supervisor. Daughter next of kin is trying to get guardianship for patient to go to rehab. At this time patient denies chest pain or shortness breath. Patient denies nausea vomiting or diarrhea. Patient denies any urinary burning or frequency. Creatinine increasing. Will change IV Lasix over to by mouth. CO2 also high at 46. Will add Diamox 250 mg by mouth twice a day for 3 days. On 12/12/2018 patient remains confused. Discussed case with social services manager [place]. At this time patient refusing any local ECF placement. Requesting to be transferred to [facility] or patient wants to go to surgery. Per social services manager rehab at [facility] has declined placement. Patient's daughter also in process of obtaining a court-appointed guardian for her mother. CO2 has improved to 40. Creatinine increasing to 1.28. On 12/13/2018 patient is currently resting in chair. Patient denies any complaints at this time. Patient denies nausea vomiting or diarrhea. Patient denies chest pain or shortness breath. Patient denies any urinary burning or frequency. Creatinine is continuing to increase to 1.48 despite decreasing Lasix down to 40 mg daily. On 12/14/2018 patient is currently resting comfortably in chair. Denies any complaints at this time. Creatinine pain on normal saline at 50. Patient also is scheduled Lasix down to 40 mg by mouth daily. Patient denies chest pain or shortness breath. Patient denies nausea vomiting or diarrhea. Patient denies any urinary burning or frequency 12/15/2018 patient is currently sitting up in chair. Patient reports that she is feeling slight improvement with her weakness. Discussed case with social services manager Sheryl. Legal guardianship hearing tomorrow. Discharge currently on hold until legal guardianship is established. Per nephrology normal saline has been DC'd. Creatinine improving. At this time patient denies chest pain or shortness breath. Patient denies nausea vomiting or diarrhea. Patient denies any urinary burning or frequency. On 12/16/2018 patient is currently sitting up in chair after working with physical therapy. Patient states she's feels improved. Per social work will guardianship hearing today for daughter to obtain guardianship over her mother. Patient is still adamant that she wants to be discharged to [facility]. Explained to patient that bed availability not available but remains adamant that is where she wants to go for rehab. Patient denies chest pain or shortness of breath. Patient denies nausea vomiting or diarrhea. Patient denies any urinary burning or frequency Objective - Vital Signs Vital signs: Vital Signs Temp 98.0 F 12/16/18 07:35 Pulse 88 12/16/18 09:39 Resp 20 12/16/18 09:25 BP 135/85 12/16/18 07:35 Pulse Ox 98 12/16/18 07:45 Intake & Output 12/15/18 12/16/18 12/16/18 18:59 06:59 18:59 Intake Total 590 440 Balance 590 440 Weight 118.5 kg Intake: IV 350 Sodium Chloride 0.9% 1, 350 000 ml @ 50 mls/hr IV . Q20H HEIKE Rx#:[id number] Intake, IV Titration 440 Amount Sodium Chloride 0.9% 1, 440 000 ml @ 50 mls/hr IV . Q20H HEIKE Rx#:[id number] Oral 240 Other: # Voids 1 ABP, PAP, CO, CI - Last Documented Arterial Blood Pressure 117/67 - Exam Head normocephalic Neck supple Lungs diminished bilaterally with expiratory wheezing Heart regular rate and rhythm S1-S2, no rub or gallop Abdomen is soft nontender nondistended positive bowel sounds no hepatosplenomegaly Extremities no edema - Labs CBC & Chem 7: 12/16/18 08:03 12/16/18 08:03 Labs: Abnormal Lab Results - Last 24 Hours (Table) 12/15/18 12/15/18 12/15/18 Range/Units 11:41 17:17 20:35 WBC (3.8-10.6) k/uL RBC (3.80-5.40) m/uL Hgb (11.4-16.0) gm/dL Hct (34.0-46.0) % Neutrophils # (1.3-7.7) k/uL Lymphocytes # (1.0-4.8) k/uL Carbon Dioxide (22-30) mmol/L BUN (7-17) mg/dL Creatinine (0.52-1.04) mg/dL Glucose (74-99) mg/dL POC Glucose (mg/dL) 126 H 219 H 264 H (75-99) mg/dL ALT (9-52) U/L Total Protein (6.3-8.2) g/dL Albumin (3.5-5.0) g/dL 12/16/18 12/16/18 12/16/18 Range/Units 07:21 08:03 08:03 WBC 11.5 H (3.8-10.6) k/uL RBC 3.45 L (3.80-5.40) m/uL Hgb 9.6 L (11.4-16.0) gm/dL Hct 30.5 L (34.0-46.0) % Neutrophils # 9.9 H (1.3-7.7) k/uL Lymphocytes # 0.9 L (1.0-4.8) k/uL Carbon Dioxide 34 H (22-30) mmol/L BUN 28 H (7-17) mg/dL Creatinine 1.38 H (0.52-1.04) mg/dL Glucose 135 H (74-99) mg/dL POC Glucose (mg/dL) 130 H (75-99) mg/dL ALT 57 H (9-52) U/L Total Protein 6.0 L (6.3-8.2) g/dL Albumin 3.3 L (3.5-5.0) g/dL Assessment and Plan Assessment: 1. Acute aspiration pneumonia, leading to acute hypoxic respiratory failure, requiring intubation and mechanical ventilation. . Patient also on Solu- Medrol 60 mg every 6 hours. Per pulmonary services Lasix has been increased to 40 twice a day. Repeat chest x-ray completed showing continued changes of mild- to-moderate CHF with pulmonary vascular congestion. Small to moderate pleural effusions with adjacent atelectasis and consolidation. Per infectious disease patient has been added was quickly treated for gram-negative pneumonia. Patient remains on Diflucan for her Siena albicans in her urine which she is to continue with a seven-day course of therapy 2. Acute sepsis secondary to pneumonia. Patient remains off pressors. Lactic acid 5.3. Repeat 3.0 Blood culture currently growing Staphylococcus epidermidis. Dr. Robins has been consulted for infectious disease. remains on vancomycin. per infectious disease there is no need for line placement at this point for antibiotics 3. Severe complete third-degree high-grade AV block. Patient did have TVP in place. TVP has been pulled per cardiology services. discussed case with cardiology [employer] Prerna machado. No plans at this time for patient to Permanent pacemaker placed. Patient has been cleared from cardiology services 4. Fluid overload and generalized anasarca. Currently on by mouth Lasix 5. Lactic acidosis secondary due to due to poor perfusion and cardiogenic shock 6. Hyponatremia. Improving to 134 7. Acute on chronic renal failure stage III. Creatinine increasing to 1.19 and bun 32. Lasix IV has been changed over to by mouth. Creatinine increasing to 1.48. Lasix has been decreased to once daily. Creatinine increasing to 1.54. Nephrology services are following. Creatinine down to 1.37. Saline has been DC 'd 8. History of essential hypertension 9. History of osteoarthritis 10. History of anxiety and depression 11. Hyperglycemia due to steroids. Patient placed on sliding scale steroid coverage. Hemoglobin A1c 6.4 from 11/26/2018 12. Hypercapnia. CO2 elevated at 46. Resolved CO2 34 13. History of brain meningioma. Maintained on dexamethasone Discussed case with social services manager Ryan. At this time patient is refusing any local ECF placement. Patient requesting rehab at [facility] or patient wants to go to [place]. Legal guardianship is in process. Per social services manager patient has been declined for inpatient rehab at [facility]. Patient was evaluated by Dr. Han for inpatient rehab. recommending ECF placement Legal guardianship hearing scheduled for 12/16/2018. Discharge currently on hold until legal guardianship is established DVT prophylaxis heparin. GI prophylaxis pepcid I performed an examination of the patient and discussed their management with the Nurse Practitioner. I have reviewed the Nurse Practitioner's notes and agree with the documented findings and plan of care
[2018-12-16 11:48] LABS: Glucose,Whole Blood 120 mg/dL (75-99)
[2018-12-16] MEDS: FOLIC ACID 1 MG TAB PO SCH (13:06)
--- NOTE | 2018-12-16 13:31 | P.PN ---
Subjective Patient is seen in follow for acute kidney injury. Renal function stable with creatinine of 1.38 today. She is maintenance Lasix 40 mg once daily. She's currently being treated for pneumonia. Oral intake is fair. No vomiting or diarrhea. Vital signs are stable. General: The patient appeared well nourished and normally developed. HEENT: Head exam is unremarkable. Neck is without jugular venous distension. LUNGS: Lungs are clear to auscultation and percussion. Breath sounds decreased. HEART: Rate and Rhythm are regular. First and second heart sounds normal. No murmurs, rubs or gallops. ABDOMEN: Abdominal exam reveals normal bowel sounds. Non-tender and non- distended. No evidence of peritonitis. EXTREMITITES: 1+ edema. Objective - Vital Signs Vital signs: Vital Signs Temp 98.0 F 12/16/18 07:35 Pulse 88 12/16/18 09:39 Resp 20 12/16/18 09:25 BP 135/85 12/16/18 07:35 Pulse Ox 98 12/16/18 07:45 Intake & Output 12/15/18 12/16/18 12/16/18 18:59 06:59 18:59 Intake Total 590 440 240 Output Total 1 Balance 590 440 239 Weight 118.5 kg Intake: IV 350 Sodium Chloride 0.9% 1, 350 000 ml @ 50 mls/hr IV . Q20H HEIKE Rx#:[id number] Intake, IV Titration 440 Amount Sodium Chloride 0.9% 1, 440 000 ml @ 50 mls/hr IV . Q20H HEIKE Rx#:[id number] Oral 240 240 Output: Urine 1 Other: # Voids 1 # Bowel Movements 1 ABP, PAP, CO, CI - Last Documented Arterial Blood Pressure 117/67 - Labs CBC & Chem 7: 12/16/18 08:03 12/16/18 08:03 Labs: Abnormal Lab Results - Last 24 Hours (Table) 12/15/18 12/15/18 12/16/18 Range/Units 17:17 20:35 07:21 WBC (3.8-10.6) k/uL RBC (3.80-5.40) m/uL Hgb (11.4-16.0) gm/dL Hct (34.0-46.0) % Neutrophils # (1.3-7.7) k/uL Lymphocytes # (1.0-4.8) k/uL Carbon Dioxide (22-30) mmol/L BUN (7-17) mg/dL Creatinine (0.52-1.04) mg/dL Glucose (74-99) mg/dL POC Glucose (mg/dL) 219 H 264 H 130 H (75-99) mg/dL ALT (9-52) U/L Total Protein (6.3-8.2) g/dL Albumin (3.5-5.0) g/dL 12/16/18 12/16/18 12/16/18 Range/Units 08:03 08:03 11:36 WBC 11.5 H (3.8-10.6) k/uL RBC 3.45 L (3.80-5.40) m/uL Hgb 9.6 L (11.4-16.0) gm/dL Hct 30.5 L (34.0-46.0) % Neutrophils # 9.9 H (1.3-7.7) k/uL Lymphocytes # 0.9 L (1.0-4.8) k/uL Carbon Dioxide 34 H (22-30) mmol/L BUN 28 H (7-17) mg/dL Creatinine 1.38 H (0.52-1.04) mg/dL Glucose 135 H (74-99) mg/dL POC Glucose (mg/dL) 120 H (75-99) mg/dL ALT 57 H (9-52) U/L Total Protein 6.0 L (6.3-8.2) g/dL Albumin 3.3 L (3.5-5.0) g/dL Assessment and Plan Plan: Assessment: 1. Acute kidney injury mostly prerenal secondary to cardiorenal syndrome. She had also developed contrast-induced nephropathy which improved. Creatinine 1.3 today. His urinalysis is benign. No hydronephrosis noted on kidney ultrasound. Baseline creatinine is near 1. 2. Volume overload. 3. Aspiration pneumonia maintained on antibiotics. Infectious disease following. 4. Complete heart block status post insertion and removal of temporary pacemaker. 5. Diastolic CHF. 6. Anemia. Rule out iron deficiency. Plan: Continue Lasix 40 mg once daily. Encourage oral intake. Avoid nephrotoxins. Check iron studies. Repeat electrolytes in the morning.
[2018-12-16] MEDS: ALPRAZolam 0.25 MG TAB PO PRN (16:36)
[2018-12-16 17:35] LABS: Glucose,Whole Blood 273 mg/dL (75-99)
[2018-12-16 19:04] LABS: Iron Saturation 36.93 (12.00-45.00)
[2018-12-16 19:45] LABS: Glucose,Whole Blood 310 mg/dL (75-99)
[2018-12-16 20:09] VITALS: RESP 18
--- NOTE | 2018-12-16 23:12 | PN ---
PROGRESS NOTE DATE OF SERVICE: 12/16/2018. REASON FOR FOLLOWUP: Urinary tract infection. INTERVAL HISTORY: The patient is afebrile. She is breathing comfortably. Denies having any chest pain or shortness of breath. Occasional cough. No abdominal pain. No diarrhea. PHYSICAL EXAMINATION: Blood pressure 173/85, pulse 84, temperature 98.2, she is 99% on 3 L nasal cannula cannula. GENERAL DESCRIPTION: An elderly female up in the bed in no distress. RESPIRATORY SYSTEM: Unlabored breathing. Clear to auscultation anteriorly. HEART: S1, S2. Regular rate and rhythm. ABDOMEN: Soft, no tenderness. LABS: Hemoglobin 9.2, white count 11.5, BUN of 28, creatinine 1.38. DIAGNOSTIC IMPRESSION AND PLAN: 1. Patient admitted to the hospital with gram-negative pneumonia that has been adequately treated. 2. The patient with candidal urinary tract infection with Siena. Has received about 10 days of Diflucan. Monitor clinical course off antibiotic therapy. Continue supportive care. MMODL / IJN: [id number] /
[2018-12-16 23:15] LABS: Glucose,Whole Blood 147 mg/dL (75-99)
[2018-12-17] MEDS: ALPRAZolam 0.25 MG TAB PO PRN (07:08)
[2018-12-17 08:03] LABS: Glucose,Whole Blood 159 mg/dL (75-99)
[2018-12-17] MEDS: levETIRAcetam 500 MG TAB PO SCH (08:26)
[2018-12-17] MEDS: ALBUTEROL NEBULIZED 2.5 MG/3 ML INHALATION SCH ×3 (08:26→15:24)
[2018-12-17] MEDS: SYMBICORT 160-4.5 MCG INHALER INHALATION SCH (08:26)
[2018-12-17] MEDS: INSULIN ASPART 100 UNIT/ML 1 ML 10 ML VIAL SQ SCH ×4 (08:27→12:43)
[2018-12-17] MEDS: FUROSEMIDE 40 MG TAB PO SCH (08:28)
[2018-12-17] MEDS: MONTELUKAST 10 MG TAB PO SCH (08:28)
[2018-12-17] MEDS: FAMOTIDINE 20 MG TAB PO SCH (08:28)
[2018-12-17] MEDS: HEPARIN SODIUM,PORCINE 5,000 UNIT/ML 1 ML VIAL SQ SCH (08:28)
[2018-12-17] MEDS: buPROPion SR 100 MG TABLET.ER PO SCH (08:28)
[2018-12-17] MEDS: DULoxetine HCL 30 MG CAPSULE.DR PO SCH (08:28)
[2018-12-17] MEDS: DEXAMETHASONE 2 MG TAB PO SCH (08:28)
[2018-12-17] MEDS: FOLIC ACID 1 MG TAB PO SCH (08:28)
[2018-12-17] MEDS: FLUCONAZOLE 100 MG TAB PO SCH (08:28)
[2018-12-17 08:38] LABS: Basophils % (A) 0 %; Eosinophils # (A) 0.1 k/uL (0-0.7); Eosinophils % (A) 0 %; HCT 29.7 % (34.0-46.0); HGB 9.6 gm/dL (11.4-16.0); Lymphocytes # (A) 0.9 k/uL (1.0-4.8); Lymphocytes % (A) 7 %; MCH 28.5 pg (25.0-35.0); MCHC 32.5 g/dL (31.0-37.0); MCV 87.9 fL (80.0-100.0); Mean Platelet Volume 7.3; Monocytes # (A) 0.8 k/uL (0-1.0); Monocytes % (A) 6 %; Neutrophils # (A) 10.5 k/uL (1.3-7.7); Neutrophils % (A) 85 %; Platelet Count 327 k/uL (150-450); RBC 3.38 m/uL (3.80-5.40); RDW 14.8 % (11.5-15.5); WBC 12.4 k/uL (3.8-10.6)
[2018-12-17 09:22] LABS: Albumin 3.4 g/dL (3.5-5.0); Magnesium 1.9 mg/dL (1.6-2.3); Potassium 3.8 mmol/L (3.5-5.1); Total Bilirubin 0.5 mg/dL (0.2-1.3)
--- NOTE | 2018-12-17 10:29 | P.PN ---
Subjective Patient is seen in follow for acute kidney injury. Renal function stable with creatinine of 1.38 today. She is maintenance Lasix 40 mg once daily. She's currently being treated for pneumonia. Oral intake is fair. No vomiting or diarrhea. Hemodynamically stable. Vital signs are stable. General: The patient appeared well nourished and normally developed. HEENT: Head exam is unremarkable. Neck is without jugular venous distension. LUNGS: Lungs are clear to auscultation and percussion. Breath sounds decreased. HEART: Rate and Rhythm are regular. First and second heart sounds normal. No murmurs, rubs or gallops. ABDOMEN: Abdominal exam reveals normal bowel sounds. Non-tender and non- distended. No evidence of peritonitis. EXTREMITITES: 1+ edema. Objective - Vital Signs Vital signs: Vital Signs Temp 98.9 F 12/17/18 06:47 Pulse 76 12/17/18 08:40 Resp 18 12/17/18 06:47 BP 156/83 12/17/18 06:47 Pulse Ox 98 12/17/18 06:47 Intake & Output 12/16/18 12/17/18 12/17/18 18:59 06:59 18:59 Intake Total 990 175 Output Total 1 Balance 989 175 Weight 111 kg Intake: IV 175 Sodium Chloride 0.9% 1, 175 000 ml @ 50 mls/hr IV . Q20H [facility] Rx#:[id number] Oral 990 Output: Urine 1 Other: Voiding Method Toilet Toilet Bedside Commode Bedside Commode # Voids 2 3 # Bowel Movements 2 ABP, PAP, CO, CI - Last Documented Arterial Blood Pressure 117/67 - Labs CBC & Chem 7: 12/17/18 07:49 12/17/18 07:49 Labs: Abnormal Lab Results - Last 24 Hours (Table) 12/16/18 12/16/18 12/16/18 Range/Units 08:03 11:36 17:21 WBC (3.8-10.6) k/uL RBC (3.80-5.40) m/uL Hgb (11.4-16.0) gm/dL Hct (34.0-46.0) % Neutrophils # (1.3-7.7) k/uL Lymphocytes # (1.0-4.8) k/uL Sodium (137-145) mmol/L Carbon Dioxide (22-30) mmol/L BUN (7-17) mg/dL Creatinine (0.52-1.04) mg/dL Glucose (74-99) mg/dL POC Glucose (mg/dL) 120 H 273 H (75-99) mg/dL Ferritin 312.4 H (10.0-291.0) ng/mL ALT (9-52) U/L Total Protein (6.3-8.2) g/dL Albumin (3.5-5.0) g/dL 12/16/18 12/16/18 12/17/18 Range/Units 19:28 23:04 07:28 WBC (3.8-10.6) k/uL RBC (3.80-5.40) m/uL Hgb (11.4-16.0) gm/dL Hct (34.0-46.0) % Neutrophils # (1.3-7.7) k/uL Lymphocytes # (1.0-4.8) k/uL Sodium (137-145) mmol/L Carbon Dioxide (22-30) mmol/L BUN (7-17) mg/dL Creatinine (0.52-1.04) mg/dL Glucose (74-99) mg/dL POC Glucose (mg/dL) 310 H 147 H 159 H (75-99) mg/dL Ferritin (10.0-291.0) ng/mL ALT (9-52) U/L Total Protein (6.3-8.2) g/dL Albumin (3.5-5.0) g/dL 12/17/18 12/17/18 Range/Units 07:49 07:49 WBC 12.4 H (3.8-10.6) k/uL RBC 3.38 L (3.80-5.40) m/uL Hgb 9.6 L (11.4-16.0) gm/dL Hct 29.7 L (34.0-46.0) % Neutrophils # 10.5 H (1.3-7.7) k/uL Lymphocytes # 0.9 L (1.0-4.8) k/uL Sodium 136 L (137-145) mmol/L Carbon Dioxide 32 H (22-30) mmol/L BUN 28 H (7-17) mg/dL Creatinine 1.38 H (0.52-1.04) mg/dL Glucose 141 H (74-99) mg/dL POC Glucose (mg/dL) (75-99) mg/dL Ferritin (10.0-291.0) ng/mL ALT 56 H (9-52) U/L Total Protein 6.0 L (6.3-8.2) g/dL Albumin 3.4 L (3.5-5.0) g/dL Assessment and Plan Plan: Assessment: 1. Acute kidney injury mostly prerenal secondary to cardiorenal syndrome. She had also developed contrast-induced nephropathy which improved. Creatinine 1.38 today. His urinalysis is benign. No hydronephrosis noted on kidney ultrasound. Baseline creatinine is near 1. 2. Volume overload. 3. Aspiration pneumonia maintained on antibiotics. Infectious disease following. 4. Complete heart block status post insertion and removal of temporary pacemaker. 5. Diastolic CHF. 6. Anemia. Iron replete. Plan: Continue Lasix 40 mg once daily. Encourage oral intake. Avoid nephrotoxins. Repeat electrolytes in the morning.
[2018-12-17 11:19] VITALS: BMI 43.3
[2018-12-17 12:12] LABS: Glucose,Whole Blood 148 mg/dL (75-99)
--- NOTE | 2018-12-17 12:33 | P.DS ---
Providers Date of admission: 11/26/18 06:12 Expected date of discharge: 12/17/18 Attending physician: Kimberley Sharif Consults: 12/04/18 10:39 Consult Physician Routine Consulting Provider: Joe Crowell Consult Reason/Comments: pulmonary management Do you want consulting provider notified?: Already Contacted 12/11/18 11:08 Consult Physician Routine Consulting Provider: Matheus Han Consult Reason/Comments: evaluation for inpatient rehab Do you want consulting provider notified?: Yes 12/14/18 13:00 Consult Physician Routine Consulting Provider: Peyton Gutierrez Consult Reason/Comments: Acute kidney injury Do you want consulting provider notified?: Yes 11/25/18 12:40 Consult Physician Urgent Consulting Provider: [facility] Consult Reason/Comments: bradycardia, rhythm change Do you want consulting provider notified?: Yes 11/27/18 15:08 Consult Physician Routine Consulting Provider: Felix Robins Consult Reason/Comments: postive blood cultures Do you want consulting provider notified?: Yes Primary care physician: Marcia Loomis Hospital Course: Discharge diagnosis 1. Acute aspiration pneumonia, leading to acute hypoxic respiratory failure, requiring intubation and mechanical ventilation. . Patient also on Solu- Medrol 60 mg every 6 hours. Per pulmonary services Lasix has been increased to 40 twice a day. Repeat chest x-ray completed showing continued changes of mild- to-moderate CHF with pulmonary vascular congestion. Small to moderate pleural effusions with adjacent atelectasis and consolidation. Per infectious disease patient has completed all antibiotic treatment. No need for antibiotic treatment Upon discharge 2. Acute sepsis secondary to pneumonia. Patient remains off pressors. Lactic acid 5.3. Repeat 3.0 Blood culture currently growing Staphylococcus epidermidis. Per infectious disease patient completed all antibiotic treatment no need for antibiotics upon discharge 3. Severe complete third-degree high-grade AV block. Patient did have TVP in place. TVP has been pulled per cardiology services. discussed case with cardiology [employer] ENGINE[employer] Prerna machado. No plans at this time for patient to Permanent pacemaker placed. Patient has been cleared from cardiology services. Patient to follow-up with cardiology services upon discharge 4. Fluid overload and generalized anasarca. Currently on by mouth Lasix. Per nephrology patient to be maintained on 40 mg Lasix daily 5. Lactic acidosis secondary due to due to poor perfusion and cardiogenic shock 6. Hyponatremia. Improving to 134 7. Acute on chronic renal failure stage III. Creatinine increasing to 1.19 and bun 32. Lasix IV has been changed over to by mouth. Creatinine increasing to 1.48. Lasix has been decreased to once daily. Creatinine increasing to 1.54. Nephrology services are following. Creatinine down to 1.37. 8. History of essential hypertension 9. History of osteoarthritis 10. History of anxiety and depression 11. Hyperglycemia due to steroids. Patient placed on sliding scale steroid coverage. Hemoglobin A1c 6.4 from 11/26/2018. She will be DC'd on sliding scale +3 units with meals 12. Hypercapnia. CO2 elevated at 46. Resolved CO2 34 13. History of brain meningioma. Maintained on dexamethasone Discussed case with perinatal social worker [place]. At this time patient is refusing any local ECF placement. Patient requesting rehab at [place] or patient wants to go to [place]. Per perinatal social worker patient has been declined for inpatient rehab at [place]. Legal DPOAE has been assigned. Patient to be transferred to [facility] for rehab per DPOA Patient was evaluated by Dr. Han for inpatient rehab. recommending ECF placement Hospital course 73-year-old female who was seen evaluated examined on medical floor, this patient admitted into the hospital earlier this morning with problems associated with nauseous feeling and nasopharyngeal swab for influenza A and B were both negative, her symptoms started a day before she has not been taking able to take anything by mouth she is not taking her home medication as well, patient has been having looser stool as well overall symptoms appeared to be like gastroenteritis however no bloody diarrhea has been noted, patient denies any emesis denies any abdominal pain and on specific questioning denies any chest pain or radiation of pain, she does have a history of COPD and chronic persistent asthma, patient also has a history of hypertension hypertensive cardiovascular disease and advanced steroid-dependent rheumatoid arthritis, she has not been formally evaluated for sleep disorder breathing and sleep apnea, on medical floor patient was found to be bradycardic which was a significant change compared to her admit vitals, patient was however hemodynamically stable but due to significant bradycardia transferred to the selective care/ICU if no bed is available consult with cardiology has been also initiated, they felt that patient to be monitored and observed dopamine/dopamine and check agents were not initiated as patient was hemodynamically stable and bradycardia thought to be related to exaggerated vagal response, review of the data also revealed that patient is hyponatremic, initial EKG revealed sinus tachycardia with left bundle branch block and currently developed high degree AV block, patient failed to capture external pacemaker eventually due to severe restlessness and significant bradycardia was intubated and cardiovascular services took her to the Lab at transvenous temporary pacemaker has been inserted through the groin, and A-line has been inserted by the anesthesia, patient only has a single lumen groin catheter through which transvenous pacemaker is present being infused with 10 mics of levo fed as well as dopamine to keep map around 65-70 patient is on full ventilator support initially patient was place on assist control rate of 20 tidal volume of 505 of PEEP 100% oxygen now rate is being cut down to 14 PEEP is 5 FiO2 Is Lowered down to 50%, 11/26/2018 patient seen eval reexamined during the rounds clinically patient remains sedated with propofol drip currently patient is on 20 mics able to come down however hemodynamic status remains marginal, patient require 100% pacing as without heart rate drops down to less than 30, patient is also on levo fed drip 35 mics, and dopamine drip 10 mics, currently maintenance IV fluids 50 mL an hour being given, patient has been found to be hypokalemic potassium has been replaced, chest x-ray revealed a possible developing left lower lobe infiltrate cannot be excluded along with small effusion, on assist control rate of 12 breathing 12 tidal volume of 500, with PEEP of 5, FiO2 is down to 40%, chest x-ray reviewed laboratory data reviewed, critical care time spent 40 minutes 11/27/2018, patient seen eval examined during the rounds clinically patient is slightly improving terms of hemodynamics, the heart block has improvement, heart rate spontaneous is in 60s to 70s, blood pressure map remains over 60-70, patient however remains on dopamine which has been titrated down to 2 mics, the levo fed has been lowered down to 6 mics as well, patient is 15 mics of propofol she is arousable does open eyes, she remains on full vent setting with assist control 12 breathing 12 tidal volume is 500, PEEP is 5, oxygen is down to 40%, chest x-ray laboratory data reviewed, blood cultures appears to be contamination as coag-negative staph has been noted, ID service has been consulted, care plan discussed with the staff at length, cardiovascular services recommendations reviewed, critical care time spent 35 minutes 11/28/2018, patient seen eval examined during rounds clinically is now off of vasopressors dopamine levo fed has been discontinued, patient has been on assist control mode switched over to CPAP 5 pressure support of 10, patient is monitor and observe on the pressure support and CPAP, spontaneous tidal volume at 300 range respiratory rate in the low 20s, saturation remains 90%, patient is still somnolent but arousable, will plan to have extended weaning for one hour and then will check arterial blood gas which was reviewed as well patient tolerated the CPAP pressure trial and very well is being extubated, otherwise patient remains afebrile respiratory secretions stable labs x-rays and radiographic studies reviewed, patient appears to have component of anasarca 40 mg of Lasix IVs does being given will put patient on daily IV furosemide as well , critical care time spent 35 minutes 11/29/2018, patient seen evconstantine reexamined during the rounds she has been successfully weaned and active extubated she is on supplemental oxygen very weak though, patient is still have a temperature transvenous pacemaker, which is set at 40, patient is back to her sinus rhythm, patient does have a history of sleep disorder breathing and sleep apnea as per discussion with the daughter she does not use her CPAP machine very regularly, I have educated them extensively at, patient remains on broad-spectrum antibiotics labs reviewed medications reviewed radiographic studies reviewed as well, chest x-ray revealed a small pleural effusion with right basal infiltrate cardiomegaly stable triple-lumen catheter 12/01/2018. Patient remains in the intensive care unit. Patient currently on 4 L. temporary pacemaker has been removed per cardiology services. Heart rate has remained stable. At this time patient denies any chest pain or shortness breath. Patient denies nausea vomiting or diarrhea. Patient denies any urinary burning or frequency on 12/02/2018 patient remains in the intensive care unit. Patient is currently sleeping with BiPAP in place. Patient's heart rate has remained within normal limits. At this time patient denies chest pain or shortness of breath. Patient denies nausea vomiting or diarrhea. Patient denies any urinary burning or frequency. Per nursing staff patient did have a bout of confusion throughout night which is not the first occurrence On 12/03/2018 patient does appear more alert than yesterday. Patient does have increased upper respiratory wheezing. Chest x-ray ordered per critical care team. At this time patient denies chest pain or shortness breath. Patient denies nausea vomiting or diarrhea. Patient denies any urinary burning or frequency. On 12/04/2018 patient is awake and alert. Patient's expiratory wheezing does sound improved. At this time patient denies chest pain or shortness of breath. Patient denies nausea vomiting or diarrhea. Patient denies any urinary burning or frequency On 12/05/2018 patient is alert and awake eating breakfast in bed. Per nursing staff patient is a bit more confused today. CO2 is up to 40. Per nursing staff patient did not consistently wear BiPAP throughout night. At this time patient denies chest pain or shortness of breath. Patient denies nausea vomiting or diarrhea. Patient denies any urinary burning or frequency. On 12/06/2018 patient was seen and examined in ICU she required BiPAP throughout the night she is alert and oriented in no apparent distress currently she is maintained on nasal cannula she is still complaining of cough and shortness of breath she denies any chest pain or there is no fever or chills no nausea or vomiting no abdominal pain no diarrhea and no urinary symptoms. On 12/07/2018 patient is alert and oriented 3 in no apparent distress currently maintained on nasal cannula she was able to wear BiPAP throughout the night she states she feels better shortness of breath is improving there is occasional cough she denies any pain or discomfort there is no fever or chills no chest pain no nausea or vomiting no abdominal pain no diarrhea and no urinary symptoms On 12/08/2018 patient is alert and oriented 3. Patient currently resting comfortably cardiac care unit. At this time patient denies chest pain or shortness breath. Patient denies nausea vomiting or diarrhea. Patient denies any urinary burning or frequency on 12/09/2018 patient has a bit more confused today. CO2 is elevated at 41. Pulmonary services are following. At this time patient denies chest pain or shortness of breath. Patient denies nausea vomiting or diarrhea. Patient denies any urinary burning or frequency On 12/10/2018 patient remains confused. Pulmonary services are following. Patient's daughter in process of gaining guardianship. At this time patient denies chest pain or shortness of breath. Patient denies nausea vomiting or diarrhea. Patient denies any urinary burning or frequency. On 12/11/2018 patient remains confused. Discussed case with dependency case manager. Daughter next of kin is trying to get guardianship for patient to go to rehab. At this time patient denies chest pain or shortness breath. Patient denies nausea vomiting or diarrhea. Patient denies any urinary burning or frequency. Creatinine increasing. Will change IV Lasix over to by mouth. CO2 also high at 46. Will add Diamox 250 mg by mouth twice a day for 3 days. On 12/12/2018 patient remains confused. Discussed case with perinatal social worker [place]. At this time patient refusing any local ECF placement. Requesting to be transferred to [facility] rehab or patient wants to go to surgery. Per perinatal social worker rehab at [facility] has declined placement. Patient's daughter also in process of obtaining a court-appointed guardian for her mother. CO2 has improved to 40. Creatinine increasing to 1.28. On 12/13/2018 patient is currently resting in chair. Patient denies any complaints at this time. Patient denies nausea vomiting or diarrhea. Patient denies chest pain or shortness breath. Patient denies any urinary burning or frequency. Creatinine is continuing to increase to 1.48 despite decreasing Lasix down to 40 mg daily. On 12/14/2018 patient is currently resting comfortably in chair. Denies any complaints at this time. Creatinine pain on normal saline at 50. Patient also is scheduled Lasix down to 40 mg by mouth daily. Patient denies chest pain or shortness breath. Patient denies nausea vomiting or diarrhea. Patient denies any urinary burning or frequency 12/15/2018 patient is currently sitting up in chair. Patient reports that she is feeling slight improvement with her weakness. Discussed case with perinatal social worker Sheryl. Legal guardianship hearing tomorrow. Discharge currently on hold until legal guardianship is established. Per nephrology normal saline has been DC'd. Creatinine improving. At this time patient denies chest pain or shortness breath. Patient denies nausea vomiting or diarrhea. Patient denies any urinary burning or frequency. On 12/16/2018 patient is currently sitting up in chair after working with physical therapy. Patient states she's feels improved. Per social work will guardianship hearing today for daughter to obtain guardianship over her mother. Patient is still adamant that she wants to be discharged to [facility] rehab. Explained to patient that bed availability not available but remains adamant that is where she wants to go for rehab. Patient denies chest pain or shortness of breath. Patient denies nausea vomiting or diarrhea. Patient denies any urinary burning or frequency On 12/17/2018 patient daughter now legal DPOA. Patient to be transferred to [facility] for rehab per DPOA. At this time patient is resting comfortably in bed. Patient denies chest pain or shortness breath. Patient denies nausea vomiting or diarrhea. Creatinine 1.38. Patient to follow up with cardiology in nephrology services. Per infectious disease patient has completed all antibiotic treatment. Patient denies chest pain or shortness of breath. Patient denies nausea vomiting or diarrhea. Patient denies any urinary burning or frequency. CBC and CMP to be drawn in 2 days. Patient will be followed by Dr. Sharif I performed an examination of the patient and discussed their management with the Nurse Practitioner. I have reviewed the Nurse Practitioner's notes and agree with the documented findings and plan of care Patient Condition at Discharge: Stable Plan - Discharge Summary Discharge Rx Participant: No New Discharge Prescriptions: New Furosemide [Lasix] 40 mg PO DAILY tab Insulin Aspart [NovoLOG (formulary)] 3 unit SQ AC-TID vial Insulin Aspart [NovoLOG (formulary)] 0 unit SQ ACHS vial Sennosides [Senokot] 8.6 mg PO DAILY PRN tab PRN Reason: Constipation Continue Montelukast [Singulair] 10 mg PO DAILY Aspirin EC [Ecotrin Low Dose] 81 mg PO HS Albuterol Nebulized [Ventolin Nebulized] 2.5 mg INHALATION RT-DAILY levETIRAcetam [Keppra] 500 mg PO BID Ergocalciferol [Vitamin D2 (DRISDOL)] 50,000 unit PO MO Dexamethasone [Hexadrol] 2 mg PO DAILY Folic Acid 1 mg PO DAILY Esomeprazole Magnesium [NexIUM] 40 mg PO BID DULoxetine HCL [Cymbalta] 30 mg PO DAILY buPROPion HCL [Wellbutrin SR] 100 mg PO DAILY ALPRAZolam [Xanax] 0.25 mg PO BID PRN #6 tab PRN Reason: Anxiety Discontinued Nitroglycerin Sl Tabs [Nitrostat] 0.4 mg SUBLINGUAL Q5M PRN PRN Reason: Chest Pain Furosemide [Lasix] 40 mg PO DAILY Furosemide [Lasix] 20 mg PO HS Discharge Medication List Albuterol Nebulized [Ventolin Nebulized] 2.5 mg INHALATION RT-DAILY 03/22/17 [ History] Aspirin EC [Ecotrin Low Dose] 81 mg PO HS 03/22/17 [History] Dexamethasone [Hexadrol] 2 mg PO DAILY 03/22/17 [History] Ergocalciferol [Vitamin D2 (DRISDOL)] 50,000 unit PO MO 03/22/17 [History] Montelukast [Singulair] 10 mg PO DAILY 03/22/17 [History] levETIRAcetam [Keppra] 500 mg PO BID 03/22/17 [History] Esomeprazole Magnesium [NexIUM] 40 mg PO BID 03/24/18 [History] Folic Acid 1 mg PO DAILY 03/24/18 [History] DULoxetine HCL [Cymbalta] 30 mg PO DAILY 11/25/18 [History] buPROPion HCL [Wellbutrin SR] 100 mg PO DAILY 11/25/18 [History] ALPRAZolam [Xanax] 0.25 mg PO BID PRN #6 tab 12/17/18 [Rx] Furosemide [Lasix] 40 mg PO DAILY tab 12/17/18 [Rx] Insulin Aspart [NovoLOG (formulary)] 0 unit SQ ACHS vial 12/17/18 [Rx] Insulin Aspart [NovoLOG (formulary)] 3 unit SQ AC-TID vial 12/17/18 [Rx] Sennosides [Senokot] 8.6 mg PO DAILY PRN tab 12/17/18 [Rx] Follow up Appointment(s)/Referral(s): Marcia Loomis DO [Primary Care Provider] - 1-2 days Saleem Diaz MD [STAFF PHYSICIAN] - 1 Week Peyton Gutierrez MD [STAFF PHYSICIAN] - 2 Weeks Tatum Mcnamara MD [STAFF PHYSICIAN] - 1 Week Activity/Diet/Wound Care/Special Instructions: Patient being discharged to [facility] rehab. Patient being followed by Dr. Kole Robert cosnsiitent carb, heart healthy Activity as tolerated CBC and CMP in 2 days Discharge Disposition: TRANSFER TO SNF/ECF
--- NOTE | 2018-12-17 12:37 | CDI ---
Documentation Clarification Form Date: 12/17/2018 12:24:03 PM From: Genie DeCarmonaABNER sanders, CCDS Admit Date: 11/26/2018 6:12:00 AM Patient Name: Isabel Keene Visit Number: [id number] Discharge Date: ATTENTION: The Clinical Documentation Specialists (CDI) and [facility] Coding Staff appreciate your assistance in clarifying documentation. Please respond to the clarification below the line at the bottom and electronically sign. The CDI & [facility] Coding staff will review the response and follow-up if needed. Please note: Queries are made part of the Legal Health Record. If you have any questions, please contact the author of this message via ITS. Dr. Nam Jones: A diagnosis of anemia lacks specificity to accurately reflect your patients severity of condition and clarification is needed. Per the nephrology notes: rule out iron deficiency. 12/16 Iron: (89). History/Risk Factors: Mild Persistent Asthma, Hypertensive Cardiovascular disease with diastolic CHF, CKD III, COPD, OA, YUNI, Osteoporosis, Obesity w/BMI >45, Benign brain tumor w/hydrocephalus, Former smoker. Clinical indicators: Presented with persistent nausea, not feeling well x24 hours, bradycardic, hyponatremic. Developed high grade AV block requiring external pacemaker. Intubated & put on ventilator. Hemoglobin: 11.5 - 9.0 - 9.6 Hematocrit: 35.7 - 28.5 - 29.7 Treatment: Monitoring H/H, IV Zofran, IV Narcan, IV MagSulf, IV Kcl, IV Dopamine , Albuterol INH, IV Vanco, NGT, IV Lasix, IV Solumedrol, extubated 11/28, now on 3L nc, pending discharge to [facility]. In order to capture the severity of condition, please clarify the type of anemia and etiology if known: Acute blood loss anemia Acute on chronic blood loss anemia Chronic blood loss anemia Iron deficiency anemia Hemolytic anemia Drug induced anemia Nutritional anemia Anemia of chronic kidney disease Unable to determine Other, please specify (Last Revision: September 2017) unknown __ MTDD
[2018-12-17] MEDS ORDERED: INFLUENZA VACCINE (6 MOS+) 60 MCG/0.5 ML SYRINGE IM ONE (12:40)
--- NOTE | 2018-12-17 13:07 | PN ---
PROGRESS NOTE DATE OF SERVICE: 12/17/2018 REASON FOR FOLLOWUP: 1. Gram-negative pneumonia has been adequately treated. 2. Patient with UTI, yeast. INTERVAL HISTORY: The patient is currently afebrile. She is breathing comfortably. Denies having any chest pain, shortness of breath or cough. No abdominal pain and no diarrhea. PHYSICAL EXAMINATION: Blood pressure is 156/83, pulse of 79, temperature 98.9, she is 98% on 2 L nasal cannula. General description is an elderly female, up in the chair in no distress. RESPIRATORY SYSTEM: Unlabored breathing, clear to auscultation anteriorly. HEART: S1, S2. Regular rate and rhythm. ABDOMEN: Soft, no tenderness. LABS: Hemoglobin 9.1, white count of 2.4, BUN of 8, creatinine is 1.38. DIAGNOSTIC IMPRESSION AND PLAN: 1. Patient with a positive blood culture with contamination. 2. Patient with pneumonia and has been adequately treated. 3. Patient with a urinary tract infection, adequately treated: Recommend no need for any antibiotic on discharge. Plan of care discussed with the primary team. Continue supportive care. MMODL / IJN: [id number] /
[2018-12-17 14:34] VITALS: BP 147/83; PULSE 89; TEMP 97.9
== END 2018-12-17 15:24 | DRG 871 ==
LOC: EC 06:04 → 3NMEDONC 07:51 → 2SICU 11:33 → OBSVTOIN 11-26 06:12 → EEVIPCON 11-26 06:12 → 3SCARD 12-07 13:45 → 4SSUR 12-11 18:25
PROVIDERS: ADMIT Internal Medicine; ATTEND Internal Medicine
PROC: 0BH17EZ Insertion of Endotracheal Airway into Trachea, Via Natural or Artificial Opening (ICD-10-PCS; 2018-11-25)
PROC: 02HV33Z Insertion of Infusion Device into Superior Vena Cava, Percutaneous Approach (ICD-10-PCS; 2018-11-25)
PROC: 4A023N7 Measurement of Cardiac Sampling and Pressure, Left Heart, Percutaneous Approach (ICD-10-PCS; 2018-11-25)
PROC: B2111ZZ Fluoroscopy of Multiple Coronary Arteries using Low Osmolar Contrast (ICD-10-PCS; 2018-11-25)
PROC: B2151ZZ Fluoroscopy of Left Heart using Low Osmolar Contrast (ICD-10-PCS; 2018-11-25)
PROC: 4A133BC Monitoring of Arterial Pressure, Coronary, Percutaneous Approach (ICD-10-PCS; 2018-11-25)
PROC: 04HY32Z Insertion of Monitoring Device into Lower Artery, Percutaneous Approach (ICD-10-PCS; 2018-11-25)
PROC: 4A133B1 Monitoring of Arterial Pressure, Peripheral, Percutaneous Approach (ICD-10-PCS; 2018-11-25)
PROC: 4A133J1 Monitoring of Arterial Pulse, Peripheral, Percutaneous Approach (ICD-10-PCS; 2018-11-25)
PROC: 5A1223Z Performance of Cardiac Pacing, Continuous (ICD-10-PCS; 2018-11-25)
PROC: 5A1945Z Respiratory Ventilation, 24-96 Consecutive Hours (ICD-10-PCS; principal; 2018-11-25 20:31)
DX: A41.1 Sepsis due to other specified staphylococcus (principal); J69.0 Pneumonitis due to inhalation of food and vomit; B37.49 Other urogenital candidiasis; T83.518A Infection and inflammatory reaction due to other urinary catheter, initial encounter; J96.02 Acute respiratory failure with hypercapnia; J96.01 Acute respiratory failure with hypoxia; G93.41 Metabolic encephalopathy; I50.33 Acute on chronic diastolic (congestive) heart failure; J15.6 Pneumonia due to other Gram-negative bacteria; K72.00 Acute and subacute hepatic failure without coma; R57.0 Cardiogenic shock; R65.21 Severe sepsis with septic shock; N17.9 Acute kidney failure, unspecified; Z68.41 Body mass index [BMI] 40.0-44.9, adult; E87.1 Hypo-osmolality and hyponatremia; E87.2 Acidosis; I13.0 Hypertensive heart and chronic kidney disease with heart failure and stage 1 through stage 4 chronic kidney disease, or unspecified chronic kidney disease; I44.2 Atrioventricular block, complete; J98.11 Atelectasis; G91.9 Hydrocephalus, unspecified; J45.30 Mild persistent asthma, uncomplicated; Z87.891 Personal history of nicotine dependence; D32.0 Benign neoplasm of cerebral meninges; D64.9 Anemia, unspecified; E66.01 Morbid (severe) obesity due to excess calories; E86.0 Dehydration; E87.5 Hyperkalemia; E87.6 Hypokalemia; F32.9 Major depressive disorder, single episode, unspecified; F41.9 Anxiety disorder, unspecified; G47.33 Obstructive sleep apnea (adult) (pediatric); I44.7 Left bundle-branch block, unspecified; R00.1 Bradycardia, unspecified; K21.9 Gastro-esophageal reflux disease without esophagitis; K59.00 Constipation, unspecified; M06.9 Rheumatoid arthritis, unspecified; M19.90 Unspecified osteoarthritis, unspecified site; M81.0 Age-related osteoporosis without current pathological fracture; N14.1 Nephropathy induced by other drugs, medicaments and biological substances; N18.3 Chronic kidney disease, stage 3 (moderate); T38.0X5A Adverse effect of glucocorticoids and synthetic analogues, initial encounter; T50.8X5A Adverse effect of diagnostic agents, initial encounter; Y84.6 Urinary catheterization as the cause of abnormal reaction of the patient, or of later complication, without mention of misadventure at the time of the procedure; Z79.52 Long term (current) use of systemic steroids; Z79.899 Other long term (current) drug therapy; Z79.82 Long term (current) use of aspirin; Z81.8 Family history of other mental and behavioral disorders; Z82.5 Family history of asthma and other chronic lower respiratory diseases; Z88.0 Allergy status to penicillin; Z88.1 Allergy status to other antibiotic agents; E11.65 Type 2 diabetes mellitus with hyperglycemia; E11.22 Type 2 diabetes mellitus with diabetic chronic kidney disease; R11.2 Nausea with vomiting, unspecified; R19.7 Diarrhea, unspecified
CPT/HCPCS: 33210; 36415; 36600; 71045; 71046; 76770; 80048; 80053; 80177; 80202; 80306; 81001; 81003; 82150; 82550; 82553; 82728; 82803; 82805; 83036; 83540; 83550; 83605; 83690; 83735; 83880; 84100; 84132; 84484; 85025; 85610; 85730; 87040; 87070; 87077; 87086; 87150; 87186; 87205; 87502; 90686; 93005; 93306; 94002; 94003; 94640; 94660; 94760; 96374; 99285

== ENCOUNTER 2019-02-07 22:22 | Inpatient (IN) | payer MEDICARE, OTHER ==
[2019-02-07] MEDS ORDERED: methylPREDNISolone SOD SUCCI 125 MG/2 ML VIAL IV STA (22:59)
[2019-02-07] MEDS ORDERED: IPRATROPIUM-ALBUTEROL 3 ML NEB INHALATION STA (22:59)
--- NOTE | 2019-02-07 23:03 | ED ---
General Adult HPI - General Chief complaint: Shortness of Breath Stated complaint: EVANS Time Seen by Provider: 02/07/19 22:46 Source: patient, EMS, RN notes reviewed Mode of arrival: EMS Limitations: no limitations - History of Present Illness Initial comments: Patient is a pleasant 73-year-old female presenting to the emergency Department with cough. Patient is a poor historian. Cough appears to be somewhat chronic however may be worse over the past few days. Patient states she has chest congestion however has difficulty getting it up. No known fevers. No chest pain. Patient does have leg swelling. Patient does have a history of similar symptoms previously associated with her COPD/asthma. Patient states she does also have history of CHF. - Related Data Home Medications Medication Instructions Recorded Confirmed Albuterol Nebulized [Ventolin 2.5 mg INHALATION RT-DAILY 03/22/17 11/25/18 Nebulized] Aspirin EC [Ecotrin Low Dose] 81 mg PO HS 03/22/17 11/25/18 Dexamethasone [Hexadrol] 2 mg PO DAILY 03/22/17 11/25/18 Ergocalciferol [Vitamin D2 50,000 unit PO MO 03/22/17 11/25/18 (DRISDOL)] Montelukast [Singulair] 10 mg PO DAILY 03/22/17 11/25/18 levETIRAcetam [Keppra] 500 mg PO BID 03/22/17 11/25/18 Esomeprazole Magnesium [NexIUM] 40 mg PO BID 03/24/18 11/25/18 Folic Acid 1 mg PO DAILY 03/24/18 11/25/18 DULoxetine HCL [Cymbalta] 30 mg PO DAILY 11/25/18 11/25/18 buPROPion HCL [Wellbutrin SR] 100 mg PO DAILY 11/25/18 11/25/18 Previous Rx's Medication Instructions Recorded ALPRAZolam [Xanax] 0.25 mg PO BID PRN #6 tab 12/17/18 Furosemide [Lasix] 40 mg PO DAILY tab 12/17/18 INSULIN ASPART (NovoLOG) [NovoLOG 0 unit SQ ACHS vial 12/17/18 (formulary)] INSULIN ASPART (NovoLOG) [NovoLOG 3 unit SQ AC-TID vial 12/17/18 (formulary)] Sennosides [Senokot] 8.6 mg PO DAILY PRN tab 12/17/18 Allergies Allergy/AdvReac Type Severity Reaction Status Date / Time Penicillins Allergy Rash/Hives Verified 11/25/18 08:13 Review of Systems ROS Statement: Those systems with pertinent positive or pertinent negative responses have been documented in the HPI. ROS Other: All systems not noted in ROS Statement are negative. 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 History of Any Multi-Drug Resistant Organisms: None Reported Past Surgical History: Cholecystectomy, Tonsillectomy Past Anesthesia/Blood Transfusion Reactions: No Reported Reaction Past Psychological History: Anxiety, Depression Smoking Status: Former smoker Past Alcohol Use History: None Reported Past Drug Use History: None Reported - Past Family History Mother Family Medical History: Asthma Additional Family Medical History / Comment(s): depression Father Additional Family Medical History / Comment(s): ETOH General Exam Limitations: no limitations General appearance: alert, in no apparent distress Head exam: Present: atraumatic Eye exam: Present: normal appearance, PERRL ENT exam: Present: normal oropharynx Neck exam: Present: normal inspection Respiratory exam: Present: wheezes, rhonchi Cardiovascular Exam: Present: regular rate, normal rhythm GI/Abdominal exam: Present: soft. Absent: tenderness Extremities exam: Present: pedal edema. Absent: calf tenderness Back exam: Present: normal inspection Neurological exam: Present: alert Psychiatric exam: Present: normal affect, normal mood Skin exam: Present: normal color Course Vital Signs 02/07/19 02/07/19 02/08/19 22:30 23:55 00:04 Temperature 98.0 F Pulse Rate 82 78 85 Respiratory 18 Rate Blood Pressure 116/64 O2 Sat by Pulse 98 Oximetry EKG Findings - EKG Comments: EKG Findings:: Sinus rhythm and 95. MD 174. QRS 138. QT 392. QTC 492. Normal axis. Left bundle branch block. No acute ST change. Medical Decision Making - Medical Decision Making Patient reevaluated and slightly improved. Lung sounds have improved. Patient still feels short of breath and would prefer to stay in the hospital. Case was discussed in detail with Dr. Sharif, who will admit for Dr. Loomis. - Lab Data Result diagrams: 02/07/19 22:42 02/07/19 22:42 Lab Results 02/07/19 02/07/19 02/07/19 Range/Units 22:42 22:42 22:42 WBC 10.9 H (3.8-10.6) k/uL RBC 3.28 L (3.80-5.40) m/uL Hgb 9.7 L (11.4-16.0) gm/dL Hct 30.1 L (34.0-46.0) % MCV 91.9 (80.0-100.0) fL MCH 29.6 (25.0-35.0) pg MCHC 32.2 (31.0-37.0) g/dL RDW 15.8 H (11.5-15.5) % Plt Count 352 (150-450) k/uL Neutrophils % 84 % Lymphocytes % 9 % Monocytes % 5 % Eosinophils % 2 % Basophils % 0 % Neutrophils # 9.1 H (1.3-7.7) k/uL Lymphocytes # 0.9 L (1.0-4.8) k/uL Monocytes # 0.6 (0-1.0) k/uL Eosinophils # 0.2 (0-0.7) k/uL Basophils # 0.0 (0-0.2) k/uL PT (9.0-12.0) sec INR (<1.2) APTT (22.0-30.0) sec Sodium 136 L (137-145) mmol/L Potassium 3.5 (3.5-5.1) mmol/L Chloride 95 L (98-107) mmol/L Carbon Dioxide 34 H (22-30) mmol/L Anion Gap 7 mmol/L BUN 18 H (7-17) mg/dL Creatinine 0.85 (0.52-1.04) mg/dL Est GFR (CKD-EPI)AfAm 80 (>60 ml/min/1.73 sqM) Est GFR (CKD-EPI)NonAf 69 (>60 ml/min/1.73 sqM) Glucose 103 H (74-99) mg/dL Calcium 8.9 (8.4-10.2) mg/dL Total Bilirubin 0.5 (0.2-1.3) mg/dL AST 27 (14-36) U/L ALT 49 (9-52) U/L Alkaline Phosphatase 92 (38-126) U/L Troponin I (0.000-0.034) ng/mL NT-Pro-B Natriuret Pep 102 pg/mL Total Protein 6.1 L (6.3-8.2) g/dL Albumin 3.4 L (3.5-5.0) g/dL Influenza Type A RNA (Not Detectd) Influenza Type B (PCR) (Not Detectd) 02/07/19 02/07/19 02/07/19 Range/Units 22:42 22:42 23:13 WBC (3.8-10.6) k/uL RBC (3.80-5.40) m/uL Hgb (11.4-16.0) gm/dL Hct (34.0-46.0) % MCV (80.0-100.0) fL MCH (25.0-35.0) pg MCHC (31.0-37.0) g/dL RDW (11.5-15.5) % Plt Count (150-450) k/uL Neutrophils % % Lymphocytes % % Monocytes % % Eosinophils % % Basophils % % Neutrophils # (1.3-7.7) k/uL Lymphocytes # (1.0-4.8) k/uL Monocytes # (0-1.0) k/uL Eosinophils # (0-0.7) k/uL Basophils # (0-0.2) k/uL PT 9.8 (9.0-12.0) sec INR 0.9 (<1.2) APTT 20.3 L (22.0-30.0) sec Sodium (137-145) mmol/L Potassium (3.5-5.1) mmol/L Chloride (98-107) mmol/L Carbon Dioxide (22-30) mmol/L Anion Gap mmol/L BUN (7-17) mg/dL Creatinine (0.52-1.04) mg/dL Est GFR (CKD-EPI)AfAm (>60 ml/min/1.73 sqM) Est GFR (CKD-EPI)NonAf (>60 ml/min/1.73 sqM) Glucose (74-99) mg/dL Calcium (8.4-10.2) mg/dL Total Bilirubin (0.2-1.3) mg/dL AST (14-36) U/L ALT (9-52) U/L Alkaline Phosphatase (38-126) U/L Troponin I <0.012 (0.000-0.034) ng/mL NT-Pro-B Natriuret Pep pg/mL Total Protein (6.3-8.2) g/dL Albumin (3.5-5.0) g/dL Influenza Type A RNA Not Detected (Not Detectd) Influenza Type B (PCR) Not Detected (Not Detectd) - Radiology Data Radiology results: image reviewed (Chest x-ray shows bibasilar atelectasis versus scarring. Small left effusion. ) Disposition Clinical Impression: Acute exacerbation of chronic obstructive airways disease Disposition: ADMITTED IP TO THIS HOSP Is patient prescribed a controlled substance at d/c from ED?: No Referrals: Marcia Loomis DO [Primary Care Provider] - 1-2 days Decision Time: 00:41
[2019-02-07 23:22] LABS: Basophils % (A) 0 %; Eosinophils # (A) 0.2 k/uL (0-0.7); Eosinophils % (A) 2 %; HCT 30.1 % (34.0-46.0); HGB 9.7 gm/dL (11.4-16.0); Lymphocytes # (A) 0.9 k/uL (1.0-4.8); Lymphocytes % (A) 9 %; MCH 29.6 pg (25.0-35.0); MCHC 32.2 g/dL (31.0-37.0); MCV 91.9 fL (80.0-100.0); Mean Platelet Volume 7.8; Monocytes # (A) 0.6 k/uL (0-1.0); Monocytes % (A) 5 %; Neutrophils # (A) 9.1 k/uL (1.3-7.7); Neutrophils % (A) 84 %; Platelet Count 352 k/uL (150-450); RBC 3.28 m/uL (3.80-5.40); RDW 15.8 % (11.5-15.5); WBC 10.9 k/uL (3.8-10.6)
[2019-02-07 23:38] LABS: Albumin 3.4 g/dL (3.5-5.0); Calcium 8.9 mg/dL (8.4-10.2); Potassium 3.5 mmol/L (3.5-5.1); Total Bilirubin 0.5 mg/dL (0.2-1.3); Total Protein 6.1 g/dL (6.3-8.2)
[2019-02-07 23:39] LABS: INR 0.9 (<1.2); Prothrombin Time 9.8 sec (9.0-12.0)
[2019-02-07 23:42] LABS: Partial Thromboplastin Time 20.3 sec (22.0-30.0)
--- NOTE | 2019-02-07 23:58 | XR ---
EXAM: XR Chest, 2 Views CLINICAL HISTORY: Difficulty breathing. TECHNIQUE: Frontal and lateral views of the chest. COMPARISON: CXR dated 12/09/2018. FINDINGS: Lungs: Low lung volumes with stable basilar atelectasis versus scarring. Pleural space: Stable blunting of left costophrenic angle suggestive of small effusion or pleuroparenchymal disease. No evidence of pneumothorax. Heart: Moderate enlargement of cardiac silhouette, stable. Mediastinum: Stable mediastinal contours. Bones/joints: Stable osseous structures. IMPRESSION: 1. Low lung volumes with stable basilar atelectasis versus scarring. 2. Stable blunting of left costophrenic angle suggestive of small effusion and/or pleuroparenchymal disease.
[2019-02-08] MEDS: methylPREDNISolone SOD SUCCI 125 MG/2 ML VIAL IV SCH ×4 (05:49→23:37)
[2019-02-08] MEDS: AZITHROMYCIN 500 MG TAB PO SCH (07:15)
[2019-02-08] MEDS: IPRATROPIUM-ALBUTEROL 3 ML NEB INHALATION SCH ×4 (08:24→19:58)
[2019-02-08 12:18] LABS: Glucose,Whole Blood 150 mg/dL (75-99)
[2019-02-08] MEDS: FUROSEMIDE 10 MG/ML 2 ML VIAL IV SCH ×2 (12:30→20:34)
--- NOTE | 2019-02-08 14:18 | P.CNPUL ---
History of Present Illness Consult date: 02/08/19 Requesting physician: Kimberley Sharif Reason for consult: COPD Chief complaint: Shortness of breath, cough, wheezing. History of present illness: This is a 73-year-old female with history of COPD, chronic bronchial asthma, hypertension, morbid obesity, obstructive sleep apnea syndrome, generalized anxiety disorder, former smoker, presented to the ER with a few days' history of cough wheezing shortness of breath. Patient is not the best historian, but obviously she was evaluated for the symptoms, and she was admitted with the impression of acute exacerbation of COPD/bronchial asthma. Patient denies any fever, no chills, no hemoptysis, no chest pain. Patient is maintained on bronchodilators at home in the form of albuterol updrafts 4 times a day and when necessary, and she is on chronically on dexamethasone 2 mg daily. Patient is also on Keppra for seizure disorder and on Cymbalta and Wellbutrin. Looking back at her last admission in November of 2018, patient presented with high de gree AV block, and had a temporary pacemaker implantation by cardiology. Patient did require at the time intubation and mechanical ventilation, and she was hypotensive requiring norepinephrine and dopamine. We were actually involved in the care of this patient on the last admission, and her medical problems included aspiration pneumonia, sepsis, complete heart block, hypoxic respiratory failure, lactic acidosis, renal failure, shock liver, patient was in the hospital at the time for almost 3 weeks. She was eventually discharged on 12/17/2018. Patient was transferred back then to [facility] for rehab. Review of Systems Patient is a very poor historian, 14 point review of systems attempted, please refer to pertinent positives in HPI, otherwise remaining systems are relatively negative. 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 History of Any Multi-Drug Resistant Organisms: None Reported Past Surgical History: Cholecystectomy, Tonsillectomy Past Anesthesia/Blood Transfusion Reactions: No Reported Reaction Past Psychological History: Anxiety, Depression Smoking Status: Former smoker Past Alcohol Use History: None Reported Past Drug Use History: None Reported - Past Family History Mother Family Medical History: Asthma Additional Family Medical History / Comment(s): depression Father Additional Family Medical History / Comment(s): ETOH Medications and Allergies Home Medications Medication Instructions Recorded Confirmed Type Albuterol Nebulized [Ventolin 2.5 mg INHALATION RT-DAILY 03/22/17 02/08/19 History Nebulized] Aspirin EC [Ecotrin Low Dose] 81 mg PO HS 03/22/17 02/08/19 History Dexamethasone [Hexadrol] 2 mg PO DAILY 03/22/17 02/08/19 History Ergocalciferol [Vitamin D2 50,000 unit PO MO 03/22/17 02/08/19 History (DRISDOL)] Montelukast [Singulair] 10 mg PO DAILY 03/22/17 02/08/19 History levETIRAcetam [Keppra] 500 mg PO BID 03/22/17 02/08/19 History Esomeprazole Magnesium [NexIUM] 40 mg PO BID 03/24/18 02/08/19 History Folic Acid 1 mg PO DAILY 03/24/18 02/08/19 History DULoxetine HCL [Cymbalta] 30 mg PO DAILY 11/25/18 02/08/19 History buPROPion HCL [Wellbutrin SR] 100 mg PO BID 11/25/18 02/08/19 History ALPRAZolam [Xanax] 0.25 mg PO BID PRN #6 tab 12/17/18 02/08/19 Rx Acetaminophen [Tylenol Arthritis] 650 mg PO DAILY PRN 02/08/19 02/08/19 History Albuterol Sulfate [Proair Hfa] 1 - 2 puff INHALATION RT-Q6H PRN 02/08/19 02/08/19 History Docusate [Colace] 100 mg PO DAILY 02/08/19 02/08/19 History Fluticasone/Vilanterol [Breo 1 puff INHALATION RT-DAILY 02/08/19 02/08/19 History Ellipta 100-25 Mcg Inhaler] Furosemide [Lasix] 60 mg PO DAILY 02/08/19 02/08/19 History Lisinopril [Zestril] 5 mg PO DAILY 02/08/19 02/08/19 History Teriparatide [Forteo] 20 mcg SQ HS 02/08/19 02/08/19 History Allergies Allergy/AdvReac Type Severity Reaction Status Date / Time Penicillins Allergy Rash/Hives Verified 02/08/19 08:08 Physical Exam Vitals: Vital Signs Temp Pulse Pulse Resp BP BP Pulse Ox 02/08/19 12:11 84 02/08/19 11:57 84 02/08/19 08:40 88 78 18 02/08/19 08:24 88 02/08/19 04:18 97.9 F 78 18 149/82 96 02/08/19 01:43 97.6 F 82 20 187/88 96 02/08/19 01:01 81 18 133/66 96 02/08/19 00:04 85 02/07/19 23:55 78 02/07/19 22:30 98.0 F 82 18 116/64 98 Intake and Output 02/07/19 02/08/19 02/08/19 21:59 06:59 14:59 Other: Voiding Method Bedside Commode # Voids 1 Weight Physical Exam: Revealed a 73-year-old female, obese, anxious, quite talkative, in no distress. Head: Atraumatic, normocephalic, however the patient looks quite cushingoid. HEENT:[Neck is supple.] [No neck masses.] [No thyromegaly.] [No JVD.] PERRLA, EOMI, no icterus, supraclavicular fullness noted mostly fat pads. Related to chronic use of steroids, Chest: [Diffuse rhonchi and wheezes noted bilaterally. Symmetrical chest expansion, no chest wall tenderness. Cardiac Exam: [Normal S1 and S2, no S3 gallop, no murmur.] Abdomen: [Obese, Soft, nontender, no megaly, no rebound, no guarding, normal bowel sounds.] Extremities: [No clubbing, 2+ bipedal edema, no cyanosis.] Good pulses bilaterally Neurological Exam: Alert and oriented 3, no gross focal neurologic deficit. Psychiatric: Anxious, normal affect, relatively normal mental status examination. Lymphatics: Supraclavicular fullness noted but no lymphadenopathy. Results - Laboratory Findings CBC and BMP: 02/07/19 22:42 02/07/19 22:42 PT/INR, D-dimer PT 9.8 sec (9.0-12.0) 02/07/19 22:42 INR 0.9 (<1.2) 02/07/19 22:42 Abnormal lab findings: Abnormal Labs 02/07/19 02/07/19 02/07/19 22:42 22:42 22:42 WBC 10.9 H RBC 3.28 L Hgb 9.7 L Hct 30.1 L RDW 15.8 H Neutrophils # 9.1 H Lymphocytes # 0.9 L APTT 20.3 L Sodium 136 L Chloride 95 L Carbon Dioxide 34 H BUN 18 H Glucose 103 H POC Glucose (mg/dL) Total Protein 6.1 L Albumin 3.4 L 02/08/19 12:16 WBC RBC Hgb Hct RDW Neutrophils # Lymphocytes # APTT Sodium Chloride Carbon Dioxide BUN Glucose POC Glucose (mg/dL) 150 H Total Protein Albumin - Diagnostic Findings Chest x-ray: image reviewed (Chest x-ray showed low lung volumes, basilar atelectasis and scarring I suspect mostly pleural parenchymal scarring. No clear-cut evidence of pneumonia.) Assessment and Plan Assessment: Impression: 1 acute COPD exacerbation. And purulent tracheobronchitis. No clear-cut evidence of pneumonia based on the chest x-ray, I believe the findings are pleural parenchymal scarring and atelectasis. 2 chronic cor pulmonale 3 history of obstructive sleep apnea syndrome 4 multiple comorbidities based on the last admission including aspiration pneumonia, sepsis, history of third-degree AV block, fluid overload and anasarca, history of respiratory failure requiring intubation and mechanical ventilation, Recommendation: Patient was seen and evaluated, I have recommended that we continue updrafts in the form of albuterol and Atrovent 4 times a day and when necessary, I recommended Lasix for her cor pulmonale and significant swelling of lower extremities, recommended Zithromax only for tracheobronchitis, I will also recommended methylprednisolone, and Pulmicort as well as Perforomist for her COPD symptoms. Expect the patient to do well, and we'll reevaluate in the next 24 hours. Time with Patient: Less than 30
--- NOTE | 2019-02-08 15:50 | P.HPIM ---
History of Present Illness H&P Date: 02/08/19 Isabel Irene is a 73-year-old female with history of COPD, chronic bronchial asthma, hypertension, morbid obesity, obstructive sleep apnea syndrome, generalized anxiety disorder, former smoker, presented to the ER with a few days' history of cough wheezing shortness of breath. Patient is not the best historian, but obviously she was evaluated for the symptoms, and she was admitted with the impression of acute exacerbation of COPD/bronchial asthma. Patient denies any fever, no chills, no hemoptysis, no chest pain. Patient is maintained on bronchodilators at home in the form of albuterol updrafts 4 times a day and when necessary, and she is on chronically on dexamethasone 2 mg daily. Patient is also on Keppra for seizure disorder and on Cymbalta and Wellbutrin. Looking back at her last admission in November of 2018, patient presented with high degree AV block, and had a temporary pacemaker implantation by cardiology. Patient did require at the time intubation and mechanical ventilation, and she was hypotensive requiring norepinephrine and dopamine. We were actually involved in the care of this patient on the last admission, and her medical problems included aspiration pneumonia, sepsis, complete heart block, hypoxic respiratory failure, lactic acidosis, renal failure, shock liver, patient was in the hospital at the time for almost 3 weeks. She was eventually discharged on 12/17/2018. Patient was transferred back then to [facility] for rehab. 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 History of Any Multi-Drug Resistant Organisms: None Reported Past Surgical History: Cholecystectomy, Tonsillectomy Past Anesthesia/Blood Transfusion Reactions: No Reported Reaction Past Psychological History: Anxiety, Depression Smoking Status: Former smoker Past Alcohol Use History: None Reported Past Drug Use History: None Reported - Past Family History Mother Family Medical History: Asthma Additional Family Medical History / Comment(s): depression Father Additional Family Medical History / Comment(s): ETOH Medications and Allergies Home Medications Medication Instructions Recorded Confirmed Type Albuterol Nebulized [Ventolin 2.5 mg INHALATION RT-DAILY 03/22/17 02/08/19 History Nebulized] Aspirin EC [Ecotrin Low Dose] 81 mg PO HS 03/22/17 02/08/19 History Dexamethasone [Hexadrol] 2 mg PO DAILY 03/22/17 02/08/19 History Ergocalciferol [Vitamin D2 50,000 unit PO MO 03/22/17 02/08/19 History (DRISDOL)] Montelukast [Singulair] 10 mg PO DAILY 03/22/17 02/08/19 History levETIRAcetam [Keppra] 500 mg PO BID 03/22/17 02/08/19 History Esomeprazole Magnesium [NexIUM] 40 mg PO BID 03/24/18 02/08/19 History Folic Acid 1 mg PO DAILY 03/24/18 02/08/19 History DULoxetine HCL [Cymbalta] 30 mg PO DAILY 11/25/18 02/08/19 History buPROPion HCL [Wellbutrin SR] 100 mg PO BID 11/25/18 02/08/19 History ALPRAZolam [Xanax] 0.25 mg PO BID PRN #6 tab 12/17/18 02/08/19 Rx Acetaminophen [Tylenol Arthritis] 650 mg PO DAILY PRN 02/08/19 02/08/19 History Albuterol Sulfate [Proair Hfa] 1 - 2 puff INHALATION RT-Q6H PRN 02/08/19 02/08/19 History Docusate [Colace] 100 mg PO DAILY 02/08/19 02/08/19 History Fluticasone/Vilanterol [Breo 1 puff INHALATION RT-DAILY 02/08/19 02/08/19 History Ellipta 100-25 Mcg Inhaler] Furosemide [Lasix] 60 mg PO DAILY 02/08/19 02/08/19 History Lisinopril [Zestril] 5 mg PO DAILY 02/08/19 02/08/19 History Teriparatide [Forteo] 20 mcg SQ HS 02/08/19 02/08/19 History Allergies Allergy/AdvReac Type Severity Reaction Status Date / Time Penicillins Allergy Rash/Hives Verified 02/08/19 08:08 Physical Exam Vitals: Vital Signs Temp Pulse Pulse Resp BP BP Pulse Ox 02/08/19 14:03 78 18 02/08/19 13:15 97.7 F 90 18 144/67 99 02/08/19 12:11 84 02/08/19 11:57 84 02/08/19 08:40 88 78 18 02/08/19 08:24 88 02/08/19 04:18 97.9 F 78 18 149/82 96 02/08/19 01:43 97.6 F 82 20 187/88 96 02/08/19 01:01 81 18 133/66 96 02/08/19 00:04 85 02/07/19 23:55 78 02/07/19 22:30 98.0 F 82 18 116/64 98 Intake and Output 02/08/19 02/08/19 02/08/19 06:59 14:59 22:59 Intake Total 240 Balance 240 Intake: Oral 240 Other: Voiding Method Bedside Commode # Voids 2 Weight In general patient is alert and oriented 3 in no apparent distress HEENT: Normocephalic and atraumatic with features related to chronic steroid use Neck is supple no JVD no goiter no lymphadenopathy Chest: Scattered rhonchi and wheezing bilaterally Cardiac: Regular heart sounds S1 and S2 no gallops no murmurs Abdomen: Soft nontender no organomegaly with normal bowel sounds Extremities exam reveals 2+ edema bilaterally no cyanosis or clubbing Neuro: No gross focal neurological deficit Results CBC & Chem 7: 02/07/19 22:42 02/07/19 22:42 Labs: Abnormal Lab Results - Last 24 Hours (Table) 02/07/19 02/07/19 02/07/19 Range/Units 22:42 22:42 22:42 WBC 10.9 H (3.8-10.6) k/uL RBC 3.28 L (3.80-5.40) m/uL Hgb 9.7 L (11.4-16.0) gm/dL Hct 30.1 L (34.0-46.0) % RDW 15.8 H (11.5-15.5) % Neutrophils # 9.1 H (1.3-7.7) k/uL Lymphocytes # 0.9 L (1.0-4.8) k/uL APTT 20.3 L (22.0-30.0) sec Sodium 136 L (137-145) mmol/L Chloride 95 L (98-107) mmol/L Carbon Dioxide 34 H (22-30) mmol/L BUN 18 H (7-17) mg/dL Glucose 103 H (74-99) mg/dL POC Glucose (mg/dL) (75-99) mg/dL Total Protein 6.1 L (6.3-8.2) g/dL Albumin 3.4 L (3.5-5.0) g/dL 02/08/19 Range/Units 12:16 WBC (3.8-10.6) k/uL RBC (3.80-5.40) m/uL Hgb (11.4-16.0) gm/dL Hct (34.0-46.0) % RDW (11.5-15.5) % Neutrophils # (1.3-7.7) k/uL Lymphocytes # (1.0-4.8) k/uL APTT (22.0-30.0) sec Sodium (137-145) mmol/L Chloride (98-107) mmol/L Carbon Dioxide (22-30) mmol/L BUN (7-17) mg/dL Glucose (74-99) mg/dL POC Glucose (mg/dL) 150 H (75-99) mg/dL Total Protein (6.3-8.2) g/dL Albumin (3.5-5.0) g/dL Thrombosis Risk Factor Assmnt - Choose All That Apply Any of the Below Risk Factors Present?: Yes Each Factor Represents 1 point: Abnormal pulmonary function (COPD), Obesity (BMI >25), Swollen legs (current) Thrombosis Risk Factor Assessment Total Risk Factor Score: 3 Thrombosis Risk Factor Assessment Level: Moderate Risk Assessment and Plan Plan: #1 acute COPD exacerbation #2 acute purulent bronchitis #3 underlying history of chronic cor pulmonale #4 underlying history of obstructive sleep apnea #5 underlying history of depression and anxiety disorder #6 underlying history of seizure disorder maintained on At this time patient was started on IV antibiotic, IV steroids, inhaled bronchodilators, and IV diuretics She seems to be improving will continue was current management will follow closely
[2019-02-08] MEDS: DOCUSATE 100 MG CAP PO SCH (16:28)
[2019-02-08] MEDS: PANTOPRAZOLE 40 MG TABLET PO SCH (16:28)
[2019-02-08] MEDS: ALPRAZolam 0.25 MG TAB PO PRN (16:28)
[2019-02-08] MEDS: DULoxetine HCL 30 MG CAPSULE.DR PO SCH (16:28)
[2019-02-08] MEDS: buPROPion SR 100 MG TABLET.ER PO SCH (16:29)
[2019-02-08 16:43] LABS: Glucose,Whole Blood 129 mg/dL (75-99)
[2019-02-08] MEDS: INSULIN ASPART (NovoLOG) 100 UNIT/ML VIAL SQ SCH ×2 (17:04→20:34)
[2019-02-08] MEDS: FORMOTEROL FUMARATE 20 MCG/2 ML NEBU INHALATION SCH (19:58)
[2019-02-08] MEDS: BUDESONIDE 1 MG/2 ML NEBU INHALATION SCH (19:58)
[2019-02-08 20:26] LABS: Glucose,Whole Blood 150 mg/dL (75-99)
[2019-02-08] MEDS: levETIRAcetam 500 MG TAB PO SCH (20:34)
[2019-02-08] MEDS: ASPIRIN 81 MG PO SCH (20:34)
[2019-02-08] MEDS: IPRATROPIUM-ALBUTEROL 3 ML NEB INHALATION PRN (23:35)
[2019-02-09] MEDS: IPRATROPIUM-ALBUTEROL 3 ML NEB INHALATION PRN (03:27)
[2019-02-09] MEDS: methylPREDNISolone SOD SUCCI 125 MG/2 ML VIAL IV SCH ×3 (05:38→17:39)
[2019-02-09] MEDS: ACETAMINOPHEN TAB 325 MG TAB PO PRN ×2 (05:57→21:27)
[2019-02-09 07:01] LABS: Glucose,Whole Blood 163 mg/dL (75-99)
[2019-02-09] MEDS: FORMOTEROL FUMARATE 20 MCG/2 ML NEBU INHALATION SCH ×2 (07:09→19:33)
[2019-02-09] MEDS: IPRATROPIUM-ALBUTEROL 3 ML NEB INHALATION SCH ×5 (07:09→19:33)
[2019-02-09] MEDS: BUDESONIDE 1 MG/2 ML NEBU INHALATION SCH ×2 (07:09→19:33)
[2019-02-09] MEDS ORDERED: ALBUTEROL NEBULIZED 2.5 MG/3 ML INHALATION SCH (08:00)
[2019-02-09] MEDS ORDERED: NON-FORMULARY DRUG (Fluticasone/Vilanterol [Breo Ellipta 100-25 Mcg Inhaler] 1 PUFF) INHALATION SCH (08:00)
[2019-02-09] MEDS: levETIRAcetam 500 MG TAB PO SCH ×2 (08:07→21:26)
[2019-02-09] MEDS: INSULIN ASPART (NovoLOG) 100 UNIT/ML VIAL SQ SCH ×4 (08:08→21:26)
[2019-02-09] MEDS: DOCUSATE 100 MG CAP PO SCH (08:08)
[2019-02-09] MEDS: AZITHROMYCIN 500 MG TAB PO SCH (08:08)
[2019-02-09] MEDS: FUROSEMIDE 10 MG/ML 2 ML VIAL IV SCH ×3 (08:08→21:26)
[2019-02-09] MEDS: DULoxetine HCL 30 MG CAPSULE.DR PO SCH (08:08)
[2019-02-09] MEDS: buPROPion SR 100 MG TABLET.ER PO SCH ×2 (08:08→21:26)
[2019-02-09] MEDS: PANTOPRAZOLE 40 MG TABLET PO SCH ×2 (08:08→17:41)
[2019-02-09] MEDS ORDERED: ERGOCALCIFEROL 50,000 UNIT CAP PO SCH (09:00)
[2019-02-09] MEDS ORDERED: FUROSEMIDE 20 MG TAB PO SCH (09:00)
--- NOTE | 2019-02-09 10:18 | P.PN ---
Subjective Progress Note Date: 02/09/19 Isabel Irene is a 73-year-old female with history of COPD, chronic bronchial asthma, hypertension, morbid obesity, obstructive sleep apnea syndrome, generalized anxiety disorder, former smoker, presented to the ER with a few days' history of cough wheezing shortness of breath. Patient is not the best or storian, but obviously she was evaluated for the symptoms, and she was admitted with the impression of acute exacerbation of COPD/bronchial asthma. Patient denies any fever, no chills, no hemoptysis, no chest pain. Patient is maintained on bronchodilators at home in the form of albuterol updrafts 4 times a day and when necessary, and she is on chronically on dexamethasone 2 mg daily. Patient is also on Keppra for seizure disorder and on Cymbalta and Wellbutrin. Looking back at her last admission in November of 2018, patient presented with high degree AV block, and had a temporary pacemaker implantation by cardiology. Patient did require at the time intubation and mechanical ventilation, and she was hypotensive requiring norepinephrine and dopamine. We were actually involved in the care of this patient on the last admission, and her medical problems included aspiration pneumonia, sepsis, complete heart block, hypoxic respiratory failure, lactic acidosis, renal failure, shock liver, patient was in the hospital at the time for almost 3 weeks. She was eventually discharged on 12/17/2018. Patient was transferred back then to [facility] for rehab. 02/09/2019 patient is alert and oriented currently sitting up in chair. Patient does report that she feels like her breathing is improved from yesterday. At this time patient remains on IV Lasix, IV Solu-Medrol and antibiotics. Pulm onary services are following. Patient does report some shortness of breath activity. Patient denies chest pain. Patient denies nausea vomiting or diarrhea. Patient denies any urinary burning or frequency Objective - Vital Signs Vital signs: Vital Signs Temp 98.1 F 02/09/19 07:00 Pulse 98 02/09/19 07:25 Resp 17 02/09/19 07:00 BP 149/78 02/09/19 07:00 Pulse Ox 93 L 02/09/19 07:00 Intake & Output 02/08/19 02/09/19 02/09/19 18:59 06:59 18:59 Intake Total 240 Balance 240 Weight 114 kg Intake: Oral 240 Other: Voiding Method Bedside Commode Bedside Commode # Voids 2 2 - Exam In general patient is alert and oriented 3 in no apparent distress HEENT: Normocephalic and atraumatic with features related to chronic steroid use Neck is supple no JVD no goiter no lymphadenopathy Chest: Scattered rhonchi and wheezing bilaterally Cardiac: Regular heart sounds S1 and S2 no gallops no murmurs Abdomen: Soft nontender no organomegaly with normal bowel sounds Extremities exam reveals 2+ edema bilaterally no cyanosis or clubbing Neuro: No gross focal neurological deficit - Labs CBC & Chem 7: 02/07/19 22:42 02/07/19 22:42 Labs: Abnormal Lab Results - Last 24 Hours (Table) 02/08/19 02/08/19 02/08/19 Range/Units 12:16 16:41 20:25 POC Glucose (mg/dL) 150 H 129 H 150 H (75-99) mg/dL 02/09/19 Range/Units 07:00 POC Glucose (mg/dL) 163 H (75-99) mg/dL Assessment and Plan Assessment: #1 acute COPD exacerbation #2 acute purulent bronchitis #3 underlying history of chronic cor pulmonale #4 underlying history of obstructive sleep apnea #5 underlying history of depression and anxiety disorder #6 underlying history of seizure disorder maintained on At this time patient was started on IV antibiotic, IV steroids, inhaled bronchodilators, and IV diuretics She seems to be improving will continue was current management will follow closely DVT prophylaxis Lovenox. GI prophylaxis Protonix I performed an examination of the patient and discussed their management with the Nurse Practitioner. I have reviewed the Nurse Practitioner's notes and agree with the documented findings and plan of care
[2019-02-09 11:28] LABS: Glucose,Whole Blood 144 mg/dL (75-99)
[2019-02-09 11:55] LABS: Basophils % (A) 0 %; Eosinophils % (A) 0 %; HCT 32.5 % (34.0-46.0); HGB 10.2 gm/dL (11.4-16.0); Lymphocytes # (A) 0.5 k/uL (1.0-4.8); Lymphocytes % (A) 3 %; MCHC 31.5 g/dL (31.0-37.0); Mean Platelet Volume 6.5; Monocytes # (A) 0.9 k/uL (0-1.0); Monocytes % (A) 6 %; Neutrophils # (A) 13.1 k/uL (1.3-7.7); Neutrophils % (A) 89 %; Platelet Count 457 k/uL (150-450); RBC 3.53 m/uL (3.80-5.40); RDW 15.6 % (11.5-15.5); WBC 14.7 k/uL (3.8-10.6)
[2019-02-09 12:11] LABS: Albumin 4.1 g/dL (3.5-5.0); Calcium 9.3 mg/dL (8.4-10.2); Total Bilirubin 0.5 mg/dL (0.2-1.3)
[2019-02-09] MEDS: FOLIC ACID 1 MG TAB PO SCH (13:29)
--- NOTE | 2019-02-09 15:30 | PN ---
PROGRESS NOTE 73-year-old female well known to our service. She has history of underlying COPD/chronic bronchial asthma as well as a history of hypertension, morbid obesity, sleep apnea syndrome, anxiety, and previous history of tobacco use, who presents to the emergency department with complaints of increasing shortness of breath, cough, wheezing and chest congestion. The patient was in the hospital in December for a number of days. She was initially intubated in the ICU, was eventually extubated, transferred out to the floor where she spent almost 2 weeks in the hospital for her COPD exacerbation. She also was found at that time to have congestive heart failure. She apparently had been doing relatively well and more recently had issues with shortness of breath and she was concerned that she might develop a similar episode to the last time she was here. The patient spent some time in [facility] after discharge from the hospital back in December. I believe her primary care physician is Dr. Marcia Loomis. The patient did require a pacemaker because of complete heart block on her last admission. PAST MEDICAL HISTORY: Her past medical history includes asthma, COPD, heart failure, hypertension, DJD, sleep apnea syndrome, osteoporosis, and hydrocephalus. Today she is doing much better. She is sitting at the bedside. She is feeling improved. She has got oxygen in place. She is not back to baseline, but she is much better than she was yesterday in consultation when seen by my partner. PHYSICAL EXAMINATION: Current vital signs are reviewed. Temperature is 98.3 heart rate 94, respiratory rate 17, blood pressure 164/75 mean 104. 2 L saturation 95%. Appears in no acute distress. HEENT examination is grossly unremarkable. Mucous membranes are moist. NECK: Supple. Full range of motion. No adenopathy or thyromegaly. Neck veins are flat. Cardiovascular examination reveals regular rhythm and rate. Heart rate 90, S1, S2 normal. Heart sounds are distant. No S3, S4. No distinct murmur noted. Lungs reveal diffuse inspiratory and expiratory wheezes. Breath sounds are diminished. There is prolongation on forced maneuver. Breath sounds are equal bilaterally but diminished throughout. Abdomen is obese. Bowel sounds are heard. Extremities are intact. Slight edema noted. Skin without rash. Neurologic examination is brief but nonfocal. LABS: Reviewed. White count 14.7, hemoglobin 10.2, hematocrit 32.5, platelet count 457,000. Sodium 135, potassium 4, chloride 90, CO2 36, anion gap is 9. BUN and creatinine were 25 and 1.05. Microbiology is pending or negative. Labs are reviewed. Chest x-ray from the shows some bibasilar atelectasis and scarring with some costophrenic angle blunting. ASSESSMENT: 1. Chronic obstructive pulmonary disease exacerbation complicated by purulent tracheobronchitis, without clear-cut pneumonia. 2. Bibasilar atelectasis and scarring. 3. Chronic cor pulmonale. 4. History of obstructive sleep apnea syndrome. 5. Obesity. 6. History of aspiration pneumonia. 7. History of sepsis. 8. History of third-degree heart block. 9. Previous episode of respiratory failure requiring intubation and mechanical ventilation. 10.Multiple other medical problems and comorbidities. PLAN: The patient is doing relatively well. Medications are reviewed. They were updated by my partner yesterday. She is feeling better today. We will continue to follow. Hopeful discharge in next couple days or so. She did have a prolonged hospitalization on her last visit. MMODL / IJN: [id number] /
[2019-02-09 16:51] LABS: Glucose,Whole Blood 234 mg/dL (75-99)
[2019-02-09 21:12] LABS: Glucose,Whole Blood 187 mg/dL (75-99)
[2019-02-09] MEDS: ASPIRIN 81 MG PO SCH (21:25)
[2019-02-09] MEDS: ALPRAZolam 0.25 MG TAB PO PRN (21:27)
[2019-02-10] MEDS: methylPREDNISolone SOD SUCCI 125 MG/2 ML VIAL IV SCH ×2 (06:11)
[2019-02-10] MEDS ORDERED: FUROSEMIDE 10 MG/ML 2 ML VIAL IV ONE (06:27)
[2019-02-10] MEDS: FORMOTEROL FUMARATE 20 MCG/2 ML NEBU INHALATION SCH ×2 (06:51→20:26)
[2019-02-10] MEDS: IPRATROPIUM-ALBUTEROL 3 ML NEB INHALATION SCH ×4 (06:51→20:26)
[2019-02-10] MEDS: BUDESONIDE 1 MG/2 ML NEBU INHALATION SCH ×2 (06:51→20:25)
[2019-02-10 07:02] LABS: Glucose,Whole Blood 197 mg/dL (75-99)
[2019-02-10] MEDS: INSULIN ASPART (NovoLOG) 100 UNIT/ML VIAL SQ SCH ×4 (07:30→21:19)
[2019-02-10] MEDS: FUROSEMIDE 10 MG/ML 2 ML VIAL IV SCH ×2 (07:37→21:20)
[2019-02-10] MEDS: MONTELUKAST 10 MG TAB PO SCH (07:38)
[2019-02-10] MEDS: ENOXAPARIN 40 MG/0.4 ML SYRINGE SQ SCH (07:38)
[2019-02-10] MEDS: PANTOPRAZOLE 40 MG TABLET PO SCH ×2 (07:39→17:12)
[2019-02-10] MEDS: AZITHROMYCIN 500 MG TAB PO SCH (07:39)
[2019-02-10] MEDS: DOCUSATE 100 MG CAP PO SCH (07:39)
[2019-02-10] MEDS: levETIRAcetam 500 MG TAB PO SCH ×2 (07:39→21:20)
[2019-02-10] MEDS: DULoxetine HCL 30 MG CAPSULE.DR PO SCH (07:39)
[2019-02-10] MEDS: buPROPion SR 100 MG TABLET.ER PO SCH ×2 (07:39→21:20)
[2019-02-10] MEDS: ALPRAZolam 0.25 MG TAB PO PRN ×2 (07:48→21:38)
[2019-02-10] MEDS: ACETAMINOPHEN TAB 325 MG TAB PO PRN (08:00)
[2019-02-10 08:53] LABS: Basophils % (A) 0 %; Eosinophils % (A) 0 %; HGB 10.2 gm/dL (11.4-16.0); Lymphocytes # (A) 0.4 k/uL (1.0-4.8); Lymphocytes % (A) 4 %; MCH 30.4 pg (25.0-35.0); MCHC 32.8 g/dL (31.0-37.0); MCV 92.7 fL (80.0-100.0); Mean Platelet Volume 6.2; Monocytes # (A) 0.4 k/uL (0-1.0); Monocytes % (A) 4 %; Neutrophils # (A) 8.9 k/uL (1.3-7.7); Neutrophils % (A) 92 %; Platelet Count 415 k/uL (150-450); RBC 3.35 m/uL (3.80-5.40); RDW 15.5 % (11.5-15.5); WBC 9.7 k/uL (3.8-10.6)
[2019-02-10] MEDS ORDERED: LISINOPRIL 5 MG TAB PO SCH (09:00)
[2019-02-10 09:07] LABS: Calcium 8.8 mg/dL (8.4-10.2); Potassium 3.9 mmol/L (3.5-5.1); Total Bilirubin 0.5 mg/dL (0.2-1.3); Total Protein 6.6 g/dL (6.3-8.2)
--- NOTE | 2019-02-10 10:16 | P.PN ---
Subjective Progress Note Date: 02/10/19 Isabel Irene is a 73-year-old female with history of COPD, chronic bronchial asthma, hypertension, morbid obesity, obstructive sleep apnea syndrome, generalized anxiety disorder, former smoker, presented to the ER with a few days' history of cough wheezing shortness of breath. Patient is not the best or storian, but obviously she was evaluated for the symptoms, and she was admitted with the impression of acute exacerbation of COPD/bronchial asthma. Patient denies any fever, no chills, no hemoptysis, no chest pain. Patient is maintained on bronchodilators at home in the form of albuterol updrafts 4 times a day and when necessary, and she is on chronically on dexamethasone 2 mg daily. Patient is also on Keppra for seizure disorder and on Cymbalta and Wellbutrin. Looking back at her last admission in November of 2018, patient presented with high degree AV block, and had a temporary pacemaker implantation by cardiology. Patient did require at the time intubation and mechanical ventilation, and she was hypotensive requiring norepinephrine and dopamine. We were actually involved in the care of this patient on the last admission, and her medical problems included aspiration pneumonia, sepsis, complete heart block, hypoxic respiratory failure, lactic acidosis, renal failure, shock liver, patient was in the hospital at the time for almost 3 weeks. She was eventually discharged on 12/17/2018. Patient was transferred back then to [facility] for rehab. 02/09/2019 patient is alert and oriented currently sitting up in chair. Patient does report that she feels like her breathing is improved from yesterday. At this time patient remains on IV Lasix, IV Solu-Medrol and antibiotics. Pulm onary services are following. Patient does report some shortness of breath activity. Patient denies chest pain. Patient denies nausea vomiting or diarrhea. Patient denies any urinary burning or frequency On 02/10/2019 patient is currently alert and oriented resting in bed. At this time patient has increased wheezing throughout. Patient is currently on IV steroids. Discussed with pulmonary CAUSTIC ROOM OPERATOR. Patient was switched over to prednisone due to patient stating she has been more successful with this in the past. Chest x-ray ordered per pulmonary. The patient denies chest pain. Patient den ies nausea vomiting or diarrhea. Patient denies any urinary burning or frequency Objective - Vital Signs Vital signs: Vital Signs Temp 97.8 F 02/10/19 05:00 Pulse 88 02/10/19 07:09 Resp 18 02/10/19 05:00 BP 132/86 02/10/19 04:51 Pulse Ox 94 L 02/10/19 05:00 Intake & Output 02/09/19 02/10/19 02/10/19 18:59 06:59 18:59 Intake Total 1660 Balance 1660 Weight 117 kg Intake: Oral 1660 Other: Voiding Method Bedside Commode Bedside Commode # Voids 3 1 2 - Exam In general patient is alert and oriented 3 in no apparent distress HEENT: Normocephalic and atraumatic with features related to chronic steroid use Neck is supple no JVD no goiter no lymphadenopathy Chest: Scattered rhonchi and wheezing bilaterally Cardiac: Regular heart sounds S1 and S2 no gallops no murmurs Abdomen: Soft nontender no organomegaly with normal bowel sounds Extremities exam reveals 2+ edema bilaterally no cyanosis or clubbing Neuro: No gross focal neurological deficit - Labs CBC & Chem 7: 02/10/19 08:30 02/10/19 08:30 Labs: Abnormal Lab Results - Last 24 Hours (Table) 02/09/19 02/09/19 02/09/19 Range/Units 11:08 11:08 11:27 WBC 14.7 H (3.8-10.6) k/uL RBC 3.53 L (3.80-5.40) m/uL Hgb 10.2 L (11.4-16.0) gm/dL Hct 32.5 L (34.0-46.0) % RDW 15.6 H (11.5-15.5) % Plt Count 457 H (150-450) k/uL Neutrophils # 13.1 H (1.3-7.7) k/uL Lymphocytes # 0.5 L (1.0-4.8) k/uL Sodium 135 L (137-145) mmol/L Chloride 90 L (98-107) mmol/L Carbon Dioxide 36 H (22-30) mmol/L BUN 25 H (7-17) mg/dL Creatinine 1.05 H (0.52-1.04) mg/dL Glucose 134 H (74-99) mg/dL POC Glucose (mg/dL) 144 H (75-99) mg/dL 02/09/19 02/09/1902/10/19 Range/Units 16:49 21:11 06:56 WBC (3.8-10.6) k/uL RBC (3.80-5.40) m/uL Hgb (11.4-16.0) gm/dL Hct (34.0-46.0) % RDW (11.5-15.5) % Plt Count (150-450) k/uL Neutrophils # (1.3-7.7) k/uL Lymphocytes # (1.0-4.8) k/uL Sodium (137-145) mmol/L Chloride (98-107) mmol/L Carbon Dioxide (22-30) mmol/L BUN (7-17) mg/dL Creatinine (0.52-1.04) mg/dL Glucose (74-99) mg/dL POC Glucose (mg/dL) 234 H 187 H 197 H (75-99) mg/dL 02/10/19 02/10/19 Range/Units 08:30 08:30 WBC (3.8-10.6) k/uL RBC 3.35 L (3.80-5.40) m/uL Hgb 10.2 L (11.4-16.0) gm/dL Hct 31.0 L (34.0-46.0) % RDW (11.5-15.5) % Plt Count (150-450) k/uL Neutrophils # 8.9 H (1.3-7.7) k/uL Lymphocytes # 0.4 L (1.0-4.8) k/uL Sodium 134 L (137-145) mmol/L Chloride 89 L (98-107) mmol/L Carbon Dioxide 36 H (22-30) mmol/L BUN 29 H (7-17) mg/dL Creatinine 1.07 H (0.52-1.04) mg/dL Glucose 222 H (74-99) mg/dL POC Glucose (mg/dL) (75-99) mg/dL Assessment and Plan Assessment: #1 acute COPD exacerbation #2 acute purulent bronchitis #3 underlying history of chronic cor pulmonale #4 underlying history of obstructive sleep apnea #5 underlying history of depression and anxiety disorder #6 underlying history of seizure disorder maintained on At this time patient was started on IV antibiotic, IV steroids, inhaled bronchodilators, and IV diuretics On 02/10/2019 increased wheezing. Discussed with pulmonary CAUSTIC ROOM OPERATOR. Patient transitioned to by mouth prednisone due to patient stating she's been more successful with in the past. Chest x-ray ordered per pulmonary DVT prophylaxis Lovenox. GI prophylaxis Protonix I performed an examination of the patient and discussed their management with the Nurse Practitioner. I have reviewed the Nurse Practitioner's notes and agree with the documented findings and plan of care
--- NOTE | 2019-02-10 10:23 | XR ---
EXAMINATION TYPE: XR chest 1V portable DATE OF EXAM: 02/10/2019 HISTORY: Shortness of breath. COMPARISON: 02/07/2019 TECHNIQUE: Single view of the chest is submitted. FINDINGS: Demonstrated are scattered senescent parenchymal change. Strandy basilar atelectasis and/or infiltrate persists at the left lung base. Discoid atelectasis or parenchymal scar lateral right lung base. The heart is stable. Hilar and mediastinal structures are within normal limits. Degenerative changes are seen of the dorsal spine. IMPRESSION: 1. Overall stable chest.
--- NOTE | 2019-02-10 10:29 | CDI ---
Documentation Clarification Form Date: 02/10/2019 10:15:52 AM From: Litzy Barron RN CCDS Admit Date: 02/09/2019 7:19:00 AM Patient Name: Isabel Keene Visit Number: [id number] Discharge Date: ATTENTION: The Clinical Documentation Specialists (CDI) and [facility] Coding Staff appreciate your assistance in clarifying documentation. Please respond to the clarification below the line at the bottom and electronically sign. The CDI & [facility] Coding staff will review the response and follow-up if needed. Please note: Queries are made part of the Legal Health Record. If you have any questions, please contact the author of this message via ITS. Dr. Kimberley Sharif Heart Failure is documented in the H & P 02/08/2019 History/Risk Factors: 73 y/o female presents to the ED with cough, congestion and swollen legs. Clinical Indicators: Medical Hx HTN , Heart Failure VS/Pulse OX: 116/64 98.0 82 18 98% ra on admission BNP: 102 Echocardiogram Results: 11/26/2018 Left Ventricular systolic function is low normal with, an EF 50-55% Chest X Ray: Low lung volumes with stable basilar atelectasis vs scarring. Stable blunting of left costophrenic angle suggestive of small effusion and/or pleuroparenchymal disease Treatment: Lasix , Lisinopril, In your professional opinion, can you please clarify the acuity and type of CHF if known? Systolic Heart Failure: * Acute * Chronic * Acute on Chronic Diastolic Heart Failure: * Acute * Chronic * Acute on Chronic Systolic & Diastolic Heart Failure: * Acute * Chronic * Acute on Chronic Heart Failure Unable to Determine Other, please specify Un Able to determine (Last Revision: March 2018) MTDD
[2019-02-10 12:00] LABS: Glucose,Whole Blood 206 mg/dL (75-99)
[2019-02-10] MEDS: FOLIC ACID 1 MG TAB PO SCH (12:15)
--- NOTE | 2019-02-10 12:33 | P.PN ---
Subjective Progress Note Date: 02/10/19 Principal diagnosis: The patient is seen today in follow-up on the regular medical floor. She is currently resting comfortably in bed. She is awake and alert in no acute distress. She is being treated for COPD exacerbation as well as acute exacerbation of moderate persistent bronchial asthma. She does have morbid obesity, obstructive sleep apnea, anxiety, hypertension, previous tobacco dependence, permanent pacemaker implantation. She is maintaining good O2 saturations in the 90s on 3 L/m per nasal cannula. She's been afebrile. She does feel that she does stop better on oral prednisone versus IV Solu-Medrol. White count 9.7. Hemoglobin 10.2. Creatinine 1.07. Objective - Vital Signs Vital signs: Vital Signs Temp 97.8 F 02/10/19 05:00 Pulse 86 02/10/19 10:57 Resp 18 02/10/19 08:00 BP 132/86 02/10/19 04:51 Pulse Ox 94 L 02/10/19 05:00 Intake & Output 02/09/19 02/10/19 02/10/19 18:59 06:59 18:59 Intake Total 1660 Balance 1660 Weight 117 kg Intake: Oral 1660 Other: Voiding Method Bedside Commode Bedside Commode Bedside Commode # Voids 3 1 2 - Exam GENERAL EXAM: Morbidly obese. Alert, comfortable in no apparent distress. On 2 L nasal cannula HEAD: Normocephalic. EYES: Normal reaction of pupils, equal size. NOSE: Clear with pink turbinates. THROAT: Crowding of the posterior pharynx. No erythema or exudates. NECK: No masses, no JVD. CHEST: No chest wall deformity. LUNGS: Equal air entry with end expiratory wheeze, diminished. CVS: S1 and S2 normal with no audible murmur, regular rhythm. ABDOMEN: No hepatosplenomegaly, normal bowel sounds, no guarding or rigidity. SPINE: No scoliosis or deformity SKIN: No rashes CENTRAL NERVOUS SYSTEM: No focal deficits, tone is normal in all 4 extremities. EXTREMITIES: There is 1+ peripheral edema. No clubbing, no cyanosis. Peripheral pulses are intact. - Labs CBC & Chem 7: 02/10/19 08:30 02/10/19 08:30 Labs: Abnormal Lab Results - Last 24 Hours (Table) 02/09/19 02/09/19 02/10/19 Range/Units 16:49 21:11 06:56 RBC (3.80-5.40) m/uL Hgb (11.4-16.0) gm/dL Hct (34.0-46.0) % Neutrophils # (1.3-7.7) k/uL Lymphocytes # (1.0-4.8) k/uL Sodium (137-145) mmol/L Chloride (98-107) mmol/L Carbon Dioxide (22-30) mmol/L BUN (7-17) mg/dL Creatinine (0.52-1.04) mg/dL Glucose (74-99) mg/dL POC Glucose (mg/dL) 234 H 187 H 197 H (75-99) mg/dL 02/10/19 02/10/19 02/10/19 Range/Units 08:30 08:30 11:54 RBC 3.35 L (3.80-5.40) m/uL Hgb 10.2 L (11.4-16.0) gm/dL Hct 31.0 L (34.0-46.0) % Neutrophils # 8.9 H (1.3-7.7) k/uL Lymphocytes # 0.4 L (1.0-4.8) k/uL Sodium 134 L (137-145) mmol/L Chloride 89 L (98-107) mmol/L Carbon Dioxide 36 H (22-30) mmol/L BUN 29 H (7-17) mg/dL Creatinine 1.07 H (0.52-1.04) mg/dL Glucose 222 H (74-99) mg/dL POC Glucose (mg/dL) 206 H (75-99) mg/dL Assessment and Plan Assessment: Impression: #1 Acute exacerbation of chronic obstructive pulmonary disease, complicated by purulent tracheobronchitis. No clear evidence of pneumonia. #2 By basilar atelectasis and scarring. #3 Chronic cor pulmonale. #4 History of obstructive sleep apnea. #5 Morbid obesity. #6 History of aspiration pneumonia. #7 History of sepsis. #8 History of third-degree heart block, status post permanent pacemaker implantation. #9 Previous history of acute respiratory failure requiring intubation mechanical ventilator cessation and support. Plan: The patient was seen and evaluated by Dr. Sánchez. She is improved today compared to yesterday. Not quite back to her baseline. She is requesting prednisone over IV Solu-Medrol which will start her on 60 mg daily. Continue her other pulmonary medications. Increase her activity as tolerated. We'll continue to follow. I, the cosigning physician, performed a history & physical examination of the patient. Lungs sounds with end expiratory wheeze, diminished. Maintaining good O2 saturations in the 90s on 2 L/m per nasal cannula. I discussed the assessment and plan of care with my nurse practitioner, Sonali Amanda. I attest to the above note as dictated by her.
[2019-02-10 16:47] LABS: Glucose,Whole Blood 160 mg/dL (75-99)
[2019-02-10 20:44] LABS: Glucose,Whole Blood 136 mg/dL (75-99)
[2019-02-10] MEDS: ASPIRIN 81 MG PO SCH (21:20)
[2019-02-10] MEDS: guaiFENesin-Coden 100-10MG/5ML 10 ML CUP PO PRN (21:25)
[2019-02-11] MEDS: ACETAMINOPHEN TAB 325 MG TAB PO PRN ×2 (02:09→17:31)
[2019-02-11] MEDS: guaiFENesin-Coden 100-10MG/5ML 10 ML CUP PO PRN ×3 (03:37→22:07)
[2019-02-11] MEDS: buPROPion SR 100 MG TABLET.ER PO SCH ×2 (07:18→21:00)
[2019-02-11] MEDS: levETIRAcetam 500 MG TAB PO SCH ×2 (07:18→20:59)
[2019-02-11] MEDS: MONTELUKAST 10 MG TAB PO SCH (07:18)
[2019-02-11] MEDS: ENOXAPARIN 40 MG/0.4 ML SYRINGE SQ SCH (07:19)
[2019-02-11] MEDS: FUROSEMIDE 10 MG/ML 2 ML VIAL IV SCH ×2 (07:19→21:00)
[2019-02-11] MEDS: DULoxetine HCL 30 MG CAPSULE.DR PO SCH (07:19)
[2019-02-11] MEDS: PANTOPRAZOLE 40 MG TABLET PO SCH ×2 (07:19→17:31)
[2019-02-11] MEDS: AZITHROMYCIN 500 MG TAB PO SCH (07:19)
[2019-02-11] MEDS: DOCUSATE 100 MG CAP PO SCH (07:19)
[2019-02-11 07:22] LABS: Glucose,Whole Blood 113 mg/dL (75-99)
[2019-02-11 07:24] LABS: Basophils % (A) 0 %; Eosinophils # (A) 0.1 k/uL (0-0.7); Eosinophils % (A) 1 %; HCT 31.1 % (34.0-46.0); Lymphocytes # (A) 0.7 k/uL (1.0-4.8); Lymphocytes % (A) 7 %; MCH 29.9 pg (25.0-35.0); MCHC 32.2 g/dL (31.0-37.0); MCV 92.8 fL (80.0-100.0); Mean Platelet Volume 6.1; Monocytes # (A) 0.8 k/uL (0-1.0); Monocytes % (A) 8 %; Neutrophils # (A) 8.8 k/uL (1.3-7.7); Neutrophils % (A) 84 %; Platelet Count 364 k/uL (150-450); RBC 3.35 m/uL (3.80-5.40); RDW 15.6 % (11.5-15.5); WBC 10.5 k/uL (3.8-10.6)
[2019-02-11 07:38] LABS: Albumin 3.6 g/dL (3.5-5.0); Calcium 8.8 mg/dL (8.4-10.2); Potassium 3.5 mmol/L (3.5-5.1); Total Bilirubin 0.5 mg/dL (0.2-1.3); Total Protein 6.2 g/dL (6.3-8.2)
[2019-02-11] MEDS: INSULIN ASPART (NovoLOG) 100 UNIT/ML VIAL SQ SCH ×4 (07:41→21:00)
[2019-02-11] MEDS: BUDESONIDE 1 MG/2 ML NEBU INHALATION SCH (07:50)
[2019-02-11] MEDS: FORMOTEROL FUMARATE 20 MCG/2 ML NEBU INHALATION SCH (07:50)
[2019-02-11] MEDS: IPRATROPIUM-ALBUTEROL 3 ML NEB INHALATION SCH (07:51)
[2019-02-11] MEDS ORDERED: predniSONE 20 MG TAB PO SCH (09:00)
--- NOTE | 2019-02-11 11:09 | P.PN ---
Subjective Progress Note Date: 02/11/19 Isabel Irene is a 73-year-old female with history of COPD, chronic bronchial asthma, hypertension, morbid obesity, obstructive sleep apnea syndrome, generalized anxiety disorder, former smoker, presented to the ER with a few days' history of cough wheezing shortness of breath. Patient is not the best md storian, but obviously she was evaluated for the symptoms, and she was admitted with the impression of acute exacerbation of COPD/bronchial asthma. Patient denies any fever, no chills, no hemoptysis, no chest pain. Patient is maintained on bronchodilators at home in the form of albuterol updrafts 4 times a day and when necessary, and she is on chronically on dexamethasone 2 mg daily. Patient is also on Keppra for seizure disorder and on Cymbalta and Wellbutrin. Looking back at her last admission in November of 2018, patient presented with high degree AV block, and had a temporary pacemaker implantation by cardiology. Patient did require at the time intubation and mechanical ventilation, and she was hypotensive requiring norepinephrine and dopamine. We were actually involved in the care of this patient on the last admission, and her medical problems included aspiration pneumonia, sepsis, complete heart block, hypoxic respiratory failure, lactic acidosis, renal failure, shock liver, patient was in the hospital at the time for almost 3 weeks. She was eventually discharged on 12/17/2018. Patient was transferred back then to [facility] for rehab. 02/09/2019 patient is alert and oriented currently sitting up in chair. Patient does report that she feels like her breathing is improved from yesterday. At this time patient remains on IV Lasix, IV Solu-Medrol and antibiotics. Pulm onary services are following. Patient does report some shortness of breath activity. Patient denies chest pain. Patient denies nausea vomiting or diarrhea. Patient denies any urinary burning or frequency On 02/10/2019 patient is currently alert and oriented resting in bed. At this time patient has increased wheezing throughout. Patient is currently on IV steroids. Discussed with pulmonary [employer]. Patient was switched over to prednisone due to patient stating she has been more successful with this in the past. Chest x-ray ordered per pulmonary. The patient denies chest pain. Patient den ies nausea vomiting or diarrhea. Patient denies any urinary burning or frequency On 02/11/2019 alert and oriented resting comfortably in bed. Patient still having neck and wheezing but improved from yesterday. Patient steroids have been switched to prednisone. Chest x-ray completed yesterday showing overall stable chest. Patient remains on IV Lasix. At that time patient denies chest pain. Patient denies nausea vomiting or diarrhea. Patient denies any urinary burning or frequency Objective - Vital Signs Vital signs: Vital Signs Temp 97.3 F L 02/11/19 04:52 Pulse 91 02/11/19 04:52 Resp 18 02/11/19 04:52 BP 120/73 02/11/19 04:52 Pulse Ox 98 02/11/19 07:50 Intake & Output 02/10/19 02/11/19 02/11/19 18:59 06:59 18:59 Intake Total 1320 Balance 1320 Weight 116.5 kg Intake: Oral 1320 Other: Voiding Method Bedside Commode Bedside Commode Bedside Commode # Voids 3 2 # Bowel Movements 1 - Exam In general patient is alert and oriented 3 in no apparent distress HEENT: Normocephalic and atraumatic with features related to chronic steroid use Neck is supple no JVD no goiter no lymphadenopathy Chest: Scattered rhonchi and wheezing bilaterally Cardiac: Regular heart sounds S1 and S2 no gallops no murmurs Abdomen: Soft nontender no organomegaly with normal bowel sounds Extremities exam reveals 2+ edema bilaterally no cyanosis or clubbing Neuro: No gross focal neurological deficit - Labs CBC & Chem 7: 02/11/19 07:06 02/11/19 07:05 Labs: Abnormal Lab Results - Last 24 Hours (Table) 02/10/19 02/10/19 02/10/19 Range/Units 11:54 16:45 20:41 RBC (3.80-5.40) m/uL Hgb (11.4-16.0) gm/dL Hct (34.0-46.0) % RDW (11.5-15.5) % Neutrophils # (1.3-7.7) k/uL Lymphocytes # (1.0-4.8) k/uL Sodium (137-145) mmol/L Chloride (98-107) mmol/L Carbon Dioxide (22-30) mmol/L BUN (7-17) mg/dL Creatinine (0.52-1.04) mg/dL Glucose (74-99) mg/dL POC Glucose (mg/dL) 206 H 160 H 136 H (75-99) mg/dL ALT (9-52) U/L Total Protein (6.3-8.2) g/dL 02/11/19 02/11/19 02/11/19 Range/Units 07:05 07:06 07:21 RBC 3.35 L (3.80-5.40) m/uL Hgb 10.0 L (11.4-16.0) gm/dL Hct 31.1 L (34.0-46.0) % RDW 15.6 H (11.5-15.5) % Neutrophils # 8.8 H (1.3-7.7) k/uL Lymphocytes # 0.7 L (1.0-4.8) k/uL Sodium 134 L (137-145) mmol/L Chloride 89 L (98-107) mmol/L Carbon Dioxide 39 H (22-30) mmol/L BUN 29 H (7-17) mg/dL Creatinine 1.07 H (0.52-1.04) mg/dL Glucose 101 H (74-99) mg/dL POC Glucose (mg/dL) 113 H (75-99) mg/dL ALT 56 H (9-52) U/L Total Protein 6.2 L (6.3-8.2) g/dL Assessment and Plan Assessment: #1 acute COPD exacerbation #2 acute purulent bronchitis #3 underlying history of chronic cor pulmonale #4 underlying history of obstructive sleep apnea #5 underlying history of depression and anxiety disorder #6 underlying history of seizure disorder maintained on At this time patient was started on IV antibiotic, IV steroids, inhaled bronchodilators, and IV diuretics On 02/10/2019 increased wheezing. Discussed with pulmonary [employer]. Patient transitioned to by mouth prednisone due to patient stating she's been more successful with in the past. Repeat chest x-ray completed showing overall stable chest DVT prophylaxis Lovenox. GI prophylaxis Protonix I performed an examination of the patient and discussed their management with the Nurse Practitioner. I have reviewed the Nurse Practitioner's notes and agree with the documented findings and plan of care
[2019-02-11 11:55] LABS: Glucose,Whole Blood 195 mg/dL (75-99)
[2019-02-11] MEDS: FOLIC ACID 1 MG TAB PO SCH (12:20)
[2019-02-11] MEDS: ONDANSETRON 4 MG/2 ML VIAL IVP PRN ×2 (12:20→21:00)
--- NOTE | 2019-02-11 13:11 | P.PN ---
Subjective Progress Note Date: 02/11/19 Principal diagnosis: Acute exacerbation of chronic obstructive pulmonary disease complicated by purulent tracheobronchitis. Reason seen again today in follow-up on the regular medical floor. She is currently awake and alert in no acute distress. Resting comfortably in bed. Benigno shea is maintaining O2 saturations in the 90s on 2 L/m per nasal cannula. She's afebrile. Hemodynamically stable. She is still having some issues with dyspnea on minimal exertion. White count 10.5. Hemoglobin 10.0. Creatinine 1.07. She is having some issues with nausea. She also feels some of it is related to her breathing treatments and steroids. Objective - Vital Signs Vital signs: Vital Signs Temp 98.0 F 02/11/19 12:36 Pulse 90 02/11/19 12:36 Resp 18 02/11/19 12:36 BP 144/80 02/11/19 12:36 Pulse Ox 93 L 02/11/19 12:36 Intake & Output 02/10/19 02/11/19 02/11/19 18:59 06:59 18:59 Intake Total 1320 Balance 1320 Weight 116.5 kg Intake: Oral 1320 Other: Voiding Method Bedside Commode Bedside Commode Bedside Commode # Voids 3 2 3 # Bowel Movements 1 - Exam GENERAL EXAM: Morbidly obese. Alert, comfortable in no apparent distress. On 2 L nasal cannula HEAD: Normocephalic. EYES: Normal reaction of pupils, equal size. NOSE: Clear with pink turbinates. THROAT: Crowding of the posterior pharynx. No erythema or exudates. NECK: No masses, no JVD. CHEST: No chest wall deformity. LUNGS: Equal air entry with end expiratory wheeze, diminished. CVS: S1 and S2 normal with no audible murmur, regular rhythm. ABDOMEN: No hepatosplenomegaly, normal bowel sounds, no guarding or rigidity. SPINE: No scoliosis or deformity SKIN: No rashes CENTRAL NERVOUS SYSTEM: No focal deficits, tone is normal in all 4 extremities. EXTREMITIES: There is 1+ peripheral edema. No clubbing, no cyanosis. Peripheral pulses are intact. - Labs CBC & Chem 7: 02/11/19 07:06 02/11/19 07:05 Labs: Abnormal Lab Results - Last 24 Hours (Table) 02/10/19 02/10/19 02/11/19 Range/Units 16:45 20:41 07:05 RBC (3.80-5.40) m/uL Hgb (11.4-16.0) gm/dL Hct (34.0-46.0) % RDW (11.5-15.5) % Neutrophils # (1.3-7.7) k/uL Lymphocytes # (1.0-4.8) k/uL Sodium 134 L (137-145) mmol/L Chloride 89 L (98-107) mmol/L Carbon Dioxide 39 H (22-30) mmol/L BUN 29 H (7-17) mg/dL Creatinine 1.07 H (0.52-1.04) mg/dL Glucose 101 H (74-99) mg/dL POC Glucose (mg/dL) 160 H 136 H (75-99) mg/dL ALT 56 H (9-52) U/L Total Protein 6.2 L (6.3-8.2) g/dL 02/11/19 02/11/19 02/11/19 Range/Units 07:06 07:21 11:51 RBC 3.35 L (3.80-5.40) m/uL Hgb 10.0 L (11.4-16.0) gm/dL Hct 31.1 L (34.0-46.0) % RDW 15.6 H (11.5-15.5) % Neutrophils # 8.8 H (1.3-7.7) k/uL Lymphocytes # 0.7 L (1.0-4.8) k/uL Sodium (137-145) mmol/L Chloride (98-107) mmol/L Carbon Dioxide (22-30) mmol/L BUN (7-17) mg/dL Creatinine (0.52-1.04) mg/dL Glucose (74-99) mg/dL POC Glucose (mg/dL) 113 H 195 H (75-99) mg/dL ALT (9-52) U/L Total Protein (6.3-8.2) g/dL Assessment and Plan Assessment: Impression: #1 Acute exacerbation of chronic obstructive pulmonary disease, complicated by purulent tracheobronchitis. No clear evidence of pneumonia. #2 By basilar atelectasis and scarring. #3 Chronic cor pulmonale. #4 History of obstructive sleep apnea. #5 Morbid obesity. #6 History of aspiration pneumonia. #7 History of sepsis. #8 History of third-degree heart block, status post permanent pacemaker implantation. #9 Previous history of acute respiratory failure requiring intubation mechanical ventilator cessation and support. Plan: The patient was seen and evaluated by Dr. Sánchez. We will go ahead and add Zofran for her nausea. We will change her DuoNeb inhalations to as needed versus schedule. We'll decrease her prednisone from 60-40 mg daily. Not quite back to her baseline. Increase her activity as tolerated. We'll continue to follow. I, the cosigning physician, performed a history & physical examination of the patient. Lungs sounds with end expiratory wheeze, diminished. Maintaining good O2 saturations in the 90s on 2 L/m per nasal cannula. I discussed the assessment and plan of care with my nurse practitioner, Sonali Amanda. I attest to the above note as dictated by her.
[2019-02-11 16:51] LABS: Glucose,Whole Blood 172 mg/dL (75-99)
[2019-02-11] MEDS: SYMBICORT 160-4.5 MCG INHALER INHALATION SCH (19:09)
[2019-02-11 19:57] LABS: Glucose,Whole Blood 161 mg/dL (75-99)
[2019-02-11] MEDS: ALPRAZolam 0.25 MG TAB PO PRN (20:59)
[2019-02-11] MEDS: ASPIRIN 81 MG PO SCH (20:59)
[2019-02-12] MEDS: ACETAMINOPHEN TAB 325 MG TAB PO PRN (06:37)
[2019-02-12 07:05] LABS: Glucose,Whole Blood 111 mg/dL (75-99)
[2019-02-12] MEDS: SYMBICORT 160-4.5 MCG INHALER INHALATION SCH (07:21)
[2019-02-12] MEDS: INSULIN ASPART (NovoLOG) 100 UNIT/ML VIAL SQ SCH ×2 (07:30→12:09)
[2019-02-12] MEDS: FUROSEMIDE 10 MG/ML 2 ML VIAL IV SCH (07:53)
[2019-02-12] MEDS: DULoxetine HCL 30 MG CAPSULE.DR PO SCH (07:53)
[2019-02-12] MEDS: buPROPion SR 100 MG TABLET.ER PO SCH (07:53)
[2019-02-12] MEDS: PANTOPRAZOLE 40 MG TABLET PO SCH (07:53)
[2019-02-12] MEDS: ENOXAPARIN 40 MG/0.4 ML SYRINGE SQ SCH (07:53)
[2019-02-12] MEDS: AZITHROMYCIN 500 MG TAB PO SCH (07:53)
[2019-02-12] MEDS: DOCUSATE 100 MG CAP PO SCH (07:53)
[2019-02-12] MEDS: MONTELUKAST 10 MG TAB PO SCH (07:54)
[2019-02-12] MEDS: FOLIC ACID 1 MG TAB PO SCH (07:54)
[2019-02-12] MEDS: levETIRAcetam 500 MG TAB PO SCH (07:54)
[2019-02-12] MEDS ORDERED: predniSONE 20 MG TAB PO SCH (09:00)
[2019-02-12 09:26] LABS: Albumin 3.6 g/dL (3.5-5.0); Calcium 8.7 mg/dL (8.4-10.2); Potassium 3.6 mmol/L (3.5-5.1); Total Bilirubin 0.5 mg/dL (0.2-1.3); Total Protein 6.1 g/dL (6.3-8.2)
[2019-02-12 09:30] LABS: Basophils % (A) 0 %; Eosinophils # (A) 0.1 k/uL (0-0.7); Eosinophils % (A) 1 %; HCT 31.7 % (34.0-46.0); HGB 10.3 gm/dL (11.4-16.0); Hypochromasia Slight; Lymphocytes # (A) 0.9 k/uL (1.0-4.8); Lymphocytes % (A) 9 %; MCH 30.4 pg (25.0-35.0); MCHC 32.3 g/dL (31.0-37.0); Mean Platelet Volume 6.7; Monocytes # (A) 0.9 k/uL (0-1.0); Monocytes % (A) 9 %; Neutrophils # (A) 8.3 k/uL (1.3-7.7); Neutrophils % (A) 81 %; Platelet Count 386 k/uL (150-450); RBC 3.37 m/uL (3.80-5.40); RDW 15.5 % (11.5-15.5); WBC 10.2 k/uL (3.8-10.6)
[2019-02-12 11:57] LABS: Glucose,Whole Blood 180 mg/dL (75-99)
[2019-02-12 12:21] VITALS: BP 125/76; PULSE 95; RESP 20; TEMP 97.6
--- NOTE | 2019-02-12 13:37 | P.PN ---
Subjective Progress Note Date: 02/12/19 Principal diagnosis: Acute exacerbation of chronic obstructive pulmonary disease complicated by purulent tracheobronchitis. The patient is seen again today in follow-up on the regular medical floor. She is currently resting quite comfortably in bed. Laying flat. Awake and alert in no acute distress. Currently maintaining good O2 saturations in the upper 90s on 3 L/m per nasal cannula. She's afebrile. Hemodynamically stable. White count 10.2. Hemoglobin 10.3. Creatinine 1.08. She is currently maintained on DuoNeb inhalations, Symbicort, prednisone. Antibiotics in the form of azithromycin. She remains on IV diuretics. Objective - Vital Signs Vital signs: Vital Signs Temp 97.6 F 02/12/19 12:20 Pulse 95 02/12/19 12:20 Resp 20 02/12/19 12:20 BP 125/76 02/12/19 12:20 Pulse Ox 98 02/12/19 12:20 Intake & Output 02/11/19 02/12/19 02/12/19 18:59 06:59 18:59 Weight 115.5 kg Other: Voiding Method Bedside Commode Bedside Commode Bedside Commode # Voids 2 3 - Exam GENERAL EXAM: Morbidly obese. Alert, comfortable in no apparent distress. On 2 L nasal cannula HEAD: Normocephalic. EYES: Normal reaction of pupils, equal size. NOSE: Clear with pink turbinates. THROAT: Crowding of the posterior pharynx. No erythema or exudates. NECK: No masses, no JVD. CHEST: No chest wall deformity. LUNGS: Equal air entry with end expiratory wheeze, diminished. CVS: S1 and S2 normal with no audible murmur, regular rhythm. ABDOMEN: No hepatosplenomegaly, normal bowel sounds, no guarding or rigidity. SPINE: No scoliosis or deformity SKIN: No rashes CENTRAL NERVOUS SYSTEM: No focal deficits, tone is normal in all 4 extremities. EXTREMITIES: There is 1+ peripheral edema. No clubbing, no cyanosis. Peripheral pulses are intact. - Labs CBC & Chem 7: 02/12/19 08:30 02/12/19 08:30 Labs: Abnormal Lab Results - Last 24 Hours (Table) 02/11/19 02/11/19 02/12/19 Range/Units 16:50 19:56 07:02 RBC (3.80-5.40) m/uL Hgb (11.4-16.0) gm/dL Hct (34.0-46.0) % Neutrophils # (1.3-7.7) k/uL Lymphocytes # (1.0-4.8) k/uL Sodium (137-145) mmol/L Chloride (98-107) mmol/L Carbon Dioxide (22-30) mmol/L BUN (7-17) mg/dL Creatinine (0.52-1.04) mg/dL Glucose (74-99) mg/dL POC Glucose (mg/dL) 172 H 161 H 111 H (75-99) mg/dL ALT (9-52) U/L Total Protein (6.3-8.2) g/dL 02/12/19 02/12/19 02/12/19 Range/Units 08:30 08:30 11:54 RBC 3.37 L (3.80-5.40) m/uL Hgb 10.3 L (11.4-16.0) gm/dL Hct 31.7 L (34.0-46.0) % Neutrophils # 8.3 H (1.3-7.7) k/uL Lymphocytes # 0.9 L (1.0-4.8) k/uL Sodium 133 L (137-145) mmol/L Chloride 86 L (98-107) mmol/L Carbon Dioxide 39 H (22-30) mmol/L BUN 24 H (7-17) mg/dL Creatinine 1.08 H (0.52-1.04) mg/dL Glucose 138 H (74-99) mg/dL POC Glucose (mg/dL) 180 H (75-99) mg/dL ALT 60 H (9-52) U/L Total Protein 6.1 L (6.3-8.2) g/dL Assessment and Plan Assessment: Impression: #1 Acute exacerbation of chronic obstructive pulmonary disease, complicated by purulent tracheobronchitis. No clear evidence of pneumonia. #2 Bibasilar atelectasis and scarring. #3 Chronic cor pulmonale. #4 History of obstructive sleep apnea. #5 Morbid obesity. #6 History of aspiration pneumonia. #7 History of sepsis. #8 History of third-degree heart block, status post permanent pacemaker implantation. #9 Previous history of acute respiratory failure requiring intubation mechanical ventilator cessation and support. Plan: The patient was seen and evaluated by Dr. Sánchez. She is stable for discharge from the pulmonary standpoint. Complete her course of antibiotics. Complete prednisone taper continued. Continue her pulmonary medications. I, the cosigning physician, performed a history & physical examination of the patient. Lungs sounds with end expiratory wheeze, diminished. Maintaining good O2 saturations in the 90s on 3 L/m per nasal cannula. I discussed the assessm ent and plan of care with my nurse practitioner, Sonali Amanda. I attest to the above note as dictated by her.
--- NOTE | 2019-02-12 14:34 | P.DS ---
Providers Date of admission: 02/09/19 07:19 Expected date of discharge: 02/12/19 Attending physician: Kimberley Sharif Consults: 02/08/19 00:42 Consult Physician Routine Consulting Provider: Kj Sánchez Consult Reason/Comments: dyspnea Do you want consulting provider notified?: Yes Primary care physician: [facility] Course: Discharge diagnosis #1 acute COPD exacerbation #2 acute purulent bronchitis #3 underlying history of chronic cor pulmonale #4 underlying history of obstructive sleep apnea #5 underlying history of depression and anxiety disorder #6 underlying history of seizure disorder maintained on [facility] Hospital Course Isabel Irene is a 73-year-old female with history of COPD, chronic bronchial asthma, hypertension, morbid obesity, obstructive sleep apnea syndrome, generalized anxiety disorder, former smoker, presented to the ER with a few days' history of cough wheezing shortness of breath. Patient is not the best historian, but obviously she was evaluated for the symptoms, and she was admitted with the impression of acute exacerbation of COPD/bronchial asthma. Patient denies any fever, no chills, no hemoptysis, no chest pain. Patient is maintained on bronchodilators at home in the form of albuterol updrafts 4 times a day and when necessary, and she is on chronically on dexamethasone 2 mg daily. Patient is also on Keppra for seizure disorder and on Cymbalta and Wellbutrin. Looking back at her last admission in November of 2018, patient presented with high degree AV block, and had a temporary pacemaker implantation by cardiology. Patient did require at the time intubation and mechanical ventilation, and she was hypotensive requiring norepinephrine and dopamine. We were actually involved in the care of this patient on the last admission, and her medical problems included aspiration pneumonia, sepsis, complete heart block, hypoxic respiratory failure, lactic acidosis, renal failure, shock liver, patient was in the hospital at the time for almost 3 weeks. She was eventually discharged on 12/17/2018. Patient was transferred back then to [facility] for rehab. 02/09/2019 patient is alert and oriented currently sitting up in chair. Patient does report that she feels like her breathing is improved from yesterday. At this time patient remains on IV Lasix, IV Solu-Medrol and antibiotics. Pulmonary services are following. Patient does report some shortness of breath activity. Patient denies chest pain. Patient denies nausea vomiting or diarrhea. Patient denies any urinary burning or frequency On 02/10/2019 patient is currently alert and oriented resting in bed. At this time patient has increased wheezing throughout. Patient is currently on IV steroids. Discussed with pulmonary VISUAL EFFECTS EDITOR. Patient was switched over to prednisone due to patient stating she has been more successful with this in the past. Chest x-ray ordered per pulmonary. The patient denies chest pain. Patient denies nausea vomiting or diarrhea. Patient denies any urinary burning or frequency On 02/11/2019 alert and oriented resting comfortably in bed. Patient still having neck and wheezing but improved from yesterday. Patient steroids have been switched to prednisone. Chest x-ray completed yesterday showing overall stable chest. Patient remains on IV Lasix. At that time patient denies chest pain. Patient denies nausea vomiting or diarrhea. Patient denies any urinary burning or frequency 02/12/2019 patient is alert and oriented resting in bed. Patient has been cleared for discharge from pulmonary standpoint. Patient will be DC'd on prednisone taper and Zithromax for antibiotic. Patient will be discharged to rehab per patient request. Patient is on 3 L nasal cannula. Patient denies chest pain or shortness breath. Patient denies nausea vomiting or diarrhea. Patient denies any urinary burning or frequency I performed an examination of the patient and discussed their management with the Nurse Practitioner. I have reviewed the Nurse Practitioner's notes and agree with the documented findings and plan of care Patient Condition at Discharge: Stable Plan - Discharge Summary New Discharge Prescriptions: New INSULIN ASPART (NovoLOG) [NovoLOG (formulary)] 0 unit SQ ACHS vial Azithromycin [Zithromax] 500 mg PO DAILY 7 Days #7 tab Continue Montelukast [Singulair] 10 mg PO DAILY Aspirin EC [Ecotrin Low Dose] 81 mg PO HS Albuterol Nebulized [Ventolin Nebulized] 2.5 mg INHALATION RT-DAILY levETIRAcetam [Keppra] 500 mg PO BID Ergocalciferol [Vitamin D2 (DRISDOL)] 50,000 unit PO MO Folic Acid 1 mg PO DAILY Esomeprazole Magnesium [NexIUM] 40 mg PO BID DULoxetine HCL [Cymbalta] 30 mg PO DAILY buPROPion HCL [Wellbutrin SR] 100 mg PO BID Docusate [Colace] 100 mg PO DAILY Acetaminophen [Tylenol Arthritis] 650 mg PO DAILY PRN PRN Reason: Pain Teriparatide [Forteo] 20 mcg SQ HS Fluticasone/Vilanterol [Breo Ellipta 100-25 Mcg Inhaler] 1 puff INHALATION RT-DAILY Albuterol Sulfate [Proair Hfa] 1 - 2 puff INHALATION RT-Q6H PRN PRN Reason: Shortness Of Breath Furosemide [Lasix] 60 mg PO DAILY Dexamethasone [Hexadrol] 2 mg PO DAILY #0 ALPRAZolam [Xanax] 0.25 mg PO BID PRN #6 tab PRN Reason: Anxiety Discontinued Lisinopril [Zestril] 5 mg PO DAILY Discharge Medication List Albuterol Nebulized [Ventolin Nebulized] 2.5 mg INHALATION RT-DAILY 03/22/17 [History] Aspirin EC [Ecotrin Low Dose] 81 mg PO HS 03/22/17 [History] Ergocalciferol [Vitamin D2 (DRISDOL)] 50,000 unit PO MO 03/22/17 [History] Montelukast [Singulair] 10 mg PO DAILY 03/22/17 [History] levETIRAcetam [Keppra] 500 mg PO BID 03/22/17 [History] Esomeprazole Magnesium [NexIUM] 40 mg PO BID 03/24/18 [History] Folic Acid 1 mg PO DAILY 03/24/18 [History] DULoxetine HCL [Cymbalta] 30 mg PO DAILY 11/25/18 [History] buPROPion HCL [Wellbutrin SR] 100 mg PO BID 11/25/18 [History] Acetaminophen [Tylenol Arthritis] 650 mg PO DAILY PRN 02/08/19 [History] Albuterol Sulfate [Proair Hfa] 1 - 2 puff INHALATION RT-Q6H PRN 02/08/19 [History] Docusate [Colace] 100 mg PO DAILY 02/08/19 [History] Fluticasone/Vilanterol [Breo Ellipta 100-25 Mcg Inhaler] 1 puff INHALATION RT- DAILY 02/08/19 [History] Furosemide [Lasix] 60 mg PO DAILY 02/08/19 [History] Teriparatide [Forteo] 20 mcg SQ HS 02/08/19 [History] ALPRAZolam [Xanax] 0.25 mg PO BID PRN #6 tab 02/12/19 [Rx] Azithromycin [Zithromax] 500 mg PO DAILY 7 Days #7 tab 02/12/19 [Rx] Dexamethasone [Hexadrol] 2 mg PO DAILY #0 02/12/19 [Rx] INSULIN ASPART (NovoLOG) [NovoLOG (formulary)] 0 unit SQ ACHS vial 02/12/19 [Rx] Follow up Appointment(s)/Referral(s): Marcia Loomis DO [Primary Care Provider] - 1-2 days
== END 2019-02-12 15:35 | DRG 191 ==
LOC: EC 22:22 → 3NMEDONC 02-08 00:41 → OBSVTOIN 02-09 07:19
PROVIDERS: ADMIT Internal Medicine; ATTEND Internal Medicine
DX: J44.1 Chronic obstructive pulmonary disease with (acute) exacerbation (principal); J45.41 Moderate persistent asthma with (acute) exacerbation; J98.11 Atelectasis; G91.9 Hydrocephalus, unspecified; J44.0 Chronic obstructive pulmonary disease with (acute) lower respiratory infection; I27.81 Cor pulmonale (chronic); I11.0 Hypertensive heart disease with heart failure; I50.9 Heart failure, unspecified; E66.01 Morbid (severe) obesity due to excess calories; I44.7 Left bundle-branch block, unspecified; G40.909 Epilepsy, unspecified, not intractable, without status epilepticus; F32.9 Major depressive disorder, single episode, unspecified; F41.1 Generalized anxiety disorder; G47.33 Obstructive sleep apnea (adult) (pediatric); J20.9 Acute bronchitis, unspecified; M81.0 Age-related osteoporosis without current pathological fracture; M19.90 Unspecified osteoarthritis, unspecified site; Z79.4 Long term (current) use of insulin; Z79.899 Other long term (current) drug therapy; Z79.82 Long term (current) use of aspirin; Z88.0 Allergy status to penicillin; Z90.49 Acquired absence of other specified parts of digestive tract; Z87.891 Personal history of nicotine dependence; Z95.0 Presence of cardiac pacemaker; Z87.01 Personal history of pneumonia (recurrent); Z86.011 Personal history of benign neoplasm of the brain; Z82.5 Family history of asthma and other chronic lower respiratory diseases; Z81.8 Family history of other mental and behavioral disorders
CPT/HCPCS: 36415; 71045; 71046; 80053; 83036; 83880; 84484; 85025; 85610; 85730; 87502; 93005; 94640; 94760; 96374; 99285

== ENCOUNTER 2019-03-17 18:42 | Inpatient (IN) | payer MEDICARE, OTHER ==
[2019-03-17 19:09] LABS: Glucose,Whole Blood 265 mg/dL (75-99)
--- NOTE | 2019-03-17 19:10 | ED ---
General Adult HPI - General Chief complaint: Arrhythmia/Palpitations Stated complaint: Seizure, vomiting Time Seen by Provider: 03/17/19 18:47 Source: patient, family, RN notes reviewed, old records reviewed Mode of arrival: wheelchair Limitations: no limitations - History of Present Illness Initial comments: This is a 74-year-old female with a history of multiple medical problems including a benign brain tumor, seizure disorder hypertension, diabetes, renal disease COPD who has been complaining of left groin and leg pain for last week or so she was brought in by her daughter today and was noted have a seizure episode lasting approximately 3 minutes. Her last seizure prior to this was 2 weeks ago the patient is on Keppra for this. After arrival here she was noted to be bradycardic. She feels generally weak no overt chest pain or shortness of breath no other symptoms at this time. - Related Data Home Medications Medication Instructions Recorded Confirmed Albuterol Nebulized [Ventolin 2.5 mg INHALATION RT-DAILY 03/22/17 03/17/19 Nebulized] Aspirin EC [Ecotrin Low Dose] 81 mg PO DAILY 03/22/17 03/17/19 Ergocalciferol [Vitamin D2 50,000 unit PO MO 03/22/17 03/17/19 (DRISDOL)] Montelukast [Singulair] 10 mg PO DAILY 03/22/17 03/17/19 levETIRAcetam [Keppra] 500 mg PO BID 03/22/17 03/17/19 Esomeprazole Magnesium [NexIUM] 40 mg PO BID 03/24/18 03/17/19 Folic Acid 1 mg PO DAILY 03/24/18 03/17/19 DULoxetine HCL [Cymbalta] 30 mg PO DAILY 11/25/18 03/17/19 buPROPion HCL [Wellbutrin SR] 100 mg PO BID 11/25/18 03/17/19 Acetaminophen [Tylenol Arthritis] 650 mg PO DAILY PRN 02/08/19 03/17/19 Albuterol Sulfate [Proair Hfa] 1 - 2 puff INHALATION RT-Q6H PRN 02/08/19 03/17/19 Docusate [Colace] 100 mg PO DAILY 02/08/19 03/17/19 Fluticasone/Vilanterol [Breo 1 puff INHALATION RT-DAILY 02/08/19 03/17/19 Ellipta 100-25 Mcg Inhaler] Furosemide [Lasix] 60 mg PO DAILY 02/08/19 03/17/19 Repaglinide [Prandin] 1 mg PO TID 03/17/19 03/17/19 Teriparatide [Forteo] 20 mcg SQ DAILY 03/17/19 03/17/19 Previous Rx's Medication Instructions Recorded ALPRAZolam [Xanax] 0.25 mg PO BID PRN #6 tab 02/12/19 Dexamethasone [Hexadrol] 2 mg PO DAILY #0 02/12/19 Allergies Allergy/AdvReac Type Severity Reaction Status Date / Time Penicillins Allergy Rash/Hives Verified 03/17/19 19:56 Review of Systems ROS Statement: Those systems with pertinent positive or pertinent negative responses have been documented in the HPI. ROS Other: All systems not noted in ROS Statement are negative. Past Medical History Past Medical History: Asthma, Heart Failure, COPD, Diabetes Mellitus, Hypertension, Osteoarthritis (OA), Sleep Apnea/CPAP/BIPAP Additional Past Medical History / Comment(s): osteoporosis, 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 History of Any Multi-Drug Resistant Organisms: None Reported Past Surgical History: Cholecystectomy, Tonsillectomy Past Anesthesia/Blood Transfusion Reactions: No Reported Reaction Past Psychological History: Anxiety, Depression Smoking Status: Former smoker Past Alcohol Use History: None Reported Past Drug Use History: None Reported - Past Family History Mother Family Medical History: Asthma Additional Family Medical History / Comment(s): depression Father Additional Family Medical History / Comment(s): ETOH General Exam - General Exam Comments Initial Comments: Is a well-developed morbidly obese female who is awake alert oriented 3 Limitations: no limitations General appearance: alert, anxious, in distress Head exam: Present: atraumatic, normocephalic, normal inspection Eye exam: Present: normal appearance, PERRL, EOMI. Absent: scleral icterus, con junctival injection, periorbital swelling ENT exam: Present: mucous membranes dry Neck exam: Present: normal inspection. Absent: tenderness, meningismus, lymphadenopathy Respiratory exam: Present: normal lung sounds bilaterally. Absent: respiratory distress, wheezes, rales, rhonchi, stridor Cardiovascular Exam: Present: bradycardia GI/Abdominal exam: Present: soft, other Extremities exam: Present: pedal edema Back exam: Present: normal inspection Neurological exam: Present: alert, oriented X3, CN II-XII intact Psychiatric exam: Present: normal affect, normal mood Skin exam: Present: warm, dry, intact, normal color. Absent: rash Course Vital Signs 03/17/19 03/17/19 03/17/19 18:58 19:04 19:10 Temperature 98.5 F Pulse Rate 29 L 27 L Pulse Rate [ 25 L Pricing Associate ] Respiratory 16 20 Rate Blood Pressure 107/71 121/79 O2 Sat by Pulse 98 99 Oximetry 03/17/19 03/17/19 03/17/19 19:30 19:41 19:48 Temperature Pulse Rate 22 L 32 L 27 L Pulse Rate [ Pricing Associate ] Respiratory 20 20 20 Rate Blood Pressure 76/63 111/87 85/59 O2 Sat by Pulse 100 100 100 Oximetry 03/17/19 03/17/19 03/17/19 19:53 20:02 20:13 Temperature Pulse Rate 31 L 31 L 34 L Pulse Rate [ Pricing Associate ] Respiratory 20 20 18 Rate Blood Pressure 122/90 66/30 92/64 O2 Sat by Pulse 100 100 98 Oximetry 03/17/19 03/17/19 03/17/19 20:21 20:30 20:37 Temperature 97.9 F Pulse Rate 33 L 33 L 33 L Pulse Rate [ Pricing Associate ] Respiratory 22 18 24 Rate Blood Pressure 81/38 81/37 91/47 O2 Sat by Pulse 95 94 L 93 L Oximetry 03/17/19 20:48 Temperature Pulse Rate 30 L Pulse Rate [ Pricing Associate ] Respiratory 24 Rate Blood Pressure 109/79 O2 Sat by Pulse 94 L Oximetry - Reevaluation(s) Reevaluation #1: 03/17/19 19:54 I did reevaluate patient several occasions for most part her blood pressure remained in the low 100s systolic she did had 2 episodes where the pressure did drop into the 70s systolic. The potassium and magnesium level are the low end of normal range. Supplementation is been ordered. I did discuss the case with Dr. Ellis from cardiology due to the other findings the patient will be started on dopamine 5 g. A septic workup will be started. Patient's been afebrile however the white count is elevated this could be reactive. Reevaluation #2: 03/17/19 20:24 Patient continues to have episodes of bradycardia as well as hypotension. Patient was on IV fluids as well as IV dopamine with minimal evidence of improvement she remains in appears be a third-degree AV block. Supplementation of potassium and magnesium continue. I did discuss case with Dr. Ellis patient will be going to the [facility] for temporary pacer placement. I did also discuss case with Dr. Sharif Reevaluation #3: 03/17/19 20:28 EKGs were performed #2 showed a third-degree AV block rate of 41 QRS 94 QT since QTC 524/432 left exodeviation nonspecific inferior and anterior configuration artifact is present Reevaluation #4: 03/17/19 20:29 EKG #3 showed a third-degree block rate was 28 QRS 92 QT since QTC 544/376 and the configuration is previously left exodeviation incomplete right bundle-branch block nonspecific anterior and inferior changes EKG number for heart rate of 31 with marked bradycardia third-degree block QRS 108 QT since QTC 572/410 left exodeviation incomplete right bundle-branch block inferior and anterior changes noted EKG #5 third-degree block rate was 32 QRS 120 since QTC 584/426 with anterior fascicular block nonspecific ST-T wave configuration. Reevaluation #5: 03/17/19 20:32 monitoring manager: Indication due to bradycardia to rule out dysrhythmia third- degree AV block is noted. The rate was 30. - Consultations Consultation #1: Did discuss the case with Dr. Ellis who did initially recommend IV dopamine. Supplementation will continue. Patient will be going to [facility] for temporary pacer. Catheter team has been called in. Consultation #2: I did discuss the case with Dr. Crowell. Patient will be admitted to intensive care unit after the [facility]. EKG Findings - EKG Results: EKG: interpreted by ERMD (EKG showed a heart rate of 29 which appeared to be third degree AV block left exodeviation incomplete right bundle-branch block nonspecific inferior changes. QRS of 94 QT since QTC 528/366 was compared with an EKG dated 02/07/19 showed her rate of 95 QRS 1:30 QT since QTC 390/492 with a left bundle-branch block pattern) Medical Decision Making - Medical Decision Making I did discuss the case with multiple physicians patient will be admitted to intensive care unit after temporary pacer is placed in the cardiac cath department. Patient has maintained her heart rate in the proximal knee 30 bpm range plus or minus a third-degree block she also has remained awake and alert patient does have evidence on x-ray of only basilar congestion and lactic acid 3.8 she did have an elevated white blood cell count but no fever no definitive source of infectious etiology at this time. At this time the BNP is pending as are blood cultures. Due to the patient's x-ray findings of the lungs remain clear IV fluids are carefully given. He lactic acid is likely secondary as well as the elevated WBCs through the seizure activity prior to arrival. IV Was also ordered. - Lab Data Result diagrams: 03/17/19 19:00 03/17/19 19:00 Lab Results 03/17/19 03/17/19 03/17/19 Range/Units 19:00 19:00 19:00 WBC 19.4 H (3.8-10.6) k/uL RBC 3.43 L (3.80-5.40) m/uL Hgb 10.1 L (11.4-16.0) gm/dL Hct 31.5 L (34.0-46.0) % MCV 91.8 (80.0-100.0) fL MCH 29.6 (25.0-35.0) pg MCHC 32.2 (31.0-37.0) g/dL RDW 14.5 (11.5-15.5) % Plt Count 468 H (150-450) k/uL Neutrophils % 80 % Lymphocytes % 12 % Monocytes % 6 % Eosinophils % 1 % Basophils % 0 % Neutrophils # 15.6 H (1.3-7.7) k/uL Lymphocytes # 2.3 (1.0-4.8) k/uL Monocytes # 1.1 H (0-1.0) k/uL Eosinophils # 0.1 (0-0.7) k/uL Basophils # 0.1 (0-0.2) k/uL Sodium 131 L (137-145) mmol/L Potassium 3.8 (3.5-5.1) mmol/L Chloride 89 L (98-107) mmol/L Carbon Dioxide 29 (22-30) mmol/L Anion Gap 13 mmol/L BUN 21 H (7-17) mg/dL Creatinine 1.21 H (0.52-1.04) mg/dL Est GFR (CKD-EPI)AfAm 52 (>60 ml/min/1.73 sqM) Est GFR (CKD-EPI)NonAf 45 (>60 ml/min/1.73 sqM) Glucose 244 H (74-99) mg/dL POC Glucose (mg/dL) (75-99) mg/dL POC Glu Residency Director ID Plasma Lactic Acid Margarito (0.7-2.0) mmol/L Calcium 9.1 (8.4-10.2) mg/dL Magnesium 1.8 (1.6-2.3) mg/dL Total Bilirubin 0.8 (0.2-1.3) mg/dL AST 31 (14-36) U/L ALT 33 (9-52) U/L Alkaline Phosphatase 89 (38-126) U/L Total Creatine Kinase 42 (30-135) U/L CK-MB (CK-2) 1.1 (0.0-2.4) ng/mL CK-MB (CK-2) Rel Index 2.6 Troponin I 0.026 (0.000-0.034) ng/mL Total Protein 6.4 (6.3-8.2) g/dL Albumin 3.7 (3.5-5.0) g/dL Urine Color Urine Appearance (Clear) Urine pH (5.0-8.0) Ur Specific [place] (1.001-1.035) Urine Protein (Negative) Urine Glucose (UA) (Negative) Urine Ketones (Negative) Urine Blood (Negative) Urine Nitrite (Negative) Urine Bilirubin (Negative) Urine Urobilinogen (<2.0) mg/dL Ur Leukocyte Esterase (Negative) Urine RBC (0-5) /hpf Urine WBC (0-5) /hpf Urine Bacteria (None) /hpf Urine Mucus (None) /hpf 03/17/19 03/17/19 03/17/19 Range/Units 19:08 19:12 20:16 WBC (3.8-10.6) k/uL RBC (3.80-5.40) m/uL Hgb (11.4-16.0) gm/dL Hct (34.0-46.0) % MCV (80.0-100.0) fL MCH (25.0-35.0) pg MCHC (31.0-37.0) g/dL RDW (11.5-15.5) % Plt Count (150-450) k/uL Neutrophils % % Lymphocytes % % Monocytes % % Eosinophils % % Basophils % % Neutrophils # (1.3-7.7) k/uL Lymphocytes # (1.0-4.8) k/uL Monocytes # (0-1.0) k/uL Eosinophils # (0-0.7) k/uL Basophils # (0-0.2) k/uL Sodium (137-145) mmol/L Potassium (3.5-5.1) mmol/L Chloride (98-107) mmol/L Carbon Dioxide (22-30) mmol/L Anion Gap mmol/L BUN (7-17) mg/dL Creatinine (0.52-1.04) mg/dL Est GFR (CKD-EPI)AfAm (>60 ml/min/1.73 sqM) Est GFR (CKD-EPI)NonAf (>60 ml/min/1.73 sqM) Glucose (74-99) mg/dL POC Glucose (mg/dL) 265 H (75-99) mg/dL POC Glu Residency Director ID Esther Trujillo Plasma Lactic Acid Margarito 3.8 H* (0.7-2.0) mmol/L Calcium (8.4-10.2) mg/dL Magnesium (1.6-2.3) mg/dL Total Bilirubin (0.2-1.3) mg/dL AST (14-36) U/L ALT (9-52) U/L Alkaline Phosphatase (38-126) U/L Total Creatine Kinase (30-135) U/L CK-MB (CK-2) (0.0-2.4) ng/mL CK-MB (CK-2) Rel Index Troponin I (0.000-0.034) ng/mL Total Protein (6.3-8.2) g/dL Albumin (3.5-5.0) g/dL Urine Color Light Yellow Urine Appearance Clear (Clear) Urine pH 5.5 (5.0-8.0) Ur Specific [place] 1.009 (1.001-1.035) Urine Protein Negative (Negative) Urine Glucose (UA) Negative (Negative) Urine Ketones Negative (Negative) Urine Blood Negative (Negative) Urine Nitrite Negative (Negative) Urine Bilirubin Negative (Negative) Urine Urobilinogen <2.0 (<2.0) mg/dL Ur Leukocyte Esterase Moderate H (Negative) Urine RBC <1 (0-5) /hpf Urine WBC 10 H (0-5) /hpf Urine Bacteria Many H (None) /hpf Urine Mucus Rare H (None) /hpf - EKG Data EKG shows normal: QRS complexes Critical Care Time Critical Care Time: Yes Critical Care Time: 75 minutes of critical care time which includes initial presentation with history physical labs x-rays multiple reevaluation the patient to responsive therapy multiple discussions with the patient and her daughter regarding the findings. Discussion with multiple physicians. Review of old charting was available. Admission orders and documentation of the above. Disposition Clinical Impression: Third degree AV block, Hypotensive episode, Seizure, Renal insufficiency Disposition: ADMITTED IP TO THIS HOSP Condition: Critical Referrals: Marcia Loomis DO [Primary Care Provider] - 1-2 days
[2019-03-17] MEDS ORDERED: POTASSIUM CHLORIDE 20 MEQ in WATER FOR INJECTION 1 100ML.BAG IVPB STA (19:18)
[2019-03-17] MEDS ORDERED: POTASSIUM CHLORIDE ER 20 MEQ TAB.ER PO STA (19:19)
[2019-03-17 19:25] LABS: Albumin 3.7 g/dL (3.5-5.0); Calcium 9.1 mg/dL (8.4-10.2); Magnesium 1.8 mg/dL (1.6-2.3); Potassium 3.8 mmol/L (3.5-5.1); Total Bilirubin 0.8 mg/dL (0.2-1.3); Total Protein 6.4 g/dL (6.3-8.2)
[2019-03-17 19:26] LABS: Basophils # (A) 0.1 k/uL (0-0.2); Basophils % (A) 0 %; Eosinophils # (A) 0.1 k/uL (0-0.7); Eosinophils % (A) 1 %; HCT 31.5 % (34.0-46.0); HGB 10.1 gm/dL (11.4-16.0); Lymphocytes # (A) 2.3 k/uL (1.0-4.8); Lymphocytes % (A) 12 %; MCH 29.6 pg (25.0-35.0); MCHC 32.2 g/dL (31.0-37.0); MCV 91.8 fL (80.0-100.0); Mean Platelet Volume 7.4; Monocytes # (A) 1.1 k/uL (0-1.0); Monocytes % (A) 6 %; Neutrophils # (A) 15.6 k/uL (1.3-7.7); Neutrophils % (A) 80 %; Platelet Count 468 k/uL (150-450); RBC 3.43 m/uL (3.80-5.40); RDW 14.5 % (11.5-15.5); WBC 19.4 k/uL (3.8-10.6)
[2019-03-17] MEDS ORDERED: MAGNESIUM SULFATE-D5W PMX 1 GM in DEXTROSE/WATER 1 100ML.BAG IVPB ONE (19:29)
[2019-03-17] MEDS ORDERED: SODIUM CHLORIDE 0.9% 500 ML 500 ML IV STA (19:30)
[2019-03-17 19:36] LABS: Appearance,Urine Clear (Clear); Bacteria,Urine Many /hpf; Bilirubin,Urine Negative (Negative); Blood,Urine Negative (Negative); Color,Urine Light Yellow; Glucose,Urine (UA) Negative (Negative); Ketones,Urine Negative (Negative); Leukocyte Esterase,Urine Moderate (Negative); Mucus,Urine Rare /hpf; Nitrite,Urine Negative (Negative); PH, Urine 5.5 (5.0-8.0); Protein,Urine Negative (Negative); RBC,Urine <1 /hpf (0-5); Specific Gravity,Urine 1.009 (1.001-1.035); Urobilinogen,Urine <2.0 mg/dL (<2.0)
[2019-03-17 19:36] LABS: Creatine Kinase MB 1.1 ng/mL (0.0-2.4); Troponin I 0.026 ng/mL (0.000-0.034)
--- NOTE | 2019-03-17 19:42 | XR ---
EXAMINATION: XR chest 1V portable DATE AND TIME: 03/17/2019 7:34 PM CLINICAL INDICATION: PHH; pain TECHNIQUE: AP upright portable COMPARISON: 02/10/2019 FINDINGS: The hemidiaphragms are markedly elevated, consistent with low lung inflation at the moment of x-ray e xposure. Bilateral atelectasis in the lower lobes suspected Small left pleural effusion redemonstrated. The overlying soft tissues are prominent. The lungs show evidence of a fine reticular pattern, which can correlate with a clinical diagnosis of mild interstitial phase pulmonary edema. The cardiac silhouette is moderately enlarged. The skeletal structures and soft tissues are negative for acute findings. IMPRESSION: Suspect mild pulmonary edema.
[2019-03-17] MEDS: SODIUM CHLORIDE 0.9% 1,000 ML IV STA (19:48)
[2019-03-17] MEDS ORDERED: DOPamine DRIP 800 MG in DEXTROSE/WATER 1 250ML.BAG IV ONE (19:52)
[2019-03-17] MEDS ORDERED: SODIUM CHLORIDE 0.9% 500 ML 500 ML IV ONE (20:03)
[2019-03-17] MEDS ORDERED: LIDOCAINE 1% INJ 10MG/ML (20 ML MDV) ONE (20:51)
[2019-03-17] MEDS ORDERED: levETIRAcetam IV 500 MG in SODIUM CHLORIDE 0.9% 100 ML IVPB STA (20:55)
[2019-03-17] MEDS ORDERED: NALOXONE 0.4 MG/ML 1 ML VIAL IV PRN (20:56)
[2019-03-17] MEDS ORDERED: LIDOCAINE 1% INJ 10MG/ML (20 ML MDV) SQ ONE (21:17)
[2019-03-17] MEDS ORDERED: MIDAZOLAM 2 MG/2 ML VIAL IVP ONE (21:22)
[2019-03-17] MEDS ORDERED: HYDROmorphone 2 MG/ML 1 ML SYRINGE IVP ONE (21:35)
[2019-03-17] MEDS ORDERED: SODIUM CHLORIDE 0.9% 250 ML IV ONE (21:48)
[2019-03-17] MEDS ORDERED: IV FLUID CONTINUATION 1,000 ML IV ONE (21:48)
[2019-03-17] MEDS ORDERED: ENOXAPARIN 100 MG/ML SYRINGE SQ STA (22:00)
--- NOTE | 2019-03-17 22:06 | CONS ---
CONSULTATION DATE OF SERVICE: Isabel Drake is a 73-year-old lady who was seen by Cardiology in November when she presented with multiple comorbid conditions, including severe bradycardia, symptomatic, with a complete heart block and underwent a temporary pacemaker, but subsequently the heart rate improved and she was discharged without a pacemaker with a heart rate in the 70s. She also has an underlying seizure disorder. She was brought into the hospital by the family, mainly with complaints of having had a seizure. Apparently this lady has multiple medical problems, including some meningioma, seizure disorder, hypertension, diabetes, renal disease and episodes of sepsis. Apparently she has been very lethargic, weak and had at least one documented seizure that we know of that was seen by her daughter and grandson. After arrival she was found to be bradycardic and her heart rate was in the low 30s and the rhythm seemed to be a complete heart block with several P-waves and QRS beats. There was an IV conduction delay type picture. I initially advised the emergency room doctor after checking the electrolytes to give some dopamine to see if the heart rate would improve, but there was no improvement. Therefore I came in and saw her in the emergency room and talked to the patient and more so with her daughter. The patient is not communicative. She keeps on moaning, tells me that she has back pain, but she does not give any meaningful communication. However, the daughter indicated to me that she is very limited in her activity, and to move from her bedroom to the bathroom is a chore and she has to be helped for every little activity. Her functional capacity is quite poor, and for the last few days she was even more lethargic, weak, tired, and had an episode of seizure today which made her bring her to the emergency room. PAST MEDICAL HISTORY: 1. Recent hospitalization in November with an episode of bradycardia requiring temporary pacemaker, but subsequently her symptoms improved. 2. Patient also has sleep apnea, wears a BiPAP. 3. She has underlying bronchial asthma. 4. Type 2 diabetes. 5. Hypertension. 6. Hyperlipidemia. 7. Osteoarthritis. 8. She had coronary angiography also in November which revealed no significant obstructive disease. 9. The patient is status post cholecystectomy. 10.Status post tonsillectomy. ALLERGIES: She is ALLERGIC TO PENICILLIN. MEDICATIONS: Medications at home included: 1. Dexamethasone. 2. Prandin. 3. Ellipta. 4. Keppra. 5. Cymbalta. 6. Wellbutrin. 7. Aspirin 81 mg daily. 8. Ventolin inhaler. 9. Nexium. 10.Singulair. She does not take any rate-lowering agents and did not have any recent thyroid function testing. PHYSICAL EXAMINATION: Blood pressure was 96/60. Pulse rate was about 32 with wide QRS and complete heart block. Physical exam revealed JVD of at least 2 cm. There is no carotid bruit. Heart exam reveals S1, S2 with a short systolic murmur at the base. Second heart sound is preserved. Lungs reveal diminished air entry in bilateral lung nolan. Abdomen is distended. Lower extremities reveal edema with very diminished pulses. Central nervous system assessment was not performed. It appears that patient can move all 4 extremities. IMPRESSION: 1. Complete heart block. 2. Rule out underlying sepsis. 3. History of known sick sinus syndrome with a previous temporary pacemaker in November 2018. 4. History of type 2 diabetes mellitus. 5. History of obstructive sleep apnea, on CPAP. RECOMMENDATIONS: I am recommending that we proceed to the laboratory engineer for a temporary pacemaker and a femoral arterial line. I discussed my thoughts in detail with the patient and more so with her daughter, who understood the rationale, risks, benefits and options and wished me to proceed with the procedure. MMASHLEIGHL / IJN: [id number] /
--- NOTE | 2019-03-17 22:18 | PCN ---
PROCEDURE NOTE DATE OF SERVICE: 03/16/2019. PROCEDURE: 1. Transvenous temporary pacemaker from right femoral venous approach. 2. Femoral arterial line using a 4-Syrian sheath in the right femoral artery. PERFORMED BY: Dr. Portia Ellis. Moderate conscious sedation time was 21 minutes. The patient's oxygen saturation, hemodynamics and EKG were monitored closely. CLINICAL INFORMATION: Isabel Drake is a 73-year-old lady with history of diabetes, hypertension, hyperlipidemia, obstructive sleep apnea syndrome and possible underlying sepsis who came into the hospital with weakness, lethargy, had a seizure and had a heart rate in the low 30s. She was advised prompt temporary pacemaker because of complete heart block, and after due discussion with the patient's daughter, she was brought to the prosthetics lab technician. PROCEDURE NOTE: Under local anesthesia and strict aseptic precautions, a 6-Syrian introducer was placed in the right femoral vein and a 4-Syrian introducer in the right femoral artery. Under fluoroscopy, using a 5-Syrian balloon-tipped pacemaker, I was able to advance and position it in the right ventricular apex. Thresholds were excellent. Patient has been paced at a rate of 50 with an mA of 5. Blood pressure was in the 120s. Her dopamine was discontinued. Arterial line was connected to pressure and femoral venous sheath and femoral arterial sheaths were both sutured. Pacemaker was positioned, secured very nicely. The patient was sedated with some Versed. The findings and the details of the procedure were discussed with the patient and her daughter. She will be sent to the ICU. Patient is hemodynamically stable with a pressure of about 120 systolic and a saturation of 98% on non-rebreather at a rate of 50 beats per minute, paced beats. Thyroid function tests have been requested and also another set of blood cultures was ordered. MMODL / IJN: [id number] /
[2019-03-17 22:19] LABS: Glucose,Whole Blood 241 mg/dL (75-99)
[2019-03-17 22:20] LABS: ABG Base Excess 6.3 mmol/L; ABG HCO3 34 mmol/L (21-25); ABG Oxygen Saturation 81.9 % (94-97); ABG PH 7.25 (7.35-7.45); ABG TCO2 36 mmol/L (19-24)
[2019-03-17] MEDS ORDERED: SODIUM CHLORIDE 0.9% 1,000 ML IV ONE (23:07)
[2019-03-17 23:37] LABS: ABG Base Excess 5.2 mmol/L; ABG HCO3 30 mmol/L (21-25); ABG PCO2 45 mmHg (35-45); ABG PH 7.43 (7.35-7.45); ABG PO2 377 mmHg (83-108); ABG TCO2 31 mmol/L (19-24)
[2019-03-17 23:39] LABS: ABG PCO2 77 mmHg (35-45); ABG PO2 56 mmHg (83-108)
--- NOTE | 2019-03-17 23:54 | XR ---
EXAM: XR Chest, 1 View CLINICAL HISTORY: ITS.REASON XR Reason: Tube placement TECHNIQUE: Frontal view of the chest. COMPARISON: Comparison with 03/17/19 exam performed at 1922 hrs. FINDINGS: See Impression. IMPRESSION: ET tube Located 8 mm above the omayra. Improved aeration of both lung bases. New transesophageal catheter with tip off the examination. No other changes.
[2019-03-18] MEDS ORDERED: SODIUM CHLORIDE 0.9% 1,000 ML IV ONE (00:12)
[2019-03-18] MEDS: NOREPINEPHRINE 4 MG in SODIUM CHLORIDE 0.9% 250 ML IV SCH ×2 (00:24→08:44)
[2019-03-18] MEDS: SODIUM CHLORIDE 0.9% 1,000 ML IV STA (00:29)
[2019-03-18 00:47] LABS: Magnesium 2.2 mg/dL (1.6-2.3); Potassium 3.9 mmol/L (3.5-5.1)
[2019-03-18] MEDS: PANTOPRAZOLE 40 MG/10 ML VIAL IVP SCH ×2 (01:49→08:23)
[2019-03-18] MEDS ORDERED: FUROSEMIDE 10 MG/ML 4 ML VIAL IV STA (01:57)
[2019-03-18 04:41] LABS: Glucose,Whole Blood 172 mg/dL (75-99)
[2019-03-18 04:45] LABS: Basophils % (A) 0 %; Eosinophils # (A) 0.1 k/uL (0-0.7); Eosinophils % (A) 1 %; HCT 28.4 % (34.0-46.0); HGB 9.1 gm/dL (11.4-16.0); Lymphocytes # (A) 0.9 k/uL (1.0-4.8); Lymphocytes % (A) 7 %; MCHC 32.1 g/dL (31.0-37.0); MCV 90.3 fL (80.0-100.0); Mean Platelet Volume 6.9; Monocytes # (A) 0.8 k/uL (0-1.0); Monocytes % (A) 5 %; Neutrophils # (A) 11.9 k/uL (1.3-7.7); Neutrophils % (A) 86 %; Platelet Count 447 k/uL (150-450); RBC 3.15 m/uL (3.80-5.40); RDW 14.6 % (11.5-15.5); WBC 13.8 k/uL (3.8-10.6)
[2019-03-18] MEDS: PROPOFOL 1,000 MG in EMPTY BAG 1 BAG IV SCH ×5 (04:57→20:38)
[2019-03-18 04:59] LABS: Phosphorus 3.7 mg/dL (2.5-4.5); Potassium 3.9 mmol/L (3.5-5.1)
[2019-03-18] MEDS ORDERED: Potassium Replacement Protocol 1 EACH MISC MISCELLANE PRN (05:05)
[2019-03-18] MEDS: INSULIN ASPART (NovoLOG) 100 UNIT/ML VIAL SQ SCH ×3 (06:43→18:39)
[2019-03-18] MEDS: POTASSIUM CHLORIDE 10 MEQ in WATER FOR INJECTION 1 100ML.BAG IVPB SCH ×2 (06:49→08:25)
[2019-03-18] MEDS ORDERED: FUROSEMIDE 10 MG/ML 10 ML VIAL IV STA (06:57)
[2019-03-18 07:17] LABS: ABG Base Excess 3.3 mmol/L; ABG HCO3 27 mmol/L (21-25); ABG Oxygen Saturation 99.4 % (94-97); ABG PCO2 37 mmHg (35-45); ABG PH 7.47 (7.35-7.45); ABG PO2 156 mmHg (83-108); ABG TCO2 28 mmol/L (19-24)
[2019-03-18] MEDS: CHLORHEXIDINE GLUCONATE 15 ML CUP MUCOUS MEM SCH ×2 (08:24→22:28)
--- NOTE | 2019-03-18 09:06 | XR ---
EXAMINATION TYPE: XR chest 1V portable DATE OF EXAM: 03/18/2019 COMPARISON: 03/17/2019 INDICATION: Tube placement TECHNIQUE: Single frontal view of the chest is obtained. FINDINGS: The heart size is mildly prominent. The pulmonary vasculature is normal. There is some linear opacity within the right midlung may be some atelectasis or fluid along the leah r fissure. Small amount of right pleural effusion may be present. Some bibasilar infiltrates are pres ent. A small left pleural effusion may be present. Endotracheal tube tip is retracted slightly from the previous examination and is 2.7 cm above the car ronn. Nasogastric tube transverses the thorax in the midabdomen. IMPRESSION: 1. Bibasilar infiltrates. 2. Suspected small bilateral pleural effusions. 3. Fluid or atelectasis along the minor fissure on the right. 4. Cardiomegaly. 5. Lines and catheters discussed above.
[2019-03-18] MEDS: DEXAMETHASONE SOD PHOSPHATE 4 MG/ML 1 ML VIAL IV SCH ×2 (09:47→22:28)
--- NOTE | 2019-03-18 10:00 | P.NPCON ---
History of Present Illness - Reason for Consult acute renal failure - History of Present Illness Reason for consultation: Acute kidney injury History of present illness: Patient is a 73-year-old female seen in renal consultation for acute kidney injury. Her baseline creatinine is 1 and was elevated at 1.21 admission. It is up to 1.61 today. Patient presented to the hospital with generalized weakness. On the way to the hospital she also had a seizure in the car. Patient was hypotensive in the emergency room. Blood pressure was in the systolic 70s to 80s. She did receive 3 L of normal saline bolus and is now maintained on normal saline at 1 20 mL an hour. She is currently oliguric. She did receive 40 mg of Lasix last night and an additional 80 mg IV Lasix this morning with no response and urine output. She was noted to be bradycardic with heart rate in the 30s and was noted to be in complete heart block. She had a transvenous pacer placed last night. Currently the heart rate is 60 as set by the pacemaker. Blood pressure is 124/53. She is currently intubated and sedated. She was taking Lasix at home which is currently held. I don't see any nonsteroidals in her medication list. Vital signs are stable. General: The patient appeared well nourished and normally developed. Intubated. HEENT: Head exam is unremarkable. Neck is without jugular venous distension. LUNGS: Breath sounds decreased. HEART: Rate and Rhythm are regular. First and second heart sounds normal. No murmurs, rubs or gallops. ABDOMEN: Abdominal exam reveals normal bowel sounds. Non-tender and non-disten ded. No evidence of peritonitis. EXTREMITITES: 1+ edema. 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 History of Any Multi-Drug Resistant Organisms: None Reported Past Surgical History: Cholecystectomy, Tonsillectomy Additional Past Surgical History / Comment(s): 11/18 TVP placement with no pe rmanent pacer Past Anesthesia/Blood Transfusion Reactions: No Reported Reaction Past Psychological History: Anxiety, Depression Smoking Status: Former smoker Past Alcohol Use History: None Reported Past Drug Use History: None Reported - Past Family History Mother Family Medical History: Asthma Additional Family Medical History / Comment(s): depression Father Additional Family Medical History / Comment(s): ETOH Medications and Allergies Home Medications Medication Instructions Recorded Confirmed Type Albuterol Nebulized [Ventolin 2.5 mg INHALATION RT-DAILY 03/22/17 03/17/19 History Nebulized] Aspirin EC [Ecotrin Low Dose] 81 mg PO DAILY 03/22/17 03/17/19 History Ergocalciferol [Vitamin D2 50,000 unit PO MO 03/22/17 03/17/19 History (DRISDOL)] Montelukast [Singulair] 10 mg PO DAILY 03/22/17 03/17/19 History levETIRAcetam [Keppra] 500 mg PO BID 03/22/17 03/17/19 History Esomeprazole Magnesium [NexIUM] 40 mg PO BID 03/24/18 03/17/19 History Folic Acid 1 mg PO DAILY 03/24/18 03/17/19 History DULoxetine HCL [Cymbalta] 30 mg PO DAILY 11/25/18 03/17/19 History buPROPion HCL [Wellbutrin SR] 100 mg PO BID 11/25/18 03/17/19 History Acetaminophen [Tylenol Arthritis] 650 mg PO DAILY PRN 02/08/19 03/17/19 History Albuterol Sulfate [Proair Hfa] 1 - 2 puff INHALATION RT-Q6H PRN 02/08/19 03/17/19 History Docusate [Colace] 100 mg PO DAILY 02/08/19 03/17/19 History Fluticasone/Vilanterol [Breo 1 puff INHALATION RT-DAILY 02/08/19 03/17/19 History Ellipta 100-25 Mcg Inhaler] Furosemide [Lasix] 60 mg PO DAILY 02/08/19 03/17/19 History ALPRAZolam [Xanax] 0.25 mg PO BID PRN #6 tab 02/12/19 03/17/19 Rx Dexamethasone [Hexadrol] 2 mg PO DAILY #0 02/12/19 03/17/19 Rx Repaglinide [Prandin] 1 mg PO TID 03/17/19 03/17/19 History Teriparatide [Forteo] 20 mcg SQ DAILY 03/17/19 03/17/19 History Allergies Allergy/AdvReac Type Severity Reaction Status Date / Time Penicillins Allergy Rash/Hives Verified 03/17/19 19:56 Physical Exam Vitals: Vital Signs Temp Pulse Pulse Resp BP BP Pulse Ox 03/18/19 09:00 60 16 107/74 98 03/18/19 08:45 60 20 107/74 97 03/18/19 08:30 60 20 98 03/18/19 08:15 60 20 97 03/18/19 08:00 99.0 F 60 18 107/74 97 03/18/19 07:45 60 20 107/74 98 03/18/19 07:30 60 20 107/74 98 03/18/19 07:15 60 20 107/74 97 03/18/19 07:00 60 20 107/74 98 03/18/19 06:00 60 20 107/74 90 L 03/18/19 05:45 60 20 107/74 99 03/18/19 05:30 21 107/74 99 03/18/19 05:15 110 H 27 H 107/74 98 03/18/19 05:00 60 20 107/74 99 03/18/19 04:45 60 20 107/74 98 03/18/19 04:30 60 19 97 03/18/19 04:15 63 20 98 03/18/19 04:00 98.2 F 60 59 L 20 97 03/18/19 03:45 60 20 98 03/18/19 03:30 60 20 98 03/18/19 03:15 60 20 99 03/18/19 03:00 63 20 98 03/18/19 02:45 60 20 99 03/18/19 02:30 61 20 100 03/18/19 02:15 60 20 99 03/18/19 02:00 61 20 99 03/18/19 01:45 60 20 92 L 03/18/19 01:30 60 20 96 03/18/19 01:20 60 20 97 03/18/19 01:10 60 20 95 03/18/19 01:00 77 7 L 97 03/18/19 00:50 89 7 L 97 03/18/19 00:40 67 9 L 98 03/18/19 00:30 60 17 107/74 99 03/18/19 00:20 60 20 69/50 99 03/18/19 00:10 60 20 69/50 98 03/18/19 00:00 96.6 F L 88 59 L 20 87/70 97 03/17/19 23:50 56 L 20 98 03/17/19 23:40 49 L 20 100 03/17/19 23:30 109 H 27 H 100 03/17/19 23:20 50 L 20 99 03/17/19 23:10 50 L 18 97 03/17/19 23:00 49 L 24 98 03/17/19 22:50 49 L 13 98 03/17/19 22:40 49 L 12 98 03/17/19 22:30 49 L 11 L 98 03/17/19 22:21 96 F L 49 L 18 98 03/17/19 21:12 99 03/17/19 21:11 96 F L 20 111/59 03/17/19 20:56 30 L 24 103/89 99 03/17/19 20:48 30 L 24 109/79 94 L 03/17/19 20:37 33 L 24 91/47 93 L 03/17/19 20:30 97.9 F 33 L 18 81/37 94 L 03/17/19 20:21 33 L 22 81/38 95 03/17/19 20:13 34 L 18 92/64 98 03/17/19 20:02 31 L 20 66/30 100 03/17/19 19:53 31 L 20 122/90 100 03/17/19 19:48 27 L 20 85/59 100 03/17/19 19:41 32 L 20 111/87 100 03/17/19 19:30 22 L 20 76/63 100 03/17/19 19:10 27 L 20 121/79 99 03/17/19 19:04 25 L 03/17/19 18:58 98.5 F 29 L 16 107/71 98 Intake and Output 03/17/19 03/18/19 03/18/19 22:59 06:59 14:59 Intake Total 150 3216.862 388.514 Output Total 80 52 10 Balance 70 3164.862 378.514 Intake: IV 150 3061 169 0.9 TVP 140 60 Sodium Chloride 0.9% 1, 100 800 100 000 ml @ 100 mls/hr IV . Q10H STA Rx#:[id number] Sodium Chloride 0.9% 1, 1000 000 ml @ 999 mls/hr IV . Q1H1M ONE Rx#:[id number] Sodium Chloride 0.9% 1, 1000 000 ml @ 999 mls/hr IV . Q1H1M ONE Rx#:[id number] levETIRAcetam IV 500 mg 100 In Sodium Chloride 0.9% 100 ml @ 400 mls/hr IVPB ONCE STA Rx#:[id number] pressure bag 21 9 Intake, IV Titration 155.862 219.514 Amount Norepinephrine 4 mg In 89.919 134.727 Sodium Chloride 0.9% 250 ml @ 0.05 MCG/KG/MIN 22. 294 mls/hr IV .[id number] [facility] Rx#:[id number] Propofol 1,000 mg In 65.943 84.787 Empty Bag 1 bag @ Titrate IV .Q0M [facility] Rx#: [id number] Output: Urine 80 52 10 Uretheral ([place]) 80 Other: Voiding Method Indwelling Catheter Indwelling Catheter Weight 117.027 kg 118.8 kg ABP, PAP, CO, CI - Last 8 Hours Arterial Blood Pressure 124/53 Arterial Blood Pressure 107/47 Arterial Blood Pressure 108/48 Arterial Blood Pressure 110/46 Arterial Blood Pressure 129/55 Arterial Blood Pressure 118/52 Arterial Blood Pressure 119/51 Arterial Blood Pressure 130/54 Arterial Blood Pressure 127/55 Arterial Blood Pressure 120/54 Arterial Blood Pressure 117/55 Arterial Blood Pressure 118/55 Arterial Blood Pressure 124/57 Arterial Blood Pressure 144/65 Arterial Blood Pressure 109/53 Arterial Blood Pressure 115/55 Arterial Blood Pressure 111/54 Arterial Blood Pressure 108/53 Arterial Blood Pressure 113/56 Arterial Blood Pressure 103/51 Arterial Blood Pressure 114/57 Arterial Blood Pressure 109/55 Arterial Blood Pressure 113/53 Arterial Blood Pressure 114/57 Arterial Blood Pressure 110/57 Arterial Blood Pressure 112/57 Results - Lab Results Most recent lab results ABG pH 7.47 (7.35-7.45) H 03/18/19 07:15 ABG pCO2 37 mmHg (35-45) 03/18/19 07:15 ABG pO2 156 mmHg (83-108) H 03/18/19 07:15 ABG HCO3 27 mmol/L (21-25) H 03/18/19 07:15 ABG O2 Saturation 99.4 % (94-97) H 03/18/19 07:15 Calcium 8.0 mg/dL (8.4-10.2) L 03/18/19 04:24 Phosphorus 3.7 mg/dL (2.5-4.5) 03/18/19 04:24 Magnesium 2.0 mg/dL (1.6-2.3) 03/18/19 04:24 03/18/19 04:24 03/18/19 04:24 Assessment and Plan Plan: Assessment: 1. Acute kidney injury secondary to ATN secondary to hypotension and hemodynami c instability. Creatinine up to 1.6 today. Baseline creatinine near 1. No proteinuria on UA. 2. Bradycardia and complete heart block status post temporary transvenous pacemaker placement. 3. Hypervolemic hyponatremia improved with IV hydration. 4. Lactic acidosis secondary to hypotension. Improved with IV hydration. 5. Hypotension currently maintained on 6 mics of Levophed. Plan: Maintain normal saline at 100 mL an hour. Hold off on diuretics today. Repeat BMP this evening. Continue to monitor renal function and urine output. Wean vasopressors. If no improvement in renal function and urine output in the next 24-48 hours, will need renal replacement therapy. Thank you for the consultation. I will continue to follow the patient with you during her hospital stay.
--- NOTE | 2019-03-18 10:46 | PN ---
PROGRESS NOTE Isabel is a 73-year-old lady with history of obstructive sleep apnea, diabetes, COPD, and sick sinus syndrome, status post temporary pacemaker in November, who presented to the hospital having had an episode of syncope and was found to be in complete heart block and required temporary transvenous pacemaker. Last night she deteriorated. She became short of breath and initially was on a non-rebreather. Subsequently had to be intubated and is currently on vent. She is pacing, does not have any underlying rhythm at this time. She is intubated, sedated. Blood cultures have been done and are pending at this time. Because of hypotension and bradycardia and renal hypoperfusion, patient developed renal insufficiency. The patient had an admission back in November at that time too her clinical presentation was very similar, but she had episodes of nausea, vomiting, and it was felt at that time that her bradycardia was vasovagal in origin. She has subsequently been seen by Dr. Mcnamara. On this admission, her white cell count is 13.8, it was 19.4 on her initial presentation. Blood cultures have been done and results are pending at this time. Her blood gases show a pH of 7.4, pO2 of 150. This morning, BUN is 24, creatinine is 1.6. Her baseline creatinine is around 1. TSH is normal. PHYSICAL EXAMINATION: On exam, patient is intubated on vent, requiring Levophed. Heart rate is 60 beats per minute. Blood pressure is 107/70. Respiratory rate is 16. Chest exam reveals diminished air entry at the bases. Heart exam reveals first and second heart sounds. No gallop. Examination of extremities did not reveal any edema. Peripheral pulses are felt. ASSESSMENT: 1. Symptomatic complete heart block. 2. Respiratory failure. 3. Renal failure secondary to acute tubular necrosis. PLAN: Will await for the blood cultures. I spoke to Dr. Crowell the tip mender who does not think her clinical presentation is consistent with sepsis blood cultures are negative. White cell count is coming down. The patient will undergo permanent pacemaker. I spoke to Dr. Mcnamara, her primary folder inspector and this will be done over the next few days depending upon how she evolves and whether she has sepsis or not. Will continue the antibiotics. Continue the Levophed as needed. Pacemaker is functioning normally. She had a chest x-ray today that shows atelectasis and her temporary pacemaker lead is noted in the right ventricle. She has bilateral pleural effusions. MMODL / IJN: [id number] /
[2019-03-18] MEDS ORDERED: IPRATROPIUM-ALBUTEROL 3 ML NEB INHALATION PRN (11:32)
--- NOTE | 2019-03-18 11:33 | P.CNPUL ---
History of Present Illness Consult date: 03/18/19 Requesting physician: Kimberley Sharif Reason for consult: dyspnea, other Chief complaint: Third-degree heart block History of present illness: This is a 73-year-old white female patient with multiple comorbid conditions, with previous history of complete heart block requiring temporary pacemaker De 2017. Patient at that time clinically improved, and did not require placement of a permanent pacemaker. On patient was brought to the hospital by her daughter for weakness, lethargy, on the way to the hospital patient had a seizure. Does have underlying history of seizure disorder, currently on Keppra. Other medical history includes COPD/asthma, diabetes mellitus, chronic congestive heart failure, hypertension, osteoarthritis, sleep apnea, anxiety, depression, smoking history. Patient is on dexamethasone 4 history of a meningioma, or some type of a benign brain lesion, the details are not available to us. On arrival to the hospital she was found to be bradycardic with a heart rate in the 30s and the rhythm was a complete heart block. Dopamine was started however the right did not improve, she was symptomatic, was also hypotensive with systolic blood pressure ranging from 60s to 80s. Fluid challenge was given, 2-1/2 L of IV normal saline. She was taken to the yard lab[facility], where a transvenous pacemaker was inserted via right groin, right femoral art line was inserted. Patient returned to the intensive care unit, on the 100% nonrebreather, however her respiratory status continued to decline, she was increasingly lethargic, blood gas showed pO2 of 56, pCO2 of 77, and pH of 7.25, and this was done and FiO2 of 40%, BiPAP support was initially attempted, however patient failed. Patient was intubated, placed on mechanical ventilator. This morning she seen in the intensive care unit, sedated and intubated on mechanical ventilator, and settings are assist-control mode with a rate of 20, tidal at 450, FiO2 of 40%, and PEEP of 5. This morning blood gases showed pO2 of 156, pCO2 of 37, pH is 7.47, on those settings. IV 0.9 normal saline at a rate of 20, Diprivan and is at 35 mics per kilo per minute, and levo fed is at 7 mics per minute. Dopamine had been discontinued as the patient had no response to it. She is currently being paced at a rate of 60 BPM transvenous pacemaker. It showed bibasilar infiltrates, suspected small bilateral pleural effusions, atelectasis along the minor fissure on the right, patient has a chronic elevation of the left hemidiaphragm. This morning his blood work showed white blood cell count of 13.8, hemoglobin of 9.1, serum sodium is 134, potassium is 3.9, chloride is 99, CO2 was 26, B1 is 24, creatinine is 1.61, TSH was within normal limits at 1.470, lactic acid was 1.3 from 3.8. Blood cultures, urine culture, urine cultures have been sent. Emiliano antibiotic coverage in the form of Rocephin. Review of Systems All systems: negative Constitutional: Reports lethargy, Reports weakness, Denies chills, Denies fever Eyes: denies blurred vision, denies pain Ears, nose, mouth and throat: Denies headache, Denies sore throat Cardiovascular: Denies chest pain, Denies shortness of breath Respiratory: Reports dyspnea, Denies cough Gastrointestinal: Denies abdominal pain, Denies diarrhea, Denies nausea, Denies vomiting Genitourinary: Denies dysuria, Denies hematuria Musculoskeletal: Denies myalgias Integumentary: Denies pruritus, Denies rash Neurological: Reports seizures, Denies numbness, Denies weakness Psychiatric: Denies anxiety, Denies depression Endocrine: Denies fatigue, Denies weight change 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 History of Any Multi-Drug Resistant Organisms: None Reported Past Surgical History: Cholecystectomy, Tonsillectomy Additional Past Surgical History / Comment(s): 11/18 TVP placement with no permanent pacer Past Anesthesia/Blood Transfusion Reactions: No Reported Reaction Past Psychological History: Anxiety, Depression Smoking Status: Former smoker Past Alcohol Use History: None Reported Past Drug Use History: None Reported - Past Family History Mother Family Medical History: Asthma Additional Family Medical History / Comment(s): depression Father Additional Family Medical History / Comment(s): ETOH Medications and Allergies Home Medications Medication Instructions Recorded Confirmed Type Albuterol Nebulized [Ventolin 2.5 mg INHALATION RT-DAILY 03/22/17 03/17/19 History Nebulized] Aspirin EC [Ecotrin Low Dose] 81 mg PO DAILY 03/22/17 03/17/19 History Ergocalciferol [Vitamin D2 50,000 unit PO MO 03/22/17 03/17/19 History (DRISDOL)] Montelukast [Singulair] 10 mg PO DAILY 03/22/17 03/17/19 History levETIRAcetam [Keppra] 500 mg PO BID 03/22/17 03/17/19 History Esomeprazole Magnesium [NexIUM] 40 mg PO BID 03/24/18 03/17/19 History Folic Acid 1 mg PO DAILY 03/24/18 03/17/19 History DULoxetine HCL [Cymbalta] 30 mg PO DAILY 11/25/18 03/17/19 History buPROPion HCL [Wellbutrin SR] 100 mg PO BID 11/25/18 03/17/19 History Acetaminophen [Tylenol Arthritis] 650 mg PO DAILY PRN 02/08/19 03/17/19 History Albuterol Sulfate [Proair Hfa] 1 - 2 puff INHALATION RT-Q6H PRN 02/08/19 03/17/19 History Docusate [Colace] 100 mg PO DAILY 02/08/19 03/17/19 History Fluticasone/Vilanterol [Breo 1 puff INHALATION RT-DAILY 02/08/19 03/17/19 History Ellipta 100-25 Mcg Inhaler] Furosemide [Lasix] 60 mg PO DAILY 02/08/19 03/17/19 History ALPRAZolam [Xanax] 0.25 mg PO BID PRN #6 tab 02/12/19 03/17/19 Rx Dexamethasone [Hexadrol] 2 mg PO DAILY #0 02/12/19 03/17/19 Rx Repaglinide [Prandin] 1 mg PO TID 03/17/19 03/17/19 History Teriparatide [Forteo] 20 mcg SQ DAILY 03/17/19 03/17/19 History Allergies Allergy/AdvReac Type Severity Reaction Status Date / Time Penicillins Allergy Rash/Hives Verified 03/17/19 19:56 Physical Exam Vitals: Vital Signs Temp Pulse Pulse Resp BP BP Pulse Ox 03/18/19 10:00 60 16 107/74 96 03/18/19 09:45 60 16 107/74 97 03/18/19 09:30 60 16 97 03/18/19 09:15 60 16 107/74 98 03/18/19 09:00 60 16 107/74 98 03/18/19 08:45 60 20 107/74 97 03/18/19 08:30 60 20 98 03/18/19 08:15 60 20 97 03/18/19 08:00 99.0 F 60 18 107/74 97 03/18/19 07:45 60 20 107/74 98 03/18/19 07:30 60 20 107/74 98 03/18/19 07:15 60 20 107/74 97 03/18/19 07:00 60 20 107/74 98 03/18/19 06:00 60 20 107/74 90 L 03/18/19 05:45 60 20 107/74 99 03/18/19 05:30 21 107/74 99 03/18/19 05:15 110 H 27 H 107/74 98 03/18/19 05:00 60 20 107/74 99 03/18/19 04:45 60 20 107/74 98 03/18/19 04:30 60 19 97 03/18/19 04:15 63 20 98 03/18/19 04:00 98.2 F 60 59 L 20 97 03/18/19 03:45 60 20 98 03/18/19 03:30 60 20 98 03/18/19 03:15 60 20 99 03/18/19 03:00 63 20 98 03/18/19 02:45 60 20 99 03/18/19 02:30 61 20 100 03/18/19 02:15 60 20 99 03/18/19 02:00 61 20 99 03/18/19 01:45 60 20 92 L 03/18/19 01:30 60 20 96 03/18/19 01:20 60 20 97 03/18/19 01:10 60 20 95 03/18/19 01:00 77 7 L 97 03/18/19 00:50 89 7 L 97 03/18/19 00:40 67 9 L 98 03/18/19 00:30 60 17 107/74 99 04/17/19 00:20 60 20 69/50 99 03/18/19 00:10 60 20 69/50 98 03/18/19 00:00 96.6 F L 88 59 L 20 87/70 97 03/17/19 23:50 56 L 20 98 03/17/19 23:40 49 L 20 100 03/17/19 23:30 109 H 27 H 100 03/17/19 23:20 50 L 20 99 03/17/19 23:10 50 L 18 97 03/17/19 23:00 49 L 24 98 03/17/19 22:50 49 L 13 98 03/17/19 22:40 49 L 12 98 03/17/19 22:30 49 L 11 L 98 03/17/19 22:21 96 F L 49 L 18 98 03/17/19 21:12 99 03/17/19 21:11 96 F L 20 111/59 03/17/19 20:56 30 L 24 103/89 99 03/17/19 20:48 30 L 24 109/79 94 L 03/17/19 20:37 33 L 24 91/47 93 L 03/17/19 20:30 97.9 F 33 L 18 81/37 94 L 03/17/19 20:21 33 L 22 81/38 95 03/17/19 20:13 34 L 18 92/64 98 03/17/19 20:02 31 L 20 66/30 100 03/17/19 19:53 31 L 20 122/90 100 03/17/19 19:48 27 L 20 85/59 100 03/17/19 19:41 32 L 20 111/87 100 03/17/19 19:30 22 L 20 76/63 100 03/17/19 19:10 27 L 20 121/79 99 03/17/19 19:04 25 L 03/17/19 18:58 98.5 F 29 L 16 107/71 98 Intake and Output 03/17/19 03/18/19 03/18/19 22:59 06:59 14:59 Intake Total 150 3216.862 498.521 Output Total 80 52 15 Balance 70 3164.862 483.521 Intake: IV 150 3061 192 0.9 TVP 140 80 Sodium Chloride 0.9% 1, 100 800 100 000 ml @ 100 mls/hr IV . Q10H STA Rx#:[id number] Sodium Chloride 0.9% 1, 1000 000 ml @ 999 mls/hr IV . Q1H1M ONE Rx#:[id number] Sodium Chloride 0.9% 1, 1000 000 ml @ 999 mls/hr IV . Q1H1M ONE Rx#:[id number] levETIRAcetam IV 500 mg 100 In Sodium Chloride 0.9% 100 ml @ 400 mls/hr IVPB ONCE STA Rx#:[id number] pressure bag 21 12 Intake, IV Titration 155.862 306.521 Amount Norepinephrine 4 mg In 89.919 171.734 Sodium Chloride 0.9% 250 ml @ 0.05 MCG/KG/MIN 22. 294 mls/hr IV .[id number] [facility] Rx#:[id number] Propofol 1,000 mg In 65.943 84.787 Empty Bag 1 bag @ Titrate IV .Q0M [facility] Rx#: [id number] cefTRIAXone 1 gm In 50 Sodium Chloride 0.9% 50 ml @ 100 mls/hr IVPB Q24HR [facility] Rx#:[id number] Output: Urine 80 52 15 Uretheral ([place]) 80 Other: Voiding Method Indwelling Catheter Indwelling Catheter Weight 117.027 kg 118.8 kg ABP, PAP, CO, CI - Last 8 Hours Arterial Blood Pressure 132/56 Arterial Blood Pressure 128/55 Arterial Blood Pressure 95/39 Arterial Blood Pressure 122/53 Arterial Blood Pressure 124/53 Arterial Blood Pressure 107/47 Arterial Blood Pressure 108/48 Arterial Blood Pressure 110/46 Arterial Blood Pressure 129/55 Arterial Blood Pressure 118/52 Arterial Blood Pressure 119/51 Arterial Blood Pressure 130/54 Arterial Blood Pressure 127/55 Arterial Blood Pressure 120/54 Arterial Blood Pressure 117/55 Arterial Blood Pressure 118/55 Arterial Blood Pressure 124/57 Arterial Blood Pressure 144/65 Arterial Blood Pressure 109/53 Arterial Blood Pressure 115/55 Arterial Blood Pressure 111/54 Arterial Blood Pressure 108/53 Arterial Blood Pressure 113/56 Arterial Blood Pressure 103/51 Arterial Blood Pressure 114/57 Arterial Blood Pressure 109/55 Arterial Blood Pressure 113/53 GENERAL EXAM: Obese 73-year-old white female, intubated on mechanical ventilator, sedated, comfortable in no apparent distress. HEAD: Normocephalic/atraumatic. EYES: Normal reaction of pupils, equal size. Conjunctiva pink, sclera white. NOSE: Clear with pink turbinates. THROAT: No erythema or exudates. NECK: No masses, no JVD, no thyroid enlargement, no adenopathy. CHEST: No chest wall deformity. Symmetrical expansion. LUNGS: Equal air entry with no crackles, wheeze, rhonchi or dullness. Diminished Breath sounds at the bases CVS: Regular rate and rhythm, normal S1 and S2, no gallops, no murmurs, no rubs ABDOMEN: Soft, nontender. No hepatosplenomegaly, normal bowel sounds, no guarding or rigidity. EXTREMITIES: No clubbing, no edema, no cyanosis, 2+ pulses and upper and lower extremities. MUSCULOSKELETAL: Muscle strength and tone normal. Right groin transvenous temporary pacemaker is in, patient is paced at a rate of 60 BPM. Femoral art line is in SPINE: No scoliosis or deformity SKIN: No rashes CENTRAL NERVOUS SYSTEM: Sedated. No focal deficits, tone is normal in all 4 extremities. Results - Laboratory Findings CBC and BMP: 03/18/19 04:24 03/18/19 04:24 ABG ABG pH 7.47 (7.35-7.45) H 03/18/19 07:15 ABG pCO2 37 mmHg (35-45) 03/18/19 07:15 ABG pO2 156 mmHg (83-108) H 03/18/19 07:15 ABG O2 Saturation 99.4 % (94-97) H 03/18/19 07:15 PT/INR, D-dimer D-Dimer 2.32 mg/L FEU (<0.60) H 03/18/19 00:01 Abnormal lab findings: Abnormal Labs 03/17/19 03/17/19 03/17/19 19:00 19:00 19:08 WBC 19.4 H RBC 3.43 L Hgb 10.1 L Hct 31.5 L Plt Count 468 H Neutrophils # 15.6 H Lymphocytes # Monocytes # 1.1 H D-Dimer ABG pH ABG pCO2 ABG pO2 ABG HCO3 ABG Total CO2 ABG O2 Saturation Sodium 131 L Chloride 89 L BUN 21 H Creatinine 1.21 H Glucose 244 H POC Glucose (mg/dL) 265 H Plasma Lactic Acid Margarito Calcium Ur Leukocyte Esterase Urine WBC Urine Bacteria Urine Mucus 03/17/19 03/17/19 03/17/19 19:12 20:16 22:07 WBC RBC Hgb Hct Plt Count Neutrophils # Lymphocytes # Monocytes # D-Dimer ABG pH ABG pCO2 ABG pO2 ABG HCO3 ABG Total CO2 ABG O2 Saturation Sodium Chloride BUN Creatinine Glucose POC Glucose (mg/dL) 241 H Plasma Lactic Acid Margarito 3.8 H* Calcium Ur Leukocyte Esterase Moderate H Urine WBC 10 H Urine Bacteria Many H Urine Mucus Rare H 03/17/19 03/17/19 03/18/19 22:16 23:34 00:01 WBC RBC Hgb Hct Plt Count Neutrophils # Lymphocytes # Monocytes # D-Dimer 2.32 H ABG pH 7.25 L ABG pCO2 77 H* ABG pO2 56 L* 377 H ABG HCO3 34 H 30 H ABG Total CO2 36 H 31 H ABG O2 Saturation 81.9 L 100.0 H Sodium Chloride BUN Creatinine Glucose POC Glucose (mg/dL) Plasma Lactic Acid Margarito Calcium Ur Leukocyte Esterase Urine WBC Urine Bacteria Urine Mucus 03/18/19 03/18/19 03/18/19 04:24 04:24 04:30 WBC 13.8 H RBC 3.15 L Hgb 9.1 L Hct 28.4 L Plt Count Neutrophils # 11.9 H Lymphocytes # 0.9 L Monocytes # D-Dimer ABG pH ABG pCO2 ABG pO2 ABG HCO3 ABG Total CO2 ABG O2 Saturation Sodium 134 L Chloride BUN 24 H Creatinine 1.61 H Glucose 157 H POC Glucose (mg/dL) 172 H Plasma Lactic Acid Margarito Calcium 8.0 L Ur Leukocyte Esterase Urine WBC Urine Bacteria Urine Mucus 03/18/19 07:15 WBC RBC Hgb Hct Plt Count Neutrophils # Lymphocytes # Monocytes # D-Dimer ABG pH 7.47 H ABG pCO2 ABG pO2 156 H ABG HCO3 27 H ABG Total CO2 28 H ABG O2 Saturation 99.4 H Sodium Chloride BUN Creatinine Glucose POC Glucose (mg/dL) Plasma Lactic Acid Margarito Calcium Ur Leukocyte Esterase Urine WBC Urine Bacteria Urine Mucus - Diagnostic Findings Chest x-ray: report reviewed, image reviewed Additional studies: EKG reviewed Assessment and Plan Plan: Assessment: #1. Acute hypoxemic and hypercapnic respiratory failure related to hypoventilation. Chest x-ray showed bibasilar infiltrates, small bilateral pleural effusions. #2. Third-degree heart block, symptomatic bradycardia, status post transvenous pacemaker placement #3. Breakthrough seizures, despite Keppra #4. Mild lactic acidosis, possibly related to hypotension related to bradycardia and complete heart block, rule out sepsis, cultures are pending, patient is covered with empiric antibiotic coverage. Improved with hydration #5. Acute kidney injury secondary to ATN #6. Hypotension related to bradycardia #7. History of COPD, with a baseline FEV1 of 65% of predicted, patient has a component of restrictive and obstructive pulmonary defect. #8. Previous episode of complete heart block in November 2018 which was transient, resolved on its own, and patient did not require placement of a permanent pacemaker, requiring just a temporary transvenous pacemaker. Heart catheterization was performed at that time on 11/25/2018 revealing normal coronary arteries. Last echocardiogram showed preserved left ventricular systolic function with an EF of 50-55%, mild aortic stenosis with peak/mean gradient across the aortic valve of 19.9 mmHg/10.5 mmHg, no evidence of pulmonary hypertension, there was mild tricuspid regurgitation #9. Elevated d-dimer, nonspecific #10. Morbid obesity #11. Former nicotine dependence history Plan: Blood gases, chest x-rays have been reviewed, vent settings were adjusted, patient will remain on assist-control mode of ventilation will drop the rate down to 16, continue with the same tidal volume at 450, FiO2 down to 35% and PEEP will remain at 5. Patient was given a dose of Lasix, she is oliguric, she has been fluid resuscitated, she has received a total of 2-1/2 L of IV fluid boluses, her lactic acid has improved, she is being paced at a rate of 60 BPM, TSH was within normal limits, she does easily wake up from sedation, anticipate placement of a permanent pacemaker, etiology is following, and managing the care, nephrology is following. Blood cultures urine and sputum cultures have been sent, patient is on empiric antibiotic coverage, no fevers, will resume patient's home dose Keppra, Singulair, nebulized bronchodilators, GI and DVT prophylaxis. Will put the patient back on her Decadron, and 4 mg twice daily, will wean vasopressor support. We'll continue to follow I performed a history & physical examination of the patient and discussed their management with my nurse practitioner, Maggie Morin. I reviewed the nurse practitioner's note and agree with the documented findings and plan of care. Lung sounds are positive for breast sounds. The findings and the impression was discussed with the patient. I attest to the documentation by the nurse practitioner. Time with Patient: Greater than 30
[2019-03-18] MEDS ORDERED: levETIRAcetam 500 MG TAB PO SCH (11:45)
[2019-03-18 12:08] LABS: Glucose,Whole Blood 143 mg/dL (75-99)
[2019-03-18] MEDS: DULoxetine HCL 30 MG CAPSULE.DR PO SCH (12:23)
[2019-03-18] MEDS: FOLIC ACID 1 MG TAB PO SCH (12:36)
[2019-03-18] MEDS: MONTELUKAST 10 MG TAB PO SCH (12:36)
--- NOTE | 2019-03-18 14:28 | P.HPIM ---
History of Present Illness H&P Date: 03/18/19 This is a 73-year-old female patient of Dr. Loomis. Patient presented to the ER with complaints of unresponsiveness possible seizure per daughter. Per ER report patient was in the car with her daughter when she had a seizure episode lasting approximately 3 minutes. Patient then came to inpatient was brought to the ER. It is noted patient was bradycardic. 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 Patient was here recently and treated for acute COPD exacerbation. Patient had a prolonged admis fatmata in December in which she had a previous pacer placed at that time. EKG showing a complete heart block with a rate 29. Patient was taken to the cardiac [facility] [employer] Inspector history of 03/17/2019 and temporary venous pacer was placed at that time. Upon returning to the ICU patient went into respiratory distress and required intubation. Patient is also currently on pressure support medication. Patient's creatinine 1.61 and bun 24. Patient has had very little urine output. Patient has been given a total of 120 of Lasix. Critical care management are following. Patient currently has TVP in place. Patient remains in the intensive care unit. Review of Systems please refer to HPI otherwise unremarkable 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 History of Any Multi-Drug Resistant Organisms: None Reported Past Surgical History: Cholecystectomy, Tonsillectomy Additional Past Surgical History / Comment(s): 11/18 TVP placement with no permanent pacer Past Anesthesia/Blood Transfusion Reactions: No Reported Reaction Past Psychological History: Anxiety, Depression Smoking Status: Former smoker Past Alcohol Use History: None Reported Past Drug Use History: None Reported - Past Family History Mother Family Medical History: Asthma Additional Family Medical History / Comment(s): depression Father Additional Family Medical History / Comment(s): ETOH Medications and Allergies Home Medications Medication Instructions Recorded Confirmed Type Albuterol Nebulized [Ventolin 2.5 mg INHALATION RT-DAILY 03/22/17 03/17/19 History Nebulized] Aspirin EC [Ecotrin Low Dose] 81 mg PO DAILY 03/22/17 03/17/19 History Ergocalciferol [Vitamin D2 50,000 unit PO MO 03/22/17 03/17/19 History (DRISDOL)] Montelukast [Singulair] 10 mg PO DAILY 03/22/17 03/17/19 History levETIRAcetam [Keppra] 500 mg PO BID 03/22/17 03/17/19 History Esomeprazole Magnesium [NexIUM] 40 mg PO BID 03/24/18 03/17/19 History Folic Acid 1 mg PO DAILY 03/24/18 03/17/19 History DULoxetine HCL [Cymbalta] 30 mg PO DAILY 11/25/18 03/17/19 History buPROPion HCL [Wellbutrin SR] 100 mg PO BID 11/25/18 03/17/19 History Acetaminophen [Tylenol Arthritis] 650 mg PO DAILY PRN 02/08/19 03/17/19 History Albuterol Sulfate [Proair Hfa] 1 - 2 puff INHALATION RT-Q6H PRN 02/08/19 03/17/19 History Docusate [Colace] 100 mg PO DAILY 02/08/19 03/17/19 History Fluticasone/Vilanterol [Breo 1 puff INHALATION RT-DAILY 02/08/19 03/17/19 History Ellipta 100-25 Mcg Inhaler] Furosemide [Lasix] 60 mg PO DAILY 02/08/19 03/17/19 History ALPRAZolam [Xanax] 0.25 mg PO BID PRN #6 tab 02/12/19 03/17/19 Rx Dexamethasone [Hexadrol] 2 mg PO DAILY #0 02/12/19 03/17/19 Rx Repaglinide [Prandin] 1 mg PO TID 03/17/19 03/17/19 History Teriparatide [Forteo] 20 mcg SQ DAILY 03/17/19 03/17/19 History Allergies Allergy/AdvReac Type Severity Reaction Status Date / Time Penicillins Allergy Rash/Hives Verified 03/17/19 19:56 Physical Exam Vitals: Vital Signs Temp Pulse Pulse Resp BP BP Pulse Ox 03/18/19 08:45 60 20 107/74 97 03/18/19 08:30 60 20 98 03/18/19 08:15 60 20 97 03/18/19 08:00 99.0 F 60 18 107/74 97 03/18/19 07:45 60 20 107/74 98 03/18/19 07:30 60 20 107/74 98 03/18/19 07:15 60 20 107/74 97 03/18/19 07:00 60 20 107/74 98 03/18/19 06:00 60 20 107/74 90 L 03/18/19 05:45 60 20 107/74 99 03/18/19 05:30 21 107/74 99 03/18/19 05:15 110 H 27 H 107/74 98 03/18/19 05:00 60 20 107/74 99 03/18/19 04:45 60 20 107/74 98 03/18/19 04:30 60 19 97 03/18/19 04:15 63 20 98 03/18/19 04:00 98.2 F 60 59 L 20 97 03/18/19 03:45 60 20 98 03/18/19 03:30 60 20 98 03/18/19 03:15 60 20 99 03/18/19 03:00 63 20 98 03/18/19 02:45 60 20 99 03/18/19 02:30 61 20 100 03/18/19 02:15 60 20 99 03/18/19 02:00 61 20 99 03/18/19 01:45 60 20 92 L 03/18/19 01:30 60 20 96 03/18/19 01:20 60 20 97 03/18/19 01:10 60 20 95 03/18/19 01:00 77 7 L 97 03/18/19 00:50 89 7 L 97 03/18/19 00:40 67 9 L 98 03/18/19 00:30 60 17 107/74 99 03/18/19 00:20 60 20 69/50 99 03/18/19 00:10 60 20 69/50 98 03/18/19 00:00 96.6 F L 88 59 L 20 87/70 97 03/17/19 23:50 56 L 20 98 03/17/19 23:40 49 L 20 100 03/17/19 23:30 109 H 27 H 100 03/17/19 23:20 50 L 20 99 03/17/19 23:10 50 L 18 97 03/17/19 23:00 49 L 24 98 03/17/19 22:50 49 L 13 98 03/17/19 22:40 49 L 12 98 03/17/19 22:30 49 L 11 L 98 03/17/19 22:21 96 F L 49 L 18 98 03/17/19 21:12 99 03/17/19 21:11 96 F L 20 111/59 03/17/19 20:56 30 L 24 103/89 99 03/17/19 20:48 30 L 24 109/79 94 L 03/17/19 20:37 33 L 24 91/47 93 L 03/17/19 20:30 97.9 F 33 L 18 81/37 94 L 03/17/19 20:21 33 L 22 81/38 95 03/17/19 20:13 34 L 18 92/64 98 03/17/19 20:02 31 L 20 66/30 100 03/17/19 19:53 31 L 20 122/90 100 03/17/19 19:48 27 L 20 85/59 100 03/17/19 19:41 32 L 20 111/87 100 03/17/19 19:30 22 L 20 76/63 100 03/17/19 19:10 27 L 20 121/79 99 03/17/19 19:04 25 L 03/17/19 18:58 98.5 F 29 L 16 107/71 98 Intake and Output 03/17/19 03/18/19 03/18/19 22:59 06:59 14:59 Intake Total 150 3216.862 388.514 Output Total 80 52 10 Balance 70 3164.862 378.514 Intake: IV 150 3061 169 0.9 TVP 140 60 Sodium Chloride 0.9% 1, 100 800 100 000 ml @ 100 mls/hr IV . Q10H [facility] Rx#:[id number] Sodium Chloride 0.9% 1, 1000 000 ml @ 999 mls/hr IV . Q1H1M [facility] Rx#:[id number] Sodium Chloride 0.9% 1, 1000 000 ml @ 999 mls/hr IV . Q1H1M [facility] Rx#:[id number] levETIRAcetam IV 500 mg 100 In Sodium Chloride 0.9% 100 ml @ 400 mls/hr IVPB ONCE [facility] Rx#:[id number] pressure bag 21 9 Intake, IV Titration 155.862 219.514 Amount Norepinephrine 4 mg In 89.919 134.727 Sodium Chloride 0.9% 250 ml @ 0.05 MCG/KG/MIN 22. 294 mls/hr IV .[id number] [facility] [place] Rx#:[id number] Propofol 1,000 mg In 65.943 84.787 Empty Bag 1 bag @ Titrate IV .Q0M [facility] Rx#: [id number] Output: Urine 80 52 10 Uretheral ([place]) 80 Other: Voiding Method Indwelling Catheter Indwelling Catheter Weight 117.027 kg 118.8 kg ABP, PAP, CO, CI - Last 8 Hours Arterial Blood Pressure 107/47 Arterial Blood Pressure 108/48 Arterial Blood Pressure 110/46 Arterial Blood Pressure 129/55 Arterial Blood Pressure 118/52 Arterial Blood Pressure 119/51 Arterial Blood Pressure 130/54 Arterial Blood Pressure 127/55 Arterial Blood Pressure 120/54 Arterial Blood Pressure 117/55 Arterial Blood Pressure 118/55 Arterial Blood Pressure 124/57 Arterial Blood Pressure 144/65 Arterial Blood Pressure 109/53 Arterial Blood Pressure 115/55 Arterial Blood Pressure 111/54 Arterial Blood Pressure 108/53 Arterial Blood Pressure 113/56 Arterial Blood Pressure 103/51 Arterial Blood Pressure 114/57 Arterial Blood Pressure 109/55 Arterial Blood Pressure 113/53 Arterial Blood Pressure 114/57 Arterial Blood Pressure 110/57 Arterial Blood Pressure 112/57 Arterial Blood Pressure 101/55 Arterial Blood Pressure 110/58 Arterial Blood Pressure 106/58 Head normocephalic Neck supple Lungs mechanically ventilated at this time Heart regular rate and rhythm S1-S2, no rub or gallop Abdomen is soft nontender nondistended positive bowel sounds no hepatosplenomegaly Extremities no edema Neuro on sedation Results CBC & Chem 7: 03/18/19 04:24 03/18/19 04:24 Labs: Abnormal Lab Results - Last 24 Hours (Table) 03/17/19 03/17/19 03/17/19 Range/Units 19:00 19:00 19:08 WBC 19.4 H (3.8-10.6) k/uL RBC 3.43 L (3.80-5.40) m/uL Hgb 10.1 L (11.4-16.0) gm/dL Hct 31.5 L (34.0-46.0) % Plt Count 468 H (150-450) k/uL Neutrophils # 15.6 H (1.3-7.7) k/uL Lymphocytes # (1.0-4.8) k/uL Monocytes # 1.1 H (0-1.0) k/uL D-Dimer (<0.60) mg/L FEU ABG pH (7.35-7.45) ABG pCO2 (35-45) mmHg ABG pO2 (83-108) mmHg ABG HCO3 (21-25) mmol/L ABG Total CO2 (19-24) mmol/L ABG O2 Saturation (94-97) % Sodium 131 L (137-145) mmol/L Chloride 89 L (98-107) mmol/L BUN 21 H (7-17) mg/dL Creatinine 1.21 H (0.52-1.04) mg/dL Glucose 244 H (74-99) mg/dL POC Glucose (mg/dL) 265 H (75-99) mg/dL Plasma Lactic Acid Margarito (0.7-2.0) mmol/L Calcium (8.4-10.2) mg/dL Ur Leukocyte Esterase (Negative) Urine WBC (0-5) /hpf Urine Bacteria (None) /hpf Urine Mucus (None) /hpf 03/17/19 03/17/19 03/17/19 Range/Units 19:12 20:16 22:07 WBC (3.8-10.6) k/uL RBC (3.80-5.40) m/uL Hgb (11.4-16.0) gm/dL Hct (34.0-46.0) % Plt Count (150-450) k/uL Neutrophils # (1.3-7.7) k/uL Lymphocytes # (1.0-4.8) k/uL Monocytes # (0-1.0) k/uL D-Dimer (<0.60) mg/L FEU ABG pH (7.35-7.45) ABG pCO2 (35-45) mmHg ABG pO2 (83-108) mmHg ABG HCO3 (21-25) mmol/L ABG Total CO2 (19-24) mmol/L ABG O2 Saturation (94-97) % Sodium (137-145) mmol/L Chloride (98-107) mmol/L BUN (7-17) mg/dL Creatinine (0.52-1.04) mg/dL Glucose (74-99) mg/dL POC Glucose (mg/dL) 241 H (75-99) mg/dL Plasma Lactic Acid Margarito 3.8 H* (0.7-2.0) mmol/L Calcium (8.4-10.2) mg/dL Ur Leukocyte Esterase Moderate H (Negative) Urine WBC 10 H (0-5) /hpf Urine Bacteria Many H (None) /hpf Urine Mucus Rare H (None) /hpf 03/17/19 03/17/19 03/18/19 Range/Units 22:16 23:34 00:01 WBC (3.8-10.6) k/uL RBC (3.80-5.40) m/uL Hgb (11.4-16.0) gm/dL Hct (34.0-46.0) % Plt Count (150-450) k/uL Neutrophils # (1.3-7.7) k/uL Lymphocytes # (1.0-4.8) k/uL Monocytes # (0-1.0) k/uL D-Dimer 2.32 H (<0.60) mg/L FEU ABG pH 7.25 L (7.35-7.45) ABG pCO2 77 H* (35-45) mmHg ABG pO2 56 L* 377 H (83-108) mmHg ABG HCO3 34 H 30 H (21-25) mmol/L ABG Total CO2 36 H 31 H (19-24) mmol/L ABG O2 Saturation 81.9 L 100.0 H (94-97) % Sodium (137-145) mmol/L Chloride (98-107) mmol/L BUN (7-17) mg/dL Creatinine (0.52-1.04) mg/dL Glucose (74-99) mg/dL POC Glucose (mg/dL) (75-99) mg/dL Plasma Lactic Acid Margarito (0.7-2.0) mmol/L Calcium (8.4-10.2) mg/dL Ur Leukocyte Esterase (Negative) Urine WBC (0-5) /hpf Urine Bacteria (None) /hpf Urine Mucus (None) /hpf 03/18/19 03/18/19 03/18/19 Range/Units 04:24 04:24 04:30 WBC 13.8 H (3.8-10.6) k/uL RBC 3.15 L (3.80-5.40) m/uL Hgb 9.1 L (11.4-16.0) gm/dL Hct 28.4 L (34.0-46.0) % Plt Count (150-450) k/uL Neutrophils # 11.9 H (1.3-7.7) k/uL Lymphocytes # 0.9 L (1.0-4.8) k/uL Monocytes # (0-1.0) k/uL D-Dimer (<0.60) mg/L FEU ABG pH (7.35-7.45) ABG pCO2 (35-45) mmHg ABG pO2 (83-108) mmHg ABG HCO3 (21-25) mmol/L ABG Total CO2 (19-24) mmol/L ABG O2 Saturation (94-97) % Sodium 134 L (137-145) mmol/L Chloride (98-107) mmol/L BUN 24 H (7-17) mg/dL Creatinine 1.61 H (0.52-1.04) mg/dL Glucose 157 H (74-99) mg/dL POC Glucose (mg/dL) 172 H (75-99) mg/dL Plasma Lactic Acid Margarito (0.7-2.0) mmol/L Calcium 8.0 L (8.4-10.2) mg/dL Ur Leukocyte Esterase (Negative) Urine WBC (0-5) /hpf Urine Bacteria (None) /hpf Urine Mucus (None) /hpf 03/18/19 Range/Units 07:15 WBC (3.8-10.6) k/uL RBC (3.80-5.40) m/uL Hgb (11.4-16.0) gm/dL Hct (34.0-46.0) % Plt Count (150-450) k/uL Neutrophils # (1.3-7.7) k/uL Lymphocytes # (1.0-4.8) k/uL Monocytes # (0-1.0) k/uL D-Dimer (<0.60) mg/L FEU ABG pH 7.47 H (7.35-7.45) ABG pCO2 (35-45) mmHg ABG pO2 156 H (83-108) mmHg ABG HCO3 27 H (21-25) mmol/L ABG Total CO2 28 H (19-24) mmol/L ABG O2 Saturation 99.4 H (94-97) % Sodium (137-145) mmol/L Chloride (98-107) mmol/L BUN (7-17) mg/dL Creatinine (0.52-1.04) mg/dL Glucose (74-99) mg/dL POC Glucose (mg/dL) (75-99) mg/dL Plasma Lactic Acid Margarito (0.7-2.0) mmol/L Calcium (8.4-10.2) mg/dL Ur Leukocyte Esterase (Negative) Urine WBC (0-5) /hpf Urine Bacteria (None) /hpf Urine Mucus (None) /hpf Thrombosis Risk Factor Assmnt - Choose All That Apply Any of the Below Risk Factors Present?: Yes Each Factor Represents 1 point: Medical pt on bed rest, Minor surgery planned, Obesity (BMI >25) Other Risk Factors: Yes Each Risk Factor Represents 2 Points: Age 61-74 years Thrombosis Risk Factor Assessment Total Risk Factor Score: 5 Thrombosis Risk Factor Assessment Level: High Risk Assessment and Plan Assessment: 1. Third-degree heart block, symptomatic bradycardic. Patient has a trans venous pacemaker placement per cardiology. Cardiology services following 2. Acute hypoxic and hypercapnic respiratory failure requiring mechanical ventilation. Pulmonary critical care service is following. 3. Possible Seizures. Patient is maintained on Keppra. Keppra level has been ordered, CT of head ordered. EKG ordered. Keppra has been increased to 500 IV 3 times a day 4. Acute kidney injury secondary to ATN secondary to hypotension hemodynamically instability. Nephrology services are following. Patient received 120 of Lasix. Creatinine up to 1.6 today. 5. Hypotension related to hypotension. Patient is maintained on Levophed for pressure support at this time 6. Urinary tract infection. UA positive for leukocyte esterase. Urine culture ordered. Patient currently maintained on Rocephin 7. History of COPD. 8. Previous episode of complete heart block in November 2018 which was transient. Patient did have TVP at that time. 9. Underlying history of seizure disorder which she is maintained on Keppra 10. History of depression and anxiety 11. History of obstructive sleep apnea 12. History of chronic cor pulmonale 13. History of brain meningioma. Maintained on dexamethasone 14. Lactic acidosis. Initial lactic acid 3.8. Repeat 1.3. Patient positive for UTI. Patient currently maintained on Rocephin DVT prophylaxis Lovenox. GI prophylaxis Protonix Critical care, cardiology and nephrology services following Time with Patient: Greater than 30 (Greater than 60% of the total time spent in counseling and coordination of care. I performed an examination of the patient and discussed their management with the Nurse Practitioner. I have reviewed the Nurse Practitioner's notes and agree with the documented findings and plan of care)
[2019-03-18] MEDS: IPRATROPIUM-ALBUTEROL 3 ML NEB INHALATION SCH ×4 (15:44→23:29)
[2019-03-18] MEDS: levETIRAcetam IV 500 MG in SODIUM CHLORIDE 0.9% 100 ML IVPB SCH (16:14)
[2019-03-18 18:45] LABS: Glucose,Whole Blood 175 mg/dL (75-99)
[2019-03-18 19:03] LABS: Calcium 7.7 mg/dL (8.4-10.2)
--- NOTE | 2019-03-18 20:24 | CT ---
EXAMINATION: CT brain wo con DATE AND TIME: 03/18/2019 5:54 PM CLINICAL INDICATION: PHH; Possible seizures, history of brain meningioma . Intubated patient. TECHNIQUE: Standard departmental protocol.; 1231.4; COMPARISON: CT 03/22/2017 FINDINGS: The calvarium is intact. There is no intracranial hemorrhage. There is no definite new attenuation defect. However, there is diffuse low attenuation throughout the white matter of the posterior right frontal and the entire right parietal lobe. This has the appearance of vasogenic edema, and a similar pattern was seen on the 03/22/2017 CT. The paranasal sinuses, middle ear cavities, and mastoid sinus air cells are clear. The orbits are unr emarkable. IMPRESSION: No definite acute process.
[2019-03-19] MEDS: NOREPINEPHRINE 4 MG in SODIUM CHLORIDE 0.9% 250 ML IV SCH ×3 (00:34→20:10)
[2019-03-19] MEDS: PROPOFOL 1,000 MG in EMPTY BAG 1 BAG IV SCH ×5 (00:38→18:50)
[2019-03-19 00:46] LABS: Glucose,Whole Blood 140 mg/dL (75-99)
[2019-03-19] MEDS: INSULIN ASPART (NovoLOG) 100 UNIT/ML VIAL SQ SCH ×4 (01:01→18:21)
[2019-03-19] MEDS: levETIRAcetam IV 500 MG in SODIUM CHLORIDE 0.9% 100 ML IVPB SCH ×3 (01:02→15:01)
[2019-03-19] MEDS: IPRATROPIUM-ALBUTEROL 3 ML NEB INHALATION SCH ×6 (03:25→23:14)
[2019-03-19 05:52] LABS: Basophils % (A) 0 %; Eosinophils % (A) 0 %; HCT 27.4 % (34.0-46.0); HGB 8.9 gm/dL (11.4-16.0); Lymphocytes # (A) 0.3 k/uL (1.0-4.8); Lymphocytes % (A) 3 %; MCH 29.6 pg (25.0-35.0); MCHC 32.6 g/dL (31.0-37.0); MCV 90.6 fL (80.0-100.0); Mean Platelet Volume 7.3; Monocytes # (A) 0.4 k/uL (0-1.0); Monocytes % (A) 3 %; Neutrophils # (A) 11.7 k/uL (1.3-7.7); Neutrophils % (A) 94 %; Platelet Count 346 k/uL (150-450); RBC 3.03 m/uL (3.80-5.40); RDW 14.5 % (11.5-15.5); WBC 12.5 k/uL (3.8-10.6)
[2019-03-19 06:25] LABS: Phosphorus 4.6 mg/dL (2.5-4.5)
[2019-03-19 06:57] LABS: Glucose,Whole Blood 170 mg/dL (75-99)
[2019-03-19 06:59] LABS: ABG Base Excess 1.8 mmol/L; ABG HCO3 26 mmol/L (21-25); ABG PCO2 40 mmHg (35-45); ABG PH 7.42 (7.35-7.45); ABG PO2 107 mmHg (83-108); ABG TCO2 28 mmol/L (19-24)
--- NOTE | 2019-03-19 07:16 | XR ---
EXAMINATION TYPE: XR chest 1V portable DATE OF EXAM: 03/19/2019 CLINICAL HISTORY: Difficulty breathing progress study. TECHNIQUE: Single AP portable semiupright view of the chest is obtained. COMPARISON: Chest x-ray from one day earlier and older studies. FINDINGS: Endotracheal tube and orogastric tube are stable in appearance. Overlying EKG leads are re demonstrated. There is persistent cardiomegaly with small bilateral pleural effusions and associated bibasilar atelectasis and/or infiltrate. There is right lateral pleural thickening felt present. Ther e are old lateral left mid rib fractures redemonstrated. IMPRESSION: Overall stable findings, cardiomegaly with small bilateral pleural effusions and associ ated bibasilar atelectasis and/or infiltrate all redemonstrated.
--- NOTE | 2019-03-19 07:25 | ECHOF ---
Referral Reason:Assess LV and RV function MEASUREMENTS -------- HEIGHT: 152.4 cm WEIGHT: 118.4 kg BP: 120/54 RVIDd: 2.8 cm (< 3.3) IVSd: 1.2 cm (0.6 - 1.1) LVIDd: 3.8 cm (3.9 - 5.3) LVPWd: 1.2 cm (0.6 - 1.1) IVSs: 1.7 cm LVIDs: 2.4 cm LVPWs: 1.5 cm LA Diam: 2.6 cm (2.7 - 3.8) Ao Diam: 3.4 cm (2.0 - 3.7) AV Cusp: 1.8 cm (1.5 - 2.6) MV EXCURSION: 13.536 mm (> 18.000) MV EF SLOPE: 32 mm/s (70 - 150) EPSS: 0.5 cm MV E Yony: 0.92 m/s MV DecT: 279 ms MV A Yony: 0.70 m/s MV E/A Ratio: 1.33 RAP: 15.00 mmHg RVSP: 39.32 mmHg FINDINGS -------- Paced rhythm. This was a technically difficult study with suboptimal views. The left ventricular size is normal. There is borderline concentric left ventricular hypertrophy. Overall left ventricular systolic function is mildly impaired with, an EF between 45 - 50 %. The right ventricle is mild to moderately enlarged. The left atrial size is normal. The right atrium was not well visualized. 4 ml of Lumason was utilized for enhancement of images. The aortic valve is trileaflet and appears structurally normal. The mitral valve leaflets are mildly thickened. Mild mitral annular calcification present. Mild m itral regurgitation is present. Mild tricuspid regurgitation present. There is mild pulmonary hypertension. The right ventricular systolic pressure, as measured by Doppler, is 39.32mmHg. The pulmonic valve was not well visualized. The aortic root size is normal. The inferior vena cava is dilated with no significant inspiratory collapse which is consistent estima jorge a right atrial pressure of >15 mmHg. CONCLUSIONS -------- 1. Paced rhythm. 2. This was a technically difficult study with suboptimal views. 3. The left ventricular size is normal. 4. There is borderline concentric left ventricular hypertrophy. 5. The right ventricle is mild to moderately enlarged. 6. The left atrial size is normal. 7. The right atrium was not well visualized. 8. 4 ml of Lumason was utilized for enhancement of images. 9. The aortic valve is trileaflet and appears structurally normal. 10. The mitral valve leaflets are mildly thickened. 11. Mild mitral annular calcification present. 12. Mild mitral regurgitation is present. 13. Mild tricuspid regurgitation present. 14. There is mild pulmonary hypertension. 15. The right ventricular systolic pressure, as measured by Doppler, is 39.32mmHg. 16. The pulmonic valve was not well visualized. 17. The aortic root size is normal. 18. The inferior vena cava is dilated with no significant inspiratory collapse which is consistent es timated right atrial pressure of >15 mmHg. BEARINGIZER: Karyn Bauer RDCS
[2019-03-19] MEDS: MONTELUKAST 10 MG TAB PO SCH (08:22)
[2019-03-19] MEDS: DULoxetine HCL 30 MG CAPSULE.DR PO SCH (08:22)
[2019-03-19] MEDS: PANTOPRAZOLE 40 MG/10 ML VIAL IVP SCH (08:51)
[2019-03-19] MEDS: CHLORHEXIDINE GLUCONATE 15 ML CUP MUCOUS MEM SCH ×2 (08:51→20:17)
[2019-03-19] MEDS: DEXAMETHASONE SOD PHOSPHATE 4 MG/ML 1 ML VIAL IV SCH ×2 (08:51→20:17)
[2019-03-19] MEDS: ENOXAPARIN 40 MG/0.4 ML SYRINGE SQ SCH (08:51)
--- NOTE | 2019-03-19 10:20 | P.PN ---
Subjective Patient is seen in follow-up for acute kidney injury. Her baseline creatinine is 1. It peaked at 1.89 yesterday and is stable at 1.87 this morning. She is currently maintained on normal saline at 100 mL an hour. Urine output is 30-40 mL an hour. Levophed was discontinued this morning. She is currently intubated and sedated. She has a transvenous pacer was placed on admission due to complete heart block. Echocardiogram revealed ejection fraction of 45-50%. Vital signs are stable. General: The patient appeared well nourished and normally developed. Intubated. HEENT: Head exam is unremarkable. Neck is without jugular venous distension. LUNGS: Breath sounds decreased. HEART: Rate and Rhythm are regular. First and second heart sounds normal. No murmurs, rubs or gallops. ABDOMEN: Abdominal exam reveals normal bowel sounds. Non-tender and non- distended. No evidence of peritonitis. EXTREMITITES: No clubbing, cyanosis, or edema. Objective - Vital Signs Vital signs: Vital Signs Temp 98.3 F 03/19/19 08:00 Pulse 60 03/19/19 10:00 Resp 16 03/19/19 10:00 BP 107/74 03/18/19 19:00 Pulse Ox 93 L 03/19/19 10:00 Intake & Output 03/18/19 03/19/19 03/19/19 18:59 06:59 18:59 Intake Total 3692.638 7884.596 407.089 Output Total 615 780 105 Balance 402.065 867.596 302.089 Weight 119.3 kg Intake: IV 399 1356 379 0.9 TVP 260 240 60 IV Fluid Continuation 1, 980 160 000 ml @ 0 mls/hr IV .STK -[facility] Rx#:[id number] Sodium Chloride 0.9% 1, 100 000 ml @ 100 mls/hr IV . Q10H [facility] Rx#:[id number] cefTRIAXone 1 gm In 50 Sodium Chloride 0.9% 50 ml @ 100 mls/hr IVPB Q24HR [facility] Rx#:[id number] levETIRAcetam IV 500 mg 100 100 In Sodium Chloride 0.9% 100 ml @ 400 mls/hr IVPB Q8HR [facility] Rx#:[id number] pressure bag 39 36 9 Intake, IV Titration 618.065 291.596 28.089 Amount Norepinephrine 4 mg In 283.278 44.959 28.089 Sodium Chloride 0.9% 250 ml @ 0.05 MCG/KG/MIN 22. 294 mls/hr IV .[id number] [facility] Rx#:[id number] Propofol 1,000 mg In 184.787 246.637 Empty Bag 1 bag @ Titrate IV .Q0M [facility] Rx#: [id number] cefTRIAXone 1 gm In 50 Sodium Chloride 0.9% 50 ml @ 100 mls/hr IVPB Q24HR [facility] Rx#:[id number] levETIRAcetam IV 500 mg 100 In Sodium Chloride 0.9% 100 ml @ 400 mls/hr IVPB Q8HR [facility] Rx#:[id number] Output: Gastric Drainage 100 Urine 615 680 105 Other: Voiding Method Indwelling Catheter Indwelling Catheter Indwelling Catheter ABP, PAP, CO, CI - Last Documented Arterial Blood Pressure 162/76 - Labs CBC & Chem 7: 03/19/19 05:20 03/19/19 05:20 Labs: Abnormal Lab Results - Last 24 Hours (Table) 03/18/19 03/18/19 03/18/19 Range/Units 11:56 18:34 18:35 WBC (3.8-10.6) k/uL RBC (3.80-5.40) m/uL Hgb (11.4-16.0) gm/dL Hct (34.0-46.0) % Neutrophils # (1.3-7.7) k/uL Lymphocytes # (1.0-4.8) k/uL ABG HCO3 (21-25) mmol/L ABG Total CO2 (19-24) mmol/L ABG O2 Saturation (94-97) % Sodium 134 L (137-145) mmol/L BUN 26 H (7-17) mg/dL Creatinine 1.89 H (0.52-1.04) mg/dL Glucose 148 H (74-99) mg/dL POC Glucose (mg/dL) 143 H 175 H (75-99) mg/dL Calcium 7.7 L (8.4-10.2) mg/dL Phosphorus (2.5-4.5) mg/dL 03/19/19 03/19/19 03/19/19 Range/Units 00:33 05:20 05:20 WBC 12.5 H (3.8-10.6) k/uL RBC 3.03 L (3.80-5.40) m/uL Hgb 8.9 L (11.4-16.0) gm/dL Hct 27.4 L (34.0-46.0) % Neutrophils # 11.7 H (1.3-7.7) k/uL Lymphocytes # 0.3 L (1.0-4.8) k/uL ABG HCO3 (21-25) mmol/L ABG Total CO2 (19-24) mmol/L ABG O2 Saturation (94-97) % Sodium 135 L (137-145) mmol/L BUN 27 H (7-17) mg/dL Creatinine 1.87 H (0.52-1.04) mg/dL Glucose 172 H (74-99) mg/dL POC Glucose (mg/dL) 140 H (75-99) mg/dL Calcium 8.0 L (8.4-10.2) mg/dL Phosphorus 4.6 H (2.5-4.5) mg/dL 03/19/19 03/19/19 Range/Units 06:45 06:51 WBC (3.8-10.6) k/uL RBC (3.80-5.40) m/uL Hgb (11.4-16.0) gm/dL Hct (34.0-46.0) % Neutrophils # (1.3-7.7) k/uL Lymphocytes # (1.0-4.8) k/uL ABG HCO3 26 H (21-25) mmol/L ABG Total CO2 28 H (19-24) mmol/L ABG O2 Saturation 98.0 H (94-97) % Sodium (137-145) mmol/L BUN (7-17) mg/dL Creatinine (0.52-1.04) mg/dL Glucose (74-99) mg/dL POC Glucose (mg/dL) 170 H (75-99) mg/dL Calcium (8.4-10.2) mg/dL Phosphorus (2.5-4.5) mg/dL Microbiology - Last 24 Hours (Table) 03/17/19 22:00 Blood Culture - Preliminary Blood No Growth after 24 hours 03/17/19 20:16 Blood Culture - Preliminary Blood No Growth after 24 hours 03/18/19 03:45 Gram Stain - Preliminary Sputum Sputum Culture - Preliminary Assessment and Plan Plan: Assessment: 1. Acute kidney injury secondary to ATN secondary to hypotension and hemodynamic instability. Creatinine peaked at 1.89 yesterday and is 1.87 today. Baseline creatinine near 1. No proteinuria on UA. 2. Bradycardia and complete heart block status post temporary transvenous pacemaker placement on admission. 3. Hypovolemic hyponatremia improved with IV hydration. 4. Lactic acidosis secondary to hypotension. Improved with IV hydration. 5. Hypotension currently off Levophed. Blood pressure is now on the higher side. Plan: Decreased rate of normal saline to 75 mL an hour. Continue to hold off on diuretics. Continue to monitor renal function and urine output.
[2019-03-19] MEDS ORDERED: FUROSEMIDE 10 MG/ML 4 ML VIAL IV STA (10:32)
--- NOTE | 2019-03-19 10:59 | P.PN ---
Subjective Progress Note Date: 03/19/19 Principal diagnosis: Complete heart block This is a 73-year-old white female patient with multiple comorbid conditions, with previous history of complete heart block requiring temporary pacemaker November 2018. Patient at that time clinically improved, and did not require placement of a permanent pacemaker. On patient was brought to the hospital by her daughter for weakness, lethargy, on the way to the hospital patient had a seizure. Does have underlying history of seizure disorder, currently on Keppra. Other medical history includes COPD/asthma, diabetes melli tus, chronic congestive heart failure, hypertension, osteoarthritis, sleep apnea, anxiety, depression, smoking history. Patient is on dexamethasone 4 history of a meningioma, or some type of a benign brain lesion, the details are not available to us. On arrival to the hospital she was found to be bradycardic with a heart rate in the 30s and the rhythm was a complete heart block. Dopamine was started however the right did not improve, she was symptomatic, was also hypotensive with systolic blood pressure ranging from 60s to 80s. Fluid challenge was given, 2-1/2 L of IV normal saline. She was taken to the analytical lab analyst, where a transvenous pacemaker was inserted via right groin, right femoral art line was inserted. Patient returned to the intensive care unit, on the 100% nonrebreather, however her respiratory status continued to decline, she was increasingly lethargic, blood gas showed pO2 of 56, pCO2 of 77, and pH of 7.25, and this was done and FiO2 of 40%, BiPAP support was initially attempted, however patient failed. Patient was intubated, placed on mechanical ventilator. This morning she seen in the intensive care unit, sedated and intubated on mechanical ventilator, and settings are assist-control mode with a rate of 20, tidal at 450, FiO2 of 40%, and PEEP of 5. This morning blood gases showed pO2 of 156, pCO2 of 37, pH is 7.47, on those settings. IV 0.9 normal saline at a rate of 20, Diprivan and is at 35 mics per kilo per minute, and levo fed is at 7 mics per minute. Dopamine had been discontinued as the patient had no response to it. She is currently being paced at a rate of 60 BPM transvenous pacemaker. It showed bibasilar infiltrates, suspected small bilateral pleural effusions, atelectasis along the minor fissure on the right, patient has a chronic elev ation of the left hemidiaphragm. This morning his blood work showed white blood cell count of 13.8, hemoglobin of 9.1, serum sodium is 134, potassium is 3.9, chloride is 99, CO2 was 26, B1 is 24, creatinine is 1.61, TSH was within normal limits at 1.470, lactic acid was 1.3 from 3.8. Blood cultures, urine culture, urine cultures have been sent. Emiliano antibiotic coverage in the form of Rocephin. On 03/19/2019 she is seen in follow-up in the intensive care unit, she remains sedated, intubated on mechanical ventilator, current vent settings are assist control mode of ventilation with a rate of 16, tidal vital 450, FiO2 35% and PEEP of 5. This morning blood gases were reviewed, and showed a pO2 of 107, pCO2 40, pH of 7.42, this was done and FiO2 of 35%, will drop down the FiO2 to 30%. Today's chest x-ray has been reviewed, and shows bibasilar atelectasis, and small pleural effusions, patient has been weaned off the levo fed drip, currently on Diprivan at 35 mics per kilo per minute, and 0.9 normal saline at a rate of 20 ML per hour, we'll give the patient of dose of IV Lasix 40 mg. Today's lab work has been reviewed, and showed a white blood cell count of 12.5, hemoglobin of 8.9, platelet count is 346, sodium is 135, potassium is 4.0, chloride is 103, renal profile is stable, B1 is 27, creatinine is 1.87. Urine output is 30-40 mL per hour. Blood and sputum cultures have been negative thus far. Intact tympanic coverage in the form of Rocephin, patient has had no fevers. She remains pacemaker dependent, and underlying rhythm is asystole, continues with the TVP in the right groin, and the pacing at a rate of 60 BPM. Objective - Vital Signs Vital signs: Vital Signs Temp 98.3 F 03/19/19 08:00 Pulse 60 03/19/19 10:00 Resp 16 03/19/19 10:00 BP 107/74 03/18/19 19:00 Pulse Ox 93 L 03/19/19 10:00 Intake & Output 03/18/19 03/19/19 03/19/19 18:59 06:59 18:59 Intake Total 2292.352 4081.596 507.089 Output Total 615 780 105 Balance 402.065 867.596 402.089 Weight 119.3 kg 119.3 kg Intake: IV 399 1356 379 0.9 TVP 260 240 60 IV Fluid Continuation 1, 980 160 000 ml @ 0 mls/hr IV .[facility] Rx#:[id number] Sodium Chloride 0.9% 1, 100 000 ml @ 100 mls/hr IV . Q10H [facility] Rx#:[id number] cefTRIAXone 1 gm In 50 Sodium Chloride 0.9% 50 ml @ 100 mls/hr IVPB Q24HR [facility] Rx#:[id number] levETIRAcetam IV 500 mg 100 100 In Sodium Chloride 0.9% 100 ml @ 400 mls/hr IVPB Q8HR [facility] Rx#:[id number] pressure bag 39 36 9 Intake, IV Titration 618.065 291.596 128.089 Amount Norepinephrine 4 mg In 283.278 44.959 28.089 Sodium Chloride 0.9% 250 ml @ 0.05 MCG/KG/MIN 22. 294 mls/hr IV .[id number] [facility] Rx#:[id number] Propofol 1,000 mg In 184.787 246.637 100 Empty Bag 1 bag @ Titrate IV .Q0M [facility] Rx#: [id number] cefTRIAXone 1 gm In 50 Sodium Chloride 0.9% 50 ml @ 100 mls/hr IVPB Q24HR [facility] Rx#:[id number] levETIRAcetam IV 500 mg 100 In Sodium Chloride 0.9% 100 ml @ 400 mls/hr IVPB Q8HR [facility] Rx#:[id number] Output: Gastric Drainage 100 Urine 615 680 105 Other: Voiding Method Indwelling Catheter Indwelling Catheter Indwelling Catheter ABP, PAP, CO, CI - Last Documented Arterial Blood Pressure 162/76 - Exam GENERAL EXAM: Obese 73-year-old white female, intubated on mechanical venti lator, sedated, comfortable in no apparent distress. HEAD: Normocephalic/atraumatic. EYES: Normal reaction of pupils, equal size. Conjunctiva pink, sclera white. NOSE: Clear with pink turbinates. THROAT: No erythema or exudates. NECK: No masses, no JVD, no thyroid enlargement, no adenopathy. CHEST: No chest wall deformity. Symmetrical expansion. LUNGS: Equal air entry with no crackles, wheeze, rhonchi or dullness. Diminished Breath sounds at the bases CVS: Regular rate and rhythm, normal S1 and S2, no gallops, no murmurs, no rubs ABDOMEN: Soft, nontender. No hepatosplenomegaly, normal bowel sounds, no guarding or rigidity. EXTREMITIES: No clubbing, no edema, no cyanosis, 2+ pulses and upper and lower extremities. MUSCULOSKELETAL: Muscle strength and tone normal. Right groin transvenous temporary pacemaker is in, patient is paced at a rate of 60 BPM. Femoral art line is in SPINE: No scoliosis or deformity SKIN: No rashes CENTRAL NERVOUS SYSTEM: Sedated. No focal deficits, tone is normal in all 4 extremities. - Labs CBC & Chem 7: 03/19/19 05:20 03/19/19 05:20 Labs: Abnormal Lab Results - Last 24 Hours (Table) 03/18/19 03/18/19 03/18/19 Range/Units 11:56 18:34 18:35 WBC (3.8-10.6) k/uL RBC (3.80-5.40) m/uL Hgb (11.4-16.0) gm/dL Hct (34.0-46.0) % Neutrophils # (1.3-7.7) k/uL Lymphocytes # (1.0-4.8) k/uL ABG HCO3 (21-25) mmol/L ABG Total CO2 (19-24) mmol/L ABG O2 Saturation (94-97) % Sodium 134 L (137-145) mmol/L BUN 26 H (7-17) mg/dL Creatinine 1.89 H (0.52-1.04) mg/dL Glucose 148 H (74-99) mg/dL POC Glucose (mg/dL) 143 H 175 H (75-99) mg/dL Calcium 7.7 L (8.4-10.2) mg/dL Phosphorus (2.5-4.5) mg/dL 03/19/19 03/19/19 03/19/19 Range/Units 00:33 05:20 05:20 WBC 12.5 H (3.8-10.6) k/uL RBC 3.03 L (3.80-5.40) m/uL Hgb 8.9 L (11.4-16.0) gm/dL Hct 27.4 L (34.0-46.0) % Neutrophils # 11.7 H (1.3-7.7) k/uL Lymphocytes # 0.3 L (1.0-4.8) k/uL ABG HCO3 (21-25) mmol/L ABG Total CO2 (19-24) mmol/L ABG O2 Saturation (94-97) % Sodium 135 L (137-145) mmol/L BUN 27 H (7-17) mg/dL Creatinine 1.87 H (0.52-1.04) mg/dL Glucose 172 H (74-99) mg/dL POC Glucose (mg/dL) 140 H (75-99) mg/dL Calcium 8.0 L (8.4-10.2) mg/dL Phosphorus 4.6 H (2.5-4.5) mg/dL 03/19/19 03/19/19 Range/Units 06:45 06:51 WBC (3.8-10.6) k/uL RBC (3.80-5.40) m/uL Hgb (11.4-16.0) gm/dL Hct (34.0-46.0) % Neutrophils # (1.3-7.7) k/uL Lymphocytes # (1.0-4.8) k/uL ABG HCO3 26 H (21-25) mmol/L ABG Total CO2 28 H (19-24) mmol/L ABG O2 Saturation 98.0 H (94-97) % Sodium (137-145) mmol/L BUN (7-17) mg/dL Creatinine (0.52-1.04) mg/dL Glucose (74-99) mg/dL POC Glucose (mg/dL) 170 H (75-99) mg/dL Calcium (8.4-10.2) mg/dL Phosphorus (2.5-4.5) mg/dL Microbiology - Last 24 Hours (Table) 03/17/19 22:00 Blood Culture - Preliminary Blood No Growth after 24 hours 03/17/19 20:16 Blood Culture - Preliminary Blood No Growth after 24 hours 03/18/19 03:45 Gram Stain - Preliminary Sputum Sputum Culture - Preliminary Assessment and Plan Plan: Assessment: #1. Acute hypoxemic and hypercapnic respiratory failure related to hypoventilation. Chest x-ray showed bibasilar infiltrates, small bilateral pleural effusions. #2. Third-degree heart block, symptomatic bradycardia, status post transvenous pacemaker placement #3. Breakthrough seizures, despite Keppra #4. Mild lactic acidosis, possibly related to hypotension related to bradycardia and complete heart block, rule out sepsis, cultures are pending, patient is covered with empiric antibiotic coverage. Improved with hydration #5. Acute kidney injury secondary to ATN #6. Hypotension related to bradycardia, improved, ration has been weaned off vasopressor support as off 03/19/2019 #7. History of COPD, with a baseline FEV1 of 65% of predicted, patient has a component of restrictive and obstructive pulmonary defect. #8. Previous episode of complete heart block in November 2018 which was transient, resolved on its own, and patient did not require placement of a permanent pacemaker, requiring just a temporary transvenous pacemaker. Heart catheterization was performed at that time on 11/25/2018 revealing normal coronary arteries. Last echocardiogram showed preserved left ventricular systolic function with an EF of 50-55%, mild aortic stenosis with peak/mean gradient across the aortic valve of 19.9 mmHg/10.5 mmHg, no evidence of pulmonary hypertension, there was mild tricuspid regurgitation #9. Elevated d-dimer, nonspecific #10. Morbid obesity #11. Former nicotine dependence history Plan: The FiO2 down to 30%, continue with the same ventilator settings, vasopressor support has been off, we will give the patient a dose of IV Lasix, proceed with the daily traction of sedation, assessment patient, May attempt spontaneous breathing trials, we spoke to the cardiology regarding the timing of the permanent pacemaker placement. May leave the patient intubated for the procedure if it is done in the next 24 hours. Otherwise we will proceed with weaning and extubation. If patient remains intubated for any reason today we'll start tube feedings. Cultures are negative thus far, will continue with empiric antibiotic coverage, no fever, rrenal profile is stable. GI/DVT prophylaxis I performed a history & physical examination of the patient and discussed their management with my nurse practitioner, Maggie Morin. I reviewed the nurse practitioner's note and agree with the documented findings and plan of care. Lung sounds are positive for breast sounds. The findings and the impression was discussed with the patient. I attest to the documentation by the nurse practitioner. Time with Patient: Greater than 30
[2019-03-19] MEDS: FOLIC ACID 1 MG TAB PO SCH (11:45)
[2019-03-19 11:56] LABS: Glucose,Whole Blood 153 mg/dL (75-99)
--- NOTE | 2019-03-19 13:35 | P.PN ---
Subjective Progress Note Date: 03/19/19 This is a 73-year-old female patient of Dr. Loomis. Patient presented to the ER with complaints of unresponsiveness possible seizure per daughter. Per ER report patient was in the car with her daughter when she had a seizure episode lasting approximately 3 minutes. Patient then came to inpatient was brought to the ER. It is noted patient was bradycardic. 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 Patient was here recently and treated for acute COPD exacerbation. Patient had a prolonged admission in December in which she had a previous pacer placed at that time. EKG showing a complete heart block with a rate 29. Patient was taken to the cardiac Propeller Tester history of 03/17/2019 and temporary venous pacer was placed at that time. Upon returning to the ICU patient went into respiratory distress and required intubation. Patient is also currently on pressure support medication. Patient's creatinine 1.61 and bun 24. Patient has had very little urine output. Patient has been given a total of 120 of Lasix. Critical care management are following. Patient currently has TVP in place. Patient remains in the intensive care unit. On 03/19/2019 patient remains on mechanical ventilation in the intensive care unit. Patient remains on small dose of Levophed. Per nursing staff patient is asystole under TVP. EEG has been ordered. Head CT completed showing no acute process. Keppra has been ordered. Patient currently on Keppra 500 3 times a day. Critical care cardiology and nephrology services are following. Patient's urine output has improved. Objective - Vital Signs Vital signs: Vital Signs Temp 98.2 F 03/19/19 12:00 Pulse 60 03/19/19 13:00 Resp 16 03/19/19 13:00 BP 107/74 03/18/19 19:00 Pulse Ox 91 L 03/19/19 13:00 Intake & Output 03/18/19 03/19/19 03/19/19 18:59 06:59 18:59 Intake Total 7321.557 6912.596 769.404 Output Total 615 780 575 Balance 402.065 867.596 194.404 Weight 119.3 kg 119.3 kg Intake: IV 399 1356 613 0.9 TVP 260 240 120 IV Fluid Continuation 1, 980 325 000 ml @ 0 mls/hr IV .[facility] Rx#:[id number] Sodium Chloride 0.9% 1, 100 000 ml @ 100 mls/hr IV . Q10H [facility] Rx#:[id number] cefTRIAXone 1 gm In 50 Sodium Chloride 0.9% 50 ml @ 100 mls/hr IVPB Q24HR [facility] Rx#:[id number] levETIRAcetam IV 500 mg 100 100 In Sodium Chloride 0.9% 100 ml @ 400 mls/hr IVPB Q8HR [facility] Rx#:[id number] pressure bag 39 36 18 Intake, IV Titration 618.065 291.596 156.404 Amount Norepinephrine 4 mg In 283.278 44.959 28.089 Sodium Chloride 0.9% 250 ml @ 0.05 MCG/KG/MIN 22. 294 mls/hr IV .[id number] [facility] Rx#:[id number] Propofol 1,000 mg In 184.787 246.637 128.315 Empty Bag 1 bag @ Titrate IV .Q0M [facility] Rx#: [id number] cefTRIAXone 1 gm In 50 Sodium Chloride 0.9% 50 ml @ 100 mls/hr IVPB Q24HR [facility] Rx#:[id number] levETIRAcetam IV 500 mg 100 In Sodium Chloride 0.9% 100 ml @ 400 mls/hr IVPB Q8HR [facility] Rx#:[id number] Output: Gastric Drainage 100 Urine 615 680 575 Other: Voiding Method Indwelling Catheter Indwelling Catheter Indwelling Catheter ABP, PAP, CO, CI - Last Documented Arterial Blood Pressure 150/73 - Exam Head normocephalic Neck supple Lungs mechinally ventilated. Diminished bilaterally Heart regular rate and rhythm S1-S2, no rub or gallop Abdomen is soft nontender nondistended positive bowel sounds no hepatosplenomegaly Extremities no edema Neuro sedated - Labs CBC & Chem 7: 03/19/19 05:20 03/19/19 05:20 Labs: Abnormal Lab Results - Last 24 Hours (Table) 03/18/19 03/18/19 03/19/19 Range/Units 18:34 18:35 00:33 WBC (3.8-10.6) k/uL RBC (3.80-5.40) m/uL Hgb (11.4-16.0) gm/dL Hct (34.0-46.0) % Neutrophils # (1.3-7.7) k/uL Lymphocytes # (1.0-4.8) k/uL ABG HCO3 (21-25) mmol/L ABG Total CO2 (19-24) mmol/L ABG O2 Saturation (94-97) % Sodium 134 L (137-145) mmol/L BUN 26 H (7-17) mg/dL Creatinine 1.89 H (0.52-1.04) mg/dL Glucose 148 H (74-99) mg/dL POC Glucose (mg/dL) 175 H 140 H (75-99) mg/dL Calcium 7.7 L (8.4-10.2) mg/dL Phosphorus (2.5-4.5) mg/dL 03/19/19 03/19/19 03/19/19 Range/Units 05:20 05:20 06:45 WBC 12.5 H (3.8-10.6) k/uL RBC 3.03 L (3.80-5.40) m/uL Hgb 8.9 L (11.4-16.0) gm/dL Hct 27.4 L (34.0-46.0) % Neutrophils # 11.7 H (1.3-7.7) k/uL Lymphocytes # 0.3 L (1.0-4.8) k/uL ABG HCO3 (21-25) mmol/L ABG Total CO2 (19-24) mmol/L ABG O2 Saturation (94-97) % Sodium 135 L (137-145) mmol/L BUN 27 H (7-17) mg/dL Creatinine 1.87 H (0.52-1.04) mg/dL Glucose 172 H (74-99) mg/dL POC Glucose (mg/dL) 170 H (75-99) mg/dL Calcium 8.0 L (8.4-10.2) mg/dL Phosphorus 4.6 H (2.5-4.5) mg/dL 03/19/19 03/19/19 Range/Units 06:51 11:45 WBC (3.8-10.6) k/uL RBC (3.80-5.40) m/uL Hgb (11.4-16.0) gm/dL Hct (34.0-46.0) % Neutrophils # (1.3-7.7) k/uL Lymphocytes # (1.0-4.8) k/uL ABG HCO3 26 H (21-25) mmol/L ABG Total CO2 28 H (19-24) mmol/L ABG O2 Saturation 98.0 H (94-97) % Sodium (137-145) mmol/L BUN (7-17) mg/dL Creatinine (0.52-1.04) mg/dL Glucose (74-99) mg/dL POC Glucose (mg/dL) 153 H (75-99) mg/dL Calcium (8.4-10.2) mg/dL Phosphorus (2.5-4.5) mg/dL Microbiology - Last 24 Hours (Table) 03/17/19 22:00 Blood Culture - Preliminary Blood No Growth after 24 hours 03/17/19 20:16 Blood Culture - Preliminary Blood No Growth after 24 hours 03/18/19 03:45 Gram Stain - Preliminary Sputum Sputum Culture - Preliminary Assessment and Plan Assessment: 1. Third-degree heart block, symptomatic bradycardic. Patient has a transvenous pacemaker placement per cardiology. Cardiology services following. Patient asystole under transvenous pacemaker. Possible pacemaker placement 2. Acute hypoxic and hypercapnic respiratory failure requiring mechanical ventilation. Pulmonary critical care service is following. 3. Possible Seizures. Patient is maintained on Keppra. Keppra level has been ordered. Keppra has been increased to 500 IV 3 times a day. EEG ordered. Head CT completed showing no definitive acute process. 4. Acute kidney injury secondary to ATN secondary to hypotension hemodynamically instability. Nephrology services are following. Patient received 120 of Lasix. Urine output has improved. Nephrology services are following 5. Hypotension related to hypotension. Patient is maintained on Levophed for pressure support at this time 6. Urinary tract infection. UA positive for leukocyte esterase. Urine culture ordered. Patient currently maintained on Rocephin 7. History of COPD. 8. Previous episode of complete heart block in November 2018 which was transient. Patient did have TVP at that time. 9. Underlying history of seizure disorder which she is maintained on Keppra 10. History of depression and anxiety 11. History of obstructive sleep apnea 12. History of chronic cor pulmonale 13. History of brain meningioma. Maintained on dexamethasone 14. Lactic acidosis. Initial lactic acid 3.8. Repeat 1.3. Patient positive for UTI. Patient currently maintained on Rocephin DVT prophylaxis Lovenox. GI prophylaxis Protonix Critical care, cardiology and nephrology services following I performed an examination of the patient and discussed their management with the Nurse Practitioner. I have reviewed the Nurse Practitioner's notes and agree with the documented findings and plan of care
[2019-03-19] MEDS ORDERED: SODIUM CHLORIDE 0.9% 1,000 ML IV SCH (13:45)
[2019-03-19] MEDS: SODIUM CHLORIDE 0.9% 1,000 ML IV SCH (14:50)
--- NOTE | 2019-03-19 18:29 | PN ---
PROGRESS NOTE Isabel is a 73-year-old lady with complex and multiple medical problems who presented to hospital with complete heart block, hypotension and developed respiratory failure and renal failure secondary to hypoperfusion. She has a temporary transvenous pacemaker is functioning normally. She is still being paced. Does not have any significant underlying rhythm. She is alert, awake, receiving antibiotics and nebulizers. Blood cultures have been negative. EXAM: Heart rate is 60 beats per minute. Blood pressure is 108/74. She is mechanically ventilated. Chest exam reveals diminished air entry at the bases. Heart exam reveals first and second heart sounds. No gallop. ABDOMEN: Soft. Exam of extremities reveals 1+ edema. Peripheral pulses are felt. LABS: Show that the white cell count is 12.5, which is coming down. Hemoglobin is 8.9, platelet count is 346, BUN is 27, creatinine is 1.87. ASSESSMENT: Complete heart block status post temporary transvenous pacemaker. PLAN: Patient will need and would benefit from a permanent pacemaker. This will be done tomorrow. Will leave the patient intubated and on vent till tomorrow. The temporary pacemaker has been evaluated and is functioning normally. MMODL / IJN: [id number] /
[2019-03-19 18:31] LABS: Glucose,Whole Blood 141 mg/dL (75-99)
[2019-03-20] MEDS: levETIRAcetam IV 500 MG in SODIUM CHLORIDE 0.9% 100 ML IVPB SCH ×3 (01:07→15:38)
[2019-03-20] MEDS: INSULIN ASPART (NovoLOG) 100 UNIT/ML VIAL SQ SCH ×4 (01:08→18:54)
[2019-03-20] MEDS: PROPOFOL 1,000 MG in EMPTY BAG 1 BAG IV SCH ×7 (01:09→21:05)
[2019-03-20 01:16] LABS: Glucose,Whole Blood 160 mg/dL (75-99)
[2019-03-20] MEDS: IPRATROPIUM-ALBUTEROL 3 ML NEB INHALATION SCH ×6 (02:56→23:43)
[2019-03-20 04:21] LABS: Basophils % (A) 0 %; Eosinophils # (A) 0.1 k/uL (0-0.7); Eosinophils % (A) 1 %; HCT 26.5 % (34.0-46.0); HGB 8.5 gm/dL (11.4-16.0); Lymphocytes # (A) 0.6 k/uL (1.0-4.8); Lymphocytes % (A) 5 %; MCH 29.2 pg (25.0-35.0); MCHC 32.1 g/dL (31.0-37.0); MCV 90.8 fL (80.0-100.0); Mean Platelet Volume 7.6; Monocytes # (A) 0.6 k/uL (0-1.0); Monocytes % (A) 5 %; Neutrophils # (A) 10.3 k/uL (1.3-7.7); Neutrophils % (A) 88 %; Platelet Count 331 k/uL (150-450); RBC 2.92 m/uL (3.80-5.40); RDW 14.8 % (11.5-15.5); WBC 11.8 k/uL (3.8-10.6)
[2019-03-20 04:39] LABS: Albumin 2.9 g/dL (3.5-5.0); Calcium 8.1 mg/dL (8.4-10.2); Total Bilirubin 0.3 mg/dL (0.2-1.3); Total Protein 5.3 g/dL (6.3-8.2)
[2019-03-20] MEDS ORDERED: NITROGLYCERIN OINT 1 INCH/GM PACKET TOPICAL STA (05:22)
[2019-03-20 06:06] LABS: Glucose,Whole Blood 127 mg/dL (75-99)
[2019-03-20] MEDS ORDERED: CLINDAMYCIN 900 MG in DEXTROSE 5% IN WATER 50 ML IVPB ONE ×2 (07:00)
[2019-03-20] MEDS ORDERED: CLINDAMYCIN 600 MG in SODIUM CHLORIDE 0.9% IRRIGATIO 250 ML IRRIGATION ONE (07:00)
[2019-03-20 07:03] LABS: ABG Base Excess 1.4 mmol/L; ABG HCO3 26 mmol/L (21-25); ABG Oxygen Saturation 96.9 % (94-97); ABG PCO2 41 mmHg (35-45); ABG PH 7.41 (7.35-7.45); ABG PO2 91 mmHg (83-108); ABG TCO2 27 mmol/L (19-24)
[2019-03-20] MEDS ORDERED: IOPAMIDOL-250 50ML BTL IV ONE (07:50)
[2019-03-20] MEDS ORDERED: IV FLUID CONTINUATION 100 ML IV ONE (08:00)
[2019-03-20] MEDS ORDERED: IV FLUID CONTINUATION 975 ML IV ONE (08:00)
--- NOTE | 2019-03-20 08:02 | XR ---
EXAMINATION TYPE: XR chest 1V portable DATE OF EXAM: 03/20/2019 COMPARISON: 03/19/2019 HISTORY: Endotracheal tube placement TECHNIQUE: Single frontal view of the chest is obtained. FINDINGS: Endotracheal tube and enteric tube appear appropriately placed. Bilateral layering pleural effusions are redemonstrated, right greater than left with associated bibasilar airspace disease. No pulmonary vascular congestion. Cardiomediastinal silhouette is enlarged. Old fracture deformities ar e seen of the left ribs. IMPRESSION: Similar-appearing small left and trace right pleural effusions with bibasilar airspace d isease, likely atelectasis.
[2019-03-20] MEDS ORDERED: LIDOCAINE 1% INJ 10MG/ML (20 ML MDV) ONE (08:34)
[2019-03-20] MEDS ORDERED: hydrALAZINE HCL 20 MG/ML 1 ML VIAL ONE (08:39)
[2019-03-20] MEDS ORDERED: hydrALAZINE HCL 20 MG/ML 1 ML VIAL IV ONE (08:44)
[2019-03-20] MEDS ORDERED: LIDOCAINE 1% INJ 10MG/ML (20 ML MDV) SQ ONE (08:44)
[2019-03-20] MEDS ORDERED: fentaNYL (PF) 50 MCG/ML 2 ML AMP ONE (08:50)
[2019-03-20] MEDS: fentaNYL (PF) 50 MCG/ML 2 ML AMP IVP ONE ×2 (08:51→09:29)
[2019-03-20] MEDS: MIDAZOLAM (PF) 2 MG/2 ML VIAL IVP ONE ×2 (09:09→09:42)
--- NOTE | 2019-03-20 10:07 | P.PCN ---
Date of Procedure: 03/20/19 Preoperative Diagnosis: Intermittent high degree AV block with AV dissociation and severe bradycardia associated with hypotension. Postoperative Diagnosis: The same Procedure(s) Performed: Dual-chamber permanent pacemaker implantation Description of Procedure: HISTORY: This is a 73-year-old female with history of recurrent admissions with the evidence of high degree AV block with AV dissociation and severe bradycardia. Patient also developed respiratory failure and renal failure requiring intubation. Her renal functions improved. Her AV dissociation is also improved after 48 hours. Cultures have been negative. No signs of any infection. Because of recurrent episodes of AV block with significant hemodynamic instability, patient is advised to have permanent pacemaker implantation. CONSENT:I have discussed the risks, benefits and alternative therapies for the above-mentioned procedure and for both sedation/analgesia as well as necessary blood product administration, if indicated, as they pertain to this patient. The patient has indicated understanding and acceptance of the risks and procedures discussed. PROCEDURE: Patient was brought to the lab in a fasting state. Patient was prepped and draped in the usual fashion. Patient is already intubated and on propofol. Patient was given IV sedation with fentanyl and Versed. The skin below the left clavicle was infiltrated with lidocaine. An incision was made parallel to deltopectoral groove was deepened until the pectoral fascia was exposed. A pocket was created by blunt dissection and cautery. Axillary venography was performed to delineate the course of the axillary vein. 2 sticks were performed into extrathoracic portion of the axillary vein and 2 sheaths were advanced over the guidewires and left in subclavian vein. Conscious Sedation: Versed 2mg Fentanyl 100 g Duration 78 minutes LEADS: ATRIAL: This is manufactured by [employer]. Model number is [id number]. Length is 52 cm. Serial number is [id number]. VENTRICULAR: This is manufactured by [employer]. Model number is [id number]. Serial number is [id number]. The ventricular lead is maneuvered l with help of a straight and curved stylets into the left ventricle apical region. Satisfactory position was obtained and threshold measurements were made. The atrial lead was then maneuvered into the right atrial appendage. And thresholds were obtained. THRESHOLDS: ATRIUM: The minimal pacing threshold is 1 moderate pulse width of 0.5 and impedance is 622 P-wave: 4.2 VENTRICLE: The minimum patient threshold is 0.4 at pulse width of 0.5. The impedance is 1350 R-wave: 6 The leads and pulse generator remained in the pocket after it was washed with antibiotics. Pocket was closed in the usual fashion. The fascia was closed with 2-0 Prolene ,the subcutaneous tissue was closed with 3-0 Prolene and the skin was closed with 4-0 Prolene. PROGRAMMING: MODE: DDD RATE: 60-130 OUTPUT: Atrium : 3.5 Ventricle: 3.5 V FINAL IMPRESSION: #1 axillary venography #2. Insertion of the dual-chamber pacemaker #3. Removal of temporary pacemaker under fluoroscopy. COMPLICATIONS: none PLAN: patient will be monitored on the telemetry unit. Prophylactic antibiotics to be continued.
[2019-03-20] MEDS ORDERED: CISATRACURIUM 2 MG/ML 5 ML VIAL IV ONE (10:38)
--- NOTE | 2019-03-20 10:42 | P.PN ---
Subjective Progress Note Date: 03/20/19 This is a 73-year-old female patient of Dr. Loomis. Patient presented to the ER with complaints of unresponsiveness possible seizure per daughter. Per ER report patient was in the car with her daughter when she had a seizure episode lasting approximately 3 minutes. Patient then came to inpatient was brought to the ER. It is noted patient was bradycardic. 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 Patient was here recently and treated for acute COPD exacerbation. Patient had a prolonged admission in December in which she had a previous pacer placed at that time. EKG showing a complete heart block with a rate 29. Patient was taken to the cardiac Journeyman Operator Assistant history of 03/17/2019 and temporary venous pacer was placed at that time. Upon returning to the ICU patient went into respiratory distress and required intubation. Patient is also currently on pressure support medication. Patient's creatinine 1.61 and bun 24. Patient has had very little urine output. Patient has been given a total of 120 of Lasix. Critical care management are following. Patient currently has TVP in place. Patient remains in the intensive care unit. On 03/19/2019 patient remains on mechanical ventilation in the intensive care unit. Patient remains on small dose of Levophed. Per nursing staff patient is asystole under TVP. EEG has been ordered. Head CT completed showing no acute process. Keppra has been ordered. Patient currently on Keppra 500 3 times a day. Critical care cardiology and nephrology services are following. Patient's urine output has improved. 03/20/2018 patient is status post dual-chamber pacemaker placement. Patient remains on mechanical ventilation and sedation at this time. Patient has been off pressure support medication per 24 hours. Urine output has improved. Cr eatinine is trending down. Keppra level is therapeutic at 39.8 Objective - Vital Signs Vital signs: Vital Signs Temp 98.6 F 03/20/19 00:00 Pulse 85 03/20/19 07:00 Resp 16 03/20/19 07:00 BP 107/74 03/20/19 06:30 Pulse Ox 95 03/20/19 07:00 Intake & Output 03/19/19 03/20/19 03/20/19 18:59 06:59 18:59 Intake Total 6125.355 9171 209 Output Total 1008 480 60 Balance 491.402 628 149 Weight 119.3 kg Intake: IV 1123 858 209 0.9 TVP 240 220 20 IV Fluid Continuation 1, 600 605 55 000 ml @ 0 mls/hr IV .STK -[facility] Rx#:[id number] cefTRIAXone 1 gm In 50 Sodium Chloride 0.9% 50 ml @ 100 mls/hr IVPB Q24HR [facility] Rx#:[id number] levETIRAcetam IV 500 mg 200 In Sodium Chloride 0.9% 100 ml @ 400 mls/hr IVPB Q8HR [facility] Rx#:[id number] pressure bag 33 33 3 Intake, IV Titration 296.402 200 Amount Norepinephrine 4 mg In 28.089 Sodium Chloride 0.9% 250 ml @ 0.05 MCG/KG/MIN 22. 294 mls/hr IV .[id number] [facility] Rx#:[id number] Propofol 1,000 mg In 268.313 200 Empty Bag 1 bag @ Titrate IV .Q0M [facility] Rx#: [id number] Tube Feeding 80 20 Other 30 Output: Urine 1008 480 60 Other: Voiding Method Indwelling Catheter Indwelling Catheter ABP, PAP, CO, CI - Last Documented Arterial Blood Pressure 176/85 - Exam Head normocephalic Neck supple Lungs mechinally ventilated. Diminished bilaterally Heart regular rate and rhythm S1-S2, no rub or gallop Abdomen is soft nontender nondistended positive bowel sounds no hepatosplenomegaly Extremities no edema Neuro sedated - Labs CBC & Chem 7: 03/20/19 04:08 03/20/19 04:08 Labs: Abnormal Lab Results - Last 24 Hours (Table) 03/19/19 03/19/19 03/20/19 Range/Units 11:45 18:20 01:04 WBC (3.8-10.6) k/uL RBC (3.80-5.40) m/uL Hgb (11.4-16.0) gm/dL Hct (34.0-46.0) % Neutrophils # (1.3-7.7) k/uL Lymphocytes # (1.0-4.8) k/uL ABG HCO3 (21-25) mmol/L ABG Total CO2 (19-24) mmol/L BUN (7-17) mg/dL Creatinine (0.52-1.04) mg/dL Glucose (74-99) mg/dL POC Glucose (mg/dL) 153 H 141 H 160 H (75-99) mg/dL Calcium (8.4-10.2) mg/dL Total Protein (6.3-8.2) g/dL Albumin (3.5-5.0) g/dL 03/20/19 03/20/19 03/20/19 Range/Units 04:08 04:08 05:55 WBC 11.8 H (3.8-10.6) k/uL RBC 2.92 L (3.80-5.40) m/uL Hgb 8.5 L (11.4-16.0) gm/dL Hct 26.5 L (34.0-46.0) % Neutrophils # 10.3 H (1.3-7.7) k/uL Lymphocytes # 0.6 L (1.0-4.8) k/uL ABG HCO3 (21-25) mmol/L ABG Total CO2 (19-24) mmol/L BUN 30 H (7-17) mg/dL Creatinine 1.59 H (0.52-1.04) mg/dL Glucose 139 H (74-99) mg/dL POC Glucose (mg/dL) 127 H (75-99) mg/dL Calcium 8.1 L (8.4-10.2) mg/dL Total Protein 5.3 L (6.3-8.2) g/dL Albumin 2.9 L (3.5-5.0) g/dL 03/20/19 Range/Units 06:58 WBC (3.8-10.6) k/uL RBC (3.80-5.40) m/uL Hgb (11.4-16.0) gm/dL Hct (34.0-46.0) % Neutrophils # (1.3-7.7) k/uL Lymphocytes # (1.0-4.8) k/uL ABG HCO3 26 H (21-25) mmol/L ABG Total CO2 27 H (19-24) mmol/L BUN (7-17) mg/dL Creatinine (0.52-1.04) mg/dL Glucose (74-99) mg/dL POC Glucose (mg/dL) (75-99) mg/dL Calcium (8.4-10.2) mg/dL Total Protein (6.3-8.2) g/dL Albumin (3.5-5.0) g/dL Microbiology - Last 24 Hours (Table) 03/18/19 03:45 Gram Stain - Final Sputum Sputum Culture - Final 03/17/19 22:00 Blood Culture - Preliminary Blood No Growth after 48 hours 03/17/19 20:16 Blood Culture - Preliminary Blood No Growth after 48 hours Assessment and Plan Assessment: 1. Third-degree heart block, symptomatic bradycardic. Patient has a transvenous pacemaker placement per cardiology. Cardiology services following. Patient asystole under transvenous pacemaker. Status post pacemaker placement 2. Acute hypoxic and hypercapnic respiratory failure requiring mechanical ventilation. Pulmonary critical care service is following. 3. Possible Seizures. Patient is maintained on Keppra. Keppra has been increased to 500 IV 3 times a day. Head CT completed showing no definitive acute process. Keppra level 39.8. 4. Acute kidney injury secondary to ATN secondary to hypotension hemodynamically instability. Nephrology services are following. Patient received 120 of Lasix. Urine output has improved. Creatinine is improving to 1.59 5. Hypotension related to hypotension. Patient is maintained on Levophed for pressure support at this time. Patient has been off Levophed for 24 hours 6. Urinary tract infection. UA positive for leukocyte esterase. Urine culture ordered. Patient currently maintained on Rocephin 7. History of COPD. 8. Previous episode of complete heart block in November 2018 which was transient 9. Underlying history of seizure disorder which she is maintained on Keppra. EEG completed. Results pending Keppra level 39.8 10. History of depression and anxiety 11. History of obstructive sleep apnea 12. History of chronic cor pulmonale 13. History of brain meningioma. Maintained on dexamethasone 14. Lactic acidosis. Initial lactic acid 3.8. Repeat 1.3. Patient positive for UTI. Patient currently maintained on Rocephin DVT prophylaxis Lovenox. GI prophylaxis Protonix Critical care, cardiology and nephrology services following I performed an examination of the patient and discussed their management with the Nurse Practitioner. I have reviewed the Nurse Practitioner's notes and agree with the documented findings and plan of care
[2019-03-20] MEDS: DULoxetine HCL 30 MG CAPSULE.DR PO SCH (10:44)
[2019-03-20] MEDS: CHLORHEXIDINE GLUCONATE 15 ML CUP MUCOUS MEM SCH ×2 (10:52→21:49)
[2019-03-20] MEDS: DEXAMETHASONE SOD PHOSPHATE 4 MG/ML 1 ML VIAL IV SCH ×2 (10:52→21:49)
[2019-03-20] MEDS: MONTELUKAST 10 MG TAB PO SCH (10:53)
[2019-03-20] MEDS: PANTOPRAZOLE 40 MG/10 ML VIAL IVP SCH (10:53)
[2019-03-20] MEDS: ENOXAPARIN 40 MG/0.4 ML SYRINGE SQ SCH (10:53)
[2019-03-20] MEDS: NOREPINEPHRINE 4 MG in SODIUM CHLORIDE 0.9% 250 ML IV SCH (11:19)
[2019-03-20] MEDS: SODIUM CHLORIDE 0.9% 1,000 ML IV SCH (11:20)
[2019-03-20 11:46] LABS: Glucose,Whole Blood 140 mg/dL (75-99)
[2019-03-20] MEDS: FOLIC ACID 1 MG TAB PO SCH (11:59)
--- NOTE | 2019-03-20 13:02 | P.PN ---
Subjective Patient is seen in follow-up for acute kidney injury. Her baseline creatinine is 1. It peaked at 1.89 this admission and is down to 1.59 this morning. She is currently maintained on normal saline at 75 mL an hour. Urine output is 30- 50 mL an hour. Levophed was discontinued yesterday morning. She is currently intubated and sedated. She has a transvenous pacer was placed on admission due to complete heart block and had a permanent pacemaker placed this morning. Echocardiogram revealed ejection fraction of 45-50%. She will be starting on tube feeding today. She also received 1 dose of Lasix 40 mg IV yesterday due to low urine output and did respond. Vital signs are stable. General: The patient appeared well nourished and normally developed. Intubated. HEENT: Head exam is unremarkable. Neck is without jugular venous distension. LUNGS: Breath sounds decreased. HEART: Rate and Rhythm are regular. First and second heart sounds normal. No murmurs, rubs or gallops. ABDOMEN: Abdominal exam reveals normal bowel sounds. Non-tender and non- distended. No evidence of peritonitis. EXTREMITITES: Trace edema. Objective - Vital Signs Vital signs: Vital Signs Temp 98.1 F 03/20/19 12:00 Pulse 81 03/20/19 12:00 Resp 16 03/20/19 12:00 BP 107/74 03/20/19 06:30 Pulse Ox 98 03/20/19 12:00 Intake & Output 03/19/19 03/20/19 03/20/19 18:59 06:59 18:59 Intake Total 2361.800 7304 709 Output Total 1008 480 310 Balance 491.402 628 399 Weight 119.3 kg 119.3 kg Intake: IV 1123 858 609 0.9 TVP 240 220 220 IV Fluid Continuation 1, 600 605 55 000 ml @ 0 mls/hr IV .STK -[facility] Rx#:[id number] cefTRIAXone 1 gm In 50 100 Sodium Chloride 0.9% 50 ml @ 100 mls/hr IVPB Q24HR [facility] Rx#:[id number] levETIRAcetam IV 500 mg 200 100 In Sodium Chloride 0.9% 100 ml @ 400 mls/hr IVPB Q8HR [facility] Rx#:[id number] pressure bag 33 33 3 Intake, IV Titration 296.402 200 100 Amount Norepinephrine 4 mg In 28.089 Sodium Chloride 0.9% 250 ml @ 0.05 MCG/KG/MIN 22. 294 mls/hr IV .[id number] [facility] Rx#:[id number] Propofol 1,000 mg In 268.313 200 100 Empty Bag 1 bag @ Titrate IV .Q0M [facility] Rx#: [id number] Tube Feeding 80 20 Other 30 Output: Urine 1008 480 310 Other: Voiding Method Indwelling Catheter Indwelling Catheter Indwelling Catheter ABP, PAP, CO, CI - Last Documented Arterial Blood Pressure 120/60 - Labs CBC & Chem 7: 03/20/19 04:08 03/20/19 04:08 Labs: Abnormal Lab Results - Last 24 Hours (Table) 03/19/19 03/20/19 03/20/19 Range/Units 18:20 01:04 04:08 WBC 11.8 H (3.8-10.6) k/uL RBC 2.92 L (3.80-5.40) m/uL Hgb 8.5 L (11.4-16.0) gm/dL Hct 26.5 L (34.0-46.0) % Neutrophils # 10.3 H (1.3-7.7) k/uL Lymphocytes # 0.6 L (1.0-4.8) k/uL ABG HCO3 (21-25) mmol/L ABG Total CO2 (19-24) mmol/L BUN (7-17) mg/dL Creatinine (0.52-1.04) mg/dL Glucose (74-99) mg/dL POC Glucose (mg/dL) 141 H 160 H (75-99) mg/dL Calcium (8.4-10.2) mg/dL Total Protein (6.3-8.2) g/dL Albumin (3.5-5.0) g/dL 03/20/19 03/20/19 03/20/19 Range/Units 04:08 05:55 06:58 WBC (3.8-10.6) k/uL RBC (3.80-5.40) m/uL Hgb (11.4-16.0) gm/dL Hct (34.0-46.0) % Neutrophils # (1.3-7.7) k/uL Lymphocytes # (1.0-4.8) k/uL ABG HCO3 26 H (21-25) mmol/L ABG Total CO2 27 H (19-24) mmol/L BUN 30 H (7-17) mg/dL Creatinine 1.59 H (0.52-1.04) mg/dL Glucose 139 H (74-99) mg/dL POC Glucose (mg/dL) 127 H (75-99) mg/dL Calcium 8.1 L (8.4-10.2) mg/dL Total Protein 5.3 L (6.3-8.2) g/dL Albumin 2.9 L (3.5-5.0) g/dL 03/20/19 Range/Units 11:33 WBC (3.8-10.6) k/uL RBC (3.80-5.40) m/uL Hgb (11.4-16.0) gm/dL Hct (34.0-46.0) % Neutrophils # (1.3-7.7) k/uL Lymphocytes # (1.0-4.8) k/uL ABG HCO3 (21-25) mmol/L ABG Total CO2 (19-24) mmol/L BUN (7-17) mg/dL Creatinine (0.52-1.04) mg/dL Glucose (74-99) mg/dL POC Glucose (mg/dL) 140 H (75-99) mg/dL Calcium (8.4-10.2) mg/dL Total Protein (6.3-8.2) g/dL Albumin (3.5-5.0) g/dL Microbiology - Last 24 Hours (Table) 03/18/19 03:45 Gram Stain - Final Sputum Sputum Culture - Final 03/17/19 22:00 Blood Culture - Preliminary Blood No Growth after 48 hours 03/17/19 20:16 Blood Culture - Preliminary Blood No Growth after 48 hours Assessment and Plan Plan: Assessment: 1. Acute kidney injury secondary to ATN secondary to hypotension and hemodynamic instability. Creatinine peaked at 1.89 this admission and is 1.59 today. Baseline creatinine near 1. No proteinuria on UA. 2. Bradycardia and complete heart block status post temporary transvenous pacemaker placement on admission. Status post permanent pacemaker placement this morning. 3. Hypovolemic hyponatremia improved with IV hydration. 4. Lactic acidosis secondary to hypotension. Improved with IV hydration. 5. Hypotension currently off Levophed. Resolved. 6. Acute hypoxic and hypercapnic respiratory failure. Currently intubated. 7. Possible seizures. Maintained on Keppra. Plan: Hep-Lock IV fluids once tube feeds initiated. Off on diuretics today. Continue to monitor renal function and urine output. Wean FiO2.
--- NOTE | 2019-03-20 13:15 | EEG ---
ELECTROENCEPHALOGRAM REPORT PROCEDURE DATE: 03/19/2019 ELECTROENCEPHALOGRAM (EEG) REPORT: TECHNIQUE: A routine 18 channel EEG was performed with video using the 10/20 international placement system. HISTORY: Third-degree heart block, hypotension, renal insufficiency. Patient was admitted through the ER for complaints of unresponsiveness and possible seizure. Patient reported to have a known brain tumor? Other medical history includes heart failure, COPD, dementia, diabetes, hypertension. CURRENT MEDICATIONS: Propofol, Protonix, norepinephrine, Narcan, Singulair, potassium chloride. STUDY DURATION: 23 minutes. FINDINGS: BACKGROUND: The background activity consisted of unsustained 5-6 hertz rhythmic waveforms. ACTIVATION: Hyperventilation: Not performed. Photic stimulation: Not performed. Sleep: Drowsy. ABNORMALITIES: 1. Diffuse 4-6 hertz polymorphic theta range slowing was seen. 2. Frequent moderate voltage triphasic waves were seen. Please note that the patient was intubated. IMPRESSION: Abnormal EEG. The diffuse theta range slowing mentioned above is not epileptiform in nature. The triphasic waves mentioned above are not epileptiform in nature. Triphasic waves can be seen in the setting of a metabolic encephalopathy. These findings indicate moderate diffuse cerebral dysfunction as may be seen in a toxometabolic encephalopathy. No seizures were recorded. No epileptiform activity was present. MMODL / IJN: [id number] /
--- NOTE | 2019-03-20 13:53 | P.PN ---
Subjective Progress Note Date: 03/20/19 Principal diagnosis: Complete heart block This is a 73-year-old white female patient with multiple comorbid conditions, with previous history of complete heart block requiring temporary pacemaker November 2018. Patient at that time clinically improved, and did not require placement of a permanent pacemaker. On patient was brought to the hospital by her daughter for weakness, lethargy, on the way to the hospital patient had a seizure. Does have underlying history of seizure disorder, currently on Keppra. Other medical history includes COPD/asthma, diabetes melli tus, chronic congestive heart failure, hypertension, osteoarthritis, sleep apnea, anxiety, depression, smoking history. Patient is on dexamethasone 4 history of a meningioma, or some type of a benign brain lesion, the details are not available to us. On arrival to the hospital she was found to be bradycardic with a heart rate in the 30s and the rhythm was a complete heart block. Dopamine was started however the right did not improve, she was symptomatic, was also hypotensive with systolic blood pressure ranging from 60s to 80s. Fluid challenge was given, 2-1/2 L of IV normal saline. [facility], where a transvenous pacemaker was inserted via right groin, right femoral art line was inserted. Patient returned to the intensive care unit, on the 100% nonrebreather, however her respiratory status continued to decline, she was increasingly lethargic, blood gas showed pO2 of 56, pCO2 of 77, and pH of 7.25, and this was done and FiO2 of 40%, BiPAP support was initially attempted, however patient failed. Patient was intubated, placed on mechanical ventilator. This morning she seen in the intensive care unit, sedated and intubated on mechanical ventilator, and settings are assist-control mode with a rate of 20, tidal at 450, FiO2 of 40%, and PEEP of 5. This morning blood gases showed pO2 of 156, pCO2 of 37, pH is 7.47, on those settings. IV 0.9 normal saline at a rate of 20, Diprivan and is at 35 mics per kilo per minute, and levo fed is at 7 mics per minute. Dopamine had been discontinued as the patient had no response to it. She is currently being paced at a rate of 60 BPM transvenous pacemaker. It showed bibasilar infiltrates, suspected small bilateral pleural effusions, atelectasis along the minor fissure on the right, patient has a chronic elev ation of the left hemidiaphragm. This morning his blood work showed white blood cell count of 13.8, hemoglobin of 9.1, serum sodium is 134, potassium is 3.9, chloride is 99, CO2 was 26, B1 is 24, creatinine is 1.61, TSH was within normal limits at 1.470, lactic acid was 1.3 from 3.8. Blood cultures, urine culture, urine cultures have been sent. Emiliano antibiotic coverage in the form of Rocephin. On 03/19/2019 she is seen in follow-up in the intensive care unit, she remains sedated, intubated on mechanical ventilator, current vent settings are assist control mode of ventilation with a rate of 16, tidal vital 450, FiO2 35% and PEEP of 5. This morning blood gases were reviewed, and showed a pO2 of 107, pCO2 40, pH of 7.42, this was done and FiO2 of 35%, will drop down the FiO2 to 30%. Today's chest x-ray has been reviewed, and shows bibasilar atelectasis, and small pleural effusions, patient has been weaned off the levo fed drip, currently on Diprivan at 35 mics per kilo per minute, and 0.9 normal saline at a rate of 20 ML per hour, we'll give the patient of dose of IV Lasix 40 mg. Today's lab work has been reviewed, and showed a white blood cell count of 12.5, hemoglobin of 8.9, platelet count is 346, sodium is 135, potassium is 4.0, chloride is 103, renal profile is stable, B1 is 27, creatinine is 1.87. Urine output is 30-40 mL per hour. Blood and sputum cultures have been negative thus far. Intact tympanic coverage in the form of Rocephin, patient has had no fevers. She remains pacemaker dependent, and underlying rhythm is asystole, continues with the TVP in the right groin, and the pacing at a rate of 60 BPM. On 03/20/2019 patient seen in follow-up in the intensive care unit, she remains intubated, and on mechanical ventilator, she returned from placement of permanent pacemaker, tolerated procedure well, following the procedure patient was given a sedation holiday, patient was quite agitated, is every sedated, and she remains on assist control mode of ventilation with a rate of 16, tidal volume of 450, FiO2 of 100%, and PEEP of 5. This morning's chest x-ray showed bibasilar atelectasis, small pleural effusions. IV 0.9 normal saline at a rate of 20 ML per hour, no other drips. This morning's blood gas was reviewed, showed pO2 of 91, pCO2 41, pH of 7.41, this was done and FiO2 of 35%, this morning's blood work has been reviewed. Vital signs are stable, patient is afebrile, nonoliguric. Antibiotic coverage in the form of Rocephin continues, patient did receive clindamycin per cardiology for antimicrobial prophylaxis, blood and sputum cultures show no growth. Objective - Vital Signs Vital signs: Vital Signs Temp 98.1 F 03/20/19 12:00 Pulse 89 03/20/19 13:00 Resp 12 03/20/19 13:00 BP 107/74 03/20/19 06:30 Pulse Ox 99 03/20/19 13:00 Intake & Output 03/19/19 03/20/19 03/20/19 18:59 06:59 18:59 Intake Total 9088.104 5140 770.738 Output Total 1008 480 310 Balance 491.402 628 460.738 Weight 119.3 kg 119.3 kg Intake: IV 1123 858 609 0.9 TVP 240 220 220 IV Fluid Continuation 1, 600 605 55 000 ml @ 0 mls/hr IV .[facility] Rx#:[id number] cefTRIAXone 1 gm In 50 100 Sodium Chloride 0.9% 50 ml @ 100 mls/hr IVPB Q24HR [facility] Rx#:[id number] levETIRAcetam IV 500 mg 200 100 In Sodium Chloride 0.9% 100 ml @ 400 mls/hr IVPB Q8HR [facility] Rx#:[id number] pressure bag 33 33 3 Intake, IV Titration 296.402 200 161.738 Amount Norepinephrine 4 mg In 28.089 Sodium Chloride 0.9% 250 ml @ 0.05 MCG/KG/MIN 22. 294 mls/hr IV .[id number] [facility] Rx#:[id number] Propofol 1,000 mg In 268.313 200 161.738 Empty Bag 1 bag @ Titrate IV .Q0M [facility] Rx#: [id number] Tube Feeding 80 20 Other 30 Output: Urine 1008 480 310 Other: Voiding Method Indwelling Catheter Indwelling Catheter Indwelling Catheter ABP, PAP, CO, CI - Last Documented Arterial Blood Pressure 135/66 - Exam GENERAL EXAM: Obese 73-year-old white female, intubated on mechanical ventilator, sedated, comfortable in no apparent distress. HEAD: Normocephalic/atraumatic. EYES: Normal reaction of pupils, equal size. Conjunctiva pink, sclera white. NOSE: Clear with pink turbinates. THROAT: No erythema or exudates. NECK: No masses, no JVD, no thyroid enlargement, no adenopathy. CHEST: No chest wall deformity. Symmetrical expansion. Left upper chest incisions clean dry and intact, soft, covered with surgical dressing. LUNGS: Equal air entry with no crackles, wheeze, rhonchi or dullness. Diminished Breath sounds at the bases CVS: Irregular rate and rhythm, normal S1 and S2, no gallops, no murmurs, no rubs. ABDOMEN: Soft, nontender. No hepatosplenomegaly, normal bowel sounds, no guarding or rigidity. EXTREMITIES: No clubbing, no edema, no cyanosis, 2+ pulses and upper and lower extremities. MUSCULOSKELETAL: Muscle strength and tone normal. Interval removal of the right femoral transvenous pacemaker, SPINE: No scoliosis or deformity SKIN: No rashes CENTRAL NERVOUS SYSTEM: Sedated. No focal deficits, tone is normal in all 4 extremities. - Labs CBC & Chem 7: 03/20/19 04:08 03/20/19 04:08 Labs: Abnormal Lab Results - Last 24 Hours (Table) 03/19/19 03/20/19 03/20/19 Range/Units 18:20 01:04 04:08 WBC 11.8 H (3.8-10.6) k/uL RBC 2.92 L (3.80-5.40) m/uL Hgb 8.5 L (11.4-16.0) gm/dL Hct 26.5 L (34.0-46.0) % Neutrophils # 10.3 H (1.3-7.7) k/uL Lymphocytes # 0.6 L (1.0-4.8) k/uL ABG HCO3 (21-25) mmol/L ABG Total CO2 (19-24) mmol/L BUN (7-17) mg/dL Creatinine (0.52-1.04) mg/dL Glucose (74-99) mg/dL POC Glucose (mg/dL) 141 H 160 H (75-99) mg/dL Calcium (8.4-10.2) mg/dL Total Protein (6.3-8.2) g/dL Albumin (3.5-5.0) g/dL 03/20/19 03/20/19 03/20/19 Range/Units 04:08 05:55 06:58 WBC (3.8-10.6) k/uL RBC (3.80-5.40) m/uL Hgb (11.4-16.0) gm/dL Hct (34.0-46.0) % Neutrophils # (1.3-7.7) k/uL Lymphocytes # (1.0-4.8) k/uL ABG HCO3 26 H (21-25) mmol/L ABG Total CO2 27 H (19-24) mmol/L BUN 30 H (7-17) mg/dL Creatinine 1.59 H (0.52-1.04) mg/dL Glucose 139 H (74-99) mg/dL POC Glucose (mg/dL) 127 H (75-99) mg/dL Calcium 8.1 L (8.4-10.2) mg/dL Total Protein 5.3 L (6.3-8.2) g/dL Albumin 2.9 L (3.5-5.0) g/dL 03/20/19 Range/Units 11:33 WBC (3.8-10.6) k/uL RBC (3.80-5.40) m/uL Hgb (11.4-16.0) gm/dL Hct (34.0-46.0) % Neutrophils # (1.3-7.7) k/uL Lymphocytes # (1.0-4.8) k/uL ABG HCO3 (21-25) mmol/L ABG Total CO2 (19-24) mmol/L BUN (7-17) mg/dL Creatinine (0.52-1.04) mg/dL Glucose (74-99) mg/dL POC Glucose (mg/dL) 140 H (75-99) mg/dL Calcium (8.4-10.2) mg/dL Total Protein (6.3-8.2) g/dL Albumin (3.5-5.0) g/dL Microbiology - Last 24 Hours (Table) 03/18/19 03:45 Gram Stain - Final Sputum Sputum Culture - Final 03/17/19 22:00 Blood Culture - Preliminary Blood No Growth after 48 hours 03/17/19 20:16 Blood Culture - Preliminary Blood No Growth after 48 hours Assessment and Plan Plan: Assessment: #1. Acute hypoxemic and hypercapnic respiratory failure related to hypoventilation. Chest x-ray showed bibasilar infiltrates, small bilateral pleural effusions. #2. Third-degree heart block, symptomatic bradycardia, status post transvenous pacemaker placement and today on 03/20/2019 patient underwent placement of the permanent pacemaker #3. Breakthrough seizures, despite Keppra, likely related to hypoperfusion #4. Mild lactic acidosis, possibly related to hypotension related to bradycardia and complete heart block, rule out sepsis, cultures are pending, patient is covered with empiric antibiotic coverage. Improved with hydration #5. Acute kidney injury secondary to ATN #6. Hypotension related to bradycardia, improved, ration has been weaned off vasopressor support as off 03/19/2019 #7. History of COPD, with a baseline FEV1 of 65% of predicted, patient has a component of restrictive and obstructive pulmonary defect. #8. Previous episode of complete heart block in November 2018 which was transient, resolved on its own, and patient did not require placement of a permanent pacemaker, requiring just a temporary transvenous pacemaker. Heart catheterization was performed at that time on 11/25/2018 revealing normal coronary arteries. Last echocardiogram showed preserved left ventricular systolic function with an EF of 50-55%, mild aortic stenosis with peak/mean gradient across the aortic valve of 19.9 mmHg/10.5 mmHg, no evidence of pulmonary hypertension, there was mild tricuspid regurgitation #9. Elevated d-dimer, nonspecific #10. Morbid obesity #11. Former nicotine dependence history Plan: We will keep the patient sedated today, she woke up quite agitated today, we'll keep her intubated and ventilated today. Continue with the same vent settings, wean FiO2. Today's chest x-ray shows stable findings of bibasilar atelectasis and small pleural effusions, hemodynamically patient remains stable, no fever chills, continue with antibiotics, patient underwent permanent pacemaker placement, tolerated procedure well. Continue GI and DVT prophylaxis, today's labs have been reviewed. We'll proceed with daily interruption sedation, spontaneous breathing trials and possible extubation in the morning. Initiate tube feedings today. I performed a history & physical examination of the patient and discussed their management with my nurse practitioner, Maggie Morin. I reviewed the nurse practitioner's note and agree with the documented findings and plan of care. Lung sounds are positive for breast sounds. The findings and the impression was discussed with the patient. I attest to the documentation by the nurse practitioner. Time with Patient: Greater than 30
[2019-03-20] MEDS: CLINDAMYCIN 900 MG in DEXTROSE 5% IN WATER 50 ML IVPB SCH ×4 (15:38→21:49)
[2019-03-20 18:46] LABS: Glucose,Whole Blood 164 mg/dL (75-99)
[2019-03-20] MEDS ORDERED: SODIUM CHLORIDE 0.9% 1,000 ML IV ONE (23:58)
[2019-03-21] MEDS: PROPOFOL 1,000 MG in EMPTY BAG 1 BAG IV SCH ×4 (00:03→07:07)
[2019-03-21 00:05] LABS: Glucose,Whole Blood 150 mg/dL (75-99)
[2019-03-21] MEDS: INSULIN ASPART (NovoLOG) 100 UNIT/ML VIAL SQ SCH ×4 (00:28→18:08)
[2019-03-21] MEDS: NOREPINEPHRINE 4 MG in SODIUM CHLORIDE 0.9% 250 ML IV SCH ×4 (00:28→22:59)
[2019-03-21] MEDS: levETIRAcetam IV 500 MG in SODIUM CHLORIDE 0.9% 100 ML IVPB SCH ×4 (00:53→23:04)
[2019-03-21] MEDS: CLINDAMYCIN 900 MG in DEXTROSE 5% IN WATER 50 ML IVPB SCH ×4 (03:17→08:23)
[2019-03-21] MEDS: IPRATROPIUM-ALBUTEROL 3 ML NEB INHALATION SCH ×6 (03:38→22:57)
[2019-03-21 05:11] LABS: Basophils % (A) 0 %; Eosinophils # (A) 0.1 k/uL (0-0.7); Eosinophils % (A) 1 %; HCT 24.5 % (34.0-46.0); HGB 7.8 gm/dL (11.4-16.0); Hypochromasia Slight; Lymphocytes # (A) 0.5 k/uL (1.0-4.8); Lymphocytes % (A) 5 %; MCH 29.9 pg (25.0-35.0); MCV 93.3 fL (80.0-100.0); Mean Platelet Volume 7.2; Monocytes # (A) 0.5 k/uL (0-1.0); Monocytes % (A) 5 %; Neutrophils # (A) 8.1 k/uL (1.3-7.7); Neutrophils % (A) 88 %; Platelet Count 305 k/uL (150-450); RBC 2.63 m/uL (3.80-5.40); RDW 15.2 % (11.5-15.5); WBC 9.3 k/uL (3.8-10.6)
[2019-03-21] MEDS: SODIUM CHLORIDE 0.9% 1,000 ML IV SCH (05:56)
[2019-03-21 06:25] LABS: Glucose,Whole Blood 183 mg/dL (75-99)
[2019-03-21 06:38] LABS: Albumin 2.7 g/dL (3.5-5.0); Calcium 8.1 mg/dL (8.4-10.2); Magnesium 1.9 mg/dL (1.6-2.3); Total Bilirubin 0.2 mg/dL (0.2-1.3); Total Protein 4.9 g/dL (6.3-8.2)
--- NOTE | 2019-03-21 07:18 | XR ---
EXAMINATION TYPE: XR chest 1V portable DATE OF EXAM: 03/21/2019 Comparison: 03/20/2019 Clinical History: 73-year-old female Tube placement Findings: ET tube is satisfactory. NG tube courses below the diaphragm. Heart remains mildly enlarged with inte rstitial prominence. Left anterior chest wall pacemaker generator with right atrial and right ventric ular leads. Continued small left greater than right pleural effusions with bibasilar opacities. Impression: Similar cardiomegaly with small left greater than right pleural effusions with adjacent atelectasis a nd/or consolidation. Correlate for possible mild CHF as an etiology.
[2019-03-21 07:28] LABS: ABG Base Excess -3.6 mmol/L; ABG HCO3 22 mmol/L (21-25); ABG Oxygen Saturation 98.5 % (94-97); ABG PCO2 37 mmHg (35-45); ABG PH 7.37 (7.35-7.45); ABG PO2 116 mmHg (83-108); ABG TCO2 23 mmol/L (19-24)
[2019-03-21] MEDS: DULoxetine HCL 30 MG CAPSULE.DR PO SCH (08:22)
[2019-03-21] MEDS: PANTOPRAZOLE 40 MG/10 ML VIAL IVP SCH (08:22)
[2019-03-21] MEDS: MONTELUKAST 10 MG TAB PO SCH (08:23)
[2019-03-21] MEDS: DEXAMETHASONE SOD PHOSPHATE 4 MG/ML 1 ML VIAL IV SCH (08:23)
[2019-03-21] MEDS: CHLORHEXIDINE GLUCONATE 15 ML CUP MUCOUS MEM SCH ×2 (08:23→19:40)
[2019-03-21] MEDS: ENOXAPARIN 30 MG/0.3 ML SYRINGE SQ SCH (08:23)
[2019-03-21] MEDS ORDERED: hydrALAZINE HCL 20 MG/ML 1 ML VIAL IVP PRN (08:54)
[2019-03-21] MEDS ORDERED: FUROSEMIDE 10 MG/ML 2 ML VIAL IV ONE (10:24)
--- NOTE | 2019-03-21 10:24 | P.PN ---
Subjective Progress Note Date: 03/21/19 Principal diagnosis: complete heart block This is a 73-year-old white female patient with multiple comorbid conditions, with previous history of complete heart block requiring temporary pacemaker November 2018. Patient at that time clinically improved, and did not require placement of a permanent pacemaker. On patient was brought to the hospital by her daughter for weakness, lethargy, on the way to the hospital patient had a seizure. Does have underlying history of seizure disorder, currently on Keppra. Other medical history includes COPD/asthma, diabetes melli tus, chronic congestive heart failure, hypertension, osteoarthritis, sleep apnea, anxiety, depression, smoking history. Patient is on dexamethasone 4 history of a meningioma, or some type of a benign brain lesion, the details are not available to us. On arrival to the hospital she was found to be bradycardic with a heart rate in the 30s and the rhythm was a complete heart block. Dopamine was started however the right did not improve, she was symptomatic, was also hypotensive with systolic blood pressure ranging from 60s to 80s. Fluid challenge was given, 2-1/2 L of IV normal saline. She was taken to the sugar laboratory assistant, where a transvenous pacemaker was inserted via right groin, right femoral art line was inserted. Patient returned to the intensive care unit, on the 100% nonrebreather, however her respiratory status continued to decline, she was increasingly lethargic, blood gas showed pO2 of 56, pCO2 of 77, and pH of 7.25, and this was done and FiO2 of 40%, BiPAP support was initially attempted, however patient failed. Patient was intubated, placed on mechanical ventilator. This morning she seen in the intensive care unit, sedated and intubated on mechanical ventilator, and settings are assist-control mode with a rate of 20, tidal at 450, FiO2 of 40%, and PEEP of 5. This morning blood gases showed pO2 of 156, pCO2 of 37, pH is 7.47, on those settings. IV 0.9 normal saline at a rate of 20, Diprivan and is at 35 mics per kilo per minute, and levo fed is at 7 mics per minute. Dopamine had been discontinued as the patient had no response to it. She is currently being paced at a rate of 60 BPM transvenous pacemaker. It showed bibasilar infiltrates, suspected small bilateral pleural effusions, atelectasis along the minor fissure on the right, patient has a chronic elev ation of the left hemidiaphragm. This morning his blood work showed white blood cell count of 13.8, hemoglobin of 9.1, serum sodium is 134, potassium is 3.9, chloride is 99, CO2 was 26, B1 is 24, creatinine is 1.61, TSH was within normal limits at 1.470, lactic acid was 1.3 from 3.8. Blood cultures, urine culture, urine cultures have been sent. Emiliano antibiotic coverage in the form of Rocephin. On 03/19/2019 she is seen in follow-up in the intensive care unit, she remains sedated, intubated on mechanical ventilator, current vent settings are assist control mode of ventilation with a rate of 16, tidal vital 450, FiO2 35% and PEEP of 5. This morning blood gases were reviewed, and showed a pO2 of 107, pCO2 40, pH of 7.42, this was done and FiO2 of 35%, will drop down the FiO2 to 30%. Today's chest x-ray has been reviewed, and shows bibasilar atelectasis, and small pleural effusions, patient has been weaned off the levo fed drip, currently on Diprivan at 35 mics per kilo per minute, and 0.9 normal saline at a rate of 20 ML per hour, we'll give the patient of dose of IV Lasix 40 mg. Today's lab work has been reviewed, and showed a white blood cell count of 12.5, hemoglobin of 8.9, platelet count is 346, sodium is 135, potassium is 4.0, chloride is 103, renal profile is stable, B1 is 27, creatinine is 1.87. Urine output is 30-40 mL per hour. Blood and sputum cultures have been negative thus far. Intact tympanic coverage in the form of Rocephin, patient has had no fevers. She remains pacemaker dependent, and underlying rhythm is asystole, continues with the TVP in the right groin, and the pacing at a rate of 60 BPM. On 03/20/2019 patient seen in follow-up in the intensive care unit, she remains intubated, and on mechanical ventilator, she returned from placement of permanent pacemaker, tolerated procedure well, following the procedure patient was given a sedation holiday, patient was quite agitated, is every sedated, and she remains on assist control mode of ventilation with a rate of 16, tidal volume of 450, FiO2 of 100%, and PEEP of 5. This morning's chest x-ray showed bibasilar atelectasis, small pleural effusions. IV 0.9 normal saline at a rate of 20 ML per hour, no other drips. This morning's blood gas was reviewed, showed pO2 of 91, pCO2 41, pH of 7.41, this was done and FiO2 of 35%, this morning's blood work has been reviewed. Vital signs are stable, patient is afebrile, nonoliguric. Antibiotic coverage in the form of Rocephin continues, patient did receive clindamycin per cardiology for antimicrobial prophylaxis, blood and sputum cultures show no growth. Reevaluated today on 03/21/2019, patient remains on mechanical ventilation, sedat ed on propofol, assist control rate of 16 tidal volume of 450 FiO2 is 30%, PEEP is 5.ABG this morning showed a pO2 of 116 pCO2 of 37 pH of 7.37 WBC count is 9.3 hemoglobin is 7.8.electrolytes are normal BUN is 30 creatinine 1.30, improved compared to the last few days. Her baseline creatinine is 1.21. Chest x-ray showed cardiomegaly small left-sided pleural effusion with minimal adjacent atelectasis.patient remains on multiple meds as listed including antibiotics, steroids, Lovenox, DuoNeb updrafts,insulin, she is on propofol which I plan to discontinue today and give the patient a trial of weaning if possible. We'll hold tube feeding in the process Objective - Vital Signs Vital signs: Vital Signs Temp 98.5 F 03/21/19 08:00 Pulse 94 03/21/19 10:00 Resp 20 03/21/19 10:00 BP 127/66 03/21/19 10:00 Pulse Ox 95 03/21/19 10:00 Intake & Output 03/20/19 03/21/19 03/21/19 18:59 06:59 18:59 Intake Total 1289.750 3351.716 401.857 Output Total 840 485 280 Balance 307.812 0213.716 121.857 Weight 119.3 kg Intake: IV 1035 1608 297 0.9 TVP 220 IV Fluid Continuation 1, 460 475 135 000 ml @ 0 mls/hr IV .STK -MED ONE Rx#:[id number] Sodium Chloride 0.9% 1, 1000 000 ml @ 999 mls/hr IV . Q1H1M [facility] Rx#:[id number] cefTRIAXone 1 gm In 100 50 Sodium Chloride 0.9% 50 ml @ 100 mls/hr IVPB Q24HR [facility] Rx#:[id number] levETIRAcetam IV 500 mg 100 100 100 In Sodium Chloride 0.9% 100 ml @ 400 mls/hr IVPB Q8HR [facility] Rx#:[id number] pressure bag 24 33 12 Intake, IV Titration 303.937 437.716 44.857 Amount Norepinephrine 4 mg In 10.303 Sodium Chloride 0.9% 250 ml @ 0.05 MCG/KG/MIN 22. 727 mls/hr IV .[id number] [facility] Rx#:[id number] Propofol 1,000 mg In 303.937 427.413 44.857 Empty Bag 1 bag @ Titrate IV .Q0M [facility] Rx#: [id number] Tube Feeding 40 220 60 Output: Urine 840 485 280 Other: Voiding Method Indwelling Catheter Indwelling Catheter Indwelling Catheter ABP, PAP, CO, CI - Last Documented Arterial Blood Pressure 98/62 - Exam GENERAL EXAM: Obese 73-year-old white female, on mechanical ventilation, sedated.. HEAD: Normocephalic/atraumatic. HEENT: PERRLA, EOMI, moist mucous membranes, short obese neck, positive supraclavicular fat pads, endotracheal tube and orogastric tube are intact, CHEST: No chest wall deformity. Symmetrical expansion. Left upper chest incisions clean dry and intact, soft, covered with surgical dressing. LUNGS: Equal air entry with no crackles, wheeze, rhonchi or dullness. Diminished Breath sounds at the bases CVS: Irregular rate and rhythm, normal S1 and S2, no gallops, no murmurs, no rubs. ABDOMEN: Soft, nontender. No hepatosplenomegaly, normal bowel sounds, no guarding or rigidity. EXTREMITIES: No clubbing, no edema, no cyanosis, 2+ pulses and upper and lower extremities. MUSCULOSKELETAL: Muscle strength and tone normal. Interval removal of the right femoral transvenous pacemaker, SPINE: No scoliosis or deformity SKIN: No rashes CENTRAL NERVOUS SYSTEM: Sedated. No focal deficits, tone is normal in all 4 extremities. - Labs CBC & Chem 7: 03/21/19 05:00 03/21/19 05:00 Labs: Abnormal Lab Results - Last 24 Hours (Table) 03/20/19 03/20/19 03/20/19 Range/Units 11:33 18:35 23:53 RBC (3.80-5.40) m/uL Hgb (11.4-16.0) gm/dL Hct (34.0-46.0) % Neutrophils # (1.3-7.7) k/uL Lymphocytes # (1.0-4.8) k/uL ABG pO2 (83-108) mmHg ABG O2 Saturation (94-97) % BUN (7-17) mg/dL Creatinine (0.52-1.04) mg/dL Glucose (74-99) mg/dL POC Glucose (mg/dL) 140 H 164 H 150 H (75-99) mg/dL Calcium (8.4-10.2) mg/dL AST (14-36) U/L Total Protein (6.3-8.2) g/dL Albumin (3.5-5.0) g/dL 03/21/19 03/21/19 03/21/19 Range/Units 05:00 05:00 06:14 RBC 2.63 L (3.80-5.40) m/uL Hgb 7.8 L (11.4-16.0) gm/dL Hct 24.5 L (34.0-46.0) % Neutrophils # 8.1 H (1.3-7.7) k/uL Lymphocytes # 0.5 L (1.0-4.8) k/uL ABG pO2 (83-108) mmHg ABG O2 Saturation (94-97) % BUN 30 H (7-17) mg/dL Creatinine 1.30 H (0.52-1.04) mg/dL Glucose 161 H (74-99) mg/dL POC Glucose (mg/dL) 183 H (75-99) mg/dL Calcium 8.1 L (8.4-10.2) mg/dL AST 13 L (14-36) U/L Total Protein 4.9 L (6.3-8.2) g/dL Albumin 2.7 L (3.5-5.0) g/dL 03/21/19 Range/Units 07:26 RBC (3.80-5.40) m/uL Hgb (11.4-16.0) gm/dL Hct (34.0-46.0) % Neutrophils # (1.3-7.7) k/uL Lymphocytes # (1.0-4.8) k/uL ABG pO2 116 H (83-108) mmHg ABG O2 Saturation 98.5 H (94-97) % BUN (7-17) mg/dL Creatinine (0.52-1.04) mg/dL Glucose (74-99) mg/dL POC Glucose (mg/dL) (75-99) mg/dL Calcium (8.4-10.2) mg/dL AST (14-36) U/L Total Protein (6.3-8.2) g/dL Albumin (3.5-5.0) g/dL Microbiology - Last 24 Hours (Table) 03/17/19 22:00 Blood Culture - Preliminary Blood No Growth after 72 hours 03/17/19 20:16 Blood Culture - Preliminary Blood No Growth after 72 hours 03/18/19 03:45 Gram Stain - Final Sputum Sputum Culture - Final Assessment and Plan Assessment: #1. Acute hypoxemic and hypercapnic respiratory failure related to hypoventila tion. no clinical evidence of pneumonia, chest x-ray showed pleural effusions and atelectasis. #2. Third-degree heart block, symptomatic bradycardia, status post transvenous pacemaker placement , initially had a temporary one, and yesterday she had a permanent pacemaker placement #3. Breakthrough seizures, despite Keppra, likely related to hypoperfusion #4. Mild lactic acidosis, possibly related to hypotension related to bradycardia and complete heart block, rule out sepsis, Cultures have been negative. #5. Acute kidney injury secondary to ATN #6. Hypotension related to bradycardia, resolved #7. History of COPD, with a baseline FEV1 of 65% of predicted, patient has a component of restrictive and obstructive pulmonary defect. #8. Previous episode of complete heart block in November 2018 which was transient, resolved on its own, #9. Elevated d-dimer, nonspecific #10. Morbid obesity #11 history of moderate COPD. Recommendation: Will awaken the patient today, we'll hold tube feeding, will check weaning parameters, discontinue propofol, if the weaning parameters are good, patient will be given a weaning trial, will utilize pressure support and CPAP, and if tolerated with good ABG post an hour of pressure support and CPAP, I would likely proceed to extubation. In the meantime we'll continue present supportive care measures including empiric antibiotics, diuretics, bronchodilators, GI and DVT prophylaxis, and nutritional support. We'll continue to follow. Critical care time is 33 minutes Time with Patient: Greater than 30
[2019-03-21 11:20] LABS: ABG Base Excess 1.6 mmol/L; ABG HCO3 26 mmol/L (21-25); ABG Oxygen Saturation 96.3 % (94-97); ABG PCO2 40 mmHg (35-45); ABG PH 7.43 (7.35-7.45); ABG PO2 81 mmHg (83-108); ABG TCO2 27 mmol/L (19-24)
--- NOTE | 2019-03-21 11:54 | P.PN ---
Subjective Progress Note Date: 03/21/19 03/21/2018: Patient seen and examined in the intensive care unit with nursing staff at bedside. Patient seen as we are covering for Dr. Sharif. The patient is currently on spontaneous breathing trial. She is tolerating well. She has been off of Levophed since yesterday. The patient has a creatinine of 1.3 and hemoglobin of 7.8. She is awake and alert and following commands. Objective - Vital Signs Vital signs: Vital Signs Temp 98.5 F 03/21/19 08:00 Pulse 90 03/21/19 11:26 Resp 20 03/21/19 10:00 BP 127/66 03/21/19 10:00 Pulse Ox 95 03/21/19 10:00 Intake & Output 03/20/19 03/21/19 03/21/19 18:59 06:59 18:59 Intake Total 5928.243 4778.716 421.857 Output Total 840 485 280 Balance 629.035 4683.716 141.857 Weight 119.3 kg Intake: IV 1035 1608 297 0.9 TVP 220 IV Fluid Continuation 1, 460 475 135 000 ml @ 0 mls/hr IV .STK -[facility] ONE Rx#:[id number] Sodium Chloride 0.9% 1, 1000 000 ml @ 999 mls/hr IV . Q1H1M [facility] Rx#:[id number] cefTRIAXone 1 gm In 100 50 Sodium Chloride 0.9% 50 ml @ 100 mls/hr IVPB Q24HR [facility] Rx#:[id number] levETIRAcetam IV 500 mg 100 100 100 In Sodium Chloride 0.9% 100 ml @ 400 mls/hr IVPB Q8HR [facility] Rx#:[id number] pressure bag 24 33 12 Intake, IV Titration 303.937 437.716 44.857 Amount Norepinephrine 4 mg In 10.303 Sodium Chloride 0.9% 250 ml @ 0.05 MCG/KG/MIN 22. 727 mls/hr IV .[id number] [facility] Rx#:[id number] Propofol 1,000 mg In 303.937 427.413 44.857 Empty Bag 1 bag @ Titrate IV .Q0M [facility] Rx#: [id number] Tube Feeding 40 220 80 Output: Urine 840 485 280 Other: Voiding Method Indwelling Catheter Indwelling Catheter Indwelling Catheter ABP, PAP, CO, CI - Last Documented Arterial Blood Pressure 98/62 - Exam Head normocephalic Neck supple Lungs mechinally ventilated. Diminished bilaterally Heart regular rate and rhythm S1-S2, no rub or gallop Abdomen is soft nontender nondistended positive bowel sounds no hepatospleno megaly Extremities no edema Neuro awake on ventilator, following commands - Labs CBC & Chem 7: 03/21/19 05:00 03/21/19 05:00 Labs: Abnormal Lab Results - Last 24 Hours (Table) 03/20/19 03/20/19 03/21/19 Range/Units 18:35 23:53 05:00 RBC 2.63 L (3.80-5.40) m/uL Hgb 7.8 L (11.4-16.0) gm/dL Hct 24.5 L (34.0-46.0) % Neutrophils # 8.1 H (1.3-7.7) k/uL Lymphocytes # 0.5 L (1.0-4.8) k/uL ABG pO2 (83-108) mmHg ABG HCO3 (21-25) mmol/L ABG Total CO2 (19-24) mmol/L ABG O2 Saturation (94-97) % BUN (7-17) mg/dL Creatinine (0.52-1.04) mg/dL Glucose (74-99) mg/dL POC Glucose (mg/dL) 164 H 150 H (75-99) mg/dL Calcium (8.4-10.2) mg/dL AST (14-36) U/L Total Protein (6.3-8.2) g/dL Albumin (3.5-5.0) g/dL 03/21/19 03/21/19 03/21/19 Range/Units 05:00 06:14 07:26 RBC (3.80-5.40) m/uL Hgb (11.4-16.0) gm/dL Hct (34.0-46.0) % Neutrophils # (1.3-7.7) k/uL Lymphocytes # (1.0-4.8) k/uL ABG pO2 116 H (83-108) mmHg ABG HCO3 (21-25) mmol/L ABG Total CO2 (19-24) mmol/L ABG O2 Saturation 98.5 H (94-97) % BUN 30 H (7-17) mg/dL Creatinine 1.30 H (0.52-1.04) mg/dL Glucose 161 H (74-99) mg/dL POC Glucose (mg/dL) 183 H (75-99) mg/dL Calcium 8.1 L (8.4-10.2) mg/dL AST 13 L (14-36) U/L Total Protein 4.9 L (6.3-8.2) g/dL Albumin 2.7 L (3.5-5.0) g/dL 03/21/19 Range/Units 11:18 RBC (3.80-5.40) m/uL Hgb (11.4-16.0) gm/dL Hct (34.0-46.0) % Neutrophils # (1.3-7.7) k/uL Lymphocytes # (1.0-4.8) k/uL ABG pO2 81 L (83-108) mmHg ABG HCO3 26 H (21-25) mmol/L ABG Total CO2 27 H (19-24) mmol/L ABG O2 Saturation (94-97) % BUN (7-17) mg/dL Creatinine (0.52-1.04) mg/dL Glucose (74-99) mg/dL POC Glucose (mg/dL) (75-99) mg/dL Calcium (8.4-10.2) mg/dL AST (14-36) U/L Total Protein (6.3-8.2) g/dL Albumin (3.5-5.0) g/dL Microbiology - Last 24 Hours (Table) 03/17/19 22:00 Blood Culture - Preliminary Blood No Growth after 72 hours 03/17/19 20:16 Blood Culture - Preliminary Blood No Growth after 72 hours 03/18/19 03:45 Gram Stain - Final Sputum Sputum Culture - Final Assessment and Plan Assessment: 1. Third-degree heart block, symptomatic bradycardic. Status post pacemaker placement 2. Acute hypoxic and hypercapnic respiratory failure requiring mechanical ventilation. Pulmonary critical care service is following. Patient undergoing SBT with the hopes of extubation today 3. Possible Seizures. Patient is maintained on Keppra. Keppra has been increased to 500 IV 3 times a day. Head CT completed showing no definitive acute process. Keppra level 39.8. 4. Acute kidney injury secondary to ATN secondary to hypotension hemodynamically instability. Nephrology services are following. Patient received 120 of Lasix. Urine output has improved. Creatinine is improving 5. Hypotension related to cardiogenic shock. Patient is off of levophed at this time. 6. Urinary tract infection. UA positive for leukocyte esterase. Urine culture shows no growth, consider de-escalation of ABX 7. History of COPD. 8. Previous episode of complete heart block in November 2018 which was transient 9. Underlying history of seizure disorder which she is maintained on Keppra. EEG completed. 10. History of depression and anxiety 11. History of obstructive sleep apnea 12. History of chronic cor pulmonale 13. History of brain meningioma. Maintained on dexamethasone 14. Lactic acidosis. Initial lactic acid 3.8. Repeat 1.3. Patient positive for UTI. Patient currently maintained on Rocephin 15. Anemia, follow hemoglobin, transfuse if <7 16. Moderate PCM, patient was receiving tube feeds which have been held for SBT DVT prophylaxis Lovenox. GI prophylaxis Protonix Critical care, cardiology and nephrology services following
[2019-03-21 12:10] LABS: Glucose,Whole Blood 136 mg/dL (75-99)
[2019-03-21] MEDS: FOLIC ACID 1 MG TAB PO SCH (12:15)
--- NOTE | 2019-03-21 12:21 | PN ---
PROGRESS NOTE This is a 73-year-old lady who was admitted to hospital with third-degree heart block and underwent permanent pacemaker. At the moment, she is in sinus rhythm and blood pressure is somewhat elevated, through yesterday she required pressors from time to time. Pacemaker was evaluated and was functioning normally. Currently plans are underway to extubate her. On exam, she is intubated on vent. Heart rate is 90 beats per minute. Blood pressure is 127/56. Respiratory rate is 24. Chest exam reveals diminished air entry at the bases. Heart exam reveals first and second heart sounds. No gallop. Pacer site appears mildly edematous. Examination of extremities reveals mild edema. Peripheral pulses are felt. LABS: Labs show that her hemoglobin is 7.8. Potassium is 4. Creatinine is 1.3. Chest x-ray shows cardiomegaly with small left-sided pleural effusion. ASSESSMENT: Complete heart block status, post permanent pacemaker. Patient is doing well. She can be extubated today and we will adjust the antihypertensives as we need to. MMODL / IJN: [id number] /
--- NOTE | 2019-03-21 13:52 | P.PN ---
Subjective Progress Note Date: 03/21/19 Principal diagnosis: Patient is seen in follow-up for acute kidney injury. Her baseline creatinine is 1. It peaked at 1.89 this admission and is down to and 1.3 this morning. Benigno shea is currently on a BiPAP, somewhat obtunded, she was previously intubated. Blood gases to pH of 7.43 pCO2 40 and pO2 of 81. On 35%. She seems to be having some difficulty breathing. She is off Levophed was discontinued. She has a transvenous pacer was placed on admission due to complete heart block and had a permanent pacemaker placed yesterday morning. Echocardiogram revealed ejection fraction of 45-50%. She will be starting on tube feeding.. Objective - Vital Signs Vital signs: Vital Signs Temp 97.9 F 03/21/19 12:00 Pulse 96 03/21/19 12:00 Resp 21 03/21/19 12:00 BP 127/66 03/21/19 11:30 Pulse Ox 95 03/21/19 12:00 Intake & Output 03/20/19 03/21/19 03/21/19 18:59 06:59 18:59 Intake Total 8782.394 9659.716 517.857 Output Total 840 485 540 Balance 530.852 8699.716 -22.143 Weight 119.3 kg Intake: IV 1035 1608 393 0.9 TVP 220 IV Fluid Continuation 1, 460 475 225 000 ml @ 0 mls/hr IV .STK -[facility] ONE Rx#:[id number] Sodium Chloride 0.9% 1, 1000 000 ml @ 999 mls/hr IV . Q1H1M [facility] Rx#:[id number] cefTRIAXone 1 gm In 100 50 Sodium Chloride 0.9% 50 ml @ 100 mls/hr IVPB Q24HR [facility] Rx#:[id number] levETIRAcetam IV 500 mg 100 100 100 In Sodium Chloride 0.9% 100 ml @ 400 mls/hr IVPB Q8HR [facility] Rx#:[id number] pressure bag 24 33 18 Intake, IV Titration 303.937 437.716 44.857 Amount Norepinephrine 4 mg In 10.303 Sodium Chloride 0.9% 250 ml @ 0.05 MCG/KG/MIN 22. 727 mls/hr IV .[id number] [facility] Rx#:[id number] Propofol 1,000 mg In 303.937 427.413 44.857 Empty Bag 1 bag @ Titrate IV .Q0M [facility] Rx#: [id number] Tube Feeding 40 220 80 Output: Urine 840 485 540 Other: Voiding Method Indwelling Catheter Indwelling Catheter Indwelling Catheter ABP, PAP, CO, CI - Last Documented Arterial Blood Pressure 151/65 On examination she is obtunded, responds. She is on BiPAP HEENT exam is somewhat difficult neck is supple no facial asymmetry JVP is difficult to see Lungs are clear to auscultation with an occasional coarse crackle. Fair air entry bilaterally Heart sounds are unremarkable normal sinus rhythm Abdomen is soft obese Extremity exam was mild to moderate edema. Neurologically, somnolent but arousable and tries to follow commands - Labs CBC & Chem 7: 03/21/19 05:00 03/21/19 05:00 Labs: Abnormal Lab Results - Last 24 Hours (Table) 03/20/19 03/20/19 03/21/19 Range/Units 18:35 23:53 05:00 RBC 2.63 L (3.80-5.40) m/uL Hgb 7.8 L (11.4-16.0) gm/dL Hct 24.5 L (34.0-46.0) % Neutrophils # 8.1 H (1.3-7.7) k/uL Lymphocytes # 0.5 L (1.0-4.8) k/uL ABG pO2 (83-108) mmHg ABG HCO3 (21-25) mmol/L ABG Total CO2 (19-24) mmol/L ABG O2 Saturation (94-97) % BUN (7-17) mg/dL Creatinine (0.52-1.04) mg/dL Glucose (74-99) mg/dL POC Glucose (mg/dL) 164 H 150 H (75-99) mg/dL Calcium (8.4-10.2) mg/dL AST (14-36) U/L Total Protein (6.3-8.2) g/dL Albumin (3.5-5.0) g/dL 03/21/19 03/21/19 03/21/19 Range/Units 05:00 06:14 07:26 RBC (3.80-5.40) m/uL Hgb (11.4-16.0) gm/dL Hct (34.0-46.0) % Neutrophils # (1.3-7.7) k/uL Lymphocytes # (1.0-4.8) k/uL ABG pO2 116 H (83-108) mmHg ABG HCO3 (21-25) mmol/L ABG Total CO2 (19-24) mmol/L ABG O2 Saturation 98.5 H (94-97) % BUN 30 H (7-17) mg/dL Creatinine 1.30 H (0.52-1.04) mg/dL Glucose 161 H (74-99) mg/dL POC Glucose (mg/dL) 183 H (75-99) mg/dL Calcium 8.1 L (8.4-10.2) mg/dL AST 13 L (14-36) U/L Total Protein 4.9 L (6.3-8.2) g/dL Albumin 2.7 L (3.5-5.0) g/dL 03/21/19 03/21/19 Range/Units 11:18 11:58 RBC (3.80-5.40) m/uL Hgb (11.4-16.0) gm/dL Hct (34.0-46.0) % Neutrophils # (1.3-7.7) k/uL Lymphocytes # (1.0-4.8) k/uL ABG pO2 81 L (83-108) mmHg ABG HCO3 26 H (21-25) mmol/L ABG Total CO2 27 H (19-24) mmol/L ABG O2 Saturation (94-97) % BUN (7-17) mg/dL Creatinine (0.52-1.04) mg/dL Glucose (74-99) mg/dL POC Glucose (mg/dL) 136 H (75-99) mg/dL Calcium (8.4-10.2) mg/dL AST (14-36) U/L Total Protein (6.3-8.2) g/dL Albumin (3.5-5.0) g/dL Microbiology - Last 24 Hours (Table) 03/17/19 22:00 Blood Culture - Preliminary Blood No Growth after 72 hours 03/17/19 20:16 Blood Culture - Preliminary Blood No Growth after 72 hours Assessment and Plan Plan: Impression 1. Acute kidney injury secondary to ATN secondary to hypotension and hemodynamic instability. Creatinine peaked at 1.89 this admission and is 1.3 today. Baseline creatinine near 1. No proteinuria on UA. 2. Bradycardia and complete heart block status post temporary transvenous pacemaker placement on admission. Status post permanent pacemaker placement on 03/20/2019 yesterday 3. Hypovolemic hyponatremia improved with IV hydration. 4. Lactic acidosis secondary to hypotension. Resolved 5. Hypotension currently off Levophed. Resolved. 6. Acute hypoxic and hypercapnic respiratory failure. Currently extubated and is on BiPAP 7. Possible seizures. Maintained on Keppra. Plan: 1. Hep-Lock IV fluids once tube feeds initiated. 2. May use Lasix as needed on a when necessary basis . 3 strict I's and O 4. Monitor labs on a daily basis
[2019-03-21] MEDS: METOPROLOL SUCCINATE (ER) 25 MG TAB.ER.24H PO SCH (18:08)
[2019-03-21 18:17] LABS: Glucose,Whole Blood 115 mg/dL (75-99)
[2019-03-21 23:49] LABS: Glucose,Whole Blood 87 mg/dL (75-99)
[2019-03-22] MEDS: INSULIN ASPART (NovoLOG) 100 UNIT/ML VIAL SQ SCH ×5 (00:11→20:49)
[2019-03-22] MEDS ORDERED: HALOPERIDOL LACTATE 5 MG/ML 1 ML VIAL IVP ONE (00:22)
[2019-03-22] MEDS ORDERED: QUEtiapine 25 MG TAB PO STA (00:33)
[2019-03-22] MEDS: SODIUM CHLORIDE 0.9% 1,000 ML IV SCH ×2 (02:21→20:50)
[2019-03-22] MEDS: IPRATROPIUM-ALBUTEROL 3 ML NEB INHALATION SCH ×6 (03:22→23:13)
[2019-03-22 05:02] LABS: Basophils % (A) 0 %; Eosinophils # (A) 0.1 k/uL (0-0.7); Eosinophils % (A) 0 %; HCT 26.6 % (34.0-46.0); HGB 8.5 gm/dL (11.4-16.0); Lymphocytes # (A) 1.2 k/uL (1.0-4.8); Lymphocytes % (A) 11 %; MCH 29.4 pg (25.0-35.0); MCHC 31.9 g/dL (31.0-37.0); MCV 92.3 fL (80.0-100.0); Monocytes % (A) 10 %; Neutrophils # (A) 8.3 k/uL (1.3-7.7); Neutrophils % (A) 78 %; Platelet Count 325 k/uL (150-450); RBC 2.89 m/uL (3.80-5.40); RDW 15.2 % (11.5-15.5); WBC 10.7 k/uL (3.8-10.6)
[2019-03-22 05:14] LABS: Albumin 2.9 g/dL (3.5-5.0); Calcium 8.7 mg/dL (8.4-10.2); Magnesium 1.9 mg/dL (1.6-2.3); Potassium 3.6 mmol/L (3.5-5.1); Total Bilirubin 0.3 mg/dL (0.2-1.3); Total Protein 5.3 g/dL (6.3-8.2)
[2019-03-22 05:36] LABS: Glucose,Whole Blood 85 mg/dL (75-99)
[2019-03-22] MEDS: MAGNESIUM SULFATE-D5W PMX 1 GM in DEXTROSE/WATER 1 100ML.BAG IVPB SCH ×2 (06:09→08:07)
[2019-03-22] MEDS: POTASSIUM CHLORIDE 10 MEQ in WATER FOR INJECTION 1 100ML.BAG IVPB SCH ×2 (06:09→08:08)
--- NOTE | 2019-03-22 07:17 | XR ---
EXAMINATION TYPE: XR chest 1V portable DATE OF EXAM: 03/22/2019 HISTORY: Shortness of breath. COMPARISON: 03/21/2019 TECHNIQUE: Single view of the chest is submitted. FINDINGS: Endotracheal tube and NG tube have been removed. No evidence for pneumothorax. Pacer device in place. Persistent and increasing left basilar infiltrate, effusion and/or atelectasis. The heart is stable. Hilar and mediastinal structures are within normal limits. Degenerative changes are seen of the dorsal spine. IMPRESSION: 1. Persistent and increasing left basilar infiltrate, effusion and/or atelectasis.
[2019-03-22] MEDS: ENOXAPARIN 30 MG/0.3 ML SYRINGE SQ SCH (08:07)
[2019-03-22] MEDS: MONTELUKAST 10 MG TAB PO SCH (08:07)
[2019-03-22] MEDS: METOPROLOL SUCCINATE (ER) 25 MG TAB.ER.24H PO SCH (08:07)
[2019-03-22] MEDS: DULoxetine HCL 30 MG CAPSULE.DR PO SCH (08:07)
[2019-03-22] MEDS: levETIRAcetam IV 500 MG in SODIUM CHLORIDE 0.9% 100 ML IVPB SCH ×2 (08:08→17:19)
[2019-03-22] MEDS: DEXAMETHASONE SOD PHOSPHATE 4 MG/ML 1 ML VIAL IV SCH (08:09)
[2019-03-22] MEDS: PANTOPRAZOLE 40 MG/10 ML VIAL IVP SCH (08:09)
[2019-03-22] MEDS: CHLORHEXIDINE GLUCONATE 15 ML CUP MUCOUS MEM SCH (08:55)
--- NOTE | 2019-03-22 11:21 | P.PN ---
Subjective Progress Note Date: 03/22/19 Principal diagnosis: complete heart block This is a 73-year-old white female patient with multiple comorbid conditions, with previous history of complete heart block requiring temporary pacemaker November 2018. Patient at that time clinically improved, and did not require placement of a permanent pacemaker. On patient was brought to the hospital by her daughter for weakness, lethargy, on the way to the hospital patient had a seizure. Does have underlying history of seizure disorder, currently on Keppra. Other medical history includes COPD/asthma, diabetes melli tus, chronic congestive heart failure, hypertension, osteoarthritis, sleep apnea, anxiety, depression, smoking history. Patient is on dexamethasone 4 history of a meningioma, or some type of a benign brain lesion, the details are not available to us. On arrival to the hospital she was found to be bradycardic with a heart rate in the 30s and the rhythm was a complete heart block. Dopamine was started however the right did not improve, she was symptomatic, was also hypotensive with systolic blood pressure ranging from 60s to 80s. Fluid challenge was given, 2-1/2 L of IV normal saline. She was taken to the [facility], where a transvenous pacemaker was inserted via right groin, right femoral art line was inserted. Patient returned to the intensive care unit, on the 100% nonrebreather, however her respiratory status continued to decline, she was increasingly lethargic, blood gas showed pO2 of 56, pCO2 of 77, and pH of 7.25, and this was done and FiO2 of 40%, BiPAP support was initially attempted, however patient failed. Patient was intubated, placed on mechanical ventilator. This morning she seen in the intensive care unit, sedated and intubated on mechanical ventilator, and settings are assist-control mode with a rate of 20, tidal at 450, FiO2 of 40%, and PEEP of 5. This morning blood gases showed pO2 of 156, pCO2 of 37, pH is 7.47, on those settings. IV 0.9 normal saline at a rate of 20, Diprivan and is at 35 mics per kilo per minute, and levo fed is at 7 mics per minute. Dopamine had been discontinued as the patient had no response to it. She is currently being paced at a rate of 60 BPM transvenous pacemaker. It showed bibasilar infiltrates, suspected small bilateral pleural effusions, atelectasis along the minor fissure on the right, patient has a chronic elev ation of the left hemidiaphragm. This morning his blood work showed white blood cell count of 13.8, hemoglobin of 9.1, serum sodium is 134, potassium is 3.9, chloride is 99, CO2 was 26, B1 is 24, creatinine is 1.61, TSH was within normal limits at 1.470, lactic acid was 1.3 from 3.8. Blood cultures, urine culture, urine cultures have been sent. Emiliano antibiotic coverage in the form of Rocephin. On 03/19/2019 she is seen in follow-up in the intensive care unit, she remains sedated, intubated on mechanical ventilator, current vent settings are assist control mode of ventilation with a rate of 16, tidal vital 450, FiO2 35% and PEEP of 5. This morning blood gases were reviewed, and showed a pO2 of 107, pCO2 40, pH of 7.42, this was done and FiO2 of 35%, will drop down the FiO2 to 30%. Today's chest x-ray has been reviewed, and shows bibasilar atelectasis, and small pleural effusions, patient has been weaned off the levo fed drip, currently on Diprivan at 35 mics per kilo per minute, and 0.9 normal saline at a rate of 20 ML per hour, we'll give the patient of dose of IV Lasix 40 mg. Today's lab work has been reviewed, and showed a white blood cell count of 12.5, hemoglobin of 8.9, platelet count is 346, sodium is 135, potassium is 4.0, chloride is 103, renal profile is stable, B1 is 27, creatinine is 1.87. Urine output is 30-40 mL per hour. Blood and sputum cultures have been negative thus far. Intact tympanic coverage in the form of Rocephin, patient has had no fevers. She remains pacemaker dependent, and underlying rhythm is asystole, continues with the TVP in the right groin, and the pacing at a rate of 60 BPM. On 03/20/2019 patient seen in follow-up in the intensive care unit, she remains intubated, and on mechanical ventilator, she returned from placement of permanent pacemaker, tolerated procedure well, following the procedure patient was given a sedation holiday, patient was quite agitated, is every sedated, and she remains on assist control mode of ventilation with a rate of 16, tidal volume of 450, FiO2 of 100%, and PEEP of 5. This morning's chest x-ray showed bibasilar atelectasis, small pleural effusions. IV 0.9 normal saline at a rate of 20 ML per hour, no other drips. This morning's blood gas was reviewed, showed pO2 of 91, pCO2 41, pH of 7.41, this was done and FiO2 of 35%, this morning's blood work has been reviewed. Vital signs are stable, patient is afebrile, nonoliguric. Antibiotic coverage in the form of Rocephin continues, patient did receive clindamycin per cardiology for antimicrobial prophylaxis, blood and sputum cultures show no growth. Reevaluated today on 03/21/2019, patient remains on mechanical ventilation, sedat ed on propofol, assist control rate of 16 tidal volume of 450 FiO2 is 30%, PEEP is 5.ABG this morning showed a pO2 of 116 pCO2 of 37 pH of 7.37 WBC count is 9.3 hemoglobin is 7.8.electrolytes are normal BUN is 30 creatinine 1.30, improved compared to the last few days. Her baseline creatinine is 1.21. Chest x-ray showed cardiomegaly small left-sided pleural effusion with minimal adjacent atelectasis.patient remains on multiple meds as listed including antibiotics, steroids, Lovenox, DuoNeb updrafts,insulin, she is on propofol which I plan to discontinue today and give the patient a trial of weaning if possible. We'll hold tube feeding in the process Reevaluated today on 03/22/2019, patient is off mechanical ventilation, extubated yesterday uneventfully. She was placed on BiPAP overnight, and today she was placed on few liters nasal cannula. Patient is doing well, does not seem to be in any distress, denies any chest pain, slightly confused, but oriented to place not time and not person. She knew exactly where she was.labs were reviewed CBC is relatively normal hemoglobin is 8.5 her electrolytes are normal creatinine today is 1.21, basically back to her baseline significantly improved over the last few days Objective - Vital Signs Vital signs: Vital Signs Temp 98.3 F 03/22/19 04:00 Pulse 102 H 03/22/19 08:42 Resp 22 03/22/19 07:00 BP 127/66 03/21/19 15:00 Pulse Ox 95 03/22/19 07:00 Intake & Output 03/21/19 03/22/19 03/22/19 18:59 06:59 18:59 Intake Total 805.857 904 48 Output Total 2030 1030 90 Balance -1224.143 -126 -42 Weight 124 kg Intake: IV 681 704 48 IV Fluid Continuation 1, 495 565 45 000 ml @ 0 mls/hr IV .[facility] Rx#:[id number] cefTRIAXone 1 gm In 50 Sodium Chloride 0.9% 50 ml @ 100 mls/hr IVPB Q24HR [facility] Rx#:[id number] levETIRAcetam IV 500 mg 100 100 In Sodium Chloride 0.9% 100 ml @ 400 mls/hr IVPB Q8HR [facility] Rx#:[id number] pressure bag 36 39 3 Intake, IV Titration 44.857 200 Amount Magnesium Sulfate-D5w Pmx 100 1 gm In Dextrose/Water 1 100ml.bag @ 100 mls/hr IVPB Q1H [facility] Rx#: [id number] Potassium Chloride 10 meq 100 In Water For Injection 1 100ml.bag @ 100 mls/hr IVPB Q1H [facility] Rx#: [id number] Propofol 1,000 mg In 44.857 Empty Bag 1 bag @ Titrate IV .Q0M [facility] Rx#: [id number] Tube Feeding 80 Output: Urine 2030 1030 90 Other: Voiding Method Indwelling Catheter Indwelling Catheter Indwelling Catheter ABP, PAP, CO, CI - Last Documented Arterial Blood Pressure 102/69 - Exam GENERAL EXAM: Obese 73-year-old white female, on 4 L nasal cannula, in no distress. HEAD: Normocephalic/atraumatic. HEENT: PERRLA, EOMI, moist mucous membranes, short obese neck, positive supraclavicular fat pads, CHEST: No chest wall deformity. Symmetrical expansion. Left upper chest incisions clean dry and intact, soft, covered with surgical dressing. LUNGS: Equal air entry with no crackles, wheeze, rhonchi. Slightly diminished breath sounds and dullness over the left base. CVS: regular rate and rhythm, normal S1 and S2, no gallops, no murmurs, no rubs. ABDOMEN: morbidly obese,Soft, nontender. No hepatosplenomegaly, normal bowel sounds, no guarding or rigidity. EXTREMITIES: No clubbing, no edema, no cyanosis, 2+ pulses and upper and lower extremities. MUSCULOSKELETAL: Muscle strength and tone normal. I SKIN: No rashes CENTRAL NERVOUS SYSTEM: awake, oriented 1/place, not oriented to time or person. Moves all extremities, follows simple instructions quite well. Lymphatics: No lymphadenopathy. - Labs CBC & Chem 7: 03/22/19 04:20 03/22/19 04:20 Labs: Abnormal Lab Results - Last 24 Hours (Table) 03/21/19 03/21/19 03/21/19 Range/Units 11:18 11:58 18:06 WBC (3.8-10.6) k/uL RBC (3.80-5.40) m/uL Hgb (11.4-16.0) gm/dL Hct (34.0-46.0) % Neutrophils # (1.3-7.7) k/uL ABG pO2 81 L (83-108) mmHg ABG HCO3 26 H (21-25) mmol/L ABG Total CO2 27 H (19-24) mmol/L BUN (7-17) mg/dL Creatinine (0.52-1.04) mg/dL POC Glucose (mg/dL) 136 H 115 H (75-99) mg/dL Total Protein (6.3-8.2) g/dL Albumin (3.5-5.0) g/dL 03/22/19 03/22/19 Range/Units 04:20 04:20 WBC 10.7 H (3.8-10.6) k/uL RBC 2.89 L (3.80-5.40) m/uL Hgb 8.5 L (11.4-16.0) gm/dL Hct 26.6 L (34.0-46.0) % Neutrophils # 8.3 H (1.3-7.7) k/uL ABG pO2 (83-108) mmHg ABG HCO3 (21-25) mmol/L ABG Total CO2 (19-24) mmol/L BUN 31 H (7-17) mg/dL Creatinine 1.21 H (0.52-1.04) mg/dL POC Glucose (mg/dL) (75-99) mg/dL Total Protein 5.3 L (6.3-8.2) g/dL Albumin 2.9 L (3.5-5.0) g/dL Microbiology - Last 24 Hours (Table) 03/17/19 22:00 Blood Culture - Preliminary Blood No Growth after 96 hours 03/17/19 20:16 Blood Culture - Preliminary Blood No Growth after 96 hours Assessment and Plan Assessment: #1. Acute hypoxemic and hypercapnic respiratory failure related to hypoventilation. required intubation and mechanical ventilation, extubated uneventfully on 03/21/2019. And tolerated the extubation well. #2. Third-degree heart block, symptomatic bradycardia, status post transvenous pacemaker placement , initially had a temporary one, and yesterday she had a permanent pacemaker placement #3. Breakthrough seizures, despite Keppra, resolved #4. Mild lactic acidosis, possibly related to hypotension related to bradycardia and complete heart block, rule out sepsis, Cultures have been negati ve.resolved #5. Acute kidney injury secondary to ATN, improving, renal profile is back to her base line creatinine is 1.21 #6. Hypotension related to bradycardia, resolved #7. History of COPD, with a baseline FEV1 of 65% of predicted, patient has a component of restrictive and obstructive pulmonary defect. #8. Previous episode of complete heart block in November 2018 which was transient, resolved on its own, #9. Elevated d-dimer, nonspecific #10. Morbid obesity #11 history of moderate COPD. #12 small left pleural effusion with atelectasis, not large enough to consider thoracentesis at this point. Recommendation: continue present supportive care measures, titrate FiO2 accord ingly keep saturation above 90%. Use BiPAP as needed. ContinueGI and DVT prophylaxis. Continue antibiotics, updrafts, blood pressure medications,incentive spirometry, physical therapy, patient will likely benefit from placement to ECF in the next couple of days. Considering her debility and obesity, doubt the patient could ambulate on her own at this point. She will definitely need physical therapy, and possibly rehab referral. Long-term prognosis remains poor and guarded. Time with Patient: Less than 30
[2019-03-22] MEDS ORDERED: METOPROLOL SUCCINATE (ER) 25 MG TAB.ER.24H PO STA (11:44)
[2019-03-22] MEDS: NOREPINEPHRINE 4 MG in SODIUM CHLORIDE 0.9% 250 ML IV SCH ×2 (12:02→22:37)
[2019-03-22] MEDS: FOLIC ACID 1 MG TAB PO SCH (12:06)
[2019-03-22 12:07] LABS: Glucose,Whole Blood 144 mg/dL (75-99)
--- NOTE | 2019-03-22 13:17 | PN ---
PROGRESS NOTE Isabel is a 73-year-old lady who was admitted to hospital with complete heart block. She initially underwent a temporary transvenous pacemaker and subsequently had a permanent pacemaker. She is extubated, currently is on a non-rebreather and appears somewhat confused. She is not using the pacemaker regularly. EXAM: Heart rate is 90 beats per minute. Blood pressure is 140/77, respiratory rate is 18. Chest exam reveals diminished air entry at the bases with occasional rhonchi. Heart exam reveals first and second heart sounds. No gallop. Abdomen is soft. Exam of the extremities reveals mild edema. Peripheral pulses are felt. LAB: Show a hemoglobin of 8.5, platelet count is 325. Potassium is 3.6, creatinine is 1.2. ASSESSMENT: Complete heart block status post permanent pacemaker. Patient is doing well. Continue with current medication. MMODL / IJN: [id number] /
--- NOTE | 2019-03-22 13:22 | P.PN ---
Subjective Progress Note Date: 03/22/19 Principal diagnosis: Patient is seen in follow-up for acute kidney injury. Her baseline creatinine is 1. It peaked at 1.89 this admission and is down to and 1.3 as of yesterday, for the down to 1.2 as of this morning. She remains short of breath on BiPAP. Complains of not getting enough air to breathe. Initially she was intubated and then extubated and on BiPAP now She seems to be having some difficulty breathing. She is off Levophed. She has a transvenous pacer was placed on admission due to complete heart block and had a permanent pacemaker placed yesterday morning. Echocardiogram revealed ejection fraction of 45-50%. History of present illness; Patient presented to the hospital with generalized weakness. On the way to the hospital she also had a seizure in the car. Patient was hypotensive in the emergency room. Blood pressure was in the systolic 70s to 80s. She did receive 3 L of normal saline bolus and is now maintained on normal saline at 1 20 mL an hour. She is currently oliguric. She did receive 40 mg of Lasix last night and an additional 80 mg IV Lasix this morning with no response and urine output. She was noted to be bradycardic with heart rate in the 30s and was noted to be in complete heart block. She had a transvenous pacer placed last night. Currently the heart rate is 60 as set by the pacemaker. Blood pressure is 124/53. She is currently intubated and sedated. She was taking Lasix at home which is currently held. I don't see any nonsteroidals in her medication list. Objective - Vital Signs Vital signs: Vital Signs Temp 98 F 03/22/19 08:00 Pulse 98 03/22/19 12:16 Resp 21 03/22/19 11:30 BP 127/66 03/22/19 07:30 Pulse Ox 96 03/22/19 11:30 Intake & Output 03/21/19 03/22/19 03/22/19 18:59 06:59 18:59 Intake Total 805.857 904 260 Output Total 2029 1030 460 Balance -1224.143 -126 -200 Weight 124 kg Intake: IV 681 704 260 IV Fluid Continuation 1, 495 565 245 000 ml @ 0 mls/hr IV .[facility] Rx#:[id number] cefTRIAXone 1 gm In 50 Sodium Chloride 0.9% 50 ml @ 100 mls/hr IVPB Q24HR [facility] Rx#:[id number] levETIRAcetam IV 500 mg 100 100 In Sodium Chloride 0.9% 100 ml @ 400 mls/hr IVPB Q8HR [facility] Rx#:[id number] pressure bag 36 39 15 Intake, IV Titration 44.857 200 Amount Magnesium Sulfate-D5w Pmx 100 1 gm In Dextrose/Water 1 100ml.bag @ 100 mls/hr IVPB Q1H [facility] Rx#: [id number] Potassium Chloride 10 meq 100 In Water For Injection 1 100ml.bag @ 100 mls/hr IVPB Q1H [facility] Rx#: [id number] Propofol 1,000 mg In 44.857 Empty Bag 1 bag @ Titrate IV .Q0M [facility] Rx#: [id number] Tube Feeding 80 Output: Urine 2030 1030 460 Other: Voiding Method Indwelling Catheter Indwelling Catheter Indwelling Catheter ABP, PAP, CO, CI - Last Documented Arterial Blood Pressure 146/77 Ill-looking female, on BiPAP. She has generalized anasarca HEENT exam is difficult because of the anasarca and shortness No facial asymmetry noted neck is supple Lungs are significant for bilateral wheezing and diminished air entry bilaterally Heart sounds are unremarkable for any murmur rub gallop Abdomen soft nontender but obese protuberant Extremity stasis edema Neurologically arousable but somewhat confused and is very anxious - Labs CBC & Chem 7: 03/22/19 04:20 03/22/19 04:20 Labs: Abnormal Lab Results - Last 24 Hours (Table) 03/21/19 03/22/19 03/22/19 Range/Units 18:06 04:20 04:20 WBC 10.7 H (3.8-10.6) k/uL RBC 2.89 L (3.80-5.40) m/uL Hgb 8.5 L (11.4-16.0) gm/dL Hct 26.6 L (34.0-46.0) % Neutrophils # 8.3 H (1.3-7.7) k/uL BUN 31 H (7-17) mg/dL Creatinine 1.21 H (0.52-1.04) mg/dL POC Glucose (mg/dL) 115 H (75-99) mg/dL Total Protein 5.3 L (6.3-8.2) g/dL Albumin 2.9 L (3.5-5.0) g/dL 03/22/19 Range/Units 11:55 WBC (3.8-10.6) k/uL RBC (3.80-5.40) m/uL Hgb (11.4-16.0) gm/dL Hct (34.0-46.0) % Neutrophils # (1.3-7.7) k/uL BUN (7-17) mg/dL Creatinine (0.52-1.04) mg/dL POC Glucose (mg/dL) 144 H (75-99) mg/dL Total Protein (6.3-8.2) g/dL Albumin (3.5-5.0) g/dL Microbiology - Last 24 Hours (Table) 03/17/19 22:00 Blood Culture - Preliminary Blood No Growth after 96 hours 03/17/19 20:16 Blood Culture - Preliminary Blood No Growth after 96 hours Assessment and Plan Plan: Impression 1. Acute kidney injury secondary to ATN secondary to hypotension and hemodynamic instability. Creatinine peaked at 1.89 this admission and is 1.2 today. Baseline creatinine near 1. No proteinuria on UA. 2. Bradycardia and complete heart block status post temporary transvenous pacemaker placement on admission. Status post permanent pacemaker placement on 03/20/2019 yesterday 3. Acute hypoxic and hypercapnic respiratory failure. Currently extubated and is on BiPAP 4. Significant edema 5. Anemia of chronic illness hemoglobin is 8.5 6. Possible seizures. Maintained on Keppra. Plan: 1. Start IV Lasix 40 every 12. 2. Strict I's and O's 3. Monitor labs on a daily basis 4. Check iron saturation
[2019-03-22] MEDS: FUROSEMIDE 10 MG/ML 2 ML VIAL IV SCH ×2 (14:07→20:49)
[2019-03-22] MEDS ORDERED: LORazepam 2 MG/ML INJ IV STA (14:13)
[2019-03-22] MEDS ORDERED: ALPRAZolam 0.5 MG TAB PO SCH (14:15)
[2019-03-22] MEDS ORDERED: ALPRAZolam 0.5 MG TAB PO PRN (14:30)
[2019-03-22 17:30] LABS: Glucose,Whole Blood 89 mg/dL (75-99)
--- NOTE | 2019-03-22 18:29 | PN ---
PROGRESS NOTE She was seen on March 22, 2019. She remains in ICU and is on a BiPAP mask. She continues to have shortness of breath. On physical examination, her respiratory rate is 34, pulse rate of 97, blood pressure 149/80. HEENT reveals pupils are equal. BiPAP mask in place. Chest reveals decreased breath sounds. Prolonged expiration with expiratory wheeze. Cardiovascular system is S1, S2. Abdomen is soft. There is 1+ pedal edema. White count is 10.7, hemoglobin of 10.5, sodium 141, potassium 3.6, chloride 107, bicarb 27, BUN 31, creatinine 1.21. IMPRESSION: At this time is: 1. Acute respiratory failure requiring mechanical ventilation. 2. Seizures. 3. Bradycardia status post pacemaker placement. Continue current medications. May require a higher dose of steroid. Continue BiPAP. Prognosis at this time is guarded. We are covering for Dr. Sharif. [place] / ARMAANN: [id number] /
[2019-03-22 20:57] LABS: Glucose,Whole Blood 86 mg/dL (75-99)
[2019-03-23] MEDS: levETIRAcetam IV 500 MG in SODIUM CHLORIDE 0.9% 100 ML IVPB SCH ×4 (00:02→23:33)
[2019-03-23] MEDS: ACETAMINOPHEN TAB 325 MG TAB PO PRN (00:03)
[2019-03-23] MEDS: IPRATROPIUM-ALBUTEROL 3 ML NEB INHALATION SCH ×6 (03:07→23:50)
[2019-03-23 04:55] LABS: Basophils % (A) 0 %; Eosinophils # (A) 0.1 k/uL (0-0.7); Eosinophils % (A) 1 %; HCT 26.3 % (34.0-46.0); HGB 8.4 gm/dL (11.4-16.0); Lymphocytes # (A) 1.1 k/uL (1.0-4.8); Lymphocytes % (A) 12 %; MCH 29.3 pg (25.0-35.0); MCHC 31.9 g/dL (31.0-37.0); MCV 91.9 fL (80.0-100.0); Mean Platelet Volume 7.6; Monocytes # (A) 0.8 k/uL (0-1.0); Monocytes % (A) 8 %; Neutrophils # (A) 7.5 k/uL (1.3-7.7); Neutrophils % (A) 77 %; Platelet Count 309 k/uL (150-450); RBC 2.87 m/uL (3.80-5.40); RDW 15.4 % (11.5-15.5); WBC 9.7 k/uL (3.8-10.6)
[2019-03-23 05:11] LABS: Albumin 2.9 g/dL (3.5-5.0); Calcium 8.5 mg/dL (8.4-10.2); Potassium 3.6 mmol/L (3.5-5.1); Total Bilirubin 0.3 mg/dL (0.2-1.3); Total Protein 5.2 g/dL (6.3-8.2)
[2019-03-23] MEDS: POTASSIUM CHLORIDE 10 MEQ in WATER FOR INJECTION 1 100ML.BAG IVPB SCH ×2 (05:59→07:46)
[2019-03-23] MEDS: INSULIN ASPART (NovoLOG) 100 UNIT/ML VIAL SQ SCH ×4 (06:57→20:46)
[2019-03-23 07:03] LABS: Glucose,Whole Blood 77 mg/dL (75-99)
[2019-03-23] MEDS: NOREPINEPHRINE 4 MG in SODIUM CHLORIDE 0.9% 250 ML IV SCH (07:40)
--- NOTE | 2019-03-23 08:21 | P.PN ---
Subjective Patient is seen in follow-up for acute kidney injury. Her baseline creatinine is 1. It peaked at 1.89 this admission and is down to 1.14 this morning. She is maintained on Lasix 40 mg IV twice daily. She is nonoliguric. Echocardiogram revealed ejection fraction of 45-50%. she was extubated over the weekend. Currently on BiPAP. Hemodynamically stable. Vital signs are stable. General: The patient appeared well nourished and normally developed. Intubated. HEENT: Head exam is unremarkable. Neck is without jugular venous distension. LUNGS: Breath sounds decreased. HEART: Rate and Rhythm are regular. First and second heart sounds normal. No murmurs, rubs or gallops. ABDOMEN: Abdominal exam reveals normal bowel sounds. Non-tender and non- distended. No evidence of peritonitis. EXTREMITITES: Trace edema. Objective - Vital Signs Vital signs: Vital Signs Temp 98.6 F 03/23/19 04:00 Pulse 84 03/23/19 07:15 Resp 24 03/23/19 07:00 BP 97/62 03/23/19 04:00 Pulse Ox 94 L 03/23/19 07:00 Intake & Output 03/22/19 03/23/19 03/23/19 18:59 06:59 18:59 Intake Total 778 736 53 Output Total 2540 2300 75 Balance -1762 -1564 -22 Weight 124 kg 120.1 kg Intake: IV 778 736 53 IV Fluid Continuation 1, 545 50 000 ml @ 0 mls/hr IV .[facility] Rx#:[id number] Sodium Chloride 0.9% 1, 550 50 000 ml @ 50 mls/hr IV . Q20H [facility] Rx#:[id number] levETIRAcetam IV 500 mg 200 100 In Sodium Chloride 0.9% 100 ml @ 400 mls/hr IVPB Q8HR [facility] Rx#:[id number] pressure bag 33 36 3 Intake, IV Titration 0 Amount Norepinephrine 4 mg In 0 Sodium Chloride 0.9% 250 ml @ 0.05 MCG/KG/MIN 22. 727 mls/hr IV .[id number] Rx#:[id number] Output: Urine 2540 2300 75 Other: Voiding Method Indwelling Catheter Indwelling Catheter ABP, PAP, CO, CI - Last Documented Arterial Blood Pressure 112/55 - Labs CBC & Chem 7: 03/23/19 04:45 03/23/19 04:45 Labs: Abnormal Lab Results - Last 24 Hours (Table) 03/22/19 03/23/19 03/23/19 Range/Units 11:55 04:45 04:45 RBC 2.87 L (3.80-5.40) m/uL Hgb 8.4 L (11.4-16.0) gm/dL Hct 26.3 L (34.0-46.0) % Carbon Dioxide 32 H (22-30) mmol/L BUN 28 H (7-17) mg/dL Creatinine 1.14 H (0.52-1.04) mg/dL POC Glucose (mg/dL) 144 H (75-99) mg/dL Total Protein 5.2 L (6.3-8.2) g/dL Albumin 2.9 L (3.5-5.0) g/dL Microbiology - Last 24 Hours (Table) 03/17/19 22:00 Blood Culture - Preliminary Blood No Growth after 120 hours 03/17/19 20:16 Blood Culture - Preliminary Blood No Growth after 120 hours Assessment and Plan Plan: Assessment: 1. Acute kidney injury secondary to ATN secondary to hypotension and hemodynamic instability. Creatinine peaked at 1.89 this admission and is 1.14 today. Baseline creatinine near 1. No proteinuria on UA. 2. Bradycardia and complete heart block status post permanent pacemaker placement on March 20. 3. Mild volume overload. 4. Lactic acidosis secondary to hypotension. Improved with IV hydration. 5. Hypotension currently off Levophed. Resolved. 6. Acute hypoxic and hypercapnic respiratory failure. Currently on BiPAP. 7. Possible seizures. Maintained on Keppra. 8. Hypokalemia secondary to diuresis. 9. Anemia. Rule out iron deficiency. No active bleeding noted. Plan: Maintain Lasix 40 mg IV twice daily. Follow-up chest x-ray. Replace potassium. 40 meq today. Continue to monitor renal function and urine output. Check iron studies.
[2019-03-23] MEDS: DULoxetine HCL 30 MG CAPSULE.DR PO SCH (08:53)
[2019-03-23] MEDS: PANTOPRAZOLE 40 MG/10 ML VIAL IVP SCH (08:59)
[2019-03-23] MEDS: ENOXAPARIN 30 MG/0.3 ML SYRINGE SQ SCH (09:00)
[2019-03-23] MEDS: DEXAMETHASONE SOD PHOSPHATE 4 MG/ML 1 ML VIAL IV SCH (09:00)
[2019-03-23] MEDS: FUROSEMIDE 10 MG/ML 2 ML VIAL IV SCH ×2 (09:00→20:45)
--- NOTE | 2019-03-23 09:13 | XR ---
EXAMINATION TYPE: XR chest 1V portable DATE OF EXAM: 03/23/2019 COMPARISON: 03/22/2019 INDICATION: Short of breath TECHNIQUE: Single frontal view semiupright position of the chest is obtained. FINDINGS: The heart size is mildly prominent. The pulmonary vasculature is normal. There is a mild infiltrate at the left base. Correlate for atelectasis. Some minimal left pleural eff usion may be present. Mild atelectasis at the right base. IMPRESSION: 1. Subsegmental bibasilar atelectasis. Mild pneumonia of the left base is not excluded. Findings appe ar improved from prior study. 2. Small left pleural effusion diminished from previous.
--- NOTE | 2019-03-23 09:45 | P.PN ---
Subjective Progress Note Date: 03/23/19 Principal diagnosis: Complete heart block This is a 73-year-old white female patient with multiple comorbid conditions, with previous history of complete heart block requiring temporary pacemaker November 2018. Patient at that time clinically improved, and did not require placement of a permanent pacemaker. On patient was brought to the hospital by her daughter for weakness, lethargy, on the way to the hospital patient had a seizure. Does have underlying history of seizure disorder, currently on Keppra. Other medical history includes COPD/asthma, diabetes melli tus, chronic congestive heart failure, hypertension, osteoarthritis, sleep apnea, anxiety, depression, smoking history. Patient is on dexamethasone 4 history of a meningioma, or some type of a benign brain lesion, the details are not available to us. On arrival to the hospital she was found to be bradycardic with a heart rate in the 30s and the rhythm was a complete heart block. Dopamine was started however the right did not improve, she was symptomatic, was also hypotensive with systolic blood pressure ranging from 60s to 80s. Fluid challenge was given, 2-1/2 L of IV normal saline. 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 Patient returned to the intensive care unit, on the 100% nonrebreather, however her respiratory status continued to decline, she was increasingly lethargic, blood gas showed pO2 of 56, pCO2 of 77, and pH of 7.25, and this was done and FiO2 of 40%, BiPAP support was initially attempted, however patient failed. Patient was intubated, placed on mechanical ventilator. This morning she seen in the intensive care unit, sedated and intubated on mechanical ventilator, and settings are assist-control mode with a rate of 20, tidal at 450, FiO2 of 40%, and PEEP of 5. This morning blood gases showed pO2 of 156, pCO2 of 37, pH is 7.47, on those settings. IV 0.9 normal saline at a rate of 20, Diprivan and is at 35 mics per kilo per minute, and levo fed is at 7 mics per minute. Dopamine had been discontinued as the patient had no response to it. She is currently being paced at a rate of 60 BPM transvenous pacemaker. It showed bibasilar infiltrates, suspected small bilateral pleural effusions, atelectasis along the minor fissure on the right, patient has a chronic elev ation of the left hemidiaphragm. This morning his blood work showed white blood cell count of 13.8, hemoglobin of 9.1, serum sodium is 134, potassium is 3.9, chloride is 99, CO2 was 26, B1 is 24, creatinine is 1.61, TSH was within normal limits at 1.470, lactic acid was 1.3 from 3.8. Blood cultures, urine culture, urine cultures have been sent. Emiliano antibiotic coverage in the form of Rocephin. On 03/19/2019 she is seen in follow-up in the intensive care unit, she remains sedated, intubated on mechanical ventilator, current vent settings are assist control mode of ventilation with a rate of 16, tidal vital 450, FiO2 35% and PEEP of 5. This morning blood gases were reviewed, and showed a pO2 of 107, pCO2 40, pH of 7.42, this was done and FiO2 of 35%, will drop down the FiO2 to 30%. Today's chest x-ray has been reviewed, and shows bibasilar atelectasis, and small pleural effusions, patient has been weaned off the levo fed drip, currently on Diprivan at 35 mics per kilo per minute, and 0.9 normal saline at a rate of 20 ML per hour, we'll give the patient of dose of IV Lasix 40 mg. Today's lab work has been reviewed, and showed a white blood cell count of 12.5, hemoglobin of 8.9, platelet count is 346, sodium is 135, potassium is 4.0, chloride is 103, renal profile is stable, B1 is 27, creatinine is 1.87. Urine output is 30-40 mL per hour. Blood and sputum cultures have been negative thus far. Intact tympanic coverage in the form of Rocephin, patient has had no fevers. She remains pacemaker dependent, and underlying rhythm is asystole, continues with the TVP in the right groin, and the pacing at a rate of 60 BPM. On 03/20/2019 patient seen in follow-up in the intensive care unit, she remains intubated, and on mechanical ventilator, she returned from placement of permanent pacemaker, tolerated procedure well, following the procedure patient was given a sedation holiday, patient was quite agitated, is every sedated, and she remains on assist control mode of ventilation with a rate of 16, tidal volume of 450, FiO2 of 100%, and PEEP of 5. This morning's chest x-ray showed bibasilar atelectasis, small pleural effusions. IV 0.9 normal saline at a rate of 20 ML per hour, no other drips. This morning's blood gas was reviewed, showed pO2 of 91, pCO2 41, pH of 7.41, this was done and FiO2 of 35%, this morning's blood work has been reviewed. Vital signs are stable, patient is afebrile, nonoliguric. Antibiotic coverage in the form of Rocephin continues, patient did receive clindamycin per cardiology for antimicrobial prophylaxis, blood and sputum cultures show no growth. On 03/23/2019 patient is seen in follow-up in intensive care unit, she is lethargic, arousable to verbal stimuli, she remains on BiPAP support with pressures of 12 with 6 and FiO2 of 35%, she was successfully extubated on 03/21/2019, after being intubated on 03/17/2019. Patient is status post permanent pacemaker placement for complete heart block on 03/20/2019, left upper chest incision is clean dry and intact, covered with surgical dressing, incisions clean dry and intact, soft, patient is currently in sinus rhythm with a controlled rate. Patient was on oral Lasix 20 mg twice daily, chest x-ray shows bilateral pleural effusions, cardiomegaly, diffuse interstitial changes consistent with fluid volume overload and congestive heart failure. Renal profile continues to improve, with creatinine down to 1.14, and BUN at 28, nephrology is following, and patient is been switched to IV Lasix per nephrology at 40 mg twice a day. Lung sounds are diminished, with diffuse crackles the bottoms, IV normal saline at a rate of KVO, right-sided groin venous and arterial catheters are in place, which probably should be discontinued. Hemodynamically patient is stable, she has diffuse anasarca, diffuse swelling in upper and lower extremities, in the pretibial areas patient has cellulitis type changes, and the skin is reddened and warm. Culture results have been reviewed, and remain negative, no cough or congestion. Denies any acute distress, patient is somnolent, but she is able to answer simple questions. Objective - Vital Signs Vital signs: Vital Signs Temp 98.1 F 03/23/19 08:00 Pulse 80 03/23/19 09:00 Resp 49 H 03/23/19 09:00 BP 97/62 03/23/19 08:00 Pulse Ox 97 03/23/19 09:00 Intake & Output 03/22/19 03/23/19 03/23/19 18:59 06:59 18:59 Intake Total 778 736 313 Output Total 2540 2300 275 Balance -1762 -1564 38 Weight 124 kg 120.1 kg Intake: IV 778 736 213 IV Fluid Continuation 1, 545 50 000 ml @ 0 mls/hr IV .[facility] Rx#:[id number] Sodium Chloride 0.9% 1, 550 60 000 ml @ 50 mls/hr IV . Q20H [facility] Rx#:[id number] cefTRIAXone 1 gm In 50 Sodium Chloride 0.9% 50 ml @ 100 mls/hr IVPB Q24HR [facility] Rx#:[id number] levETIRAcetam IV 500 mg 200 100 100 In Sodium Chloride 0.9% 100 ml @ 400 mls/hr IVPB Q8HR [facility] Rx#:[id number] pressure bag 33 36 3 Intake, IV Titration 0 100 Amount Norepinephrine 4 mg In 0 Sodium Chloride 0.9% 250 ml @ 0.05 MCG/KG/MIN 22. 727 mls/hr IV .[id number] [facility] Rx#:[id number] Potassium Chloride 10 meq 100 In Water For Injection 1 100ml.bag @ 100 mls/hr IVPB Q1H [facility] Rx#: [id number] Output: Urine 2540 2300 275 Other: Voiding Method Indwelling Catheter Indwelling Catheter Indwelling Catheter ABP, PAP, CO, CI - Last Documented Arterial Blood Pressure 116/65 - Exam GENERAL EXAM: Obese 73-year-old white female, lethargic, but arousable, on BiPAP support at 12/6 and 35% FiO2, comfortable in no apparent distress. Patient has diffuse anasarca, swelling and upper and lower extremities HEAD: Normocephalic/atraumatic. EYES: Normal reaction of pupils, equal size. Conjunctiva pink, sclera white. NOSE: Clear with pink turbinates. THROAT: No erythema or exudates. NECK: No masses, no JVD, no thyroid enlargement, no adenopathy. CHEST: No chest wall deformity. Symmetrical expansion. Left upper chest incisions clean dry and intact, soft, covered with surgical dressing. LUNGS: Equal air entry with no crackles, wheeze, rhonchi or dullness. Diminished Breath sounds at the bases CVS: Irregular rate and rhythm, normal S1 and S2, no gallops, no murmurs, no rubs. ABDOMEN: Soft, nontender. No hepatosplenomegaly, normal bowel sounds, no guarding or rigidity. EXTREMITIES: No clubbing, 1+ lower extremity and upper extremity edema, skin is fragile, bruised, pretibial areas of the skin are reddened and warm, no cyanosis, 2+ pulses and upper and lower extremities. MUSCULOSKELETAL: Muscle strength and tone normal. Interval removal of the right femoral transvenous pacemaker, SPINE: No scoliosis or deformity SKIN: No rashes CENTRAL NERVOUS SYSTEM: Lethargic, but arousable No focal deficits, tone is normal in all 4 extremities. - Labs CBC & Chem 7: 03/23/19 04:45 03/23/19 04:45 Labs: Abnormal Lab Results - Last 24 Hours (Table) 03/22/19 03/23/19 03/23/19 Range/Units 11:55 04:45 04:45 RBC 2.87 L (3.80-5.40) m/uL Hgb 8.4 L (11.4-16.0) gm/dL Hct 26.3 L (34.0-46.0) % Carbon Dioxide 32 H (22-30) mmol/L BUN 28 H (7-17) mg/dL Creatinine 1.14 H (0.52-1.04) mg/dL POC Glucose (mg/dL) 144 H (75-99) mg/dL Total Protein 5.2 L (6.3-8.2) g/dL Albumin 2.9 L (3.5-5.0) g/dL Microbiology - Last 24 Hours (Table) 03/17/19 22:00 Blood Culture - Preliminary Blood No Growth after 120 hours 03/17/19 20:16 Blood Culture - Preliminary Blood No Growth after 120 hours Assessment and Plan Plan: Assessment: #1. Acute hypoxemic and hypercapnic respiratory failure related to hypoventilation. Chest x-ray showed bibasilar infiltrates, small bilateral pleural effusions. Patient has been intubated on 03/17/2019, and extubated on 03/21/2019. Post extubation required BiPAP support. #2. Third-degree heart block, symptomatic bradycardia, status post transvenous pacemaker placement and today on 03/20/2019 patient underwent placement of the permanent pacemaker #3. Breakthrough seizures, despite Keppra, likely related to hypoperfusion #4. Mild lactic acidosis, possibly related to hypotension related to bradycardia and complete heart block, rule out sepsis, cultures are pending, patient is covered with empiric antibiotic coverage. Improved with hydration #5. Acute kidney injury secondary to ATN, and proved #6. Hypotension related to bradycardia, improved, ration has been weaned off vasopressor support as off 03/19/2019 #7. History of COPD, with a baseline FEV1 of 65% of predicted, patient has a component of restrictive and obstructive pulmonary defect. #8. Previous episode of complete heart block in November 2018 which was transient, resolved on its own, and patient did not require placement of a permanent pacemaker, requiring just a temporary transvenous pacemaker. Heart catheterization was performed at that time on 11/25/2018 revealing normal coronary arteries. Last echocardiogram showed preserved left ventricular systolic function with an EF of 50-55%, mild aortic stenosis with peak/mean gradient across the aortic valve of 19.9 mmHg/10.5 mmHg, no evidence of pulmonary hypertension, there was mild tricuspid regurgitation #9. Elevated d-dimer, nonspecific #10. Morbid obesity #11. Former nicotine dependence history Plan: Agree with IV diuretics at 40 mg every 12 hours, chest x-ray has been reviewed, and is consistent with changes of fluid volume overload, and congestive heart failure. Hemodynamically patient remains stable, she is lethargic, but arousable, very weak. She is requiring BiPAP support intermittently. We will go ahead and give her trial of nasal cannula today. We will obtain a swallow evaluation with speech therapy. Her prognosis is quite guarded, and we spoke to the patient's daughter who is her guardian, who has agreed to change her CODE STATUS to DO NOT RESUSCITATE, for now we'll continue with full supportive treatment. Discontinue the right groin venous and arterial sheaths. Maintain aspiration precautions, may wear the BiPAP on as-needed basis, continue breathing treatments. I performed a history & physical examination of the patient and discussed their management with my nurse practitioner, Maggie Morin. I reviewed the nurse practitioner's note and agree with the documented findings and plan of care. Lung sounds are positive for breast sounds. The findings and the impression was discussed with the patient. I attest to the documentation by the nurse practitioner. Time with Patient: Less than 30
[2019-03-23] MEDS: METOPROLOL SUCCINATE (ER) 50 MG TAB.ER.24H PO SCH (10:36)
[2019-03-23 11:38] LABS: Glucose,Whole Blood 95 mg/dL (75-99)
[2019-03-23] MEDS: FOLIC ACID 1 MG TAB PO SCH (11:38)
--- NOTE | 2019-03-23 14:05 | P.PN ---
Subjective Progress Note Date: 03/23/19 This is a 73-year-old female patient of Dr. Loomis. Patient presented to the ER with complaints of unresponsiveness possible seizure per daughter. Per ER report patient was in the car with her daughter when she had a seizure episode lasting approximately 3 minutes. Patient then came to inpatient was brought to the ER. It is noted patient was bradycardic. 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 Patient was here recently and treated for acute COPD exacerbation. Patient had a prolonged admission in December in which she had a previous pacer placed at that time. EKG showing a complete heart block with a rate 29. Patient was taken to the cardiac Consumer Education Specialist history of 03/17/2019 and temporary venous pacer was placed at that time. Upon returning to the ICU patient went into respiratory distress and required intubation. Patient is also currently on pressure support medication. Patient's creatinine 1.61 and bun 24. Patient has had very little urine output. Patient has been given a total of 120 of Lasix. Critical care management are following. Patient currently has TVP in place. Patient remains in the intensive care unit. On 03/19/2019 patient remains on mechanical ventilation in the intensive care unit. Patient remains on small dose of Levophed. Per nursing staff patient is asystole under TVP. EEG has been ordered. Head CT completed showing no acute process. Keppra has been ordered. Patient currently on Keppra 500 3 times a day. Critical care cardiology and nephrology services are following. Patient's urine output has improved. 03/20/2018 patient is status post dual-chamber pacemaker placement. Patient remains on mechanical ventilation and sedation at this time. Patient has been off pressure support medication per 24 hours. Urine output has improved. Cr eatinine is trending down. Keppra level is therapeutic at 39.8 03/23/2019 patient remains in the ICU. She's currently on eye BiPAP. She was extubated on 03/21/2019. She had pacemaker placement for complete heart block on 03/20/2019. She is currently in sinus rhythm rate controlled. She is on Keppra for a possible seizure. She's had no further seizures. Chest x-ray showed bilateral pleural effusions, cardiomegaly, diffuse interstitial changes consistent with fluid volume overload and congestive heart failure. Patient was given IV Lasix 40 mg twice a day by nephrology. Patient is confused. She is crying out "help me help me." Discussed with nursing staff to be taking her off the BiPAP shortly. Objective - Vital Signs Vital signs: Vital Signs Temp 98.4 F 03/23/19 12:00 Pulse 90 03/23/19 13:05 Resp 28 H 03/23/19 13:05 BP 116/66 03/23/19 13:05 Pulse Ox 96 03/23/19 13:05 Intake & Output 03/22/19 03/23/19 03/23/19 18:59 06:59 18:59 Intake Total 778 736 353 Output Total 2540 2300 1775 Balance -9590 -8811 -3422 Weight 124 kg 120.1 kg 120.1 kg Intake: IV 778 736 253 IV Fluid Continuation 1, 545 50 000 ml @ 0 mls/hr IV .[facility] Rx#:[id number] Sodium Chloride 0.9% 1, 550 100 000 ml @ 50 mls/hr IV . Q20H [facility] Rx#:[id number] cefTRIAXone 1 gm In 50 Sodium Chloride 0.9% 50 ml @ 100 mls/hr IVPB Q24HR [facility] Rx#:[id number] levETIRAcetam IV 500 mg 200 100 100 In Sodium Chloride 0.9% 100 ml @ 400 mls/hr IVPB Q8HR [facility] Rx#:[id number] pressure bag 33 36 3 Intake, IV Titration 0 100 Amount Norepinephrine 4 mg In 0 Sodium Chloride 0.9% 250 ml @ 0.05 MCG/KG/MIN 22. 727 mls/hr IV .[id number] [facility] Rx#:[id number] Potassium Chloride 10 meq 100 In Water For Injection 1 100ml.bag @ 100 mls/hr IVPB Q1H [facility] Rx#: [id number] Output: Urine 2540 2300 1775 Other: Voiding Method Indwelling Catheter Indwelling Catheter Indwelling Catheter ABP, PAP, CO, CI - Last Documented Arterial Blood Pressure 153/88 - Exam Head normocephalic Neck supple Lungs diminished bilaterally currently on BiPAP Heart regular rate and rhythm S1-S2, no rub or gallop Abdomen is soft nontender nondistended positive bowel sounds no hepatosplenomegaly Extremities +1 lower and upper extremity edema bilaterally Neuro confused and agitated - Labs CBC & Chem 7: 03/23/19 04:45 03/23/19 04:45 Labs: Abnormal Lab Results - Last 24 Hours (Table) 03/23/19 03/23/19 Range/Units 04:45 04:45 RBC 2.87 L (3.80-5.40) m/uL Hgb 8.4 L (11.4-16.0) gm/dL Hct 26.3 L (34.0-46.0) % Carbon Dioxide 32 H (22-30) mmol/L BUN 28 H (7-17) mg/dL Creatinine 1.14 H (0.52-1.04) mg/dL Total Protein 5.2 L (6.3-8.2) g/dL Albumin 2.9 L (3.5-5.0) g/dL Microbiology - Last 24 Hours (Table) 03/17/19 22:00 Blood Culture - Preliminary Blood No Growth after 120 hours 03/17/19 20:16 Blood Culture - Preliminary Blood No Growth after 120 hours Assessment and Plan Assessment: 1. Third-degree heart block, symptomatic bradycardic. Status post pacemaker placement. Remains in normal sinus rhythm 2. Acute hypoxic and hypercapnic respiratory failure requiring mechanical ventilation. Extubated on 03/21/2019. He currently on BiPAP support. Pulmonary following 3. Possible Seizures. Patient is maintained on Keppra. Keppra has been increased to 500 IV 3 times a day. Head CT completed showing no definitive acute process. Keppra level 39.8. 4. Acute kidney injury secondary to ATN secondary to hypotension hemodynamically instability. Nephrology services are following. Creatinine 1.14 5. Hypotension related to pericardial. Off of Levophed 6. Urinary tract infection. UA positive for leukocyte esterase. Urine culture ordered. Patient currently maintained on Rocephin 7. History of COPD. 8. Previous episode of complete heart block in November 2018 which was transient 9. Underlying history of seizure disorder which she is maintained on Keppra. EEG completed. Results pending Keppra level 39.8 10. History of depression and anxiety 11. History of obstructive sleep apnea 12. History of chronic cor pulmonale 13. History of brain meningioma. Maintained on dexamethasone 14. Lactic acidosis. Initial lactic acid 3.8. Repeat 1.3. Patient positive for UTI. Patient currently maintained on Rocephin 15. Mild volume overload noted on chest x-ray. Nephrology started Lasix 40 mg IV twice a day 16. Anemia. No active bleeding. Iron studies ordered by nephrology and hemoglobin 8.4 CODE STATUS DO NOT RESUSCITATE DVT prophylaxis Lovenox. GI prophylaxis Protonix I performed an examination of the patient and discussed their management with the physician Social Media Specialist. I have reviewed the Physician Social Media Specialist's notes and agree with the documented findings and plan of care
--- NOTE | 2019-03-23 17:04 | PN ---
PROGRESS NOTE The patient is admitted to hospital with complete heart block and initially underwent a temporary pacemaker and subsequently underwent a permanent pacemaker. Since she has had the pacemaker, she has remained in sinus rhythm. She has since been extubated. Continues to have some mild respiratory insufficiency and she has just been changed to NO CODE this morning. She is on Lasix 40 mg IV q.12h, Toprol-XL 50 mg daily. EXAM: Rate is 86 beats per minute, blood pressure is 141/69, respirations 18. Chest exam reveals diminished air entry at the bases. Heart exam reveals first and second heart sounds. No gallop. No murmur. No rub. Exam of extremities reveals bilateral 1+ edema. LAB: Show a hemoglobin of 8.4, platelet count is 309, creatinine is 1, BUN is 28. ASSESSMENT: 1. Complete heart block status post permanent pacemaker. 2. Hypertension. 3. Respiratory insufficiency. PLAN: Continue with current medications. I will switch the Lasix to p.o. in the transfer out of ICU. MMODL / ARMAANN: [id number] /
[2019-03-23 17:29] LABS: Glucose,Whole Blood 138 mg/dL (75-99)
[2019-03-23] MEDS: SODIUM CHLORIDE 0.9% 1,000 ML IV SCH (20:45)
[2019-03-23 20:50] LABS: Glucose,Whole Blood 80 mg/dL (75-99)
[2019-03-24] MEDS: IPRATROPIUM-ALBUTEROL 3 ML NEB INHALATION SCH ×6 (03:06→23:52)
[2019-03-24 04:29] LABS: Basophils % (A) 0 %; Eosinophils # (A) 0.1 k/uL (0-0.7); Eosinophils % (A) 2 %; HCT 29.2 % (34.0-46.0); HGB 9.2 gm/dL (11.4-16.0); Lymphocytes # (A) 1.1 k/uL (1.0-4.8); Lymphocytes % (A) 12 %; MCH 29.4 pg (25.0-35.0); MCHC 31.5 g/dL (31.0-37.0); MCV 93.4 fL (80.0-100.0); Mean Platelet Volume 6.9; Monocytes # (A) 0.7 k/uL (0-1.0); Monocytes % (A) 8 %; Neutrophils # (A) 7.2 k/uL (1.3-7.7); Neutrophils % (A) 77 %; Platelet Count 268 k/uL (150-450); RBC 3.12 m/uL (3.80-5.40); WBC 9.3 k/uL (3.8-10.6)
[2019-03-24 04:38] LABS: Albumin 3.2 g/dL (3.5-5.0); Potassium 3.7 mmol/L (3.5-5.1); Total Bilirubin 0.4 mg/dL (0.2-1.3); Total Protein 5.8 g/dL (6.3-8.2)
[2019-03-24 07:09] LABS: Glucose,Whole Blood 80 mg/dL (75-99)
[2019-03-24] MEDS: POTASSIUM CHLORIDE 10 MEQ in WATER FOR INJECTION 1 100ML.BAG IVPB SCH ×2 (07:11→09:36)
[2019-03-24] MEDS: INSULIN ASPART (NovoLOG) 100 UNIT/ML VIAL SQ SCH ×4 (07:12→21:14)
[2019-03-24] MEDS: levETIRAcetam IV 500 MG in SODIUM CHLORIDE 0.9% 100 ML IVPB SCH ×2 (08:16→15:56)
[2019-03-24] MEDS: ACETAMINOPHEN TAB 325 MG TAB PO PRN (08:17)
[2019-03-24] MEDS: DEXAMETHASONE SOD PHOSPHATE 4 MG/ML 1 ML VIAL IV SCH (08:17)
[2019-03-24] MEDS: FUROSEMIDE 10 MG/ML 2 ML VIAL IV SCH ×2 (08:17→21:17)
[2019-03-24] MEDS: PANTOPRAZOLE 40 MG/10 ML VIAL IVP SCH (08:17)
[2019-03-24] MEDS: DULoxetine HCL 30 MG CAPSULE.DR PO SCH (08:18)
[2019-03-24] MEDS: ENOXAPARIN 40 MG/0.4 ML SYRINGE SQ SCH (08:19)
--- NOTE | 2019-03-24 08:23 | P.PN ---
Subjective Progress Note Date: 03/24/19 Principal diagnosis: Complete heart block This is a 73-year-old white female patient with multiple comorbid conditions, with previous history of complete heart block requiring temporary pacemaker November 2018. Patient at that time clinically improved, and did not require placement of a permanent pacemaker. On patient was brought to the hospital by her daughter for weakness, lethargy, on the way to the hospital patient had a seizure. Does have underlying history of seizure disorder, currently on Keppra. Other medical history includes COPD/asthma, diabetes melli tus, chronic congestive heart failure, hypertension, osteoarthritis, sleep apnea, anxiety, depression, smoking history. Patient is on dexamethasone 4 history of a meningioma, or some type of a benign brain lesion, the details are not available to us. On arrival to the hospital she was found to be bradycardic with a heart rate in the 30s and the rhythm was a complete heart block. Dopamine was started however the right did not improve, she was symptomatic, was also hypotensive with systolic blood pressure ranging from 60s to 80s. Fluid challenge was given, 2-1/2 L of IV normal saline. She was taken to the animal laboratory technician, where a transvenous pacemaker was inserted via right groin, right femoral art line was inserted. Patient returned to the intensive care unit, on the 100% nonrebreather, however her respiratory status continued to decline, she was increasingly lethargic, blood gas showed pO2 of 56, pCO2 of 77, and pH of 7.25, and this was done and FiO2 of 40%, BiPAP support was initially attempted, however patient failed. Patient was intubated, placed on mechanical ventilator. This morning she seen in the intensive care unit, sedated and intubated on mechanical ventilator, and settings are assist-control mode with a rate of 20, tidal at 450, FiO2 of 40%, and PEEP of 5. This morning blood gases showed pO2 of 156, pCO2 of 37, pH is 7.47, on those settings. IV 0.9 normal saline at a rate of 20, Diprivan and is at 35 mics per kilo per minute, and levo fed is at 7 mics per minute. Dopamine had been discontinued as the patient had no response to it. She is currently being paced at a rate of 60 BPM transvenous pacemaker. It showed bibasilar infiltrates, suspected small bilateral pleural effusions, atelectasis along the minor fissure on the right, patient has a chronic elev ation of the left hemidiaphragm. This morning his blood work showed white blood cell count of 13.8, hemoglobin of 9.1, serum sodium is 134, potassium is 3.9, chloride is 99, CO2 was 26, B1 is 24, creatinine is 1.61, TSH was within normal limits at 1.470, lactic acid was 1.3 from 3.8. Blood cultures, urine culture, urine cultures have been sent. Emiliano antibiotic coverage in the form of Rocephin. On 03/19/2019 she is seen in follow-up in the intensive care unit, she remains sedated, intubated on mechanical ventilator, current vent settings are assist control mode of ventilation with a rate of 16, tidal vital 450, FiO2 35% and PEEP of 5. This morning blood gases were reviewed, and showed a pO2 of 107, pCO2 40, pH of 7.42, this was done and FiO2 of 35%, will drop down the FiO2 to 30%. Today's chest x-ray has been reviewed, and shows bibasilar atelectasis, and small pleural effusions, patient has been weaned off the levo fed drip, currently on Diprivan at 35 mics per kilo per minute, and 0.9 normal saline at a rate of 20 ML per hour, we'll give the patient of dose of IV Lasix 40 mg. Today's lab work has been reviewed, and showed a white blood cell count of 12.5, hemoglobin of 8.9, platelet count is 346, sodium is 135, potassium is 4.0, chloride is 103, renal profile is stable, B1 is 27, creatinine is 1.87. Urine output is 30-40 mL per hour. Blood and sputum cultures have been negative thus far. Intact tympanic coverage in the form of Rocephin, patient has had no fevers. She remains pacemaker dependent, and underlying rhythm is asystole, continues with the TVP in the right groin, and the pacing at a rate of 60 BPM. On 03/20/2019 patient seen in follow-up in the intensive care unit, she remains intubated, and on mechanical ventilator, she returned from placement of permanent pacemaker, tolerated procedure well, following the procedure patient was given a sedation holiday, patient was quite agitated, is every sedated, and she remains on assist control mode of ventilation with a rate of 16, tidal volume of 450, FiO2 of 100%, and PEEP of 5. This morning's chest x-ray showed bibasilar atelectasis, small pleural effusions. IV 0.9 normal saline at a rate of 20 ML per hour, no other drips. This morning's blood gas was reviewed, showed pO2 of 91, pCO2 41, pH of 7.41, this was done and FiO2 of 35%, this morning's blood work has been reviewed. Vital signs are stable, patient is afebrile, nonoliguric. Antibiotic coverage in the form of Rocephin continues, patient did receive clindamycin per cardiology for antimicrobial prophylaxis, blood and sputum cultures show no growth. On 03/23/2019 patient is seen in follow-up in intensive care unit, she is lethargic, arousable to verbal stimuli, she remains on BiPAP support with pressures of 12 with 6 and FiO2 of 35%, she was successfully extubated on 03/21/2019, after being intubated on 03/17/2019. Patient is status post permanent pacemaker placement for complete heart block on 03/20/2019, left upper chest incision is clean dry and intact, covered with surgical dressing, incisions clean dry and intact, soft, patient is currently in sinus rhythm with a controlled rate. Patient was on oral Lasix 20 mg twice daily, chest x-ray shows bilateral pleural effusions, cardiomegaly, diffuse interstitial changes consistent with fluid volume overload and congestive heart failure. Renal profile continues to improve, with creatinine down to 1.14, and BUN at 28, nephrology is following, and patient is been switched to IV Lasix per nephrology at 40 mg twice a day. Lung sounds are diminished, with diffuse crackles the bottoms, IV normal saline at a rate of KVO, right-sided groin venous and arterial catheters are in place, which probably should be discontinued. Hemodynamically patient is stable, she has diffuse anasarca, diffuse swelling in upper and lower extremities, in the pretibial areas patient has cellulitis type changes, and the skin is reddened and warm. Culture results have been reviewed, and remain negative, no cough or congestion. Denies any acute distress, patient is somnolent, but she is able to answer simple questions. On 03/24/2018 patient seen in follow-up in intensive care unit, she is awake and alert, she is oriented to person, place and the month. Much more awake today, c onversant, she is wearing BiPAP intermittently, she has a productive cough, bringing up yellowish colored sputum at times. But denies any worsening dyspnea, lung sounds are diminished, with bibasilar crackles. No new chest x- ray today, today's lab work has been reviewed, white blood cell count is 9.3, hemoglobin is 9.2, sodium is 142, potassium 3.7, chloride is 99, CO2 was 35, BUN is 27 creatinine 0.9. She is on IV diuretics, and she is in negative for thousand mL fluid balance over the last 24 hours. She is thirsty and hungry, she is asking for oral diet, we asked speech therapy to evaluate the patient's swallowing. Otherwise she is hemodynamically stable, IV 0.9 normal saline at a rate of 20 ML per hour, no other drips. BiPAP support with pressures of 12/6 on FiO2 of 35%. Blood and sputum cultures are negative. Objective - Vital Signs Vital signs: Vital Signs Temp 98.8 F 03/24/19 04:00 Pulse 74 03/24/19 07:23 Resp 18 03/24/19 07:00 BP 117/64 03/24/19 07:00 Pulse Ox 96 03/24/19 07:00 Intake & Output 03/23/19 03/24/19 03/24/19 18:59 06:59 18:59 Intake Total 623 240 20 Output Total 1977 2205 45 Balance -2101 Weight 120.1 kg Intake: IV 523 240 20 Sodium Chloride 0.9% 1, 270 240 20 000 ml @ 50 mls/hr IV . Q20H [facility] Rx#:[id number] cefTRIAXone 1 gm In 50 Sodium Chloride 0.9% 50 ml @ 100 mls/hr IVPB Q24HR [facility] Rx#:[id number] levETIRAcetam IV 500 mg 200 In Sodium Chloride 0.9% 100 ml @ 400 mls/hr IVPB Q8HR [facility] Rx#:[id number] pressure bag 3 Intake, IV Titration 100 Amount Potassium Chloride 10 meq 100 In Water For Injection 1 100ml.bag @ 100 mls/hr IVPB Q1H [facility] Rx#: [id number] Output: Urine 2725 2205 45 Other: Voiding Method Indwelling Catheter Indwelling Catheter # Bowel Movements 1 ABP, PAP, CO, CI - Last Documented Arterial Blood Pressure 153/88 - Exam GENERAL EXAM: Obese 73-year-old white female, awake and alert, oriented 2 on BiPAP support at 12/6 and 35% FiO2, comfortable in no apparent distress. Patient has diffuse anasarca, swelling and upper and lower extremities HEAD: Normocephalic/atraumatic. EYES: Normal reaction of pupils, equal size. Conjunctiva pink, sclera white. NOSE: Clear with pink turbinates. THROAT: No erythema or exudates. NECK: No masses, no JVD, no thyroid enlargement, no adenopathy. CHEST: No chest wall deformity. Symmetrical expansion. Left upper chest incisions clean dry and intact, soft, covered with surgical dressing. LUNGS: Equal air entry with no crackles, wheeze, rhonchi or dullness. Diminished Breath sounds at the bases CVS: Irregular rate and rhythm, normal S1 and S2, no gallops, no murmurs, no rubs. ABDOMEN: Soft, nontender. No hepatosplenomegaly, normal bowel sounds, no guarding or rigidity. EXTREMITIES: No clubbing, 1+ lower extremity and upper extremity edema, skin is fragile, bruised, pretibial areas of the skin are reddened and warm, no cyanosis, 2+ pulses and upper and lower extremities. MUSCULOSKELETAL: Muscle strength and tone normal. Interval removal of the right femoral transvenous pacemaker, SPINE: No scoliosis or deformity SKIN: No rashes CENTRAL NERVOUS SYSTEM: Lethargic, but arousable No focal deficits, tone is normal in all 4 extremities. - Labs CBC & Chem 7: 03/24/19 03:58 03/24/19 03:58 Labs: Abnormal Lab Results - Last 24 Hours (Table) 03/23/19 03/23/19 03/24/19 Range/Units 04:45 17:17 03:58 RBC 3.12 L (3.80-5.40) m/uL Hgb 9.2 L (11.4-16.0) gm/dL Hct 29.2 L (34.0-46.0) % Carbon Dioxide (22-30) mmol/L BUN (7-17) mg/dL Glucose (74-99) mg/dL POC Glucose (mg/dL) 138 H (75-99) mg/dL Iron 35 L (50-170) ug/dL Total Protein (6.3-8.2) g/dL Albumin (3.5-5.0) g/dL 03/24/19 Range/Units 03:58 RBC (3.80-5.40) m/uL Hgb (11.4-16.0) gm/dL Hct (34.0-46.0) % Carbon Dioxide 35 H (22-30) mmol/L BUN 27 H (7-17) mg/dL Glucose 70 L (74-99) mg/dL POC Glucose (mg/dL) (75-99) mg/dL Iron (50-170) ug/dL Total Protein 5.8 L (6.3-8.2) g/dL Albumin 3.2 L (3.5-5.0) g/dL Microbiology - Last 24 Hours (Table) 03/17/19 22:00 Blood Culture - Final Blood No Growth after 144 hours 03/17/19 20:16 Blood Culture - Final Blood No Growth after 144 hours Assessment and Plan Plan: Assessment: #1. Acute hypoxemic and hypercapnic respiratory failure related to hypoventilation. Chest x-ray showed bibasilar infiltrates, small bilateral pleural effusions. Patient has been intubated on 03/17/2019, and extubated on 03/21/2019. Post extubation required BiPAP support. #2. Third-degree heart block, symptomatic bradycardia, status post transvenous pacemaker placement and today on 03/20/2019 patient underwent placement of the permanent pacemaker #3. Breakthrough seizures, despite Keppra, likely related to hypoperfusion #4. Mild lactic acidosis, possibly related to hypotension related to bradycardia and complete heart block, rule out sepsis, cultures are pending, patient is covered with empiric antibiotic coverage. Improved with hydration #5. Acute kidney injury secondary to ATN, and proved #6. Hypotension related to bradycardia, improved, patient has been weaned off vasopressor support as off 03/19/2019 #7. History of COPD, with a baseline FEV1 of 65% of predicted, patient has a component of restrictive and obstructive pulmonary defect. #8. Previous episode of complete heart block in November 2018 which was transient, resolved on its own, and patient did not require placement of a permanent pacemaker, requiring just a temporary transvenous pacemaker. Heart catheterization was performed at that time on 11/25/2018 revealing normal coronary arteries. Last echocardiogram showed preserved left ventricular systolic function with an EF of 50-55%, mild aortic stenosis with peak/mean gradient across the aortic valve of 19.9 mmHg/10.5 mmHg, no evidence of pulmonary hypertension, there was mild tricuspid regurgitation #9. Elevated d-dimer, nonspecific #10. Morbid obesity #11. Former nicotine dependence history Plan: We'll continue with IV diuretics, nebulized bronchodilators, BiPAP support as needed. Hemodynamically remains stable. No acute issues overnight, patient remained in the intensive care unit today. Speech therapy evaluation, if she passes, will start oral diet per speech therapy recommendation. I performed a history & physical examination of the patient and discussed their management with my nurse practitioner, Maggie Morin. I reviewed the nurse practitioner's note and agree with the documented findings and plan of care. Lung sounds are positive for diminished sounds. The findings and the impression was discussed with the patient. I attest to the documentation by the nurse practitioner. Time with Patient: Less than 30
[2019-03-24] MEDS: METOPROLOL SUCCINATE (ER) 50 MG TAB.ER.24H PO SCH (09:35)
--- NOTE | 2019-03-24 09:41 | P.PN ---
Subjective Patient is seen in follow-up for acute kidney injury. Her baseline creatinine is 1. It peaked at 1.89 this admission and is down to 0.99 this morning. She is maintained on Lasix 40 mg IV twice daily. She is nonoliguric. Echocardiogram revealed ejection fraction of 45-50%. She is awake and alert. Denies chest pain or shortness of breath. Hemodynamically stable. Vital signs are stable. General: The patient appeared well nourished and normally developed. Intubated. HEENT: Head exam is unremarkable. Neck is without jugular venous distension. LUNGS: Breath sounds decreased. HEART: Rate and Rhythm are regular. First and second heart sounds normal. No murmurs, rubs or gallops. ABDOMEN: Abdominal exam reveals normal bowel sounds. Non-tender and non- distended. No evidence of peritonitis. EXTREMITITES: Trace edema. Objective - Vital Signs Vital signs: Vital Signs Temp 97.4 F L 03/24/19 08:00 Pulse 81 03/24/19 09:00 Resp 20 03/24/19 09:00 BP 111/70 03/24/19 09:00 Pulse Ox 99 03/24/19 09:00 Intake & Output 03/23/19 03/24/19 03/24/19 18:59 06:59 18:59 Intake Total 623 240 170 Output Total 2725 2205 80 Balance -2101 90 Weight 120.1 kg Intake: IV 523 240 170 Sodium Chloride 0.9% 1, 270 240 70 000 ml @ 50 mls/hr IV . Q20H [facility] Rx#:[id number] cefTRIAXone 1 gm In 50 Sodium Chloride 0.9% 50 ml @ 100 mls/hr IVPB Q24HR [facility] Rx#:[id number] levETIRAcetam IV 500 mg 200 100 In Sodium Chloride 0.9% 100 ml @ 400 mls/hr IVPB Q8HR [facility] Rx#:[id number] pressure bag 3 Intake, IV Titration 100 Amount Potassium Chloride 10 meq 100 In Water For Injection 1 100ml.bag @ 100 mls/hr IVPB Q1H [facility] Rx#: [id number] Output: Urine 2725 2205 80 Other: Voiding Method Indwelling Catheter Indwelling Catheter Indwelling Catheter # Bowel Movements 1 ABP, PAP, CO, CI - Last Documented Arterial Blood Pressure 153/88 - Labs CBC & Chem 7: 03/24/19 03:58 03/24/19 03:58 Labs: Abnormal Lab Results - Last 24 Hours (Table) 03/23/19 03/23/19 03/24/19 Range/Units 04:45 17:17 03:58 RBC 3.12 L (3.80-5.40) m/uL Hgb 9.2 L (11.4-16.0) gm/dL Hct 29.2 L (34.0-46.0) % Carbon Dioxide (22-30) mmol/L BUN (7-17) mg/dL Glucose (74-99) mg/dL POC Glucose (mg/dL) 138 H (75-99) mg/dL Iron 35 L (50-170) ug/dL Total Protein (6.3-8.2) g/dL Albumin (3.5-5.0) g/dL 03/24/19 Range/Units 03:58 RBC (3.80-5.40) m/uL Hgb (11.4-16.0) gm/dL Hct (34.0-46.0) % Carbon Dioxide 35 H (22-30) mmol/L BUN 27 H (7-17) mg/dL Glucose 70 L (74-99) mg/dL POC Glucose (mg/dL) (75-99) mg/dL Iron (50-170) ug/dL Total Protein 5.8 L (6.3-8.2) g/dL Albumin 3.2 L (3.5-5.0) g/dL Microbiology - Last 24 Hours (Table) 03/17/19 22:00 Blood Culture - Final Blood No Growth after 144 hours 03/17/19 20:16 Blood Culture - Final Blood No Growth after 144 hours Assessment and Plan Plan: Assessment: 1. Acute kidney injury secondary to ATN secondary to hypotension and hemodynamic instability. Creatinine peaked at 1.89 this admission and is 0.99 today. Baseline creatinine near 1. No proteinuria on UA. 2. Bradycardia and complete heart block status post permanent pacemaker placement on March 20. 3. Mild volume overload. 4. Lactic acidosis secondary to hypotension. Improved with IV hydration. 5. Hypotension currently off Levophed. Resolved. 6. Acute hypoxic and hypercapnic respiratory failure. Currently on NC. 7. Possible seizures. Maintained on Keppra. 8. Hypokalemia secondary to diuresis. 9. Anemia. Iron deficiency noted. No active bleeding noted. Plan: Maintain Lasix 40 mg IV twice daily. IV iron 3 doses. First dose today. Potassium replaced per protocol. Continue to monitor renal function and urine output.
[2019-03-24] MEDS: SODIUM FERRIC GLUCONAT-SUCROSE 125 MG in SODIUM CHLORIDE 0.9% 100 ML IVPB SCH (10:48)
[2019-03-24] MEDS: FOLIC ACID 1 MG TAB PO SCH (11:05)
--- NOTE | 2019-03-24 11:19 | CDI ---
Documentation Clarification Form Date: 03/24/2019 11:03:57 AM From: Genie CarmonaABNER, CCDS Admit Date: 03/17/2019 8:56:00 PM Patient Name: Isabel Keene Visit Number: [id number] Discharge Date: ATTENTION: The Clinical Documentation Specialists (CDI) and [facility] Coding Staff appreciate your assistance in clarifying documentation. Please respond to the clarification below the line at the bottom and electronically sign. The CDI & [facility] Coding staff will review the response and follow-up if needed. Please note: Queries are made part of the Legal Health Record. If you have any questions, please contact the author of this message via ITS. Dr. Kimberley Sharif: Per the 03/23 attending progress note: "Chest x-ray showed bilateral pleural effusions, cardiomegaly, diffuse interstitial changes consistent with fluid volume overload and congestive heart failure." Has trace to 1+ edema to extremities. History: CHF, COPD, DM, Hypertension, Sleep apnea, Benign brain tumor w/water. Clinical Indicators: Patient presented to the ER with complaints of unresponsiveness possible seizure per daughter. Per ER report patient was in the car with her daughter when she had a seizure episode lasting approximately 3 minutes. It is noted patient was bradycardic. Intubated in ER. Found to be in complete heart block. VS: P 29*, R 16 - 20; BP 107/71, PO 98 3Lnc BNP: 265 ECHO 03/18: Borderline concentric LVH. Left ventricular systolic function mildly impaired w/EF 45-50%. Right ventricle mild-mod enlarged, Mild MR/TR, mild pulmonary hypertension. Chest X Ray 03/18 Bibasilar infiltrates, Suspected small bilateral pleural effusions. Cardiomegaly. Treatment: Intubated in ER, Temporary pacemaker inserted by cardiology. (Perm Pacemaker inserted on 03/20). IV Kcl, IV MagSulf, IV fluid bolus, IV fluid rate 100, IV Dopamine HCI/Dextrose, IV Rocephin, IV Dilaudid, IV Lasix started 03/18. In your professional opinion, can you please clarify the acuity and type of CHF if known? Systolic Heart Failure: o Acute o Chronic o Acute on Chronic Diastolic Heart Failure: o Acute o Chronic o Acute on Chronic Systolic & Diastolic Heart Failure: o Acute o Chronic o Acute on Chronic Heart Failure Unable to Determine Other, please specify (Last Revision: March 2018) acute on chronic systolic heart failure MTDD
--- NOTE | 2019-03-24 11:20 | P.PN ---
Subjective Progress Note Date: 03/24/19 This is a 73-year-old female patient of Dr. Loomis. Patient presented to the ER with complaints of unresponsiveness possible seizure per daughter. Per ER report patient was in the car with her daughter when she had a seizure episode lasting approximately 3 minutes. Patient then came to inpatient was brought to the ER. It is noted patient was bradycardic. 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 Patient was here recently and treated for acute COPD exacerbation. Patient had a prolonged admission in December in which she had a previous pacer placed at that time. EKG showing a complete heart block with a rate 29. 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 Upon returning to the ICU patient went into respiratory distress and required intubation. Patient is also currently on pressure support medication. Patient's creatinine 1.61 and bun 24. Patient has had very little urine output. Patient has been given a total of 120 of Lasix. Critical care management are following. Patient currently has TVP in place. Patient remains in the intensive care unit. On 03/19/2019 patient remains on mechanical ventilation in the intensive care unit. Patient remains on small dose of Levophed. Per nursing staff patient is asystole under TVP. EEG has been ordered. Head CT completed showing no acute process. Keppra has been ordered. Patient currently on Keppra 500 3 times a day. Critical care cardiology and nephrology services are following. Patient's urine output has improved. 03/20/2018 patient is status post dual-chamber pacemaker placement. Patient remains on mechanical ventilation and sedation at this time. Patient has been off pressure support medication per 24 hours. Urine output has improved. Cr eatinine is trending down. Keppra level is therapeutic at 39.8 03/23/2019 patient remains in the ICU. She's currently on eye BiPAP. She was extubated on 03/21/2019. She had pacemaker placement for complete heart block on 03/20/2019. She is currently in sinus rhythm rate controlled. She is on Keppra for a possible seizure. She's had no further seizures. Chest x-ray showed bilateral pleural effusions, cardiomegaly, diffuse interstitial changes consistent with fluid volume overload and congestive heart failure. Patient was given IV Lasix 40 mg twice a day by nephrology. Patient is confused. She is crying out "help me help me." Discussed with nursing staff to be taking her off the BiPAP shortly. On 03/24/2019 patient is currently resting comfortably in bed. Patient is on nasal cannula. Patient reports that she feels improved. Speech evaluation to assess for patient swallowing. Patient is maintained on IV Lasix 40 mg every 12 hours per nephrology. At this time patient denies chest pain or shortness breath. Patient denies nausea vomiting or diarrhea. Patient denies any urinary burning or frequency. Objective - Vital Signs Vital signs: Vital Signs Temp 97.4 F L 03/24/19 08:00 Pulse 85 03/24/19 11:00 Resp 21 03/24/19 11:00 BP 126/73 03/24/19 11:00 Pulse Ox 99 03/24/19 11:00 Intake & Output 03/23/19 03/24/19 03/24/19 18:59 06:59 18:59 Intake Total 623 240 430 Output Total 2725 2205 707 Balance -2101 -1964 - Weight 120.1 kg Intake: IV 523 240 230 .9 kvo 60 Sodium Chloride 0.9% 1, 270 240 70 000 ml @ 50 mls/hr IV . Q20H [facility] Rx#:[id number] cefTRIAXone 1 gm In 50 Sodium Chloride 0.9% 50 ml @ 100 mls/hr IVPB Q24HR [facility] Rx#:[id number] levETIRAcetam IV 500 mg 200 100 In Sodium Chloride 0.9% 100 ml @ 400 mls/hr IVPB Q8HR [facility] Rx#:[id number] pressure bag 3 Intake, IV Titration 100 200 Amount Potassium Chloride 10 meq 100 In Water For Injection 1 100ml.bag @ 100 mls/hr IVPB Q1H [facility] Rx#: [id number] Potassium Chloride 10 meq 100 In Water For Injection 1 100ml.bag @ 100 mls/hr IVPB Q1H [facility] Rx#: [id number] Sodium Ferric Gluconat- 100 Sucrose 125 mg In Sodium Chloride 0.9% 100 ml @ 100 mls/hr IVPB DAILY [facility] Rx#:[id number] Output: Urine 2725 2205 707 Other: Voiding Method Indwelling Catheter Indwelling Catheter Indwelling Catheter # Bowel Movements 1 ABP, PAP, CO, CI - Last Documented Arterial Blood Pressure 153/88 - Exam Head normocephalic Neck supple Lungs diminished bilaterally with expiratory wheezing Heart regular rate and rhythm S1-S2, no rub or gallop Abdomen is soft nontender nondistended positive bowel sounds no hepatosplenomegaly Extremities no edema Neuro alert and calm. Follows commands - Labs CBC & Chem 7: 03/24/19 03:58 03/24/19 03:58 Labs: Abnormal Lab Results - Last 24 Hours (Table) 03/23/19 03/23/19 03/24/19 Range/Units 04:45 17:17 03:58 RBC 3.12 L (3.80-5.40) m/uL Hgb 9.2 L (11.4-16.0) gm/dL Hct 29.2 L (34.0-46.0) % Carbon Dioxide (22-30) mmol/L BUN (7-17) mg/dL Glucose (74-99) mg/dL POC Glucose (mg/dL) 138 H (75-99) mg/dL Iron 35 L (50-170) ug/dL Total Protein (6.3-8.2) g/dL Albumin (3.5-5.0) g/dL 03/24/19 Range/Units 03:58 RBC (3.80-5.40) m/uL Hgb (11.4-16.0) gm/dL Hct (34.0-46.0) % Carbon Dioxide 35 H (22-30) mmol/L BUN 27 H (7-17) mg/dL Glucose 70 L (74-99) mg/dL POC Glucose (mg/dL) (75-99) mg/dL Iron (50-170) ug/dL Total Protein 5.8 L (6.3-8.2) g/dL Albumin 3.2 L (3.5-5.0) g/dL Microbiology - Last 24 Hours (Table) 03/17/19 22:00 Blood Culture - Final Blood No Growth after 144 hours 03/17/19 20:16 Blood Culture - Final Blood No Growth after 144 hours Assessment and Plan Assessment: 1. Third-degree heart block, symptomatic bradycardic. Status post pacemaker placement. Patient remains normal sinus rhythm 2. Acute hypoxic and hypercapnic respiratory failure requiring mechanical ventilation. Extubated for 2018. Patient is currently on BiPAP when necessary pulmonary services are following 3. Possible Seizures. Patient is maintained on Keppra. Keppra has been increased to 500 IV 3 times a day. Head CT completed showing no definitive acute process. Keppra level 39.8. 4. Acute kidney injury secondary to ATN secondary to hypotension hemodynamically instability. Nephrology services are following. Patient received 120 of Lasix. Urine output has improved. Creatinine is improving to 1.59 5. Hypotension related to hypotension. Resolved patient off Levophed 6. Urinary tract infection. UA positive for leukocyte esterase. Urine culture ordered. Patient currently maintained on Rocephin 7. History of COPD. 8. Previous episode of complete heart block in November 2018 which was transient 9. Underlying history of seizure disorder which she is maintained on Keppra. EEG completed. Results pending Keppra level 39.8 10. History of depression and anxiety 11. History of obstructive sleep apnea 12. History of chronic cor pulmonale 13. History of brain meningioma. Maintained on dexamethasone 14. Lactic acidosis. Initial lactic acid 3.8. Repeat 1.3. Patient positive for UTI. Patient currently maintained on Rocephin 15. Mild bile overload noted on chest x-ray. Nephrology following maintained on Lasix 40 mg IV twice a day 16. Iron deficiency Anemia. No signs of active bleeding. Studies ordered by nephrology. Current hemoglobin 9.2. IV iron 3 days ordered per nephrology DVT prophylaxis Lovenox. GI prophylaxis Protonix Critical care, cardiology and nephrology services following Psychiatry service is consulted due to altered mental status I performed an examination of the patient and discussed their management with the Nurse Practitioner. I have reviewed the Nurse Practitioner's notes and agree with the documented findings and plan of care
[2019-03-24 11:36] LABS: Iron Saturation 12.18 (12.00-45.00)
[2019-03-24 11:41] LABS: Glucose,Whole Blood 111 mg/dL (75-99)
--- NOTE | 2019-03-24 11:48 | PN ---
PROGRESS NOTE Isabel is a 73-year-old lady with complete heart block. She currently has a permanent pacemaker in. The patient is doing well and is free of symptoms. Her respiratory status has improved and her mental status is improved. Currently on nebulizers, antibiotics, Lasix 40 q.12, Toprol. On exam, comfortable at rest. Heart rate is 81 beats per minute. Blood pressure is 111/78. O2 sat is 99% on 5 L. There is no jugular venous distention. Chest exam reveals diminished air entry at the bases. Heart exam reveals first and second heart sounds. No gallop. Examination of the extremities did not reveal any edema. ASSESSMENT: Complete heart block, status post permanent pacemaker. PLAN: Patient is doing well. She will continue with current medications. MMODL / IJN: [id number] /
[2019-03-24 17:12] LABS: Glucose,Whole Blood 108 mg/dL (75-99)
[2019-03-24 21:24] LABS: Glucose,Whole Blood 95 mg/dL (75-99)
--- NOTE | 2019-03-24 23:49 | CONS ---
CONSULTATION PSYCHIATRIC CONSULTATION: DATE OF SERVICE: 03/24/2019 PURPOSE FOR CONSULTATION: Evaluate for altered mental status. HISTORY OF PRESENTING ILLNESS: The patient was admitted due to an episode of unresponsiveness while she was a passenger in the car with her daughter. Presumably she had a seizure lasting about 3 minutes. In addition, the patient has a history of asthma, heart failure, COPD, diabetes, hypertension, osteoporosis, benign brain tumor and depression. Psychiatric medicines the patient has been on include Cymbalta 30 mg a day, Wellbutrin 100 mg twice a day and Xanax 0.25 mg twice a day as needed. She is also on Keppra for seizures. During this hospitalization, the patient was continued on Cymbalta 30 mg a day as her only psychotropic. The patient has been on mechanical ventilation with sedation with propofol. On 03/21 she was weaned off propofol and extubated. Followup on 03/21 indicated that the patient was breathing spontaneously. She tolerated extubation well. On 03/22 the patient was assessed as being agitated. According to Nursing, she was very restless, and it was difficult to keep her in bed. She received Haldol 1 mg IVP. She required restraints for safety. According to nursing documentation on 03/24 at 0700, the patient was calm and cooperative. She was not in restraints and was not needing restraints. Nursing indicated that she was aware of her circumstances and was oriented. When I saw the patient, she was half-sitting up in bed. She gave fairly good eye contact. She was smiling and in a fairly good mood. She was not able to give any details of the events when she became agitated. She said that she had no awareness of having gone through that. She said that she was feeling fine today and had no specific complaints. She was able to maintain a fair conversation. She denied problems with her psychiatric medications. She was not reporting any anxiety or depression. MENTAL STATUS EXAM: The patient was a little restless. For the most part, she had a calm pleasant manner. It was noteworthy that she could talk about some aspects of her hospitalization and provide reasonable details. From time to time she would veer off and made comments that were completely tangential from her current circumstances. Some of what she would say was disorganized and difficult to follow meaning. At one point she started talking about having gone through the same thing her went through. She started explaining some details as if these were current events; then she indicated that her had well over a decade ago. At another point in the conversation she asked me if I was going to retire her. She repeated that several times in a somewhat worried manner. For the most part she smiled. She had a relaxed manner. Her mood was even. She did not appear to be distressed in any way. On cognitive exam, the patient was oriented to being in the hospital and her current circumstances. She could tell me it was March 2019. She was able to say it was Saturday. When I asked her the specific date, she said she believed it was March 10, then she stopped herself and said she was wrong and that it was her nephew's birthday yesterday, which is on March 23. She said, "So it must be a day or two after that." She knew the president. She knew her physician. She knew she was in [facility]. ASSESSMENT: This 73-year-old female has an underlying diagnosis of depression, which appears to be stable with her current psychotropic medications. It appears she had an episode of delirium in the last 2 days, most likely relating to discontinuation of her propofol and being taken off the ventilator and being extubated. She has shown clearing in the last 24 hours. She continues to show some disorganized thoughts in spite of being fully oriented. It is not clear to what extent that may be her baseline or may be residual symptoms of delirium. At this point I would recommend continuing the patient on Cymbalta 30 mg a day. It would be appropriate to utilize Haldol as was previously prescribed. Should she show further problems with confusion, disorientation or agitated behavior, doses in the range of 0.25 mg to 1 mg would be appropriate. If she has further regression, I recommend re-consulting Psychiatry. MMODL / IJN: [id number] /
[2019-03-25] MEDS: levETIRAcetam IV 500 MG in SODIUM CHLORIDE 0.9% 100 ML IVPB SCH ×4 (00:09→23:40)
[2019-03-25] MEDS: IPRATROPIUM-ALBUTEROL 3 ML NEB INHALATION SCH ×6 (03:40→23:35)
[2019-03-25 04:31] LABS: Basophils % (A) 0 %; Eosinophils # (A) 0.2 k/uL (0-0.7); Eosinophils % (A) 2 %; HCT 26.5 % (34.0-46.0); HGB 8.7 gm/dL (11.4-16.0); Lymphocytes # (A) 1.3 k/uL (1.0-4.8); Lymphocytes % (A) 13 %; MCH 29.5 pg (25.0-35.0); MCHC 32.7 g/dL (31.0-37.0); MCV 90.4 fL (80.0-100.0); Mean Platelet Volume 7.3; Monocytes # (A) 0.6 k/uL (0-1.0); Monocytes % (A) 6 %; Neutrophils # (A) 7.4 k/uL (1.3-7.7); Neutrophils % (A) 76 %; Platelet Count 274 k/uL (150-450); RBC 2.94 m/uL (3.80-5.40); RDW 14.9 % (11.5-15.5); WBC 9.8 k/uL (3.8-10.6)
[2019-03-25 04:40] LABS: Albumin 3.2 g/dL (3.5-5.0); Calcium 8.9 mg/dL (8.4-10.2); Magnesium 1.6 mg/dL (1.6-2.3); Phosphorus 3.3 mg/dL (2.5-4.5); Potassium 3.9 mmol/L (3.5-5.1); Total Bilirubin 0.4 mg/dL (0.2-1.3); Total Protein 5.6 g/dL (6.3-8.2)
[2019-03-25] MEDS: MAGNESIUM SULFATE-D5W PMX 1 GM in DEXTROSE/WATER 1 100ML.BAG IVPB SCH ×2 (06:14→10:03)
[2019-03-25] MEDS: POTASSIUM CHLORIDE 10 MEQ in WATER FOR INJECTION 1 100ML.BAG IVPB SCH ×2 (06:14→10:03)
[2019-03-25 07:28] LABS: Glucose,Whole Blood 91 mg/dL (75-99)
[2019-03-25] MEDS: INSULIN ASPART (NovoLOG) 100 UNIT/ML VIAL SQ SCH ×4 (07:35→22:05)
[2019-03-25] MEDS: FUROSEMIDE 10 MG/ML 2 ML VIAL IV SCH ×2 (07:41→22:09)
[2019-03-25] MEDS: DEXAMETHASONE SOD PHOSPHATE 4 MG/ML 1 ML VIAL IV SCH (07:41)
[2019-03-25] MEDS: PANTOPRAZOLE 40 MG/10 ML VIAL IVP SCH (07:41)
[2019-03-25] MEDS: DULoxetine HCL 30 MG CAPSULE.DR PO SCH (07:50)
[2019-03-25] MEDS: ENOXAPARIN 40 MG/0.4 ML SYRINGE SQ SCH (07:51)
[2019-03-25] MEDS: ACETAMINOPHEN TAB 325 MG TAB PO PRN ×3 (08:04→23:31)
[2019-03-25] MEDS: METOPROLOL SUCCINATE (ER) 50 MG TAB.ER.24H PO SCH (08:05)
--- NOTE | 2019-03-25 08:25 | P.PN ---
Subjective Patient is seen in follow-up for acute kidney injury. Her baseline creatinine is 1. It peaked at 1.89 this admission and is down to 0.95 this morning. She is maintained on Lasix 40 mg IV twice daily. She is nonoliguric. Echocardiogram revealed ejection fraction of 45-50%. She is awake and alert but is somewhat confused. Denies chest pain or shortness of breath. Hemodynamically stable. Vital signs are stable. General: The patient appeared well nourished and normally developed. Intubated. HEENT: Head exam is unremarkable. Neck is without jugular venous distension. LUNGS: Breath sounds decreased. HEART: Rate and Rhythm are regular. First and second heart sounds normal. No murmurs, rubs or gallops. ABDOMEN: Abdominal exam reveals normal bowel sounds. Non-tender and non- distended. No evidence of peritonitis. EXTREMITITES: Trace edema. Objective - Vital Signs Vital signs: Vital Signs Temp 98.4 F 03/25/19 08:00 Pulse 86 03/25/19 08:00 Resp 14 03/25/19 08:00 BP 132/66 03/25/19 08:00 Pulse Ox 93 L 03/25/19 08:00 Intake & Output 03/24/19 03/25/19 03/25/19 18:59 06:59 18:59 Intake Total 670 840 240 Output Total 1842 1610 95 Balance -1172 -770 145 Intake: IV 470 360 240 .9 kvo 200 260 40 Sodium Chloride 0.9% 1, 70 000 ml @ 50 mls/hr IV . Q20H [facility] Rx#:[id number] cefTRIAXone 1 gm In 100 Sodium Chloride 0.9% 50 ml @ 100 mls/hr IVPB Q24HR [facility] Rx#:[id number] levETIRAcetam IV 500 mg 200 100 100 In Sodium Chloride 0.9% 100 ml @ 400 mls/hr IVPB Q8HR [facility] Rx#:[id number] Intake, IV Titration 200 Amount Potassium Chloride 10 meq 100 In Water For Injection 1 100ml.bag @ 100 mls/hr IVPB Q1H [facility] Rx#: [id number] Sodium Ferric Gluconat- 100 Sucrose 125 mg In Sodium Chloride 0.9% 100 ml @ 100 mls/hr IVPB DAILY [facility] Rx#:[id number] Oral 480 Output: Urine 1842 1610 95 Other: Voiding Method Indwelling Catheter Indwelling Catheter ABP, PAP, CO, CI - Last Documented Arterial Blood Pressure 153/88 - Labs CBC & Chem 7: 03/25/19 04:10 03/25/19 04:10 Labs: Abnormal Lab Results - Last 24 Hours (Table) 03/24/19 03/24/19 03/24/19 Range/Units 03:58 11:30 17:01 RBC (3.80-5.40) m/uL Hgb (11.4-16.0) gm/dL Hct (34.0-46.0) % Chloride (98-107) mmol/L Carbon Dioxide (22-30) mmol/L BUN (7-17) mg/dL POC Glucose (mg/dL) 111 H 108 H (75-99) mg/dL Iron 29 L (50-170) ug/dL Total Protein (6.3-8.2) g/dL Albumin (3.5-5.0) g/dL 03/25/19 03/25/19 Range/Units 04:10 04:10 RBC 2.94 L (3.80-5.40) m/uL Hgb 8.7 L (11.4-16.0) gm/dL Hct 26.5 L (34.0-46.0) % Chloride 95 L (98-107) mmol/L Carbon Dioxide 38 H (22-30) mmol/L BUN 31 H (7-17) mg/dL POC Glucose (mg/dL) (75-99) mg/dL Iron (50-170) ug/dL Total Protein 5.6 L (6.3-8.2) g/dL Albumin 3.2 L (3.5-5.0) g/dL Assessment and Plan Plan: Assessment: 1. Acute kidney injury secondary to ATN secondary to hypotension and hemodynamic instability. Creatinine peaked at 1.89 this admission and is now back to baseline. No proteinuria on UA. 2. Bradycardia and complete heart block status post permanent pacemaker placement on March 20. 3. Mild volume overload. 4. Lactic acidosis secondary to hypotension. Improved with IV hydration. 5. Hypotension currently off Levophed. Resolved. 6. Acute hypoxic and hypercapnic respiratory failure. Currently on NC. 7. Possible seizures. Maintained on Keppra. 8. Hypokalemia secondary to diuresis. Status post replacement. 9. Anemia. Iron deficiency noted. No active bleeding noted. 10. Hypomagnesemia secondary to diuresis. 11. Altered mental status. Likely delirium. Psychiatry following. Plan: Maintain Lasix 40 mg IV twice daily - can be transitioned over to oral diuretics in the next day or 2. IV iron 3 doses. Second dose today. Potassium and magnesium replaced per protocol. Continue to monitor renal function and urine output.
[2019-03-25] MEDS: SODIUM FERRIC GLUCONAT-SUCROSE 125 MG in SODIUM CHLORIDE 0.9% 100 ML IVPB SCH (08:57)
--- NOTE | 2019-03-25 09:29 | P.PN ---
Subjective Progress Note Date: 03/25/19 Principal diagnosis: Complete heart block This is a 73-year-old white female patient with multiple comorbid conditions, with previous history of complete heart block requiring temporary pacemaker November 2018. Patient at that time clinically improved, and did not require placement of a permanent pacemaker. On patient was brought to the hospital by her daughter for weakness, lethargy, on the way to the hospital patient had a seizure. Does have underlying history of seizure disorder, currently on Keppra. Other medical history includes COPD/asthma, diabetes melli tus, chronic congestive heart failure, hypertension, osteoarthritis, sleep apnea, anxiety, depression, smoking history. Patient is on dexamethasone 4 history of a meningioma, or some type of a benign brain lesion, the details are not available to us. On arrival to the hospital she was found to be bradycardic with a heart rate in the 30s and the rhythm was a complete heart block. Dopamine was started however the right did not improve, she was symptomatic, was also hypotensive with systolic blood pressure ranging from 60s to 80s. Fluid challenge was given, 2-1/2 L of IV normal saline. She was taken to the stucco laborer, where a transvenous pacemaker was inserted via right groin, right femoral art line was inserted. Patient returned to the intensive care unit, on the 100% nonrebreather, however her respiratory status continued to decline, she was increasingly lethargic, blood gas showed pO2 of 56, pCO2 of 77, and pH of 7.25, and this was done and FiO2 of 40%, BiPAP support was initially attempted, however patient failed. Patient was intubated, placed on mechanical ventilator. This morning she seen in the intensive care unit, sedated and intubated on mechanical ventilator, and settings are assist-control mode with a rate of 20, tidal at 450, FiO2 of 40%, and PEEP of 5. This morning blood gases showed pO2 of 156, pCO2 of 37, pH is 7.47, on those settings. IV 0.9 normal saline at a rate of 20, Diprivan and is at 35 mics per kilo per minute, and levo fed is at 7 mics per minute. Dopamine had been discontinued as the patient had no response to it. She is currently being paced at a rate of 60 BPM transvenous pacemaker. It showed bibasilar infiltrates, suspected small bilateral pleural effusions, atelectasis along the minor fissure on the right, patient has a chronic elev ation of the left hemidiaphragm. This morning his blood work showed white blood cell count of 13.8, hemoglobin of 9.1, serum sodium is 134, potassium is 3.9, chloride is 99, CO2 was 26, B1 is 24, creatinine is 1.61, TSH was within normal limits at 1.470, lactic acid was 1.3 from 3.8. Blood cultures, urine culture, urine cultures have been sent. Emiliano antibiotic coverage in the form of Rocephin. On 03/19/2019 she is seen in follow-up in the intensive care unit, she remains sedated, intubated on mechanical ventilator, current vent settings are assist control mode of ventilation with a rate of 16, tidal vital 450, FiO2 35% and PEEP of 5. This morning blood gases were reviewed, and showed a pO2 of 107, pCO2 40, pH of 7.42, this was done and FiO2 of 35%, will drop down the FiO2 to 30%. Today's chest x-ray has been reviewed, and shows bibasilar atelectasis, and small pleural effusions, patient has been weaned off the levo fed drip, currently on Diprivan at 35 mics per kilo per minute, and 0.9 normal saline at a rate of 20 ML per hour, we'll give the patient of dose of IV Lasix 40 mg. Today's lab work has been reviewed, and showed a white blood cell count of 12.5, hemoglobin of 8.9, platelet count is 346, sodium is 135, potassium is 4.0, chloride is 103, renal profile is stable, B1 is 27, creatinine is 1.87. Urine output is 30-40 mL per hour. Blood and sputum cultures have been negative thus far. Intact tympanic coverage in the form of Rocephin, patient has had no fevers. She remains pacemaker dependent, and underlying rhythm is asystole, continues with the TVP in the right groin, and the pacing at a rate of 60 BPM. On 03/20/2019 patient seen in follow-up in the intensive care unit, she remains intubated, and on mechanical ventilator, she returned from placement of permanent pacemaker, tolerated procedure well, following the procedure patient was given a sedation holiday, patient was quite agitated, is every sedated, and she remains on assist control mode of ventilation with a rate of 16, tidal volume of 450, FiO2 of 100%, and PEEP of 5. This morning's chest x-ray showed bibasilar atelectasis, small pleural effusions. IV 0.9 normal saline at a rate of 20 ML per hour, no other drips. This morning's blood gas was reviewed, showed pO2 of 91, pCO2 41, pH of 7.41, this was done and FiO2 of 35%, this morning's blood work has been reviewed. Vital signs are stable, patient is afebrile, nonoliguric. Antibiotic coverage in the form of Rocephin continues, patient did receive clindamycin per cardiology for antimicrobial prophylaxis, blood and sputum cultures show no growth. On 03/23/2019 patient is seen in follow-up in intensive care unit, she is lethargic, arousable to verbal stimuli, she remains on BiPAP support with pressures of 12 with 6 and FiO2 of 35%, she was successfully extubated on 03/21/2019, after being intubated on 03/17/2019. Patient is status post permanent pacemaker placement for complete heart block on 03/20/2019, left upper chest incision is clean dry and intact, covered with surgical dressing, incisions clean dry and intact, soft, patient is currently in sinus rhythm with a controlled rate. Patient was on oral Lasix 20 mg twice daily, chest x-ray shows bilateral pleural effusions, cardiomegaly, diffuse interstitial changes consistent with fluid volume overload and congestive heart failure. Renal profile continues to improve, with creatinine down to 1.14, and BUN at 28, nephrology is following, and patient is been switched to IV Lasix per nephrology at 40 mg twice a day. Lung sounds are diminished, with diffuse crackles the bottoms, IV normal saline at a rate of KVO, right-sided groin venous and arterial catheters are in place, which probably should be discontinued. Hemodynamically patient is stable, she has diffuse anasarca, diffuse swelling in upper and lower extremities, in the pretibial areas patient has cellulitis type changes, and the skin is reddened and warm. Culture results have been reviewed, and remain negative, no cough or congestion. Denies any acute distress, patient is somnolent, but she is able to answer simple questions. On 03/24/2018 patient seen in follow-up in intensive care unit, she is awake and alert, she is oriented to person, place and the month. Much more awake today, c onversant, she is wearing BiPAP intermittently, she has a productive cough, bringing up yellowish colored sputum at times. But denies any worsening dyspnea, lung sounds are diminished, with bibasilar crackles. No new chest x- ray today, today's lab work has been reviewed, white blood cell count is 9.3, hemoglobin is 9.2, sodium is 142, potassium 3.7, chloride is 99, CO2 was 35, BUN is 27 creatinine 0.9. She is on IV diuretics, and she is in negative for thousand mL fluid balance over the last 24 hours. She is thirsty and hungry, she is asking for oral diet, we asked speech therapy to evaluate the patient's swallowing. Otherwise she is hemodynamically stable, IV 0.9 normal saline at a rate of 20 ML per hour, no other drips. BiPAP support with pressures of 12/6 on FiO2 of 35%. Blood and sputum cultures are negative. On 03/25/2019 patient is seen in follow-up in the intensive care unit, she is awake and alert, she is currently on 3 units of oxygen, did wear BiPAP last night, with pressures of 12 and 6 and FiO2 of 35%, her pulse ox on 3 L of oxygen is 93%, she is awake and alert, oriented 3, in no acute distress, denies any dyspnea, denies any chest pain, she is sinus rhythm on the monitor, with rare paced beats. No fever or chills, hemodynamically stable. Today's lab work has been reviewed, white blood cell count is 9.8, hemoglobin is 8.7, sodium is 137, potassium is 3.9, chloride is 95, CO2 is 38, BUN is 31, creatinine is 0.95. Culture data remains negative thus far. Lung sounds are clear. Point normal saline infusing at a rate of 20 ML per hour, patient remains on any diuretics, she is in -1942 mL fluid balance over the last 24 hours. Objective - Vital Signs Vital signs: Vital Signs Temp 98.4 F 03/25/19 08:00 Pulse 83 03/25/19 09:00 Resp 17 03/25/19 09:00 BP 107/55 03/25/19 09:00 Pulse Ox 96 03/25/19 09:00 Intake & Output 03/24/19 03/25/19 03/25/19 18:59 06:59 18:59 Intake Total 670 840 360 Output Total 1842 1610 240 Balance -1172 -770 120 Intake: IV 470 360 260 .9 kvo 200 260 60 Sodium Chloride 0.9% 1, 70 000 ml @ 50 mls/hr IV . Q20H [facility] Rx#:[id number] cefTRIAXone 1 gm In 100 Sodium Chloride 0.9% 50 ml @ 100 mls/hr IVPB Q24HR [facility] Rx#:[id number] levETIRAcetam IV 500 mg 200 100 100 In Sodium Chloride 0.9% 100 ml @ 400 mls/hr IVPB Q8HR [facility] Rx#:[id number] Intake, IV Titration 200 100 Amount Potassium Chloride 10 meq 100 In Water For Injection 1 100ml.bag @ 100 mls/hr IVPB Q1H [facility] Rx#: [id number] Sodium Ferric Gluconat- 100 100 Sucrose 125 mg In Sodium Chloride 0.9% 100 ml @ 100 mls/hr IVPB DAILY [facility] Rx#:[id number] Oral 480 Output: Urine 1842 1610 240 Other: Voiding Method Indwelling Catheter Indwelling Catheter Indwelling Catheter ABP, PAP, CO, CI - Last Documented Arterial Blood Pressure 153/88 - Exam GENERAL EXAM: Obese 73-year-old white female, awake and alert, oriented 2 3 L of oxygen, with pulse ox of 93%, comfortable in no apparent distress. Patient has diffuse anasarca, swelling and upper and lower extremities HEAD: Normocephalic/atraumatic. EYES: Normal reaction of pupils, equal size. Conjunctiva pink, sclera white. NOSE: Clear with pink turbinates. THROAT: No erythema or exudates. NECK: No masses, no JVD, no thyroid enlargement, no adenopathy. CHEST: No chest wall deformity. Symmetrical expansion. Left upper chest incisions clean dry and intact, soft, covered with surgical dressing. LUNGS: Equal air entry with no crackles, wheeze, rhonchi or dullness. Diminished Breath sounds at the bases CVS: Irregular rate and rhythm, normal S1 and S2, no gallops, no murmurs, no rubs. ABDOMEN: Soft, nontender. No hepatosplenomegaly, normal bowel sounds, no guarding or rigidity. EXTREMITIES: No clubbing, 1+ lower extremity and upper extremity edema, skin is fragile, bruised, pretibial areas of the skin are reddened and warm, no cyanosis, 2+ pulses and upper and lower extremities. MUSCULOSKELETAL: Muscle strength and tone normal. Interval removal of the right femoral transvenous pacemaker, SPINE: No scoliosis or deformity SKIN: No rashes CENTRAL NERVOUS SYSTEM: Lethargic, but arousable No focal deficits, tone is normal in all 4 extremities. - Labs CBC & Chem 7: 03/25/19 04:10 03/25/19 04:10 Labs: Abnormal Lab Results - Last 24 Hours (Table) 03/24/19 03/24/19 03/24/19 Range/Units 03:58 11:30 17:01 RBC (3.80-5.40) m/uL Hgb (11.4-16.0) gm/dL Hct (34.0-46.0) % Chloride (98-107) mmol/L Carbon Dioxide (22-30) mmol/L BUN (7-17) mg/dL POC Glucose (mg/dL) 111 H 108 H (75-99) mg/dL Iron 29 L (50-170) ug/dL Total Protein (6.3-8.2) g/dL Albumin (3.5-5.0) g/dL 03/25/19 03/25/19 Range/Units 04:10 04:10 RBC 2.94 L (3.80-5.40) m/uL Hgb 8.7 L (11.4-16.0) gm/dL Hct 26.5 L (34.0-46.0) % Chloride 95 L (98-107) mmol/L Carbon Dioxide 38 H (22-30) mmol/L BUN 31 H (7-17) mg/dL POC Glucose (mg/dL) (75-99) mg/dL Iron (50-170) ug/dL Total Protein 5.6 L (6.3-8.2) g/dL Albumin 3.2 L (3.5-5.0) g/dL Assessment and Plan Plan: Assessment: #1. Acute hypoxemic and hypercapnic respiratory failure related to hypoventilation. Chest x-ray showed bibasilar infiltrates, small bilateral pleural effusions. Patient has been intubated on 03/17/2019, and extubated on 03/21/2019. Post extubation required BiPAP support. #2. Third-degree heart block, symptomatic bradycardia, status post transvenous pacemaker placement and today on 03/20/2019 patient underwent placement of the permanent pacemaker #3. Breakthrough seizures, despite Keppra, likely related to hypoperfusion #4. Mild lactic acidosis, possibly related to hypotension related to bradycardia and complete heart block, rule out sepsis, cultures are pending, patient is covered with empiric antibiotic coverage. Improved with hydration #5. Acute kidney injury secondary to ATN, and proved #6. Hypotension related to bradycardia, improved, patient has been weaned off vasopressor support as off 03/19/2019 #7. History of COPD, with a baseline FEV1 of 65% of predicted, patient has a component of restrictive and obstructive pulmonary defect. #8. Previous episode of complete heart block in November 2018 which was transient, resolved on its own, and patient did not require placement of a permanent pacemaker, requiring just a temporary transvenous pacemaker. Heart catheterization was performed at that time on 11/25/2018 revealing normal coronary arteries. Last echocardiogram showed preserved left ventricular systolic function with an EF of 50-55%, mild aortic stenosis with peak/mean gradient across the aortic valve of 19.9 mmHg/10.5 mmHg, no evidence of pulmonary hypertension, there was mild tricuspid regurgitation #9. Elevated d-dimer, nonspecific #10. Morbid obesity #11. Former nicotine dependence history Plan: Continue IV diuretics, BiPAP support as needed, encourage deep breathing and coughing, signs are stable, occasional paced beats on the monitor, no arrhythmias. No acute issues overnight, she is breathing better, she is in nega tive fluid balance. Patient is stable to transfer out of the intensive care to selective care unit today. I performed a history & physical examination of the patient and discussed their management with my nurse practitioner, Maggie Morin. I reviewed the nurse practitioner's note and agree with the documented findings and plan of care. Lung sounds are positive for diminished sounds. The findings and the impression was discussed with the patient. I attest to the documentation by the nurse practitioner. Time with Patient: Less than 30
--- NOTE | 2019-03-25 11:17 | PN ---
PROGRESS NOTE Isabel is a 73-year-old lady who was admitted to hospital with complete heart block, underwent permanent pacemaker. She is still in ICU because of problems with oxygenation at times. She is alert, more oriented now than she was in the past. Has received IV Lasix. Denies chest pain. Difficulty in breathing is improving. On exam, heart rate is 73 beats per minute, blood pressure is 110/60, respiratory rate is 18. She is on BiPAP with an FiO2 of 35. Chest exam reveals good air entry bilaterally. Heart exam reveals first and second heart sounds. No gallop. Examination of the extremities did not reveal any edema. Peripheral pulses are felt. Labs show that the hemoglobin is 8.7, potassium is 3.9, creatinine is 0.9. ASSESSMENT: Complete heart block, status post permanent pacemaker. The patient is doing better. Continue current medications. MMODL / IJN: [id number] /
--- NOTE | 2019-03-25 11:32 | P.PN ---
Subjective Progress Note Date: 03/25/19 This is a 73-year-old female patient of Dr. Loomis. Patient presented to the ER with complaints of unresponsiveness possible seizure per daughter. Per ER report patient was in the car with her daughter when she had a seizure episode lasting approximately 3 minutes. Patient then came to inpatient was brought to the ER. It is noted patient was bradycardic. 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 Patient was here recently and treated for acute COPD exacerbation. Patient had a prolonged admission in December in which she had a previous pacer placed at that time. EKG showing a complete heart block with a rate 29. 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 Upon returning to the ICU patient went into respiratory distress and required intubation. Patient is also currently on pressure support medication. Patient's creatinine 1.61 and bun 24. Patient has had very little urine output. Patient has been given a total of 120 of Lasix. Critical care management are following. Patient currently has TVP in place. Patient remains in the intensive care unit. On 03/19/2019 patient remains on mechanical ventilation in the intensive care unit. Patient remains on small dose of Levophed. Per nursing staff patient is asystole under TVP. EEG has been ordered. Head CT completed showing no acute process. Keppra has been ordered. Patient currently on Keppra 500 3 times a day. Critical care cardiology and nephrology services are following. Patient's urine output has improved. 03/20/2018 patient is status post dual-chamber pacemaker placement. Patient remains on mechanical ventilation and sedation at this time. Patient has been off pressure support medication per 24 hours. Urine output has improved. Cr eatinine is trending down. Keppra level is therapeutic at 39.8 03/23/2019 patient remains in the ICU. She's currently on eye BiPAP. She was extubated on 03/21/2019. She had pacemaker placement for complete heart block on 03/20/2019. She is currently in sinus rhythm rate controlled. She is on Keppra for a possible seizure. She's had no further seizures. Chest x-ray showed bilateral pleural effusions, cardiomegaly, diffuse interstitial changes consistent with fluid volume overload and congestive heart failure. Patient was given IV Lasix 40 mg twice a day by nephrology. Patient is confused. She is crying out "help me help me." Discussed with nursing staff to be taking her off the BiPAP shortly. On 03/24/2019 patient is currently resting comfortably in bed. Patient is on nasal cannula. Patient reports that she feels improved. Speech evaluation to assess for patient swallowing. Patient is maintained on IV Lasix 40 mg every 12 hours per nephrology. At this time patient denies chest pain or shortness breath. Patient denies nausea vomiting or diarrhea. Patient denies any urinary burning or frequency. On 03/25/2019 patient is alert and resting comfortably in bed. Patient has been downgraded from intensive care unit. Patient is currently now on a heart healthy diet. Patient was also evaluated by psychiatry. No further changes at this time. Patient is on BiPAP. At this time patient denies chest pain or shortness breath. Patient denies nausea vomiting or diarrhea. Patient denies any urinary burning or frequency Objective - Vital Signs Vital signs: Vital Signs Temp 98.4 F 03/25/19 08:00 Pulse 75 03/25/19 11:00 Resp 16 03/25/19 10:00 BP 111/61 03/25/19 10:00 Pulse Ox 98 03/25/19 10:00 Intake & Output 03/24/19 03/25/19 03/25/19 18:59 06:59 18:59 Intake Total 670 840 380 Output Total 1842 1610 455 Balance -1172 -770 -75 Weight 120.1 kg Intake: IV 470 360 280 .9 kvo 200 260 80 Sodium Chloride 0.9% 1, 70 000 ml @ 50 mls/hr IV . Q20H [facility] Rx#:[id number] cefTRIAXone 1 gm In 100 Sodium Chloride 0.9% 50 ml @ 100 mls/hr IVPB Q24HR [facility] Rx#:[id number] levETIRAcetam IV 500 mg 200 100 100 In Sodium Chloride 0.9% 100 ml @ 400 mls/hr IVPB Q8HR [facility] Rx#:[id number] Intake, IV Titration 200 100 Amount Potassium Chloride 10 meq 100 In Water For Injection 1 100ml.bag @ 100 mls/hr IVPB Q1H [facility] Rx#: [id number] Sodium Ferric Gluconat- 100 100 Sucrose 125 mg In Sodium Chloride 0.9% 100 ml @ 100 mls/hr IVPB DAILY [facility] Rx#:[id number] Oral 480 Output: Urine 1842 1610 455 Other: Voiding Method Indwelling Catheter Indwelling Catheter Indwelling Catheter ABP, PAP, CO, CI - Last Documented Arterial Blood Pressure 153/88 - Exam Head normocephalic Neck supple Lungs diminished bilaterally with expiratory wheezing Heart regular rate and rhythm S1-S2, no rub or gallop Abdomen is soft nontender nondistended positive bowel sounds no h epatosplenomegaly Extremities no edema Neuro alert and calm. Follows commands - Labs CBC & Chem 7: 03/25/19 04:10 03/25/19 04:10 Labs: Abnormal Lab Results - Last 24 Hours (Table) 03/24/19 03/24/19 03/24/19 Range/Units 03:58 11:30 17:01 RBC (3.80-5.40) m/uL Hgb (11.4-16.0) gm/dL Hct (34.0-46.0) % Chloride (98-107) mmol/L Carbon Dioxide (22-30) mmol/L BUN (7-17) mg/dL POC Glucose (mg/dL) 111 H 108 H (75-99) mg/dL Iron 29 L (50-170) ug/dL Total Protein (6.3-8.2) g/dL Albumin (3.5-5.0) g/dL 03/25/19 03/25/19 Range/Units 04:10 04:10 RBC 2.94 L (3.80-5.40) m/uL Hgb 8.7 L (11.4-16.0) gm/dL Hct 26.5 L (34.0-46.0) % Chloride 95 L (98-107) mmol/L Carbon Dioxide 38 H (22-30) mmol/L BUN 31 H (7-17) mg/dL POC Glucose (mg/dL) (75-99) mg/dL Iron (50-170) ug/dL Total Protein 5.6 L (6.3-8.2) g/dL Albumin 3.2 L (3.5-5.0) g/dL Assessment and Plan Assessment: 1. Third-degree heart block, symptomatic bradycardic. Status post pacemaker placement. Patient remains normal sinus rhythm 2. Acute hypoxic and hypercapnic respiratory failure requiring mechanical ventilation. Extubated for 2018. Patient is currently on BiPAP when necessa pulmonary services are following 3. Possible Seizures. Patient is maintained on Keppra. Keppra has been increased to 500 IV 3 times a day. Head CT completed showing no definitive acute process. Keppra level 39.8. 4. Acute kidney injury secondary to ATN secondary to hypotension hemody namically instability. Nephrology services are following. Patient received 120 of Lasix. Urine output has improved. Creatinine is improving to 0.95 5. Hypotension related to hypotension. Resolved patient off Levophed 6. Urinary tract infection. UA positive for leukocyte esterase. Urine culture ordered. Patient currently maintained on Rocephin 7. History of COPD. 8. Previous episode of complete heart block in November 2018 which was transient 9. Underlying history of seizure disorder which she is maintained on Keppra. EEG completed. Results pending Keppra level 39.8 10. History of depression and anxiety 11. History of obstructive sleep apnea 12. History of chronic cor pulmonale 13. History of brain meningioma. Maintained on dexamethasone 14. Lactic acidosis. Initial lactic acid 3.8. Repeat 1.3. Patient positive for UTI. Patient currently maintained on Rocephin 15. Mild flud overload noted on chest x-ray. Nephrology following maintained on Lasix 40 mg IV twice a day 16. Iron deficiency Anemia. No signs of active bleeding. Studies ordered by nephrology. Current hemoglobin 9.2. IV iron 3 days ordered per nephrology DVT prophylaxis Lovenox. GI prophylaxis Protonix Critical care, cardiology and nephrology services following Social work consulted for ECF plan upon discharge I performed an examination of the patient and discussed their management with the Nurse Practitioner. I have reviewed the Nurse Practitioner's notes and agree with the documented findings and plan of care
[2019-03-25 11:47] LABS: Glucose,Whole Blood 160 mg/dL (75-99)
[2019-03-25] MEDS: FOLIC ACID 1 MG TAB PO SCH (11:47)
[2019-03-25] MEDS ORDERED: HALOPERIDOL LACTATE 5 MG/ML 1 ML VIAL IVP PRN ×2 (14:31→15:27)
[2019-03-25] MEDS ORDERED: HALOPERIDOL LACTATE 5 MG/ML 1 ML VIAL IVP STA (15:28)
[2019-03-25] MEDS ORDERED: levETIRAcetam 500 MG TAB PO SCH (16:00)
[2019-03-25] MEDS: cefTRIAXone IN SWFI 1,000 MG/10 ML SYRINGE IVP STA ×2 (17:00→17:31)
[2019-03-25 17:03] LABS: Glucose,Whole Blood 163 mg/dL (75-99)
[2019-03-25 20:22] LABS: Glucose,Whole Blood 109 mg/dL (75-99)
[2019-03-26] MEDS: IPRATROPIUM-ALBUTEROL 3 ML NEB INHALATION SCH ×6 (04:01→23:21)
[2019-03-26 05:54] LABS: Glucose,Whole Blood 88 mg/dL (75-99)
[2019-03-26 06:33] LABS: Basophils % (A) 0 %; Eosinophils # (A) 0.2 k/uL (0-0.7); Eosinophils % (A) 2 %; HCT 28.5 % (34.0-46.0); Lymphocytes # (A) 1.3 k/uL (1.0-4.8); Lymphocytes % (A) 14 %; MCH 29.5 pg (25.0-35.0); MCHC 31.6 g/dL (31.0-37.0); MCV 93.3 fL (80.0-100.0); Mean Platelet Volume 6.9; Monocytes # (A) 0.8 k/uL (0-1.0); Monocytes % (A) 8 %; Neutrophils # (A) 6.9 k/uL (1.3-7.7); Neutrophils % (A) 75 %; Platelet Count 281 k/uL (150-450); RBC 3.05 m/uL (3.80-5.40); RDW 14.8 % (11.5-15.5); WBC 9.3 k/uL (3.8-10.6)
[2019-03-26] MEDS: INSULIN ASPART (NovoLOG) 100 UNIT/ML VIAL SQ SCH ×4 (06:38→20:17)
[2019-03-26 06:45] LABS: Albumin 3.3 g/dL (3.5-5.0); Magnesium 1.9 mg/dL (1.6-2.3); Potassium 3.8 mmol/L (3.5-5.1); Total Bilirubin 0.4 mg/dL (0.2-1.3); Total Protein 5.7 g/dL (6.3-8.2)
[2019-03-26] MEDS: levETIRAcetam IV 500 MG in SODIUM CHLORIDE 0.9% 100 ML IVPB SCH (09:57)
[2019-03-26] MEDS: METOPROLOL SUCCINATE (ER) 50 MG TAB.ER.24H PO SCH (10:05)
[2019-03-26] MEDS: DULoxetine HCL 30 MG CAPSULE.DR PO SCH (10:05)
[2019-03-26] MEDS: FUROSEMIDE 10 MG/ML 2 ML VIAL IV SCH ×2 (10:06→20:25)
[2019-03-26] MEDS: DEXAMETHASONE SOD PHOSPHATE 4 MG/ML 1 ML VIAL IV SCH (10:06)
[2019-03-26] MEDS: PANTOPRAZOLE 40 MG/10 ML VIAL IVP SCH (10:06)
[2019-03-26] MEDS: ENOXAPARIN 40 MG/0.4 ML SYRINGE SQ SCH (10:07)
--- NOTE | 2019-03-26 10:34 | P.PN ---
Subjective Patient is seen in follow-up for acute kidney injury. Her baseline creatinine is 1. Renal function improved significantly since admission. Creatinine is mildly worse today which is due to diuresis. She is maintained on Lasix 40 mg IV twice daily. She is nonoliguric. Echocardiogram revealed ejection fraction of 45-50%. She is awake and alert. Denies chest pain or shortness of breath. Hemodynamically stable. Vital signs are stable. General: The patient appeared well nourished and normally developed. Intubated. HEENT: Head exam is unremarkable. Neck is without jugular venous distension. LUNGS: Breath sounds decreased. HEART: Rate and Rhythm are regular. First and second heart sounds normal. No murmurs, rubs or gallops. ABDOMEN: Abdominal exam reveals normal bowel sounds. Non-tender and non- distended. No evidence of peritonitis. EXTREMITITES: Trace edema. Objective - Vital Signs Vital signs: Vital Signs Temp 98.6 F 03/26/19 04:00 Pulse 84 03/26/19 07:53 Resp 18 03/26/19 04:00 BP 107/59 03/26/19 04:00 Pulse Ox 97 03/26/19 04:00 Intake & Output 03/25/19 03/26/19 03/26/19 18:59 06:59 18:59 Intake Total 500 Output Total 1620 1200 Balance -1120 -1200 Weight 120.1 kg 120.1 kg Intake: IV 400 .9 kvo 200 cefTRIAXone 1 gm In 100 Sodium Chloride 0.9% 50 ml @ 100 mls/hr IVPB Q24HR [facility] Rx#:[id number] levETIRAcetam IV 500 mg 100 In Sodium Chloride 0.9% 100 ml @ 400 mls/hr IVPB Q8HR [facility] Rx#:[id number] Intake, IV Titration 100 Amount Sodium Ferric Gluconat- 100 Sucrose 125 mg In Sodium Chloride 0.9% 100 ml @ 100 mls/hr IVPB DAILY [facility] Rx#:[id number] Output: Urine 1620 1200 Other: Voiding Method Indwelling Catheter Indwelling Catheter ABP, PAP, CO, CI - Last Documented Arterial Blood Pressure 153/88 - Labs CBC & Chem 7: 03/26/19 06:00 03/26/19 06:00 Labs: Abnormal Lab Results - Last 24 Hours (Table) 03/25/19 03/25/19 03/25/19 Range/Units 11:35 17:00 20:16 RBC (3.80-5.40) m/uL Hgb (11.4-16.0) gm/dL Hct (34.0-46.0) % Sodium (137-145) mmol/L Chloride (98-107) mmol/L Carbon Dioxide (22-30) mmol/L BUN (7-17) mg/dL Creatinine (0.52-1.04) mg/dL POC Glucose (mg/dL) 160 H 163 H 109 H (75-99) mg/dL Total Protein (6.3-8.2) g/dL Albumin (3.5-5.0) g/dL 03/26/19 03/26/19 Range/Units 06:00 06:00 RBC 3.05 L (3.80-5.40) m/uL Hgb 9.0 L (11.4-16.0) gm/dL Hct 28.5 L (34.0-46.0) % Sodium 136 L (137-145) mmol/L Chloride 92 L (98-107) mmol/L Carbon Dioxide 38 H (22-30) mmol/L BUN 26 H (7-17) mg/dL Creatinine 1.08 H (0.52-1.04) mg/dL POC Glucose (mg/dL) (75-99) mg/dL Total Protein 5.7 L (6.3-8.2) g/dL Albumin 3.3 L (3.5-5.0) g/dL Assessment and Plan Plan: Assessment: 1. Acute kidney injury secondary to ATN secondary to hypotension and hemodynamic instability. NELLIE had resolved. Creatinine slightly worse today which is due to diuresis. No proteinuria on UA. 2. Bradycardia and complete heart block status post permanent pacemaker placement on March 20. 3. Mild volume overload. 4. Lactic acidosis secondary to hypotension. Improved with IV hydration. 5. Hypotension currently off Levophed. Resolved. 6. Acute hypoxic and hypercapnic respiratory failure. Currently on NC. 7. Possible seizures. Maintained on Keppra. 8. Hypokalemia secondary to diuresis. Status post replacement. 9. Anemia. Iron deficiency noted. No active bleeding noted. 10. Hypomagnesemia secondary to diuresis. Better. 11. Altered mental status. Likely delirium. Psychiatry following. Plan: Maintain Lasix 40 mg IV twice daily - can be transitioned over to oral diuretics in the next day or 2. IV iron 3 doses. Third dose today. Continue to monitor renal function and urine output. Check chest x-ray.
--- NOTE | 2019-03-26 10:50 | P.PN ---
Subjective Progress Note Date: 03/26/19 This is a 73-year-old female patient of Dr. Loomis. Patient presented to the ER with complaints of unresponsiveness possible seizure per daughter. Per ER report patient was in the car with her daughter when she had a seizure episode lasting approximately 3 minutes. Patient then came to inpatient was brought to the ER. It is noted patient was bradycardic. 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 Patient was here recently and treated for acute COPD exacerbation. Patient had a prolonged admission in December in which she had a previous pacer placed at that time. EKG showing a complete heart block with a rate 29. 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 Upon returning to the ICU patient went into respiratory distress and required intubation. Patient is also currently on pressure support medication. Patient's creatinine 1.61 and bun 24. Patient has had very little urine output. Patient has been given a total of 120 of Lasix. Critical care management are following. Patient currently has TVP in place. Patient remains in the intensive care unit. On 03/19/2019 patient remains on mechanical ventilation in the intensive care unit. Patient remains on small dose of Levophed. Per nursing staff patient is asystole under TVP. EEG has been ordered. Head CT completed showing no acute process. Keppra has been ordered. Patient currently on Keppra 500 3 times a day. Critical care cardiology and nephrology services are following. Patient's urine output has improved. 03/20/2018 patient is status post dual-chamber pacemaker placement. Patient remains on mechanical ventilation and sedation at this time. Patient has been off pressure support medication per 24 hours. Urine output has improved. Cr eatinine is trending down. Keppra level is therapeutic at 39.8 03/23/2019 patient remains in the ICU. She's currently on eye BiPAP. She was extubated on 03/21/2019. She had pacemaker placement for complete heart block on 03/20/2019. She is currently in sinus rhythm rate controlled. She is on Keppra for a possible seizure. She's had no further seizures. Chest x-ray showed bilateral pleural effusions, cardiomegaly, diffuse interstitial changes consistent with fluid volume overload and congestive heart failure. Patient was given IV Lasix 40 mg twice a day by nephrology. Patient is confused. She is crying out "help me help me." Discussed with nursing staff to be taking her off the BiPAP shortly. On 03/24/2019 patient is currently resting comfortably in bed. Patient is on nasal cannula. Patient reports that she feels improved. Speech evaluation to assess for patient swallowing. Patient is maintained on IV Lasix 40 mg every 12 hours per nephrology. At this time patient denies chest pain or shortness breath. Patient denies nausea vomiting or diarrhea. Patient denies any urinary burning or frequency. On 03/25/2019 patient is alert and resting comfortably in bed. Patient has been downgraded from intensive care unit. Patient is currently now on a heart healthy diet. Patient was also evaluated by psychiatry. No further changes at this time. Patient is on BiPAP. At this time patient denies chest pain or shortness breath. Patient denies nausea vomiting or diarrhea. Patient denies any urinary burning or frequency On 03/26/2019 patient is alert and resting comfortably in bed. Patient has been moved out of the intensive care unit. This time patient is currently on nasal cannula. Patient denies chest pain or shortness of breath. Patient denies nausea vomiting or diarrhea. Patient denies any urinary burning or frequency Objective - Vital Signs Vital signs: Vital Signs Temp 98.6 F 03/26/19 04:00 Pulse 84 03/26/19 07:53 Resp 18 03/26/19 04:00 BP 107/59 03/26/19 04:00 Pulse Ox 97 03/26/19 04:00 Intake & Output 03/25/19 03/26/19 03/26/19 18:59 06:59 18:59 Intake Total 500 Output Total 1620 1200 Balance -1120 -1200 Weight 120.1 kg 120.1 kg Intake: IV 400 .9 kvo 200 cefTRIAXone 1 gm In 100 Sodium Chloride 0.9% 50 ml @ 100 mls/hr IVPB Q24HR [facility] Rx#:[id number] levETIRAcetam IV 500 mg 100 In Sodium Chloride 0.9% 100 ml @ 400 mls/hr IVPB Q8HR [facility] Rx#:[id number] Intake, IV Titration 100 Amount Sodium Ferric Gluconat- 100 Sucrose 125 mg In Sodium Chloride 0.9% 100 ml @ 100 mls/hr IVPB DAILY [facility] Rx#:[id number] Output: Urine 1620 1200 Other: Voiding Method Indwelling Catheter Indwelling Catheter ABP, PAP, CO, CI - Last Documented Arterial Blood Pressure 153/88 - Exam Head normocephalic Neck supple Lungs diminished bilaterally with expiratory wheezing Heart regular rate and rhythm S1-S2, no rub or gallop Abdomen is soft nontender nondistended positive bowel sounds no hepatosplenomegaly Extremities no edema Neuro alert and calm. Follows commands - Labs CBC & Chem 7: 03/26/19 06:00 03/26/19 06:00 Labs: Abnormal Lab Results - Last 24 Hours (Table) 03/25/19 03/25/19 03/25/19 Range/Units 11:35 17:00 20:16 RBC (3.80-5.40) m/uL Hgb (11.4-16.0) gm/dL Hct (34.0-46.0) % Sodium (137-145) mmol/L Chloride (98-107) mmol/L Carbon Dioxide (22-30) mmol/L BUN (7-17) mg/dL Creatinine (0.52-1.04) mg/dL POC Glucose (mg/dL) 160 H 163 H 109 H (75-99) mg/dL Total Protein (6.3-8.2) g/dL Albumin (3.5-5.0) g/dL 03/26/19 03/26/19 Range/Units 06:00 06:00 RBC 3.05 L (3.80-5.40) m/uL Hgb 9.0 L (11.4-16.0) gm/dL Hct 28.5 L (34.0-46.0) % Sodium 136 L (137-145) mmol/L Chloride 92 L (98-107) mmol/L Carbon Dioxide 38 H (22-30) mmol/L BUN 26 H (7-17) mg/dL Creatinine 1.08 H (0.52-1.04) mg/dL POC Glucose (mg/dL) (75-99) mg/dL Total Protein 5.7 L (6.3-8.2) g/dL Albumin 3.3 L (3.5-5.0) g/dL Assessment and Plan Assessment: 1. Third-degree heart block, symptomatic bradycardic. Status post pacemaker pl acement. Patient remains normal sinus rhythm 2. Acute hypoxic and hypercapnic respiratory failure requiring mechanical ventilation. Extubated for 2018. Patient is currently on BiPAP when [facility] pulmonary services are following 3. Possible Seizures. Patient is maintained on Keppra. Keppra has been increased to 500 IV 3 times a day. Head CT completed showing no definitive acute process. Keppra level 39.8. Keppra changed to oral 4. Acute kidney injury secondary to ATN secondary to hypotension hemodynamically instability. Nephrology services are following. Patient received 120 of Lasix. Urine output has improved. Creatinine is improving to 0.95 5. Hypotension related to hypotension. Resolved patient off Levophed 6. Urinary tract infection. UA positive for leukocyte esterase. Urine culture ordered. Patient currently maintained on Rocephin 7. History of COPD. 8. Previous episode of complete heart block in November 2018 which was transient 9. Underlying history of seizure disorder which she is maintained on Keppra. EEG completed. Results pending Keppra level 39.8 10. History of depression and anxiety 11. History of obstructive sleep apnea 12. History of chronic cor pulmonale 13. History of brain meningioma. Maintained on dexamethasone 14. Lactic acidosis. Initial lactic acid 3.8. Repeat 1.3. Patient positive for UTI. Patient currently maintained on Rocephin 15. Mild flud overload noted on chest x-ray. Nephrology following maintained on Lasix 40 mg IV twice a day 16. Iron deficiency Anemia. No signs of active bleeding. Studies ordered by nephrology. Current hemoglobin 9.2. IV iron 3 days ordered per nephrology DVT prophylaxis Lovenox. GI prophylaxis Protonix Critical care, cardiology and nephrology services following Social work consulted for ECF plan upon discharge I performed an examination of the patient and discussed their management with the Nurse Practitioner. I have reviewed the Nurse Practitioner's notes and agree with the documented findings and plan of care
[2019-03-26] MEDS: SODIUM FERRIC GLUCONAT-SUCROSE 125 MG in SODIUM CHLORIDE 0.9% 100 ML IVPB SCH (10:56)
[2019-03-26 12:16] LABS: Glucose,Whole Blood 131 mg/dL (75-99)
--- NOTE | 2019-03-26 12:20 | XR ---
EXAMINATION TYPE: XR chest 1V portable DATE OF EXAM: 03/26/2019 Comparison: 03/23/2019 Clinical History: 73-year-old female pleural effusions, fluid Findings: Left anterior chest wall pacemaker generator with right atrial and right ventricular leads. Small bilateral pleural effusions are present partially obscuring the heart margins. Heart appears mi ldly enlarged. Diffuse interstitial prominence. Fluid thickening the minor fissure. Overall appearanc e is not significantly changed. Impression: Cardiomegaly with similar small bilateral pleural effusions and adjacent atelectasis and/or consolida tion. Possible mild CHF as the etiology.
[2019-03-26] MEDS: FOLIC ACID 1 MG TAB PO SCH (13:05)
--- NOTE | 2019-03-26 14:33 | P.PN ---
Subjective Progress Note Date: 03/26/19 This is a 73-year-old white female patient with multiple comorbid conditions, with previous history of complete heart block requiring temporary pacemaker November 2018. Patient at that time clinically improved, and did not require placement of a permanent pacemaker. On patient was brought to the hospital by her daughter for weakness, lethargy, on the way to the hospital patient had a seizure. Does have underlying history of seizure disorder, currently on Keppra. Other medical history includes COPD/asthma, diabetes mellitus, chronic congestive heart failure, hypertension, osteoarthritis, sleep apnea, anxiety, depression, smoking history. Patient is on dexamethasone 4 history of a meningioma, or some type of a benign brain lesion, the details are not available to us. On arrival to the hospital she was found to be bradycardic with a heart rate in the 30s and the rhythm was a complete heart block. Dopamine was started however the right did not improve, she was symptomatic, was also hypotensive with systolic blood pressure ranging from 60s to 80s. Fluid challenge was given, 2-1/2 L of IV normal saline. She was taken to the receiver/laborer, where a transvenous pacemaker was inserted via right groin, right femoral art line was inserted. Patient returned to the intensive care unit, on the 100% nonrebreather, however her respiratory status continued to decline, she was increasingly lethargic, blood gas showed pO2 of 56, pCO2 of 77, and pH of 7.25, and this was done and FiO2 of 40%, BiPAP support was initially attempted, however patient failed. Patient was intubated, placed on mechanical ventilator. Subsequently patient did undergo implantation of a permanent pacemaker. Patient was seen and examined today on the cardiac unit, alert and oriented, resting comfortably in bed. Denies any chest pain or shortness of breath, no palpitations. Blood pressure 124/70 with a heart rate in the 80s, 97% on 3 L. White blood cell count 9.3, hemoglobin 9.0, platelet count 281. Sodium 136, potassium 3.8, BUN 26 creatinine 1.0. Objective - Vital Signs Vital signs: Vital Signs Temp 97 F L 03/26/19 13:00 Pulse 91 03/26/19 13:00 Resp 18 03/26/19 13:00 BP 125/71 03/26/19 13:00 Pulse Ox 97 03/26/19 13:00 Intake & Output 03/25/19 03/26/19 03/26/19 18:59 06:59 18:59 Intake Total 500 480 Output Total 1620 1200 Balance -1120 -1200 480 Weight 120.1 kg 120.1 kg Intake: IV 400 150 .9 kvo 200 cefTRIAXone 1 gm In 100 50 Sodium Chloride 0.9% 50 ml @ 100 mls/hr IVPB Q24HR [facility] Rx#:[id number] levETIRAcetam IV 500 mg 100 100 In Sodium Chloride 0.9% 100 ml @ 400 mls/hr IVPB Q8HR [facility] Rx#:[id number] Intake, IV Titration 100 100 Amount Sodium Ferric Gluconat- 100 100 Sucrose 125 mg In Sodium Chloride 0.9% 100 ml @ 100 mls/hr IVPB DAILY [facility] Rx#:[id number] Oral 230 Output: Urine 1620 1200 Other: Voiding Method Indwelling Catheter Indwelling Catheter Indwelling Catheter ABP, PAP, CO, CI - Last Documented Arterial Blood Pressure 153/88 - Exam HEAD: Normocephalic/atraumatic. EYES: Normal reaction of pupils, equal size. Conjunctiva pink, sclera white. NOSE: Clear with pink turbinates. THROAT: No erythema or exudates. NECK: No masses, no JVD, no thyroid enlargement, no adenopathy. CHEST: No chest wall deformity. Symmetrical expansion. Left upper chest incisions clean dry and intact, soft, covered with surgical dressing. LUNGS: Equal air entry with no crackles, wheeze, rhonchi or dullness. Diminishe d Breath sounds at the bases CVS: Irregular rate and rhythm, normal S1 and S2, no gallops, no murmurs, no rubs. ABDOMEN: Soft, nontender. No hepatosplenomegaly, normal bowel sounds, no guarding or rigidity. EXTREMITIES: No clubbing, 1+ lower extremity and upper extremity edema, skin is fragile, bruised, pretibial areas of the skin are reddened and warm, no cyanosis, 2+ pulses and upper and lower extremities. MUSCULOSKELETAL: Muscle strength and tone normal. Interval removal of the right femoral transvenous pacemaker, SPINE: No scoliosis or deformity SKIN: No rashes CENTRAL NERVOUS SYSTEM: Lethargic, but arousable No focal deficits, tone is normal in all 4 extremities. - Labs CBC & Chem 7: 03/26/19 06:00 03/26/19 06:00 Labs: Abnormal Lab Results - Last 24 Hours (Table) 03/25/19 03/25/19 03/26/19 Range/Units 17:00 20:16 06:00 RBC 3.05 L (3.80-5.40) m/uL Hgb 9.0 L (11.4-16.0) gm/dL Hct 28.5 L (34.0-46.0) % Sodium (137-145) mmol/L Chloride (98-107) mmol/L Carbon Dioxide (22-30) mmol/L BUN (7-17) mg/dL Creatinine (0.52-1.04) mg/dL POC Glucose (mg/dL) 163 H 109 H (75-99) mg/dL Total Protein (6.3-8.2) g/dL Albumin (3.5-5.0) g/dL 03/26/19 03/26/19 Range/Units 06:00 11:39 RBC (3.80-5.40) m/uL Hgb (11.4-16.0) gm/dL Hct (34.0-46.0) % Sodium 136 L (137-145) mmol/L Chloride 92 L (98-107) mmol/L Carbon Dioxide 38 H (22-30) mmol/L BUN 26 H (7-17) mg/dL Creatinine 1.08 H (0.52-1.04) mg/dL POC Glucose (mg/dL) 131 H (75-99) mg/dL Total Protein 5.7 L (6.3-8.2) g/dL Albumin 3.3 L (3.5-5.0) g/dL Assessment and Plan Plan: Assessment and plan #1. Acute hypoxemic and hypercapnic respiratory failure related to hyp oventilation. Chest x-ray showed bibasilar infiltrates, small bilateral pleural effusions. Patient has been intubated on 03/17/2019, and extubated on 03/21/2019. Post extubation required BiPAP support. #2. Third-degree heart block, symptomatic bradycardia, status post transvenous pacemaker placement and on 03/20/2019 patient underwent placement of the permanent pacemaker #3. Breakthrough seizures, despite Keppra, likely related to hypoperfusion #4. Mild lactic acidosis, possibly related to hypotension related to bradycardia and complete heart block, rule out sepsis, cultures are pending, patient is covered with empiric antibiotic coverage. Improved with hydration #5. Acute kidney injury secondary to ATN, and proved #6. Hypotension related to bradycardia, improved, patient has been weaned off vasopressor support as off 03/19/2019 #7. History of COPD, with a baseline FEV1 of 65% of predicted, patient has a component of restrictive and obstructive pulmonary defect. #8. Previous episode of complete heart block in November 2018 which was transient, resolved on its own, and patient did not require placement of a permanent pacemaker, requiring just a temporary transvenous pacemaker. Heart catheterization was performed at that time on 11/25/2018 revealing normal coron blair arteries. Last echocardiogram showed preserved left ventricular systolic function with an EF of 50-55%, mild aortic stenosis with peak/mean gradient across the aortic valve of 19.9 mmHg/10.5 mmHg, no evidence of pulmonary hypertension, there was mild tricuspid regurgitation #9. Elevated d-dimer, nonspecific #10. Morbid obesity #11. Former nicotine dependence history Plan From cardiology's perspective, we will continue current medications. Plan for possible discharge home in 48-72 hours if stable DNP note has been reviewed, I agree with a documented findings and plan of care. Patient was seen and examined.
--- NOTE | 2019-03-26 15:29 | P.PN ---
Subjective Progress Note Date: 03/26/19 Principal diagnosis: Complete heart block This is a 73-year-old white female patient with multiple comorbid conditions, with previous history of complete heart block requiring temporary pacemaker November 2018. Patient at that time clinically improved, and did not require placement of a permanent pacemaker. On patient was brought to the hospital by her daughter for weakness, lethargy, on the way to the hospital patient had a seizure. Does have underlying history of seizure disorder, currently on Keppra. Other medical history includes COPD/asthma, diabetes melli tus, chronic congestive heart failure, hypertension, osteoarthritis, sleep apnea, anxiety, depression, smoking history. Patient is on dexamethasone 4 history of a meningioma, or some type of a benign brain lesion, the details are not available to us. On arrival to the hospital she was found to be bradycardic with a heart rate in the 30s and the rhythm was a complete heart block. Dopamine was started however the right did not improve, she was symptomatic, was also hypotensive with systolic blood pressure ranging from 60s to 80s. Fluid challenge was given, 2-1/2 L of IV normal saline. She was taken to the [address] [facility], where a transvenous pacemaker was inserted via right groin, right femoral art line was inserted. Patient returned to the intensive care unit, on the 100% nonrebreather, however her respiratory status continued to decline, she was increasingly lethargic, blood gas showed pO2 of 56, pCO2 of 77, and pH of 7.25, and this was done and FiO2 of 40%, BiPAP support was initially attempted, however patient failed. Patient was intubated, placed on mechanical ventilator. This morning she seen in the intensive care unit, sedated and intubated on mechanical ventilator, and settings are assist-control mode with a rate of 20, tidal at 450, FiO2 of 40%, and PEEP of 5. This morning blood gases showed pO2 of 156, pCO2 of 37, pH is 7.47, on those settings. IV 0.9 normal saline at a rate of 20, Diprivan and is at 35 mics per kilo per minute, and levo fed is at 7 mics per minute. Dopamine had been discontinued as the patient had no response to it. She is currently being paced at a rate of 60 BPM transvenous pacemaker. It showed bibasilar infiltrates, suspected small bilateral pleural effusions, atelectasis along the minor fissure on the right, patient has a chronic elev ation of the left hemidiaphragm. This morning his blood work showed white blood cell count of 13.8, hemoglobin of 9.1, serum sodium is 134, potassium is 3.9, chloride is 99, CO2 was 26, B1 is 24, creatinine is 1.61, TSH was within normal limits at 1.470, lactic acid was 1.3 from 3.8. Blood cultures, urine culture, urine cultures have been sent. Emiliano antibiotic coverage in the form of Rocephin. On 03/19/2019 she is seen in follow-up in the intensive care unit, she remains sedated, intubated on mechanical ventilator, current vent settings are assist control mode of ventilation with a rate of 16, tidal vital 450, FiO2 35% and PEEP of 5. This morning blood gases were reviewed, and showed a pO2 of 107, pCO2 40, pH of 7.42, this was done and FiO2 of 35%, will drop down the FiO2 to 30%. Today's chest x-ray has been reviewed, and shows bibasilar atelectasis, and small pleural effusions, patient has been weaned off the levo fed drip, currently on Diprivan at 35 mics per kilo per minute, and 0.9 normal saline at a rate of 20 ML per hour, we'll give the patient of dose of IV Lasix 40 mg. Today's lab work has been reviewed, and showed a white blood cell count of 12.5, hemoglobin of 8.9, platelet count is 346, sodium is 135, potassium is 4.0, chloride is 103, renal profile is stable, B1 is 27, creatinine is 1.87. Urine output is 30-40 mL per hour. Blood and sputum cultures have been negative thus far. Intact tympanic coverage in the form of Rocephin, patient has had no fevers. She remains pacemaker dependent, and underlying rhythm is asystole, continues with the TVP in the right groin, and the pacing at a rate of 60 BPM. On 03/20/2019 patient seen in follow-up in the intensive care unit, she remains intubated, and on mechanical ventilator, she returned from placement of permanent pacemaker, tolerated procedure well, following the procedure patient was given a sedation holiday, patient was quite agitated, is every sedated, and she remains on assist control mode of ventilation with a rate of 16, tidal volume of 450, FiO2 of 100%, and PEEP of 5. This morning's chest x-ray showed bibasilar atelectasis, small pleural effusions. IV 0.9 normal saline at a rate of 20 ML per hour, no other drips. This morning's blood gas was reviewed, showed pO2 of 91, pCO2 41, pH of 7.41, this was done and FiO2 of 35%, this morning's blood work has been reviewed. Vital signs are stable, patient is afebrile, nonoliguric. Antibiotic coverage in the form of Rocephin continues, patient did receive clindamycin per cardiology for antimicrobial prophylaxis, blood and sputum cultures show no growth. On 03/23/2019 patient is seen in follow-up in intensive care unit, she is lethargic, arousable to verbal stimuli, she remains on BiPAP support with pressures of 12 with 6 and FiO2 of 35%, she was successfully extubated on 03/21/2019, after being intubated on 03/17/2019. Patient is status post permanent pacemaker placement for complete heart block on 03/20/2019, left upper chest incision is clean dry and intact, covered with surgical dressing, incisions clean dry and intact, soft, patient is currently in sinus rhythm with a controlled rate. Patient was on oral Lasix 20 mg twice daily, chest x-ray shows bilateral pleural effusions, cardiomegaly, diffuse interstitial changes consistent with fluid volume overload and congestive heart failure. Renal profile continues to improve, with creatinine down to 1.14, and BUN at 28, nephrology is following, and patient is been switched to IV Lasix per nephrology at 40 mg twice a day. Lung sounds are diminished, with diffuse crackles the bottoms, IV normal saline at a rate of KVO, right-sided groin venous and arterial catheters are in place, which probably should be discontinued. Hemodynamically patient is stable, she has diffuse anasarca, diffuse swelling in upper and lower extremities, in the pretibial areas patient has cellulitis type changes, and the skin is reddened and warm. Culture results have been reviewed, and remain negative, no cough or congestion. Denies any acute distress, patient is somnolent, but she is able to answer simple questions. On 03/24/2018 patient seen in follow-up in intensive care unit, she is awake and alert, she is oriented to person, place and the month. Much more awake today, c onversant, she is wearing BiPAP intermittently, she has a productive cough, bringing up yellowish colored sputum at times. But denies any worsening dyspnea, lung sounds are diminished, with bibasilar crackles. No new chest x- ray today, today's lab work has been reviewed, white blood cell count is 9.3, hemoglobin is 9.2, sodium is 142, potassium 3.7, chloride is 99, CO2 was 35, BUN is 27 creatinine 0.9. She is on IV diuretics, and she is in negative for thousand mL fluid balance over the last 24 hours. She is thirsty and hungry, she is asking for oral diet, we asked speech therapy to evaluate the patient's swallowing. Otherwise she is hemodynamically stable, IV 0.9 normal saline at a rate of 20 ML per hour, no other drips. BiPAP support with pressures of 12/6 on FiO2 of 35%. Blood and sputum cultures are negative. On 03/25/2019 patient is seen in follow-up in the intensive care unit, she is awake and alert, she is currently on 3 units of oxygen, did wear BiPAP last night, with pressures of 12 and 6 and FiO2 of 35%, her pulse ox on 3 L of oxygen is 93%, she is awake and alert, oriented 3, in no acute distress, denies any dyspnea, denies any chest pain, she is sinus rhythm on the monitor, with rare paced beats. No fever or chills, hemodynamically stable. Today's lab work has been reviewed, white blood cell count is 9.8, hemoglobin is 8.7, sodium is 137, potassium is 3.9, chloride is 95, CO2 is 38, BUN is 31, creatinine is 0.95. Culture data remains negative thus far. Lung sounds are clear. Point normal saline infusing at a rate of 20 ML per hour, patient remains on any diuretics, she is in -1942 mL fluid balance over the last 24 hours. On 03/26/2019 patient seen in follow-up and selective care unit, she is awake and alert, she is currently on 3 L of oxygen per nasal cannula, she did wear BiPAP support last night, her current set is 98%, she is afebrile, he modynamically stable, lung sounds are diminished at the bases, with some limited crackles, patient is alert, oriented 3, less confused and agitated, yesterday patient required a couple doses of IV Haldol, and product safety head was placed at the bedside. No complaints of chest pain. Today's chest x-ray showed cardiomegaly with small bilateral pleural effusions and adjacent atelectasis and/or consolidation. Continues to diurese, she is a -2320 ML fluid balance over the last 24 hours. Blood and sputum cultures have been negative. No fever or chills. No specific complaints, no recurrent episodes of arrhythmia Objective - Vital Signs Vital signs: Vital Signs Temp 97 F L 03/26/19 13:00 Pulse 91 03/26/19 13:00 Resp 18 03/26/19 13:00 BP 125/71 03/26/19 13:00 Pulse Ox 97 03/26/19 13:00 Intake & Output 03/25/19 03/26/19 03/26/19 18:59 06:59 18:59 Intake Total 500 480 Output Total 1620 1200 Balance -1120 -1200 480 Weight 120.1 kg 120.1 kg Intake: IV 400 150 .9 kvo 200 cefTRIAXone 1 gm In 100 50 Sodium Chloride 0.9% 50 ml @ 100 mls/hr IVPB Q24HR [facility] Rx#:[id number] levETIRAcetam IV 500 mg 100 100 In Sodium Chloride 0.9% 100 ml @ 400 mls/hr IVPB Q8HR [facility] Rx#:[id number] Intake, IV Titration 100 100 Amount Sodium Ferric Gluconat- 100 100 Sucrose 125 mg In Sodium Chloride 0.9% 100 ml @ 100 mls/hr IVPB DAILY [facility] Rx#:[id number] Oral 230 Output: Urine 1620 1200 Other: Voiding Method Indwelling Catheter Indwelling Catheter Indwelling Catheter ABP, PAP, CO, CI - Last Documented Arterial Blood Pressure 153/88 - Exam GENERAL EXAM: Obese 73-year-old white female, awake and alert, oriented 2 3 L of oxygen, with pulse ox of 93%, comfortable in no apparent distress. Patient has diffuse anasarca, swelling and upper and lower extremities HEAD: Normocephalic/atraumatic. EYES: Normal reaction of pupils, equal size. Conjunctiva pink, sclera white. NOSE: Clear with pink turbinates. THROAT: No erythema or exudates. NECK: No masses, no JVD, no thyroid enlargement, no adenopathy. CHEST: No chest wall deformity. Symmetrical expansion. Left upper chest incisions clean dry and intact, soft, covered with surgical dressing. LUNGS: Equal air entry with diminished breath sounds at the bases, with very limited bibasilar crackles CVS: Irregular rate and rhythm, normal S1 and S2, no gallops, no murmurs, no rubs. ABDOMEN: Soft, nontender. No hepatosplenomegaly, normal bowel sounds, no guarding or rigidity. EXTREMITIES: No clubbing, 1+ lower extremity and upper extremity edema, skin is fragile, bruised, pretibial areas of the skin are reddened and warm, no cyanosis, 2+ pulses and upper and lower extremities. MUSCULOSKELETAL: Muscle strength and tone normal. Interval removal of the right femoral transvenous pacemaker, SPINE: No scoliosis or deformity SKIN: No rashes CENTRAL NERVOUS SYSTEM: Awake and alert, oriented 3 No focal deficits, tone is normal in all 4 extremities. - Labs CBC & Chem 7: 03/26/19 06:00 03/26/19 06:00 Labs: Abnormal Lab Results - Last 24 Hours (Table) 03/25/19 03/25/19 03/26/19 Range/Units 17:00 20:16 06:00 RBC 3.05 L (3.80-5.40) m/uL Hgb 9.0 L (11.4-16.0) gm/dL Hct 28.5 L (34.0-46.0) % Sodium (137-145) mmol/L Chloride (98-107) mmol/L Carbon Dioxide (22-30) mmol/L BUN (7-17) mg/dL Creatinine (0.52-1.04) mg/dL POC Glucose (mg/dL) 163 H 109 H (75-99) mg/dL Total Protein (6.3-8.2) g/dL Albumin (3.5-5.0) g/dL 03/26/19 03/26/19 Range/Units 06:00 11:39 RBC (3.80-5.40) m/uL Hgb (11.4-16.0) gm/dL Hct (34.0-46.0) % Sodium 136 L (137-145) mmol/L Chloride 92 L (98-107) mmol/L Carbon Dioxide 38 H (22-30) mmol/L BUN 26 H (7-17) mg/dL Creatinine 1.08 H (0.52-1.04) mg/dL POC Glucose (mg/dL) 131 H (75-99) mg/dL Total Protein 5.7 L (6.3-8.2) g/dL Albumin 3.3 L (3.5-5.0) g/dL Assessment and Plan Plan: Assessment: #1. Acute hypoxemic and hypercapnic respiratory failure related to hypoventilation. Chest x-ray showed bibasilar infiltrates, small bilateral pleural effusions. Patient has been intubated on 03/17/2019, and extubated on 03/21/2019. Post extubation required BiPAP support. #2. Third-degree heart block, symptomatic bradycardia, status post transvenous pacemaker placement and today on 03/20/2019 patient underwent placement of the permanent pacemaker #3. Breakthrough seizures, despite Keppra, likely related to hypoperfusion #4. Mild lactic acidosis, possibly related to hypotension related to bradycardia and complete heart block, rule out sepsis, cultures are pending, patient is covered with empiric antibiotic coverage. Improved with hydration #5. Acute kidney injury secondary to ATN, and proved #6. Hypotension related to bradycardia, improved, patient has been weaned off vasopressor support as off 03/19/2019 #7. History of COPD, with a baseline FEV1 of 65% of predicted, patient has a component of restrictive and obstructive pulmonary defect. #8. Previous episode of complete heart block in November 2018 which was transient, resolved on its own, and patient did not require placement of a permanent pacemaker, requiring just a temporary transvenous pacemaker. Heart catheterization was performed at that time on 11/25/2018 revealing normal coronary arteries. Last echocardiogram showed preserved left ventricular systolic function with an EF of 50-55%, mild aortic stenosis with peak/mean gradient across the aortic valve of 19.9 mmHg/10.5 mmHg, no evidence of pulmonary hypertension, there was mild tricuspid regurgitation #9. Elevated d-dimer, nonspecific #10. Morbid obesity #11. Former nicotine dependence history Plan: Continue with current medical treatment, she continues to diurese, chest x-ray showed small bilateral pleural effusions with adjacent atelectasis, clinically she is stable, no complete a worsening dyspnea, no chest pain, no recurrence of arrhythmias, no fever or chills, culture dated remains negative thus far, we'll Stop the Rocephin, her IV Decadron can be switched to oral. Pulmonary perspective patient can be considered for discharge to subacute rehab today tomorrow. I performed a history & physical examination of the patient and discussed their management with my nurse practitioner, Maggie Morin. I reviewed the nurse practitioner's note and agree with the documented findings and plan of care. Lung sounds are positive for diminished sounds. The findings and the impression was discussed with the patient. I attest to the documentation by the nurse practitioner. Time with Patient: Less than 30
[2019-03-26] MEDS ORDERED: HALOPERIDOL LACTATE 5 MG/ML 1 ML VIAL IVP PRN (15:31)
[2019-03-26] MEDS: ALPRAZolam 0.25 MG TAB PO PRN (15:36)
[2019-03-26] MEDS: levETIRAcetam 500 MG TAB PO SCH ×2 (15:36→23:11)
[2019-03-26] MEDS: ACETAMINOPHEN TAB 325 MG TAB PO PRN ×2 (15:43→23:11)
[2019-03-26 17:10] LABS: Glucose,Whole Blood 152 mg/dL (75-99)
[2019-03-26 20:05] LABS: Glucose,Whole Blood 118 mg/dL (75-99)
[2019-03-27] MEDS: IPRATROPIUM-ALBUTEROL 3 ML NEB INHALATION SCH ×3 (03:16→12:29)
[2019-03-27 06:52] LABS: Glucose,Whole Blood 112 mg/dL (75-99)
[2019-03-27] MEDS: INSULIN ASPART (NovoLOG) 100 UNIT/ML VIAL SQ SCH ×2 (06:54→12:02)
[2019-03-27 07:04] LABS: Basophils % (A) 0 %; Eosinophils # (A) 0.1 k/uL (0-0.7); Eosinophils % (A) 2 %; HCT 26.9 % (34.0-46.0); HGB 8.6 gm/dL (11.4-16.0); Lymphocytes # (A) 1.3 k/uL (1.0-4.8); Lymphocytes % (A) 16 %; MCH 29.5 pg (25.0-35.0); MCV 92.2 fL (80.0-100.0); Mean Platelet Volume 7.4; Monocytes # (A) 0.7 k/uL (0-1.0); Monocytes % (A) 8 %; Neutrophils # (A) 6.1 k/uL (1.3-7.7); Neutrophils % (A) 73 %; Platelet Count 250 k/uL (150-450); RBC 2.92 m/uL (3.80-5.40); RDW 14.8 % (11.5-15.5); WBC 8.3 k/uL (3.8-10.6)
[2019-03-27 07:28] LABS: Albumin 3.1 g/dL (3.5-5.0); Calcium 8.9 mg/dL (8.4-10.2); Magnesium 1.7 mg/dL (1.6-2.3); Potassium 3.5 mmol/L (3.5-5.1); Total Bilirubin 0.4 mg/dL (0.2-1.3); Total Protein 5.4 g/dL (6.3-8.2)
[2019-03-27] MEDS ORDERED: POTASSIUM CHLORIDE ER 20 MEQ TAB.ER PO STA (07:56)
[2019-03-27] MEDS ORDERED: MAGNESIUM SULFATE-D5W PMX 1 GM in DEXTROSE/WATER 1 100ML.BAG IVPB ONE (08:25)
--- NOTE | 2019-03-27 08:26 | P.PN ---
Subjective Patient is seen in follow-up for acute kidney injury. Her baseline creatinine is 1. Renal function improved significantly since admission. She is maintained on Lasix 40 mg IV twice daily. She is nonoliguric. Echocardiogram revealed ejection fraction of 45-50%. She is awake and alert. Denies chest pain or shortness of breath. Hemodynamically stable. No active complaints at this time. Vital signs are stable. General: The patient appeared well nourished and normally developed. Intubated. HEENT: Head exam is unremarkable. Neck is without jugular venous distension. LUNGS: Breath sounds decreased. HEART: Rate and Rhythm are regular. First and second heart sounds normal. No murmurs, rubs or gallops. ABDOMEN: Abdominal exam reveals normal bowel sounds. Non-tender and non- distended. No evidence of peritonitis. EXTREMITITES: Trace edema. Objective - Vital Signs Vital signs: Vital Signs Temp 98.7 F 03/27/19 04:00 Pulse 90 03/27/19 04:00 Resp 16 03/27/19 04:00 BP 124/65 03/27/19 04:00 Pulse Ox 95 03/27/19 04:00 Intake & Output 03/26/19 03/27/19 03/27/19 18:59 06:59 18:59 Intake Total 1080 Output Total 1750 1250 Balance -670 -1250 Weight 116.5 kg Intake: IV 150 cefTRIAXone 1 gm In 50 Sodium Chloride 0.9% 50 ml @ 100 mls/hr IVPB Q24HR [facility] Rx#:[id number] levETIRAcetam IV 500 mg 100 In Sodium Chloride 0.9% 100 ml @ 400 mls/hr IVPB Q8HR [facility] Rx#:[id number] Intake, IV Titration 100 Amount Sodium Ferric Gluconat- 100 Sucrose 125 mg In Sodium Chloride 0.9% 100 ml @ 100 mls/hr IVPB DAILY [facility] Rx#:[id number] Oral 830 Output: Urine 1750 1250 Other: Voiding Method Indwelling Catheter Indwelling Catheter # Voids 1 ABP, PAP, CO, CI - Last Documented Arterial Blood Pressure 153/88 - Labs CBC & Chem 7: 03/27/19 06:27 03/27/19 06:27 Labs: Abnormal Lab Results - Last 24 Hours (Table) 04/25/19 04/25/19 04/25/19 Range/Units 11:39 17:02 20:04 RBC (3.80-5.40) m/uL Hgb (11.4-16.0) gm/dL Hct (34.0-46.0) % Chloride (98-107) mmol/L Carbon Dioxide (22-30) mmol/L BUN (7-17) mg/dL POC Glucose (mg/dL) 131 H 152 H 118 H (75-99) mg/dL Total Protein (6.3-8.2) g/dL Albumin (3.5-5.0) g/dL 03/27/19 03/27/19 03/27/19 Range/Units 06:27 06:27 06:50 RBC 2.92 L (3.80-5.40) m/uL Hgb 8.6 L (11.4-16.0) gm/dL Hct 26.9 L (34.0-46.0) % Chloride 94 L (98-107) mmol/L Carbon Dioxide 38 H (22-30) mmol/L BUN 28 H (7-17) mg/dL POC Glucose (mg/dL) 112 H (75-99) mg/dL Total Protein 5.4 L (6.3-8.2) g/dL Albumin 3.1 L (3.5-5.0) g/dL Assessment and Plan Plan: Assessment: 1. Acute kidney injury secondary to ATN secondary to hypotension and he modynamic instability. NELLIE resolved. No proteinuria on UA. 2. Bradycardia and complete heart block status post permanent pacemaker placement on March 20. 3. Mild volume overload. 4. Lactic acidosis secondary to hypotension. Improved with IV hydration. 5. Hypotension currently off Levophed. Resolved. 6. Acute hypoxic and hypercapnic respiratory failure. Currently on NC. 7. Possible seizures. Maintained on Keppra. 8. Hypokalemia secondary to diuresis. 9. Anemia. Iron deficiency noted. No active bleeding noted. Status post 3 doses of IV iron. 10. Hypomagnesemia secondary to diuresis. Better. 11. Altered mental status. Likely delirium. Psychiatry following. Better. Plan: Change Lasix to 40 mg orally twice daily. Add potassium supplementation 10 mEq twice daily. Additional 40 mEq of potassium today.
[2019-03-27] MEDS ORDERED: POTASSIUM CHLORIDE ER 10 MEQ TAB.ER.PRT PO SCH (09:00)
[2019-03-27] MEDS ORDERED: DEXAMETHASONE 4 MG TAB PO SCH (09:00)
[2019-03-27] MEDS: levETIRAcetam 500 MG TAB PO SCH ×2 (09:23→16:05)
[2019-03-27] MEDS: METOPROLOL SUCCINATE (ER) 50 MG TAB.ER.24H PO SCH (09:24)
[2019-03-27] MEDS: FUROSEMIDE 40 MG TAB PO SCH ×2 (09:24→16:05)
[2019-03-27] MEDS: DULoxetine HCL 30 MG CAPSULE.DR PO SCH (09:24)
[2019-03-27] MEDS: ENOXAPARIN 40 MG/0.4 ML SYRINGE SQ SCH (09:26)
[2019-03-27] MEDS: PANTOPRAZOLE 40 MG/10 ML VIAL IVP SCH (09:26)
[2019-03-27] MEDS: SODIUM FERRIC GLUCONAT-SUCROSE 125 MG in SODIUM CHLORIDE 0.9% 100 ML IVPB SCH (09:27)
[2019-03-27 10:14] VITALS: BMI 50.1
[2019-03-27 10:57] VITALS: RESP 18
[2019-03-27 11:44] LABS: Glucose,Whole Blood 131 mg/dL (75-99)
[2019-03-27] MEDS ORDERED: amLODIPine 10 MG TAB PO SCH (12:00)
[2019-03-27] MEDS: FOLIC ACID 1 MG TAB PO SCH (12:02)
--- NOTE | 2019-03-27 12:14 | PN ---
PROGRESS NOTE Isabel is a 73-year-old lady who is admitted to hospital with complete heart block, underwent permanent pacemaker. She is doing better this morning. No issues with her pacemaker. From cardiac standpoint she is stable for discharge. PHYSICAL EXAMINATION: On exam, vital signs are stable. There is no jugular venous distention. Chest exam reveals good air entry bilaterally. Heart exam reveals first and second heart sounds. No gallop. LABS: Labs show a hemoglobin of 8.6, potassium is 3.5, creatinine is 0.9. ASSESSMENT: Complete heart block, status post permanent pacemaker. The patient is doing well. She is stable for discharge. MMODL / IJN: [id number] /
[2019-03-27 13:23] VITALS: BP 128/58; PULSE 71; TEMP 96.9
--- NOTE | 2019-03-27 13:31 | P.DS ---
Providers Date of admission: 03/17/19 20:56 Expected date of discharge: 03/27/19 Attending physician: Kimberley Sharif Consults: 03/17/19 20:56 Consult Physician Stat Consulting Provider: Joe Crowell Consult Reason/Comments: ICU management Do you want consulting provider notified?: Already Contacted Consult Physician Stat Consulting Provider: Barron Ellis Consult Reason/Comments: Third-degree AV block Do you want consulting provider notified?: Already Contacted 03/18/19 06:57 Consult Physician Routine Consulting Provider: Peyton Gutierrez Consult Reason/Comments: decreased urine output Do you want consulting provider notified?: Yes, Notify in am 03/23/19 15:19 Consult Physician Routine Consulting Provider: Christos Ho Consult Reason/Comments: Altered mental status Do you want consulting provider notified?: Yes Primary care physician: Marcia Bryce Hospital Course: Discharge diagnosis 1. Third-degree heart block, symptomatic bradycardic. Status post pacemaker placement. Patient remains normal sinus rhythm 2. Acute hypoxic and hypercapnic respiratory failure requiring mechanical ventilation. Extubated for 2018. Patient is currently on BiPAP when necessary pulmonary services are following. Patient has been cleared by pulmonary services for discharge. Patient will be discharged to F on 3 L plus BiPAP at hs. patient will be DC'd on dexamethasone at 4 mg for 1 week and then taken down to 2 mg in which she takes chronically for her brain meningioma. 3. Possible Seizures. Patient is maintained on Keppra. Keppra has been increased to 500 IV 3 times a day. Head CT completed showing no definitive acute process. Keppra level 39.8. Keppra changed to oral 3 times a day 4. Acute kidney injury secondary to ATN secondary to hypotension hemodynamically instability. Nephrology services are following. Patient received 120 of Lasix. Urine output has improved. Creatinine is improving to 0.95. We'll continue to monitor outpatient 5. Hypotension related to hypotension. Resolved patient off Levophed 6. Urinary tract infection. UA positive for leukocyte esterase. Urine culture ordered. Patient currently maintained on Rocephin. Antibiotics DC'd per critical care. Patient has completed treatment 7. History of COPD. 8. Previous episode of complete heart block in November 2018 which was transient 9. Underlying history of seizure disorder which she is maintained on Keppra. EEG completed. Results pending Keppra level 39.8 10. History of depression and anxiety 11. History of obstructive sleep apnea 12. History of chronic cor pulmonale 13. History of brain meningioma. Maintained on dexamethasone 14. Lactic acidosis. Initial lactic acid 3.8. Repeat 1.3. Patient positive for UTI. Patient currently maintained on Rocephin 15. Mild flud overload noted on chest x-ray. Nephrology following maintained on Lasix 40 mg IV twice a day. She will be DC'd on Lasix twice a day 40 mg 16. Iron deficiency Anemia. No signs of active bleeding. Studies ordered by nephrology. Current hemoglobin 9.2. IV iron 3 days ordered per nephrology. She will be DC'd on ferrous sulfate Hospital course This is a 73-year-old female patient of Dr. Loomis. Patient presented to the ER with complaints of unresponsiveness possible seizure per daughter. Per ER report patient was in the car with her daughter when she had a seizure episode lasting approximately 3 minutes. Patient then came to inpatient was brought to the ER. It is noted patient was bradycardic. 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 Patient was here recently and treated for acute COPD exacerbation. Patient had a prolonged admission in December in which she had a previous pacer placed at that time. EKG showing a complete heart block with a rate 29. Patient was taken to the cardiac [facility] [employer] history of 03/17/2019 and temporary venous pacer was placed at that time. Upon returning to the ICU patient went into respiratory distress and required intubation. Patient is also currently on pressure support medication. Patient's creatinine 1.61 and bun 24. Patient has had very little urine output. Patient has been given a total of 120 of Lasix. Critical care management are following. Patient currently has TVP in place. Patient remains in the intensive care unit. On 03/19/2019 patient remains on mechanical ventilation in the intensive care unit. Patient remains on small dose of Levophed. Per nursing staff patient is asystole under TVP. EEG has been ordered. Head CT completed showing no acute process. Keppra has been ordered. Patient currently on Keppra 500 3 times a day. Critical care cardiology and nephrology services are following. Patient's urine output has improved. 03/20/2018 patient is status post dual-chamber pacemaker placement. Patient remains on mechanical ventilation and sedation at this time. Patient has been off pressure support medication per 24 hours. Urine output has improved. Creatinine is trending down. Keppra level is therapeutic at 39.8 03/23/2019 patient remains in the ICU. She's currently on eye BiPAP. She was extubated on 03/21/2019. She had pacemaker placement for complete heart block on 03/20/2019. She is currently in sinus rhythm rate controlled. She is on Keppra for a possible seizure. She's had no further seizures. Chest x-ray showed bilateral pleural effusions, cardiomegaly, diffuse interstitial changes consistent with fluid volume overload and congestive heart failure. Patient was given IV Lasix 40 mg twice a day by nephrology. Patient is confused. She is crying out "help me help me." Discussed with nursing staff to be taking her off the BiPAP shortly. On 03/24/2019 patient is currently resting comfortably in bed. Patient is on nasal cannula. Patient reports that she feels improved. Speech evaluation to assess for patient swallowing. Patient is maintained on IV Lasix 40 mg every 12 hours per nephrology. At this time patient denies chest pain or shortness breath. Patient denies nausea vomiting or diarrhea. Patient denies any urinary burning or frequency. On 03/25/2019 patient is alert and resting comfortably in bed. Patient has been downgraded from intensive care unit. Patient is currently now on a heart healthy diet. Patient was also evaluated by psychiatry. No further changes at this time. Patient is on BiPAP. At this time patient denies chest pain or shortness breath. Patient denies nausea vomiting or diarrhea. Patient denies any urinary burning or frequency On 03/26/2019 patient is alert and resting comfortably in bed. Patient has been moved out of the intensive care unit. This time patient is currently on nasal cannula. Patient denies chest pain or shortness of breath. Patient denies nausea vomiting or diarrhea. Patient denies any urinary burning or frequency On 03/27/2018 patient is alert and resting comfortably in chair. Patient will be DC'd to [facility] today. Patient has been cleared for discharge from pulmonary and cardiology services. At this time patient denies chest pain or shortness of breath. Patient denies nausea vomiting or diarrhea. Patient denies any urinary burning or frequency. Thirty-day Xanax order will be given upon discharge. CMP and CBC to be drawn in 3 days. I performed an examination of the patient and discussed their management with the Nurse Practitioner. I have reviewed the Nurse Practitioner's notes and agree with the documented findings and plan of care Patient Condition at Discharge: Stable Plan - Discharge Summary Discharge Rx Participant: Yes New Discharge Prescriptions: New Metoprolol Succinate (ER) [Toprol XL] 50 mg PO DAILY 30 Days #30 tab.er.24h Dexamethasone [Hexadrol] 4 mg PO DAILY tab Potassium Chloride ER [K-Dur 10] 10 meq PO BID tab.er.prt levETIRAcetam [Keppra] 500 mg PO Q8HR tab Furosemide [Lasix] 40 mg PO BID@0900,1600 tab INSULIN ASPART (NovoLOG) [NovoLOG (formulary)] 0 unit SQ ACHS vial Continue Montelukast [Singulair] 10 mg PO DAILY Albuterol Nebulized [Ventolin Nebulized] 2.5 mg INHALATION RT-DAILY Ergocalciferol [Vitamin D2 (DRISDOL)] 50,000 unit PO MO Folic Acid 1 mg PO DAILY Esomeprazole Magnesium [NexIUM] 40 mg PO BID DULoxetine HCL [Cymbalta] 30 mg PO DAILY buPROPion HCL [Wellbutrin SR] 100 mg PO BID Docusate [Colace] 100 mg PO DAILY Acetaminophen [Tylenol Arthritis] 650 mg PO DAILY PRN PRN Reason: Pain Fluticasone/Vilanterol [Breo Ellipta 100-25 Mcg Inhaler] 1 puff INHALATION RT-DAILY Albuterol Sulfate [Proair Hfa] 1 - 2 puff INHALATION RT-Q6H PRN PRN Reason: Shortness Of Breath Teriparatide [Forteo] 20 mcg SQ DAILY Repaglinide [Prandin] 1 mg PO TID Dexamethasone [Hexadrol] 2 mg PO DAILY #0 ALPRAZolam [Xanax] 0.25 mg PO BID PRN 30 Days #60 tab PRN Reason: Anxiety Discontinued Aspirin EC [Ecotrin Low Dose] 81 mg PO DAILY levETIRAcetam [Keppra] 500 mg PO BID Furosemide [Lasix] 60 mg PO DAILY Discharge Medication List Albuterol Nebulized [Ventolin Nebulized] 2.5 mg INHALATION RT-DAILY 03/22/17 [History] Ergocalciferol [Vitamin D2 (DRISDOL)] 50,000 unit PO MO 03/22/17 [History] Montelukast [Singulair] 10 mg PO DAILY 03/22/17 [History] Esomeprazole Magnesium [NexIUM] 40 mg PO BID 03/24/18 [History] Folic Acid 1 mg PO DAILY 03/24/18 [History] DULoxetine HCL [Cymbalta] 30 mg PO DAILY 11/25/18 [History] buPROPion HCL [Wellbutrin SR] 100 mg PO BID 11/25/18 [History] Acetaminophen [Tylenol Arthritis] 650 mg PO DAILY PRN 02/08/19 [History] Albuterol Sulfate [Proair Hfa] 1 - 2 puff INHALATION RT-Q6H PRN 02/08/19 [History] Docusate [Colace] 100 mg PO DAILY 02/08/19 [History] Fluticasone/Vilanterol [Breo Ellipta 100-25 Mcg Inhaler] 1 puff INHALATION RT- DAILY 02/08/19 [History] Repaglinide [Prandin] 1 mg PO TID 03/17/19 [History] Teriparatide [Forteo] 20 mcg SQ DAILY 03/17/19 [History] ALPRAZolam [Xanax] 0.25 mg PO BID PRN 30 Days #60 tab 03/27/19 [Rx] Dexamethasone [Hexadrol] 2 mg PO DAILY #0 03/27/19 [Rx] Dexamethasone [Hexadrol] 4 mg PO DAILY tab 03/27/19 [Rx] Furosemide [Lasix] 40 mg PO BID@0900,1600 tab 03/27/19 [Rx] INSULIN ASPART (NovoLOG) [NovoLOG (formulary)] 0 unit SQ ACHS vial 03/27/19 [Rx] Metoprolol Succinate (ER) [Toprol XL] 50 mg PO DAILY 30 Days #30 tab.er.24h 03/27/19 [Rx] Potassium Chloride ER [K-Dur 10] 10 meq PO BID tab.er.prt 03/27/19 [Rx] levETIRAcetam [Keppra] 500 mg PO Q8HR tab 03/27/19 [Rx] Follow up Appointment(s)/Referral(s): Marcia Loomis DO [Primary Care Provider] - 1-2 days Nayan Ramirez MD [STAFF PHYSICIAN] - 1 Week Kj Sánchez DO [Doctor of Osteopathic Medicine] - 1 Week Activity/Diet/Wound Care/Special Instructions: 3 L nasal cannula and BiPAP for sleep Activity as tolerated Diet heart healthy consistent carb CBC and CMP on 03/30/2019 Discharge Disposition: TRANSFER TO SNF/ECF
[2019-03-27] MEDS: ALPRAZolam 0.25 MG TAB PO PRN (16:08)
== END 2019-03-27 16:46 | DRG 242 ==
LOC: EC 18:42 → 2SICU 20:56 → 3SCARD 03-25 17:14
PROVIDERS: ADMIT Internal Medicine; ATTEND Internal Medicine
PROC: 5A1945Z Respiratory Ventilation, 24-96 Consecutive Hours (ICD-10-PCS; 2019-03-17)
PROC: 5A1223Z Performance of Cardiac Pacing, Continuous (ICD-10-PCS; 2019-03-17)
PROC: 04HY32Z Insertion of Monitoring Device into Lower Artery, Percutaneous Approach (ICD-10-PCS; 2019-03-17)
PROC: 4A133B1 Monitoring of Arterial Pressure, Peripheral, Percutaneous Approach (ICD-10-PCS; 2019-03-17)
PROC: 4A133J1 Monitoring of Arterial Pulse, Peripheral, Percutaneous Approach (ICD-10-PCS; 2019-03-17)
PROC: 0BH17EZ Insertion of Endotracheal Airway into Trachea, Via Natural or Artificial Opening (ICD-10-PCS; principal; 2019-03-17 20:47)
PROC: 05HB33Z Insertion of Infusion Device into Right Basilic Vein, Percutaneous Approach (ICD-10-PCS; 2019-03-19)
PROC: 0DH67UZ Insertion of Feeding Device into Stomach, Via Natural or Artificial Opening (ICD-10-PCS; 2019-03-19)
PROC: 3E0G76Z Introduction of Nutritional Substance into Upper GI, Via Natural or Artificial Opening (ICD-10-PCS; 2019-03-19)
PROC: 0JH606Z Insertion of Pacemaker, Dual Chamber into Chest Subcutaneous Tissue and Fascia, Open Approach (ICD-10-PCS; 2019-03-20)
PROC: 02H63JZ Insertion of Pacemaker Lead into Right Atrium, Percutaneous Approach (ICD-10-PCS; 2019-03-20)
PROC: 02HK3JZ Insertion of Pacemaker Lead into Right Ventricle, Percutaneous Approach (ICD-10-PCS; 2019-03-20)
PROC: 5A09557 Assistance with Respiratory Ventilation, Greater than 96 Consecutive Hours, Continuous Positive Airway Pressure (ICD-10-PCS; 2019-03-21)
DX: I44.2 Atrioventricular block, complete (principal); N17.0 Acute kidney failure with tubular necrosis; R57.0 Cardiogenic shock; J96.01 Acute respiratory failure with hypoxia; J96.02 Acute respiratory failure with hypercapnia; I50.23 Acute on chronic systolic (congestive) heart failure; E44.0 Moderate protein-calorie malnutrition; J44.1 Chronic obstructive pulmonary disease with (acute) exacerbation; E87.2 Acidosis; E87.1 Hypo-osmolality and hyponatremia; Z68.43 Body mass index [BMI] 50.0-59.9, adult; N39.0 Urinary tract infection, site not specified; L03.114 Cellulitis of left upper limb; L03.113 Cellulitis of right upper limb; L03.116 Cellulitis of left lower limb; L03.115 Cellulitis of right lower limb; Z66 Do not resuscitate; I27.81 Cor pulmonale (chronic); I11.0 Hypertensive heart disease with heart failure; E66.01 Morbid (severe) obesity due to excess calories; I08.2 Rheumatic disorders of both aortic and tricuspid valves; E83.42 Hypomagnesemia; E86.1 Hypovolemia; F03.90 Unspecified dementia, unspecified severity, without behavioral disturbance, psychotic disturbance, mood disturbance, and anxiety; D63.8 Anemia in other chronic diseases classified elsewhere; G40.909 Epilepsy, unspecified, not intractable, without status epilepticus; E11.9 Type 2 diabetes mellitus without complications; F41.9 Anxiety disorder, unspecified; F32.9 Major depressive disorder, single episode, unspecified; M81.0 Age-related osteoporosis without current pathological fracture; I45.2 Bifascicular block; K21.9 Gastro-esophageal reflux disease without esophagitis; H91.90 Unspecified hearing loss, unspecified ear; G47.33 Obstructive sleep apnea (adult) (pediatric); M19.90 Unspecified osteoarthritis, unspecified site; E78.5 Hyperlipidemia, unspecified; I49.5 Sick sinus syndrome; D50.9 Iron deficiency anemia, unspecified; T50.2X5A Adverse effect of carbonic-anhydrase inhibitors, benzothiadiazides and other diuretics, initial encounter; E87.6 Hypokalemia; Z71.3 Dietary counseling and surveillance; Z78.1 Physical restraint status; Z79.82 Long term (current) use of aspirin; Z79.899 Other long term (current) drug therapy; Z90.49 Acquired absence of other specified parts of digestive tract; Z87.891 Personal history of nicotine dependence; Z86.011 Personal history of benign neoplasm of the brain; Z87.01 Personal history of pneumonia (recurrent); Z88.0 Allergy status to penicillin; Z82.5 Family history of asthma and other chronic lower respiratory diseases; Z81.8 Family history of other mental and behavioral disorders
CPT/HCPCS: 33208; 33210; 36410; 36415; 70450; 71045; 76937; 80048; 80053; 80177; 81001; 82550; 82553; 82728; 82805; 83540; 83550; 83605; 83735; 83880; 84100; 84132; 84443; 84484; 85025; 85379; 87040; 87070; 87205; 93306; 94002; 94003; 94640; 94660; 95816; 96365; 96368; 99291; 99292

== ENCOUNTER 2019-03-27 22:38 | Emergency (ER) | payer MEDICARE, OTHER ==
[2019-03-27 22:45] VITALS: BP 138/80; PULSE 82; RESP 16; TEMP 98.1
[2019-03-27] MEDS ORDERED: SODIUM CHLORIDE 0.9% 500 ML 500 ML IV ONE (23:44)
--- NOTE | 2019-03-27 23:48 | ED ---
General Adult HPI - General Source: patient, EMS Mode of arrival: ambulatory Limitations: no limitations <Willy Tsai Ky - Last Filed: 03/28/19 01:33> <Arvind Chowdary - Last Filed: 03/28/19 03:07> - General Chief complaint: Psychiatric Symptoms Stated complaint: mental health Time Seen by Provider: 03/27/19 23:02 - History of Present Illness Initial comments: Dictation was produced using [employer] dictation software. please excuse any grammatical, word or spelling errors. Chief Complaint: 73-year-old female with a long list of comorbidities presents with altered mental status. History of Present Illness: Patient is 71-year-old female she was just admitted to our hospital discharge. She was transferred from rehab facility for acute delirium. Daughter who was at bedside reports that patient has been having delusional behavior and aggression towards others. She's been also having visual and auditory hallucinations. She is brought here for psychiatric evaluation. According to daughter she has been behaving this way for the last week or so. Daughter reports that they're unable to care for her at the rehab facility given that she requires intensive monitoring. Patient has no complaint at this time. Daughter reports that patient has a history of meningioma that was recommended by a neurosurgeon to have intervened on however patient did not want that to happen. The ROS documented in this emergency department record has been reviewed and confirmed by me. Those systems with pertinent positive or negative responses have been documented in the HPI. All other systems are other negative and/or noncontributory. PHYSICAL EXAM: General Impression: Alert and oriented x2/3, no acute distress, obese HEENT: Normocephalic atraumatic, extra-ocular movements intact, pupils equal and reactive to light bilaterally, mucous membranes moist. Cardiovascular: Heart regular rate and rhythm, S1&S2 audible, no murmurs, rubs or gallops Chest: Lungs clear to auscultation bilaterally, no rhonchi, no wheeze, no rales Abdomen: Bowel sounds present, abdomen soft, non-tender, non-distended, no organomegaly Musculoskeletal: Pulses present and equal in all extremities, no peripheral edema Motor: no focal deficits noted Neurological: CN II-XII grossly intact, no focal motor or sensory deficits noted Skin: Intact with no visualized rashes Psych: Disorganized thinking, tangential speech ED course: 73-year-old female presents with chief complaint of altered mental status. Clinical presentation is concerning for acute delirium. Vital signs upon arrival are within acceptable limits. Patient care signed out to Dr. Chowdary. EKG interpretation: Ventricular rate 91, sinus rhythm, SC interval 160, QS 134, QTC 467. No SC prolongation, no QTC prolongation, no ST or T-wave changes noted. Overall, this EKG is unremarkable (Willy Tsai) - Related Data Home Medications Medication Instructions Recorded Confirmed Albuterol Nebulized [Ventolin 2.5 mg INHALATION RT-DAILY 03/22/17 03/27/19 Nebulized] Ergocalciferol [Vitamin D2 50,000 unit PO MO 03/22/17 03/27/19 (DRISDOL)] Montelukast [Singulair] 10 mg PO DAILY 03/22/17 03/27/19 Esomeprazole Magnesium [NexIUM] 40 mg PO BID 03/24/18 03/27/19 Folic Acid 1 mg PO DAILY 03/24/18 03/27/19 DULoxetine HCL [Cymbalta] 30 mg PO DAILY 11/25/18 03/27/19 buPROPion HCL [Wellbutrin SR] 100 mg PO BID 11/25/18 03/27/19 Acetaminophen [Tylenol Arthritis] 650 mg PO DAILY PRN 02/08/19 03/27/19 Albuterol Sulfate [Proair Hfa] 1 - 2 puff INHALATION RT-Q6H PRN 02/08/19 03/27/19 Docusate [Colace] 100 mg PO DAILY 02/08/19 03/27/19 Fluticasone/Vilanterol [Breo 1 puff INHALATION RT-DAILY 02/08/19 03/27/19 Ellipta 100-25 Mcg Inhaler] Repaglinide [Prandin] 1 mg PO TID 03/17/19 03/27/19 Teriparatide [Forteo] 20 mcg SQ DAILY 03/17/19 03/27/19 Previous Rx's Medication Instructions Recorded ALPRAZolam [Xanax] 0.25 mg PO BID PRN 30 Days #60 tab 03/27/19 Dexamethasone [Hexadrol] 2 mg PO DAILY #0 03/27/19 Dexamethasone [Hexadrol] 4 mg PO DAILY tab 03/27/19 Ferrous Sulfate [Feosol] 325 mg PO BID 30 Days #60 tab 03/27/19 Furosemide [Lasix] 40 mg PO BID@0900,1600 tab 03/27/19 INSULIN ASPART (NovoLOG) [NovoLOG 0 unit SQ ACHS vial 03/27/19 (formulary)] Metoprolol Succinate (ER) [Toprol 50 mg PO DAILY 30 Days #30 03/27/19 XL] tab.er.24h Potassium Chloride ER [K-Dur 10] 10 meq PO BID tab.er.prt 03/27/19 levETIRAcetam [Keppra] 500 mg PO Q8HR tab 03/27/19 Allergies Allergy/AdvReac Type Severity Reaction Status Date / Time Penicillins Allergy Rash/Hives Verified 03/27/19 22:43 Review of Systems ROS Other: All systems not noted in ROS Statement are negative. <Willy Tsai - Last Filed: 03/28/19 01:33> ROS Other: All systems not noted in ROS Statement are negative. <Arivnd Chowdary - Last Filed: 03/28/19 03:07> ROS Statement: Those systems with pertinent positive or pertinent negative responses have been documented in the HPI. 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 History of Any Multi-Drug Resistant Organisms: None Reported Past Surgical History: Cholecystectomy, Tonsillectomy Additional Past Surgical History / Comment(s): 11/18 TVP placement with no permanent pacer Past Anesthesia/Blood Transfusion Reactions: No Reported Reaction Past Psychological History: Anxiety, Depression Smoking Status: Former smoker Past Alcohol Use History: None Reported Past Drug Use History: None Reported - Past Family History Mother Family Medical History: Asthma Additional Family Medical History / Comment(s): depression Father Additional Family Medical History / Comment(s): ETOH <Willy Tsai - Last Filed: 03/28/19 01:33> General Exam Limitations: no limitations <Willy Tsai - Last Filed: 03/28/19 01:33> Course Vital Signs 03/27/19 22:42 Temperature 98.1 F Pulse Rate 82 Respiratory 16 Rate Blood Pressure 138/80 O2 Sat by Pulse 98 Oximetry Medical Decision Making - Lab Data Result diagrams: 03/28/19 01:09 <Willy Tsai - Last Filed: 03/28/19 01:33> - Lab Data Result diagrams: 03/28/19 01:09 03/28/19 01:09 <Arvind Chowdary - Last Filed: 03/28/19 03:07> - Medical Decision Making I receive this patient as a sign out, pending the result of her lab tests. When I receive the lab data I went and discussed results with the patient and with the patient's daughter who is at the bedside. I did discussed with them Dr. Tsai's recommendation that she be further evaluated by a neurologist and/or neurosurgery, regarding the symptoms that she has been having. At this point, the patient refuses, stating that she wants to just go back home to rest. I did express concerns regarding the CT findings. Patient reports that this is unknown finding and that she takes steroids as a result. She states that she does have follow-up physician, and her daughter verifies this. The patient at this point does want to go back, and at this point family is supportive, despite our recommendation for further evaluation and treatment. Further I did want to perform a venous blood gas, but at this point further testing declined by the patient and daughter is supportive of her decision. They will return should symptoms recur or any new symptoms develop. (Arvind Chowdary) - Lab Data Lab Results 03/28/19 03/28/19 03/28/19 Range/Units 01:09 01:09 01:09 WBC 12.7 H (3.8-10.6) k/uL RBC 3.33 L (3.80-5.40) m/uL Hgb 10.0 L (11.4-16.0) gm/dL Hct 30.2 L (34.0-46.0) % MCV 90.8 (80.0-100.0) fL MCH 30.1 (25.0-35.0) pg MCHC 33.1 (31.0-37.0) g/dL RDW 14.9 (11.5-15.5) % Plt Count 325 (150-450) k/uL Neutrophils % 82 % Lymphocytes % 10 % Monocytes % 6 % Eosinophils % 1 % Basophils % 0 % Neutrophils # 10.4 H (1.3-7.7) k/uL Lymphocytes # 1.3 (1.0-4.8) k/uL Monocytes # 0.7 (0-1.0) k/uL Eosinophils # 0.1 (0-0.7) k/uL Basophils # 0.0 (0-0.2) k/uL PT (9.0-12.0) sec INR (<1.2) APTT (22.0-30.0) sec Sodium 138 (137-145) mmol/L Potassium 3.9 (3.5-5.1) mmol/L Chloride 91 L (98-107) mmol/L Carbon Dioxide 39 H (22-30) mmol/L Anion Gap 8 mmol/L BUN 26 H (7-17) mg/dL Creatinine 1.22 H (0.52-1.04) mg/dL Est GFR (CKD-EPI)AfAm 51 (>60 ml/min/1.73 sqM) Est GFR (CKD-EPI)NonAf 44 (>60 ml/min/1.73 sqM) Glucose 97 (74-99) mg/dL Calcium 9.4 (8.4-10.2) mg/dL Total Bilirubin 0.4 (0.2-1.3) mg/dL AST 33 (14-36) U/L ALT 53 H (9-52) U/L Alkaline Phosphatase 84 (38-126) U/L Ammonia <9 (<30) umol/L Creatine Kinase 50 (30-135) U/L Troponin I (0.000-0.034) ng/mL Total Protein 6.4 (6.3-8.2) g/dL Albumin 3.8 (3.5-5.0) g/dL 03/28/19 03/28/19 Range/Units 01:09 01:09 WBC (3.8-10.6) k/uL RBC (3.80-5.40) m/uL Hgb (11.4-16.0) gm/dL Hct (34.0-46.0) % MCV (80.0-100.0) fL MCH (25.0-35.0) pg MCHC (31.0-37.0) g/dL RDW (11.5-15.5) % Plt Count (150-450) k/uL Neutrophils % % Lymphocytes % % Monocytes % % Eosinophils % % Basophils % % Neutrophils # (1.3-7.7) k/uL Lymphocytes # (1.0-4.8) k/uL Monocytes # (0-1.0) k/uL Eosinophils # (0-0.7) k/uL Basophils # (0-0.2) k/uL PT 10.4 (9.0-12.0) sec INR 1.0 (<1.2) APTT 24.7 (22.0-30.0) sec Sodium (137-145) mmol/L Potassium (3.5-5.1) mmol/L Chloride (98-107) mmol/L Carbon Dioxide (22-30) mmol/L Anion Gap mmol/L BUN (7-17) mg/dL Creatinine (0.52-1.04) mg/dL Est GFR (CKD-EPI)AfAm (>60 ml/min/1.73 sqM) Est GFR (CKD-EPI)NonAf (>60 ml/min/1.73 sqM) Glucose (74-99) mg/dL Calcium (8.4-10.2) mg/dL Total Bilirubin (0.2-1.3) mg/dL AST (14-36) U/L ALT (9-52) U/L Alkaline Phosphatase (38-126) U/L Ammonia (<30) umol/L Creatine Kinase (30-135) U/L Troponin I 0.023 (0.000-0.034) ng/mL Total Protein (6.3-8.2) g/dL Albumin (3.5-5.0) g/dL Disposition <Willy Tsai - Last Filed: 03/28/19 01:33> Is patient prescribed a controlled substance at d/c from ED?: No <Arvind Chowdary - Last Filed: 03/28/19 03:07> Clinical Impression: Change in mental status, Vasogenic brain edema Disposition: Left Against Medical Advice Condition: Undetermined Referrals: Marcia Loomis DO [Primary Care Provider] - 1-2 days
--- NOTE | 2019-03-28 00:43 | CT ---
EXAM: CT Head Without Intravenous Contrast CLINICAL HISTORY: ITS.REASON CT Reason: altered mental status TECHNIQUE: Axial computed tomography images of the head/brain without intravenous contrast. This CT exam was performed using one or more of the following dose reduction techniques: automated exposure control, adjustment of the mA and/or kV according to patient size, and/or use of iterative reconstruction technique. COMPARISON: 03/18 FINDINGS: Persistent widespread vasogenic edema in the right cerebral hemisphere, probably representing underlying infiltrating mass. Correlate with contrast-enhanced MRI. Persistent partial effacement of the right lateral ventricle. Minimal left shift. No new areas of edema. No hemorrhage. IMPRESSION: See above
--- NOTE | 2019-03-28 00:47 | XR ---
EXAM: XR Chest, 2 Views CLINICAL HISTORY: ITS.REASON XR Reason: altered mental status TECHNIQUE: Frontal and lateral views of the chest. COMPARISON: No relevant prior studies available. FINDINGS: Lungs: Atelectasis versus scar versus loculated fluid in the mid and lower right lung, no infiltrate Pleural space: See above. No pneumothorax. Heart: No suspicious enlargement. Mediastinum: Unremarkable. Bones/joints: No acute fracture. IMPRESSION: See above
[2019-03-28 01:21] LABS: Basophils % (A) 0 %; Eosinophils # (A) 0.1 k/uL (0-0.7); Eosinophils % (A) 1 %; HCT 30.2 % (34.0-46.0); Lymphocytes # (A) 1.3 k/uL (1.0-4.8); Lymphocytes % (A) 10 %; MCH 30.1 pg (25.0-35.0); MCHC 33.1 g/dL (31.0-37.0); MCV 90.8 fL (80.0-100.0); Mean Platelet Volume 7.2; Monocytes # (A) 0.7 k/uL (0-1.0); Monocytes % (A) 6 %; Neutrophils # (A) 10.4 k/uL (1.3-7.7); Neutrophils % (A) 82 %; Platelet Count 325 k/uL (150-450); RBC 3.33 m/uL (3.80-5.40); RDW 14.9 % (11.5-15.5); WBC 12.7 k/uL (3.8-10.6)
[2019-03-28 01:33] LABS: Partial Thromboplastin Time 24.7 sec (22.0-30.0); Prothrombin Time 10.4 sec (9.0-12.0)
[2019-03-28 01:34] LABS: Albumin 3.8 g/dL (3.5-5.0); Calcium 9.4 mg/dL (8.4-10.2); Potassium 3.9 mmol/L (3.5-5.1); Total Bilirubin 0.4 mg/dL (0.2-1.3); Total Protein 6.4 g/dL (6.3-8.2)
== END 2019-03-28 03:21 | disposition left against medical advice (07) ==
LOC: EC 22:38
DX: G93.6 Cerebral edema (principal); R41.82 Altered mental status, unspecified; R44.0 Auditory hallucinations; R44.1 Visual hallucinations; J44.9 Chronic obstructive pulmonary disease, unspecified; I11.0 Hypertensive heart disease with heart failure; I50.9 Heart failure, unspecified; K21.9 Gastro-esophageal reflux disease without esophagitis; F41.9 Anxiety disorder, unspecified; F32.9 Major depressive disorder, single episode, unspecified; E11.9 Type 2 diabetes mellitus without complications; G47.30 Sleep apnea, unspecified; Z79.51 Long term (current) use of inhaled steroids; Z79.899 Other long term (current) drug therapy; Z88.0 Allergy status to penicillin; Z87.891 Personal history of nicotine dependence
CPT/HCPCS: 36415; 70450; 71046; 80053; 82140; 82550; 84484; 85025; 85610; 85730; 93005; 99285

== ENCOUNTER 2019-06-01 20:50 | Emergency (ER) | payer MEDICARE, OTHER ==
[2019-06-01 21:13] VITALS: BP 121/81; PULSE 80; RESP 18; TEMP 98.1
[2019-06-01] MEDS ORDERED: IBUPROFEN 600 MG TAB PO STA (21:22)
--- NOTE | 2019-06-01 21:49 | XR ---
EXAMINATION TYPE: XR knee 4V RT DATE OF EXAM: 06/01/2019 COMPARISON: NONE HISTORY: Pain TECHNIQUE: 4 views FINDINGS: There is narrowing of the lateral joint space with some genu valgus. There is spurring of t he femoral and tibial condyles. There is mild spurring on the patella. I see no fracture. There is mi ld knee joint effusion. IMPRESSION: Moderate osteoarthritis that is worse in the lateral joint space. No fracture.
--- NOTE | 2019-06-01 22:51 | ED ---
General Adult HPI - General Chief complaint: Extremity Problem,Nontraumatic Stated complaint: Rt Knee Pain Time Seen by Provider: 06/01/19 20:57 Source: patient, EMS, RN notes reviewed, old records reviewed Mode of arrival: EMS Limitations: no limitations - History of Present Illness Initial comments: 73-year-old female patient presents to ED if chronic complaint of right knee pain. Patient reports that she has pain in anterior aspect of her knee. Patient was this has been going on for greater than 10 years. Denies any new or concerning symptoms. Denies any other complaints. Denies any chest pain from his breath nausea vomiting or diarrhea. Systemic: Pt denies fatigue, fever/chills, rash. Pt denies weakness, night sweats, weight loss. Neuro: Pt denies headache, visual disturbances, syncope or pre-syncope. HEENT: Pt denies ocular discharge or irritation, otalgia, rhinorrhea, pharyngitis or notable lymphadenopathy. Cardiopulmonary: Pt denies chest pain, SOB, heart palpitations, dyspnea on exertion. Abdominal/GI: Pt denies abdominal pain, n/v/d. : Pt denies dysuria, burning w/ urination, frequency/urgency. Denies new onset urinary or bowel incontinence. MSK: Pt denies loss of strength or function in extremities. Neuro: Pt denies new onset weakness, paresthesias. - Related Data Home Medications Medication Instructions Recorded Confirmed Albuterol Nebulized [Ventolin 2.5 mg INHALATION RT-DAILY@0903/22/17 06/01/19 Nebulized] Ergocalciferol [Vitamin D2 50,000 unit PO MO 03/22/17 06/01/19 (DRISDOL)] Montelukast [Singulair] 10 mg PO DAILY@209903/22/17 06/01/19 Folic Acid 1 mg PO DAILY@0903/24/18 06/01/19 DULoxetine HCL [Cymbalta] 30 mg PO DAILY@209911/25/18 06/01/19 Acetaminophen [Tylenol Arthritis] 650 mg PO DAILY PRN 02/08/19 06/01/19 Albuterol Sulfate [Proair Hfa] 1 - 2 puff INHALATION RT-Q6H PRN 02/08/19 06/01/19 Docusate [Colace] 100 mg PO DAILY@209902/08/19 06/01/19 Fluticasone/Vilanterol [Breo 1 puff INHALATION RT-DAILY@209902/08/19 06/01/19 Ellipta 100-25 Mcg Inhaler] ALPRAZolam [Xanax] 0.25 mg PO BID@0900,2100 06/01/19 06/01/19 Denosumab [Prolia] 60 mg SQ Q6M 06/01/19 06/01/19 Dexamethasone [Hexadrol] 2 mg PO DAILY@0900 06/01/19 06/01/19 Esomeprazole Magnesium [NexIUM] 40 mg PO DAILY@0900 06/01/19 06/01/19 Ferrous Sulfate [Feosol] 325 mg PO BID@0900,2100 06/01/19 06/01/19 Furosemide [Lasix] 40 mg PO BID@0600,1400 06/01/19 06/01/19 Mag Hydrox/Al Hydrox/Simeth 30 ml PO Q4H 06/01/19 06/01/19 [Maalox] Metoprolol Succinate (ER) [Toprol 50 mg PO DAILY@0900 06/01/19 06/01/19 XL] Nateglinide [Starlix] 120 mg PO AC-TID 06/01/19 06/01/19 Potassium Chloride ER [K-Dur 10] 10 meq PO BID@0900,1600 06/01/19 06/01/19 buPROPion [Wellbutrin] 100 mg PO BID@0900,2100 06/01/19 06/01/19 levETIRAcetam [Keppra] 500 mg PO Q8HR@0600,1400,2200 06/01/19 06/01/19 methylPREDNISolone [Medrol Dose See Taper PO DAILY 06/01/19 06/01/19 Pack] Previous Rx's Medication Instructions Recorded Ibuprofen [Motrin] 600 mg PO Q12HR PRN #20 day 06/01/19 methylPREDNISolone Dose Pack 4 mg PO DIRECTED #21 package 06/01/19 [Medrol Dose Pack] Allergies Allergy/AdvReac Type Severity Reaction Status Date / Time Penicillins Allergy Rash/Hives Verified 03/27/19 22:43 Review of Systems ROS Statement: Those systems with pertinent positive or pertinent negative responses have been documented in the HPI. ROS Other: All systems not noted in ROS Statement are negative. 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 History of Any Multi-Drug Resistant Organisms: ESBL Date of last positivie culture/infection: 04/17/19 ESBL E.coli MDRO Source:: Urine Past Surgical History: Cholecystectomy, Tonsillectomy Additional Past Surgical History / Comment(s): 11/18 TVP placement with no permanent pacer Past Anesthesia/Blood Transfusion Reactions: No Reported Reaction Past Psychological History: Anxiety, Depression Smoking Status: Former smoker Past Alcohol Use History: None Reported Past Drug Use History: None Reported - Past Family History Mother Family Medical History: Asthma Additional Family Medical History / Comment(s): depression Father Additional Family Medical History / Comment(s): ETOH General Exam - General Exam Comments Initial Comments: Constitutional: NAD, AOX3, Pt has pleasant affect. HEENT: NC/AT, trachea midline, neck supple, no lymphadenopathy. Posterior pharynx non erythematous, without exudates. External ears appear normal, without discharge. Mucous membranes moist. Eyes PERRLA, EOM intact. There is no scleral icterus. No pallor noted. Cardiopulmonary: RRR, no murmurs, rubs or gallops, no JVD noted. Lungs CTAB in anterior and posterior nolan. No peripheral edema. Abdominal exam: Abdomen soft and non-distended. Abdomen non-tender to palpation in all 4 quadrants. Bowel sounds active in LLQ. No hepatosplenomegaly. No ecchymosis Neuro: CN II-XII grossly intact. No nuchal rigidity. No raccon eyes, no bernal sign, no hemotympanum. No cervical spinal tenderness. MSK: Anterior aspect of right knee mildly tender to palpation, no erythema, full active range of motion of joint. No posterior calf tenderness bilaterally, homans sign negative bilaterally. Posterior tibialis and radial pulse +2 bilaterally. Sensation intact in upper and lower extremities. Full active ROM in upper and lower extremities, 5/5 stregnth. Limitations: no limitations Course Vital Signs 06/01/19 21:03 Temperature 98.1 F Pulse Rate 80 Respiratory 18 Rate Blood Pressure 121/81 O2 Sat by Pulse 99 Oximetry Medical Decision Making - Medical Decision Making 73-year-old female patient presents to ED if chronic complaint of right knee pain. Patient reports that she has pain in anterior aspect of her knee. Patient was this has been going on for greater than 10 years. Denies any new or concerning symptoms. Denies any other complaints. Denies any chest pain from his breath nausea vomiting or diarrhea. Patient also stable, afebrile. Physical exam displayed: Anterior aspect of right knee mildly tender to palpation, no erythema, full active range of motion of joint. Plain film of the knee displayed mild osteoarthritis. Patient prescribed ibuprofen. The patient requests patient also prescribed Medrol Dosepak. Patient will be given orthopedic referral. Will return to ER if condition worsens. Case discussed with Dr. Tsai. Disposition Clinical Impression: Knee pain, chronic Disposition: HOME SELF-CARE Condition: Stable Instructions (If sedation given, give patient instructions): Knee Pain (ED) Additional Instructions: Patient to adhere to previously discussed treatment plan and will take medication(s) as directed. Patient to follow up with PCP in 1-2 days. Patient to return to ED if symptoms do not improve. Follow-up with primary care physician and orthopedic consult. Take medications as directed. Prescriptions: methylPREDNISolone Dose Pack [Medrol Dose Pack] 4 mg PO DIRECTED #21 package Ibuprofen [Motrin] 600 mg PO Q12HR PRN #20 day PRN Reason: Pain Is patient prescribed a controlled substance at d/c from ED?: No Referrals: Kimberley Sharif MD [Primary Care Provider] - 1-2 days Mckay Love MD [STAFF PHYSICIAN] - 1-2 days
== END 2019-06-01 23:18 | disposition home or self-care (01) ==
LOC: EC 20:50
DX: M25.561 Pain in right knee (principal); G89.29 Other chronic pain; M17.11 Unilateral primary osteoarthritis, right knee; J44.9 Chronic obstructive pulmonary disease, unspecified; I11.0 Hypertensive heart disease with heart failure; I50.9 Heart failure, unspecified; E11.9 Type 2 diabetes mellitus without complications; F03.90 Unspecified dementia, unspecified severity, without behavioral disturbance, psychotic disturbance, mood disturbance, and anxiety; K21.9 Gastro-esophageal reflux disease without esophagitis; H91.90 Unspecified hearing loss, unspecified ear; G40.909 Epilepsy, unspecified, not intractable, without status epilepticus; F32.9 Major depressive disorder, single episode, unspecified; F41.9 Anxiety disorder, unspecified; Z87.891 Personal history of nicotine dependence; Z88.0 Allergy status to penicillin; Z79.51 Long term (current) use of inhaled steroids; Z79.52 Long term (current) use of systemic steroids; Z79.899 Other long term (current) drug therapy; Z79.84 Long term (current) use of oral hypoglycemic drugs; Z87.01 Personal history of pneumonia (recurrent); Z86.011 Personal history of benign neoplasm of the brain
CPT/HCPCS: 99284

== ENCOUNTER 2019-07-04 10:50 | Emergency (ER) | payer MEDICARE, OTHER ==
[2019-07-04] MEDS ORDERED: ONDANSETRON 4 MG/2 ML VIAL IVP STA (11:17)
[2019-07-04] MEDS ORDERED: SODIUM CHLORIDE 0.9% 1,000 ML IV STA (11:17)
[2019-07-04] MEDS ORDERED: FAMOTIDINE 20 MG/2 ML VIAL IV STA (11:18)
--- NOTE | 2019-07-04 11:20 | ED ---
General Adult HPI - General Chief complaint: Weakness Stated complaint: Weakness Time Seen by Provider: 07/04/19 11:01 Source: patient, RN notes reviewed Mode of arrival: EMS Limitations: no limitations - History of Present Illness Initial comments: Patient is a pleasant 74-year-old female transferred [facility] [place] for generalized weakness. Patient and needs to having urinary frequency and pressure. Patient admits to feeling nausea. Patient states she feels somewhat weak all over. Patient states occasionally she feels confused however not specifically at this time. Patient states this is actually a chronic problem for her. No isolated area of weakness. No headache. No fevers. - Related Data Home Medications Medication Instructions Recorded Confirmed Albuterol Nebulized [Ventolin 2.5 mg INHALATION RT-DAILY@89903/22/17 07/04/19 Nebulized] Ergocalciferol [Vitamin D2 50,000 unit PO TU 03/22/17 07/04/19 (DRISDOL)] Montelukast [Singulair] 10 mg PO DAILY@209903/22/17 07/04/19 Folic Acid 1 mg PO DAILY@89903/24/18 07/04/19 Acetaminophen [Tylenol Arthritis] 650 mg PO DAILY PRN 02/08/19 07/04/19 Albuterol Sulfate [Proair Hfa] 1 - 2 puff INHALATION RT-Q6H PRN 02/08/19 Docusate [Colace] 100 mg PO DAILY@209902/08/19 07/04/19 Fluticasone/Vilanterol [Breo 1 puff INHALATION RT-DAILY@209902/08/19 07/04/19 Ellipta 100-25 Mcg Inhaler] ALPRAZolam [Xanax] 0.25 mg PO BID@0900,209906/01/19 07/04/19 Denosumab [Prolia] 60 mg SQ Q6M 06/01/19 07/04/19 Dexamethasone [Hexadrol] 2 mg PO DAILY@00 06/01/19 07/04/19 Esomeprazole Magnesium [NexIUM] 40 mg PO DAILY@00 06/01/19 07/04/19 Ferrous Sulfate [Feosol] 325 mg PO BID@0900,209906/01/19 07/04/19 Furosemide [Lasix] 40 mg PO BID@0600,1400 07/01/19 08/03/19 Mag Hydrox/Al Hydrox/Simeth 30 ml PO Q4H 06/01/19 07/04/19 [Maalox] Metoprolol Succinate (ER) [Toprol 50 mg PO DAILY@0900 06/01/19 07/04/19 XL] Nateglinide [Starlix] 120 mg PO AC-TID 06/01/19 07/04/19 Potassium Chloride ER [K-Dur 10] 10 meq PO BID@0900,1600 06/01/19 07/04/19 buPROPion [Wellbutrin] 100 mg PO BID@0900,2100 06/01/19 07/04/19 levETIRAcetam [Keppra] 500 mg PO Q8HR@0600,1400,2200 06/01/19 07/04/19 DULoxetine HCL [Cymbalta] 40 mg PO HS@2100 07/04/19 07/04/19 Furosemide [Lasix] 40 mg PO BID@0600,1400 07/04/19 07/04/19 Loratadine [Claritin] 10 mg PO HS@2100 07/04/19 07/04/19 Previous Rx's Medication Instructions Recorded Ibuprofen [Motrin] 600 mg PO Q12HR PRN #20 day 06/01/19 Ondansetron Odt [Zofran Odt] 4 mg PO Q8HR PRN #10 tab 07/04/19 Sulfamethox-Tmp 800-160Mg [Bactrim 1 each PO Q12HR #20 tab 07/04/19 DS 800-160 mg] Allergies Allergy/AdvReac Type Severity Reaction Status Date / Time Penicillins Allergy Rash/Hives Verified 07/04/19 13:55 Review of Systems ROS Statement: Those systems with pertinent positive or pertinent negative responses have been documented in the HPI. ROS Other: All systems not noted in ROS Statement are negative. Constitutional: Denies: fever Eyes: Denies: eye pain ENT: Denies: ear pain Respiratory: Denies: cough, dyspnea Cardiovascular: Denies: chest pain Endocrine: Denies: fatigue Gastrointestinal: Reports: nausea. Denies: abdominal pain, vomiting Genitourinary: Reports: urgency, frequency Musculoskeletal: Denies: back pain Skin: Denies: rash Neurological: Reports: as per HPI. 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 History of Any Multi-Drug Resistant Organisms: ESBL Date of last positivie culture/infection: 04/17/19 ESBL E.coli MDRO Source:: Urine Past Surgical History: Cholecystectomy, Tonsillectomy Additional Past Surgical History / Comment(s): 11/18 TVP placement with no permanent pacer Past Anesthesia/Blood Transfusion Reactions: No Reported Reaction Past Psychological History: Anxiety, Depression Smoking Status: Former smoker Past Alcohol Use History: None Reported Past Drug Use History: None Reported - Past Family History Mother Family Medical History: Asthma Additional Family Medical History / Comment(s): depression Father Additional Family Medical History / Comment(s): ETOH General Exam Limitations: no limitations General appearance: alert, in no apparent distress, obese Head exam: Present: atraumatic Eye exam: Present: normal appearance, PERRL, EOMI ENT exam: Present: normal oropharynx Neck exam: Present: normal inspection Respiratory exam: Present: normal lung sounds bilaterally Cardiovascular Exam: Present: regular rate, normal rhythm GI/Abdominal exam: Present: soft. Absent: distended, tenderness, guarding, rebound, rigid Extremities exam: Present: pedal edema (+2 pedal edema bilaterally with mild erythema. Patient states this is chronic.). Absent: calf tenderness Neurological exam: Present: alert Expanded Neurological exam: Present: protecting the airway Patient oriented to: Present: person, place, time Speech: Present: fluid speech Motor strength exam: RUE: 5, LUE: 5, RLE: 4, LLE: 4 Eye Response: (4) open spontaneously Motor Response: (6) obeys commands Verbal Response: (5) oriented Psychiatric exam: Present: normal affect, normal mood Skin exam: Present: normal color Course Vital Signs 07/04/19 11:03 Temperature 98.4 F Pulse Rate 96 Respiratory 18 Rate Blood Pressure 114/55 O2 Sat by Pulse 98 Oximetry EKG Findings - EKG Comments: EKG Findings:: Normal sinus rhythm 98. WI 172. QRS 146. QT 384. QTC 490. Right axis. Nonspecific intraventricular block. Nonspecific T waves. Medical Decision Making - Medical Decision Making Patient reevaluated and resting comfortably in bed. No focal weakness. Daughter did question if there may have been somewhat arm weakness a day or 2 ago. She is made aware of limitations of computed tomography scan of the brain and that TIA has not been completely ruled out at this time. Daughter and patient did not have concern for TIA and did not want patient admitted for further evaluation. Patient does have known history of previous meningioma and edema. Patient does see a neurologist for this and has been advised to have surgery however she has refused that. Patient and daughter requests discharge home. Case was discussed with Dr. Prado who did feel patient could be treated with antibiotics and return if symptoms worsen. - Lab Data Result diagrams: 07/04/19 11:35 07/04/19 11:35 Lab Results 07/04/19 07/04/19 07/04/19 Range/Units 11:35 11:35 11:35 WBC 10.6 (3.8-10.6) k/uL RBC 3.49 L (3.80-5.40) m/uL Hgb 10.6 L (11.4-16.0) gm/dL Hct 32.4 L (34.0-46.0) % MCV 92.8 (80.0-100.0) fL MCH 30.4 (25.0-35.0) pg MCHC 32.8 (31.0-37.0) g/dL RDW 15.4 (11.5-15.5) % Plt Count 323 (150-450) k/uL Neutrophils % 78 % Lymphocytes % 12 % Monocytes % 5 % Eosinophils % 3 % Basophils % 1 % Neutrophils # 8.3 H (1.3-7.7) k/uL Lymphocytes # 1.2 (1.0-4.8) k/uL Monocytes # 0.6 (0-1.0) k/uL Eosinophils # 0.3 (0-0.7) k/uL Basophils # 0.1 (0-0.2) k/uL PT (9.0-12.0) sec INR (<1.2) APTT (22.0-30.0) sec Sodium 134 L (137-145) mmol/L Potassium 3.7 (3.5-5.1) mmol/L Chloride 87 L (98-107) mmol/L Carbon Dioxide 38 H (22-30) mmol/L Anion Gap 9 mmol/L BUN 19 H (7-17) mg/dL Creatinine 1.05 H (0.52-1.04) mg/dL Est GFR (CKD-EPI)AfAm 61 (>60 ml/min/1.73 sqM) Est GFR (CKD-EPI)NonAf 53 (>60 ml/min/1.73 sqM) Glucose 121 H (74-99) mg/dL Plasma Lactic Acid Margarito 1.3 (0.7-2.0) mmol/L Calcium 8.2 L (8.4-10.2) mg/dL Magnesium 2.0 (1.6-2.3) mg/dL Total Bilirubin 0.6 (0.2-1.3) mg/dL AST 24 (14-36) U/L ALT 31 (9-52) U/L Alkaline Phosphatase 79 (38-126) U/L Creatine Kinase 52 (30-135) U/L Troponin I (0.000-0.034) ng/mL Total Protein 6.4 (6.3-8.2) g/dL Albumin 3.5 (3.5-5.0) g/dL Urine Color Urine Appearance (Clear) Urine pH (5.0-8.0) Ur Specific [place] (1.001-1.035) Urine Protein (Negative) Urine Glucose (UA) (Negative) Urine Ketones (Negative) Urine Blood (Negative) Urine Nitrite (Negative) Urine Bilirubin (Negative) Urine Urobilinogen (<2.0) mg/dL Ur Leukocyte Esterase (Negative) Urine RBC (0-5) /hpf Urine WBC (0-5) /hpf Ur Squamous Epith Cells (0-4) /hpf Urine Bacteria (None) /hpf Hyaline Casts (0-2) /lpf Urine Mucus (None) /hpf 07/04/19 07/04/19 07/04/19 Range/Units 11:35 11:35 12:20 WBC (3.8-10.6) k/uL RBC (3.80-5.40) m/uL Hgb (11.4-16.0) gm/dL Hct (34.0-46.0) % MCV (80.0-100.0) fL MCH (25.0-35.0) pg MCHC (31.0-37.0) g/dL RDW (11.5-15.5) % Plt Count (150-450) k/uL Neutrophils % % Lymphocytes % % Monocytes % % Eosinophils % % Basophils % % Neutrophils # (1.3-7.7) k/uL Lymphocytes # (1.0-4.8) k/uL Monocytes # (0-1.0) k/uL Eosinophils # (0-0.7) k/uL Basophils # (0-0.2) k/uL PT 9.7 (9.0-12.0) sec INR 0.9 (<1.2) APTT 22.9 (22.0-30.0) sec Sodium (137-145) mmol/L Potassium (3.5-5.1) mmol/L Chloride (98-107) mmol/L Carbon Dioxide (22-30) mmol/L Anion Gap mmol/L BUN (7-17) mg/dL Creatinine (0.52-1.04) mg/dL Est GFR (CKD-EPI)AfAm (>60 ml/min/1.73 sqM) Est GFR (CKD-EPI)NonAf (>60 ml/min/1.73 sqM) Glucose (74-99) mg/dL Plasma Lactic Acid Margarito (0.7-2.0) mmol/L Calcium (8.4-10.2) mg/dL Magnesium (1.6-2.3) mg/dL Total Bilirubin (0.2-1.3) mg/dL AST (14-36) U/L ALT (9-52) U/L Alkaline Phosphatase (38-126) U/L Creatine Kinase (30-135) U/L Troponin I <0.012 (0.000-0.034) ng/mL Total Protein (6.3-8.2) g/dL Albumin (3.5-5.0) g/dL Urine Color Yellow Urine Appearance Cloudy H (Clear) Urine pH 5.0 (5.0-8.0) Ur Specific [place] 1.010 (1.001-1.035) Urine Protein Negative (Negative) Urine Glucose (UA) Negative (Negative) Urine Ketones Negative (Negative) Urine Blood Negative (Negative) Urine Nitrite Positive H (Negative) Urine Bilirubin Negative (Negative) Urine Urobilinogen <2.0 (<2.0) mg/dL Ur Leukocyte Esterase Moderate H (Negative) Urine RBC <1 (0-5) /hpf Urine WBC 15 H (0-5) /hpf Ur Squamous Epith Cells 1 (0-4) /hpf Urine Bacteria Many H (None) /hpf Hyaline Casts 4 H (0-2) /lpf Urine Mucus Rare H (None) /hpf - Radiology Data Radiology results: report reviewed (Computed tomography scan of the brain shows persistent widespread vasogenic edema on the right, essentially unchanged from previous. Previous study was march [id number].), image reviewed (Chest x-ray shows cardiomegaly. Mild interstitial changes. By basilar airspace disease/effusion.) Disposition Clinical Impression: Nausea, UTI (urinary tract infection) Disposition: HOME SELF-CARE Condition: Stable Instructions (If sedation given, give patient instructions): Acute Nausea and Vomiting (ED), Urinary Tract Infection in Women (ED) Additional Instructions: Please follow-up in the next day or 2 with primary care physician. Please also follow-up with your neurologist within the next week. Return for weakness, confusion, fevers, worsening or changing symptoms or other concerns Prescriptions: Sulfamethox-Tmp 800-160Mg [Bactrim DS 800-160 mg] 1 each PO Q12HR #20 tab Ondansetron Odt [Zofran Odt] 4 mg PO Q8HR PRN #10 tab PRN Reason: Nausea Is patient prescribed a controlled substance at d/c from ED?: No Referrals: Kimberley Sharif MD [Primary Care Provider] - 1-2 days Time of Disposition: 15:13
[2019-07-04 11:54] LABS: Basophils # (A) 0.1 k/uL (0-0.2); Basophils % (A) 1 %; Eosinophils # (A) 0.3 k/uL (0-0.7); Eosinophils % (A) 3 %; HCT 32.4 % (34.0-46.0); HGB 10.6 gm/dL (11.4-16.0); Lymphocytes # (A) 1.2 k/uL (1.0-4.8); Lymphocytes % (A) 12 %; MCH 30.4 pg (25.0-35.0); MCHC 32.8 g/dL (31.0-37.0); MCV 92.8 fL (80.0-100.0); Monocytes # (A) 0.6 k/uL (0-1.0); Monocytes % (A) 5 %; Neutrophils # (A) 8.3 k/uL (1.3-7.7); Neutrophils % (A) 78 %; Platelet Count 323 k/uL (150-450); RBC 3.49 m/uL (3.80-5.40); RDW 15.4 % (11.5-15.5); WBC 10.6 k/uL (3.8-10.6)
[2019-07-04 11:55] LABS: Albumin 3.5 g/dL (3.5-5.0); Calcium 8.2 mg/dL (8.4-10.2); Potassium 3.7 mmol/L (3.5-5.1); Total Bilirubin 0.6 mg/dL (0.2-1.3); Total Protein 6.4 g/dL (6.3-8.2)
[2019-07-04 12:31] LABS: INR 0.9 (<1.2); Partial Thromboplastin Time 22.9 sec (22.0-30.0); Prothrombin Time 9.7 sec (9.0-12.0)
[2019-07-04 12:43] LABS: Appearance,Urine Cloudy (Clear); Bacteria,Urine Many /hpf; Bilirubin,Urine Negative (Negative); Blood,Urine Negative (Negative); Color,Urine Yellow; Glucose,Urine (UA) Negative (Negative); Hyaline Casts,Urine 4 /lpf (0-2); Ketones,Urine Negative (Negative); Leukocyte Esterase,Urine Moderate (Negative); Mucus,Urine Rare /hpf; Nitrite,Urine Positive (Negative); Protein,Urine Negative (Negative); RBC,Urine <1 /hpf (0-5); Squamous Epithelial Cell,Urine 1 /hpf (0-4); Urobilinogen,Urine <2.0 mg/dL (<2.0); WBC,Urine 15 /hpf (0-5)
--- NOTE | 2019-07-04 12:45 | XR ---
EXAMINATION TYPE: XR chest 2V DATE OF EXAM: 07/04/2019 HISTORY: Weakness. REFERENCE: Previous study dated 03/28/2019. FINDINGS: A bipolar pacemaker projects over the left side of the chest. The heart is enlarged. There is vascular congestion and mild edema. There is worsening atelectasis in the left midlung. There is bibasilar airspace disease. I suspect small effusions. IMPRESSION: 1. CARDIOMEGALY. 2. MILD CHANGES OF HEART FAILURE. 3. BIBASILAR AIRSPACE DISEASE. 4. SMALL, BILATERAL EFFUSIONS.
--- NOTE | 2019-07-04 14:15 | CT ---
EXAMINATION TYPE: CT brain wo con DATE OF EXAM: 07/04/2019 COMPARISON: Previous study dated 03/28/2019. HISTORY: AMS CT DLP: 1213.4 mGycm Automated exposure control for dose reduction was used. FINDINGS: There is persistent vasogenic edema involving the right parietal occipital lobe essentially unchanged from previous. There is effacement of the occipital horn of the right lateral ventricle. There is mi ld associated mass effect. There is no significant midline shift. I do not see evidence of intracrani al blood. Visualized portions of the paranasal sinuses and mastoids are clear. The bony calvarium is intact. IMPRESSION: PERSISTENT WIDESPREAD VASOGENIC EDEMA ON THE RIGHT, ESSENTIALLY UNCHANGED FROM PREVIOUS. A POSTCONTRA ST CT WOULD BE SUGGESTED TO RULE OUT UNDERLYING MASS.
[2019-07-04] MEDS ORDERED: cefTRIAXone IN SWFI 1,000 MG/10 ML SYRINGE IVP STA (14:57)
[2019-07-04 15:43] VITALS: BP 140/97; PULSE 105; RESP 20; TEMP 98
== END 2019-07-04 16:05 | disposition home or self-care (01) ==
LOC: EC 10:50
DX: N39.0 Urinary tract infection, site not specified (principal); R11.0 Nausea; J44.9 Chronic obstructive pulmonary disease, unspecified; I11.0 Hypertensive heart disease with heart failure; I50.9 Heart failure, unspecified; E11.9 Type 2 diabetes mellitus without complications; F41.9 Anxiety disorder, unspecified; F32.9 Major depressive disorder, single episode, unspecified; G40.909 Epilepsy, unspecified, not intractable, without status epilepticus; G47.30 Sleep apnea, unspecified; K21.9 Gastro-esophageal reflux disease without esophagitis; Z79.51 Long term (current) use of inhaled steroids; Z99.89 Dependence on other enabling machines and devices; Z79.899 Other long term (current) drug therapy; Z88.0 Allergy status to penicillin; Z87.891 Personal history of nicotine dependence
CPT/HCPCS: 36415; 93005; 80053; 82550; 83605; 83735; 84484; 85025; 85610; 85730; 81001; 87086; 71046; 70450; 99285; 96374; 96375 ×2; 96361 ×4; J2405; J0696; 87077; 87186

== ENCOUNTER 2019-11-10 11:42 | Inpatient (IN) | payer MEDICARE, OTHER ==
--- NOTE | 2019-11-10 12:26 | ED ---
General Adult HPI - General Chief complaint: Altered Mental Status Stated complaint: altered Time Seen by Provider: 11/10/19 11:50 Source: EMS, RN notes reviewed, old records reviewed Mode of arrival: EMS Limitations: altered mental status - History of Present Illness Initial comments: This is a 74-year-old female who resides at a long term. Patient was brought into the emergency department because at the long term the patient was altered and seeing things in saying things that were not true. Patient currently is alert and oriented 3 but she does state there are people out there at the long term trying to kill her and she believes the people to brought her to the emergency department might be trying to kill her as well. Patient has no complaints. There is no family or caregiver with her to elaborate on any of her problems. Patient denies any headache patient denies chest pain patient denies abdominal pain patient denies any problem breathing. Patient denies any fever chills - Related Data Home Medications Medication Instructions Recorded Confirmed Albuterol Nebulized [Ventolin 2.5 mg INHALATION RT-DAILY@89903/22/17 11/10/19 Nebulized] Montelukast [Singulair] 10 mg PO HS@209903/22/17 11/10/19 Albuterol Sulfate [Proair Hfa] 1 - 2 puff INHALATION RT-Q6H PRN 02/08/19 11/10/19 Fluticasone/Vilanterol [Breo 1 puff INHALATION RT-DAILY@209902/08/19 11/10/19 Ellipta 100-25 Mcg Inhaler] ALPRAZolam [Xanax] 0.25 mg PO BID@0900,209906/01/19 11/10/19 Denosumab [Prolia] 60 mg SQ Q6M 06/01/19 11/10/19 Esomeprazole Magnesium [NexIUM] 40 mg PO DAILY@0600 06/01/19 11/10/19 Ferrous Sulfate [Feosol] 325 mg PO BID@0900,209906/01/19 11/10/19 Furosemide [Lasix] 40 mg PO BID@0600,1400 06/01/19 11/10/19 Metoprolol Succinate (ER) [Toprol 50 mg PO DAILY@0900 06/01/19 11/10/19 XL] Nateglinide [Starlix] 120 mg PO TID@0800,1200,1800 06/01/19 11/10/19 Potassium Chloride ER [K-Dur 10] 10 meq PO BID@0900,1600 06/01/19 11/10/19 buPROPion [Wellbutrin] 100 mg PO BID@0900,2100 06/01/19 11/10/19 levETIRAcetam [Keppra] 500 mg PO Q8HR@0600,1400,2200 06/01/19 11/10/19 Loratadine [Claritin] 10 mg PO HS@209907/04/19 11/10/19 Acetaminophen Tab [Tylenol Tab] 650 mg PO DAILY PRN 11/10/19 11/10/19 Atorvastatin [Lipitor] 40 mg PO HS@209911/10/19 11/10/19 Calcium Carbonate [Tums] 1,000 mg PO Q6H PRN 11/10/19 11/10/19 Cholecalciferol [Vitamin D3 (25 2,000 unit PO DAILY@0900 11/10/19 11/10/19 Mcg = 1000 Iu)] DULoxetine HCL [Cymbalta] 30 mg PO BID@0900,209911/10/19 11/10/19 Dexamethasone 8 mg PO DAILY@0900 11/10/19 11/10/19 Folic Acid 0.4 mg PO DAILY@0900 11/10/19 11/10/19 Sravanthi-Lanta Susp 30 ml PO Q4H PRN 11/10/19 11/10/19 Guaifenesin/Dextromethorphan 10 ml PO Q4H PRN 11/10/19 11/10/19 [guaiFENesin DM] Melatonin 6 mg PO HS@209911/10/19 11/10/19 Menthol [Biofreeze] 1 applic TOPICAL Q6H PRN 11/10/19 11/10/19 Mylanta Susp 30 ml PO Q4H PRN 11/10/19 11/10/19 Sennosides/Docusate Sodium [Ariadna 2 tab PO HS@209911/10/19 11/10/19 Colace] Previous Rx's Medication Instructions Recorded Ondansetron Odt [Zofran Odt] 4 mg PO Q8HR PRN #10 tab 07/04/19 Allergies Allergy/AdvReac Type Severity Reaction Status Date / Time Penicillins Allergy Rash/Hives Verified 11/10/19 12:07 Review of Systems ROS Statement: Those systems with pertinent positive or pertinent negative responses have been documented in the HPI. ROS Other: All systems not noted in ROS Statement are negative. 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 History of Any Multi-Drug Resistant Organisms: ESBL Date of last positivie culture/infection: 10/15/19 ESBL E.coli MDRO Source:: Urine Past Surgical History: Cholecystectomy, Tonsillectomy Additional Past Surgical History / Comment(s): 11/18 TVP placement with no permanent pacer Past Anesthesia/Blood Transfusion Reactions: No Reported Reaction Past Psychological History: Anxiety, Depression Smoking Status: Former smoker Past Alcohol Use History: None Reported Past Drug Use History: None Reported - Past Family History Mother Family Medical History: Asthma Additional Family Medical History / Comment(s): depression Father Additional Family Medical History / Comment(s): ETOH General Exam - General Exam Comments Initial Comments: GENERAL: Patient is well-developed and well-nourished. Patient is nontoxic and well- hydrated and is in no acute distress. ENT: Neck is soft and supple. No significant lymphadenopathy is noted. Oropharynx is clear. Moist mucous membranes. Neck has full range of motion without eliciting any pain. EYES: The sclera were anicteric and conjunctiva were pink and moist. Extraocular movements were intact and pupils were equal round and reactive to light. Eyelids were unremarkable. PULMONARY: Unlabored respirations. Good breath sounds bilaterally. No audible rales rhonchi or wheezing was noted. CARDIOVASCULAR: There is a regular rate and rhythm without any murmurs gallops or rubs. ABDOMEN: Soft and nontender with normal bowel sounds. No palpable organomegaly was noted. There is no palpable pulsatile mass. SKIN: Skin is clear with no lesions or rashes and otherwise unremarkable. NEUROLOGIC: Patient is alert and oriented x3. However the patient does think people are trying to kill her. Cranial nerves II through XII are grossly intact. Motor and sensory are also intact. Normal speech, volume and content. Symmetrical smile. MUSCULOSKELETAL: Normal extremities with adequate strength and full range of motion. 2+ edema bilaterally LYMPHATICS: No significant lymphadenopathy is noted PSYCHIATRIC: Patient was saying something at the long term about there being animal somewhere in the long term and she was indicating the people are trying to harm her. Limitations: altered mental status Course Vital Signs 11/10/19 11/10/19 11:47 16:32 Temperature 98.4 F Pulse Rate 91 81 Respiratory 20 19 Rate Blood Pressure 117/65 125/69 O2 Sat by Pulse 95 92 L Oximetry Medical Decision Making - Medical Decision Making EKG shows a paced rhythm at 83 bpm TX interval is 368 QRSs 164 QT interval 440 QTC is 517. Patient's EKG shows no ST segment elevation or depression X-ray shows bilateral infiltrates consistent with pneumonia. I started patient on Rocephin I also put the patient on Zithromax. Patient also has urinary tract infection. I spoke with Dr. Norton he agreed to admit the patient admitted the patient wrote admitting orders. CT of the brain showed increased edema with some slight midline shift as well as there is subfalcine herniation I spoke with the daughter Heidi and she stated that the patient was a no code and she did not want any neurosurgical intervention. She understood that the increased edema in herniation might cause of of her mother but she states the quality of her life is terrible at this point in time. We talked about 15 minutes and she was confident that she wanted no intervention. I spoke with Dr. Carter and she was in agreement with keeping the patient in the hospital at [facility] - Lab Data Result diagrams: 11/10/19 13:26 11/10/19 13:26 Lab Results 11/10/19 11/10/19 11/10/19 Range/Units 13:04 13:25 13:26 WBC 14.3 H (3.8-10.6) k/uL RBC 3.39 L (3.80-5.40) m/uL Hgb 10.6 L (11.4-16.0) gm/dL Hct 31.7 L (34.0-46.0) % MCV 93.6 (80.0-100.0) fL MCH 31.2 (25.0-35.0) pg MCHC 33.3 (31.0-37.0) g/dL RDW 13.6 (11.5-15.5) % Plt Count 270 (150-450) k/uL Neutrophils % 89 % Lymphocytes % 4 % Monocytes % 5 % Eosinophils % 1 % Basophils % 0 % Neutrophils # 12.8 H (1.3-7.7) k/uL Lymphocytes # 0.6 L (1.0-4.8) k/uL Monocytes # 0.6 (0-1.0) k/uL Eosinophils # 0.1 (0-0.7) k/uL Basophils # 0.0 (0-0.2) k/uL PT (9.0-12.0) sec INR (<1.2) APTT (22.0-30.0) sec Sodium (137-145) mmol/L Potassium (3.5-5.1) mmol/L Chloride (98-107) mmol/L Carbon Dioxide (22-30) mmol/L Anion Gap mmol/L BUN (7-17) mg/dL Creatinine (0.52-1.04) mg/dL Est GFR (CKD-EPI)AfAm (>60 ml/min/1.73 sqM) Est GFR (CKD-EPI)NonAf (>60 ml/min/1.73 sqM) Glucose (74-99) mg/dL Plasma Lactic Acid Margarito 3.8 H* (0.7-2.0) mmol/L Calcium (8.4-10.2) mg/dL Total Bilirubin (0.2-1.3) mg/dL AST (14-36) U/L ALT (9-52) U/L Alkaline Phosphatase (38-126) U/L Troponin I (0.000-0.034) ng/mL NT-Pro-B Natriuret Pep pg/mL Total Protein (6.3-8.2) g/dL Albumin (3.5-5.0) g/dL Urine Color Light Yellow Urine Appearance Cloudy H (Clear) Urine pH 6.0 (5.0-8.0) Ur Specific [place] 1.010 (1.001-1.035) Urine Protein Trace H (Negative) Urine Glucose (UA) Negative (Negative) Urine Ketones Negative (Negative) Urine Blood Trace H (Negative) Urine Nitrite Negative (Negative) Urine Bilirubin Negative (Negative) Urine Urobilinogen <2.0 (<2.0) mg/dL Ur Leukocyte Esterase Large H (Negative) Urine RBC 2 (0-5) /hpf Urine WBC >182 H (0-5) /hpf Urine WBC Clumps Many H (None) /hpf Ur Squamous Epith Cells <1 (0-4) /hpf Urine Bacteria Few H (None) /hpf Urine Mucus Rare H (None) /hpf Urine Opiates Screen Not Detected (NotDetected) Ur Oxycodone Screen Not Detected (NotDetected) Urine Methadone Screen Not Detected (NotDetected) Ur Propoxyphene Screen Not Detected (NotDetected) Ur Barbiturates Screen Not Detected (NotDetected) U Tricyclic Antidepress Not Detected (NotDetected) Ur Phencyclidine Scrn Not Detected (NotDetected) Ur Amphetamines Screen Not Detected (NotDetected) U Methamphetamines Scrn Not Detected (NotDetected) U Benzodiazepines Scrn Detected H (NotDetected) Urine Cocaine Screen Not Detected (NotDetected) U Marijuana (THC) Screen Not Detected (NotDetected) 11/10/19 11/10/19 11/10/19 Range/Units 13:26 13:26 13:26 WBC (3.8-10.6) k/uL RBC (3.80-5.40) m/uL Hgb (11.4-16.0) gm/dL Hct (34.0-46.0) % MCV (80.0-100.0) fL MCH (25.0-35.0) pg MCHC (31.0-37.0) g/dL RDW (11.5-15.5) % Plt Count (150-450) k/uL Neutrophils % % Lymphocytes % % Monocytes % % Eosinophils % % Basophils % % Neutrophils # (1.3-7.7) k/uL Lymphocytes # (1.0-4.8) k/uL Monocytes # (0-1.0) k/uL Eosinophils # (0-0.7) k/uL Basophils # (0-0.2) k/uL PT 9.3 (9.0-12.0) sec INR 0.8 (<1.2) APTT 21.6 L (22.0-30.0) sec Sodium 136 L (137-145) mmol/L Potassium 4.8 (3.5-5.1) mmol/L Chloride 92 L (98-107) mmol/L Carbon Dioxide 35 H (22-30) mmol/L Anion Gap 9 mmol/L BUN 25 H (7-17) mg/dL Creatinine 1.28 H (0.52-1.04) mg/dL Est GFR (CKD-EPI)AfAm 48 (>60 ml/min/1.73 sqM) Est GFR (CKD-EPI)NonAf 42 (>60 ml/min/1.73 sqM) Glucose 116 H (74-99) mg/dL Plasma Lactic Acid Margarito (0.7-2.0) mmol/L Calcium 8.9 (8.4-10.2) mg/dL Total Bilirubin 0.5 (0.2-1.3) mg/dL AST 21 (14-36) U/L ALT 29 (9-52) U/L Alkaline Phosphatase 77 (38-126) U/L Troponin I 0.018 (0.000-0.034) ng/mL NT-Pro-B Natriuret Pep pg/mL Total Protein 6.7 (6.3-8.2) g/dL Albumin 3.8 (3.5-5.0) g/dL Urine Color Urine Appearance (Clear) Urine pH (5.0-8.0) Ur Specific [place] (1.001-1.035) Urine Protein (Negative) Urine Glucose (UA) (Negative) Urine Ketones (Negative) Urine Blood (Negative) Urine Nitrite (Negative) Urine Bilirubin (Negative) Urine Urobilinogen (<2.0) mg/dL Ur Leukocyte Esterase (Negative) Urine RBC (0-5) /hpf Urine WBC (0-5) /hpf Urine WBC Clumps (None) /hpf Ur Squamous Epith Cells (0-4) /hpf Urine Bacteria (None) /hpf Urine Mucus (None) /hpf Urine Opiates Screen (NotDetected) Ur Oxycodone Screen (NotDetected) Urine Methadone Screen (NotDetected) Ur Propoxyphene Screen (NotDetected) Ur Barbiturates Screen (NotDetected) U Tricyclic Antidepress (NotDetected) Ur Phencyclidine Scrn (NotDetected) Ur Amphetamines Screen (NotDetected) U Methamphetamines Scrn (NotDetected) U Benzodiazepines Scrn (NotDetected) Urine Cocaine Screen (NotDetected) U Marijuana (THC) Screen (NotDetected) 11/10/19 Range/Units 13:26 WBC (3.8-10.6) k/uL RBC (3.80-5.40) m/uL Hgb (11.4-16.0) gm/dL Hct (34.0-46.0) % MCV (80.0-100.0) fL MCH (25.0-35.0) pg MCHC (31.0-37.0) g/dL RDW (11.5-15.5) % Plt Count (150-450) k/uL Neutrophils % % Lymphocytes % % Monocytes % % Eosinophils % % Basophils % % Neutrophils # (1.3-7.7) k/uL Lymphocytes # (1.0-4.8) k/uL Monocytes # (0-1.0) k/uL Eosinophils # (0-0.7) k/uL Basophils # (0-0.2) k/uL PT (9.0-12.0) sec INR (<1.2) APTT (22.0-30.0) sec Sodium (137-145) mmol/L Potassium (3.5-5.1) mmol/L Chloride (98-107) mmol/L Carbon Dioxide (22-30) mmol/L Anion Gap mmol/L BUN (7-17) mg/dL Creatinine (0.52-1.04) mg/dL Est GFR (CKD-EPI)AfAm (>60 ml/min/1.73 sqM) Est GFR (CKD-EPI)NonAf (>60 ml/min/1.73 sqM) Glucose (74-99) mg/dL Plasma Lactic Acid Margarito (0.7-2.0) mmol/L Calcium (8.4-10.2) mg/dL Total Bilirubin (0.2-1.3) mg/dL AST (14-36) U/L ALT (9-52) U/L Alkaline Phosphatase (38-126) U/L Troponin I (0.000-0.034) ng/mL NT-Pro-B Natriuret Pep 481 pg/mL Total Protein (6.3-8.2) g/dL Albumin (3.5-5.0) g/dL Urine Color Urine Appearance (Clear) Urine pH (5.0-8.0) Ur Specific [place] (1.001-1.035) Urine Protein (Negative) Urine Glucose (UA) (Negative) Urine Ketones (Negative) Urine Blood (Negative) Urine Nitrite (Negative) Urine Bilirubin (Negative) Urine Urobilinogen (<2.0) mg/dL Ur Leukocyte Esterase (Negative) Urine RBC (0-5) /hpf Urine WBC (0-5) /hpf Urine WBC Clumps (None) /hpf Ur Squamous Epith Cells (0-4) /hpf Urine Bacteria (None) /hpf Urine Mucus (None) /hpf Urine Opiates Screen (NotDetected) Ur Oxycodone Screen (NotDetected) Urine Methadone Screen (NotDetected) Ur Propoxyphene Screen (NotDetected) Ur Barbiturates Screen (NotDetected) U Tricyclic Antidepress (NotDetected) Ur Phencyclidine Scrn (NotDetected) Ur Amphetamines Screen (NotDetected) U Methamphetamines Scrn (NotDetected) U Benzodiazepines Scrn (NotDetected) Urine Cocaine Screen (NotDetected) U Marijuana (THC) Screen (NotDetected) Disposition Clinical Impression: Altered mental status, Urinary tract infection, Pneumonia, Intracranial edema Disposition: ADMITTED IP TO THIS [facility] Time of Disposition: 15:10
--- NOTE | 2019-11-10 13:03 | XR ---
EXAMINATION TYPE: XR chest 2V DATE OF EXAM: 11/10/2019 COMPARISON: 07/04/2019 TECHNIQUE: PA and lateral views submitted. HISTORY: Shortness of breath FINDINGS: Heart is enlarged there is a coarsened interstitium with bilateral consolidation and cardiac device. Pleural thickening or tiny effusions noted. Biapical pleural thickening noted. Hypertrophic and degen erative change of the vertebral column. IMPRESSION: 1. Cardiomegaly with bilateral infiltrates correlate for pneumonia. Underlying neoplasm of the left l alison base not excluded. 2. Coarsened interstitium can be associated with chronic interstitial lung disease or venous congesti on correlate clinically.
[2019-11-10 13:44] LABS: Basophils % (A) 0 %; Eosinophils # (A) 0.1 k/uL (0-0.7); Eosinophils % (A) 1 %; HCT 31.7 % (34.0-46.0); HGB 10.6 gm/dL (11.4-16.0); Lymphocytes # (A) 0.6 k/uL (1.0-4.8); Lymphocytes % (A) 4 %; MCH 31.2 pg (25.0-35.0); MCHC 33.3 g/dL (31.0-37.0); MCV 93.6 fL (80.0-100.0); Mean Platelet Volume 7.4; Monocytes # (A) 0.6 k/uL (0-1.0); Monocytes % (A) 5 %; Neutrophils # (A) 12.8 k/uL (1.3-7.7); Neutrophils % (A) 89 %; Platelet Count 270 k/uL (150-450); RBC 3.39 m/uL (3.80-5.40); RDW 13.6 % (11.5-15.5); WBC 14.3 k/uL (3.8-10.6)
[2019-11-10 13:49] LABS: Appearance,Urine Cloudy (Clear); Bacteria,Urine Few /hpf; Bilirubin,Urine Negative (Negative); Blood,Urine Trace (Negative); Color,Urine Light Yellow; Glucose,Urine (UA) Negative (Negative); Ketones,Urine Negative (Negative); Leukocyte Esterase,Urine Large (Negative); Mucus,Urine Rare /hpf; Nitrite,Urine Negative (Negative); Protein,Urine Trace (Negative); RBC,Urine 2 /hpf (0-5); Squamous Epithelial Cell,Urine <1 /hpf (0-4); Urobilinogen,Urine <2.0 mg/dL (<2.0); WBC,Urine >182 /hpf (0-5)
[2019-11-10 13:55] LABS: Albumin 3.8 g/dL (3.5-5.0); Calcium 8.9 mg/dL (8.4-10.2); Potassium 4.8 mmol/L (3.5-5.1); Total Bilirubin 0.5 mg/dL (0.2-1.3); Total Protein 6.7 g/dL (6.3-8.2)
[2019-11-10 14:04] LABS: INR 0.8 (<1.2); Prothrombin Time 9.3 sec (9.0-12.0)
[2019-11-10 14:11] LABS: Amphetamine Screen,Urine Not Detected (NotDetected); Barbiturate Screen,Urine Not Detected (NotDetected); Benzodiazepines Screen,Urine Detected (NotDetected); Cocaine Screen,Urine Not Detected (NotDetected); Methadone Screen, Urine Not Detected (NotDetected); Opiate Screen,Urine Not Detected (NotDetected); Oxycodone Screen, Urine Not Detected (NotDetected); Phencyclidine Screen,Urine Not Detected (NotDetected); Tricyclic Antidepressant,Urine Not Detected (NotDetected); Urn Cannabinoid Scrn Not Detected (NotDetected)
[2019-11-10 14:16] LABS: Partial Thromboplastin Time 21.6 sec (22.0-30.0)
[2019-11-10] MEDS ORDERED: cefTRIAXone IN SWFI 1,000 MG/10 ML SYRINGE IVP STA (14:51)
[2019-11-10] MEDS ORDERED: PNEUMONIA PROTOCOL UTILIZED 1 EACH MISC PO PRN (15:11)
[2019-11-10] MEDS ORDERED: AZITHROMYCIN 500 MG in SODIUM CHLORIDE 0.9% 250 ML IVPB STA (15:11)
--- NOTE | 2019-11-10 15:56 | CT ---
EXAMINATION TYPE: CT brain wo con DATE OF EXAM: 11/10/2019 COMPARISON: Prior CT brain 07/04/2019 HISTORY: mental status changes and hallucinations. History of brain tumor CT DLP: 1290.4 mGycm Automated exposure control for dose reduction was used. Helical acquisition through the brain. FINDINGS: There is been progression in the vasogenic edema involving the right cerebral hemisphere. Some minima l subfalcine herniation, mild midline shift from right to left is suspected. There is no hemorrhage o r hydrocephalus. There is mass effect on the right lateral ventricle similar to prior exam at its pos terior aspect. There are cerebral vascular calcifications present. There is a partially empty sella. IMPRESSION: THERE IS PROGRESSION IN EDEMA WITH SOME SLIGHT MIDLINE SHIFT, SUBFALCINE HERNIATION SUSPECTED. Report relayed to Dr. Silva telephonically at the time of interpretation at exam.
[2019-11-10] MEDS ORDERED: DEXAMETHASONE SOD PHOSPHATE 10 MG/ML 1 ML VIAL IV STA (16:04)
[2019-11-10] MEDS ORDERED: METHYL SALICYLATE/MENTHOL CREAM 5 OZ TOPICAL PRN (20:15)
[2019-11-10] MEDS ORDERED: guaiFENesin-DM 100-10MG/5ML 10 ML CUP PO PRN (20:15)
[2019-11-10] MEDS ORDERED: ONDANSETRON ODT 4 MG TAB PO PRN (20:15)
[2019-11-10] MEDS ORDERED: GERI LANTA PO PRN (20:15)
[2019-11-10] MEDS ORDERED: MAG HYDROX/AL HYDROX/SIMETH 30 ML CUP PO PRN (20:15)
[2019-11-10] MEDS: SYMBICORT 80-4.5 MCG INHALER INHALATION SCH (20:52)
[2019-11-10] MEDS: DULoxetine HCL 30 MG CAPSULE.DR PO SCH (22:04)
[2019-11-10] MEDS: ATORVASTATIN 40 MG TAB PO SCH (22:04)
[2019-11-10] MEDS: buPROPion 100 MG TAB PO SCH (22:04)
[2019-11-10] MEDS: ALPRAZolam 0.25 MG TAB PO SCH (22:04)
[2019-11-10] MEDS: MONTELUKAST 10 MG TAB PO SCH (22:05)
[2019-11-10] MEDS: FERROUS SULFATE 325 MG TAB PO SCH (22:05)
[2019-11-10] MEDS: SENNOSIDES-DOCUSATE SODIUM 1 EACH TAB PO SCH (22:05)
[2019-11-10] MEDS: levETIRAcetam 500 MG TAB PO SCH (22:05)
[2019-11-10] MEDS: MELATONIN 3 MG TABLET PO SCH (22:06)
[2019-11-10] MEDS: LORATADINE 10 MG TAB PO SCH (22:06)
[2019-11-10] MEDS: ACETAMINOPHEN TAB 325 MG TAB PO PRN (22:12)
[2019-11-10] MEDS: DEXAMETHASONE SOD PHOSPHATE 4 MG/ML 1 ML VIAL IV SCH (23:54)
[2019-11-11] MEDS: ALBUTEROL NEBULIZED 2.5 MG/3 ML INHALATION SCH ×6 (00:54→19:42)
[2019-11-11] MEDS: DEXAMETHASONE SOD PHOSPHATE 4 MG/ML 1 ML VIAL IV SCH ×3 (06:11→17:21)
[2019-11-11] MEDS: PANTOPRAZOLE 40 MG TABLET PO SCH (06:12)
[2019-11-11] MEDS: FUROSEMIDE 40 MG TAB PO SCH ×2 (06:12→14:34)
[2019-11-11] MEDS: levETIRAcetam 500 MG TAB PO SCH ×3 (06:13→21:18)
[2019-11-11] MEDS: SYMBICORT 80-4.5 MCG INHALER INHALATION SCH ×2 (08:23→19:45)
[2019-11-11] MEDS: FOLIC ACID 1 MG TAB PO SCH (08:38)
[2019-11-11] MEDS: CALCIUM CARBONATE 500 MG CHEWABLE PO PRN ×2 (08:38→17:25)
[2019-11-11] MEDS: POTASSIUM CHLORIDE ER 10 MEQ TAB.ER.PRT PO SCH ×2 (08:38→15:32)
[2019-11-11] MEDS: ALPRAZolam 0.25 MG TAB PO SCH ×2 (08:38→21:17)
[2019-11-11] MEDS: CHOLECALCIFEROL 1,000 UNIT TAB PO SCH (08:38)
[2019-11-11] MEDS: FERROUS SULFATE 325 MG TAB PO SCH ×2 (08:38→21:17)
[2019-11-11] MEDS: NATEGLINIDE 120 MG PO SCH ×3 (08:39→17:19)
[2019-11-11] MEDS: buPROPion 100 MG TAB PO SCH ×2 (08:39→21:17)
[2019-11-11] MEDS: DULoxetine HCL 30 MG CAPSULE.DR PO SCH ×2 (08:39→22:00)
[2019-11-11] MEDS: METOPROLOL SUCCINATE (ER) 50 MG TAB.ER.24H PO SCH (08:40)
--- NOTE | 2019-11-11 09:06 | XR ---
EXAMINATION TYPE: XR chest 2V DATE OF EXAM: 11/11/2019 COMPARISON: 11/10/2019 HISTORY: Shortness of breath. Follow-up for pneumonia. TECHNIQUE: Frontal and lateral views of the chest are obtained. FINDINGS: Increasing left basilar opacity with new obscuration the left costophrenic angle. Healed l eft rib fractures lateral to this. Platelike atelectasis is worsened in the right midlung and develop ment of the tracer pleural effusion is now seen. Cardiomediastinal silhouette is again enlarged with dual lead left-sided cardiac device. IMPRESSION: Trace bilateral pleural effusions and worsening left basilar airspace disease as well as increased right midlung atelectasis.
[2019-11-11 12:10] LABS: Glucose,Whole Blood 185 mg/dL (75-99)
--- NOTE | 2019-11-11 12:19 | P.HPIM ---
History of Present Illness H&P Date: 11/11/19 Chief Complaint: Altered mental status. 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 Villaseñor at [facility] on the [place] was sent to the emergency department at [facility] yesterday because of mental status changes and the patient was seeing things and she was stating that people are trying to kill her over there she was brought by EMS to the emergency department his scan of the brain that showed significant brain edema with with subfalcine herniation, I had a long conversation with the emergency room physician about transferring the patient to a tertiary care center since we do not have any neurosurgery service at this point in time, However he stated the patient is DO NOT RESUSCITATE at this point in did not want any aggressive measures at this point in time, patient was admitted to the hospital with intention of conservative management only, he had also talked to her primary care physician Dr. Villaseñor who was in agreement for keeping the patient in the hospital. Repeated chest x-ray from today did show left lower lobe infiltrate with minimal pleural effusion. Pulmonary consultation was obtained. Review of Systems Constitutional: Reports fatigue, Reports weakness, Reports weight gain Eyes: denies blurred vision, denies bulging eye Ears: deny: decreased hearing Cardiovascular: Reports decreased exercise tolerance, Reports dyspnea on exertion, Reports edema, Reports leg edema, Reports palpitations, Reports shortness of breath, Denies chest pain, Denies lightheadedness, Denies orthopnea, Denies rapid heart beat Respiratory: Reports congestion, Reports cough, Reports cough with sputum, Reports home oxygen, Reports sleep apnea, Reports wheezing, Denies snoring Gastrointestinal: Denies abdominal pain, Denies bloating, Denies BRBPR, Denies heartburn, Denies loss of appetite, Denies melena, Denies nausea, Denies vomiting Genitourinary: Denies dysuria, Denies nocturia Menstruation: Reports postmenopausal Musculoskeletal: Reports gait dysfunction, Reports muscle weakness Musculoskeletal: bilateral: ankle swelling, elbow swelling, foot swelling, hand swelling, absent: ankle pain, ankle stiffness, elbow pain, elbow stiffness, foot pain, foot stiffness, hand pain, hand stiffness, hip pain, hip stiffness, hip swelling, knee pain, knee stiffness, knee swelling, shoulder pain, shoulder stiffness, shoulder swelling, wrist pain, wrist stiffness, wrist swelling Neurological: Reports balance difficulties, Reports change in mentation, Reports convulsions, Reports gait dysfunction, Reports weakness, Denies memory loss Psychiatric: Reports anxiety, Reports confusion, Reports disorientation, Reports hallucinations, Reports irritability, Reports paranoia, Denies depression, Denies sadness/tearfulness Endocrine: Denies fatigue, Denies weight change 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-CT scan of brain done 11/10/19 shows that it has enlarged History of Any Multi-Drug Resistant Organisms: ESBL Date of last positivie culture/infection: 10/15/19 ESBL E.coli MDRO Source:: Urine Past Surgical History: Cholecystectomy, Pacemaker, Tonsillectomy Additional Past Surgical History / Comment(s): permanent pacer Past Anesthesia/Blood Transfusion Reactions: No Reported Reaction Type of Cardiac Device: Permanent Pacemaker Device Placement Date:: 03/23/19 Past Psychological History: Anxiety, Depression Smoking Status: Former smoker Past Alcohol Use History: None Reported Past Drug Use History: None Reported - Past Family History Mother Family Medical History: Asthma Additional Family Medical History / Comment(s): depression Father Additional Family Medical History / Comment(s): ETOH Medications and Allergies Home Medications Medication Instructions Recorded Confirmed Type Albuterol Nebulized [Ventolin 2.5 mg INHALATION RT-DAILY@0900 03/22/17 11/10/19 History Nebulized] Montelukast [Singulair] 10 mg PO HS@209903/22/17 11/10/19 History Albuterol Sulfate [Proair Hfa] 1 - 2 puff INHALATION RT-Q6H PRN 02/08/19 11/10/19 History Fluticasone/Vilanterol [Breo 1 puff INHALATION RT-DAILY@209902/08/19 11/10/19 History Ellipta 100-25 Mcg Inhaler] ALPRAZolam [Xanax] 0.25 mg PO BID@0900,2100 06/01/19 11/10/19 History Denosumab [Prolia] 60 mg SQ Q6M 06/01/19 11/10/19 History Esomeprazole Magnesium [NexIUM] 40 mg PO DAILY@0600 06/01/19 11/10/19 History Ferrous Sulfate [Feosol] 325 mg PO BID@0900,2100 06/01/19 11/10/19 History Furosemide [Lasix] 40 mg PO BID@0600,1400 06/01/19 11/10/19 History Metoprolol Succinate (ER) [Toprol 50 mg PO DAILY@0900 06/01/19 11/10/19 History XL] Nateglinide [Starlix] 120 mg PO TID@0800,1200,1800 06/01/19 11/10/19 History Potassium Chloride ER [K-Dur 10] 10 meq PO BID@0900,1600 06/01/19 11/10/19 History buPROPion [Wellbutrin] 100 mg PO BID@0900,2100 06/01/19 11/10/19 History levETIRAcetam [Keppra] 500 mg PO Q8HR@0600,1400,2200 06/01/19 11/10/19 History Loratadine [Claritin] 10 mg PO HS@209907/04/19 11/10/19 History Ondansetron Odt [Zofran Odt] 4 mg PO Q8HR PRN #10 tab 07/04/19 11/10/19 Rx Acetaminophen Tab [Tylenol Tab] 650 mg PO DAILY PRN 11/10/19 11/10/19 History Atorvastatin [Lipitor] 40 mg PO HS@209911/10/19 11/10/19 History Calcium Carbonate [Tums] 1,000 mg PO Q6H PRN 11/10/19 11/10/19 History Cholecalciferol [Vitamin D3 (25 2,000 unit PO DAILY@0900 11/10/19 11/10/19 History Mcg = 1000 Iu)] DULoxetine HCL [Cymbalta] 30 mg PO BID@0900,2100 11/10/19 11/10/19 History Dexamethasone 8 mg PO DAILY@0900 11/10/19 11/10/19 History Folic Acid 0.4 mg PO DAILY@0900 11/10/19 11/10/19 History Sravanthi-Lanta Susp 30 ml PO Q4H PRN 11/10/19 11/10/19 History Guaifenesin/Dextromethorphan 10 ml PO Q4H PRN 11/10/19 11/10/19 History [guaiFENesin DM] Melatonin 6 mg PO HS@2100 11/10/19 11/10/19 History Menthol [Biofreeze] 1 applic TOPICAL Q6H PRN 11/10/19 11/10/19 History Mylanta Susp 30 ml PO Q4H PRN 11/10/19 11/10/19 History Sennosides/Docusate Sodium [Ariadna 2 tab PO HS@209911/10/19 11/10/19 History Colace] Allergies Allergy/AdvReac Type Severity Reaction Status Date / Time Penicillins Allergy Rash/Hives Verified 11/10/19 12:07 Physical Exam Vitals: Vital Signs Temp Pulse Pulse Resp BP BP Pulse Ox 11/11/19 11:45 68 11/11/19 11:35 66 11/11/19 05:30 97.1 F L 70 20 133/77 99 11/11/19 04:27 64 11/11/19 04:20 63 11/11/19 01:29 64 11/11/19 00:54 64 11/10/19 22:11 98.0 F 69 20 118/75 97 11/10/19 20:09 96 11/10/19 18:47 98.3 F 86 18 133/77 96 11/10/19 16:32 81 19 125/69 92 L Intake and Output 11/10/19 11/11/19 11/11/19 22:59 06:59 14:59 Intake Total 590 Balance 590 Intake: Oral 590 Other: Voiding Method Bedside Commode Bedside Commode # Voids 1 4 Weight 113.398 kg 117 kg - Constitutional General appearance: mild distress, obese - EENT Eyes: no abnormal pupil, EOMI, PERRLA, no ptosis, no scleral icterus, normal appearance Ears: bilateral: normal - Neck Neck: no lymphadenopathy, normal ROM, no rigidity, no stridor, no thyromegaly Carotids: bilateral: upstroke delayed Thyroid: bilateral: normal size - Respiratory Respiratory: bilateral: diminished, rhonchi, wheezing, prolonged expiration, negative: dullness, rales - Cardiovascular Rhythm: regular Heart sounds: normal: S1, S2 Abnormal Heart Sounds: systolic murmur, S3 Gallop - Gastrointestinal General gastrointestinal: normal bowel sounds, soft, no tenderness - Musculoskeletal Musculoskeletal: generalized weakness - Psychiatric Psychiatric: no A&O x's 3, no appropriate affect, no intact judgment & insight Results CBC & Chem 7: 11/10/19 13:26 11/10/19 13:26 Labs: Abnormal Lab Results - Last 24 Hours (Table) 11/10/19 11/10/19 11/10/19 Range/Units 13:04 13:25 13:26 WBC 14.3 H (3.8-10.6) k/uL RBC 3.39 L (3.80-5.40) m/uL Hgb 10.6 L (11.4-16.0) gm/dL Hct 31.7 L (34.0-46.0) % Neutrophils # 12.8 H (1.3-7.7) k/uL Lymphocytes # 0.6 L (1.0-4.8) k/uL APTT (22.0-30.0) sec Sodium (137-145) mmol/L Chloride (98-107) mmol/L Carbon Dioxide (22-30) mmol/L BUN (7-17) mg/dL Creatinine (0.52-1.04) mg/dL Glucose (74-99) mg/dL Plasma Lactic Acid Margarito 3.8 H* (0.7-2.0) mmol/L Urine Appearance Cloudy H (Clear) Urine Protein Trace H (Negative) Urine Blood Trace H (Negative) Ur Leukocyte Esterase Large H (Negative) Urine WBC >182 H (0-5) /hpf Urine WBC Clumps Many H (None) /hpf Urine Bacteria Few H (None) /hpf Urine Mucus Rare H (None) /hpf U Benzodiazepines Scrn Detected H (NotDetected) 11/10/19 11/10/19 Range/Units 13:26 13:26 WBC (3.8-10.6) k/uL RBC (3.80-5.40) m/uL Hgb (11.4-16.0) gm/dL Hct (34.0-46.0) % Neutrophils # (1.3-7.7) k/uL Lymphocytes # (1.0-4.8) k/uL APTT 21.6 L (22.0-30.0) sec Sodium 136 L (137-145) mmol/L Chloride 92 L (98-107) mmol/L Carbon Dioxide 35 H (22-30) mmol/L BUN 25 H (7-17) mg/dL Creatinine 1.28 H (0.52-1.04) mg/dL Glucose 116 H (74-99) mg/dL Plasma Lactic Acid Margariot (0.7-2.0) mmol/L Urine Appearance (Clear) Urine Protein (Negative) Urine Blood (Negative) Ur Leukocyte Esterase (Negative) Urine WBC (0-5) /hpf Urine WBC Clumps (None) /hpf Urine Bacteria (None) /hpf Urine Mucus (None) /hpf U Benzodiazepines Scrn (NotDetected) Microbiology - Last 24 Hours (Table) 11/10/19 13:04 Urine Culture - Preliminary Urine,Voided Thrombosis Risk Factor Assmnt - DVT/VTE Prophylaxis DVT/VTE Prophylaxis: Mechanical Prophylaxis ordered - Choose All That Apply Any of the Below Risk Factors Present?: Yes Each Factor Represents 1 point: Abnormal pulmonary function (COPD), Obesity (BMI >25) Other Risk Factors: Yes Each Risk Factor Represents 2 Points: Age 61-74 years Other congenital or acquired thrombophilia - If yes, enter type in comment: No Thrombosis Risk Factor Assessment Total Risk Factor Score: 4 Thrombosis Risk Factor Assessment Level: Moderate Risk Assessment and Plan Assessment: Assessment and plan: 1. Altered mental status likely related to significant brain edema with possible subfalcine herniation. Continue Decadron 6 mg IV push every 6 hours, neurology consultation at this time, patient is DO NOT RESUSCITATE, consider comfort care. 2. Acute on chronic toxemic and hypercapnic respiratory failure due to left lower lobe pneumonia and obstructive sleep apnea/COPD. DuoNeb 3 mg nebulization 4 times every day, oxygen support, Rocephin 1 g IV piggyback every 24 hours, Zithromax 500 mg IV piggyback every 24 hours, pulmonary consultation. 3. History of complete heart block status post permanent pacemaker placement 4. Hypertension and hypertensive cardiovascular disease. Continue patient on Toprol-XL 50 mg orally once every day. 5. Hyperlipidemia. Continue Lipitor 40 mg orally once every day. 6. Severe COPD. Continue patient on Symbicort 160/4.5 g 2 puffs inhalation twice every day, continue DuoNeb, continue oxygen support 7. Obesity with obstructive sleep apnea. Continue current CPAP. 8. Diabetes mellitus type 2. Continue with Starlix 120 mg orally 3 times every day. Continue with sliding scale insulin. 9. Seizure disorder. Continue Keppra 500 mg orally 3 times every day. 10. Brain tumor with brain edema and possible herniation. Continue treatment as in paragraph #1. 11. Anemia. Continue patient on I haven't. 12. GERD. Continue Protonix 40 mg orally once every day. 13. Depressive disorder. Continue patient on Cymbalta 30 mg orally once every day as well as Wellbutrin 100 mg orally twice every day. 14. DVT prophylaxis. Continue patient on heparin 5000 units subcutaneously every 12 hours, bilateral knee-high GEORGE hose. 15. GI prophylaxis. Continue Protonix 40 mg orally once every day 16. Patient is no code. 17. Over all prognosis is dismal consider comfort care.
--- NOTE | 2019-11-11 13:06 | P.CNNES ---
History of Present Illness Consult date: 11/11/19 Requesting physician: Mathieu Silva Reason for Consult: Altered mental status, intracranial edema. History of Present Illness: Patient is a 74-year-old female, who has a diagnosis of brain tumor, was brought to the hospital for altered mental status. Patient not able to provide any history. Patient apparently has been having hallucinations, seeing and hearing things that are not there, or have not happened. Patient denies headache. Patient states that she follows up with a neurologist Dr. Figueroa. Patient ap pears to be somewhat paranoid, stating "no one is going to take my lungs". "I do not want to give the lungs to anyone". Patient underwent computed tomography scan of the head, which revealed there is progression in edema with some slight midline shift, subfalcine herniation suspected. Chest x-ray showed trace bilateral pleural effusions and worsening left basilar airspace disease, as well as increased right midlung atelectasis. EKG showed atrial sense ventricle or paced rhythm with prolonged AV conduction. Patient's blood test shows WBC 14.3 hemoglobin 10.6 platelets are 270. PTT is 21.6. Sodium 136 potassium 4.8. BUN 25, creatinine 1.28. UA showed large amount of leukocyte Estrace, more than 182 WBCs, WBC clumps. Few bacteria. Urine culture so far negative. Patient had an EEG performed 03/20/2019, which reported as diffuse theta range slowing with triphasic waves as can be seen with metabolic encephalopathy. There is moderate diffuse cerebral dysfunction as can be seen with toxic metabolic encephalopathy. No epileptiform activity was seen. Patient currently is on Keppra 500 mg every 8 hours. She has also been started on Decadron 6 mg IV every 6 hours. Review of Systems Patient denies headache. Patient would not cooperate with review of systems. 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-CT scan of brain done 11/10/19 shows that it has enlarged History of Any Multi-Drug Resistant Organisms: ESBL Date of last positivie culture/infection: 10/15/19 ESBL E.coli MDRO Source:: Urine Past Surgical History: Cholecystectomy, Pacemaker, Tonsillectomy Additional Past Surgical History / Comment(s): permanent pacer Past Anesthesia/Blood Transfusion Reactions: No Reported Reaction Type of Cardiac Device: Permanent Pacemaker Device Placement Date:: 03/23/19 Past Psychological History: Anxiety, Depression Smoking Status: Former smoker Past Alcohol Use History: None Reported Past Drug Use History: None Reported - Past Family History Mother Family Medical History: Asthma Additional Family Medical History / Comment(s): depression Father Additional Family Medical History / Comment(s): ETOH Medications and Allergies Home Medications Medication Instructions Recorded Confirmed Type Albuterol Nebulized [Ventolin 2.5 mg INHALATION RT-DAILY@0900 03/22/17 11/10/19 History Nebulized] Montelukast [Singulair] 10 mg PO HS@209903/22/17 11/10/19 History Albuterol Sulfate [Proair Hfa] 1 - 2 puff INHALATION RT-Q6H PRN 02/08/19 11/10/19 History Fluticasone/Vilanterol [Breo 1 puff INHALATION RT-DAILY@209902/08/19 11/10/19 History Ellipta 100-25 Mcg Inhaler] ALPRAZolam [Xanax] 0.25 mg PO BID@0900,2100 06/01/19 11/10/19 History Denosumab [Prolia] 60 mg SQ Q6M 06/01/19 11/10/19 History Esomeprazole Magnesium [NexIUM] 40 mg PO DAILY@0600 06/01/19 11/10/19 History Ferrous Sulfate [Feosol] 325 mg PO BID@0900,209906/01/19 11/10/19 History Furosemide [Lasix] 40 mg PO BID@0600,1400 06/01/19 11/10/19 History Metoprolol Succinate (ER) [Toprol 50 mg PO DAILY@0900 06/01/19 11/10/19 History XL] Nateglinide [Starlix] 120 mg PO TID@0800,1200,1800 06/01/19 11/10/19 History Potassium Chloride ER [K-Dur 10] 10 meq PO BID@0900,1600 06/01/19 11/10/19 Hist ory buPROPion [Wellbutrin] 100 mg PO BID@0900,2100 06/01/19 11/10/19 History levETIRAcetam [Keppra] 500 mg PO Q8HR@0600,1400,2200 06/01/19 11/10/19 History Loratadine [Claritin] 10 mg PO HS@2100 07/04/19 11/10/19 History Ondansetron Odt [Zofran Odt] 4 mg PO Q8HR PRN #10 tab 07/04/19 11/10/19 Rx Acetaminophen Tab [Tylenol Tab] 650 mg PO DAILY PRN 11/10/19 11/10/19 History Atorvastatin [Lipitor] 40 mg PO HS@209911/10/19 11/10/19 History Calcium Carbonate [Tums] 1,000 mg PO Q6H PRN 11/10/19 11/10/19 History Cholecalciferol [Vitamin D3 (25 2,000 unit PO DAILY@0900 11/10/19 11/10/19 History Mcg = 1000 Iu)] DULoxetine HCL [Cymbalta] 30 mg PO BID@0900,2100 11/10/19 11/10/19 History Dexamethasone 8 mg PO DAILY@0900 11/10/19 11/10/19 History Folic Acid 0.4 mg PO DAILY@0900 11/10/19 11/10/19 History Sravanthi-Lanta Susp 30 ml PO Q4H PRN 11/10/19 11/10/19 History Guaifenesin/Dextromethorphan 10 ml PO Q4H PRN 11/10/19 11/10/19 History [guaiFENesin DM] Melatonin 6 mg PO HS@209911/10/19 11/10/19 History Menthol [Biofreeze] 1 applic TOPICAL Q6H PRN 11/10/19 11/10/19 History Mylanta Susp 30 ml PO Q4H PRN 11/10/19 11/10/19 History Sennosides/Docusate Sodium [Ariadna 2 tab PO HS@2100 11/10/19 11/10/19 History Colace] Allergies Allergy/AdvReac Type Severity Reaction Status Date / Time Penicillins Allergy Rash/Hives Verified 11/10/19 12:07 Physical Examination - Vital Signs Vital Signs: Vital Signs Temp Pulse Pulse Resp BP BP Pulse Ox 11/11/19 12:35 97.6 F 96 20 140/91 98 11/11/19 11:45 68 11/11/19 11:35 66 11/11/19 05:30 97.1 F L 70 20 133/77 99 11/11/19 04:27 64 11/11/19 04:20 63 11/11/19 01:29 64 11/11/19 00:54 64 11/10/19 22:11 98.0 F 69 20 118/75 97 11/10/19 20:09 96 11/10/19 18:47 98.3 F 86 18 133/77 96 11/10/19 16:32 81 19 125/69 92 L Intake and Output 11/10/19 11/11/19 11/11/19 22:59 06:59 14:59 Intake Total 590 Balance 590 Intake: Oral 590 Other: Voiding Method Bedside Commode Bedside Commode # Voids 1 4 Weight 113.398 kg 117 kg On examination patient is an elderly female, in mild respiratory distress, is using oxygen. Patient appears hyperalert, paranoid, delirious, slightly tremulous. Patient's speech and language functions are normal. Patient states that it is November 2019 and that she is in [place], but could not tell the building. When I asked patient about name of the president, states "he is going to get impeached today". Then she states, "we could not get Marvin because of Nohemi Oh ". Patient sometimes takes tangential. Patient was able to give me the correct telephone number of her daughter. Patient's pupils are round and reactive light, visual nolan appears full face is symmetric and tongue protrudes the midline. Muscle strength appears normal in the arms and legs. She has significant peripheral edema. No ataxia. She appears slightly tremulous. Tone and bulk of muscles normal. Gait deferred. Results - Laboratory Findings CBC and BMP: 11/10/19 13:26 11/10/19 13:26 Abnormal Lab Findings: Abnormal Labs 11/10/19 11/10/19 11/10/19 13:04 13:25 13:26 WBC 14.3 H RBC 3.39 L Hgb 10.6 L Hct 31.7 L Neutrophils # 12.8 H Lymphocytes # 0.6 L APTT Sodium Chloride Carbon Dioxide BUN Creatinine Glucose POC Glucose (mg/dL) Plasma Lactic Acid Margarito 3.8 H* Urine Appearance Cloudy H Urine Protein Trace H Urine Blood Trace H Ur Leukocyte Esterase Large H Urine WBC >182 H Urine WBC Clumps Many H Urine Bacteria Few H Urine Mucus Rare H U Benzodiazepines Scrn Detected H 11/10/19 11/10/19 11/11/19 13:26 13:26 12:09 WBC RBC Hgb Hct Neutrophils # Lymphocytes # APTT 21.6 L Sodium 136 L Chloride 92 L Carbon Dioxide 35 H BUN 25 H Creatinine 1.28 H Glucose 116 H POC Glucose (mg/dL) 185 H Plasma Lactic Acid Margarito Urine Appearance Urine Protein Urine Blood Ur Leukocyte Esterase Urine WBC Urine WBC Clumps Urine Bacteria Urine Mucus U Benzodiazepines Scrn Assessment and Plan Assessment: * Altered mental status, likely related to acute delirium. This could be related to an acute UTI, or medication effect. * Brain tumor, with progressive cerebral edema, mass effect and mild midline sh ift. * Morbid obesity * Peripheral edema. Plan: * I tried to contact patient's daughter Miss Gordon, she was not available. Left message on the voicemail. Tried multiple times during the day, but was not able to contact her. I did leave my call back cell phone number on her voicemail. * I reviewed computed tomography scan of the head on the computer, agree with findings with evidence of significant vasogenic edema involving the right hemispheric region. * Patient will be continued on Keppra 500 mg twice a day. * Agree with starting Decadron 6 mg IV every 6 hours. * Regarding UTI patient has received 1 dose of Rocephin and now patient is on azithromycin. * Based upon records from ED, patient's family does not want any aggressive treatment, or even neurosurgical evaluation. They are considering conservative treatment at this point.
[2019-11-11] MEDS: AZITHROMYCIN 500 MG TAB PO SCH (14:34)
[2019-11-11 16:50] LABS: Glucose,Whole Blood 235 mg/dL (75-99)
[2019-11-11] MEDS: ACETAMINOPHEN TAB 325 MG TAB PO PRN (17:25)
--- NOTE | 2019-11-11 17:25 | CONS ---
CONSULTATION PULMONARY/CRITICAL CARE CONSULTATION: DATE OF CONSULTATION: 11/11/2019 REASON FOR CONSULTATION: COPD. This patient is a 74-year-old female who resides at [facility] on the [facility]. She apparently was brought into the emergency department because of confusion and disorientation and acute mental status changes. The patient was sitting in the chair when we went into the room to see her. She accused us of wanting to remove her lungs and giving them to somebody else. She was quite confused. The patient did not recognize me, and I have been taking care of her for a number of years. She was talking gibberish. She was not really making any sense. She was talking about the fact that she was either residing in [place] or going to see somebody in [place]. Again, very very confused. The patient apparently had a brain CT done yesterday which showed vasogenic edema involving the right cerebral hemisphere. There was some minimal subfalcine herniation and mild midline shift from right to left. There was no hemorrhage or hydrocephalus. Anyway, apparently Neurology saw the patient and the patient's daughter was contacted. Her daughter did not want anything done in the way of aggressive management or transfer. Again from the COPD standpoint, the patient looks to be relatively stable. She is on a couple of liters of nasal oxygen. She does not have any conversational dyspnea or use of accessory muscles or audible wheezing. MEDICATIONS: Medications from the snf include albuterol updrafts, Singulair, albuterol inhaler, Breo, Xanax, Prolia, Nexium, iron tablets, Lasix, Toprol, Starlix, K-Dur, Wellbutrin, Keppra, Claritin, Tylenol, Lipitor, Tums, vitamin D3, Cymbalta, Decadron, folic acid, guaifenesin/dextromethorphan, melatonin, menthol, Mylanta and Colace. She is also apparently on Zofran as needed. ALLERGIES: PENICILLIN. MEDICAL HISTORY: Medical history includes COPD/asthma, chest pain/angina pectoris, heart failure, dementia, diabetes mellitus, GERD, deafness, hypertension, osteoarthritis, pneumonia, seizure disorder, sleep apnea syndrome, benign brain tumor, hydrocephalus, osteoporosis, and previous history of extended-spectrum pliz-ikisfaemj-cdhkowotr E coli infections in the urine. SURGICAL HISTORY: Surgical history includes cholecystectomy and tonsillectomy. Also in the past she has had a transvenous pacemaker. SOCIAL HISTORY: Positive for previous tobacco use. She denies any alcohol use or illicit drug use. FAMILY HISTORY: Positive for father with alcohol abuse and mother with asthma and depression. REVIEW OF SYSTEMS: Review of systems was totally unreliable. The patient really cannot give us any pertinent history. She is very very confused and disoriented. She apparently was brought to the emergency room primarily for the mental status changes. PHYSICAL EXAMINATION: VITAL SIGNS: Current vital signs are reviewed. Temperature 97.6, heart rate 68, respiratory rate 18, blood pressure 140/91, mean 107. Two-liter saturation 98%. GENERAL APPEARANCE: Appears in no acute distress. HEENT EXAMINATION: Grossly unremarkable. Mucous membranes are moist. Nasal oxygen noted. NECK: Supple. Full range of motion. No adenopathy or thyromegaly. Neck veins are flat. CARDIOVASCULAR: Cardiovascular examination reveals regular rhythm and rate. S1, S2 normal. No S3, S4 or murmur. LUNGS: Lungs reveal a few scattered rhonchi. No expiratory wheezes. Breath sounds equal bilaterally but diminished throughout. ABDOMEN: Obese. Bowel sounds are heard. EXTREMITIES: Extremities reveal some mild edema. No cyanosis or clubbing. SKIN: Skin reveals some chronic venostasis changes in the lower extremities. NEUROLOGIC: Neurologic examination is very difficult to assess. She does move all 4 extremities. She is very confused and disoriented. LABORATORY DATA: Reviewed. White count 14.3, hemoglobin 10.6, hematocrit 31.7, platelet count 370,000. PT/INR normal. PTT 21.6. Sodium 136, potassium 4.8, chloride 92. CO2 35. Anion gap is 9. BUN and creatinine were 25 and 1.28. The rest of the comprehensive metabolic profile looks pretty normal. Urine was light yellow and cloudy. There was trace protein, trace blood, large leukocyte esterase, two RBCs, greater than 182 WBCs, many WBC clumps, and a few bacteria. Drug screen is positive for benzodiazepines. IMAGING: Chest x-ray is consistent with cardiomegaly and bilateral infiltrates, possibly consistent with underlying pneumonia. There was some concern about neoplasm of the left lung base. Brain CT, as noted, shows evidence of vasogenic edema which is progressive in nature as well as slight midline shift, subfalcine herniation and mass effect on the right lateral ventricle. Medications are reviewed. ASSESSMENT: 1. Disorientation and confusion, likely related to the primary brain process, i.e., vasogenic edema with worsening herniation. 2. History of chronic obstructive pulmonary disease, reasonably stable, although pneumonia cannot be excluded. 3. Possible urinary tract infection. 4. History of angina pectoris. 5. Dementia. 6. Heart failure. 7. Diabetes mellitus. 8. Osteoporosis. 9. Gastroesophageal reflux disease. 10.Deafness. 11.Hypertension. 12.Degenerative joint disease. 13.History of pneumonia. 14.History of seizure disorder. 15.History of sleep apnea syndrome. 16.History of benign brain tumor/meningioma. 17.Prior history of extended-spectrum qzut-jiprnquky-wezmckpzy Escherichia coli urinary tract infection. PLAN: Please see my orders. Pulmonary medications will be reviewed. She should be on antibiotics for a possible urinary tract infection/pneumonia. Will continue to follow. Overall prognosis remains very poor. She is NO CODE. Appreciate input by Neurology. Apparently Neurology did contact the patient's family about possible transfer or surgical intervention, and she was not interested. Additional recommendations and suggestions are forthcoming. MMODL / IJN: [id number] /
[2019-11-11 20:04] LABS: Glucose,Whole Blood 228 mg/dL (75-99)
[2019-11-11] MEDS: ATORVASTATIN 40 MG TAB PO SCH (21:17)
[2019-11-11] MEDS: MELATONIN 3 MG TABLET PO SCH (21:17)
[2019-11-11] MEDS: LORATADINE 10 MG TAB PO SCH (21:17)
[2019-11-11] MEDS: SENNOSIDES-DOCUSATE SODIUM 1 EACH TAB PO SCH (21:18)
[2019-11-11] MEDS: MONTELUKAST 10 MG TAB PO SCH (21:18)
[2019-11-11 21:51] VITALS: TEMP 97.9
[2019-11-12] MEDS: DEXAMETHASONE SOD PHOSPHATE 4 MG/ML 1 ML VIAL IV SCH ×2 (00:07→06:01)
[2019-11-12] MEDS: ALBUTEROL NEBULIZED 2.5 MG/3 ML INHALATION SCH ×4 (00:15→12:25)
[2019-11-12 05:48] VITALS: BP 159/88; PULSE 70; RESP 20
[2019-11-12] MEDS: FUROSEMIDE 40 MG TAB PO SCH (06:01)
[2019-11-12] MEDS: PANTOPRAZOLE 40 MG TABLET PO SCH (06:02)
[2019-11-12] MEDS: levETIRAcetam 500 MG TAB PO SCH (06:03)
[2019-11-12 06:49] LABS: Glucose,Whole Blood 180 mg/dL (75-99)
[2019-11-12] MEDS: ALPRAZolam 0.25 MG TAB PO SCH (08:13)
[2019-11-12] MEDS: buPROPion 100 MG TAB PO SCH (08:13)
[2019-11-12] MEDS: AZITHROMYCIN 500 MG TAB PO SCH (08:13)
[2019-11-12] MEDS: NATEGLINIDE 120 MG PO SCH (08:13)
[2019-11-12] MEDS: FOLIC ACID 1 MG TAB PO SCH (08:14)
[2019-11-12] MEDS: FERROUS SULFATE 325 MG TAB PO SCH (08:14)
[2019-11-12] MEDS: CHOLECALCIFEROL 1,000 UNIT TAB PO SCH (08:14)
[2019-11-12] MEDS: DULoxetine HCL 30 MG CAPSULE.DR PO SCH (08:14)
[2019-11-12] MEDS: POTASSIUM CHLORIDE ER 10 MEQ TAB.ER.PRT PO SCH (08:15)
[2019-11-12] MEDS: METOPROLOL SUCCINATE (ER) 50 MG TAB.ER.24H PO SCH (08:15)
[2019-11-12] MEDS: ACETAMINOPHEN TAB 325 MG TAB PO PRN (08:25)
--- NOTE | 2019-11-12 09:09 | P.DS ---
Providers Date of admission: 11/10/19 15:11 Expected date of discharge: 11/12/19 Attending physician: Olga Norton Consults: 11/10/19 16:44 Consult Physician Stat Consulting Provider: Carolina Mackey Consult Reason/Comments: Intracranial edema, altered mental status Do you want consulting provider notified?: Yes 11/11/19 12:04 Consult Physician Routine Consulting Provider: Kj Sánchez Consult Reason/Comments: pneumonia/ chronic respiratory failure Do you want consulting provider notified?: Yes Primary care physician: Manisha Villaseñor [facility] Course: This is a 74-year-old female with a previous medical history significant for hypertension and 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 Villaseñor at [facility] [place] was sent to the emergency department at [facility] yesterday because of mental status changes and the patient was seeing things and she was stating that people are trying to kill her over there she was brought by EMS to the emergency department his scan of the brain that showed significant brain edema with with subfalcine herniation, I had a long conversation with the emergency room physician about transferring the patient to a tertiary care center since we do not have any neurosurgery service at this point in time, However he stated the patient is DO NOT RESUSCITATE at this point in did not want any aggressive measures at this point in time, patient was admitted to the hospital with intention of conservative management only, he had also talked to her primary care physician Dr. Villaseñor who was in agreement for keeping the patient in the hospital. Repeated chest x-ray from today did show left lower lobe infiltrate with minimal pleural effusion. Pulmonary consultation was obtained. 11/12: Patient has been seen by neurology regarding renal tumor with progressive cerebral edema, mass effect and midline shift. Recommendations to continue Keppra and starting Decadron. He also agreed with transfer to [facility] for possible gamma knife versus other options. Dr. Villaseñor had long discussion with the patient's daughter it was agreed the patient would be transferred today. Patient has been accepted at [facility] and will be transferred once all arrangements have been made. Patient has been on Rocephin for her tract infection as well as treated for pneumonia. She has been afebrile, heart rate 70, blood pressure 159/88, pulse ox 97% on 2 L nasal cannula. Discharge diagnoses: 1. Altered mental status likely related to significant brain edema with possible subfalcine herniation. 2. Acute on chronic toxemic and hypercapnic respiratory failure due to left lower lobe pneumonia, possible gram-negative pneumonia and obstructive sleep apnea/COPD. 3. History of complete heart block status post permanent pacemaker placement 4. Hypertension and hypertensive cardiovascular disease. 5. Hyperlipidemia. 6. Severe COPD. 7. Obesity with obstructive sleep apnea. 8. Diabetes mellitus type 2. 9. Seizure disorder. 10. Brain tumor with brain edema and possible herniation. 11. Anemia, of chronic disease. 12. GERD. 13. Recurrent depression. 14. Acute urinary tract infection. Discharge plan: Transfer to [facility] under neurosurgery Impression and plan of care have been directed as dictated by the signing physician. Alba Hartley nurse practitioner acting as scribe for signing physician. Patient Condition at Discharge: Stable Plan - Discharge Summary Discharge Rx Participant: No New Discharge Prescriptions: No Action Montelukast [Singulair] 10 mg PO HS@2100 Albuterol Nebulized [Ventolin Nebulized] 2.5 mg INHALATION RT-DAILY@0900 Fluticasone/Vilanterol [Breo Ellipta 100-25 Mcg Inhaler] 1 puff INHALATION RT-DAILY@2100 Albuterol Sulfate [Proair Hfa] 1 - 2 puff INHALATION RT-Q6H PRN PRN Reason: Shortness Of Breath Nateglinide [Starlix] 120 mg PO TID@0800,1200,1800 levETIRAcetam [Keppra] 500 mg PO Q8HR@0600,1400,2200 ALPRAZolam [Xanax] 0.25 mg PO BID@0900,2100 Potassium Chloride ER [K-Dur 10] 10 meq PO BID@0900,1600 Furosemide [Lasix] 40 mg PO BID@0600,1400 buPROPion [Wellbutrin] 100 mg PO BID@0900,2100 Ferrous Sulfate [Feosol] 325 mg PO BID@0900,2100 Metoprolol Succinate (ER) [Toprol XL] 50 mg PO DAILY@0900 Denosumab [Prolia] 60 mg SQ Q6M Esomeprazole Magnesium [NexIUM] 40 mg PO DAILY@0600 Loratadine [Claritin] 10 mg PO HS@2100 Ondansetron Odt [Zofran Odt] 4 mg PO Q8HR PRN #10 tab PRN Reason: Nausea Acetaminophen Tab [Tylenol Tab] 650 mg PO DAILY PRN PRN Reason: Pain Calcium Carbonate [Tums] 1,000 mg PO Q6H PRN PRN Reason: Gi Upset Mylanta Susp 30 ml PO Q4H PRN PRN Reason: Gi Upset Guaifenesin/Dextromethorphan [guaiFENesin DM] 10 ml PO Q4H PRN PRN Reason: Cough Sravanthi-Lanta Susp 30 ml PO Q4H PRN PRN Reason: Gi Upset DULoxetine HCL [Cymbalta] 30 mg PO BID@0900,2099 Cholecalciferol [Vitamin D3 (25 Mcg = 1000 Iu)] 2,000 unit PO DAILY@09 Sennosides/Docusate Sodium [Ariadna Colace] 2 tab PO HS@2099 Melatonin 6 mg PO HS@2099 Folic Acid 0.4 mg PO DAILY@0900 Dexamethasone 8 mg PO DAILY@09 Atorvastatin [Lipitor] 40 mg PO HS@2099 Menthol [Biofreeze] 1 applic TOPICAL Q6H PRN PRN Reason: Pain Discharge Medication List Albuterol Nebulized [Ventolin Nebulized] 2.5 mg INHALATION RT-DAILY@0903/22/17 [History] Montelukast [Singulair] 10 mg PO HS@209903/22/17 [History] Albuterol Sulfate [Proair Hfa] 1 - 2 puff INHALATION RT-Q6H PRN 02/08/19 [History] Fluticasone/Vilanterol [Breo Ellipta 100-25 Mcg Inhaler] 1 puff INHALATION RT- DAILY@209902/08/19 [History] ALPRAZolam [Xanax] 0.25 mg PO BID@0900,209906/01/19 [History] Denosumab [Prolia] 60 mg SQ Q6M 06/01/19 [History] Esomeprazole Magnesium [NexIUM] 40 mg PO DAILY@0600 06/01/19 [History] Ferrous Sulfate [Feosol] 325 mg PO BID@0900,209906/01/19 [History] Furosemide [Lasix] 40 mg PO BID@0600,1400 06/01/19 [History] Metoprolol Succinate (ER) [Toprol XL] 50 mg PO DAILY@0906/01/19 [History] Nateglinide [Starlix] 120 mg PO TID@0800,1200,1800 06/01/19 [History] Potassium Chloride ER [K-Dur 10] 10 meq PO BID@0900,1600 06/01/19 [History] buPROPion [Wellbutrin] 100 mg PO BID@0900,209906/01/19 [History] levETIRAcetam [Keppra] 500 mg PO Q8HR@0600,1400,2200 06/01/19 [History] Loratadine [Claritin] 10 mg PO HS@209907/04/19 [History] Ondansetron Odt [Zofran Odt] 4 mg PO Q8HR PRN #10 tab 07/04/19 [Rx] Acetaminophen Tab [Tylenol Tab] 650 mg PO DAILY PRN 11/10/19 [History] Atorvastatin [Lipitor] 40 mg PO HS@209911/10/19 [History] Calcium Carbonate [Tums] 1,000 mg PO Q6H PRN 11/10/19 [History] Cholecalciferol [Vitamin D3 (25 Mcg = 1000 Iu)] 2,000 unit PO DAILY@89911/10/19 [History] DULoxetine HCL [Cymbalta] 30 mg PO BID@0900,209911/10/19 [History] Dexamethasone 8 mg PO DAILY@0911/10/19 [History] Folic Acid 0.4 mg PO DAILY@89911/10/19 [History] Sravanthi-Lanta Susp 30 ml PO Q4H PRN 11/10/19 [History] Guaifenesin/Dextromethorphan [guaiFENesin DM] 10 ml PO Q4H PRN 11/10/19 [History] Melatonin 6 mg PO HS@209911/10/19 [History] Menthol [Biofreeze] 1 applic TOPICAL Q6H PRN 11/10/19 [History] Mylanta Susp 30 ml PO Q4H PRN 11/10/19 [History] Sennosides/Docusate Sodium [Ariadna Colace] 2 tab PO HS@2100 11/10/19 [History] Follow up Appointment(s)/Referral(s): Manisha Villaseñor MD [Primary Care Provider] - 1-2 days [facility] [place], [NON-STAFF] - As Needed Discharge Disposition: TRANSFER TO SHORT TERM HOSP
[2019-11-12] MEDS: SYMBICORT 80-4.5 MCG INHALER INHALATION SCH (10:28)
--- NOTE | 2019-11-12 10:40 | P.PN ---
Subjective Progress Note Date: 11/12/19 Patient sitting comfortably in the bed. More comfortable. Appears less delirious. Patient's speaking more clearly. Offers no complaints. Objective - Vital Signs Vital signs: Vital Signs Temp 97.9 F 11/12/19 05:00 Pulse 70 11/12/19 05:00 Resp 20 11/12/19 05:00 BP 159/88 11/12/19 05:00 Pulse Ox 97 11/12/19 05:00 Intake & Output 11/11/19 11/12/19 11/12/19 18:59 06:59 18:59 Intake Total 1989 Balance 1989 Weight 120.344 kg Intake: Oral 1989 Other: Voiding Method Bedside Commode Bedside Commode # Voids 2 2 1 # Bowel Movements 1 1 - Exam Patient is alert and awake. Muscle strength is normal. Face is symmetric. - Labs CBC & Chem 7: 11/10/19 13:26 11/10/19 13:26 Labs: Abnormal Lab Results - Last 24 Hours (Table) 11/11/19 11/11/19 11/11/19 Range/Units 12:09 16:49 20:03 POC Glucose (mg/dL) 185 H 235 H 228 H (75-99) mg/dL 11/12/19 Range/Units 06:47 POC Glucose (mg/dL) 180 H (75-99) mg/dL Microbiology - Last 24 Hours (Table) 11/10/19 13:04 Urine Culture - Preliminary Urine,Voided Gram Neg Bacilli 11/10/19 15:45 Blood Culture - Preliminary Blood No Growth after 24 hours Assessment and Plan Assessment: * Altered mental status, likely related to acute delirium. This could be related to an acute UTI, or medication effect, and probably also related to reasons as below. * Brain tumor, with progressive cerebral edema, mass effect and mild midline shift. * Morbid obesity * Peripheral edema. Plan: * I spoke to patient's daughter on the phone. She states that her brain tumor was diagnosed about 7 years ago when she was living in [place]. Patient was recommended to have it removed, but patient wanted to watch it. She was getting serial, surveillance MRIs, and steroids as needed. Patient has never received any surgical treatment, chemo or radiation in the past. Patient also has been diagnosed with seizure disorder for which she is on Keppra and follows up with Dr. Lei Figueroa. * I reviewed computed tomography scan of the head on the computer, agree with findings with evidence of significant vasogenic edema involving the right hemispheric region. * Patient will be continued on Keppra 500 mg twice a day. * Agree with starting Decadron 6 mg IV every 6 hours. * Agree with transfer to [facility] for possible gamma knife versus other options. Discussed with patient's daughter, who is in agreement with transfer. * Patient has gram-negative bacilli UTI. Patient currently on Rocephin and azithromycin.
--- NOTE | 2019-11-12 11:22 | P.PN ---
Subjective Progress Note Date: 11/12/19 Principal diagnosis: Altered mental status The patient is seen today 11/12/2019 in follow-up on the regular medical floor. She is currently sitting up in a chair at the bedside. Alert but disoriented. Some confusion exists. He does have a loose nonproductive cough. Currently afebrile. Maintaining O2 saturations in the 90s on 2 L/m per nasal cannula. Microbiology is really feeling a gram-negative bacilli. Blood cultures revealing no growth. She remains on ceftriaxone and azithromycin along with bronchodilators and Decadron. Objective - Vital Signs Vital signs: Vital Signs Temp 97.9 F 11/12/19 05:00 Pulse 70 11/12/19 05:00 Resp 20 11/12/19 05:00 BP 159/88 11/12/19 05:00 Pulse Ox 97 11/12/19 05:00 Intake & Output 11/11/19 11/12/19 11/12/19 18:59 06:59 18:59 Intake Total 1989 Balance 1989 Weight 120.344 kg Intake: Oral 1989 Other: Voiding Method Bedside Commode Bedside Commode Bedside Commode # Voids 2 2 1 # Bowel Movements 1 1 - Exam GENERAL EXAM: Alert, confused, disoriented, obese 74-year-old female patient, comfortable in no apparent distress. On 2 L nasal cannula. HEAD: Normocephalic. EYES: Normal reaction of pupils, equal size. NOSE: Clear with pink turbinates. THROAT: No erythema or exudates. NECK: No masses, no JVD. CHEST: No chest wall deformity. LUNGS: Equal air entry with few scattered rhonchi, crackles in the posterior bases left greater than right CVS: S1 and S2 normal with no audible murmur, regular rhythm. ABDOMEN: No hepatosplenomegaly, normal bowel sounds, no guarding or rigidity. SPINE: No scoliosis or deformity SKIN: No rashes CENTRAL NERVOUS SYSTEM: Oriented times one, tone is normal in all 4 extremities. EXTREMITIES: There is 1-2+ peripheral edema. No clubbing, no cyanosis. Peripheral pulses are intact. - Labs CBC & Chem 7: 11/10/19 13:26 11/10/19 13:26 Labs: Abnormal Lab Results - Last 24 Hours (Table) 11/11/19 11/11/19 11/11/19 Range/Units 12:09 16:49 20:03 POC Glucose (mg/dL) 185 H 235 H 228 H (75-99) mg/dL 11/12/19 Range/Units 06:47 POC Glucose (mg/dL) 180 H (75-99) mg/dL Microbiology - Last 24 Hours (Table) 11/10/19 13:04 Urine Culture - Preliminary Urine,Voided Gram Neg Bacilli 11/10/19 15:45 Blood Culture - Preliminary Blood No Growth after 24 hours Assessment and Plan Assessment: #1 Altered mental status secondary to brain tumor with worsening vasogenic edema and worsening herniation along with gram negative urinary tract infection. Cu lture pending. #2 Acute exacerbation of chronic obstructive pulmonary disease with pulmonary infiltrates, pneumonia not totally excluded. #3 Acute hypoxic respiratory failure secondary to above. #4 Dementia. #5 History of angina. #6 History of congestive heart failure. #7 Diabetes mellitus. #8 Morbid obesity. #9 Gastroesophageal reflux disease. #10 Hearing disorder. #11 Seizure disorder. #12 Obstructive sleep apnea. Plan: The patient was seen and evaluated by Dr. Sánchez. She is currently stable from the pulmonary standpoint. Continue with bronchodilators, Decadron, antibiotics. Urine culture pending. The patient had been seen and evaluated by neurologic neurology who spoke with the patient's daughter today. They're planning a transfer to [facility] for possible gamma knife treatment to the brain tumor. I, the cosigning physician, performed a history & physical examination of the patient. Lungs sounds few scattered rhonchi, crackles in posterior bases left greater than right. Maintaining good O2 saturations in the 90s on 2 L/m per nasal cannula. I discussed the assessment and plan of care with my nurse practitioner, Sonali Amanda. I attest to the above note as dictated by her.
== END 2019-11-12 12:05 | disposition short-term general hospital (02) | DRG 80 ==
LOC: EC 11:42 → SUPCPDRO 11:42 → 3NMEDONC 15:11
PROVIDERS: ADMIT Internal Medicine; ATTEND Internal Medicine
DX: G93.6 Cerebral edema (principal); G93.5 Compression of brain; J96.21 Acute and chronic respiratory failure with hypoxia; J96.22 Acute and chronic respiratory failure with hypercapnia; J15.6 Pneumonia due to other Gram-negative bacteria; F33.9 Major depressive disorder, recurrent, unspecified; J44.0 Chronic obstructive pulmonary disease with (acute) lower respiratory infection; J44.1 Chronic obstructive pulmonary disease with (acute) exacerbation; N39.0 Urinary tract infection, site not specified; E66.2 Morbid (severe) obesity with alveolar hypoventilation; I44.2 Atrioventricular block, complete; Z68.43 Body mass index [BMI] 50.0-59.9, adult; D32.0 Benign neoplasm of cerebral meninges; D63.8 Anemia in other chronic diseases classified elsewhere; E11.9 Type 2 diabetes mellitus without complications; E78.5 Hyperlipidemia, unspecified; F03.90 Unspecified dementia, unspecified severity, without behavioral disturbance, psychotic disturbance, mood disturbance, and anxiety; F41.9 Anxiety disorder, unspecified; G40.909 Epilepsy, unspecified, not intractable, without status epilepticus; H91.90 Unspecified hearing loss, unspecified ear; I11.0 Hypertensive heart disease with heart failure; I50.9 Heart failure, unspecified; K21.9 Gastro-esophageal reflux disease without esophagitis; M19.90 Unspecified osteoarthritis, unspecified site; M81.0 Age-related osteoporosis without current pathological fracture; B96.89 Other specified bacterial agents as the cause of diseases classified elsewhere; R41.0 Disorientation, unspecified; Z66 Do not resuscitate; Z79.899 Other long term (current) drug therapy; Z87.01 Personal history of pneumonia (recurrent); Z87.891 Personal history of nicotine dependence; Z90.49 Acquired absence of other specified parts of digestive tract; Z95.0 Presence of cardiac pacemaker; Z88.0 Allergy status to penicillin; Z81.8 Family history of other mental and behavioral disorders; Z82.5 Family history of asthma and other chronic lower respiratory diseases
CPT/HCPCS: 36415; 70450; 71046; 80053; 80306; 81001; 83605; 83880; 84484; 85025; 85610; 85730; 87040; 87077; 87086; 87186; 93005; 94640; 94760; 96365; 96375; 99285